=== PATIENT | female | born 1970 | race Caucasian/White ===

== ENCOUNTER 2016-11-15 01:05 | Inpatient (IN) | payer OTHER ==
[2016-11-15] MEDS ORDERED: SODIUM CHLORIDE 0.9% 500 ML IV STA (01:14)
[2016-11-15 01:38] LABS: Basophils # (A) 0.1 k/uL (0-0.2); Basophils % (A) 2 %; CH 38.5; CHCM 34.2; Eosinophils % (A) 1 %; HCT 44.3 % (34.0-46.0); HDW 2.03; HGB 14.8 gm/dL (11.4-16.0); Luc # (Auto) 0.05; Luc % (Auto) 2; Lymphocytes # (A) 0.6 k/uL (1.0-4.8); Lymphocytes % (A) 20 %; MCH 37.5 pg (25.0-35.0); MCHC 33.3 g/dL (31.0-37.0); MCV 112.7 fL (80.0-100.0); Macrocytosis Marked; Mean Platelet Volume 9.7; Monocytes # (A) 0.2 k/uL (0-1.0); Monocytes % (A) 6 %; Neutrophils # (A) 2.1 k/uL (1.3-7.7); Neutrophils % (A) 70 %; RBC 3.93 m/uL (3.80-5.40); RDW 13.9 % (11.5-15.5); WBC (Perox) 2.98
[2016-11-15 01:46] LABS: ALT 36 U/L (9-52); AST 53 U/L (14-36); Alkaline Phosphatase 69 U/L (38-126); Anion Gap 15 mmol/L; Blood Urea Nitrogen 12 mg/dL (7-17); Calcium 9.6 mg/dL (8.4-10.2); Carbon Dioxide 25 mmol/L (22-30); Chloride 97 mmol/L (98-107); Glucose 166 mg/dL (74-99); Magnesium 1.2 mg/dL (1.6-2.3); Non-African American GFR(MDRD) >60 (>60 ml/min/1.73 sqM); Potassium 3.3 mmol/L (3.5-5.1); Sodium 137 mmol/L (137-145); Total Bilirubin 1.4 mg/dL (0.2-1.3); Total Protein 7.4 g/dL (6.3-8.2)
[2016-11-15 01:54] LABS: Manual Review Performed
[2016-11-15 03:02] LABS: Large Platelets Flag Slight
[2016-11-15] MEDS ORDERED: LORazepam 2 MG/ML SYRINGE IV PRN ×2 (03:16)
[2016-11-15] MEDS ORDERED: THIAMINE 100 MG/ML 2 ML VIAL IM STA (03:16)
[2016-11-15] MEDS: SODIUM CHLORIDE 0.9% 1,000 ML IV SCH ×2 (03:34→20:58)
[2016-11-15] MEDS: MAGNESIUM SULFATE-D5W PMX 1 GM in DEXTROSE/WATER 1 100ML.BAG IVPB SCH ×2 (03:35→06:03)
[2016-11-15] MEDS ORDERED: NALOXONE 0.4 MG/ML 1 ML VIAL IV PRN (03:49)
--- NOTE | 2016-11-15 04:11 | ED ---
General Adult HPI - General Chief complaint: Seizure Stated complaint: Seizure Time Seen by Provider: 11/15/16 01:14 Source: patient, family, EMS, RN notes reviewed Mode of arrival: EMS - History of Present Illness Initial comments: 46 yo female with known seizure disorder presents from home after having a generalized tonic-clonic seizure. "EMS and the patient state the seizure was approximately 2 minutes long. She was sitting on the couch when this occurred. There was no trauma. Patient's only complaint at this time is of generalized weakness. Patient has no other known medical problems. She was previously on Lamictal for seizures, she states that she is not taking this in several months and restarted this medication yesterday. She is uncertain of the dose. Patient does not follow with neurology at this time. Patient does admit to alcohol consumption, states her last drink was 4 days ago. - Related Data Allergies Allergy/AdvReac Type Severity Reaction Status Date / Time Penicillins Allergy Unknown Verified 11/15/16 01:11 Sulfa (Sulfonamide Allergy Unknown Verified 11/15/16 01:11 Antibiotics) Review of Systems ROS Statement: Those systems with pertinent positive or pertinent negative responses have been documented in the HPI. ROS Other: All systems not noted in ROS Statement are negative. Past Medical History Past Medical History: Seizure Disorder History of Any Multi-Drug Resistant Organisms: None Reported Additional Past Surgical History / Comment(s): Ruptured spleen Past Psychological History: Bipolar, Depression Smoking Status: Current every day smoker Past Alcohol Use History: Occasional Past Drug Use History: Marijuana General Exam Limitations: no limitations General appearance: alert, in no apparent distress Head exam: Present: atraumatic, normocephalic Eye exam: Present: normal appearance, PERRL, EOMI. Absent: scleral icterus, conjunctival injection ENT exam: Present: normal exam, normal oropharynx, mucous membranes moist Neck exam: Present: normal inspection. Absent: tenderness, meningismus Respiratory exam: Present: normal lung sounds bilaterally. Absent: respiratory distress, wheezes Cardiovascular Exam: Present: regular rate, normal rhythm, normal heart sounds GI/Abdominal exam: Present: soft. Absent: distended, tenderness, guarding Extremities exam: Present: normal inspection, normal capillary refill. Absent: pedal edema Neurological exam: Present: alert, oriented X3, CN II-XII intact. Absent: motor sensory deficit Psychiatric exam: Present: normal affect, normal mood Skin exam: Present: warm, dry, intact. Absent: cyanosis, diaphoretic Course Vital Signs 11/15/16 11/15/16 01:11 03:23 Temperature 97.6 F Pulse Rate 102 H 70 Respiratory 16 16 Rate Blood Pressure 128/94 122/60 O2 Sat by Pulse 97 99 Oximetry EKG Findings - EKG Comments: EKG Findings:: EKG shows normal sinus rhythm, ventricular rate 98, IN interval 122, QRS duration 76, QTC is prolonged at 546 Medical Decision Making - Medical Decision Making 46 yo female with history of seizure disorder recently restarted on her antiepileptics yesterday. Patient to minute clonic tonic seizure today. No injury. Patient does have a history of alcohol abuse, states she drinks several days week, she drinks primarily vodka half pint. Last drink was 4 days ago. Laboratory studies reveal a magnesium level of 1.2, consistent with alcohol abuse, as well as a potassium of 3.3. These are replaced. Patient's EKG does show QT prolongation likely related to hypomagnesemia. Other laboratory studies are unremarkable. Patient remains asymptomatic in seizure free while in the emergency department. Neurologic exam is nonfocal, there is no headache or head trauma. No imaging is obtained at this time. Patient seizure may be related to alcohol withdrawal, seizure disorder, or electrolyte abnormalities. Patient will be admitted for telemetry, likely replacement, and neurology evaluation. Antiepileptics choice is discussed with the pharmacist, and there is no evidence to indicate that Lamictal is a QT prolonging agent. Therefore she is continued on Lamictal. Diagnosis: Seizure, hypomagnesemia, hypokalemia - Lab Data Result diagrams: 11/15/16 01:29 11/15/16 01:29 Lab Results 11/15/16 11/15/16 Range/Units 01:29 01:29 WBC 3.0 L (3.8-10.6) k/uL RBC 3.93 (3.80-5.40) m/uL Hgb 14.8 (11.4-16.0) gm/dL Hct 44.3 (34.0-46.0) % MCV 112.7 H (80.0-100.0) fL MCH 37.5 H (25.0-35.0) pg MCHC 33.3 (31.0-37.0) g/dL RDW 13.9 (11.5-15.5) % Plt Count 53 L (150-450) k/uL Neutrophils % 70 % Lymphocytes % 20 % Monocytes % 6 % Eosinophils % 1 % Basophils % 2 % Neutrophils # 2.1 (1.3-7.7) k/uL Lymphocytes # 0.6 L (1.0-4.8) k/uL Monocytes # 0.2 (0-1.0) k/uL Eosinophils # 0.0 (0-0.7) k/uL Basophils # 0.1 (0-0.2) k/uL Manual Slide Review Performed Macrocytosis Marked Sodium 137 (137-145) mmol/L Potassium 3.3 L (3.5-5.1) mmol/L Chloride 97 L (98-107) mmol/L Carbon Dioxide 25 (22-30) mmol/L Anion Gap 15 mmol/L BUN 12 (7-17) mg/dL Creatinine 0.80 (0.52-1.04) mg/dL Est GFR (MDRD) Af Amer >60 (>60 ml/min/1.73 sqM) Est GFR (MDRD) Non-Af >60 (>60 ml/min/1.73 sqM) Glucose 166 H (74-99) mg/dL Calcium 9.6 (8.4-10.2) mg/dL Magnesium 1.2 L (1.6-2.3) mg/dL Total Bilirubin 1.4 H (0.2-1.3) mg/dL AST 53 H (14-36) U/L ALT 36 (9-52) U/L Alkaline Phosphatase 69 (38-126) U/L Total Protein 7.4 (6.3-8.2) g/dL Albumin 4.5 (3.5-5.0) g/dL Critical Care Time Critical Care Time: Yes Total Critical Care Time: 35 Disposition Clinical Impression: Generalized seizure, Hypomagnesemia Disposition: ADMITTED IP TO THIS [facility] Condition: Stable Referrals: None,Stated [Primary Care Provider] - 1-2 days Decision to Admit Reason: Admit from EC Decision Date: 11/15/16 Decision Time: 03:50
[2016-11-15] MEDS: POTASSIUM CHLORIDE 10 MEQ, LIDOCAINE 2% INJ 10 MG in SODIUM CHLORIDE 0.9% 100 ML IVPB SCH ×4 (05:18→10:39)
[2016-11-15 05:20] LABS: Appearance,Urine Cloudy (Clear); Bilirubin,Urine 1+ (Negative); Glucose,Urine (UA) Negative (Negative); Ketones,Urine 1+ (Negative); Leukocyte Esterase,Urine Moderate (Negative); Mucus,Urine Many /hpf; Nitrite,Urine Negative (Negative); Particle Count 6198; Protein,Urine 1+ (Negative); RBC,Urine 2 /hpf (0-5); Squamous Epithelial Cell,Urine 3 /hpf (0-4); UA Billing (MACRO vs. MICRO) MICRO; WBC,Urine 6 /hpf (0-5)
[2016-11-15 05:43] VITALS: BMI 19.8
[2016-11-15] MEDS: ACETAMINOPHEN TAB 325 MG TAB PO PRN (05:57)
[2016-11-15 06:36] VITALS: RESP 18
[2016-11-15] MEDS: LORazepam 2 MG/ML SYRINGE IV PRN ×2 (07:55→08:00)
[2016-11-15] MEDS ORDERED: PHENYTOIN SODIUM INJ 1,000 MG in SODIUM CHLORIDE 0.9% 100 ML IVPB STA (08:11)
[2016-11-15] MEDS ORDERED: lamoTRIgine 25 MG TAB PO SCH (09:00)
--- NOTE | 2016-11-15 09:02 | CT ---
EXAMINATION TYPE: CT brain wo con DATE OF EXAM: 11/15/2016 COMPARISON: NONE HISTORY: seizure CT DLP: 940.7 mGycm. Automated Exposure Control for Dose Reduction was Utilized. TECHNIQUE: CT scan of the head is performed without contrast. FINDINGS: Ventricles of normal size. There is no mass effect nor midline shift. There is no sign of i ntracranial hemorrhage. The calvarium is intact.. IMPRESSION: Negative CT scan of the brain..
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
[2016-11-15] MEDS: lamoTRIgine 25 MG TAB PO SCH ×2 (10:39→20:54)
[2016-11-15 11:22] LABS: Basophils % (A) 0 %; CHCM 33.7; Eosinophils % (A) 1 %; HCT 40.3 % (34.0-46.0); HDW 2.03; HGB 13.8 gm/dL (11.4-16.0); Luc # (Auto) 0.08; Luc % (Auto) 2; Lymphocytes # (A) 0.8 k/uL (1.0-4.8); Lymphocytes % (A) 19 %; MCH 38.7 pg (25.0-35.0); MCHC 34.2 g/dL (31.0-37.0); MCV 113.2 fL (80.0-100.0); Macrocytosis Marked; Monocytes # (A) 0.2 k/uL (0-1.0); Monocytes % (A) 5 %; Neutrophils # (A) 2.8 k/uL (1.3-7.7); Neutrophils % (A) 73 %; RBC 3.56 m/uL (3.80-5.40); RDW 13.9 % (11.5-15.5); WBC 3.9 k/uL (3.8-10.6); WBC (Perox) 4.03
[2016-11-15 11:29] LABS: Anion Gap 12 mmol/L; Blood Urea Nitrogen 10 mg/dL (7-17); Calcium 9.4 mg/dL (8.4-10.2); Carbon Dioxide 24 mmol/L (22-30); Chloride 103 mmol/L (98-107); Glucose 101 mg/dL (74-99); Magnesium 1.9 mg/dL (1.6-2.3); Non-African American GFR(MDRD) >60 (>60 ml/min/1.73 sqM); Potassium 3.9 mmol/L (3.5-5.1); Sodium 139 mmol/L (137-145)
[2016-11-15 11:54] LABS: Manual Review Performed
[2016-11-15] MEDS: THIAMINE 100 MG TAB PO SCH (15:47)
[2016-11-15] MEDS: PHENYTOIN SODIUM EXTENDED 100 MG CAP PO SCH ×2 (15:47→21:57)
[2016-11-15] MEDS: FOLIC ACID 1 MG TAB PO SCH (15:47)
[2016-11-15] MEDS: CYANOCOBALAMIN 500 MCG TAB PO SCH (15:47)
[2016-11-15] MEDS ORDERED: NICOTINE 14MG/24HR PATCH TRANSDERM SCH (16:03)
--- NOTE | 2016-11-15 18:32 | EEG ---
DATE OF EE11/15/16 INDICATIONS FOR EXAMINATION: This patient is a 46-year-old female being evaluated for seizure disorder. AGE: 46. EEG FINDINGS: A routine 21 channel awake digital EEG recording was accomplished utilizing the 10-20 international system with bipolar and referential montages. The background activity in the most alert resting state consists of a low to medium amplitude, fairly well developed and well sustained 7 Hz activity over the posterior head regions. This posterior rhythm attenuates to eye opening. There is a small amount of low amplitude 18-20 Hz beta activity seen maximally over the anterior head regions. Muscle and movement artifact was observed on a few occasions during the tracing. Hyperventilation was not performed. Photic stimulation at flash frequencies of 2-30 Hz produced a good symmetrical occipital driving response. No epileptiform discharges were seen. IMPRESSION: This EEG is within normal limits for the patients age. The EEG failed to reveal any focal, lateralized or epileptiform abnormalities. Clinical correlation is recommended. MTDD
[2016-11-15] MEDS: NICOTINE 21MG/24HR PATCH TRANSDERM SCH (20:54)
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
[2016-11-16] MEDS: ACETAMINOPHEN TAB 325 MG TAB PO PRN (02:57)
[2016-11-16 06:28] LABS: Basophils % (A) 0 %; CH 37.5; CHCM 31.8; Eosinophils % (A) 1 %; HCT 38.7 % (34.0-46.0); HDW 2.01; HGB 12.3 gm/dL (11.4-16.0); Luc # (Auto) 0.09; Luc % (Auto) 3; Lymphocytes % (A) 28 %; MCH 37.7 pg (25.0-35.0); MCHC 31.8 g/dL (31.0-37.0); Macrocytosis Marked; Monocytes # (A) 0.3 k/uL (0-1.0); Monocytes % (A) 8 %; Neutrophils # (A) 2.1 k/uL (1.3-7.7); Neutrophils % (A) 61 %; RBC 3.27 m/uL (3.80-5.40); RDW 13.9 % (11.5-15.5); WBC 3.5 k/uL (3.8-10.6)
[2016-11-16 06:41] LABS: MCV 118.4 fL (80.0-100.0)
[2016-11-16 06:43] LABS: ALT 38 U/L (9-52); AST 65 U/L (14-36); Alkaline Phosphatase 49 U/L (38-126); Anion Gap 13 mmol/L; Blood Urea Nitrogen 12 mg/dL (7-17); Calcium 9.3 mg/dL (8.4-10.2); Carbon Dioxide 24 mmol/L (22-30); Chloride 106 mmol/L (98-107); Glucose 87 mg/dL (74-99); Magnesium 1.7 mg/dL (1.6-2.3); Non-African American GFR(MDRD) >60 (>60 ml/min/1.73 sqM); Potassium 3.4 mmol/L (3.5-5.1); Sodium 143 mmol/L (137-145); Total Bilirubin 1.2 mg/dL (0.2-1.3); Total Protein 6.5 g/dL (6.3-8.2)
[2016-11-16] MEDS: PHENYTOIN SODIUM EXTENDED 100 MG CAP PO SCH (08:13)
[2016-11-16] MEDS: NICOTINE 21MG/24HR PATCH TRANSDERM SCH (08:13)
[2016-11-16] MEDS: POTASSIUM CHLORIDE ER 20 MEQ TAB.ER PO SCH ×2 (08:13→09:53)
[2016-11-16 08:14] LABS: Manual Review Performed
[2016-11-16 08:43] VITALS: BP 112/71; PULSE 100; TEMP 97.9
[2016-11-16] MEDS ORDERED: NICOTINE 14MG/24HR PATCH TRANSDERM SCH (09:00)
[2016-11-16] MEDS: FOLIC ACID 1 MG TAB PO SCH (09:54)
[2016-11-16] MEDS: THIAMINE 100 MG TAB PO SCH (09:54)
[2016-11-16] MEDS: CYANOCOBALAMIN 500 MCG TAB PO SCH (09:54)
--- NOTE | 2016-11-16 11:58 | P.DS ---
Providers Date of admission: 11/15/16 03:52 Attending physician: Roger Carballo Consults: 11/15/16 03:50 Consult Physician Urgent Consulting Provider: Leonarda Peralta Consult Reason/Comments: Seizure Do you want consulting provider notified?: Yes, Notify in am Primary care physician: Stated None Hospital Course: This is a 46-year-old female with history of seizure disorder apparently was previously on Lamictal and Prozac however stopped taking the medications or 12 months ago. Patient has a history of alcohol overuse. Apparently has been on a binge in the recent times states her last drink was on Thursday comes into the hospital after having a seizure. Patient is unclear about her seizure history states that in the past was after an alcohol withdrawal that she was started on antiseizure medications Denies having any suicidal or homicidal thoughts. Denies having any headaches change in vision nausea vomiting abdominal pain or diarrhea Patient was noted to have hypomagnesemia and hypokalemia on admission Patient was restarted on Lamictal and phenytoin was started by our on-call neurologist No new overnight events are no seizure activity in the hospital at this time. A 22,017 No new overnight events. Patient is more awake today states that her onset of seizures were in her 20s apparently at that time he was secondary to alcohol withdrawal as well. Patient was started on Lamictal for her bipolar disorder and not for seizure activity Patient apparently has not taken her medications for over 2 months Physical exam Gen. appearance oriented 3 in no distress Neck is supple no JVD Lungs good air entry clear to auscultation no rhonchi or wheezing Heart S1-S2 heard regular rate and rhythm no murmurs appreciated Abdomen is soft nontender no organomegaly bowel sounds are intact Neurologically cranial nerves II-12 grossly intact no focal motor or sensory deficits noted Skin no abnormalities appreciated Plan: #1 refractory seizures this is likely due to the lack of medication adherence to Lamictal Prozac and withdrawal from alcohol or graft patient does not have a history of generalized seizure disorder since due to substance withdrawal and electrolyte dysfunction there is no indication to start a new medication on this patient #2 alcohol overuse #3 bicytopenia due to alcohol overuse #4 ongoing tobacco use #5 hypomagnesemia #6 hypokalemia #Mildly elevated bilirubin is likely due to #2 Discharge with thiamine for 7 days. Alcohol cessation was discussed Thrombocytopenia is noted which is secondary to alcohol use no bleeding episodes discharged home in a stable condition. Patient Condition at Discharge: Stable Plan - Discharge Summary New Discharge Prescriptions: Continue lamoTRIgine [LaMICtal] 25 mg PO BID FLUoxetine HCL [PROzac] 20 mg PO DAILY Discharge Medication List FLUoxetine HCL [PROzac] 20 mg PO DAILY 11/15/16 [History] lamoTRIgine [LaMICtal] 25 mg PO BID 11/15/16 [History] Follow up Appointment(s)/Referral(s): None,Stated [Primary Care Provider] - 1-2 days Patient Instructions/Handouts: Recurrent Seizures in Adults (DC) Discharge Disposition: HOME SELF-CARE
== END 2016-11-16 13:25 | disposition home or self-care (01) | DRG 101 ==
LOC: EC 01:05 → 6SEL 03:52
PROVIDERS: ADMIT Hospitalist; ATTEND Hospitalist
DX: G40.89 Other seizures (principal); D69.59 Other secondary thrombocytopenia; E83.42 Hypomagnesemia; E87.6 Hypokalemia; F17.210 Nicotine dependence, cigarettes, uncomplicated; F31.9 Bipolar disorder, unspecified; F41.9 Anxiety disorder, unspecified; F10.10 Alcohol abuse, uncomplicated; F12.90 Cannabis use, unspecified, uncomplicated; Z79.899 Other long term (current) drug therapy; Z88.0 Allergy status to penicillin; Z88.2 Allergy status to sulfonamides
CPT/HCPCS: 36415; 70450; 80048; 80053; 80175; 80185; 80306; 81001; 83735; 85025; 93005; 95819; 96361; 96365; 99285

== ENCOUNTER 2018-01-06 14:00 | Inpatient (IN) | payer OTHER ==
--- NOTE | 2018-01-06 14:44 | ED ---
General Adult HPI - General Chief complaint: Abdominal Pain Stated complaint: Abd Pain Source: patient Mode of arrival: ambulatory Limitations: no limitations - History of Present Illness Initial comments: Dictation was produced using hiogi dictation software. please excuse any grammatical, word or spelling errors. Chief Complaint: 47-year-old female with past medical history of seizures and depression presents by instructions from panic care physician for abdominal pain. History of Present Illness: Patient is a 47-year-old chronic alcoholic who presents with chief complaint of abdominal discomfort. Patient was seen by primary care physician yesterday. She was told to the emergency department. She went to [facility] where they had a 6 hour wait. She had labs drawn however left without seeing the physician. She is here today to complete that workup. Patient states she's been having abdominal discomfort for like the last week. She states she had increased weight gain. Discussed patient case with primary care physician who thinks she needed a CT abdomen or abdominal ultrasound emergently. She denies any constitutional symptoms. The ROS documented in this emergency department record has been reviewed and confirmed by me. Those systems with pertinent positive or negative responses have been documented in the HPI. All other systems are other negative and/or noncontributory. - Related Data Home Medications Medication Instructions Recorded Confirmed FLUoxetine HCL [PROzac] 40 mg PO DAILY 10/15/16 01/06/18 Niacin [Niacin ER] 500 mg PO DAILY 01/06/18 01/06/18 lamoTRIgine [LaMICtal] 25 mg PO BID 01/06/18 01/06/18 Allergies Allergy/AdvReac Type Severity Reaction Status Date / Time Sulfa (Sulfonamide Allergy Swelling Verified 01/06/18 14:52 Antibiotics) walnut Allergy Anaphylaxis Verified 01/06/18 14:52 Review of Systems ROS Statement: Those systems with pertinent positive or pertinent negative responses have been documented in the HPI. ROS Other: All systems not noted in ROS Statement are negative. Past Medical History Past Medical History: No Reported History Additional Past Medical History / Comment(s): depression History of Any Multi-Drug Resistant Organisms: None Reported Past Surgical History: No Surgical Hx Reported Past Psychological History: Anxiety, Depression Smoking Status: Current every day smoker Past Alcohol Use History: Daily, Heavy Past Drug Use History: None Reported General Exam - General Exam Comments Initial Comments: PHYSICAL EXAM: General Impression: Alert and oriented x3, not in acute distress, no respiratory distress HEENT: Normocephalic atraumatic, extra-ocular movements intact, pupils equal and reactive to light bilaterally, mucous membranes moist. Cardiovascular: Heart regular rate and rhythm, S1&S2 audible, no murmurs, rubs or gallops Chest: Lungs clear to auscultation bilaterally, no rhonchi, no wheeze, no rales Abdomen: Diffuse abdominal distention, positive fluid wave Musculoskeletal: Pulses present and equal in all extremities, no peripheral edema Motor: Power 5/5 bilaterally, no focal deficits noted Neurological: CN II-XII grossly intact, no focal motor or sensory deficits noted Skin: Intact with no visualized rashes Psych: Normal affect and mood Limitations: no limitations Course Vital Signs 01/06/18 14:06 Temperature 98.5 F Pulse Rate 109 H Respiratory 20 Rate Blood Pressure 106/76 O2 Sat by Pulse 98 Oximetry Medical Decision Making - Medical Decision Making ED course: 47-year-old female who presents with clinical presentation suspicious for ascites. Patient denies any constitutional symptoms. As upon arrival are within acceptable limits. There is very low clinical suspicion of a spontaneous bacterial peritonitis at this time. No indication for emergent or urgent paracentesis. Laboratory evaluation obtained.Laboratory evaluation tape. Hemoglobin 11.2. No old hemoglobin for comparison. Macrocytic anemia., 89. INR is 1.4. Metabolic panel was obtained with mild gap acidosis. Glucose 108. Mild transaminitis with total bilirubin of 1.8. Abdominal CT was obtained showing multiple hepatic lesions, perihepatic ascites. Diseases without to be neoplastic in etiology. Patient is a chronic alcoholic since unclear whether this lesions are from chronic alcoholism versus neoplasm. Patient admitted to internal medicine for likely paracentesis, GI consult and evaluation of liver lesions. - Lab Data Result diagrams: 01/06/18 15:18 01/06/18 15:18 Lab Results 01/06/18 01/06/18 01/06/18 Range/Units 15:18 15:18 15:18 WBC 9.2 (3.8-10.6) k/uL RBC 2.93 L (3.80-5.40) m/uL Hgb 11.2 L (11.4-16.0) gm/dL Hct 34.0 (34.0-46.0) % MCV 116.1 H (80.0-100.0) fL MCH 38.3 H (25.0-35.0) pg MCHC 33.0 (31.0-37.0) g/dL RDW 13.1 (11.5-15.5) % Plt Count 89 L (150-450) k/uL Neutrophils % 81 % Lymphocytes % 9 % Monocytes % 7 % Eosinophils % 1 % Basophils % 0 % Neutrophils # 7.4 (1.3-7.7) k/uL Lymphocytes # 0.8 L (1.0-4.8) k/uL Monocytes # 0.6 (0-1.0) k/uL Eosinophils # 0.1 (0-0.7) k/uL Basophils # 0.0 (0-0.2) k/uL Manual Slide Review Performed Polychromasia Present Poikilocytosis (manual Present Macrocytosis Marked PT 13.5 H (9.0-12.0) sec INR 1.4 H (<1.2) Sodium 135 L (137-145) mmol/L Potassium 4.1 (3.5-5.1) mmol/L Chloride 101 (98-107) mmol/L Carbon Dioxide 21 L (22-30) mmol/L Anion Gap 13 mmol/L BUN 4 L (7-17) mg/dL Creatinine 0.53 (0.52-1.04) mg/dL Est GFR (CKD-EPI)AfAm >90 (>60 ml/min/1.73 sqM) Est GFR (CKD-EPI)NonAf >90 (>60 ml/min/1.73 sqM) Glucose 108 H (74-99) mg/dL Calcium 8.3 L (8.4-10.2) mg/dL Magnesium 1.9 (1.6-2.3) mg/dL Total Bilirubin 1.8 H (0.2-1.3) mg/dL AST 128 H (14-36) U/L ALT 37 (9-52) U/L Alkaline Phosphatase 152 H (38-126) U/L Total Protein 6.8 (6.3-8.2) g/dL Albumin 3.1 L (3.5-5.0) g/dL Lipase 223 (23-300) U/L Disposition Clinical Impression: Liver lesion Disposition: ADMITTED IP TO THIS HOSP Condition: Fair Referrals: Mary Aburto DO [Primary Care Provider] - 1-2 days Decision Time: 16:29
[2018-01-06 15:30] LABS: Basophils % (A) 0 %; Eosinophils # (A) 0.1 k/uL (0-0.7); Eosinophils % (A) 1 %; HGB 11.2 gm/dL (11.4-16.0); Lymphocytes # (A) 0.8 k/uL (1.0-4.8); Lymphocytes % (A) 9 %; MCH 38.3 pg (25.0-35.0); MCV 116.1 fL (80.0-100.0); Macrocytosis Marked; Mean Platelet Volume 10.1; Monocytes # (A) 0.6 k/uL (0-1.0); Monocytes % (A) 7 %; Neutrophils # (A) 7.4 k/uL (1.3-7.7); Neutrophils % (A) 81 %; RBC 2.93 m/uL (3.80-5.40); RDW 13.1 % (11.5-15.5); WBC 9.2 k/uL (3.8-10.6)
[2018-01-06 15:31] LABS: INR 1.4 (<1.2); Prothrombin Time 13.5 sec (9.0-12.0)
[2018-01-06 15:34] LABS: ALT 37 U/L (9-52); AST 128 U/L (14-36); Albumin 3.1 g/dL (3.5-5.0); Alkaline Phosphatase 152 U/L (38-126); Anion Gap 13 mmol/L; Blood Urea Nitrogen 4 mg/dL (7-17); Calcium 8.3 mg/dL (8.4-10.2); Carbon Dioxide 21 mmol/L (22-30); Chloride 101 mmol/L (98-107); Glucose 108 mg/dL (74-99); Lipase 223 U/L (23-300); Magnesium 1.9 mg/dL (1.6-2.3); Potassium 4.1 mmol/L (3.5-5.1); Sodium 135 mmol/L (137-145); Total Bilirubin 1.8 mg/dL (0.2-1.3); Total Protein 6.8 g/dL (6.3-8.2)
[2018-01-06 15:46] LABS: Poikilocytosis (M) Present; Polychromasia Present
[2018-01-06 15:47] LABS: Platelet Count 89 k/uL (150-450)
--- NOTE | 2018-01-06 15:53 | CT ---
EXAMINATION TYPE: CT abdomen pelvis wo con DATE OF EXAM: 01/06/2018 COMPARISON: None HISTORY: abdominal pain, distention, elevated liver enzymes CT DLP: 398.6 mGycm Automated exposure control for dose reduction was used. TECHNIQUE: Helical acquisition of images was performed from the lung bases through the pelvis. FINDINGS: There are numerous hypoattenuated hepatic lesions with the most defined measuring 5.7 x 8.6 cm. There appears to background hepatic disease as there is a nodular contour of the liver left hepatic lobe a trophy. There is moderate perihepatic ascites and recanalization of the umbilical vein as well as per iportal adenopathy with the largest lymph node measuring 1.5 cm in short axis, and diffuse mesenteric edema. There is also congestive colopathy of the transverse colon as it courses near the hepatorenal fossa on image 39 with thickened hernandes. This extends to the ascending colon. Congestive colopathy is also seen of the splenic flexure such as on image 27. There is mass effect upon the inferior vena ca va by the hepatic masses such as on image 26. The gallbladder is elongated. No cholelithiasis. Scattered prominent mesenteric lymph nodes are seen in addition to mesenteric congestion. No dilated large or small bowel is seen. Uterus is grossly unremarkable. Urinary bladder is incompletely distend ed. Abdominal aorta is of normal course and caliber with mild atherosclerosis. The unenhanced kidneys , adrenal glands, and pancreas are unremarkable. The spleen is nonenlarged measuring 9.8 cm in cranio caudal dimension. Osseous structures are intact. IMPRESSION: MULTIPLE HYPOATTENUATED HEPATIC LESIONS SUSPICION FOR UNDERLYING HEPATOCELLULAR DISEASE, PERIHEPATIC ASCITES (MODERATE ABDOMINOPELVIC ASCITES), PERIPORTAL EDEMA, AND MESENTERIC CONGESTION RESULTING IN C ONGESTIVE COLOPATHY. HEPATIC LESIONS ARE SUSPECTED TO BE NEOPLASTIC, EITHER PRIMARY OR SECONDARY, ALT DIA MULTIFOCAL ABSCESSES ARE POSSIBLE IN THE APPROPRIATE CLINICAL SETTING. THESE LESIONS ARE INCOMP LETELY EVALUATED WITHOUT CONTRAST AND COULD BE FURTHER ASSESSED WITH THREE-PHASE MRI OR BIOPSY.
[2018-01-06] MEDS ORDERED: NALOXONE 0.4 MG/ML 1 ML VIAL IV PRN (16:22)
[2018-01-06] MEDS ORDERED: NICOTINE 7MG/24HR PATCH TRANSDERM STA (16:25)
[2018-01-06] MEDS ORDERED: LORazepam 2 MG/ML INJ IV PRN ×2 (16:26)
[2018-01-06] MEDS ORDERED: THIAMINE 100 MG/ML 2 ML VIAL IM STA (16:26)
[2018-01-06] MEDS ORDERED: SODIUM CHLORIDE 0.9% 500 ML IV STA (16:26)
[2018-01-06] MEDS: LORazepam 2 MG/ML INJ IV PRN (17:00)
--- NOTE | 2018-01-06 17:42 | P.HPIM ---
History of Present Illness 47-year-old pleasant female came in the because of increasing ascites abdominal distention and her pants are not fitting anymore. Patient does have history of alcoholism does drink alcohol on daily basis about 5 drinks of wine. Tried to cut down in the past and had withdrawals in the past because of this. Patient the was never diagnosed to have cirrhosis. CAT scan of the abdomen was obtained which did show significant ascites and there are multiple lesions in the liver with possibly of metastatic disease. I'm obtaining hepatitis panel and also fetoprotein. We will obtain therapy can diagnostic paracentesis. Patient was started on IV Lasix and the patient was also started on Ativan CIWA protocol, denied any hematemesis hematochezia or bright blood red blood per rectum Review of Systems REVIEW OF SYSTEMS: CONSTITUTIONAL: No fever, no malaise, no fatigue. HEENT: No recent visual problems or hearing problems. Denied any sore throat. CARDIOVASCULAR: No chest pain, orthopnea, PND, no palpitations, no syncope. PULMONARY: No shortness of breath, no cough, no hemoptysis. GASTROINTESTINAL: No diarrhea, no nausea, no vomiting, no abdominal pain. Normoactive bowel sounds. NEUROLOGICAL: No headaches, no weakness, no numbness. HEMATOLOGICAL: Denies any bleeding or petechiae. GENITOURINARY: Denies any burning micturition, frequency, or urgency. MUSCULOSKELETAL/RHEUMATOLOGICAL: Denies any joint pain, swelling, or any muscle pain. ENDOCRINE: Denies any polyuria or polydipsia. The rest of the 14-point review of systems is negative. Past Medical History Past Medical History: No Reported History Additional Past Medical History / Comment(s): depression History of Any Multi-Drug Resistant Organisms: None Reported Past Surgical History: No Surgical Hx Reported Past Psychological History: Anxiety, Depression Smoking Status: Current every day smoker Past Alcohol Use History: Daily, Heavy Past Drug Use History: None Reported Medications and Allergies Home Medications Medication Instructions Recorded Confirmed Type FLUoxetine HCL [PROzac] 40 mg PO DAILY 10/15/16 01/06/18 History Niacin [Niacin ER] 500 mg PO DAILY 01/06/18 01/06/18 History lamoTRIgine [LaMICtal] 25 mg PO BID 01/06/18 01/06/18 History Allergies Allergy/AdvReac Type Severity Reaction Status Date / Time Sulfa (Sulfonamide Allergy Swelling Verified 01/06/18 14:52 Antibiotics) walnut Allergy Anaphylaxis Verified 01/06/18 14:52 Physical Exam Vitals: Vital Signs Temp Pulse Resp BP Pulse Ox 01/06/18 17:15 98.4 F 01/06/18 16:27 89 16 101/61 97 01/06/18 14:06 98.5 F 109 H 20 106/76 98 Intake and Output 01/06/18 01/06/18 01/06/18 06:59 14:59 22:59 Other: Weight 62.051 kg PHYSICAL EXAMINATION: GENERAL: The patient is alert and oriented x3, not in any acute distress. Well developed, well nourished. HEENT: Pupils are round and equally reacting to light. EOMI. No scleral icterus. No conjunctival pallor. Normocephalic, atraumatic. No pharyngeal erythema. No thyromegaly. CARDIOVASCULAR: S1 and S2 present. No murmurs, rubs, or gallops. PULMONARY: Chest is clear to auscultation, no wheezing or crackles. ABDOMEN: Abdomen is distended, shifting dullness no tenderness. MUSCULOSKELETAL: No joint swelling or deformity. EXTREMITIES: No cyanosis, clubbing, or pedal edema. NEUROLOGICAL: Gross neurological examination did not reveal any focal deficits. SKIN: No rashes. Results CBC & Chem 7: 01/06/18 15:18 01/06/18 15:18 Labs: Abnormal Lab Results - Last 24 Hours (Table) 01/06/18 01/06/18 01/06/18 Range/Units 15:18 15:18 15:18 RBC 2.93 L (3.80-5.40) m/uL Hgb 11.2 L (11.4-16.0) gm/dL MCV 116.1 H (80.0-100.0) fL MCH 38.3 H (25.0-35.0) pg Plt Count 89 L (150-450) k/uL Lymphocytes # 0.8 L (1.0-4.8) k/uL PT 13.5 H (9.0-12.0) sec INR 1.4 H (<1.2) Sodium 135 L (137-145) mmol/L Carbon Dioxide 21 L (22-30) mmol/L BUN 4 L (7-17) mg/dL Glucose 108 H (74-99) mg/dL Calcium 8.3 L (8.4-10.2) mg/dL Total Bilirubin 1.8 H (0.2-1.3) mg/dL AST 128 H (14-36) U/L Alkaline Phosphatase 152 H (38-126) U/L Albumin 3.1 L (3.5-5.0) g/dL Assessment and Plan Plan: -Alcoholic cirrhosis: If patient blood pressure is okay patient will be started on Lasix will order diagnostic and paracentesis. No signs of spontaneous bacterial peritonitis -Alcohol abuse: Counseling was provided Given all call withdrawal: Patient will be started on Ativan CIWA protocol -Acute alcoholic hepatitis with positive a colic gastritis patient will be started on Protonix -Coagulopathy secondary to liver disease -Elevated MCV secondary to cirrhosis and alcoholism. -Bipolar -Nicotine abuse: Counseling was provided -Lesions on the liver will need a biopsy once she is stabilized regarding cirrhosis and alcohol withdrawal perspective
[2018-01-06 18:16] VITALS: BMI 22.7
[2018-01-06] MEDS: lamoTRIgine 25 MG TAB PO SCH (21:38)
[2018-01-06] MEDS: FUROSEMIDE 10 MG/ML 4 ML VIAL IV SCH (21:40)
[2018-01-07] MEDS: LORazepam 2 MG/ML INJ IV PRN ×2 (02:55→11:05)
[2018-01-07 04:20] LABS: Hepatitis A Antibody IgM Non-Reactive (Non-Reactive); Hepatitis B Core IgM Non-Reactive (Non-Reactive)
[2018-01-07 08:03] LABS: ALT 36 U/L (9-52); AST 101 U/L (14-36); Albumin 2.3 g/dL (3.5-5.0); Alkaline Phosphatase 122 U/L (38-126); Anion Gap 6 mmol/L; Blood Urea Nitrogen 6 mg/dL (7-17); Calcium 7.8 mg/dL (8.4-10.2); Carbon Dioxide 27 mmol/L (22-30); Chloride 102 mmol/L (98-107); Glucose 86 mg/dL (74-99); Potassium 3.5 mmol/L (3.5-5.1); Sodium 135 mmol/L (137-145); Total Bilirubin 1.9 mg/dL (0.2-1.3); Total Protein 5.4 g/dL (6.3-8.2)
[2018-01-07 08:21] LABS: HCT 27.7 % (34.0-46.0); MCHC 32.8 g/dL (31.0-37.0); MCV 115.6 fL (80.0-100.0); Macrocytosis Marked; Mean Platelet Volume 9.2; RDW 13.6 % (11.5-15.5); WBC 6.1 k/uL (3.8-10.6)
[2018-01-07 08:25] LABS: HGB 9.1 gm/dL (11.4-16.0); Platelet Count 69 k/uL (150-450)
--- NOTE | 2018-01-07 10:16 | P.CONS ---
History of Present Illness - Reason for Consult Consult date: 01/07/18 Liver lesions Requesting physician: Gigi Wolff - Chief Complaint Abdominal pain - History of Present Illness 47-year-old female admitted with acute abdominal pain 1 week with increased weight gain abdominal bloatedness. Past medical history of EtOH abuse drinks wine on a daily basis. CT abdomen and pelvis reported nodular contour to liver recannulization of umbilical vein as well as. Portal adenopathy largest lymph node measuring 1.5 cm with diffuse mesenteric edema significant ascites with multiple hypoattenuated lesions in the liver suspicion for underlying hepatocellular disease possibility of metastatic disease however multifocal abscesses could not be excluded. Denies fever chills hematemesis hematochezia melena. White count 6.1-9.2. Hemoglobin 9.1-11.2. MCV 115. Platelet 69-89. INR 1.4. Total bilirubin 1.8-1.9. AST 101-120. ALT 36-37. AP 122-152. AFP 2.7. Lipase 223. Hepatitis screen nonreactive. Review of Systems Constitutional: Denies fever, chills, sweats, reported weight gain denies weight loss. HEENT: Negative for migraines, blurred vision or loss, earaches, drainage, tinnitus, oral mucosal lesions, dysphagia, or odynophagia. CARDIAC: Negative for chest pain, arrhythmias, or palpitation. RESPIRATORY: Negative for shortness of breath, hemoptysis, cough, or sputum production. GI: See HPI for pertinent findings. : Negative for hematuria, urgency, frequency, polyuria, or dysuria. GYNc: Denies possibility of . Negative vaginal discharge. MUSCULOSKELETAL: Negative for muscle aches, swelling, arthritis, and arthralgias. NEUROLOGIC: Negative for stroke or TIA. ENDOCRINE: Negative for thyroid problems. SKIN: Negative for rash or itching. PSYCHIATRIC: Negative history for depression and anxiety Past Medical History Past Medical History: Asthma Additional Past Medical History / Comment(s): depression History of Any Multi-Drug Resistant Organisms: None Reported Past Surgical History: No Surgical Hx Reported Past Psychological History: Anxiety, Depression Smoking Status: Current every day smoker Past Alcohol Use History: Daily, Heavy Past Drug Use History: None Reported Medications and Allergies Home Medications Medication Instructions Recorded Confirmed Type FLUoxetine HCL [PROzac] 40 mg PO DAILY 10/15/16 01/06/18 History Niacin [Niacin ER] 500 mg PO DAILY 01/06/18 01/06/18 History lamoTRIgine [LaMICtal] 25 mg PO BID 01/06/18 01/06/18 History Allergies Allergy/AdvReac Type Severity Reaction Status Date / Time Sulfa (Sulfonamide Allergy Swelling Verified 01/06/18 14:52 Antibiotics) walnut Allergy Anaphylaxis Verified 01/06/18 14:52 Physical Exam Vitals: Vital Signs Temp Pulse Pulse Resp BP BP Pulse Ox 01/07/18 07:00 98.4 F 93 16 91/61 01/07/18 00:45 15 01/07/18 00:35 100 F H 119 H 15 93/59 93 L 01/06/18 20:50 119 H 15 01/06/18 19:00 98.4 F 108 H 16 94 L 01/06/18 17:15 98.4 F 01/06/18 16:27 89 16 101/61 97 01/06/18 14:06 98.5 F 109 H 20 106/76 98 Intake and Output 01/06/18 01/07/18 01/07/18 22:59 06:59 14:59 Intake Total 0 500 Balance 0 500 Intake: Intake, IV Titration 500 Amount Sodium Chloride 0.9% 500 500 ml @ 999 mls/hr IV .Q31M STA Rx#:[id number] Oral 0 Other: # Voids 2 2 Weight 62.051 kg General appearance: The patient is alert, oriented, in no acute distress. HET: Head is normocephalic and atraumatic. Pupils are equal and reactive. Oropharynx is clear without lesions. Neck: Supple without lymphadenopathy. Trachea midline. Heart: S1 S2. Regular rate and rhythm. Lungs: No crackles or wheezes are heard. Abdomen: Soft, mild midabdomen tenderness with mild ascites normal bowel sounds. No peritoneal signs. No palpable organomegaly or masses. Extremities: Normal skin color and turgor. No cyanosis, rash, ulceration, clubbing, or edema. Radial and pedal pulses are 2/4 bilaterally. Neurological: No focal deficits. Strength and sensation are grossly intact. Results CBC & Chem 7: 01/07/18 07:11 01/07/18 07:11 Labs: Abnormal Lab Results - Last 24 Hours (Table) 01/06/18 01/06/18 01/06/18 Range/Units 15:18 15:18 15:18 RBC 2.93 L (3.80-5.40) m/uL Hgb 11.2 L (11.4-16.0) gm/dL Hct (34.0-46.0) % MCV 116.1 H (80.0-100.0) fL MCH 38.3 H (25.0-35.0) pg Plt Count 89 L (150-450) k/uL Lymphocytes # 0.8 L (1.0-4.8) k/uL PT 13.5 H (9.0-12.0) sec INR 1.4 H (<1.2) Sodium 135 L (137-145) mmol/L Carbon Dioxide 21 L (22-30) mmol/L BUN 4 L (7-17) mg/dL Glucose 108 H (74-99) mg/dL Calcium 8.3 L (8.4-10.2) mg/dL Total Bilirubin 1.8 H (0.2-1.3) mg/dL AST 128 H (14-36) U/L Alkaline Phosphatase 152 H (38-126) U/L Total Protein (6.3-8.2) g/dL Albumin 3.1 L (3.5-5.0) g/dL 01/07/18 01/07/18 Range/Units 07:11 07:11 RBC 2.40 L (3.80-5.40) m/uL Hgb 9.1 L D (11.4-16.0) gm/dL Hct 27.7 L (34.0-46.0) % MCV 115.6 H (80.0-100.0) fL MCH 38.0 H (25.0-35.0) pg Plt Count 69 L (150-450) k/uL Lymphocytes # (1.0-4.8) k/uL PT (9.0-12.0) sec INR (<1.2) Sodium 135 L (137-145) mmol/L Carbon Dioxide (22-30) mmol/L BUN 6 L (7-17) mg/dL Glucose (74-99) mg/dL Calcium 7.8 L (8.4-10.2) mg/dL Total Bilirubin 1.9 H (0.2-1.3) mg/dL AST 101 H (14-36) U/L Alkaline Phosphatase (38-126) U/L Total Protein 5.4 L (6.3-8.2) g/dL Albumin 2.3 L (3.5-5.0) g/dL CT scan - abdomen: report reviewed (Dr. Alcantar) Assessment and Plan (1) Abdominal pain Narrative/Plan: 47-year-old female admitted with acute abdominal pain 1 week with increased abdominal distention radiographic imaging consistent with new onset of ascites and cirrhotic-appearing contoured liver most likely alcohol related however underlying chronic liver disease cannot be excluded. CT reported multiple hypoattenuating lesions possible neoplasm possible multifocal abscesses within the differential. Current Visit: Yes Status: Acute Code(s): R10.9 - UNSPECIFIED ABDOMINAL PAIN SNOMED Code(s): 86065626 (2) ETOH abuse Current Visit: Yes Status: Acute Code(s): F10.10 - ALCOHOL ABUSE, UNCOMPLICATED SNOMED Code(s): 12129086 (3) Ascites Current Visit: Yes Status: Acute Code(s): R18.8 - OTHER ASCITES SNOMED Code(s): 583218289 (4) Cirrhosis of liver Narrative/Plan: possible alcohol cirrhosis Current Visit: Yes Status: Acute Code(s): K74.60 - UNSPECIFIED CIRRHOSIS OF LIVER SNOMED Code(s): 53954777 (5) Liver lesion Current Visit: Yes Status: Acute Code(s): K76.9 - LIVER DISEASE, UNSPECIFIED SNOMED Code(s): 000288569 Plan: 1. Therapeutic diagnostic paracentesis. Hepatitis screen and AFP marker reviewed. CEA. 2. Recommend MRI/MRCP after paracentesis. Consideration for chronic liver disease workup based on clinical course and MRI findings. Thank you for this kind referral and the opportunity to participate in the care of your patient. This consultation was discussed with Dr. Alcantar. The impression and plan of care have been directed as dictated.
[2018-01-07] MEDS: PANTOPRAZOLE 40 MG/10 ML VIAL IVP SCH ×2 (10:28→10:32)
[2018-01-07] MEDS: lamoTRIgine 25 MG TAB PO SCH ×2 (10:32→21:06)
[2018-01-07] MEDS: FUROSEMIDE 10 MG/ML 4 ML VIAL IV SCH ×2 (10:32→21:02)
[2018-01-07] MEDS: FLUoxetine HCL 20 MG CAP PO SCH (10:32)
[2018-01-07] MEDS: THIAMINE 100 MG TAB PO SCH ×2 (15:32→17:36)
--- NOTE | 2018-01-07 15:37 | P.PN ---
Subjective 47-year-old admitted via for ascites does not have responded is back to peritonitis patient ascites did significantly improve with the diuretic therapy patient will undergo therapy can diagnostic processes today and the paracentesis labs will be obtained. Patient is also being treated for alcohol withdrawal, doesn't have much of withdrawals today. Patient will undergo MRCP for suspicious lesions on liver as per the CAT scan Constitutional: Denied any fatigue denied any fever. Cardio vascular: denied any chest pain, palpitations Gastrointestinal denied any nausea vomiting Pulmonary: Denied any shortness of breath cough Neurologic denied any new focal deficits Objective - Vital Signs Vital signs: Vital Signs Temp 98.4 F 01/07/18 07:00 Pulse 93 01/07/18 07:00 Resp 16 01/07/18 07:00 BP 91/61 01/07/18 07:00 Pulse Ox 93 L 01/07/18 00:35 Intake & Output 01/06/18 01/07/18 01/07/18 18:59 06:59 18:59 Intake Total 500 Output Total 300 Balance 500 -300 Weight 62.051 kg Intake: Intake, IV Titration 500 Amount Sodium Chloride 0.9% 500 500 ml @ 999 mls/hr IV .Q31M STA Rx#:[id number] Oral 0 Output: Urine 300 Other: # Voids 2 - Exam PHYSICAL EXAMINATION: GENERAL: The patient is alert and oriented x3, not in any acute distress. Well developed, well nourished. HEENT: Pupils are round and equally reacting to light. EOMI. No scleral icterus. No conjunctival pallor. Normocephalic, atraumatic. No pharyngeal erythema. No thyromegaly. CARDIOVASCULAR: S1 and S2 present. No murmurs, rubs, or gallops. PULMONARY: Chest is clear to auscultation, no wheezing or crackles. ABDOMEN: Abdomen is distended, shifting dullness no tenderness. Improved abdominal distention MUSCULOSKELETAL: No joint swelling or deformity. EXTREMITIES: No cyanosis, clubbing, or pedal edema. NEUROLOGICAL: Gross neurological examination did not reveal any focal deficits. SKIN: No rashes. - Labs CBC & Chem 7: 01/07/18 07:11 01/07/18 07:11 Labs: Abnormal Lab Results - Last 24 Hours (Table) 01/06/18 01/07/18 01/07/18 Range/Units 15:18 07:11 07:11 RBC 2.93 L 2.40 L (3.80-5.40) m/uL Hgb 11.2 L 9.1 L D (11.4-16.0) gm/dL Hct 27.7 L (34.0-46.0) % MCV 116.1 H 115.6 H (80.0-100.0) fL MCH 38.3 H 38.0 H (25.0-35.0) pg Plt Count 89 L 69 L (150-450) k/uL Lymphocytes # 0.8 L (1.0-4.8) k/uL Sodium 135 L (137-145) mmol/L BUN 6 L (7-17) mg/dL Calcium 7.8 L (8.4-10.2) mg/dL Total Bilirubin 1.9 H (0.2-1.3) mg/dL AST 101 H (14-36) U/L Total Protein 5.4 L (6.3-8.2) g/dL Albumin 2.3 L (3.5-5.0) g/dL Assessment and Plan Plan: -Alcoholic cirrhosis: If patient blood pressure is okay patient will be started on Lasix will order diagnostic and paracentesis. No signs of spontaneous bacterial peritonitis -Alcohol abuse: Counseling was provided Given all call withdrawal: Patient will be started on Ativan CIWA protocol -Acute alcoholic hepatitis with positive a colic gastritis patient will be started on Protonix -Coagulopathy secondary to liver disease -Elevated MCV secondary to cirrhosis and alcoholism. -Bipolar -Nicotine abuse: Counseling was provided -Lesions on the liver MRCP today
[2018-01-07 16:46] LABS: Cancer Antigen 19-9 31.8 U/mL (0.0-34.9)
--- NOTE | 2018-01-07 18:47 | MR ---
EXAMINATION TYPE: MR liver wo/w con and mrcp DATE OF EXAM: 01/07/2018 COMPARISON: HISTORY: Elevated LFT's, ascites, Abn CT CONTRAST: Standard multiplanar, multisequence MRI departmental protocol utilizing 6.5 mL intravenous Gadavist g adolinium contrast. FINDINGS: There is massive ascites. Gallbladder is large and measures 8.1 x 3.7 cm. There is some dil ation of the common bile duct. This measures up to 13 mm. There is some pruning of the intrahepatic b ile ducts. There appears to be filling defect in the distal common bile duct on the 3-D MRCP images. There are multiple somewhat rounded areas of low signal on the T2 images in the liver. These measure up to 8.5 cm. These have low signal on T1 images also and do not show any significant enhancement. En hancement is slightly less than the adjacent more normal-appearing liver parenchyma. There is normal branching pattern of the hepatic vessels within these abnormal areas that suggests that this is local ized parenchymal disease and not related to a neoplastic process or abscess. There is no mass effect upon the hepatic vessels. Kidneys have normal size and contour. There is no hydronephrosis. There is no evidence of adrenal mas s. Spleen appears normal. There is no evidence of a pancreatic mass. Pancreatic duct is not dilated. IMPRESSION: There is dilated common bile duct and some narrowing of the intrahepatic bile ducts. Possible filling defects within the distal common bile duct are suggestive of common duct stones. Multiple low signal areas in the liver on T1 and T2 images without enhancement and with normal hepati c vessel branching pattern is suggestive of multifocal hepatocellular disease. I do not see evidence for abscess or tumor. biopsy is probably needed to be definitive. Massive ascites.
[2018-01-08] MEDS: FLUoxetine HCL 20 MG CAP PO SCH (08:01)
[2018-01-08] MEDS: PANTOPRAZOLE 40 MG/10 ML VIAL IVP SCH (08:01)
[2018-01-08] MEDS: FUROSEMIDE 10 MG/ML 4 ML VIAL IV SCH ×2 (08:05→21:28)
[2018-01-08 08:24] VITALS: RESP 16
[2018-01-08 09:46] LABS: Mean Platelet Volume 9.6
[2018-01-08 09:53] LABS: INR 1.6 (<1.2); Prothrombin Time 14.9 sec (9.0-12.0)
[2018-01-08 10:00] LABS: Platelet Count 79 k/uL (150-450)
--- NOTE | 2018-01-08 11:45 | P.PN ---
Subjective Progress Note Date: 01/08/18 Principal diagnosis: abdominal pain 47-year-old female admitted with acute abdominal pain increased waking abdominal bloatedness ascites with underlying EtOH abuse. CT abdomen and pelvis reported features of a cirrhotic liver as well as liver masses. AFP CEA unremarkable. Follow-up liver MRI reported dilated common bile duct 13 mm narrowing of intrahepatic bile ducts possible filling defects within the distal common bile duct suggestive of common bile duct stones. Multifocal hepatocellular disease is suggested. No evidence for pancreatic tumor, abscess or hepatic tumor however biopsies probably needed to be definitive. Massive ascites. Patient underwent a repeated diagnostic paracentesis this morning 3.2 L removed. Total bilirubin yesterday 1.9. CMP pending. HCG not detected. CA-19-9 31.8. CEA 125; 277.3. Hepatitis screen nonreactive. Present labs platelets 79,000. INR 1.6. Objective - Vital Signs Vital signs: Vital Signs Temp 97.7 F 01/08/18 10:30 Pulse 95 01/08/18 11:09 Resp 16 01/08/18 11:09 BP 93/67 01/08/18 11:11 Pulse Ox 96 01/08/18 11:09 Intake & Output 01/07/18 01/08/18 01/08/18 18:59 06:59 18:59 Intake Total 440 Output Total 300 Balance -300 440 Intake: IV 200 Normal saline @20ml/Hr 200 Oral 240 Output: Urine 300 Other: # Voids 1 - Exam General appearance: The patient is alert, oriented, in no acute distress. HET: Head is normocephalic and atraumatic. Pupils are equal and reactive. Oropharynx is clear without lesions. Neck: Supple without lymphadenopathy. Trachea midline. Heart: S1 S2. Regular rate and rhythm. Lungs: No crackles or wheezes are heard. Abdomen: Soft, mild tenderness across mid abdomen last distended minimal ascites with bowel sounds. No peritoneal signs. No palpable organomegaly or masses. Extremities: Normal skin color and turgor. No cyanosis, rash, ulceration, clubbing, or edema. Radial and pedal pulses are 2/4 bilaterally. Neurological: No focal deficits. Strength and sensation are grossly intact. - Labs CBC & Chem 7: 01/08/18 09:38 01/07/18 07:11 Labs: Abnormal Lab Results - Last 24 Hours (Table) 01/07/18 01/08/1801/08/18 Range/Units 07:11 09:38 09:38 Plt Count 79 L (150-450) k/uL PT 14.9 H (9.0-12.0) sec INR 1.6 H (<1.2) CA 125 Antigen 277.3 H (0.0-30.1) U/mL Assessment and Plan (1) Abdominal pain Narrative/Plan: 47-year-old female admitted with acute abdominal pain 1 week with increased abdominal distention radiographic imaging consistent with new onset of ascites and cirrhotic-appearing contoured liver most likely alcohol related however underlying chronic liver disease cannot be excluded. Status post therapeutic diagnostic paracentesis. MRI liver reported dilated biliary tree 13 mm with suspected filling defect in the distal common bile duct hepatic masses seen on previous CT more suggestive of multi focal hepatocellular disease no evidence of hepatic tumor or abscess however biopsies probably needed to be definitive. Current Visit: Yes Status: Acute Code(s): R10.9 - UNSPECIFIED ABDOMINAL PAIN SNOMED Code(s): 41922509 (2) ETOH abuse Current Visit: Yes Status: Acute Code(s): F10.10 - ALCOHOL ABUSE, UNCOMPLICATED SNOMED Code(s): 17817928 (3) Ascites Current Visit: Yes Status: Acute Code(s): R18.8 - OTHER ASCITES SNOMED Code(s): 709112215 (4) Cirrhosis of liver Narrative/Plan: possible alcohol cirrhosis Current Visit: Yes Status: Acute Code(s): K74.60 - UNSPECIFIED CIRRHOSIS OF LIVER SNOMED Code(s): 84539416 (5) Liver lesion Current Visit: Yes Status: Acute Code(s): K76.9 - LIVER DISEASE, UNSPECIFIED SNOMED Code(s): 891037053 (6) Thrombocytopenia Current Visit: Yes Status: Acute Code(s): D69.6 - THROMBOCYTOPENIA, UNSPECIFIED SNOMED Code(s): 950523296 (7) Cholelithiasis Current Visit: Yes Status: Acute Code(s): K80.20 - CALCULUS OF GALLBLADDER W /O CHOLECYSTITIS W/O OBSTRUCTION SNOMED Code(s): 220378996 (8) Elevated liver enzymes Current Visit: Yes Status: Acute Code(s): R74.8 - ABNORMAL LEVELS OF OTHER SERUM ENZYMES SNOMED Code(s): 483823633 (9) Elevated CA-125 Current Visit: Yes Status: Acute Code(s): R97.1 - ELEVATED CANCER ANTIGEN 125 [CA 125] SNOMED Code(s): 609811658 Plan: 1. ERCP. 2. Continue symptomatic supportive measures. Outpatient follow-up in 2-3 weeks for reevaluation discussion of possible outpatient liver biopsy. 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 The patient has indicated understanding and acceptance of the risks and procedures discussed. Assessment and plan a care discussed with Dr. Villasenor
[2018-01-08] MEDS: THIAMINE 100 MG TAB PO SCH ×2 (11:55→16:35)
[2018-01-08] MEDS: lamoTRIgine 25 MG TAB PO SCH ×2 (11:56→21:33)
--- NOTE | 2018-01-08 12:00 | US ---
Therapeutic and diagnostic paracentesis. DATE OF EXAM: 01/08/2018 CLINICAL HISTORY: Ascites The procedure was discussed with the patient. The risks, complications, benefits, and alternatives we re discussed and any questions were answered. Informed consent was obtained. The patient was placed s upine on the ultrasound table and prepped and draped in the usual sterile fashion. All elements of maximal barrier technique were utilized. Under ultrasound guidance, access into the right lower quadrant was obtained, via the paracentesis catheter system and direct ultrasound guidanc e. Approximately 3.2 liters of straw-colored fluid was removed. The patient was stable throughout the pr ocedure and remained stable upon discharge from Department of Radiology. Sample sent to pathology for analysis. IMPRESSION: Successful paracentesis under ultrasound guidance.
[2018-01-08 13:24] LABS: ALT 36 U/L (9-52); AST 112 U/L (14-36); Albumin 2.7 g/dL (3.5-5.0); Alkaline Phosphatase 143 U/L (38-126); Anion Gap 10 mmol/L; Blood Urea Nitrogen 9 mg/dL (7-17); Calcium 8.3 mg/dL (8.4-10.2); Carbon Dioxide 24 mmol/L (22-30); Chloride 103 mmol/L (98-107); Glucose 97 mg/dL (74-99); Potassium 3.5 mmol/L (3.5-5.1); Sodium 137 mmol/L (137-145); Total Bilirubin 2.1 mg/dL (0.2-1.3); Total Protein 6.3 g/dL (6.3-8.2)
[2018-01-08] MEDS ORDERED: INDOMETHACIN 50MG SUPPOSITORY RECTAL ONE (15:00)
[2018-01-08] MEDS ORDERED: LEVOFLOXACIN 500MG-D5W PMX 500 MG in DEXTROSE/WATER 1 100ML.BAG IVPB ONE (16:00)
[2018-01-08 17:15] LABS: Appearance,BF Hazy; Color,BF Yellow; Nucleated Cells, Body Fluid 13 /uL; RBC, Body Fluid 299 /uL
[2018-01-08 17:18] LABS: Mononuclear WBC,Body Fluid 84 %; Polynuclear WBC,Body Fluid 16 %; Total Cells Counted,Body Fluid 100
[2018-01-08] MEDS: LORazepam 2 MG/ML INJ IV PRN (18:46)
[2018-01-08] MEDS ORDERED: PROPOFOL 10 MG/ML 20 ML VIAL IV ONE (19:24)
[2018-01-08] MEDS ORDERED: LIDOCAINE 1% INJ 10MG/ML (20 ML MDV) ONE (19:24)
[2018-01-08] MEDS ORDERED: MIDAZOLAM 2 MG/2 ML VIAL ONE (19:24)
[2018-01-08] MEDS ORDERED: IV FLUID CONTINUATION 1,000 ML IV ONE (19:28)
[2018-01-08] MEDS ORDERED: IOPAMIDOL-300 50ML BTL MISCELLANE ONE (19:51)
--- NOTE | 2018-01-08 20:06 | P.PCN ---
Date of Procedure: 01/08/18 Procedure(s) Performed: Procedure: Endoscopic retrograde cholangiopancreatography ERCP. Preoperative diagnosis: Suspected common bile duct stone. Postoperative diagnosis: Dilated common bile duct but no filling defects to suggest the common bile duct stone. Preparation and sedation: Was provided by anesthesia. Brief clinical history: The patient is a 47-year-old female who admitted with acute abdominal pain increased abdominal bloating/ascites with underlying EtOH abuse. CT abdomen and pelvis reported features of a cirrhotic liver as well as liver masses. AFP CEA unremarkable. Follow-up liver MRI reported dilated common bile duct 13 mm narrowing of intrahepatic bile ducts possible filling defects within the distal common bile duct suggestive of common bile duct stones. Multifocal hepatocellular disease is suggested. No evidence for pancreatic tumor, abscess or hepatic tumor however biopsies probably needed to be definitive. Massive ascites. Patient underwent a repeated diagnostic paracentesis this morning 3.2 L removed. Total bilirubin yesterday 1.9. CMP pending. HCG not detected. CA-19-9 31.8. CEA 125; 277.3. Hepatitis screen nonreactive. Other details are summarized in the history and physical and dictated consultations: Progress Notes. This evaluation is to assess for suspected common bile duct stone. Procedure: With the patient in the prone position and after informed consent and adequate sedation, I passed the Olympus video duodenoscope down the esophagus into the stomach then passed it through the pylorus into the duodenum and brought the papilla into view. The papilla appeared normal. Initial cannulation and injection with dye resulted in opacification of the pancreatic duct which appeared normal. Subsequently, I was able to selectively cannulate the common bile duct and inject dye to fill the biliary tree and the gallbladder. The common bile duct appeared somewhat dilated but there were no filling defects to suggest common bile duct stone. No other obvious abnormalities were noted. Radiology report will be dictated separately. The patient tolerated the procedure well. Plan: The patient was reassured. Will allow diet and continue to manage with the working diagnosis of alcoholic cirrhosis and portal hypertension and ascites. Further plans based on her course.
[2018-01-09] MEDS: lamoTRIgine 25 MG TAB PO SCH (09:29)
[2018-01-09] MEDS: FUROSEMIDE 10 MG/ML 4 ML VIAL IV SCH (09:29)
[2018-01-09] MEDS: FLUoxetine HCL 20 MG CAP PO SCH (09:30)
[2018-01-09] MEDS ORDERED: PANTOPRAZOLE 40 MG/10 ML VIAL IVP ONE (09:45)
[2018-01-09 11:17] VITALS: BP 97/73; PULSE 61; TEMP 97.8
[2018-01-09] MEDS: THIAMINE 100 MG TAB PO SCH (13:00)
--- NOTE | 2018-01-09 15:42 | FL ---
EXAMINATION TYPE: FL ERCP DATE OF EXAM: 01/08/2018 CLINICAL HISTORY: Elevated liver enzymes. Abnormal MRI. TECHNIQUE: Fluoroscopy. COMPARISON: None. FINDINGS: Fluoroscopic guidance was provided during ERCP procedure performed by Dr. Villasenor. A total of 46 seconds of fluoroscopic time was utilized during the procedure and 1 spot intraoperative image is acquired. Single image acquired shows cannulation at the duodenal ampulla with opacification of biliary system without obvious central filling defect. There is filling of cystic duct and gallbladder without defec t. Dilatation is noted of extrahepatic biliary system. Please refer to procedure note for further det ails as I was not present nor performed procedure. IMPRESSION: As Above.
--- NOTE | 2018-01-09 16:39 | P.DS ---
Providers Date of admission: 01/06/18 16:22 Attending physician: Gigi Wolff Consults: 01/06/18 16:29 Consult Physician Routine Consulting Provider: Juliana Alcantar Consult Reason/Comments: liver lesions Do you want consulting provider notified?: Yes Primary care physician: [facility] Course: 47-year-old admitted via for ascites does not have responded is back to peritonitis patient ascites did significantly improve with the diuretic therapy patient will undergo therapy can diagnostic processes today and the paracentesis labs will be obtained. Patient is also being treated for alcohol withdrawal, doesn't have much of withdrawals today. Patient will undergo MRCP for suspicious lesions on liver as per the CAT scan 01/09/2018 patient MRCP was suspicious for a cortical with the assist because of which patient underwent ERCP which did not show any common bile duct stone. Patient is clinically doing well is cleared for discharge from my gastric body perspective patient has minimally elevated nonspecific elevation of CA 125 CA-19 -9 is essentially within normal limits patient will be followed by gastroenterology as an outpatient and do biopsy patient will be discharged on Lasix 40 mg along with Aldactone 50 mg with repeat basic metabolic profile as an outpatient PHYSICAL EXAMINATION: GENERAL: The patient is alert and oriented x3, not in any acute distress. Well developed, well nourished. HEENT: Pupils are round and equally reacting to light. EOMI. No scleral icterus. No conjunctival pallor. Normocephalic, atraumatic. No pharyngeal erythema. No thyromegaly. CARDIOVASCULAR: S1 and S2 present. No murmurs, rubs, or gallops. PULMONARY: Chest is clear to auscultation, no wheezing or crackles. ABDOMEN: Abdomen is distended, shifting dullness no tenderness. Improved abdominal distention MUSCULOSKELETAL: No joint swelling or deformity. EXTREMITIES: No cyanosis, clubbing, or pedal edema. NEUROLOGICAL: Gross neurological examination did not reveal any focal deficits. SKIN: No rashes. Assessment and Plan Plan: -Alcoholic cirrhosis: Underwent paracentesis no signs or symptoms of back to peritonitis -Alcohol abuse: Counseling was provided Alcohol withdrawal withdrawal: No significant withdrawals today -Acute alcoholic hepatitis with positive a colic gastritis patient will be started on Protonix -Coagulopathy secondary to liver disease -Elevated MCV secondary to cirrhosis and alcoholism. -Bipolar -Nicotine abuse: Counseling was provided Multiple lesions in the liver patient will undergo biopsy as an outpatient. Patient Condition at Discharge: Fair Plan - Discharge Summary New Discharge Prescriptions: New Thiamine [Vitamin B-1] 100 mg PO BID@1200,1700 #30 tab Furosemide [Lasix] 40 mg PO DAILY #30 tablet Spironolactone [Aldactone] 50 mg PO DAILY #30 tab Continue FLUoxetine HCL [PROzac] 40 mg PO DAILY lamoTRIgine [LaMICtal] 25 mg PO BID Niacin [Niacin ER] 500 mg PO DAILY Discharge Medication List FLUoxetine HCL [PROzac] 40 mg PO DAILY 10/15/16 [History] Niacin [Niacin ER] 500 mg PO DAILY 01/06/18 [History] lamoTRIgine [LaMICtal] 25 mg PO BID 01/06/18 [History] Furosemide [Lasix] 40 mg PO DAILY #30 tablet 01/09/18 [Rx] Spironolactone [Aldactone] 50 mg PO DAILY #30 tab 01/09/18 [Rx] Thiamine [Vitamin B-1] 100 mg PO BID@1200,1700 #30 tab 01/09/18 [Rx] Follow up Appointment(s)/Referral(s): Be Villasenor MD [STAFF PHYSICIAN] - 01/19/18 3:00 pm Mary Aburto DO [Primary Care Provider] - 3 Days (CALL OFFICE TO SCHEDULE APPOINTMENT, OFFICE CLOSED AT TIME OF DISCHARGE.) Ambulatory/Diagnostic Orders: Basic Metabolic Panel [LAB.AMB] Time Frame: 3 Days, Location: None Selected Patient Instructions/Handouts: Gallstones (GEN), ERCP (Endoscopic Retrograde Cholangiopancreatography) (GEN), Ascites (ED), Paracentesis (DC) Discharge Disposition: HOME SELF-CARE
--- NOTE | 2018-01-18 19:00 | P.PN ---
Subjective Progress Note Date: 01/08/18 Progress note being dictated for Dr. Wolff. Interval history:47-year-old admitted via for ascites does not have responded is back to peritonitis patient ascites did significantly improve with the diuretic therapy patient will undergo therapy can diagnostic processes today and the paracentesis labs will be obtained. Patient is also being treated for alcohol withdrawal, doesn't have much of withdrawals today. Patient will undergo MRCP for suspicious lesions on liver as per the CAT scan 01/08/18 Underwent diagnostic paracentesis this morning with 3.2 L removed .Hepatitis screen negative. T bili 2.1,CA19-9 31.8, CEA 125 277.3. INR 1.6. Maintained on CIWA protocol, DTs much improved. MRI reported dilated common bile duct, some narrowing of the intrahepatic bile ducts, possible filling defects within the distal common bile duct suggestive of common bile duct stones , multifocal hepatocellular disease suggested with no evidence of tumor, abscess,massive ascites.Underwent ERCP today, reporting dilated common bile duct without filling defects to suggest, bile duct stone. Tolerated procedure well. Objective - Vital Signs Vital signs: Vital Signs Temp 97.7 F 01/08/18 10:30 Pulse 95 01/08/18 15:58 Resp 16 01/08/18 15:58 BP 93/67 01/08/18 11:11 Pulse Ox 96 01/08/18 11:09 Intake & Output 01/08/18 01/08/18 01/09/18 06:59 18:59 06:59 Intake Total 440 120 100 Balance 440 120 100 Intake: IV 200 120 100 Normal saline @20ml/Hr 200 120 Oral 240 Other: # Voids 1 - Exam GENERAL: The patient is alert and oriented x3, not in any acute distress. Well developed, well nourished. HEENT: Pupils are round and equally reacting to light. EOMI. No scleral icterus. No conjunctival pallor. Normocephalic, atraumatic. No pharyngeal erythema. No thyromegaly. CARDIOVASCULAR: S1 and S2 present. No murmurs, rubs, or gallops. PULMONARY: Chest is clear to auscultation, no wheezing or crackles. ABDOMEN: Abdomen is distended, minimal tenderness, mild ascites. Positive bowel sounds. MUSCULOSKELETAL: No joint swelling or deformity. EXTREMITIES: No cyanosis, clubbing, or pedal edema. NEUROLOGICAL: Gross neurological examination did not reveal any focal deficits. SKIN: No rashes. - Labs CBC & Chem 7: 01/08/18 09:38 01/08/18 12:40 Labs: Abnormal Lab Results - Last 24 Hours (Table) 01/08/18 01/08/18 01/08/18 Range/Units 09:38 09:38 12:40 Plt Count 79 L (150-450) k/uL PT 14.9 H (9.0-12.0) sec INR 1.6 H (<1.2) Calcium 8.3 L (8.4-10.2) mg/dL Total Bilirubin 2.1 H (0.2-1.3) mg/dL AST 112 H (14-36) U/L Alkaline Phosphatase 143 H (38-126) U/L Albumin 2.7 L (3.5-5.0) g/dL Assessment and Plan Assessment: -Alcoholic cirrhosis: Status post paracentesis, cytology pending. Status post ERCP reporting dilated common bile duct without filling defects to suggest, bile duct stone. -Alcohol abuse: Counseling was provided Alcohol withdrawal withdrawal: No significant withdrawals today -Acute alcoholic hepatitis -Coagulopathy secondary to liver disease -Elevated MCV secondary to cirrhosis and alcoholism. -Bipolar -Nicotine abuse: Counseling was provided -Multiple lesions in the liver patient will undergo biopsy as an outpatient. -Thrombocytopenia Plan continue current medication regime ,monitoring and symptomatic treatment. CIWA protocol. Diet advancement as per GI. Further workup for lesions outpatient with potential outpatient biopsy. Discharge planning in progress for tomorrow. The impression and plan of care has been dictated as directed. : I performed a history and examination of this patient, discussed the same with the dictator. I agree with the dictator's note ,documented as a scribe. Any additional findings or plans will be noted.
== END 2018-01-09 15:25 | disposition home or self-care (01) | DRG 433 ==
LOC: EC 14:00 → MERGE 16:22 → 3SUR 16:22
PROVIDERS: ADMIT Internal Medicine; ATTEND Internal Medicine
PROC: 0FJB8ZZ Inspection of Hepatobiliary Duct, Via Natural or Artificial Opening Endoscopic (ICD-10-PCS; 2018-01-08)
PROC: 0FJD8ZZ Inspection of Pancreatic Duct, Via Natural or Artificial Opening Endoscopic (ICD-10-PCS; 2018-01-08)
PROC: 0W9G3ZX Drainage of Peritoneal Cavity, Percutaneous Approach, Diagnostic (ICD-10-PCS; principal; 2018-01-08 09:00)
DX: K70.11 Alcoholic hepatitis with ascites (principal); D68.4 Acquired coagulation factor deficiency; E87.2 Acidosis; F10.239 Alcohol dependence with withdrawal, unspecified; K80.10 Calculus of gallbladder with chronic cholecystitis without obstruction; K70.31 Alcoholic cirrhosis of liver with ascites; D53.9 Nutritional anemia, unspecified; D69.59 Other secondary thrombocytopenia; F17.210 Nicotine dependence, cigarettes, uncomplicated; F32.9 Major depressive disorder, single episode, unspecified; F41.9 Anxiety disorder, unspecified; J45.909 Unspecified asthma, uncomplicated; K29.20 Alcoholic gastritis without bleeding; K76.9 Liver disease, unspecified; R59.0 Localized enlarged lymph nodes; R74.0 Nonspecific elevation of levels of transaminase and lactic acid dehydrogenase [LDH]; Z79.899 Other long term (current) drug therapy; Z88.2 Allergy status to sulfonamides; Z91.018 Allergy to other foods; Z71.6 Tobacco abuse counseling
CPT/HCPCS: 36415; 43260; 49083; 74176; 74183; 74330; 80053; 80074; 81025; 82042; 82105; 82378; 82945; 83690; 83735; 85025; 85027; 85049; 85610; 86301; 86304; 87070; 87075; 87205; 88108; 88305; 89050; 96361; 96372; 96374; 99285

== ENCOUNTER → 2018-02-08 | Outpatient (CLI) | payer OTHER ==
[2018-02-09 08:25] LABS: Albumin 3.3 g/dL (3.80-4.90); Albumin/Globulin Ratio 1.06 (1.20-2.10); Anion Gap 8.5 mmol/L (4.00-12.00); Calcium 8.3 mg/dL (8.7-10.3); Carbon Dioxide 22.5 mmol/L (21.6-31.8); Globulin 3.1 g/dL (2.1-3.7); Potassium 3.8 mmol/L (3.5-5.5); Total Protein 6.4 g/dL (6.2-8.2)
== END | disposition home or self-care (01) ==
LOC: LABWHC1 14:14
DX: K70.31 Alcoholic cirrhosis of liver with ascites (principal)
CPT/HCPCS: 36415; 80053

== ENCOUNTER → 2018-05-29 | Outpatient (CLI) | payer OTHER ==
[2018-05-29 11:08] LABS: HCT 33.7 % (34.0-46.0); HGB 10.5 gm/dL (11.4-16.0); Hypochromasia Moderate; MCH 28.5 pg (25.0-35.0); MCHC 31.2 g/dL (31.0-37.0); MCV 91.2 fL (80.0-100.0); Mean Platelet Volume 8.5; Platelet Count 63 k/uL (150-450); RBC 3.69 m/uL (3.80-5.40); WBC 5.4 k/uL (3.8-10.6)
[2018-05-29 17:30] LABS: Albumin 4.5 g/dL (3.80-4.90); Albumin/Globulin Ratio 1.61 (1.60-3.17); Anion Gap 8.5 mmol/L (4.00-12.00); Calcium 8.9 mg/dL (8.7-10.3); Carbon Dioxide 24.5 mmol/L (21.6-31.8); Globulin 2.8 g/dL (1.6-3.3); Potassium 4.1 mmol/L (3.5-5.5); Total Bilirubin 0.6 mg/dL (0.2-1.2); Total Protein 7.3 g/dL (6.2-8.2)
== END ==
LOC: LABWHC1 10:15
DX: K70.31 Alcoholic cirrhosis of liver with ascites (principal)
CPT/HCPCS: 36415; 80053; 85027

== ENCOUNTER → 2019-12-13 | Outpatient (CLI) | payer OTHER ==
[2019-12-13 12:42] LABS: HCT 34.7 % (34.0-46.0); HGB 10.9 gm/dL (11.4-16.0); MCH 34.6 pg (25.0-35.0); MCHC 31.5 g/dL (31.0-37.0); Macrocytosis Marked; Mean Platelet Volume 8.5; RBC 3.15 m/uL (3.80-5.40); RDW 13.4 % (11.5-15.5); WBC 5.8 k/uL (3.8-10.6)
[2019-12-13 14:02] LABS: Platelet Count 71 k/uL (150-450)
[2019-12-13 16:58] LABS: INR 1.23 (0.90-1.11); Prothrombin Time 13.1 sec (9.9-11.9)
[2019-12-13 18:55] LABS: African American GFR (CKD) 100.3 (60.0-200.0); Albumin 3.7 g/dL (3.80-4.90); Albumin/Globulin Ratio 0.97 (1.60-3.17); Anion Gap 6.5 mmol/L (4.00-12.00); BUN/Creat Ratio 12.5 Ratio (12.00-20.00); Calcium 9.3 mg/dL (8.7-10.3); Carbon Dioxide 23.5 mmol/L (21.6-31.8); Globulin 3.8 g/dL (1.6-3.3); Non-African American GFR(CKD) 86.6 (60.0-200.0); Potassium 3.9 mmol/L (3.5-5.5); Total Bilirubin 2.8 mg/dL (0.3-1.2); Total Protein 7.5 g/dL (6.2-8.2)
[2019-12-13 18:56] LABS: Alpha Fetoprotein, Tumor Mkr 11.2 ng/mL (0.0-7.9)
[2019-12-13 20:29] LABS: Hepatitis A Antibody IgM Non-Reactive (Non-Reactive); Hepatitis B Core IgM Non-Reactive (Non-Reactive); Hepatitis B Surface Antigen Non-Reactive (Non-Reactive); Hepatitis C IgG Antibody Non-Reactive (Non-Reactive)
== END | disposition home or self-care (01) ==
LOC: LABWHC1 10:36
PROVIDERS: ATTEND Physician Assistant
DX: K70.31 Alcoholic cirrhosis of liver with ascites (principal)
CPT/HCPCS: 36415; 80053; 80074; 82105; 85027; 85610

== ENCOUNTER → 2020-02-13 | Outpatient (CLI) | payer OTHER ==
--- NOTE | 2020-02-13 09:15 | US ---
EXAMINATION TYPE: US liver DATE OF EXAM: 02/13/2020 COMPARISON: NONE CLINICAL HISTORY: K70.31 Alcoholic cirrhosis of liver with ascites. EXAM MEASUREMENTS: Liver Length: 18.5 cm Gallbladder Wall: 0.2 cm CBD: 1.0 cm Right Kidney: 10.1 x 4.3 x 4.2 cm Pancreas: visualized portions wnl, head limited by overlying midline bowel gas Liver: enlarged, mildly heterogeneous, dilated portal vein with hepatopetal flow, 3.9 x 5.9 x 5.5cm isoechoic vascular area seen, possible enlarged caudate lobe vs. other Gallbladder: enlarged, multiple mobile stones, multiple polyps with largest measuring 0.5cm, wall me asures wnl Evidence for sonographic Truong's sign: no CBD: dilated Right Kidney: wnl Small amount of free fluid in RUQ IMPRESSION: 1. Hepatomegaly with heterogeneous pattern to the liver correlate for hepatocellular disease or hepat itis. Hepatic steatosis differential diagnosis. 2. There is a 5.9 cm structure isoechoic to liver along the medial margin of the liver. Potentially r elated to enlarged caudate lobe. A mass is not excluded recommend CT scan. 3. Cholelithiasis with multiple gallbladder polyps. No gallbladder wall thickening. 4. Small amount of fluid in the right upper quadrant.
== END | disposition home or self-care (01) ==
LOC: RADUSWWP 08:21
PROVIDERS: ATTEND Internal Medicine Gastroenterology
DX: R16.0 Hepatomegaly, not elsewhere classified (principal); K80.20 Calculus of gallbladder without cholecystitis without obstruction; R18.8 Other ascites; R93.2 Abnormal findings on diagnostic imaging of liver and biliary tract
CPT/HCPCS: 76705

== ENCOUNTER 2020-02-14 21:48 | Inpatient (IN) | payer OTHER ==
[2020-02-14] MEDS ORDERED: ONDANSETRON 4 MG/2 ML VIAL IVP STA (22:13)
[2020-02-14] MEDS ORDERED: SODIUM CHLORIDE 0.9% 1,000 ML IV STA ×2 (22:13→22:47)
[2020-02-14] MEDS ORDERED: OCTREOTIDE 100 MCG/ML INJ IVP STA (22:13)
[2020-02-14] MEDS ORDERED: PANTOPRAZOLE 40 MG/10 ML VIAL IVP STA (22:13)
[2020-02-14 22:36] LABS: ALT 46 U/L (4-34); AST 128 U/L (14-36); African American GFR (CKD) >90 (>60 ml/min/1.73 sqM); Albumin 4.5 g/dL (3.5-5.0); Alkaline Phosphatase 92 U/L (38-126); Anion Gap 13 mmol/L; Blood Urea Nitrogen 7 mg/dL (7-17); Calcium 8.9 mg/dL (8.4-10.2); Carbon Dioxide 24 mmol/L (22-30); Chloride 111 mmol/L (98-107); Creatine Kinase 943 U/L (30-135); Glucose 112 mg/dL (74-99); Non-African American GFR(CKD) >90 (>60 ml/min/1.73 sqM); Phosphorus 4.2 mg/dL (2.5-4.5); Potassium 4.3 mmol/L (3.5-5.1); Sodium 148 mmol/L (137-145); Total Bilirubin 3.2 mg/dL (0.2-1.3); Total Protein 8.9 g/dL (6.3-8.2)
[2020-02-14 22:47] LABS: Alcohol 459 mg/dL
--- NOTE | 2020-02-14 22:47 | ED ---
GI Bleed HPI - General Chief complaint: GI Bleed Stated complaint: vomiting blood Time Seen by Provider: 02/14/20 22:13 Source: patient, EMS, RN notes reviewed, old records reviewed Mode of arrival: EMS Limitations: no limitations - History of Present Illness Initial comments: this is a 49-year-old female DF for evaluation poor story secondary to alcohol intoxication, brought in by family for evaluation of significant blood loss and anemia, brought in by EMS who was called by familyand patient does have a significant amount of blood on the ground in the known history of alcohol abuse MD complaint: blood streaked emesis, coffee ground emesis, gross hematemesis -: unknown Radiation: none Severity scale (1-10): 10 Quality: painless Consistency: now resolved Improves with: none Worsens with: none Context: liver disease Associated Symptoms: nausea, weakness - Related Data Previous Rx's Medication Instructions Recorded Furosemide [Lasix] 40 mg PO DAILY #30 tablet 01/09/18 Spironolactone [Aldactone] 50 mg PO DAILY #30 tab 01/09/18 Allergies Allergy/AdvReac Type Severity Reaction Status Date / Time Penicillins Allergy Unknown Verified 02/14/20 22:44 Sulfa (Sulfonamide Allergy Unknown Verified 02/14/20 22:44 Antibiotics) walnut Allergy Anaphylaxis Verified 02/14/20 22:44 Review of Systems ROS Statement: Those systems with pertinent positive or pertinent negative responses have been documented in the HPI. ROS Other: All systems not noted in ROS Statement are negative. Past Medical History Past Medical History: Asthma, Liver Disease Additional Past Medical History / Comment(s): ascites,paracentesis 01-08-18 History of Any Multi-Drug Resistant Organisms: None Reported Past Surgical History: No Surgical Hx Reported Additional Past Surgical History / Comment(s): repair to spleen [place] Ruptured spleen in 1988 Past Anesthesia/Blood Transfusion Reactions: No Reported Reaction Additional Past Anesthesia/Blood Transfusion Reaction / Comment(s): pt not sure if had blood transfusion in past Past Psychological History: Anxiety, Bipolar, Depression Smoking Status: Current every day smoker Past Alcohol Use History: Daily, Heavy, Occasional Past Drug Use History: Marijuana - Past Family History Sister(s) Additional Family Medical History / Comment(s): closed head injury Mother Family Medical History: No Reported History General Exam Limitations: no limitations General appearance: alert, appears intoxicated, anxious, in distress Head exam: Present: atraumatic, normocephalic, normal inspection Eye exam: Present: normal appearance, PERRL, EOMI. Absent: scleral icterus, conjunctival injection, periorbital swelling ENT exam: Present: normal exam, mucous membranes dry Neck exam: Present: normal inspection. Absent: tenderness, meningismus, lymphadenopathy Respiratory exam: Present: normal lung sounds bilaterally. Absent: respiratory distress, wheezes, rales, rhonchi, stridor Cardiovascular Exam: Present: normal rhythm, tachycardia, normal heart sounds. Absent: systolic murmur, diastolic murmur, rubs, gallop, clicks GI/Abdominal exam: Present: soft, normal bowel sounds. Absent: distended, tend erness, guarding, rebound, rigid Extremities exam: Present: normal inspection, full ROM, normal capillary refill. Absent: tenderness, pedal edema, joint swelling, calf tenderness Back exam: Present: normal inspection Neurological exam: Present: alert, oriented X3, CN II-XII intact Psychiatric exam: Present: normal affect, normal mood Skin exam: Present: warm, dry, intact, normal color. Absent: rash Course Vital Signs 02/14/20 21:49 Temperature 98 F Pulse Rate 130 H Respiratory 18 Rate Blood Pressure 119/84 O2 Sat by Pulse 97 Oximetry - Reevaluation(s) Reevaluation #1: 02/15/20 00:42 medical records reviewed Reevaluation #2: 02/15/20 00:42 atient is without significant symptoms although she is severely intoxicated Reevaluation #3: 02/15/20 00:42 spoke with patient and family regarding findings, questions answered - Consultations Consultation #1: spoke with H were agrees to admit this patient Medical Decision Making - Medical Decision Making 9 female in severe distress with significant intoxication upper GI bleed 3 pint blood loss. Likely variceal, patient does have strokes, patient on octreotide Protonix will admit for hemodynamic support as well as GI evaluation and treatment - Lab Data Result diagrams: 02/14/20 22:16 02/14/20 22:16 Lab Results 02/14/20 02/14/20 02/14/20 Range/Units 22:16 22:16 22:16 WBC 11.3 H (3.8-10.6) k/uL RBC 2.14 L (3.80-5.40) m/uL Hgb 7.5 L D (11.4-16.0) gm/dL Hct 21.8 L (34.0-46.0) % MCV 101.6 H D (80.0-100.0) fL MCH 35.1 H (25.0-35.0) pg MCHC 34.5 (31.0-37.0) g/dL RDW 14.5 (11.5-15.5) % Plt Count 101 L (150-450) k/uL MPV 7.9 Neutrophils % 45 % Lymphocytes % 41 % Monocytes % 6 % Eosinophils % 4 % Basophils % 1 % Neutrophils # 5.1 (1.3-7.7) k/uL Lymphocytes # 4.6 (1.0-4.8) k/uL Monocytes # 0.6 (0-1.0) k/uL Eosinophils # 0.4 (0-0.7) k/uL Basophils # 0.1 (0-0.2) k/uL Macrocytosis Slight APTT 29.0 (22.0-30.0) sec Sodium 148 H (137-145) mmol/L Potassium 4.3 (3.5-5.1) mmol/L Chloride 111 H (98-107) mmol/L Carbon Dioxide 24 (22-30) mmol/L Anion Gap 13 mmol/L BUN 7 (7-17) mg/dL Creatinine 0.64 (0.52-1.04) mg/dL Est GFR (CKD-EPI)AfAm >90 (>60 ml/min/1.73 sqM) Est GFR (CKD-EPI)NonAf >90 (>60 ml/min/1.73 sqM) Glucose 112 H (74-99) mg/dL Plasma Lactic Acid Heladio (0.7-2.0) mmol/L Calcium 8.9 (8.4-10.2) mg/dL Phosphorus 4.2 (2.5-4.5) mg/dL Magnesium 2.0 (1.6-2.3) mg/dL Total Bilirubin 3.2 H (0.2-1.3) mg/dL AST 128 H (14-36) U/L ALT 46 H (4-34) U/L Alkaline Phosphatase 92 (38-126) U/L Ammonia (<30) umol/L Creatine Kinase 943 H (30-135) U/L Troponin I (0.000-0.034) ng/mL Total Protein 8.9 H (6.3-8.2) g/dL Albumin 4.5 (3.5-5.0) g/dL Lipase (23-300) U/L Serum Alcohol 459 H* mg/dL Blood Type Blood Type Confirm Blood Type Recheck Bld Type Recheck Status Antibody Screen Crossmatch Spec Expiration Date 02/14/20 02/14/20 02/14/20 Range/Units 22:16 22:16 22:16 WBC (3.8-10.6) k/uL RBC (3.80-5.40) m/uL Hgb (11.4-16.0) gm/dL Hct (34.0-46.0) % MCV (80.0-100.0) fL MCH (25.0-35.0) pg MCHC (31.0-37.0) g/dL RDW (11.5-15.5) % Plt Count (150-450) k/uL MPV Neutrophils % % Lymphocytes % % Monocytes % % Eosinophils % % Basophils % % Neutrophils # (1.3-7.7) k/uL Lymphocytes # (1.0-4.8) k/uL Monocytes # (0-1.0) k/uL Eosinophils # (0-0.7) k/uL Basophils # (0-0.2) k/uL Macrocytosis APTT (22.0-30.0) sec Sodium (137-145) mmol/L Potassium (3.5-5.1) mmol/L Chloride (98-107) mmol/L Carbon Dioxide (22-30) mmol/L Anion Gap mmol/L BUN (7-17) mg/dL Creatinine (0.52-1.04) mg/dL Est GFR (CKD-EPI)AfAm (>60 ml/min/1.73 sqM) Est GFR (CKD-EPI)NonAf (>60 ml/min/1.73 sqM) Glucose (74-99) mg/dL Plasma Lactic Acid Heladio 4.0 H* (0.7-2.0) mmol/L Calcium (8.4-10.2) mg/dL Phosphorus (2.5-4.5) mg/dL Magnesium (1.6-2.3) mg/dL Total Bilirubin (0.2-1.3) mg/dL AST (14-36) U/L ALT (4-34) U/L Alkaline Phosphatase (38-126) U/L Ammonia 19 (<30) umol/L Creatine Kinase (30-135) U/L Troponin I <0.012 (0.000-0.034) ng/mL Total Protein (6.3-8.2) g/dL Albumin (3.5-5.0) g/dL Lipase (23-300) U/L Serum Alcohol mg/dL Blood Type A Positive Blood Type Confirm Blood Type Recheck No Previous Record Bld Type Recheck Status CABO Indicated Antibody Screen NEGATIVE Crossmatch See Detail Spec Expiration Date 02/17/2020 - 231502/14/20 02/14/20 Range/Units 22:17 23:30 WBC (3.8-10.6) k/uL RBC (3.80-5.40) m/uL Hgb (11.4-16.0) gm/dL Hct (34.0-46.0) % MCV (80.0-100.0) fL MCH (25.0-35.0) pg MCHC (31.0-37.0) g/dL RDW (11.5-15.5) % Plt Count (150-450) k/uL MPV Neutrophils % % Lymphocytes % % Monocytes % % Eosinophils % % Basophils % % Neutrophils # (1.3-7.7) k/uL Lymphocytes # (1.0-4.8) k/uL Monocytes # (0-1.0) k/uL Eosinophils # (0-0.7) k/uL Basophils # (0-0.2) k/uL Macrocytosis APTT (22.0-30.0) sec Sodium (137-145) mmol/L Potassium (3.5-5.1) mmol/L Chloride (98-107) mmol/L Carbon Dioxide (22-30) mmol/L Anion Gap mmol/L BUN (7-17) mg/dL Creatinine (0.52-1.04) mg/dL Est GFR (CKD-EPI)AfAm (>60 ml/min/1.73 sqM) Est GFR (CKD-EPI)NonAf (>60 ml/min/1.73 sqM) Glucose (74-99) mg/dL Plasma Lactic Acid Heladio (0.7-2.0) mmol/L Calcium (8.4-10.2) mg/dL Phosphorus (2.5-4.5) mg/dL Magnesium (1.6-2.3) mg/dL Total Bilirubin (0.2-1.3) mg/dL AST (14-36) U/L ALT (4-34) U/L Alkaline Phosphatase (38-126) U/L Ammonia (<30) umol/L Creatine Kinase (30-135) U/L Troponin I (0.000-0.034) ng/mL Total Protein (6.3-8.2) g/dL Albumin (3.5-5.0) g/dL Lipase 398 H (23-300) U/L Serum Alcohol mg/dL Blood Type Blood Type Confirm A Positive Blood Type Recheck Bld Type Recheck Status Antibody Screen Crossmatch Spec Expiration Date Critical Care Time Critical Care Time: Yes Total Critical Care Time: 31 Disposition Clinical Impression: Elevated liver enzymes, ETOH abuse, Ascites, Gastric varices, Upper gastrointestinal hemorrhage Disposition: ADMITTED IP TO THIS [facility] Condition: Serious Is patient prescribed a controlled substance at d/c from ED?: No
[2020-02-14 22:57] LABS: Basophils # (A) 0.1 k/uL (0-0.2); Basophils % (A) 1 %; Eosinophils # (A) 0.4 k/uL (0-0.7); Eosinophils % (A) 4 %; HCT 21.8 % (34.0-46.0); Lymphocytes # (A) 4.6 k/uL (1.0-4.8); Lymphocytes % (A) 41 %; MCH 35.1 pg (25.0-35.0); MCHC 34.5 g/dL (31.0-37.0); Macrocytosis Slight; Mean Platelet Volume 7.9; Monocytes # (A) 0.6 k/uL (0-1.0); Monocytes % (A) 6 %; Neutrophils # (A) 5.1 k/uL (1.3-7.7); Neutrophils % (A) 45 %; Platelet Count 101 k/uL (150-450); RBC 2.14 m/uL (3.80-5.40); RDW 14.5 % (11.5-15.5); WBC 11.3 k/uL (3.8-10.6)
[2020-02-14 22:59] LABS: HGB 7.5 gm/dL (11.4-16.0); MCV 101.6 fL (80.0-100.0)
[2020-02-14] MEDS ORDERED: OCTREOTIDE 500 MCG in SODIUM CHLORIDE 0.9% 250 ML IV ONE (23:28)
[2020-02-14] MEDS ORDERED: ONDANSETRON 4 MG/2 ML VIAL IVP PRN (23:30)
[2020-02-14] MEDS ORDERED: THIAMINE 100 MG/ML 2 ML VIAL IM STA (23:30)
[2020-02-14] MEDS ORDERED: LORazepam 2 MG/ML INJ IV PRN ×3 (23:30)
[2020-02-14] MEDS ORDERED: NALOXONE 0.4 MG/ML 1 ML VIAL IV PRN (23:30)
--- NOTE | 2020-02-14 23:40 | CT ---
EXAMINATION TYPE: CT abdomen pelvis w con DATE OF EXAM: 02/14/2020 COMPARISON: 01/06/2018 HISTORY: vomiting bright red blood, hx of spleen repair in 1988. CT DLP: 648.9 mGycm Automated exposure control for dose reduction was used. CONTRAST: Performed with IV Contrast, patient injected with 100 mL of Isovue 300. Lung bases are clear. There is no pleural effusion. Heart size is normal. There is no pericardial eff usion. There is small hiatal hernia. Liver shows no focal defect. Spleen measures 12.5 cm. There is linear defect consistent with lacerati on of the posterior spleen unchanged. Stomach is intact. There is no pancreatic mass. The bile ducts are not dilated. There is large gallbladder with calcified gallstones. Gallbladder measures 4.8 cm in diameter. There is no adrenal mass. Kidneys show satisfactory contrast opacification. There is no hydronephrosi s. The ureters are not dilated. Delayed images show normal renal excretion. There is no retroperitone al adenopathy. Bladder distends smoothly. There is no inguinal hernia. Uterus is anteverted. There is no free fluid in the pelvis. There is large high attenuation area of density in the soft tissues in the subcutaneous tissues over the posterior left iliac bone and left lower back. This area measures up to 4 cm in thickness. This i s consistent with acute subcutaneous large hematoma. The lumbar vertebra have normal alignment. There is narrowing of L4-5 disc space with vacuum disc and spur formation. The posterior elements are intact. The bony pelvis is intact. Hip joints are intact. There is some fat stranding in the right posterior abdomen along the right psoas muscle. Appendix is not definitely seen. There is no sign of thickened appendix. There is 2 cm umbilical hernia that cont ains fat. IMPRESSION: Large area of subcutaneous bruising and hemorrhage over the posterior left side of the lower abdomen and pelvis. There is clearing of the abdominal ascites fluid compared to old exam. There is minimal fat stranding of uncertain significance on the right side along the psoas muscle. No bowel obstruction. There is i mprovement in the appearance of the liver with clearing of the patchy areas of differential density i n the liver compared to old exam. Large gallbladder with gallstones. Gallstones appear new compared to old exam.
[2020-02-15] MEDS: THIAMINE 100 MG TAB PO SCH ×3 (01:20→16:57)
[2020-02-15] MEDS: DEXTROSE 5%-0.45% NACL 1,000 ML IV SCH (01:21)
[2020-02-15] MEDS ORDERED: SODIUM CHLORIDE 0.9% 1,000 ML IV ONE (05:06)
[2020-02-15 05:08] LABS: Basophils # (A) 0.1 k/uL (0-0.2); Basophils % (A) 1 %; Eosinophils # (A) 0.2 k/uL (0-0.7); Eosinophils % (A) 3 %; HCT 34.1 % (34.0-46.0); Lymphocytes # (A) 2.1 k/uL (1.0-4.8); Lymphocytes % (A) 41 %; MCH 33.9 pg (25.0-35.0); MCHC 32.7 g/dL (31.0-37.0); MCV 103.7 fL (80.0-100.0); Macrocytosis Moderate; Mean Platelet Volume 8.4; Monocytes # (A) 0.4 k/uL (0-1.0); Monocytes % (A) 7 %; Neutrophils # (A) 2.2 k/uL (1.3-7.7); Neutrophils % (A) 44 %; RBC 3.29 m/uL (3.80-5.40); RDW 15.8 % (11.5-15.5); WBC 5.1 k/uL (3.8-10.6)
[2020-02-15 05:16] LABS: HGB 11.1 gm/dL (11.4-16.0)
[2020-02-15 05:33] LABS: Platelet Count 48 k/uL (150-450)
[2020-02-15] MEDS: PANTOPRAZOLE 40 MG/10 ML VIAL IV SCH ×2 (09:48→22:56)
[2020-02-15] MEDS: OCTREOTIDE 100 MCG/ML INJ IVP SCH ×3 (09:49→23:43)
[2020-02-15 10:20] LABS: INR 1.4 (<1.2); Prothrombin Time 13.8 sec (9.0-12.0)
--- NOTE | 2020-02-15 15:09 | CONS ---
CONSULTATION DATE OF SERVICE: 02/15/2020 REQUESTING PHYSICIAN: Dr. Carballo. REASON FOR CONSULTATION: Acute upper gastrointestinal bleed. HISTORY OF PRESENT ILLNESS: The patient is a 49-year-old pleasant white female with history of alcoholic cirrhosis of the liver, diagnosed 2 years ago with active alcohol abuse, admitted to the hospital with 3 episodes of hematemesis. She denies any abdominal pain, reports no nausea. No fever, chills, night sweats. Never had these symptoms in the past. No prior history of EGD. She denies any recent NSAID use. In the ER, she was noted to have a hemoglobin of 7.1 g/dL and she received a unit of PRBC transfusion and repeat hemoglobin was 11.1 g/dL. She never had these symptoms in the past. She did have a CT of the abdomen and pelvis done in the ER that showed a large area of subcutaneous bruising and hemorrhage over the posterior left side of the lower abdomen and large gallbladder with gallstones. PAST MEDICAL HISTORY: Significant for alcoholic cirrhosis of the liver diagnosed 2 years ago, history of alcohol abuse, ascites in the past, status post paracentesis x2. MEDICATIONS: At home include Lasix 40 mg daily and Aldactone 50 mg daily. ALLERGIES: To PENICILLIN, SULFA. SOCIAL HISTORY: Chronic smoker, heavy alcohol abuse for the last 5 years. She drinks about a pint a day. FAMILY HISTORY: Sister closed-head injury. Mother unremarkable. REVIEW OF SYSTEMS: CARDIOPULMONARY: She denies any chest pain or shortness of breath. : No dysuria or hematuria. MUSCULOSKELETAL: Unremarkable. SKIN: Unremarkable. ENDOCRINE: Unremarkable. PSYCHIATRIC: Unremarkable. NEUROLOGY: Unremarkable. ENT/VISION: Unremarkable. CONSTITUTIONAL: No recent weight loss. No fever, chills, night sweats. PHYSICAL EXAMINATION: She appears comfortable. No apparent distress. Vital signs are stable. Blood pressure is 85/59, pulse rate 108, temperature 98.7. HEENT: Examination unremarkable, conjunctivae are pink, sclerae nonicteric, oral cavity no lesions. NECK: No JVD or lymph node enlargement. CHEST: Clear to auscultation. HEART: Regular rate and rhythm. ABDOMEN: Soft, bowel sounds are positive, no organomegaly. EXTREMITIES: No pedal edema. SKIN: No rashes. NEURO She is alert and oriented x3. No focal deficits. LABS: From yesterday, WBC 11.3, hemoglobin 7.5, platelets 101. INR 1.4. BUN 7, creatinine 0.64. Lactic acid is 4. T bilirubin 3.2, AST 128, ALT 46, alkaline phosphatase 192. Serum alcohol level 459. Lipase is 398. IMPRESSION: 1. Acute upper gastrointestinal bleed. The patient presented with 3 episodes of hematemesis yesterday. Rule out esophageal variceal bleeding or other upper GI causes of bleeding. 2. Severe symptomatic anemia with a hemoglobin of 7.1 g/dL status post one unit of PRBC transfusion. Repeat hemoglobin is 11.1. 3. Elevated LFTs and jaundice all consistent with alcoholic hepatitis and underlying alcoholic cirrhosis of the liver. 4. Mild coagulopathy and thrombocytopenia secondary to chronic liver disease. RECOMMENDATIONS: 1. Continue with Protonix 40 mg twice daily. 2. CBC on a daily basis. 3. Patient already started on octreotide, which can be continued. 4. Scheduled for an upper endoscopy tomorrow. Discussed with the patient risks, benefits and complications and he is agreeable to it. Thank you for this consultation. MMEDL / IJN: [id number] /
--- NOTE | 2020-02-15 15:41 | P.HPIM ---
History of Present Illness H&P Date: 02/15/20 Chief Complaint: Vomiting blood Patient is a 49-year-old male with a known history of asthma, alcoholic liver disease, daily alcohol use and nicotine addiction as well as marijuana use, anxiety/depression/bipolar disorder and also history of paracentesis in December 2017 came to ER with the complaints of vomiting of blood. Patient says that she was having nausea and vomiting and bright red blood in the vomitus noted. Patient was all call intoxicated on admission was brought in by family due to significant blood in the vomiting. Patient otherwise denied any chest pain or shortness of breath. No significant abdominal pain or diarrhea. No dizziness or lightheadedness. CT of the abdomen pelvis in the ER showed large area of subcutaneous bruising and hemorrhage over the posterior left side of the lower abdomen and pelvis. There is clearing of the abdomen ascites fluid compatible exam. Large gallbladder with gallstones. Nostrils appears new compared to old exam. No bowel obstruction. Improvement in the appearance of the liver with clearing of the patchy areas of differential density in the liver compatible exam. Laboratory data showed no recent lung 0.3, hemoglobin 7.5, RDW 14.5 and platelets 101 Sodium 148, potassium 4.3, chloride 111 Lactic acid 4.0 next line bilirubin 3.2, AST 128, ALT 46, INR 1.4 Serum alcohol 459 on admission Review of Systems Constitutional: Patient denies any fever or chills . No generalized weakness or weight loss. Abdomen: Patient does have nausea vomiting and epigastric abdominal pain. No diarrhea. Cardiovascular: Patient denies any chest pain or short of breath no pa lpitations. Respiratory: patient denied any cough is from production. No shortness of breath Neurologic: Patient denied any numbness or tingling headache. Musculoskeletal: Patient denies any complaints of joint swelling or deformity. Skin: Negative Psychiatric: Negative Endocrine: No heat or cold intolerance. No recent weight gain. Genitourinary: No dysuria or hematuria. All other 14 point ROS negative except the above Past Medical History Past Medical History: Asthma, Liver Disease Additional Past Medical History / Comment(s): ascites,paracentesis 01-08-18 History of Any Multi-Drug Resistant Organisms: None Reported Past Surgical History: No Surgical Hx Reported Additional Past Surgical History / Comment(s): repair to spleen [place] Ruptured spleen in 1988 Past Anesthesia/Blood Transfusion Reactions: No Reported Reaction Additional Past Anesthesia/Blood Transfusion Reaction / Comment(s): pt not sure if had blood transfusion in past Past Psychological History: Anxiety, Bipolar, Depression Smoking Status: Current every day smoker Past Alcohol Use History: Daily, Heavy, Occasional Additional Past Alcohol Use History / Comment(s): Patient states she will buy a pint of vodka that lasts her 2-3 days,pt stated "was drinking 1 liter of wine per day, but no alcholol in approx 1 mos (Dec 2017)" Past Drug Use History: Marijuana Additional Drug Use History / Comment(s): Previous marijuana use; Smokes a pack a day of cigarettes - Past Family History Sister(s) Additional Family Medical History / Comment(s): closed head injury Mother Family Medical History: No Reported History Medications and Allergies Home Medications Medication Instructions Recorded Confirmed Type Furosemide [Lasix] 40 mg PO DAILY #30 tablet 01/09/18 02/14/20 Rx Spironolactone [Aldactone] 50 mg PO DAILY #30 tab 01/09/18 02/14/20 Rx Allergies Allergy/AdvReac Type Severity Reaction Status Date / Time Penicillins Allergy Unknown Verified 02/14/20 22:44 Sulfa (Sulfonamide Allergy Unknown Verified 02/14/20 22:44 Antibiotics) walnut Allergy Anaphylaxis Verified 02/14/20 22:44 Physical Exam Vitals: Vital Signs Temp Pulse Pulse Resp BP BP Pulse Ox 02/15/20 09:50 103 H 99/69 02/15/20 07:41 98.7 F 102 H 16 94/61 94 L 02/15/20 07:40 102 H 16 02/15/20 05:41 85 18 110/75 98 02/15/20 03:29 98.2 F 95 18 88/64 96 02/15/20 01:52 98 F 98 18 87/54 97 02/15/20 01:22 98.1 F 108 H 20 90/68 98 02/15/20 01:10 98 F 107 H 20 105/64 95 02/15/20 00:55 98.3 F 122 H 20 114/82 96 02/14/20 21:49 98 F 130 H 18 119/84 97 Intake and Output 02/14/20 02/15/20 02/15/20 22:59 06:59 14:59 Intake Total 310 Balance 310 Intake: Blood Product 310 Rc As-1 Unit 310 [id number] Other: Weight 57.153 kg 57.153 kg PHYSICAL EXAMINATION: Patient is lying in the bed comfortably, no acute distress, awake alert and oriented. Anxious.. HEENT: Normocephalic. Neck is supple. Pupils reactive. Nostrils clear. Oral cavity is moist. Ears reveal no drainage. Neck reveals no JVD, carotid bruits, or thyromegaly. CHEST EXAMINATION: Trachea is central. Symmetrical expansion. Lung martins clear to auscultation and percussion. CARDIAC: Normal S1, S2 with no gallops. No murmurs ABDOMEN: Soft. Bowel sounds normal. No organomegaly. No abdominal bruits. Extremities: reveal no edema. No clubbing or cyanosis Neurologically awake, alert, oriented x3 with well-coordinated movements. No focal deficits noted Skin: No rash or skin lesions. Psychiatric: Coperative. Nonsuicidal Musculoskeletal: No joint swelling or deformity. Normal range of motion. Results CBC & Chem 7: 02/15/20 04:07 02/14/20 22:16 Labs: Abnormal Lab Results - Last 24 Hours (Table) 02/14/20 02/14/20 02/14/20 Range/Units 22:16 22:16 22:16 WBC 11.3 H (3.8-10.6) k/uL RBC 2.14 L (3.80-5.40) m/uL Hgb 7.5 L D (11.4-16.0) gm/dL Hct 21.8 L (34.0-46.0) % MCV 101.6 H D (80.0-100.0) fL MCH 35.1 H (25.0-35.0) pg RDW (11.5-15.5) % Plt Count 101 L (150-450) k/uL PT (9.0-12.0) sec INR (<1.2) Sodium 148 H (137-145) mmol/L Chloride 111 H (98-107) mmol/L Glucose 112 H (74-99) mg/dL Plasma Lactic Acid Heladio 4.0 H* (0.7-2.0) mmol/L Total Bilirubin 3.2 H (0.2-1.3) mg/dL AST 128 H (14-36) U/L ALT 46 H (4-34) U/L Creatine Kinase 943 H (30-135) U/L Total Protein 8.9 H (6.3-8.2) g/dL Lipase (23-300) U/L Serum Alcohol 459 H* mg/dL Crossmatch 02/14/20 02/14/20 02/15/20 Range/Units 22:16 23:30 01:09 WBC (3.8-10.6) k/uL RBC (3.80-5.40) m/uL Hgb (11.4-16.0) gm/dL Hct (34.0-46.0) % MCV (80.0-100.0) fL MCH (25.0-35.0) pg RDW (11.5-15.5) % Plt Count (150-450) k/uL PT (9.0-12.0) sec INR (<1.2) Sodium (137-145) mmol/L Chloride (98-107) mmol/L Glucose (74-99) mg/dL Plasma Lactic Acid Heladio 3.5 H* (0.7-2.0) mmol/L Total Bilirubin (0.2-1.3) mg/dL AST (14-36) U/L ALT (4-34) U/L Creatine Kinase (30-135) U/L Total Protein (6.3-8.2) g/dL Lipase 398 H (23-300) U/L Serum Alcohol mg/dL Crossmatch See Detail 02/15/20 02/15/20 02/15/20 Range/Units 04:07 04:07 07:00 WBC (3.8-10.6) k/uL RBC 3.29 L (3.80-5.40) m/uL Hgb 11.1 L D (11.4-16.0) gm/dL Hct (34.0-46.0) % MCV 103.7 H (80.0-100.0) fL MCH (25.0-35.0) pg RDW 15.8 H (11.5-15.5) % Plt Count 48 L D (150-450) k/uL PT (9.0-12.0) sec INR (<1.2) Sodium (137-145) mmol/L Chloride (98-107) mmol/L Glucose (74-99) mg/dL Plasma Lactic Acid Heladio 3.2 H* 2.8 H* (0.7-2.0) mmol/L Total Bilirubin (0.2-1.3) mg/dL AST (14-36) U/L ALT (4-34) U/L Creatine Kinase (30-135) U/L Total Protein (6.3-8.2) g/dL Lipase (23-300) U/L Serum Alcohol mg/dL Crossmatch 02/15/20 Range/Units 08:52 WBC (3.8-10.6) k/uL RBC (3.80-5.40) m/uL Hgb (11.4-16.0) gm/dL Hct (34.0-46.0) % MCV (80.0-100.0) fL MCH (25.0-35.0) pg RDW (11.5-15.5) % Plt Count (150-450) k/uL PT 13.8 H (9.0-12.0) sec INR 1.4 H (<1.2) Sodium (137-145) mmol/L Chloride (98-107) mmol/L Glucose (74-99) mg/dL Plasma Lactic Acid Heladio (0.7-2.0) mmol/L Total Bilirubin (0.2-1.3) mg/dL AST (14-36) U/L ALT (4-34) U/L Creatine Kinase (30-135) U/L Total Protein (6.3-8.2) g/dL Lipase (23-300) U/L Serum Alcohol mg/dL Crossmatch Thrombosis Risk Factor Assmnt - DVT/VTE Prophylaxis DVT/VTE Prophylaxis: Mechanical Prophylaxis ordered - Choose All That Apply Each Factor Represents 1 point: Age 41-60 years Other Risk Factors: No Other congenital or acquired thrombophilia - If yes, enter type in comment: No Thrombosis Risk Factor Assessment Total Risk Factor Score: 1 Thrombosis Risk Factor Assessment Level: Low Risk Assessment and Plan Assessment: Hematemesis secondary to Acute GI bleed with hemoglobin 7.5 on admission Acute blood loss anemia and symptomatic anemia Hyponatremia Lactic acidosis Acute alcohol intoxication on admission Alcoholic hepatitis with coagulopathy Mild acute pancreatitis Severe alcohol abuse Ongoing nicotine addiction Marijuana use next and DVT provided with SCDs Plan: Patient will be continued on PPI IV twice a day and IV hydration and symptomatic management for nausea and vomiting. Monitor H&H and transfuse as needed. Gastroenterology was consulted and is planning for EGD tomorrow. Monitor for alcohol withdrawal symptoms and follow up closely. Further conditions based on the clinical course. Time with Patient: Greater than 30
[2020-02-15] MEDS: NICOTINE 21MG/24HR PATCH TRANSDERM SCH (16:57)
[2020-02-15 23:02] LABS: African American GFR (CKD) >90 (>60 ml/min/1.73 sqM); Anion Gap 6 mmol/L; Blood Urea Nitrogen 6 mg/dL (7-17); Calcium 8.8 mg/dL (8.4-10.2); Carbon Dioxide 26 mmol/L (22-30); Chloride 105 mmol/L (98-107); Glucose 128 mg/dL (74-99); Non-African American GFR(CKD) >90 (>60 ml/min/1.73 sqM); Potassium 3.8 mmol/L (3.5-5.1); Sodium 137 mmol/L (137-145)
[2020-02-16] MEDS: DEXTROSE 5%-0.45% NACL 1,000 ML IV SCH ×2 (03:48→18:21)
[2020-02-16] MEDS: PANTOPRAZOLE 40 MG/10 ML VIAL IV SCH ×2 (09:19→20:00)
[2020-02-16] MEDS: NICOTINE 21MG/24HR PATCH TRANSDERM SCH (09:19)
[2020-02-16] MEDS: OCTREOTIDE 100 MCG/ML INJ IVP SCH ×3 (09:20→22:56)
[2020-02-16 10:07] LABS: HCT 30.1 % (34.0-46.0); HGB 10.2 gm/dL (11.4-16.0); MCHC 33.8 g/dL (31.0-37.0); MCV 100.7 fL (80.0-100.0); Macrocytosis Slight; Mean Platelet Volume 8.8; RBC 2.99 m/uL (3.80-5.40); RDW 15.4 % (11.5-15.5); WBC 2.4 k/uL (3.8-10.6)
[2020-02-16 10:22] LABS: ALT 36 U/L (4-34); AST 95 U/L (14-36); African American GFR (CKD) >90 (>60 ml/min/1.73 sqM); Albumin 3.4 g/dL (3.5-5.0); Alkaline Phosphatase 72 U/L (38-126); Anion Gap 4 mmol/L; Blood Urea Nitrogen 7 mg/dL (7-17); Calcium 8.8 mg/dL (8.4-10.2); Carbon Dioxide 26 mmol/L (22-30); Chloride 108 mmol/L (98-107); Glucose 123 mg/dL (74-99); Non-African American GFR(CKD) >90 (>60 ml/min/1.73 sqM); Potassium 3.9 mmol/L (3.5-5.1); Sodium 138 mmol/L (137-145); Total Bilirubin 5.4 mg/dL (0.2-1.3); Total Protein 6.9 g/dL (6.3-8.2)
[2020-02-16 10:24] LABS: Platelet Count 30 k/uL (150-450)
[2020-02-16 10:32] LABS: INR 1.5 (<1.2); Prothrombin Time 14.5 sec (9.0-12.0)
[2020-02-16] MEDS ORDERED: LIDOCAINE 1% INJ 10MG/ML (20 ML MDV) ONE (12:09)
[2020-02-16] MEDS ORDERED: PROPOFOL 10 MG/ML 20 ML VIAL IV ONE (12:09)
[2020-02-16] MEDS ORDERED: IV FLUID CONTINUATION 1,000 ML IV ONE ×2 (12:10)
--- NOTE | 2020-02-16 12:27 | P.PCN ---
Date of Procedure: 02/16/20 Procedure(s) Performed: BRIEF HISTORY: Patient is a 49-year-old, pleasant, white female scheduled for an upper endoscopy as a part of evaluation of acute upper GI bleed. She had 3 episodes of hematemesis.. Hemoglobin was 7.5 units of blood transfusion. History of heavy alcoholism/cirrhosis of the liver diagnosed 2 years ago PROCEDURE PERFORMED: Esophagogastroduodenoscopy with esophageal variceal ligation. PREOPERATIVE DIAGNOSIS: acute Upper GI bleed. IV sedation per anesthesia. PROCEDURE: After informed consent was obtained, the patient was brought into the endoscopy unit. IV sedation was administered by Anesthesia under continuous monitoring. Initially the Olympus GIF-140 video endoscope was inserted into the mouth. Esophagus intubated without any difficulty. It was gradually advanced into the stomach and duodenum and carefully examined. The bulb and the second part of the duodenum appeared normal. The scope at this time was withdrawn to the stomach, adequately insufflated with air, and upon careful examination, mucosa of the antrum were normal. There was moderate to severe portal hypertensive gastropathy involving the, body, cardia and the fundus .. The scope was then withdrawn into the esophagus. The GE junction was located at 39 cm from the incisors. There were large esophageal varices noted in the mid and distal esophagus. At this time the scope was withdrawn. The esophageal variceal ligation equipment was introduced into the tip of the scope and esophagus reintubated without any difficulty. It was gradually advanced into the distal esophagus. Variceal ligation was performed mid and distal esophageal varices and total of of 7 bands were deployed. The rest of the esophagus appeared normal. There were no erosions or ulcerations seen and the patient tolerated the procedure well. IMPRESSION: 1..Large mid/distal esophageal varices with no active bleeding status post variceal ligation as described above 2. Moderate severe portal hypertensive gastropathy. RECOMMENDATIONS: The findings of this examination were discussed with the patient. She will be continued on Sandostatin. Continue clear Liquid Diet and Advance As Tolerated.. monitor CBC daily
[2020-02-16] MEDS: MORPHINE SULFATE 2 MG/ML SYRINGE IVP PRN ×2 (15:42→21:49)
[2020-02-16] MEDS: ACETAMINOPHEN TAB 325 MG TAB PO PRN ×2 (15:46→21:51)
[2020-02-16] MEDS: THIAMINE 100 MG TAB PO SCH ×2 (15:47→18:17)
[2020-02-17] MEDS: MORPHINE SULFATE 2 MG/ML SYRINGE IVP PRN ×2 (04:18→10:48)
[2020-02-17] MEDS: ACETAMINOPHEN TAB 325 MG TAB PO PRN (04:19)
[2020-02-17 04:22] VITALS: RESP 18
[2020-02-17 07:13] LABS: HCT 29.9 % (34.0-46.0); HGB 10.4 gm/dL (11.4-16.0); MCH 34.8 pg (25.0-35.0); MCHC 34.7 g/dL (31.0-37.0); MCV 100.2 fL (80.0-100.0); Macrocytosis Slight; Mean Platelet Volume 8.9; RBC 2.98 m/uL (3.80-5.40); RDW 15.3 % (11.5-15.5); WBC 2.6 k/uL (3.8-10.6)
[2020-02-17 07:26] LABS: Platelet Count 30 k/uL (150-450)
[2020-02-17 07:34] LABS: ALT 31 U/L (4-34); AST 79 U/L (14-36); African American GFR (CKD) >90 (>60 ml/min/1.73 sqM); Albumin 3.3 g/dL (3.5-5.0); Alkaline Phosphatase 65 U/L (38-126); Anion Gap 6 mmol/L; Blood Urea Nitrogen 9 mg/dL (7-17); Calcium 8.5 mg/dL (8.4-10.2); Carbon Dioxide 24 mmol/L (22-30); Chloride 107 mmol/L (98-107); Glucose 127 mg/dL (74-99); Non-African American GFR(CKD) >90 (>60 ml/min/1.73 sqM); Potassium 3.5 mmol/L (3.5-5.1); Sodium 137 mmol/L (137-145); Total Bilirubin 5.2 mg/dL (0.2-1.3); Total Protein 6.7 g/dL (6.3-8.2)
[2020-02-17] MEDS: THIAMINE 100 MG TAB PO SCH (09:42)
[2020-02-17] MEDS: NICOTINE 21MG/24HR PATCH TRANSDERM SCH (09:42)
[2020-02-17] MEDS: PANTOPRAZOLE 40 MG/10 ML VIAL IV SCH (09:42)
[2020-02-17] MEDS: OCTREOTIDE 100 MCG/ML INJ IVP SCH (10:41)
--- NOTE | 2020-02-17 10:48 | P.PN ---
Subjective Progress Note Date: 02/16/20 Patient is a 49-year-old male with a known history of asthma, alcoholic liver disease, daily alcohol use and nicotine addiction as well as marijuana use, anxiety/depression/bipolar disorder and also history of paracentesis in December 2017 came to ER with the complaints of vomiting of blood. Patient says that she was having nausea and vomiting and bright red blood in the vomitus noted. Patient was all call intoxicated on admission was brought in by family due to significant blood in the vomiting. Patient otherwise denied any chest pain or shortness of breath. No significant abdominal pain or diarrhea. No dizziness or lightheadedness. CT of the abdomen pelvis in the ER showed large area of subcutaneous bruising and hemorrhage over the posterior left side of the lower abdomen and pelvis. There is clearing of the abdomen ascites fluid compatible exam. Large gallbladder with gallstones. Nostrils appears new compared to old exam. No bowel obstruction. Improvement in the appearance of the liver with clearing of the patchy areas of differential density in the liver compatible exam. Laboratory data showed no recent lung 0.3, hemoglobin 7.5, RDW 14.5 and platelets 101 Sodium 148, potassium 4.3, chloride 111 Lactic acid 4.0 next line bilirubin 3.2, AST 128, ALT 46, INR 1.4 Serum alcohol 459 on admission 02/16/2020 Patient is currently awake and oriented. Status post EGD showed 1..Large mid/distal esophageal varices with no active bleeding status post variceal ligation as described above 2. Moderate severe portal hypertensive gastropathy. She will be continued on Sandostatin. Continue clear Liquid Diet and Advance As Tolerated.. monitor CBC daily. GI is following. Laboratory data showed WBC 2.4, hemoglobin 10.2, INR 1.5 BUE and 7) 0.69 AST 95, ALT 36 and alk phos 72 and albumin 3.4 current medications reviewed. Objective - Vital Signs Vital signs: Vital Signs Temp 98.6 F 02/16/20 11:48 Pulse 93 02/16/20 11:48 Resp 18 02/16/20 11:48 BP 109/66 02/16/20 11:48 Pulse Ox 98 02/16/20 11:48 Intake & Output 02/15/20 02/16/20 02/16/20 18:59 06:59 18:59 Intake Total 200 Output Total 150 Balance 50 Weight 58.6 kg Intake: IV 200 Oral 0 Output: Urine 150 Other: Voiding Method Toilet # Voids 2 - Exam PHYSICAL EXAMINATION: Patient is lying in the bed comfortably, no acute distress, awake alert and oriented. Anxious.. HEENT: Normocephalic. Neck is supple. Pupils reactive. Nostrils clear. Oral cavity is moist. Ears reveal no drainage. Neck reveals no JVD, carotid bruits, or thyromegaly. CHEST EXAMINATION: Trachea is central. Symmetrical expansion. Lung martins clear to auscultation and percussion. CARDIAC: Normal S1, S2 with no gallops. No murmurs ABDOMEN: Soft. Bowel sounds normal. No organomegaly. No abdominal bruits. Extremities: reveal no edema. No clubbing or cyanosis Neurologically awake, alert, oriented x3 with well-coordinated movements. No focal deficits noted Skin: No rash or skin lesions. Psychiatric: Coperative. Nonsuicidal Musculoskeletal: No joint swelling or deformity. Normal range of motion. - Labs CBC & Chem 7: 02/17/20 06:30 02/17/20 06:30 Labs: Abnormal Lab Results - Last 24 Hours (Table) 02/15/20 02/15/20 02/16/20 Range/Units 22:27 22:27 08:20 WBC 2.4 L (3.8-10.6) k/uL RBC 2.99 L (3.80-5.40) m/uL Hgb 10.2 L (11.4-16.0) gm/dL Hct 30.1 L (34.0-46.0) % MCV 100.7 H (80.0-100.0) fL Plt Count 30 L (150-450) k/uL PT (9.0-12.0) sec INR (<1.2) Chloride (98-107) mmol/L BUN 6 L (7-17) mg/dL Glucose 128 H (74-99) mg/dL Plasma Lactic Acid Heladio 2.6 H* (0.7-2.0) mmol/L Total Bilirubin (0.2-1.3) mg/dL AST (14-36) U/L ALT (4-34) U/L Albumin (3.5-5.0) g/dL 02/16/20 02/16/20 Range/Units 08:20 08:20 WBC (3.8-10.6) k/uL RBC (3.80-5.40) m/uL Hgb (11.4-16.0) gm/dL Hct (34.0-46.0) % MCV (80.0-100.0) fL Plt Count (150-450) k/uL PT 14.5 H (9.0-12.0) sec INR 1.5 H (<1.2) Chloride 108 H (98-107) mmol/L BUN (7-17) mg/dL Glucose 123 H (74-99) mg/dL Plasma Lactic Acid Heladio (0.7-2.0) mmol/L Total Bilirubin 5.4 H (0.2-1.3) mg/dL AST 95 H (14-36) U/L ALT 36 H (4-34) U/L Albumin 3.4 L (3.5-5.0) g/dL Assessment and Plan Assessment: Hematemesis secondary to Acute GI bleed with hemoglobin 7.5 on admission. Status post EGD. Acute blood loss anemia and symptomatic anemia Hyponatremia Lactic acidosis Acute alcohol intoxication on admission Alcoholic hepatitis with coagulopathy Mild acute pancreatitis Severe alcohol abuse Ongoing nicotine addiction Marijuana use next and DVT provided with SCDs Plan: Patient will be continued on PPI IV twice a day and IV hydration and symptomatic management for nausea and vomiting. Continue with somatostatin. Monitor H&H and transfuse as needed. Gastroenterology is following. Status post EGD.. Monitor for alcohol withdrawal symptoms and follow up closely. Further conditions based on the clinical course. Time with Patient: Greater than 30
--- NOTE | 2020-02-17 11:20 | P.PN ---
Subjective Progress Note Date: 02/17/20 Principal diagnosis: Acute upper gastrointestinal bleed This is a 49-year-old pleasant white female patient with a history of alcoholic cirrhosis of the liver diagnosed 2 years ago with active alcohol abuse who was admitted to the hospital with 3 episodes of hematemesis. She underwent an upper endoscopy yesterday which revealed a large mid/Distal esophageal varices with no active bleeding status post variceal ligation, also with moderate severe portal hypertensive gastropathy. She is seen and examined today at the bedside sitting up. She states she is tolerating a regular diet. She denies any abdominal pain, nausea, or vomiting. She has not had any further evidence of GI bleed. Today's of UVC 2.6, hemoglobin is stable at 10.4, platelets are 30,000 amount bilirubin 5.2, alkaline phosphatase 65, AST 79, ALT 31. Objective - Vital Signs Vital signs: Vital Signs Temp 97.7 F 02/17/20 04:21 Pulse 81 02/17/20 04:21 Resp 18 02/17/20 04:21 BP 101/67 02/17/20 04:21 Pulse Ox 99 02/17/20 04:21 Intake & Output 02/16/20 02/17/20 02/17/20 18:59 06:59 18:59 Intake Total 740 240 240 Output Total 150 Balance 590 240 240 Intake: IV 200 Oral 540 240 240 Output: Urine 150 Other: Voiding Method Toilet # Voids 2 1 - Exam General appearance: The patient is alert, oriented, in no acute distress. HET: Head is normocephalic and atraumatic. Conjunctiva pink. Sclera icteric. Neck: Supple without lymphadenopathy. Abdomen: Soft, nontender, nondistended with bowel sounds. No guarding or rigidity. Integumentary: No rashes noted, jaundice. Extremities: Normal skin color and turgor. No pedal edema Neurological: No focal deficits. Alert and oriented 3. - Labs CBC & Chem 7: 02/17/20 06:30 02/17/20 06:30 Labs: Abnormal Lab Results - Last 24 Hours (Table) 02/16/20 02/17/20 02/17/20 Range/Units 08:20 06:30 06:30 WBC 2.6 L (3.8-10.6) k/uL RBC 2.98 L (3.80-5.40) m/uL Hgb 10.4 L (11.4-16.0) gm/dL Hct 29.9 L (34.0-46.0) % MCV 100.2 H (80.0-100.0) fL Plt Count 30 L 30 L (150-450) k/uL Glucose 127 H (74-99) mg/dL Total Bilirubin 5.2 H (0.2-1.3) mg/dL AST 79 H (14-36) U/L Albumin 3.3 L (3.5-5.0) g/dL Assessment and Plan Assessment: 1. Acute upper gastrointestinal bleed. The patient presented with 3 episodes of hematemesis prior to admission. She is status post upper endoscopy which revealed large mid/distal esophageal varices with no active bleeding status post variceal ligation and moderate severe portal hypertensive gastropathy. 2. Severe symptomatic anemia with hemoglobin of 7.1 g/dL it is post 1 unit of packed red blood cell transfusion. Hemoglobin remained stable at 10.4. With no further signs of bleeding 3. Elevated LFTs and jaundice all consistent with alcoholic hepatitis and underlying alcoholic cirrhosis of the liver. 4. Mild coagulopathy and thrombocytopenia secondary to chronic liver disease. Plan: 1. Continue Protonix 40 mg twice daily 2. Advance diet as tolerated 3. CBC on a daily basis 4. Discontinue octreotide 5. Status post upper endoscopy findings as above 6. Will discharge home on Inderal 10 mg TID, script sent 6. Close follow-up with Marcella Leal in 2 weeks after discharge The impression and plan of care has been dictated as directed. Dr. Liv Alcantar I performed a history and examination of this patient, discussed the same with the dictator. I agree with the dictator's note ,documented as a scribe. Any additional findings or plans will be noted.
[2020-02-17 13:37] VITALS: BP 94/61; PULSE 77; TEMP 98
--- NOTE | 2020-02-17 15:38 | P.DS ---
Providers Date of admission: 02/15/20 00:00 Expected date of discharge: 02/17/20 Attending physician: Roger Carballo Consults: 02/14/20 23:31 Consult Physician Routine Consulting Provider: Juliana Alcantar Consult Reason/Comments: gib Do you want consulting provider notified?: Yes Primary care physician: Stated None Hospital Course: Final diagnosis Hematemesis secondary to Acute GI bleed with hemoglobin 7.5 on admission. Status post EGD. Acute blood loss anemia and symptomatic anemia Hyponatremia Lactic acidosis Acute alcohol intoxication on admission Alcoholic hepatitis with coagulopathy Mild acute pancreatitis Severe alcohol abuse Ongoing nicotine addiction Marijuana use DVT prophylaxis Discharge disposition Patient is being discharged in a stable condition with guarded prognosis to home. Patient will follow-up with primary care provider upon discharge. Patient will also follow-up with GI in the outpatient setting in 1-2 weeks. Patient will continue Protonix 40 milligrams twice daily until GI follow-up. Total time taken is 35 minutes. History of present illness This is an 49-year-old female who was recently admitted with vomiting blood along with nausea and vomiting and was being closely monitored. Patient's hemoglobin on admission was found to be 7.5 and received a unit of blood. Patient was seen and evaluated by GI and underwent an EGD showing large mid distal esophageal varices status post variceal ligation and moderate to severe portal hypertensive gastropathy. Patient was maintained on Sandostatin. Current hemoglobin today is 10.4. Patient was initiated on a clear liquid diet and tolerated and was advanced per GI recommendations. Patient will continue on Protonix 40 mg twice daily in the outpatient setting until GI follow-up. Patien t to follow-up with nurse practitioner Marcella and Dr. Alcantar's office in 1-2 weeks. Patient also instructed to avoid alcohol. Patient did verbalize understanding. Patient was maintained on CIWA protocol and not requiring any Ativan and patient is not actively withdrawing at this time. Patient states she has a little discomfort in the esophageal area which is expected of the procedure. Patient states she is feeling much better overall and would like to go home today. Currently no reports of chest pain, shortness of breath, or palpitations. Patient is afebrile. Guarded prognosis. On exam vital signs are stable. Temp is 98.0F, pulse is 77, respirations are 18, blood pressure is 94/61, oxygen saturation is 98 % on room air. Cardio S1, S2 are muffled. Respiratory shows diminished breath sounds at the bases no wheezing or rhonchi noted. Abdomen is soft and nontender. Nervous system shows no focal deficits. Please refer to medication reconciliation sheet for a list of medications. Patient Condition at Discharge: Stable Plan - Discharge Summary Discharge Rx Participant: No New Discharge Prescriptions: New Pantoprazole Sodium [Protonix] 40 mg PO BID 30 Days #60 tablet. Acetaminophen Tab [Tylenol] 650 mg PO Q6HR PRN #30 tab PRN Reason: Fever And/ Or Pain Thiamine [Vitamin B-1] 100 mg PO BID-W/MEALS 30 Days #60 tab Propranolol [Inderal] 10 mg PO TID 30 Days #90 tab Continue Furosemide [Lasix] 40 mg PO DAILY #30 tablet Spironolactone [Aldactone] 50 mg PO DAILY #30 tab Discharge Medication List Furosemide [Lasix] 40 mg PO DAILY #30 tablet 01/09/18 [Rx] Spironolactone [Aldactone] 50 mg PO DAILY #30 tab 01/09/18 [Rx] Acetaminophen Tab [Tylenol] 650 mg PO Q6HR PRN #30 tab 02/17/20 [Rx] Pantoprazole Sodium [Protonix] 40 mg PO BID 30 Days #60 tablet. 02/17/20 [Rx] Propranolol [Inderal] 10 mg PO TID 30 Days #90 tab 02/17/20 [Rx] Thiamine [Vitamin B-1] 100 mg PO BID-W/MEALS 30 Days #60 tab 02/17/20 [Rx] Follow up Appointment(s)/Referral(s): Marcella Leal PAC [REFERRING] - 2 Weeks (Patient request to make own appointments) Patient Instructions/Handouts: Gastrointestinal Bleeding (DC), Esophageal Varices (DC), Esophageal Banding (DC) Activity/Diet/Wound Care/Special Instructions: Activity Limited until follow-up Follow-up with primary care provider upon discharge Follow-up with GI in the outpatient setting in 1-2 weeks Continue with Protonix 40 mg twice daily until GI follow-up Avoid alcohol intake Continue regular diet Discharge Disposition: HOME SELF-CARE
== END 2020-02-17 14:10 | disposition home or self-care (01) | DRG 377 ==
LOC: EC 21:48 → OBSVTOIN 02-15 → 3SCARD 02-15 → 5NMEDONC 02-17 00:17
PROVIDERS: ADMIT Hospitalist; ATTEND Hospitalist
PROC: 06L38ZZ Occlusion of Esophageal Vein, Via Natural or Artificial Opening Endoscopic (ICD-10-PCS; principal; 2020-02-16 11:40)
DX: K92.2 Gastrointestinal hemorrhage, unspecified (principal); K85.90 Acute pancreatitis without necrosis or infection, unspecified; K76.6 Portal hypertension; E87.1 Hypo-osmolality and hyponatremia; E87.2 Acidosis; D68.9 Coagulation defect, unspecified; D62 Acute posthemorrhagic anemia; K70.31 Alcoholic cirrhosis of liver with ascites; K70.11 Alcoholic hepatitis with ascites; I85.10 Secondary esophageal varices without bleeding; D69.59 Other secondary thrombocytopenia; J45.909 Unspecified asthma, uncomplicated; F17.200 Nicotine dependence, unspecified, uncomplicated; F31.9 Bipolar disorder, unspecified; F41.9 Anxiety disorder, unspecified; F12.90 Cannabis use, unspecified, uncomplicated; K80.20 Calculus of gallbladder without cholecystitis without obstruction; F10.229 Alcohol dependence with intoxication, unspecified; Z79.899 Other long term (current) drug therapy; Z88.0 Allergy status to penicillin; Z88.2 Allergy status to sulfonamides; Z91.018 Allergy to other foods; Z98.890 Other specified postprocedural states; Z84.89 Family history of other specified conditions
CPT/HCPCS: 36415; 36430; 43244; 74177; 76705; 80048; 80053; 80320; 81025; 82140; 82550; 83605; 83690; 83735; 84100; 84484; 85025; 85027; 85610; 85730; 86850; 86900; 86901; 86920; 96361; 96372; 96374; 96375; 96376; 99291

== ENCOUNTER 2020-07-29 00:14 | Emergency (ER) | payer OTHER ==
[2020-07-29 00:27] VITALS: BP 96/57; PULSE 68; RESP 15; TEMP 97.4
--- NOTE | 2020-07-29 01:10 | ED ---
General Adult HPI - General Chief complaint: Extremity Injury, Upper Stated complaint: RT finger lac Time Seen by Provider: 07/29/20 00:30 Source: patient Mode of arrival: ambulatory Limitations: no limitations - History of Present Illness Initial comments: 50 year-old female patient presents to the emergency department for evaluation of bleeding wound. patient states she was cutting some dried skin off of her finger when it started to bleed. She states the blood was squirting out. States she applied a dressing and came right in. She denies use of blood thinners. Denies any significant pain to the area. Denies dizziness or weakness. States tetanus vaccine is up-to-date. - Related Data Previous Rx's Medication Instructions Recorded Furosemide [Lasix] 40 mg PO DAILY #30 tablet 01/09/18 Spironolactone [Aldactone] 50 mg PO DAILY #30 tab 01/09/18 Acetaminophen Tab [Tylenol] 650 mg PO Q6HR PRN #30 tab 02/17/20 Pantoprazole Sodium [Protonix] 40 mg PO BID 30 Days #60 tablet. 02/17/20 Propranolol [Inderal] 10 mg PO TID 30 Days #90 tab 02/17/20 Thiamine [Vitamin B-1] 100 mg PO BID-W/MEALS 30 Days #60 02/17/20 tab Allergies Allergy/AdvReac Type Severity Reaction Status Date / Time Penicillins Allergy Unknown Verified 07/29/20 00:23 Sulfa (Sulfonamide Allergy Unknown Verified 07/29/20 00:23 Antibiotics) walnut Allergy Anaphylaxis Verified 07/29/20 00:23 Review of Systems ROS Statement: Those systems with pertinent positive or pertinent negative responses have been documented in the HPI. ROS Other: All systems not noted in ROS Statement are negative. Past Medical History Past Medical History: Asthma, Liver Disease Additional Past Medical History / Comment(s): ascites,paracentesis 01-08-18, low platelets, previous ETOH abuse History of Any Multi-Drug Resistant Organisms: None Reported Past Surgical History: No Surgical Hx Reported Additional Past Surgical History / Comment(s): repair to spleen [place] Ruptured spleen in 1988 Past Anesthesia/Blood Transfusion Reactions: No Reported Reaction Additional Past Anesthesia/Blood Transfusion Reaction / Comment(s): pt not sure if had blood transfusion in past Past Psychological History: Anxiety, Bipolar, Depression Smoking Status: Current every day smoker Past Alcohol Use History: None Reported Past Drug Use History: Marijuana - Past Family History Sister(s) Additional Family Medical History / Comment(s): closed head injury Mother Family Medical History: No Reported History General Exam Limitations: no limitations General appearance: alert, in no apparent distress, other (This is a well- developed, well-nourished adult female patient in no acute distress. Vital signs upon presentation are temperature 97.4F, pulse 68, respirations 15, blood pressure 96/57, pulse ox 99% on room air.) Respiratory exam: Present: normal lung sounds bilaterally. Absent: respiratory distress, wheezes, rales, rhonchi, stridor Cardiovascular Exam: Present: regular rate, normal rhythm, normal heart sounds. Absent: systolic murmur, diastolic murmur, rubs, gallop, clicks Extremities exam: Present: full ROM, normal capillary refill, other (There is small puncture noted to the base of the right index finger medially. No active bleeding. Skin is otherwise pink, warm, dry. Cap refill less than 3 seconds. Radial pulses 2+.). Absent: tenderness, pedal edema, joint swelling, calf tenderness Neurological exam: Present: alert, oriented X3, CN II-XII intact Psychiatric exam: Present: normal affect, normal mood Skin exam: Present: warm, dry, intact, normal color. Absent: rash Course Vital Signs 07/29/20 00:24 Temperature 97.4 F L Pulse Rate 68 Respiratory 15 Rate Blood Pressure 96/57 O2 Sat by Pulse 99 Oximetry Medical Decision Making - Medical Decision Making 50-year-old female patient presented to the emergency department [facility] for evaluation of bleeding wound. Physical examination does reveal small puncture noted to the base of the right index finger. No active bleeding. We did cleanse the area. Patient washed her hands. Had full range of motion with no rebleeding. We did apply a pressure dressing until the morning. 3 discharge and follow-up with the primary care physician for recheck in 1-2 days. Return parameters discussed in detail. She verbalizes understanding and agrees with this plan. My attending is Dr. Crawford. Disposition Clinical Impression: Puncture wound of right index finger Disposition: HOME SELF-CARE Condition: Good Instructions (If sedation given, give patient instructions): Acute Wound Care (ED) Additional Instructions: Keep dressing in place until morning. Monitor for signs/symptoms of infection including but not limited to redness, swelling, drainage of pus, fever or chills. If bleeding starts again hold pressure and return to ER for further evaluation. Is patient prescribed a controlled substance at d/c from ED?: No Referrals: Rivka Gamez DO [Primary Care Provider] - 1-2 days Time of Disposition: 01:04
== END 2020-07-29 01:10 | disposition home or self-care (01) ==
LOC: EC 00:14
DX: S61.230A Puncture wound without foreign body of right index finger without damage to nail, initial encounter (principal); J45.909 Unspecified asthma, uncomplicated; F17.200 Nicotine dependence, unspecified, uncomplicated; Z88.0 Allergy status to penicillin; Z88.2 Allergy status to sulfonamides; W26.9XXA Contact with unspecified sharp object(s), initial encounter
CPT/HCPCS: 99282

== ENCOUNTER 2022-10-01 14:22 | Inpatient (IN) | payer OTHER ==
--- NOTE | 2022-10-01 15:41 | ED ---
Recheck HPI - General Source: patient, RN notes reviewed Mode of arrival: ambulatory Limitations: no limitations <Lamonte Zeng - Last Filed: 10/01/22 15:40> <Waldemar Meyer - Last Filed: 10/01/22 20:58> - General Chief Complaint: Recheck/Abnormal Lab/Rx Stated Complaint: low hemoglobin Time Seen by Provider: 10/01/22 15:40 - History of Present Illness Initial Comments: 52-year-old female presents emergency Department chief complaint low hemoglobin. Patient states she's ascending by PCP for hemoglobin of 6. This is a recurrent issue secondary to alcohol abuse, liver disease. Patient states she has no active bleeding. Patient states he stopped drinking a few weeks ago. Patient offers no complaints. (Lamonte Zeng) 52-year-old female with past medical history significant for cirrhosis of the liver secondary to alcoholism and recent hemorrhagic stroke presents to the ED with the chief complaints of abnormal labs. Patient states on 10/26/22 side her PCP and was found to have a hemoglobin of 6.9. Patient states over the past few weeks has had fatigue difficulty ambulating. Per notes some mental confusion of the patient especially at night noting that it seems like she just woke up from her dream also ongoing for the last few weeks. Denies abdominal pain, nausea, vomiting. Denies chest pain or shortness of breath. (Waldemar Meyer) - Related Data Previous Rx's Medication Instructions Recorded Furosemide [Lasix] 40 mg PO DAILY #30 tablet 01/09/18 Spironolactone [Aldactone] 50 mg PO DAILY #30 tab 01/09/18 Acetaminophen Tab [Tylenol] 650 mg PO Q6HR PRN #30 tab 02/17/20 Pantoprazole Sodium [Protonix] 40 mg PO BID 30 Days #60 tablet. 02/17/20 Propranolol [Inderal] 10 mg PO TID 30 Days #90 tab 02/17/20 Thiamine [Vitamin B-1] 100 mg PO BID-W/MEALS 30 Days #60 02/17/20 tab Allergies Allergy/AdvReac Type Severity Reaction Status Date / Time Penicillins Allergy Unknown Verified 10/01/22 14:38 Sulfa (Sulfonamide Allergy Unknown Verified 10/01/22 14:38 Antibiotics) walnut Allergy Anaphylaxis Verified 10/01/22 14:38 Review of Systems ROS Other: All systems not noted in ROS Statement are negative. <Lamonte Zeng - Last Filed: 10/01/22 15:40> ROS Other: All systems not noted in ROS Statement are negative. <Waldemar Meyer - Last Filed: 10/01/22 20:58> ROS Statement: Those systems with pertinent positive or pertinent negative responses have been documented in the HPI. Past Medical History Past Medical History: Asthma, Liver Disease Additional Past Medical History / Comment(s): ascites,paracentesis 01-08-18, low platelets, previous ETOH abuse History of Any Multi-Drug Resistant Organisms: None Reported Past Surgical History: No Surgical Hx Reported Additional Past Surgical History / Comment(s): repair to spleen [place] Ruptured spleen in 1988 Past Anesthesia/Blood Transfusion Reactions: No Reported Reaction Additional Past Anesthesia/Blood Transfusion Reaction / Comment(s): pt not sure if had blood transfusion in past Past Psychological History: Anxiety, Bipolar, Depression Smoking Status: Current every day smoker Past Alcohol Use History: None Reported Past Drug Use History: Marijuana - Past Family History Sister(s) Additional Family Medical History / Comment(s): closed head injury Mother Family Medical History: No Reported History <Lamonte Zeng - Last Filed: 10/01/22 15:40> General Exam Limitations: no limitations <Lamonte Zeng - Last Filed: 10/01/22 15:40> General appearance: alert Eye exam: Present: scleral icterus Neck exam: Present: normal inspection Respiratory exam: Present: normal lung sounds bilaterally Cardiovascular Exam: Present: regular rate, normal rhythm GI/Abdominal exam: Present: distended (No tenderness to palpation. Active bowel sounds. No fluid wave.), other (Caput medusae) Rectal exam: Present: normal rectal tone, other (No gross blood) Extremities exam: Present: other (No asterixsis) Neurological exam: Present: alert, oriented X3 (Some what slow to respond however answers questions appropriately) Skin exam: Present: warm, dry, other (Jaundiced) <Waldemar Meyer - Last Filed: 10/01/22 20:58> - General Exam Comments Initial Comments: Visual Physical Exam Vital signs reviewed General: Well-appearing, nontoxic, no acute distress. Head: Normocephalic, atraumatic Eyes: PERRLA, EOMI ENT: Airway patent Chest: Nonlabored breathing Skin: No visual rash, normal skin tone Neuro: Alert and oriented 3 Musculoskeletal: No gross abnormalities (Lamonte Zeng) Course Vital Signs 10/01/22 10/01/22 10/01/22 14:38 18:08 18:50 Temperature 97.3 F L 98.6 F Pulse Rate 81 83 85 Respiratory 16 18 17 Rate Blood Pressure 108/74 105/63 111/76 O2 Sat by Pulse 99 99 99 Oximetry 10/01/22 20:31 Temperature Pulse Rate 84 Respiratory 18 Rate Blood Pressure 108/70 O2 Sat by Pulse 96 Oximetry Medical Decision Making - Lab Data Result diagrams: 10/01/22 18:40 10/01/22 18:40 <Waldemar Meyer - Last Filed: 10/01/22 20:58> - Medical Decision Making Was pt. sent in by a medical professional or institution (, PA, TECTONOPHYSICIST, urgent care, hospital, or [facility]...) When possible be specific @ -No Did you speak to anyone other than the patient for history (EMS, parent, family, police, friend...)? What history was obtained from this source @ -Spoke to patient's /mother who note that patient with a last few weeks has been confused especially at nighttime. Also notes a history of hemorrhagic stroke in early June. Did you review nursing and triage notes (agree or disagree)? Why? @ -I reviewed and agree with nursing and triage notes Were old charts reviewed (outside hosp., previous admission, EMS record, old EKG, old radiological studies, urgent care reports/EKG's, [facility] records)? Report findings @ -No old charts were reviewed Differential Diagnosis (chest pain, altered mental status, abdominal pain women, abdominal pain men, vaginal bleeding, weakness, fever, dyspnea, syncope, headache, dizziness, GI bleed, back pain, seizure, CVA, palpatations, mental health, musculoskeletal)? @ -Differential Altered Mental Status: Hypoglycemia, DKA, hypercapnia, ETOH, overdose, CO poisoning, trauma, myxedema coma, HTN encephalopathy, infection, encephalitis, psychosis, intercranial hemorrhage, hepatic encephalopathy, meningitis, CVA, this is not meant to be an all-inclusive list EKG interpreted by me (3pts min.). @ -None X-rays interpreted by me (1pt min.). @ -None done CT interpreted by me (1pt min.). @ -None done U/S interpreted by me (1pt. min.). @ -None done What testing was considered but not performed or refused? (CT, X-rays, U/S, labs)? Why? @ -None What meds were considered but not given or refused? Why? @ -None Did you discuss the management of the patient with other professionals (prof monique i.e. , PA, TECTONOPHYSICIST, lab, RT, psych nurse, psychiatric social worker supervisor, grades 7 and 8 visiting teacher, teacher, small business banking officer, family caseworker)? Give summary @ -Spoke to Dr. García, who accepts admission Was smoking cessation discussed for >3mins.? @ -No Was critical care preformed (if so, how long)? @ -No Were there social determinants of health that impacted care today? How? (Homelessness, low income, unemployed, alcoholism, drug addiction, transportation, low edu. Level, literacy, decrease access to med. care, nursing home, rehab)? @ -No Was there de-escalation of care discussed even if they declined (Discuss DNR or withdrawal of care, Hospice)? DNR status @ -No What co-morbidities impacted this encounter? (DM, HTN, Smoking, COPD, CAD, Can cer, CVA, ARF, Chemo, Hep., AIDS, mental health diagnosis, sleep apnea, morbid obesity)? @ -None Was patient admitted / discharged? Hospital course, mention meds given and route, prescriptions, significant lab abnormalities, going to OR and other pertinent info. @ -Admitted. Labs showed anemia with hemoglobin 7.3 and thrombocytopenia plate lets of 40. Additionally chemistry panel significant for AST 95, AST 41, bilirubin 11.2. Albumin 3.4, lipase 334. INR is 2. Patient has lactic acidosis 4. Ammonia 55. Patient started on lactulose. She admitted secondary to acute on chronic liver failure secondary to alcohol use, encephalopathy, anemia/normal cytopenia. Discussed this with patient and family who are agreeable to care. Undiagnosed new problem with uncertain prognosis? @ -No Drug Therapy requiring intensive monitoring for toxicity (Heparin, Nitro, Insulin, Cardizem)? @ -No Were any procedures done? @ -No Diagnosis/symptom? @ -Cirrhosis, encephalopathy, lactic acidosis Acute, or Chronic, or Acute on Chronic? @ -Acute on chronic Uncomplicated (without systemic symptoms) or Complicated (systemic symptoms)? @ -Complicated Side effects of treatment? @ -No Exacerbation, Progression, or Severe Exacerbation? @ -No Poses a threat to life or bodily function? How? (Chest pain, [place], [place], pneumonia, PE, COPD, DKA, ARF, appy, cholecystitis, CVA, Diverticulitis, Homicidal, Suicidal, threat to staff... and all critical care pts) @ -Yes, acute liver failure, encephalopathy, lactic acidosis. (Waldemar Meyer) - Lab Data Lab Results 10/01/22 10/01/22 10/01/22 Range/Units 18:40 18:40 18:40 WBC 3.9 (3.8-10.6) k/uL RBC 1.64 L (3.80-5.40) m/uL Hgb 7.3 L (11.4-16.0) gm/dL Hct 21.3 L (34.0-46.0) % MCV 129.7 H (80.0-100.0) fL MCH 44.2 H (25.0-35.0) pg MCHC 34.1 (31.0-37.0) g/dL RDW 14.3 (11.5-15.5) % Plt Count 40 L (150-450) k/uL MPV 9.0 Neutrophils % 67 % Lymphocytes % 23 % Monocytes % 5 % Eosinophils % 3 % Basophils % 0 % Neutrophils # 2.6 (1.3-7.7) k/uL Lymphocytes # 0.9 L (1.0-4.8) k/uL Monocytes # 0.2 (0-1.0) k/uL Eosinophils # 0.1 (0-0.7) k/uL Basophils # 0.0 (0-0.2) k/uL Manual Slide Review Performed Polychromasia Present Hypochromasia Moderate Macrocytosis Marked A PT 19.7 H (9.0-12.0) sec INR 2.0 H (<1.2) APTT 29.5 (22.0-30.0) sec Sodium 140 (137-145) mmol/L Potassium 3.8 (3.5-5.1) mmol/L Chloride 108 H (98-107) mmol/L Carbon Dioxide 22 (22-30) mmol/L Anion Gap 10 mmol/L BUN 8 (7-17) mg/dL Creatinine 0.64 (0.52-1.04) mg/dL Est GFR (CKD-EPI)AfAm >90 (>60 ml/min/1.73 sqM) Est GFR (CKD-EPI)NonAf >90 (>60 ml/min/1.73 sqM) Glucose 163 H (74-99) mg/dL Plasma Lactic Acid Heladio (0.7-2.0) mmol/L Calcium 8.2 L (8.4-10.2) mg/dL Magnesium 2.0 (1.6-2.3) mg/dL Total Bilirubin 11.2 H (0.2-1.3) mg/dL AST 95 H (14-36) U/L ALT 41 H (4-34) U/L Alkaline Phosphatase 119 (38-126) U/L Ammonia (<30) umol/L Total Protein 8.1 (6.3-8.2) g/dL Albumin 3.4 L (3.5-5.0) g/dL Lipase 334 H (23-300) U/L Stool Occult Blood (Negative) Blood Type Blood Type Recheck Bld Type Recheck Status Antibody Screen Spec Expiration Date 10/01/22 10/01/22 10/01/22 Range/Units 18:40 18:52 19:15 WBC (3.8-10.6) k/uL RBC (3.80-5.40) m/uL Hgb (11.4-16.0) gm/dL Hct (34.0-46.0) % MCV (80.0-100.0) fL MCH (25.0-35.0) pg MCHC (31.0-37.0) g/dL RDW (11.5-15.5) % Plt Count (150-450) k/uL MPV Neutrophils % % Lymphocytes % % Monocytes % % Eosinophils % % Basophils % % Neutrophils # (1.3-7.7) k/uL Lymphocytes # (1.0-4.8) k/uL Monocytes # (0-1.0) k/uL Eosinophils # (0-0.7) k/uL Basophils # (0-0.2) k/uL Manual Slide Review Polychromasia Hypochromasia Macrocytosis PT (9.0-12.0) sec INR (<1.2) APTT (22.0-30.0) sec Sodium (137-145) mmol/L Potassium (3.5-5.1) mmol/L Chloride (98-107) mmol/L Carbon Dioxide (22-30) mmol/L Anion Gap mmol/L BUN (7-17) mg/dL Creatinine (0.52-1.04) mg/dL Est GFR (CKD-EPI)AfAm (>60 ml/min/1.73 sqM) Est GFR (CKD-EPI)NonAf (>60 ml/min/1.73 sqM) Glucose (74-99) mg/dL Plasma Lactic Acid Heladio 4.0 H* (0.7-2.0) mmol/L Calcium (8.4-10.2) mg/dL Magnesium (1.6-2.3) mg/dL Total Bilirubin (0.2-1.3) mg/dL AST (14-36) U/L ALT (4-34) U/L Alkaline Phosphatase (38-126) U/L Ammonia 55 H (<30) umol/L Total Protein (6.3-8.2) g/dL Albumin (3.5-5.0) g/dL Lipase (23-300) U/L Stool Occult Blood Negative (Negative) Blood Type A Positive Blood Type Recheck A Pos Bld Type Recheck Status No Antibody Screen NEGATIVE Spec Expiration Date 10/04/2022 - 2339 Disposition <Lamonte Zeng - Last Filed: 10/01/22 15:40> Time of Disposition: 20:45 <Waldemar Meyer - Last Filed: 10/01/22 20:58> Clinical Impression: Cirrhosis, Lactic acidosis, Encephalopathy Disposition: ADMITTED IP TO THIS HOSP Referrals: Nick Jo [Primary Care Provider] - 1-2 days
[2022-10-01 19:21] LABS: Basophils % (A) 0 %; Eosinophils # (A) 0.1 k/uL (0-0.7); Eosinophils % (A) 3 %; HCT 21.3 % (34.0-46.0); HGB 7.3 gm/dL (11.4-16.0); Hypochromasia Moderate; Lymphocytes # (A) 0.9 k/uL (1.0-4.8); Lymphocytes % (A) 23 %; MCHC 34.1 g/dL (31.0-37.0); MCV 129.7 fL (80.0-100.0); Macrocytosis Marked; Monocytes # (A) 0.2 k/uL (0-1.0); Monocytes % (A) 5 %; Neutrophils # (A) 2.6 k/uL (1.3-7.7); Neutrophils % (A) 67 %; RBC 1.64 m/uL (3.80-5.40); RDW 14.3 % (11.5-15.5); WBC 3.9 k/uL (3.8-10.6)
[2022-10-01 19:29] LABS: Partial Thromboplastin Time 29.5 sec (22.0-30.0); Prothrombin Time 19.7 sec (9.0-12.0)
[2022-10-01 19:30] LABS: MCH 44.2 pg (25.0-35.0)
[2022-10-01 19:33] LABS: ALT 41 U/L (4-34); AST 95 U/L (14-36); African American GFR (CKD) >90 (>60 ml/min/1.73 sqM); Albumin 3.4 g/dL (3.5-5.0); Alkaline Phosphatase 119 U/L (38-126); Anion Gap 10 mmol/L; Blood Urea Nitrogen 8 mg/dL (7-17); Calcium 8.2 mg/dL (8.4-10.2); Carbon Dioxide 22 mmol/L (22-30); Chloride 108 mmol/L (98-107); Glucose 163 mg/dL (74-99); Lipase 334 U/L (23-300); Non-African American GFR(CKD) >90 (>60 ml/min/1.73 sqM); Potassium 3.8 mmol/L (3.5-5.1); Sodium 140 mmol/L (137-145); Total Bilirubin 11.2 mg/dL (0.2-1.3); Total Protein 8.1 g/dL (6.3-8.2)
[2022-10-01 20:03] LABS: Platelet Count 40 k/uL (150-450); Polychromasia Present
[2022-10-01] MEDS ORDERED: LACTULOSE 20 GM/30 ML CUP PO ONE (20:17)
[2022-10-01] MEDS ORDERED: NALOXONE 0.4 MG/ML 1 ML VIAL IV PRN (20:45)
[2022-10-01] MEDS ORDERED: SODIUM CHLORIDE 0.9% 1,000 ML IV STA (20:53)
--- NOTE | 2022-10-02 00:47 | P.HPIM ---
History of Present Illness H&P Date: 10/01/22 Patient is a 52-year-old female with a PMH of alcoholic cirrhosis, ongoing alcohol abuse, recent hemorrhagic CVA, who presents to the emergency room sent in by her PCP for low hemoglobin. The patient had blood work as ordered by her PCP which revealed a hemoglobin of 6.9. The patient's family had also reported the patient had been somewhat confused over the past few days. The patient reports that she feels somewhat tired but denied any additional complaints. She denied experiencing any obvious bleeding including blood in stools or black tarry stools. She reports that her last drink was a few weeks ago but that she plans on quitting alcohol use. In the emergency room, laboratory evaluation revealed a hemoglobin of 7.3, down from 11.1 from 04/2020, MCV 129, platelet count 40, platelet count 40, lactic acid 4.0, INR 2.0, ammonia 55, AST 95, ALT 41, total bilirubin 11.2. Stool occult blood testing was negative. ED documentation reviewed and case discussed with ED provider. Review of systems: Pertinent positives and negatives as discussed in HPI, a complete review of systems was performed and all other systems are negative. Physical examination: Vital signs reviewed General: Jaundiced female, no distress, appears older than stated age, normal weight Derm: no unusual rashes/lesions, warm Head: atraumatic, normocephalic, symmetric Eyes: EOMI, no lid lag, scleral icterus noted, pupils equal round reactive to light ENT: Nose and ears atraumatic Neck: No cervical lymphadenopathy, trachea midline, supple Mouth: no lip lesion, mucus membranes moist Cardiovascular: S1S2 reg, no murmur, positive dorsalis pedis pulse bilateral, 1+ mikael LE pitting edema to knees Lungs: CTA bilateral, no rhonchi, no rales, no accessory muscle use Abdominal: soft, nontender to palpation, no guarding Ext: muscle strength 4 out of 5 in all 4 extremities grossly, no gross muscle atrophy, no contractures, Neuro: CN II-XI grossly intact, no gross focal neuro deficits Psych: Somewhat slow to respond but oriented to person, place, and time Assessment: Bicytopenia, suspect due to ongoing alcohol abuse Alcoholic cirrhosis Lactic acidosis Hepatic encephalopathy Imaging: None performed Data Review: In the emergency room, laboratory evaluation revealed a hemoglobin of 7.3, down from 11.1 from 04/2020, MCV 129, platelet count 40, platelet count 40, lactic acid 4.0, INR 2.0, ammonia 55, AST 95, ALT 41, total bilirubin 11.2. Stool occult blood testing was negative. Plan: Check B12 and folate levels GI consulted in light of cirrhosis with jaundice Elevated lactate likely due to cirrhosis Patient strongly advised on importance of cessation from further alcohol use Start patient on lactulose. Continue with home propranolol and spironolactone doses DVT prophylaxis: IPCDs The patient is admitted with an anticipated greater than 2 midnight stay for evaluation of cirrhosis CODE STATUS: Full Code Discussed with: Patient Anticipated discharge place: Home Past Medical History Past Medical History: Asthma, Liver Disease Additional Past Medical History / Comment(s): ascites,paracentesis 01-08-18, low platelets, previous ETOH abuse History of Any Multi-Drug Resistant Organisms: None Reported Past Surgical History: No Surgical Hx Reported Additional Past Surgical History / Comment(s): repair to spleen [place] Ruptured spleen in 1988 Past Anesthesia/Blood Transfusion Reactions: No Reported Reaction Additional Past Anesthesia/Blood Transfusion Reaction / Comment(s): pt not sure if had blood transfusion in past Past Psychological History: Anxiety, Bipolar, Depression Smoking Status: Current every day smoker Past Alcohol Use History: None Reported Past Drug Use History: Marijuana - Past Family History Sister(s) Additional Family Medical History / Comment(s): closed head injury Mother Family Medical History: Hyperlipidemia Medications and Allergies Home Medications Medication Instructions Recorded Confirmed Type Spironolactone [Aldactone] 50 mg PO DAILY #30 tab 01/09/18 10/01/22 Rx Ascorbic Acid [Vitamin C] 500 mg PO DAILY 10/01/22 10/01/22 History Brexpiprazole [Rexulti] 0.5 mg PO DAILY 10/01/22 10/01/22 History Co Q-10 100mg 1 tab PO DAILY 10/01/22 10/01/22 History FLUoxetine HCL [PROzac] 40 mg PO DAILY 10/01/22 10/01/22 History Ferrous Sulfate [Feosol] 325 mg PO TID 10/01/22 10/01/22 History Furosemide [Lasix] 20 mg PO DAILY 10/01/22 10/01/22 History Midodrine HCl [ProAmantine] 2.5 mg PO Q8H PRN 10/01/22 10/01/22 History Pantoprazole Sodium [Protonix] 40 mg PO DAILY 10/01/22 10/01/22 History Potassium Chloride ER [K-Dur 10] 10 meq PO DAILY 10/01/22 10/01/22 History Propranolol [Inderal] 10 mg PO BID 10/01/22 10/01/22 History Thiamine [Vitamin B-1] 100 mg PO DAILY 10/01/22 10/01/22 History lamoTRIgine [LaMICtal] 25 mg PO BID 10/01/22 10/01/22 History Allergies Allergy/AdvReac Type Severity Reaction Status Date / Time Penicillins Allergy Swelling Verified 10/01/22 22:37 tongue Sulfa (Sulfonamide Allergy Swelling Verified 10/01/22 22:37 Antibiotics) tongue walnut Allergy Anaphylaxis Verified 10/01/22 22:07 Physical Exam Vitals: Vital Signs Temp Pulse Resp BP Pulse Ox 10/01/22 20:31 84 18 108/70 96 10/01/22 18:50 85 17 111/76 99 10/01/22 18:08 98.6 F 83 18 105/63 99 10/01/22 14:38 97.3 F L 81 16 108/74 99 Intake and Output 10/01/22 10/01/22 10/02/22 14:59 22:59 06:59 Other: Weight 67.132 kg Results CBC & Chem 7: 10/01/22 18:40 10/01/22 18:40 Labs: Abnormal Lab Results - Last 24 Hours (Table) 10/01/22 10/01/22 10/01/22 Range/Units 18:40 18:40 18:40 RBC 1.64 L (3.80-5.40) m/uL Hgb 7.3 L (11.4-16.0) gm/dL Hct 21.3 L (34.0-46.0) % MCV 129.7 H (80.0-100.0) fL MCH 44.2 H (25.0-35.0) pg Plt Count 40 L (150-450) k/uL Lymphocytes # 0.9 L (1.0-4.8) k/uL Macrocytosis Marked A PT 19.7 H (9.0-12.0) sec INR 2.0 H (<1.2) Chloride 108 H (98-107) mmol/L Glucose 163 H (74-99) mg/dL Plasma Lactic Acid Heladio (0.7-2.0) mmol/L Calcium 8.2 L (8.4-10.2) mg/dL Total Bilirubin 11.2 H (0.2-1.3) mg/dL AST 95 H (14-36) U/L ALT 41 H (4-34) U/L Ammonia (<30) umol/L Albumin 3.4 L (3.5-5.0) g/dL Lipase 334 H (23-300) U/L 10/01/22 10/01/22 Range/Units 18:52 22:12 RBC (3.80-5.40) m/uL Hgb (11.4-16.0) gm/dL Hct (34.0-46.0) % MCV (80.0-100.0) fL MCH (25.0-35.0) pg Plt Count (150-450) k/uL Lymphocytes # (1.0-4.8) k/uL Macrocytosis PT (9.0-12.0) sec INR (<1.2) Chloride (98-107) mmol/L Glucose (74-99) mg/dL Plasma Lactic Acid Heladio 4.0 H* 4.1 H* (0.7-2.0) mmol/L Calcium (8.4-10.2) mg/dL Total Bilirubin (0.2-1.3) mg/dL AST (14-36) U/L ALT (4-34) U/L Ammonia 55 H (<30) umol/L Albumin (3.5-5.0) g/dL Lipase (23-300) U/L
[2022-10-02] MEDS ORDERED: MIDODRINE 5 MG TAB PO PRN (01:00)
[2022-10-02 03:18] LABS: ALT 37 U/L (4-34); AST 80 U/L (14-36); African American GFR (CKD) >90 (>60 ml/min/1.73 sqM); Albumin/Globulin Ratio 0.7; Alkaline Phosphatase 116 U/L (38-126); Anion Gap 11 mmol/L; Blood Urea Nitrogen 8 mg/dL (7-17); Calcium 8.3 mg/dL (8.4-10.2); Carbon Dioxide 21 mmol/L (22-30); Chloride 110 mmol/L (98-107); Globulin 4.4 g/dL; Glucose 98 mg/dL (74-99); Non-African American GFR(CKD) >90 (>60 ml/min/1.73 sqM); Potassium 3.2 mmol/L (3.5-5.1); Sodium 142 mmol/L (137-145); Total Protein 7.4 g/dL (6.3-8.2)
[2022-10-02 04:22] LABS: Lactic Acid, Venous 2.7 mmol/L (0.7-2.0)
[2022-10-02 07:09] LABS: Hypochromasia Slight; MCHC 33.6 g/dL (31.0-37.0); MCV 130.4 fL (80.0-100.0); Macrocytosis Marked; Mean Platelet Volume 8.9; Poikilocytosis Slight; RDW 14.3 % (11.5-15.5); WBC 3.6 k/uL (3.8-10.6)
[2022-10-02 07:33] LABS: HGB 6.1 gm/dL (11.4-16.0); MCH 43.8 pg (25.0-35.0)
[2022-10-02 07:34] LABS: HCT 18.3 % (34.0-46.0)
[2022-10-02 07:39] LABS: Platelet Count 33 k/uL (150-450)
[2022-10-02] MEDS ORDERED: FUROSEMIDE 20 MG TAB PO SCH (09:00)
[2022-10-02] MEDS ORDERED: SPIRONOLACTONE 25 MG TAB PO SCH (09:00)
[2022-10-02 10:07] LABS: Vitamin B12 >1800.0 pg/mL (200.0-944.0)
[2022-10-02] MEDS: FLUoxetine HCL 20 MG CAP PO SCH (10:52)
[2022-10-02] MEDS: ASCORBIC ACID 500 MG TAB PO SCH (10:52)
[2022-10-02] MEDS: NON FORMULARY DRUG (Brexpiprazole [Rexulti] 0.5 MG Tablet) PO SCH (10:53)
[2022-10-02] MEDS: THIAMINE 100 MG TAB PO SCH (10:54)
[2022-10-02] MEDS: FERROUS SULFATE 325 MG TAB PO SCH ×3 (10:54→21:47)
[2022-10-02] MEDS: POTASSIUM CHLORIDE ER 10 MEQ TAB.ER.PRT PO SCH (10:54)
[2022-10-02] MEDS: PROPRANOLOL 10 MG TAB PO SCH ×2 (10:54→20:15)
[2022-10-02] MEDS: PANTOPRAZOLE 40 MG TABLET PO SCH (10:54)
[2022-10-02] MEDS: LACTULOSE 20 GM/30 ML CUP PO SCH ×5 (10:55→21:47)
[2022-10-02] MEDS ORDERED: POTASSIUM CHLORIDE ER 20 MEQ TAB.ER PO STA (10:59)
[2022-10-02] MEDS: lamoTRIgine 25 MG TAB PO SCH ×2 (11:11→20:15)
[2022-10-02 12:34] LABS: INR 2.3 (<1.2); Prothrombin Time 22.3 sec (9.0-12.0)
[2022-10-02] MEDS ORDERED: PHYTONADIONE ORAL 5 MG/5 ML ORAL.SYRG PO STA (13:39)
--- NOTE | 2022-10-02 13:40 | US ---
EXAMINATION TYPE: US abdomen limited DATE OF EXAM: 10/02/2022 COMPARISON: CT abdomen and pelvis 02/14/2020 CLINICAL INDICATION: Female, 52 years old with history of History of cirrhosis, ascites; Per order, e valuate for fluid pockets. FINDINGS/IMPRESSION: All four quadrants scanned. Moderate volume ascites identified with largest pocket in the right lower quadrant.
--- NOTE | 2022-10-02 13:59 | P.PN ---
Subjective Progress Note Date: 10/02/22 Hospital Course: 52-year-old female with a PMH of alcoholic cirrhosis, ongoing alcohol abuse, recent hemorrhagic CVA, who presents to the emergency room sent in by her PCP for low hemoglobin. In the emergency room, laboratory evaluation revealed a hemoglobin of 7.3, down from 11.1 from 04/2020, MCV 129, platelet count 40, platelet count 40, lactic acid 4.0, INR 2.0, ammonia 55, AST 95, ALT 41, total bilirubin 11.2. Stool occult blood testing was negative. She is now receiving 1 unit of PRBCs, also pending GI evaluation. Subjective: Patient seen and examined at bedside. No acute events overnight. Pertinent positives and negatives as discussed above, a complete review of s ystems was performed and all other systems are negative. Vitals Signs Reviewed. General: Jaundiced female, no distress, appears older than stated age, normal weight Derm: no unusual rashes/lesions, warm Head: atraumatic, normocephalic, symmetric Eyes: EOMI, no lid lag, scleral icterus noted, pupils equal round reactive to light ENT: Nose and ears atraumatic Neck: No cervical lymphadenopathy, trachea midline, supple Mouth: no lip lesion, mucus membranes moist Cardiovascular: S1S2 reg, no murmur, positive dorsalis pedis pulse bilateral, 1+ mikael LE pitting edema to knees Lungs: CTA bilateral, no rhonchi, no rales, no accessory muscle use Abdominal: soft, nontender to palpation, no guarding Ext: muscle strength 4 out of 5 in all 4 extremities grossly, no gross muscle atrophy, no contractures, Neuro: CN II-XI grossly intact, no gross focal neuro deficits Psych: Somewhat slow to respond but oriented to person, place, and time Data Reviewed Today: Pertinent Labs: INR 2.3 Imaging: Liver ultrasound shows Moderate volume ascites Assessment and Plan: Active: Bicytopenia, likely in the setting of cirrhosis and ongoing alcohol use Alcoholic cirrhosis Hepatic encephalopathy Hypokalemia Supratherapeutic INR -pending 1 unit of PRBCs, repeat CBC tomorrow -Pending GI evaluation -Continue lactulose -Given 40 mEq of oral potassium -Repeat BMP tomorrow -Was given 10 mg vitamin K per GI Resolved: Lactic acidosis Chronic: Psychiatric History of hemorrhagic CVA DVT ppx: Supratherapeutic INR Code status: full code Anticipated discharge place: pending clinical course Anticipated discharge time: pending clincal course Objective - Vital Signs Vital signs: Vital Signs Temp 98.6 F 10/02/22 11:58 Pulse 76 10/02/22 11:58 Resp 18 10/02/22 11:58 BP 106/69 10/02/22 12:09 Pulse Ox 98 10/02/22 11:58 FiO2 Intake & Output 10/01/22 10/02/22 10/02/22 18:59 06:59 18:59 Intake Total 310 Balance 310 Weight 67.132 kg 67.132 kg Intake: Blood Product 310 Rc As-1 Unit 310 [id number] Other: # Voids 2 - Labs CBC & Chem 7: 10/02/22 06:53 10/02/22 02:12 Labs: Abnormal Lab Results - Last 24 Hours (Table) 10/01/22 10/01/22 10/01/22 Range/Units 18:40 18:40 18:40 WBC (3.8-10.6) k/uL RBC 1.64 L (3.80-5.40) m/uL Hgb 7.3 L (11.4-16.0) gm/dL Hct 21.3 L (34.0-46.0) % MCV 129.7 H (80.0-100.0) fL MCH 44.2 H (25.0-35.0) pg Plt Count 40 L (150-450) k/uL Lymphocytes # 0.9 L (1.0-4.8) k/uL Macrocytosis Marked A PT 19.7 H (9.0-12.0) sec INR 2.0 H (<1.2) Potassium (3.5-5.1) mmol/L Chloride 108 H (98-107) mmol/L Carbon Dioxide (22-30) mmol/L Glucose 163 H (74-99) mg/dL Plasma Lactic Acid Heladio (0.7-2.0) mmol/L Calcium 8.2 L (8.4-10.2) mg/dL Total Bilirubin 11.2 H (0.2-1.3) mg/dL AST 95 H (14-36) U/L ALT 41 H (4-34) U/L Ammonia (<30) umol/L Albumin 3.4 L (3.5-5.0) g/dL Lipase 334 H (23-300) U/L Vitamin B12 (200.0-944.0) pg/mL Crossmatch 10/01/22 10/01/22 10/01/22 Range/Units 18:40 18:52 22:12 WBC (3.8-10.6) k/uL RBC (3.80-5.40) m/uL Hgb (11.4-16.0) gm/dL Hct (34.0-46.0) % MCV (80.0-100.0) fL MCH (25.0-35.0) pg Plt Count (150-450) k/uL Lymphocytes # (1.0-4.8) k/uL Macrocytosis PT (9.0-12.0) sec INR (<1.2) Potassium (3.5-5.1) mmol/L Chloride (98-107) mmol/L Carbon Dioxide (22-30) mmol/L Glucose (74-99) mg/dL Plasma Lactic Acid Heladio 4.0 H* 4.1 H* (0.7-2.0) mmol/L Calcium (8.4-10.2) mg/dL Total Bilirubin (0.2-1.3) mg/dL AST (14-36) U/L ALT (4-34) U/L Ammonia 55 H (<30) umol/L Albumin (3.5-5.0) g/dL Lipase (23-300) U/L Vitamin B12 (200.0-944.0) pg/mL Crossmatch See Detail 10/02/22 10/02/22 10/02/22 Range/Units 02:12 02:12 06:53 WBC 3.6 L (3.8-10.6) k/uL RBC 1.40 L (3.80-5.40) m/uL Hgb 6.1 L* (11.4-16.0) gm/dL Hct 18.3 L* (34.0-46.0) % MCV 130.4 H (80.0-100.0) fL MCH 43.8 H (25.0-35.0) pg Plt Count 33 L (150-450) k/uL Lymphocytes # (1.0-4.8) k/uL Macrocytosis Marked A PT (9.0-12.0) sec INR (<1.2) Potassium 3.2 L (3.5-5.1) mmol/L Chloride 110 H (98-107) mmol/L Carbon Dioxide 21 L (22-30) mmol/L Glucose (74-99) mg/dL Plasma Lactic Acid Heladio 2.7 H* (0.7-2.0) mmol/L Calcium 8.3 L (8.4-10.2) mg/dL Total Bilirubin 10.0 H (0.2-1.3) mg/dL AST 80 H (14-36) U/L ALT 37 H (4-34) U/L Ammonia 101 H (<30) umol/L Albumin 3.0 L (3.5-5.0) g/dL Lipase (23-300) U/L Vitamin B12 >1800.0 H (200.0-944.0) pg/mL Crossmatch 10/02/22 Range/Units 12:01 WBC (3.8-10.6) k/uL RBC (3.80-5.40) m/uL Hgb (11.4-16.0) gm/dL Hct (34.0-46.0) % MCV (80.0-100.0) fL MCH (25.0-35.0) pg Plt Count (150-450) k/uL Lymphocytes # (1.0-4.8) k/uL Macrocytosis PT 22.3 H (9.0-12.0) sec INR 2.3 H (<1.2) Potassium (3.5-5.1) mmol/L Chloride (98-107) mmol/L Carbon Dioxide (22-30) mmol/L Glucose (74-99) mg/dL Plasma Lactic Acid Heladio (0.7-2.0) mmol/L Calcium (8.4-10.2) mg/dL Total Bilirubin (0.2-1.3) mg/dL AST (14-36) U/L ALT (4-34) U/L Ammonia (<30) umol/L Albumin (3.5-5.0) g/dL Lipase (23-300) U/L Vitamin B12 (200.0-944.0) pg/mL Crossmatch
[2022-10-02] MEDS: NICOTINE 21MG/24HR PATCH TRANSDERM SCH (14:13)
--- NOTE | 2022-10-02 15:37 | P.CONS ---
History of Present Illness - Reason for Consult Consult date: 10/02/22 Liver cirrhosis, ascites, hepatic encephalopathy Requesting physician: Norma Jeffers - Chief Complaint Low hemoglobin - History of Present Illness This is a 52-year-old female with a past medical history for cirrhosis of the liver secondary to alcoholism, recent hemorrhagic stroke, and asthma who presented to the emergency department directed by her primary care physician for low hemoglobin. Patient was diagnosed with alcoholic cirrhosis of the liver about 5 years ago. She had been seeing Dr. Alcantar at that time however has moved to [place] since then and has not followed with any post hole digger. She does state though however she was taking Aldactone and Lasix as prescribed. Patient appears somewhat confused at this time. States she has been feeling mo re fatigued than usual. She reports previous paracentesis in the past but none recently. Reviewing her hospital records it looks like last paracentesis was in 2017. In December 2017 she had a suspected CBD stone and underwent ERCP with Dr. Villasenor with findings of dilated common bile duct but no filling defect to suggest common bile duct stone. In 02/16/2020 she underwent an EGD with Dr. Alcantar for acute upper GI bleed with findings of large mid/distal esophageal varices with no active bleeding status post variceal ligation, and moderate severe portal hypertensive gastropathy. Patient states she has still been drinking she just quit about 2 weeks ago. States she was drinking wine every day. Labs WBC 3.6 hemoglobin 6.1 hematocrit 18 platelet count 33,000 sodium 142 potassium 3.2 BUN 8 creatinine 0.5 lactic acid 2.7 with a repeat 1.9 total bilirubin 10.0 AST 80 ALT 37 alkaline phosphatase 116 Review of Systems REVIEW OF SYSTEMS: CARDIOPULMONARY: No chest pain or shortness of breath. Gastrointestinal: Abdominal distention. No nausea or vomiting. No hematemesis, coffee-ground emesis. No rectal bleeding, or melena. GENITOURINARY: No dysuria or hematuria. MUSCULOSKELETAL: Reports normal range of motion., Joint pain. SKIN: No rashes. Jaundice. ENDOCRINE: No chills, fevers. No excessive weight gain or loss. No polydipsia or polyuria. PSYCHIATRIC: Unremarkable. NEUROLOGY: Increased fatigue, confusion. Denies dizziness, headache. ENT: Vision unremarkable. CONSTITUTIONAL: No recent weight loss. No fever, chills, night sweats. Past Medical History Past Medical History: Asthma, Liver Disease Additional Past Medical History / Comment(s): ascites,paracentesis 01-08-18, low platelets, previous ETOH abuse History of Any Multi-Drug Resistant Organisms: None Reported Past Surgical History: No Surgical Hx Reported Additional Past Surgical History / Comment(s): repair to spleen [place] Ruptured spleen in 1988 Past Anesthesia/Blood Transfusion Reactions: No Reported Reaction Additional Past Anesthesia/Blood Transfusion Reaction / Comm: pt not sure if had blood transfusion in past Past Psychological History: Anxiety, Bipolar, Depression Smoking Status: Current every day smoker Past Alcohol Use History: None Reported Additional Past Alcohol Use History / Comment(s): Patient states she will buy a pint of vodka that lasts her 2-3 days,pt stated "was drinking 1 liter of wine per day, but no alcholol in approx 1 mos (Dec 2017)" Past Drug Use History: Marijuana Additional Drug Use History / Comment(s): Previous marijuana use; Smokes a pack a day of cigarettes - Past Family History Sister(s) Additional Family Medical History / Comment(s): closed head injury Mother Family Medical History: Diabetes Mellitus, Hyperlipidemia Medications and Allergies Home Medications Medication Instructions Recorded Confirmed Type Spironolactone [Aldactone] 50 mg PO DAILY #30 tab 01/09/18 10/01/22 Rx Ascorbic Acid [Vitamin C] 500 mg PO DAILY 10/01/22 10/01/22 History Brexpiprazole [Rexulti] 0.5 mg PO DAILY 10/01/22 10/01/22 History Co Q-10 100mg 1 tab PO DAILY 10/01/22 10/01/22 History FLUoxetine HCL [PROzac] 40 mg PO DAILY 10/01/22 10/01/22 History Ferrous Sulfate [Feosol] 325 mg PO TID 10/01/22 10/01/22 History Furosemide [Lasix] 20 mg PO DAILY 10/01/22 10/01/22 History Midodrine HCl [ProAmantine] 2.5 mg PO Q8H PRN 10/01/22 10/01/22 History Pantoprazole Sodium [Protonix] 40 mg PO DAILY 10/01/22 10/01/22 History Potassium Chloride ER [K-Dur 10] 10 meq PO DAILY 10/01/22 10/01/22 History Propranolol [Inderal] 10 mg PO BID 10/01/22 10/01/22 History Thiamine [Vitamin B-1] 100 mg PO DAILY 10/01/22 10/01/22 History lamoTRIgine [LaMICtal] 25 mg PO BID 10/01/22 10/01/22 History Allergies Allergy/AdvReac Type Severity Reaction Status Date / Time Penicillins Allergy Swelling Verified 10/01/22 22:37 tongue Sulfa (Sulfonamide Allergy Swelling Verified 10/01/22 22:37 Antibiotics) tongue walnut Allergy Anaphylaxis Verified 10/01/22 22:07 Physical Exam Vitals: Vital Signs Temp Pulse Resp BP Pulse Ox 10/02/22 09:17 97.6 F 83 18 100/62 98 10/02/22 08:57 98.1 F 79 17 103/70 97 10/02/22 08:48 98.4 F 78 18 101/66 98 10/02/22 07:20 98 F 8 L 16 107/71 98 10/02/22 03:52 98.6 F 92 18 93/60 97 10/01/22 20:31 84 18 108/70 96 10/01/22 18:50 85 17 111/76 99 10/01/22 18:08 98.6 F 83 18 105/63 99 10/01/22 14:38 97.3 F L 81 16 108/74 99 Intake and Output 10/01/22 10/02/22 10/02/22 22:59 06:59 14:59 Intake Total 0 Balance 0 Intake: Blood Product 0 Rc As-1 Unit 0 [id number] Other: Weight 67.132 kg General appearance: The patient is alert, oriented, appears in no acute distress. HET: Head is normocephalic and atraumatic. Conjunctiva pink. Sclera icteric. Neck: Supple without lymphadenopathy. Trachea midline. Heart: S1 S2. Regular rate and rhythm. Lungs: Clear to auscultation. Abdomen: Soft, nontender, hepatomegaly, ascites with distention, umbilical hernia soft and reducible.. No guarding or rigidity. Skin: No rashes. Jaundice. Extremities: Normal skin color and turgor. Pedal edema. Neurological: No focal deficits. Alert and oriented x3. Results CBC & Chem 7: 10/02/22 06:53 10/02/22 02:12 Labs: Abnormal Lab Results - Last 24 Hours (Table) 10/01/22 10/01/22 10/01/22 Range/Units 18:40 18:40 18:40 WBC (3.8-10.6) k/uL RBC 1.64 L (3.80-5.40) m/uL Hgb 7.3 L (11.4-16.0) gm/dL Hct 21.3 L (34.0-46.0) % MCV 129.7 H (80.0-100.0) fL MCH 44.2 H (25.0-35.0) pg Plt Count 40 L (150-450) k/uL Lymphocytes # 0.9 L (1.0-4.8) k/uL Macrocytosis Marked A PT 19.7 H (9.0-12.0) sec INR 2.0 H (<1.2) Potassium (3.5-5.1) mmol/L Chloride 108 H (98-107) mmol/L Carbon Dioxide (22-30) mmol/L Glucose 163 H (74-99) mg/dL Plasma Lactic Acid Heladio (0.7-2.0) mmol/L Calcium 8.2 L (8.4-10.2) mg/dL Total Bilirubin 11.2 H (0.2-1.3) mg/dL AST 95 H (14-36) U/L ALT 41 H (4-34) U/L Ammonia (<30) umol/L Albumin 3.4 L (3.5-5.0) g/dL Lipase 334 H (23-300) U/L Vitamin B12 (200.0-944.0) pg/mL Crossmatch 10/01/22 10/01/22 10/01/22 Range/Units 18:40 18:52 22:12 WBC (3.8-10.6) k/uL RBC (3.80-5.40) m/uL Hgb (11.4-16.0) gm/dL Hct (34.0-46.0) % MCV (80.0-100.0) fL MCH (25.0-35.0) pg Plt Count (150-450) k/uL Lymphocytes # (1.0-4.8) k/uL Macrocytosis PT (9.0-12.0) sec INR (<1.2) Potassium (3.5-5.1) mmol/L Chloride (98-107) mmol/L Carbon Dioxide (22-30) mmol/L Glucose (74-99) mg/dL Plasma Lactic Acid Heladio 4.0 H* 4.1 H* (0.7-2.0) mmol/L Calcium (8.4-10.2) mg/dL Total Bilirubin (0.2-1.3) mg/dL AST (14-36) U/L ALT (4-34) U/L Ammonia 55 H (<30) umol/L Albumin (3.5-5.0) g/dL Lipase (23-300) U/L Vitamin B12 (200.0-944.0) pg/mL Crossmatch See Detail 10/02/22 10/02/22 10/02/22 Range/Units 02:12 02:12 06:53 WBC 3.6 L (3.8-10.6) k/uL RBC 1.40 L (3.80-5.40) m/uL Hgb 6.1 L* (11.4-16.0) gm/dL Hct 18.3 L* (34.0-46.0) % MCV 130.4 H (80.0-100.0) fL MCH 43.8 H (25.0-35.0) pg Plt Count 33 L (150-450) k/uL Lymphocytes # (1.0-4.8) k/uL Macrocytosis Marked A PT (9.0-12.0) sec INR (<1.2) Potassium 3.2 L (3.5-5.1) mmol/L Chloride 110 H (98-107) mmol/L Carbon Dioxide 21 L (22-30) mmol/L Glucose (74-99) mg/dL Plasma Lactic Acid Heladio 2.7 H* (0.7-2.0) mmol/L Calcium 8.3 L (8.4-10.2) mg/dL Total Bilirubin 10.0 H (0.2-1.3) mg/dL AST 80 H (14-36) U/L ALT 37 H (4-34) U/L Ammonia 101 H (<30) umol/L Albumin 3.0 L (3.5-5.0) g/dL Lipase (23-300) U/L Vitamin B12 >1800.0 H (200.0-944.0) pg/mL Crossmatch Assessment and Plan (1) Cirrhosis of liver Narrative/Plan: D2-year-old female with a history of alcoholic cirrhosis of the liver diagnosed at least 5 years ago with a history of heavy alcohol abuse for many years. Patient recently moved back from [place] states she is still drinking daily up until 2 weeks ago. States she drinks wine daily. She at one time had followed with Dr. Villasenor and Dr. Alcantar, but then she moved to [place] for the last couple years. She states she had not followed with any post hole digger and usually just saw [facility] doctor. However she does state that she was taking her spironolactone and Lasix regularly. She started having abdominal distention over the last couple weeks. Last paracentesis in 2018. Patient presents with liver failure with hepatic encephalopathy, ascites, and pancytopenia. Current Visit: Yes Status: Acute Code(s): K74.60 - UNSPECIFIED CIRRHOSIS OF LIVER SNOMED Code(s): 49525903 (2) Hepatic encephalopathy Current Visit: Yes Status: Acute Code(s): K76.82 - HEPATIC ENCEPHALOPATHY SNOMED Code(s): 79941757 (3) Pancytopenia Current Visit: Yes Status: Acute Code(s): D61.818 - OTHER PANCYTOPENIA SNOMED Code(s): 927737804 (4) Ascites Current Visit: No Status: Acute Code(s): R18.8 - OTHER ASCITES SNOMED Code(s): 910271446 Plan: 1. Continue symptomatic and supportive care 2. Liver ultrasound ordered evaluate liver and ascites 3. Vitamin K ordered 4. Daily CBC, CMP, ammonia, PT INR 5. We'll plan for FFP, platelets tomorrow with possible paracentesis 6. Increase Lasix to 40 mg twice a day for 24 hours then decrease to 40 mg daily 7. Increase spironolactone to 100 mg daily 8. Recommend alcohol abstinence Thank you for this consultation, we will continue to follow. Dr. Liv Alcantar I agree with the dictator's note, documented as a scribe by Valery Flaherty.
[2022-10-02] MEDS: FUROSEMIDE 40 MG TAB PO SCH (16:41)
[2022-10-03 06:49] LABS: ALT 41 U/L (4-34); AST 83 U/L (14-36); African American GFR (CKD) >90 (>60 ml/min/1.73 sqM); Albumin 3.2 g/dL (3.5-5.0); Albumin/Globulin Ratio 0.7; Alkaline Phosphatase 86 U/L (38-126); Anion Gap 8 mmol/L; Blood Urea Nitrogen 5 mg/dL (7-17); Calcium 8.2 mg/dL (8.4-10.2); Carbon Dioxide 22 mmol/L (22-30); Chloride 109 mmol/L (98-107); Globulin 4.6 g/dL; Glucose 87 mg/dL (74-99); Magnesium 1.5 mg/dL (1.6-2.3); Non-African American GFR(CKD) >90 (>60 ml/min/1.73 sqM); Potassium 3.4 mmol/L (3.5-5.1); Sodium 139 mmol/L (137-145); Total Bilirubin 13.1 mg/dL (0.2-1.3); Total Protein 7.8 g/dL (6.3-8.2)
[2022-10-03 07:37] LABS: Anisocytosis Moderate; Basophils % (A) 0 %; Eosinophils # (A) 0.1 k/uL (0-0.7); Eosinophils % (A) 3 %; HCT 26.8 % (34.0-46.0); Hypochromasia Slight; Lymphocytes # (A) 0.6 k/uL (1.0-4.8); Lymphocytes % (A) 17 %; MCH 39.8 pg (25.0-35.0); MCHC 33.4 g/dL (31.0-37.0); Macrocytosis Marked; Mean Platelet Volume 11.3; Monocytes # (A) 0.2 k/uL (0-1.0); Monocytes % (A) 5 %; Neutrophils # (A) 2.5 k/uL (1.3-7.7); Neutrophils % (A) 71 %; Poikilocytosis Slight; RBC 2.24 m/uL (3.80-5.40); RDW 20.6 % (11.5-15.5); WBC 3.5 k/uL (3.8-10.6)
[2022-10-03 07:43] LABS: HGB 8.9 gm/dL (11.4-16.0); MCV 119.2 fL (80.0-100.0)
[2022-10-03 07:44] LABS: Platelet Count 22 k/uL (150-450)
[2022-10-03] MEDS ORDERED: POTASSIUM CHLORIDE ER 20 MEQ TAB.ER PO STA (09:04)
[2022-10-03] MEDS: LACTULOSE 20 GM/30 ML CUP PO SCH ×4 (09:53→22:01)
[2022-10-03] MEDS: FLUoxetine HCL 20 MG CAP PO SCH (09:54)
[2022-10-03] MEDS: FERROUS SULFATE 325 MG TAB PO SCH ×3 (09:55→22:13)
[2022-10-03] MEDS: PANTOPRAZOLE 40 MG TABLET PO SCH (09:55)
[2022-10-03] MEDS: POTASSIUM CHLORIDE ER 10 MEQ TAB.ER.PRT PO SCH (09:55)
[2022-10-03] MEDS: PROPRANOLOL 10 MG TAB PO SCH ×2 (09:56→22:07)
[2022-10-03] MEDS: SPIRONOLACTONE 25 MG TAB PO SCH (09:56)
[2022-10-03] MEDS: THIAMINE 100 MG TAB PO SCH (09:57)
[2022-10-03] MEDS: FUROSEMIDE 40 MG TAB PO SCH ×2 (09:57→15:50)
[2022-10-03] MEDS: ASCORBIC ACID 500 MG TAB PO SCH (09:57)
[2022-10-03] MEDS: NICOTINE 21MG/24HR PATCH TRANSDERM SCH (09:57)
[2022-10-03] MEDS: lamoTRIgine 25 MG TAB PO SCH ×2 (09:57→22:13)
[2022-10-03 10:55] LABS: INR 2.3 (<1.2); Prothrombin Time 22.8 sec (9.0-12.0)
--- NOTE | 2022-10-03 11:39 | P.PN ---
Subjective Progress Note Date: 10/03/22 Principal diagnosis: Decompensated alcoholic cirrhosis of the liver, ascites This is a 52-year-old female with a past medical history for cirrhosis of the liver secondary to alcoholism, recent hemorrhagic stroke, and asthma who presented to the emergency department directed by her primary care physician for low hemoglobin. Patient was diagnosed with alcoholic cirrhosis of the liver about 5 years ago. She had been seeing Dr. Alcantar at that time however has moved to [place] since then and has not followed with any cardiac catheterization technologist. She does state though however she was taking Aldactone and Lasix as prescribed. Patient appears somewhat confused at this time. States she has been feeling more fatigued than usual. She reports previous paracentesis in the past but non e recently. Reviewing her hospital records it looks like last paracentesis was in 2018. In December 2017 she had a suspected CBD stone and underwent ERCP with Dr. Villasenor with findings of dilated common bile duct but no filling defect to suggest common bile duct stone. In 02/16/2020 she underwent an EGD with Dr. Alcantar for acute upper GI bleed with findings of large mid/distal esophageal varices with no active bleeding status post variceal ligation, and moderate severe portal hypertensive gastropathy. Patient states she has still been drinking she just quit about 2 weeks ago. States she was drinking wine every day. Labs WBC 3.6 hemoglobin 6.1 hematocrit 18 platelet count 33,000 sodium 142 po tassium 3.2 BUN 8 creatinine 0.5 lactic acid 2.7 with a repeat 1.9 total bilirubin 10.0 AST 80 ALT 37 alkaline phosphatase 116 10/03/2022 Patient was seen and examined today as a follow-up. She seems more alert and less confused today. States she is feeling better today. She denies any abdominal pain, any nausea vomiting, fevers or chills. Abdominal ultrasound shows moderate amount of ascites. Denies any signs or symptoms of GI bleed. Today's repeat labs WBC 3.5 hemoglobin 8.9 hematocrit 26 platelet count 22,000 INR 2.3 sodium 139 potassium 3.4 and magnesium 1.5 total bilirubin 13 AST 83 ALT 41 alkaline phosphatase 86 ammonia 25 Objective - Vital Signs Vital signs: Vital Signs Temp 97.5 F L 10/03/22 10:30 Pulse 69 10/03/22 10:50 Resp 16 10/03/22 10:30 BP 98/65 10/03/22 10:50 Pulse Ox 95 10/03/22 10:50 FiO2 Intake & Output 10/02/22 10/03/22 10/03/22 18:59 06:59 18:59 Intake Total 1010 236 Balance 1010 236 Weight 67.132 kg Intake: Intake, IV Titration 150 Amount Sodium Chloride 0.9% 1, 150 000 ml @ 75 mls/hr IV . [id number] STA Rx#:[id number] Oral 240 236 Blood Product 620 0 Unit 0 Rc As-1 Unit 310 [id number] Other: Voiding Method Bedside Commode # Voids 1 1 # Bowel Movements 2 1 - Exam General appearance: The patient is alert, oriented, appears in no acute distress. HET: Head is normocephalic and atraumatic. Conjunctiva pink. Sclera icteric. Neck: Supple without lymphadenopathy. Abdomen: Soft, nontender, distended with umbilical hernia, soft, reducible. Extremities: Normal skin color and turgor. Pedal edema. Skin: No rashes, jaundice. Neurological: No focal deficits. Alert and oriented. - Labs CBC & Chem 7: 10/03/22 06:09 10/03/22 06:09 Labs: Abnormal Lab Results - Last 24 Hours (Table) 10/01/22 10/02/22 10/03/22 Range/Units 18:40 12:01 06:09 WBC (3.8-10.6) k/uL RBC (3.80-5.40) m/uL Hgb (11.4-16.0) gm/dL Hct (34.0-46.0) % MCV (80.0-100.0) fL MCH (25.0-35.0) pg RDW (11.5-15.5) % Plt Count (150-450) k/uL Lymphocytes # (1.0-4.8) k/uL Macrocytosis PT 22.3 H 22.8 H (9.0-12.0) sec INR 2.3 H 2.3 H (<1.2) Potassium (3.5-5.1) mmol/L Chloride (98-107) mmol/L BUN (7-17) mg/dL Calcium (8.4-10.2) mg/dL Magnesium (1.6-2.3) mg/dL Total Bilirubin (0.2-1.3) mg/dL AST (14-36) U/L ALT (4-34) U/L Albumin (3.5-5.0) g/dL Crossmatch See Detail 10/03/22 10/03/22 Range/Units 06:09 06:09 WBC 3.5 L (3.8-10.6) k/uL RBC 2.24 L (3.80-5.40) m/uL Hgb 8.9 L D (11.4-16.0) gm/dL Hct 26.8 L (34.0-46.0) % MCV 119.2 H D (80.0-100.0) fL MCH 39.8 H (25.0-35.0) pg RDW 20.6 H (11.5-15.5) % Plt Count 22 L (150-450) k/uL Lymphocytes # 0.6 L (1.0-4.8) k/uL Macrocytosis Marked A PT (9.0-12.0) sec INR (<1.2) Potassium 3.4 L (3.5-5.1) mmol/L Chloride 109 H (98-107) mmol/L BUN 5 L (7-17) mg/dL Calcium 8.2 L (8.4-10.2) mg/dL Magnesium 1.5 L (1.6-2.3) mg/dL Total Bilirubin 13.1 H (0.2-1.3) mg/dL AST 83 H (14-36) U/L ALT 41 H (4-34) U/L Albumin 3.2 L (3.5-5.0) g/dL Crossmatch Assessment and Plan (1) Cirrhosis of liver Narrative/Plan: 52-year-old female with a history of alcoholic cirrhosis of the liver diagnosed at least 5 years ago with a history of heavy alcohol abuse for many years. Patient recently moved back from [place] states she is still drinking daily up until 2 weeks ago. States she drinks wine daily. She at one time had followed with Dr. Villasenor and Dr. Alcantar, but then she moved to [place] for the last couple years. She states she had not followed with any cardiac catheterization technologist and usually just saw [facility] doctor. However she does state that she was taking her spironolactone and Lasix regularly. She started having abdominal distention over the last couple weeks. Last paracentesis in 2018. Patient presents with liver failure with hepatic encephalopathy, ascites, and pancytopenia. In this patient with decompensated alcoholic cirrhosis of liver presenting with ascites, pancytopenia, coagulopathy. Patient was given vitamin K yesterday with a repeat INR of 2.3. Hemoglobin improved with 1 unit of blood yesterday, platelet count dropped to 22,000 and will transfuse with platelets. INR remains 2.3 after vitamin K will give FFP. Continue medical management, continue lactu lose. Would consider consultation to hematology for management of pancytopenia from underlying liver disease as there will be no GI present in the hospital after today. Current Visit: Yes Status: Acute Code(s): K74.60 - UNSPECIFIED CIRRHOSIS OF LIVER SNOMED Code(s): 08720022 (2) Hepatic encephalopathy Current Visit: Yes Status: Acute Code(s): K76.82 - HEPATIC ENCEPHALOPATHY SNOMED Code(s): 14697787 (3) Pancytopenia Current Visit: Yes Status: Acute Code(s): D61.818 - OTHER PANCYTOPENIA SNOMED Code(s): 886005052 (4) Ascites Current Visit: No Status: Acute Code(s): R18.8 - OTHER ASCITES SNOMED Code(s): 003450850 (5) Coagulopathy Current Visit: Yes Status: Acute Code(s): D68.9 - COAGULATION DEFECT, UNSPECIFIED SNOMED Code(s): 10499551 Plan: 1. Continue symptomatic and supportive care 2. Daily CBC, CMP, PT/INR. Transfuse for hemoglobin less than 7 3. FFP and platelets ordered 4. Decrease Lasix to 40 mg daily, continue spironolactone 100 mg daily 5. Consider consultation to hematology for pancytopenia 6. Patient will need paracentesis once labs improved, recommend fluid studies including cell count, protein, fluid albumin, and cytology 7. Recommend alcohol abstinence 8. Discuss with patient she will need close outpatient follow-up within 1 week of discharge Thank you for allowing us to participate in the care of the patient, the GI service will sign off, gastroenterology will not be available at the hospital this weekend and through next week. If further evaluation by gastroenterology is required the patient will need transfer as per the primary team's discretion. Dr. Liv Alcantar I agree with the dictator's note, documented as a scribe by Valery Flaherty.
[2022-10-03] MEDS: NON FORMULARY DRUG (Brexpiprazole [Rexulti] 0.5 MG Tablet) PO SCH (11:42)
--- NOTE | 2022-10-03 13:39 | P.PN ---
Subjective Progress Note Date: 10/03/22 Hospital Course: 52-year-old female with a PMH of alcoholic cirrhosis, ongoing alcohol abuse, re cent hemorrhagic CVA, who presents to the emergency room sent in by her PCP for low hemoglobin. In the emergency room, laboratory evaluation revealed a hemoglobin of 7.3, down from 11.1 from 04/2020, MCV 129, platelet count 40, platelet count 40, lactic acid 4.0, INR 2.0, ammonia 55, AST 95, ALT 41, total bilirubin 11.2. Stool occult blood testing was negative. She is now receiving 1 unit of PRBCs, also received vitamin K. INR still supratherapeutic. Receiving unit of platelets as well as FFP. Subjective: Patient seen and examined at bedside. No acute events overnight. No active bleeding. Having multiple bowel movements. Pertinent positives and negatives as discussed above, a complete review of systems was performed and all other systems are negative. Vitals Signs Reviewed. General: Jaundiced female, no distress, appears older than stated age, normal weight Derm: no unusual rashes/lesions, warm Head: atraumatic, normocephalic, symmetric Eyes: EOMI, no lid lag, scleral icterus noted, pupils equal round reactive to light ENT: Nose and ears atraumatic Neck: No cervical lymphadenopathy, trachea midline, supple Mouth: no lip lesion, mucus membranes moist Cardiovascular: S1S2 reg, no murmur, positive dorsalis pedis pulse bilateral, 1+ mikael LE pitting edema to knees Lungs: CTA bilateral, no rhonchi, no rales, no accessory muscle use Abdominal: soft, nontender to palpation, no guarding Ext: muscle strength 4 out of 5 in all 4 extremities grossly, no gross muscle atrophy, no contractures, Neuro: CN II-XI grossly intact, no gross focal neuro deficits Psych: Somewhat slow to respond but oriented to person, place, and time Data Reviewed Today: Pertinent Labs: INR 2.3, hemoglobin 8.9, platelet 22, potassium 3.4, magnesium 1.5, creatinine 0.60 Imaging: No new imaging Assessment and Plan: Active: Pancytopenia, likely in the setting of cirrhosis and ongoing alcohol use Alcoholic cirrhosis Hepatic encephalopathy, resolved Hypokalemia Hypomagnesemia Supratherapeutic INR -Hemoglobin recovered, no active bleeding -GI signed off, outpatient follow, Lasix decreased to 40 mg daily, continue Aldactone 100 mg daily -Continue lactulose, titrated to -Given 20 mEq of oral potassium , and IV magnesium sulfate -Repeat BMP and magnesium tomorrow -FFP and 1 platelets given for GI Resolved: Lactic acidosis Chronic: Psychiatric History of hemorrhagic CVA DVT ppx: Supratherapeutic INR and thrombocytopenia Code status: full code Anticipated discharge place: pending clinical course Anticipated discharge time: pending clincal course Objective - Vital Signs Vital signs: Vital Signs Temp 98.4 F 10/03/22 13:03 Pulse 70 10/03/22 13:10 Resp 20 10/03/22 12:02 BP 90/55 10/03/22 13:10 Pulse Ox 71 L 10/03/22 12:32 FiO2 Intake & Output 10/02/22 10/03/22 10/03/22 18:59 06:59 18:59 Intake Total 1010 586 Balance 1010 586 Weight 67.132 kg Intake: Intake, IV Titration 150 Amount Sodium Chloride 0.9% 1, 150 000 ml @ 75 mls/hr IV . [id number] STA Rx#:[id number] Oral 240 236 Blood Product 620 350 Ffp 24 Cpd Unit 0 [id number] Platelet Pheresis Pas 350 Psoralen Unit [id number] Rc As-1 Unit 310 [id number] Other: Voiding Method Bedside Commode Bedside Commode # Voids 1 1 # Bowel Movements 2 1 - Labs CBC & Chem 7: 10/03/22 06:09 10/03/22 06:09 Labs: Abnormal Lab Results - Last 24 Hours (Table) 10/03/22 10/03/22 10/03/22 Range/Units 06:09 06:09 06:09 WBC 3.5 L (3.8-10.6) k/uL RBC 2.24 L (3.80-5.40) m/uL Hgb 8.9 L D (11.4-16.0) gm/dL Hct 26.8 L (34.0-46.0) % MCV 119.2 H D (80.0-100.0) fL MCH 39.8 H (25.0-35.0) pg RDW 20.6 H (11.5-15.5) % Plt Count 22 L (150-450) k/uL Lymphocytes # 0.6 L (1.0-4.8) k/uL Macrocytosis Marked A PT 22.8 H (9.0-12.0) sec INR 2.3 H (<1.2) Potassium 3.4 L (3.5-5.1) mmol/L Chloride 109 H (98-107) mmol/L BUN 5 L (7-17) mg/dL Calcium 8.2 L (8.4-10.2) mg/dL Magnesium 1.5 L (1.6-2.3) mg/dL Total Bilirubin 13.1 H (0.2-1.3) mg/dL AST 83 H (14-36) U/L ALT 41 H (4-34) U/L Albumin 3.2 L (3.5-5.0) g/dL
[2022-10-03] MEDS: MAGNESIUM SULFATE-D5W PMX 1 GM in DEXTROSE/WATER 1 100ML.BAG IVPB SCH ×2 (15:46→16:39)
[2022-10-04 07:30] LABS: Anisocytosis Moderate; Basophils % (A) 0 %; Eosinophils # (A) 0.1 k/uL (0-0.7); Eosinophils % (A) 3 %; HGB 7.6 gm/dL (11.4-16.0); Lymphocytes # (A) 0.8 k/uL (1.0-4.8); Lymphocytes % (A) 20 %; MCH 40.1 pg (25.0-35.0); MCHC 34.5 g/dL (31.0-37.0); MCV 116.3 fL (80.0-100.0); Macrocytosis Marked; Mean Platelet Volume 9.1; Monocytes # (A) 0.3 k/uL (0-1.0); Monocytes % (A) 6 %; Neutrophils # (A) 2.7 k/uL (1.3-7.7); Neutrophils % (A) 67 %; Poikilocytosis Slight; RDW 20.2 % (11.5-15.5)
[2022-10-04 07:35] LABS: Platelet Count 48 k/uL (150-450)
[2022-10-04 07:36] LABS: ALT 36 U/L (4-34); AST 76 U/L (14-36); African American GFR (CKD) >90 (>60 ml/min/1.73 sqM); Albumin 2.9 g/dL (3.5-5.0); Albumin/Globulin Ratio 0.7; Alkaline Phosphatase 123 U/L (38-126); Anion Gap 6 mmol/L; Blood Urea Nitrogen 7 mg/dL (7-17); Calcium 7.8 mg/dL (8.4-10.2); Carbon Dioxide 26 mmol/L (22-30); Chloride 106 mmol/L (98-107); Globulin 4.1 g/dL; Glucose 89 mg/dL (74-99); Non-African American GFR(CKD) >90 (>60 ml/min/1.73 sqM); Potassium 3.8 mmol/L (3.5-5.1); Sodium 138 mmol/L (137-145); Total Bilirubin 9.6 mg/dL (0.2-1.3)
[2022-10-04 07:41] LABS: INR 2.1 (<1.2); Prothrombin Time 20.3 sec (9.0-12.0)
[2022-10-04 07:46] VITALS: PULSE 74
[2022-10-04] MEDS ORDERED: FUROSEMIDE 40 MG TAB PO SCH (09:00)
[2022-10-04] MEDS: FLUoxetine HCL 20 MG CAP PO SCH (10:00)
[2022-10-04] MEDS: NICOTINE 21MG/24HR PATCH TRANSDERM SCH (10:00)
[2022-10-04] MEDS: SPIRONOLACTONE 25 MG TAB PO SCH (10:00)
[2022-10-04] MEDS: THIAMINE 100 MG TAB PO SCH (10:01)
[2022-10-04] MEDS: ASCORBIC ACID 500 MG TAB PO SCH (10:01)
[2022-10-04] MEDS: POTASSIUM CHLORIDE ER 10 MEQ TAB.ER.PRT PO SCH (10:01)
[2022-10-04] MEDS: PANTOPRAZOLE 40 MG TABLET PO SCH (10:01)
[2022-10-04] MEDS: FERROUS SULFATE 325 MG TAB PO SCH (10:01)
[2022-10-04] MEDS: LACTULOSE 20 GM/30 ML CUP PO SCH (10:01)
[2022-10-04] MEDS: NON FORMULARY DRUG (Brexpiprazole [Rexulti] 0.5 MG Tablet) PO SCH (10:02)
[2022-10-04] MEDS: PROPRANOLOL 10 MG TAB PO SCH (10:02)
[2022-10-04] MEDS: lamoTRIgine 25 MG TAB PO SCH (10:03)
[2022-10-04 13:23] LABS: Anisocytosis Slight; Basophils % (A) 0 %; Eosinophils # (A) 0.1 k/uL (0-0.7); Eosinophils % (A) 3 %; HCT 23.3 % (34.0-46.0); HGB 7.8 gm/dL (11.4-16.0); Hypochromasia Moderate; Lymphocytes # (A) 0.9 k/uL (1.0-4.8); Lymphocytes % (A) 18 %; MCH 40.6 pg (25.0-35.0); MCHC 33.6 g/dL (31.0-37.0); MCV 120.8 fL (80.0-100.0); Macrocytosis Marked; Mean Platelet Volume 9.4; Monocytes # (A) 0.4 k/uL (0-1.0); Monocytes % (A) 8 %; Neutrophils # (A) 3.5 k/uL (1.3-7.7); Neutrophils % (A) 68 %; Poikilocytosis Slight; RBC 1.93 m/uL (3.80-5.40); RDW 19.6 % (11.5-15.5); WBC 5.1 k/uL (3.8-10.6)
[2022-10-04 13:25] LABS: Platelet Count 51 k/uL (150-450)
--- NOTE | 2022-10-04 14:21 | P.DS ---
Providers Date of admission: 10/01/22 20:10 Expected date of discharge: 10/04/22 Attending physician: Armin García MD Consults: 10/01/22 20:45 Consult Physician Urgent Consulting Provider: Juliana Alcantar Consult Reason/Comments: Cirrhosis, ascites Do you want consulting provider notified?: Yes Primary care physician: Nick Jo Hospital Course: Discharge Diagnosis: Pancytopenia in the setting of cirrhosis Alcoholic cirrhosis Hepatic encephalopathy Hypokalemia Hypomagnesemia Supratherapeutic INR Hospital Course: 52-year-old female with a PMH of alcoholic cirrhosis, ongoing alcohol abuse, recent hemorrhagic CVA, who presents to the emergency room sent in by her PCP for low hemoglobin. In the emergency room, laboratory evaluation revealed a hemoglobin of 7.3, down from 11.1 from 04/2020, MCV 129, platelet count 40, platelet count 40, lactic acid 4.0, INR 2.0, ammonia 55, AST 95, ALT 41, total bilirubin 11.2. Stool occult blood testing was negative. GI was consulted. She received 1 unit of PRBCs, vitamin K, 1 unit of platelets as well as FFP. Hemoglobin and platelet counts no stable. Patient denies any active bleeding. Patient being discharged on diuretics as well as lactulose. Follow-up with GI. Mental status normal at the time of discharge. Patient seen and examined at bedside. Vital signs reviewed and stable. General: nontoxic, no distress, appears at stated age Derm: warm, dry, profoundly jaundice Head: atraumatic, normocephalic, symmetric Eyes: EOMI, no lid lag, anicteric sclera Mouth: no lip lesion, mucus membranes moist Cardiovascular: S1S2 reg, no murmur Lungs: CTA bilateral, no rhonchi, no rales , no accessory muscle use Abdominal: soft, nontender to palpation, no guarding, no appreciable organomegaly Ext: no gross muscle atrophy, trace peripheral edema, no contractures Neuro: CN II-XI grossly intact, no focal neuro deficits Psych: Alert, oriented, appropriate affect A total of minutes of time were spent preparing this complex discharge summary. Patient was discharged on . Patient Condition at Discharge: Stable Plan - Discharge Summary Discharge Rx Participant: No New Discharge Prescriptions: New Spironolactone [Aldactone] 100 mg PO DAILY #30 tab Lactulose [Cephulac] 30 gm PO TID #120 ml Furosemide [Lasix] 40 mg PO DAILY #30 tab Continue Midodrine HCl [ProAmantine] 2.5 mg PO Q8H PRN PRN Reason: Low BP FLUoxetine HCL [PROzac] 40 mg PO DAILY lamoTRIgine [LaMICtal] 25 mg PO BID Potassium Chloride ER [K-Dur 10] 10 meq PO DAILY Ascorbic Acid [Vitamin C] 500 mg PO DAILY Propranolol [Inderal] 10 mg PO BID Ferrous Sulfate [Iron (65 MG Elemental)] 325 mg PO TID Thiamine [Vitamin B-1] 100 mg PO DAILY Pantoprazole Sodium [Protonix] 40 mg PO DAILY Co Q-10 100mg 1 tab PO DAILY Brexpiprazole [Rexulti] 0.5 mg PO DAILY Discontinued Spironolactone [Aldactone] 50 mg PO DAILY #30 tab Furosemide [Lasix] 20 mg PO DAILY Discharge Medication List Ascorbic Acid [Vitamin C] 500 mg PO DAILY 10/01/22 [History] Brexpiprazole [Rexulti] 0.5 mg PO DAILY 10/01/22 [History] Co Q-10 100mg 1 tab PO DAILY 10/01/22 [History] FLUoxetine HCL [PROzac] 40 mg PO DAILY 10/01/22 [History] Ferrous Sulfate [Iron (65 MG Elemental)] 325 mg PO TID 10/01/22 [History] Midodrine HCl [ProAmantine] 2.5 mg PO Q8H PRN 10/01/22 [History] Pantoprazole Sodium [Protonix] 40 mg PO DAILY 10/01/22 [History] Potassium Chloride ER [K-Dur 10] 10 meq PO DAILY 10/01/22 [History] Propranolol [Inderal] 10 mg PO BID 10/01/22 [History] Thiamine [Vitamin B-1] 100 mg PO DAILY 10/01/22 [History] lamoTRIgine [LaMICtal] 25 mg PO BID 10/01/22 [History] Furosemide [Lasix] 40 mg PO DAILY #30 tab 10/04/22 [Rx] Lactulose [Cephulac] 30 gm PO TID #120 ml 10/04/22 [Rx] Spironolactone [Aldactone] 100 mg PO DAILY #30 tab 10/04/22 [Rx] Follow up Appointment(s)/Referral(s): Nick Jo [Primary Care Provider] - 1-2 days Danay Cantu NPC [REFERRING] - 1 Week (Gastroenterology) Juliana Alcantar MD [STAFF PHYSICIAN] - 1 Week Patient Instructions/Handouts: Cirrhosis (DC), Anemia (DC), Alcohol Dependence (DC) Activity/Diet/Wound Care/Special Instructions: Please see GI and PCP. Discharge Disposition: HOME SELF-CARE
[2022-10-04 14:37] VITALS: BP 94/63; RESP 15; TEMP 98.6
== END 2022-10-04 16:00 | disposition home or self-care (01) | DRG 813 ==
LOC: EC 14:22 → 5NMEDONC 20:10 → 4SSUR 10-02 03:36
PROVIDERS: ADMIT Internal Medicine; ATTEND Internal Medicine
PROC: 30233N1 Transfusion of Nonautologous Red Blood Cells into Peripheral Vein, Percutaneous Approach (ICD-10-PCS; 2022-10-02)
PROC: 30233K1 Transfusion of Nonautologous Frozen Plasma into Peripheral Vein, Percutaneous Approach (ICD-10-PCS; principal; 2022-10-03)
PROC: 30233R1 Transfusion of Nonautologous Platelets into Peripheral Vein, Percutaneous Approach (ICD-10-PCS; 2022-10-03)
PROC: 6A550Z2 Pheresis of Platelets, Single (ICD-10-PCS; 2022-10-03)
DX: D68.9 Coagulation defect, unspecified (principal); D61.818 Other pancytopenia; E87.20 Acidosis, unspecified; K70.40 Alcoholic hepatic failure without coma; K76.82 Hepatic encephalopathy; K70.31 Alcoholic cirrhosis of liver with ascites; F10.10 Alcohol abuse, uncomplicated; F17.210 Nicotine dependence, cigarettes, uncomplicated; E87.6 Hypokalemia; E83.42 Hypomagnesemia; Z71.41 Alcohol abuse counseling and surveillance of alcoholic; Z87.19 Personal history of other diseases of the digestive system; Z79.01 Long term (current) use of anticoagulants; Z86.73 Personal history of transient ischemic attack (TIA), and cerebral infarction without residual deficits; Z79.899 Other long term (current) drug therapy; Z88.0 Allergy status to penicillin; Z88.2 Allergy status to sulfonamides; Z91.018 Allergy to other foods
CPT/HCPCS: 36415; 76705; 80053; 80143; 82140; 82272; 82607; 82747; 83605; 83690; 83735; 85025; 85027; 85610; 85730; 86850; 86900; 86901; 86920; 96360; 99285

== ENCOUNTER 2022-12-02 02:18 | Inpatient (IN) | payer OTHER ==
[2022-12-02] MEDS ORDERED: SODIUM CHLORIDE 0.9% 500 ML 500 ML IV STA (02:43)
[2022-12-02] MEDS ORDERED: OCTREOTIDE 100 MCG/ML INJ IVP STA (02:43)
[2022-12-02] MEDS ORDERED: PANTOPRAZOLE 40 MG/10 ML VIAL IVP STA (02:43)
--- NOTE | 2022-12-02 02:58 | ED ---
GI Bleed HPI - General Chief complaint: GI Bleed Stated complaint: Vomiting blood Time Seen by Provider: 12/02/22 02:21 Source: patient, RN notes reviewed, old records reviewed Mode of arrival: ambulatory Limitations: no limitations - History of Present Illness Initial comments: This is a 50-year-old female DF for evaluation today. Patient Dese for richard luation of nausea and vomiting vomiting blood. Patient has significant vomiting no blood even here in the emergency department with Dr. ruiz at home he states he was bright red. Does have history of liver disease with ascites but no history of varices been the patient. No current significant abdominal pain, patient does not feel lightheaded dizzy or weak. Patient is on blood thinners MD complaint: blood streaked emesis, gross hematemesis -: hour(s) Severity scale (1-10): 3 Quality: painless Consistency: intermittent Improves with: none Worsens with: none Context: history of GI bleed, liver disease, alcohol abuse (O history of varices) Associated Symptoms: nausea, vomiting - Related Data Home Medications Medication Instructions Recorded Confirmed Brexpiprazole [Rexulti] 0.5 mg PO DAILY 10/01/22 12/02/22 FLUoxetine HCL [PROzac] 40 mg PO DAILY 10/01/22 12/02/22 Midodrine HCl [ProAmantine] 2.5 mg PO Q8H PRN 10/01/22 12/02/22 Pantoprazole Sodium [Protonix] 40 mg PO DAILY 10/01/22 12/02/22 Potassium Chloride ER [K-Dur 10] 10 meq PO DAILY 10/01/22 12/02/22 Propranolol [Inderal] 10 mg PO BID 10/01/22 12/02/22 Thiamine [Vitamin B-1] 100 mg PO DAILY 10/01/22 12/02/22 lamoTRIgine [LaMICtal] 25 mg PO BID 10/01/22 12/02/22 Ubidecarenone [Coenzyme Q10] 100 mg PO DAILY 12/02/22 12/02/22 Previous Rx's Medication Instructions Recorded Furosemide [Lasix] 40 mg PO DAILY #30 tab 10/04/22 Lactulose [Cephulac] 30 gm PO TID #120 ml 10/04/22 Spironolactone [Aldactone] 100 mg PO DAILY #30 tab 10/04/22 Levofloxacin [Levaquin] 500 mg PO DAILY 1 Days #3 tab 12/04/22 Phytonadione Oral [Vitamin K Oral] 5 mg PO DAILY #15 ml 12/04/22 Allergies Allergy/AdvReac Type Severity Reaction Status Date / Time Penicillins Allergy Swelling Verified 12/02/22 07:34 tongue Sulfa (Sulfonamide Allergy Swelling Verified 12/02/22 07:34 Antibiotics) tongue walnut Allergy Anaphylaxis Verified 12/02/22 07:34 Review of Systems ROS Statement: Those systems with pertinent positive or pertinent negative responses have been documented in the HPI. ROS Other: All systems not noted in ROS Statement are negative. Past Medical History Past Medical History: Asthma, Liver Disease Additional Past Medical History / Comment(s): ascites,paracentesis 01-08-18, low platelets, previous ETOH abuse History of Any Multi-Drug Resistant Organisms: None Reported Past Surgical History: No Surgical Hx Reported Additional Past Surgical History / Comment(s): repair to spleen [place] Ruptured spleen in 1988 Past Anesthesia/Blood Transfusion Reactions: No Reported Reaction Additional Past Anesthesia/Blood Transfusion Reaction / Comment(s): pt not sure if had blood transfusion in past Past Psychological History: Anxiety, Bipolar, Depression Smoking Status: Current every day smoker Past Alcohol Use History: None Reported Past Drug Use History: Marijuana - Past Family History Sister(s) Additional Family Medical History / Comment(s): closed head injury Mother Family Medical History: Diabetes Mellitus, Hyperlipidemia General Exam Limitations: no limitations General appearance: alert, in no apparent distress, anxious Head exam: Present: atraumatic, normocephalic, normal inspection Eye exam: Present: normal appearance, PERRL, EOMI. Absent: scleral icterus, conjunctival injection, periorbital swelling ENT exam: Present: normal exam, mucous membranes moist Neck exam: Present: normal inspection. Absent: tenderness, meningismus, lymphadenopathy Respiratory exam: Present: normal lung sounds bilaterally. Absent: respiratory distress, wheezes, rales, rhonchi, stridor Cardiovascular Exam: Present: regular rate, normal rhythm, normal heart sounds. Absent: systolic murmur, diastolic murmur, rubs, gallop, clicks GI/Abdominal exam: Present: soft, normal bowel sounds. Absent: distended, tenderness, guarding, rebound, rigid Extremities exam: Present: normal inspection, full ROM, normal capillary refill. Absent: tenderness, pedal edema, joint swelling, calf tenderness Back exam: Present: normal inspection Neurological exam: Present: alert, oriented X3, CN II-XII intact Psychiatric exam: Present: normal affect, normal mood Skin exam: Present: warm, dry, intact, normal color. Absent: rash Course Vital Signs 12/02/22 12/02/22 12/02/22 02:25 03:27 04:27 Temperature 97.8 F Pulse Rate 88 86 88 Pulse Rate [ Pulse Oximetery ] Respiratory 18 18 18 Rate Blood Pressure 120/79 113/79 116/77 Blood Pressure [Right Arm] O2 Sat by Pulse 96 98 98 Oximetry 12/02/22 12/02/22 12/02/22 05:19 05:25 05:49 Temperature 97.8 F 97.9 F Pulse Rate 87 Pulse Rate [ 87 87 Pulse Oximetery ] Respiratory 17 18 17 Rate Blood Pressure 107/67 Blood Pressure 122/70 [Right Arm] O2 Sat by Pulse 98 94 L Oximetry - Reevaluation(s) Reevaluation #1: 12/02/22 05:05 Record is reviewed Reevaluation #2: 12/02/22 05:05 no current active vomiting of blood Reevaluation #3: 12/02/22 05:05 Patient informed results and questions answered Reevaluation #4: 12/02/22 02:57 Was pt. sent in by a medical professional or institution (Dr. PA, PRESS OPERATOR ASSISTANT, urgent care, hospital, or senior living...) When possible be specific @ -no Did you speak to anyone other than the patient for history (EMS, parent, family, police, friend...)? What history was obtained from this source @ -no Did you review nursing and triage notes (agree or disagree)? Why? @ -agree Are old charts reviewed (outside hosp., previous admission, EMS record, old EKG, old radiological studies, urgent care reports/EKG's, senior living records)? Report findings @ -yes Differential Diagnosis (chest pain, altered mental status, abdominal pain women, abdominal pain men, vaginal bleeding, weakness, fever, dyspnea, syncope, headache, dizziness, GI bleed, back pain, seizure, CVA, palpatations, mental health, musculoskeletal)? @ -prior EKG interpreted by me (3pts min.). @ -no X-rays interpreted by me (1pt min.). @ -no CT interpreted by me (1pt min.). @ -no U/S interpreted by me (1pt. min.). @ -no What testing was considered but not performed or refused? (CT, X-rays, U/S, labs)? Why? @ -none What meds were considered but not given or refused? Why? @ -none Did you discuss the management of the patient with other professionals (prof monique i.e. , PA, PRESS OPERATOR ASSISTANT, lab, RT, psych nurse, social security assessor, immigration lawyer, teacher, financial services officer, case consultant)? Give summary @ -no Was smoking cessation discussed for >3mins.? @ -no Was critical care preformed (if so, how long)? @ -no Were there social determinants of health that impacted care today? How? (Homelessness, low income, unemployed, alcoholism, drug addiction, transportation, low edu. Level, literacy, decrease access to med. care, intermediate, rehab)? @ -none Was there de-escalation of care discussed even if they declined (Discuss DNR or withdrawal of care, Hospice)? DNR status @ -no What co-morbidities impacted this encounter? (DM, HTN, Smoking, COPD, CAD, Cancer, CVA, ARF, Chemo, Hep., AIDS, mental health diagnosis, sleep apnea, morbid obesity)? @ -none Was patient admitted / discharged? Hospital course, mention meds given and route, prescriptions, significant lab abnormalities, going to OR and other pertinent info. @ - 52 female to the emergency department to the emergency department for upper GI bleed with history of alcohol disease with ascites and liver disease, cir rhosis. Discharge Undiagnosed new problem with uncertain prognosis? @ -no Drug Therapy requiring intensive monitoring for toxicity (Heparin, Nitro, Insulin, Cardizem)? @ -no Were any procedures done? @ -no Diagnosis/symptom? @ -Cirrhosis, hepatic and cephalopathy, GI bleed Acute, or Chronic, or Acute on Chronic? @ -Acute Uncomplicated (without systemic symptoms) or Complicated (systemic symptoms)? @ -Complicated Side effects of treatment? @ -no Exacerbation, Progression, or Severe Exacerbation? @ -exacerbation Poses a threat to life or bodily function? How? (Chest pain, [place], AL, pneumonia, PE, COPD, DKA, ARF, appy, cholecystitis, CVA, Diverticulitis, Homicidal, Suicidal, threat to staff... and all critical care pts) @ -yes - Consultations Consultation #1: Spoke with [facility] we'll admit this patient we do have GI services today Medical Decision Making - Medical Decision Making 52 female to the emergency department to the emergency department for upper GI bleed with history of alcohol disease with ascites and liver disease, cirrhosis. - Lab Data Result diagrams: 12/04/22 05:51 12/04/22 05:51 Lab Results 12/02/22 12/02/22 12/02/22 Range/Units 02:45 02:51 02:51 WBC 6.7 (3.8-10.6) k/uL RBC 2.85 L (3.80-5.40) m/uL Hgb 10.9 L D (11.4-16.0) gm/dL Hct 32.0 L (34.0-46.0) % MCV 112.2 H D (80.0-100.0) fL MCH 38.2 H (25.0-35.0) pg MCHC 34.1 (31.0-37.0) g/dL RDW 13.4 (11.5-15.5) % Plt Count 33 L (150-450) k/uL MPV 9.0 Neutrophils % 69 % Lymphocytes % 17 % Monocytes % 7 % Eosinophils % 4 % Basophils % 0 % Neutrophils # 4.6 (1.3-7.7) k/uL Lymphocytes # 1.1 (1.0-4.8) k/uL Monocytes # 0.5 (0-1.0) k/uL Eosinophils # 0.2 (0-0.7) k/uL Basophils # 0.0 (0-0.2) k/uL Manual Slide Review Performed Poikilocytosis (manual Present Anisocytosis (manual) Present Macrocytosis Marked A Fragmented RBCs Present APTT 31.8 H (22.0-30.0) sec Sodium (137-145) mmol/L Potassium (3.5-5.1) mmol/L Chloride (98-107) mmol/L Carbon Dioxide (22-30) mmol/L Anion Gap mmol/L BUN (7-17) mg/dL Creatinine (0.52-1.04) mg/dL Est GFR (CKD-EPI)AfAm (>60 ml/min/1.73 sqM) Est GFR (CKD-EPI)NonAf (>60 ml/min/1.73 sqM) Glucose (74-99) mg/dL Calcium (8.4-10.2) mg/dL Magnesium (1.6-2.3) mg/dL Iron (50-170) UG/DL TIBC (228-460) UG/DL % Saturation (12.00-45.00) Transferrin (204.0-354.0) mg/dL Ferritin (10.0-291.0) ng/mL Total Bilirubin (0.2-1.3) mg/dL AST (14-36) U/L ALT (4-34) U/L Alkaline Phosphatase (38-126) U/L Ammonia (<30) umol/L Troponin I (0.000-0.034) ng/mL Total Protein (6.3-8.2) g/dL Albumin (3.5-5.0) g/dL Lipase (23-300) U/L Gastric Occult Blood (Negative) Serum Alcohol mg/dL Blood Type A Positive Blood Type Recheck A Pos Bld Type Recheck Status No Antibody Screen NEGATIVE Spec Expiration Date 12/05/2022 - 234412/02/22 12/02/22 12/02/22 Range/Units 02:51 02:51 02:51 WBC (3.8-10.6) k/uL RBC (3.80-5.40) m/uL Hgb (11.4-16.0) gm/dL Hct (34.0-46.0) % MCV (80.0-100.0) fL MCH (25.0-35.0) pg MCHC (31.0-37.0) g/dL RDW (11.5-15.5) % Plt Count (150-450) k/uL MPV Neutrophils % % Lymphocytes % % Monocytes % % Eosinophils % % Basophils % % Neutrophils # (1.3-7.7) k/uL Lymphocytes # (1.0-4.8) k/uL Monocytes # (0-1.0) k/uL Eosinophils # (0-0.7) k/uL Basophils # (0-0.2) k/uL Manual Slide Review Poikilocytosis (manual Anisocytosis (manual) Macrocytosis Fragmented RBCs APTT (22.0-30.0) sec Sodium 136 L (137-145) mmol/L Potassium 3.9 (3.5-5.1) mmol/L Chloride 100 (98-107) mmol/L Carbon Dioxide 31 H (22-30) mmol/L Anion Gap 5 mmol/L BUN 14 (7-17) mg/dL Creatinine 0.88 (0.52-1.04) mg/dL Est GFR (CKD-EPI)AfAm 88 (>60 ml/min/1.73 sqM) Est GFR (CKD-EPI)NonAf 76 (>60 ml/min/1.73 sqM) Glucose 92 (74-99) mg/dL Calcium 8.7 (8.4-10.2) mg/dL Magnesium 1.8 (1.6-2.3) mg/dL Iron (50-170) UG/DL TIBC (228-460) UG/DL % Saturation (12.00-45.00) Transferrin (204.0-354.0) mg/dL Ferritin (10.0-291.0) ng/mL Total Bilirubin 10.1 H (0.2-1.3) mg/dL AST 87 H (14-36) U/L ALT 50 H (4-34) U/L Alkaline Phosphatase 179 H (38-126) U/L Ammonia 46 H (<30) umol/L Troponin I 0.013 (0.000-0.034) ng/mL Total Protein 7.5 (6.3-8.2) g/dL Albumin 3.1 L (3.5-5.0) g/dL Lipase 381 H (23-300) U/L Gastric Occult Blood (Negative) Serum Alcohol mg/dL Blood Type Blood Type Recheck Bld Type Recheck Status Antibody Screen Spec Expiration Date 12/02/22 12/02/22 12/02/22 Range/Units 02:51 03:12 03:12 WBC (3.8-10.6) k/uL RBC (3.80-5.40) m/uL Hgb (11.4-16.0) gm/dL Hct (34.0-46.0) % MCV (80.0-100.0) fL MCH (25.0-35.0) pg MCHC (31.0-37.0) g/dL RDW (11.5-15.5) % Plt Count (150-450) k/uL MPV Neutrophils % % Lymphocytes % % Monocytes % % Eosinophils % % Basophils % % Neutrophils # (1.3-7.7) k/uL Lymphocytes # (1.0-4.8) k/uL Monocytes # (0-1.0) k/uL Eosinophils # (0-0.7) k/uL Basophils # (0-0.2) k/uL Manual Slide Review Poikilocytosis (manual Anisocytosis (manual) Macrocytosis Fragmented RBCs APTT (22.0-30.0) sec Sodium (137-145) mmol/L Potassium (3.5-5.1) mmol/L Chloride (98-107) mmol/L Carbon Dioxide (22-30) mmol/L Anion Gap mmol/L BUN (7-17) mg/dL Creatinine (0.52-1.04) mg/dL Est GFR (CKD-EPI)AfAm (>60 ml/min/1.73 sqM) Est GFR (CKD-EPI)NonAf (>60 ml/min/1.73 sqM) Glucose (74-99) mg/dL Calcium (8.4-10.2) mg/dL Magnesium (1.6-2.3) mg/dL Iron 211 H (50-170) UG/DL TIBC 232 (228-460) UG/DL % Saturation 90.95 H (12.00-45.00) Transferrin 166.0 L (204.0-354.0) mg/dL Ferritin 568.0 H (10.0-291.0) ng/mL Total Bilirubin (0.2-1.3) mg/dL AST (14-36) U/L ALT (4-34) U/L Alkaline Phosphatase (38-126) U/L Ammonia (<30) umol/L Troponin I (0.000-0.034) ng/mL Total Protein (6.3-8.2) g/dL Albumin (3.5-5.0) g/dL Lipase (23-300) U/L Gastric Occult Blood Positive (Negative) Serum Alcohol <10 mg/dL Blood Type Blood Type Recheck Bld Type Recheck Status Antibody Screen Spec Expiration Date Disposition Clinical Impression: Elevated liver enzymes, Ascites, Cirrhosis of liver, Hepatic encephalopathy, Upper gastrointestinal hemorrhage Disposition: ADMITTED IP TO THIS HOSP Condition: Serious Is patient prescribed a controlled substance at d/c from ED?: No Time of Disposition: 05:00
[2022-12-02] MEDS: ONDANSETRON 4 MG/2 ML VIAL IVP STA ×2 (03:01→03:06)
[2022-12-02 03:24] LABS: ALT 50 U/L (4-34); AST 87 U/L (14-36); African American GFR (CKD) 88 (>60 ml/min/1.73 sqM); Albumin 3.1 g/dL (3.5-5.0); Alkaline Phosphatase 179 U/L (38-126); Anion Gap 5 mmol/L; Blood Urea Nitrogen 14 mg/dL (7-17); Calcium 8.7 mg/dL (8.4-10.2); Carbon Dioxide 31 mmol/L (22-30); Chloride 100 mmol/L (98-107); Glucose 92 mg/dL (74-99); Lipase 381 U/L (23-300); Magnesium 1.8 mg/dL (1.6-2.3); Non-African American GFR(CKD) 76 (>60 ml/min/1.73 sqM); Potassium 3.9 mmol/L (3.5-5.1); Sodium 136 mmol/L (137-145); Total Bilirubin 10.1 mg/dL (0.2-1.3); Total Protein 7.5 g/dL (6.3-8.2)
[2022-12-02 03:58] LABS: Basophils % (A) 0 %; Eosinophils # (A) 0.2 k/uL (0-0.7); Eosinophils % (A) 4 %; Lymphocytes # (A) 1.1 k/uL (1.0-4.8); Lymphocytes % (A) 17 %; MCH 38.2 pg (25.0-35.0); MCHC 34.1 g/dL (31.0-37.0); Macrocytosis Marked; Monocytes # (A) 0.5 k/uL (0-1.0); Monocytes % (A) 7 %; Neutrophils # (A) 4.6 k/uL (1.3-7.7); Neutrophils % (A) 69 %; RBC 2.85 m/uL (3.80-5.40); RDW 13.4 % (11.5-15.5); WBC 6.7 k/uL (3.8-10.6)
[2022-12-02 04:00] LABS: HGB 10.9 gm/dL (11.4-16.0)
[2022-12-02 04:01] LABS: MCV 112.2 fL (80.0-100.0)
[2022-12-02 04:18] LABS: Anisocytosis (M) Present; Poikilocytosis (M) Present
[2022-12-02 04:19] LABS: RBC Fragments Present
[2022-12-02 04:20] LABS: Platelet Count 33 k/uL (150-450)
[2022-12-02] MEDS ORDERED: ONDANSETRON 4 MG/2 ML VIAL IVP PRN (05:03)
[2022-12-02] MEDS ORDERED: NALOXONE 0.4 MG/ML 1 ML VIAL IV PRN (05:03)
[2022-12-02] MEDS: SODIUM CHLORIDE 0.9% 1,000 ML IV SCH (05:57)
[2022-12-02] MEDS: PANTOPRAZOLE 40 MG/10 ML VIAL IV SCH ×2 (08:11→21:49)
[2022-12-02 09:46] LABS: INR 2.3 (<1.2); Prothrombin Time 22.3 sec (9.0-12.0)
--- NOTE | 2022-12-02 10:21 | P.CONS ---
History of Present Illness - Reason for Consult Consult date: 12/02/22 GI bleed Requesting physician: Rubio Dueñas - Chief Complaint Hematemesis - History of Present Illness This is a pleasant 52-year-old female with a known history of alcoholic liver disease. Patient was recently admitted to the hospital in September of this year with hepatic encephalopathy, ascites, and on transaminitis. She states around 2 AM she vomited moderate amount of bright red blood. She does have a history of esophageal varices. Last EGD Dr. Alcantar in January 2020 with findings of large mid/distal esophageal varices and moderate severe portal hypertensive gastropathy. Patient denies any abdominal pain, any further nausea or vomiting. No further hematemesis. She she does state that she has been taking her medications other than her lactulose which he ran out about 3 days ago. Denies any further alcohol use. Last alcohol use was about 2 months ago. Patient denies knowing that she was jaundiced. States her urine has been normal color. Admitting labs WBC 6.7 hemoglobin 10.9 hematocrit 32 platelet count 33,000 INR 2.3 Sodium 136 potassium 3.9 B1 14 creatinine 0.8 total bilirubin 10.0 AST 87 AST 50 alkaline phosphatase 179 ammonia 46 lipase 381 Review of Systems REVIEW OF SYSTEMS: CARDIOPULMONARY: No chest pain or shortness of breath. Gastrointestinal: Denies any epigastric pain, no abdominal pain. No nausea or vomiting at this time. Had episode of hematemesis, moderate amount of bright red blood. No rectal bleeding, or melena. GENITOURINARY: No dysuria or hematuria. MUSCULOSKELETAL: Reports normal range of motion. SKIN: No rashes. No jaundice. ENDOCRINE: No chills, fevers. No excessive weight gain or loss. No polydipsia or polyuria. PSYCHIATRIC: Unremarkable. NEUROLOGY: No change in mental status. Denies dizziness, headache. ENT: Vision unremarkable. CONSTITUTIONAL: No recent weight loss. No fever, chills, night sweats. Past Medical History Past Medical History: Asthma, Liver Disease Additional Past Medical History / Comment(s): ascites,paracentesis 01-08-18, low platelets, previous ETOH abuse states she quit drinking in July 2022 History of Any Multi-Drug Resistant Organisms: None Reported Past Surgical History: No Surgical Hx Reported Additional Past Surgical History / Comment(s): repair to spleen [place] Ruptured spleen in 1988 Past Anesthesia/Blood Transfusion Reactions: No Reported Reaction Additional Past Anesthesia/Blood Transfusion Reaction / Comm: pt not sure if had blood transfusion in past Past Psychological History: Anxiety, Bipolar, Depression Smoking Status: Current every day smoker Past Alcohol Use History: Abuse Additional Past Alcohol Use History / Comment(s): Stated she drank frequently for far to long and quit in July of 2022 Past Drug Use History: Marijuana Additional Drug Use History / Comment(s): Previous marijuana use; Smokes a pack a day of cigarettes - Past Family History Sister(s) Additional Family Medical History / Comment(s): closed head injury Mother Family Medical History: Diabetes Mellitus, Hyperlipidemia Medications and Allergies Home Medications Medication Instructions Recorded Confirmed Type Ascorbic Acid [Vitamin C] 500 mg PO DAILY 10/01/22 12/02/22 History Brexpiprazole [Rexulti] 0.5 mg PO DAILY 10/01/22 12/02/22 History FLUoxetine HCL [PROzac] 40 mg PO DAILY 10/01/22 12/02/22 History Ferrous Sulfate [Iron (65 MG 325 mg PO TID 10/01/22 12/02/22 History Elemental)] Midodrine HCl [ProAmantine] 2.5 mg PO Q8H PRN 10/01/22 12/02/22 History Pantoprazole Sodium [Protonix] 40 mg PO DAILY 10/01/22 12/02/22 History Potassium Chloride ER [K-Dur 10] 10 meq PO DAILY 10/01/22 12/02/22 History Propranolol [Inderal] 10 mg PO BID 10/01/22 12/02/22 History Thiamine [Vitamin B-1] 100 mg PO DAILY 10/01/22 12/02/22 History lamoTRIgine [LaMICtal] 25 mg PO BID 10/01/22 12/02/22 History Furosemide [Lasix] 40 mg PO DAILY #30 tab 10/04/22 12/02/22 Rx Lactulose [Cephulac] 30 gm PO TID #120 ml 10/04/22 12/02/22 Rx Spironolactone [Aldactone] 100 mg PO DAILY #30 tab 10/04/22 12/02/22 Rx Ubidecarenone [Coenzyme Q10] 100 mg PO DAILY 12/02/22 12/02/22 History Allergies Allergy/AdvReac Type Severity Reaction Status Date / Time Penicillins Allergy Swelling Verified 12/02/22 07:34 tongue Sulfa (Sulfonamide Allergy Swelling Verified 12/02/22 07:34 Antibiotics) tongue walnut Allergy Anaphylaxis Verified 12/02/22 07:34 Physical Exam Vitals: Vital Signs Temp Pulse Pulse Resp BP BP Pulse Ox 12/02/22 08:16 98.4 F 84 18 93/59 94 L 12/02/22 05:49 97.9 F 87 17 122/70 94 L 12/02/22 05:25 97.8 F 87 18 107/67 98 12/02/22 05:19 87 17 12/02/22 04:27 88 18 116/77 98 12/02/22 03:27 86 18 113/79 98 12/02/22 02:25 97.8 F 88 18 120/79 96 Intake and Output 12/01/22 12/02/22 12/02/22 22:59 06:59 14:59 Other: Voiding Method Toilet # Voids 1 Weight 66.678 kg General appearance: The patient is alert, oriented, appears in no acute distress. HET: Head is normocephalic and atraumatic. Conjunctiva pink. Sclera icteric. Neck: Supple without lymphadenopathy. Trachea midline. Heart: S1 S2. Regular rate and rhythm. Lungs: Clear to auscultation. Abdomen: Soft, nontender, nondistended with bowel sounds. No guarding or rigidity. Skin: No rashes. Jaundice. Extremities: Normal skin color and turgor. No pedal edema. Neurological: No focal deficits. Alert and oriented x3. Results CBC & Chem 7: 12/02/22 02:51 12/02/22 02:51 Labs: Abnormal Lab Results - Last 24 Hours (Table) 12/02/22 12/02/22 12/02/22 Range/Units 02:51 02:51 02:51 RBC 2.85 L (3.80-5.40) m/uL Hgb 10.9 L D (11.4-16.0) gm/dL Hct 32.0 L (34.0-46.0) % MCV 112.2 H D (80.0-100.0) fL MCH 38.2 H (25.0-35.0) pg Plt Count 33 L (150-450) k/uL Macrocytosis Marked A APTT 31.8 H (22.0-30.0) sec Sodium 136 L (137-145) mmol/L Carbon Dioxide 31 H (22-30) mmol/L Total Bilirubin 10.1 H (0.2-1.3) mg/dL AST 87 H (14-36) U/L ALT 50 H (4-34) U/L Alkaline Phosphatase 179 H (38-126) U/L Ammonia (<30) umol/L Albumin 3.1 L (3.5-5.0) g/dL Lipase 381 H (23-300) U/L 12/02/22 Range/Units 02:51 RBC (3.80-5.40) m/uL Hgb (11.4-16.0) gm/dL Hct (34.0-46.0) % MCV (80.0-100.0) fL MCH (25.0-35.0) pg Plt Count (150-450) k/uL Macrocytosis APTT (22.0-30.0) sec Sodium (137-145) mmol/L Carbon Dioxide (22-30) mmol/L Total Bilirubin (0.2-1.3) mg/dL AST (14-36) U/L ALT (4-34) U/L Alkaline Phosphatase (38-126) U/L Ammonia 46 H (<30) umol/L Albumin (3.5-5.0) g/dL Lipase (23-300) U/L Assessment and Plan (1) Hematemesis Narrative/Plan: 42-year-old female with history of known alcoholic liver disease and previous esophageal varices presented with acute hematemesis 1. No further bleeding, hemoglobin stable 10.9. Platelet count 33,000, INR 2.3. With known history of portal hypertension and varices plan is for EGD for further evaluation of esophageal varices possible banding. Current Visit: Yes Status: Acute Code(s): K92.0 - HEMATEMESIS SNOMED Code(s): 0632009 (2) Cirrhosis of liver Narrative/Plan: The patient with history of alcohol excess Restasis of the liver, history of hepatic encephalopathy presenting for hematemesis. Patient also noted to have elevated ammonia level. Patient ran out of lactulose last 3 days. She denies any further alcohol use, last call use was about 2 months ago. Patient continues with spironolactone 100 mg daily and Lasix 40 mg daily. Will reinitiate lactulose 30 g 3 times a day. Current Visit: Yes Status: Acute Code(s): K74.60 - UNSPECIFIED CIRRHOSIS OF LIVER SNOMED Code(s): 07207573 (3) Jaundice Current Visit: Yes Status: Acute Code(s): R17 - UNSPECIFIED JAUNDICE SNOMED Code(s): 62067786 (4) Thrombocytopenia Current Visit: No Status: Acute Code(s): D69.6 - THROMBOCYTOPENIA, UNSPECIFIED SNOMED Code(s): 010805131 Plan: 1. Continue symptomatic and supportive care 2. Keep nothing by mouth 3. 1 unit of platelets ordered, 2 units of FFP ordered 4. Daily CBC, transfuse for hemoglobin less than 7 5. Recommend alcohol abstinence 6. Will resume Inderal, spironolactone, Lasix, and lactulose 7. Plan for EGD this afternoon 8. Further recommendations forthcoming based on clinical course Thank you for this consultation, we will continue to follow. Dr. Liv Alcantar I agree with the dictator's note, documented as a scribe by Valery Flaherty.
[2022-12-02] MEDS: NICOTINE 14MG/24HR PATCH TRANSDERM SCH (11:56)
[2022-12-02] MEDS: SPIRONOLACTONE 25 MG TAB PO SCH (11:56)
[2022-12-02] MEDS ORDERED: PHYTONADIONE 5 MG in SODIUM CHLORIDE 0.9% 50 ML IVPB STA (13:26)
[2022-12-02] MEDS ORDERED: IV FLUID CONTINUATION 1,000 ML IV ONE (13:32)
[2022-12-02] MEDS ORDERED: MIDODRINE 5 MG TAB PO PRN (15:56)
[2022-12-02] MEDS: LACTULOSE 20 GM/30 ML CUP PO SCH ×2 (16:50→21:49)
--- NOTE | 2022-12-02 19:49 | HP ---
HISTORY AND PHYSICAL CHIEF COMPLAINT: GI bleed and hematemesis. HISTORY OF PRESENT ILLNESS: This is a 52-year-old woman with a past medical history of multiple medical problems including chronic liver disease, had a significant vomiting, and the patient came to [facility]. Blood was bright red in color. The hemoglobin is found to be 10.9. INR is also elevated. Gastroenterology evaluation is in progress at this time. The patient has thrombocytopenia. Platelet transfusion with upper endoscopy is being planned by Gastroenterology. There is no history of any fever, rigor, or chills at this time. PAST MEDICAL HISTORY: Cirrhosis of liver and asthma. Rest of the history and rest of the chart are also reviewed. HOME MEDICATIONS: Reviewed include Lamictal. Doses and rest of the medications are reviewed. ALLERGIES: Penicillin. Rest of the allergies are noted. FAMILY HISTORY: History of diabetes mellitus and hyperlipidemia. SOCIAL HISTORY: 1. History of smoking. 2. History of alcohol. REVIEW OF SYSTEMS: Fourteen-point review is negative except as mentioned earlier. PHYSICAL EXAMINATION: VITAL SIGNS: Pulse is 88, blood pressure is 101/60, respirations 16. HEENT: Conjunctivae are pale. NECK: No JVD. CARDIOVASCULAR: S1 and S2. RESPIRATORY: No rhonchi. No crackles. ABDOMEN: Soft and nontender. No mass. LEGS: No edema. NERVOUS SYSTEM: Nonfocal. LABORATORY DATA: Sodium 136. AST is 87, ALT is 50. ASSESSMENT: 1. Acute upper gastrointestinal bleeding with possible variceal bleeding and acute blood loss anemia. 2. Coagulopathy. 3. 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 4. History of asthma. 5. Multiple medical issues. 6. Anxiety and bipolar depression. RECOMMENDATIONS AND DISCUSSION: In this 52-year-old woman presented with multiple complex medical issues, we will monitor the patient closely. Recommend to monitor hemoglobin closely. Octreotide has been given. I would also recommend vitamin K. Otherwise, I would also recommend endoscopes and platelet transfusion. Prognosis is guarded because of multiple complex medical issues. We will repeat the ammonia as well. See orders for details. Further recommendations to follow. MMODL / IJN: [id number] / MTDD
[2022-12-02 21:14] LABS: % Iron Saturation 90.95 (12.00-45.00)
[2022-12-02] MEDS: PROPRANOLOL 10 MG TAB PO SCH (21:48)
[2022-12-02] MEDS: lamoTRIgine 25 MG TAB PO SCH (21:48)
[2022-12-03] MEDS: SODIUM CHLORIDE 0.9% 1,000 ML IV SCH ×3 (02:16→21:33)
[2022-12-03 06:16] LABS: INR 2.1 (<1.2); Prothrombin Time 20.2 sec (9.0-12.0)
[2022-12-03] MEDS: FUROSEMIDE 40 MG TAB PO SCH (08:44)
[2022-12-03] MEDS: SPIRONOLACTONE 25 MG TAB PO SCH (08:45)
[2022-12-03] MEDS: PANTOPRAZOLE 40 MG/10 ML VIAL IV SCH ×2 (08:45→21:32)
[2022-12-03] MEDS: lamoTRIgine 25 MG TAB PO SCH ×2 (08:45→21:32)
[2022-12-03] MEDS: NICOTINE 14MG/24HR PATCH TRANSDERM SCH (08:45)
[2022-12-03] MEDS: PROPRANOLOL 10 MG TAB PO SCH ×2 (08:46→21:33)
[2022-12-03 09:06] LABS: Magnesium 1.6 mg/dL (1.5-2.4); Phosphorus 2.6 mg/dL (2.4-5.1)
[2022-12-03 09:13] LABS: ALT 40 U/L (8-44); AST 64 U/L (13-35); Albumin 2.6 d/dL (3.8-4.9); Albumin/Globulin Ratio 0.93 Ratio (1.60-3.17); Alkaline Phosphatase 91 U/L (41-126); BUN/Creat Ratio 12.14 Ratio (12.00-20.00); Blood Urea Nitrogen 8.5 mg/dL (9.0-27.0); Carbon Dioxide 24.5 mmol/L (21.6-31.8); Chloride 109 mmol/L (96-109); Globulin 2.8 d/dL (1.6-3.3); Glucose 78 mg/dL (70-110); Potassium 3.4 mmol/L (3.5-5.5); Sodium 142 mmol/L (135-145); Total Bilirubin 9.3 mg/dL (0.3-1.2); Total Protein 5.4 d/dL (6.2-8.2)
[2022-12-03] MEDS: LACTULOSE 20 GM/30 ML CUP PO SCH ×3 (10:42→21:32)
[2022-12-03] MEDS: LEVOFLOXACIN 500MG-D5W PMX 500 MG in DEXTROSE/WATER 1 100ML.BAG IVPB SCH (10:43)
[2022-12-03 11:26] LABS: Basophils # (A) 0.05 X 10*3/uL (0.00-0.10); Basophils % (A) 1.1 %; Eosinophils # (A) 0.17 X 10*3/uL (0.04-0.35); Eosinophils % (A) 3.7 %; HCT 24.4 % (37.2-46.3); HGB 8.1 d/dL (12.0-15.0); Lymphocytes # (A) 1.02 X 10*3/uL (0.90-5.00); MCH 37.7 pg (27.0-32.0); MCHC 33.2 d/dL (32.0-37.0); MCV 113.5 FL (80.0-97.0); Mean Platelet Volume 11.3 FL (9.5-12.2); Monocytes % (A) 8.6 %; NRBC Per 100 WBC 0 X 10*3/uL (0.00-0.01); Neutrophils # (A) 2.92 X 10*3/uL (1.80-7.70); Neutrophils % (A) 63.1 %; Platelet Count 36 X 10*3/uL (140-440); RBC 2.15 X 10*6/uL (4.10-5.20); RDW 12.8 % (11.5-14.5); WBC 4.63 X 10*3/uL (4.50-10.00)
--- NOTE | 2022-12-03 11:35 | XR ---
EXAMINATION TYPE: XR chest 1V portable DATE OF EXAM: 12/03/2022 COMPARISON: NONE HISTORY: Shortness of breath TECHNIQUE: Single frontal view of the chest is obtained. FINDINGS: There is no focal air space opacity, pleural effusion, or pneumothorax seen. The cardiac silhouette size is within normal limits. The osseous structures are intact. Interstitium is slightl y coarsened but likely in the basis of chronic lung disease. Vague nodule right lower lobe measuring 7 mm. Diffuse osteopenia. IMPRESSION: 1. COPD with suspected chronic interstitial lung disease but no overt failure. 2. There is a 7 mm area of nodular density right lung base may be on the basis of nipple shadow and s uperimposed structures. Short-term follow-up PA and lateral view of the chest recommended with nipple markers.
[2022-12-03] MEDS ORDERED: LIDOCAINE 2% INJ 20 MG/ML (2 ML VIAL) ONE (13:08)
[2022-12-03] MEDS ORDERED: IV FLUID CONTINUATION 1,000 ML IV ONE (13:08)
[2022-12-03] MEDS ORDERED: PROPOFOL 10 MG/ML 20 ML VIAL IV ONE (13:08)
--- NOTE | 2022-12-03 13:26 | P.PCN ---
Date of Procedure: 12/03/22 Procedure(s) Performed: BRIEF HISTORY: Patient is a 52-year-old, pleasant, white female with history of alcoholic cirrhosis of the liver admitted hospital after having episodes of hematemesis yesterday. His hemoglobin was 10 g/dL which dropped to 8.5 g/dL. She was also noted to have elevated INR of 2.5 and hence received 2 units of FFP yesterday and 2 units today. Platelets were low at 32,000 and received platelet transfusion yesterday. Repeat platelets with only 36,000 today.. PROCEDURE PERFORMED: Esophagogastroduodenoscopy. PREOPERATIVE DIAGNOSIS: Acute upper GI bleed. IV sedation per anesthesia. PROCEDURE: After informed consent was obtained, the patient was brought into the endoscopy unit. IV sedation was administered by Anesthesia under continuous monitoring. Initially the Olympus GIF-140 video endoscope was inserted into the mouth. Esophagus intubated without any difficulty. It was gradually advanced into the stomach and duodenum and carefully examined. The bulb and the second part of the duodenum appeared normal. The scope at this time was withdrawn to the stomach, adequately insufflated with air, and upon careful examination, there was no evidence of active bleeding noted. The mucosa of the antrum, body, cardia and the fundus had changes consistent with moderate to severe portal hypertensive gastropathy. No gastric varices identified. The scope was then withdrawn into the esophagus. Small mid and distal esophageal varices seen. No active bleeding noted. The GE junction was located at 39 cm from the incisors. The esophagus appeared normal. There were no erosions or ulcerations seen and the patient tolerated the procedure well. IMPRESSION: 1. No active upper GI bleed. 2. Small mid and distal esophageal varices with no stigmata of recent bleed 3. Moderate to severe portal hypertensive gastropathy. RECOMMENDATIONS: The findings of this examination were discussed with the patient. Diet will be advanced as tolerated. Continue with Protonix 40 mg twice daily. Monitor CBC daily..
--- NOTE | 2022-12-03 18:30 | PN ---
PROGRESS NOTE DATE OF SERVICE: 12/03/2022 SUBJECTIVE: This is a 52-year-old woman, who was admitted with acute upper GI bleeding and cirrhosis of liver, underwent endoscopy with Dr. Alcantar, showed no active bleeding, but mild distal esophageal varices were noted, and portal gastropathy was also noted. Chest x-ray reviewed showed a 7 mm nodularity in the right lung base. OBJECTIVE: VITAL SIGNS: Pulse is 81, blood pressure 96/61, respirations 17. CHEST: A few scattered rhonchi. ABDOMEN: Soft. NERVOUS SYSTEM: Nonfocal. LABORATORY DATA: Hemoglobin 8.1. Rest of the labs are noted. ASSESSMENT: 1. Acute upper gastrointestinal bleeding with blood loss anemia from possible history of variceal bleeding with status post esophagogastroduodenoscopy. 2. Coagulopathy. 3. Right lung nodule. 4. 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 5. Chronic obstructive pulmonary disease and asthma. 6. Multiple medical issues. RECOMMENDATIONS: Recommend to continue current medications. Continue symptomatic treatment. Repeat labs. Continue the Protonix. Repeat chest x-ray. To be followed up in the outpatient setting. Prognosis is guarded. Further recommendations to follow. MMODL / IJN: [id number] /
[2022-12-03] MEDS: FLUoxetine HCL 20 MG CAP PO SCH (22:26)
[2022-12-04 08:19] VITALS: BP 95/59; PULSE 83; RESP 14; TEMP 98.1
[2022-12-04] MEDS: NICOTINE 14MG/24HR PATCH TRANSDERM SCH (08:32)
[2022-12-04] MEDS: FUROSEMIDE 40 MG TAB PO SCH (08:32)
[2022-12-04] MEDS: lamoTRIgine 25 MG TAB PO SCH (08:32)
[2022-12-04] MEDS: PANTOPRAZOLE 40 MG/10 ML VIAL IV SCH (08:32)
[2022-12-04] MEDS: FLUoxetine HCL 20 MG CAP PO SCH (08:32)
[2022-12-04] MEDS: SPIRONOLACTONE 25 MG TAB PO SCH (08:32)
[2022-12-04] MEDS: LACTULOSE 20 GM/30 ML CUP PO SCH (08:33)
[2022-12-04] MEDS: PROPRANOLOL 10 MG TAB PO SCH (08:33)
[2022-12-04 09:06] LABS: INR 1.7 (<1.2); Prothrombin Time 17.2 sec (9.0-12.0)
[2022-12-04 09:10] LABS: Basophils # (A) 0.04 X 10*3/uL (0.00-0.10); Basophils % (A) 0.8 %; Eosinophils # (A) 0.16 X 10*3/uL (0.04-0.35); Eosinophils % (A) 3.4 %; HCT 24.7 % (37.2-46.3); HGB 8.1 d/dL (12.0-15.0); Immature Platelet Fraction 5.3 % (1.1-6.1); Lymphocytes # (A) 1.04 X 10*3/uL (0.90-5.00); MCH 38.4 pg (27.0-32.0); MCHC 32.8 d/dL (32.0-37.0); MCV 117.1 FL (80.0-97.0); Monocytes % (A) 10.6 %; NRBC Per 100 WBC 0.02 X 10*3/uL (0.00-0.01); Neutrophils # (A) 2.88 X 10*3/uL (1.80-7.70); Neutrophils % (A) 61.1 %; Platelet Count 35 X 10*3/uL (140-440); RBC 2.11 X 10*6/uL (4.10-5.20); RDW 13.1 % (11.5-14.5); WBC 4.72 X 10*3/uL (4.50-10.00)
--- NOTE | 2022-12-04 09:28 | XR ---
EXAMINATION TYPE: XR chest 1V portable DATE OF EXAM: 12/04/2022 COMPARISON: 12/03/2022 HISTORY: Right lung nodule TECHNIQUE: Single frontal view of the chest is obtained. FINDINGS: Bilateral lower lobe consolidation greater on the right. Nodular density right lung is par tially obscured. No overt failure pneumothorax. Use osteopenia. Atherosclerotic change aorta. Underly ing COPD suspected IMPRESSION: 1. Basilar infiltrates slightly rest of the right lung base. 2. Vague nodular density right lower lobe possibly related to nipple shadow. Frontal view with nipple markers could be obtained for confirmation
[2022-12-04] MEDS: LEVOFLOXACIN 500MG-D5W PMX 500 MG in DEXTROSE/WATER 1 100ML.BAG IVPB SCH (11:04)
[2022-12-04] MEDS: SODIUM CHLORIDE 0.9% 1,000 ML IV SCH (11:04)
[2022-12-04 11:54] LABS: BUN/Creat Ratio 10.57 Ratio (12.00-20.00); Blood Urea Nitrogen 7.4 mg/dL (9.0-27.0); Calcium 8.2 mg/dL (8.7-10.3); Carbon Dioxide 24.7 mmol/L (21.6-31.8); Chloride 107 mmol/L (96-109); Glucose 104 mg/dL (70-110); Potassium 3.2 mmol/L (3.5-5.5); Sodium 143 mmol/L (135-145)
--- NOTE | 2022-12-04 13:19 | DS ---
DISCHARGE SUMMARY FINAL DIAGNOSES: 1. Acute upper GI bleeding with acute blood loss anemia, possibly from variceal bleeding, status post EGD. 2. Coagulopathy secondary to cirrhosis of liver. 3. Right lung nodule, for outpatient followup. 4. Cirrhosis of the liver secondary to EtOH. 5. Chronic obstructive pulmonary disease and asthma. 6. Multiple medical issues. DISCHARGE DISPOSITION: The patient was discharged in stable condition, guarded prognosis. HISTORY OF PRESENT ILLNESS: This is a 52-year-old woman with a past medical history of multiple medical problems, admitted with upper GI bleeding. The patient had an endoscopy. The hemoglobin is rather stable at 8.1 and INR was elevated. The patient received vitamin K. The patient also had a right-sided lung nodule in one of the x-rays which needed outpatient followup with followup chest x-ray in a few weeks and further evaluation if there is any abnormality. Otherwise, the patient will be discharged in stable condition, guarded prognosis. PHYSICAL EXAMINATION: VITALS: Stable. CARDIOVASCULAR: S1, S2 muffled. ABDOMEN: Soft. NERVOUS SYSTEM: Nonfocal. The patient is extremely keen on going home. DISCHARGE MEDICATIONS: Please refer to the discharge reconciliation medication list. Continue the home medications and also Levaquin 500 mg p.o. b.i.d. for 3 days and vitamin K 5 mg p.o. daily for 2 weeks. Follow up with Dr. Alcantar in 2 weeks. MMEDL / ZEUS: [id number] /
== END 2022-12-04 13:05 | disposition home or self-care (01) | DRG 253 ==
LOC: EC 02:18 → 5NMEDONC 05:04
PROVIDERS: ADMIT Hospitalist; ATTEND Hospitalist
PROC: 30233K1 Transfusion of Nonautologous Frozen Plasma into Peripheral Vein, Percutaneous Approach (ICD-10-PCS; 2022-12-02)
PROC: 30233R1 Transfusion of Nonautologous Platelets into Peripheral Vein, Percutaneous Approach (ICD-10-PCS; 2022-12-02)
PROC: 0DJ08ZZ Inspection of Upper Intestinal Tract, Via Natural or Artificial Opening Endoscopic (ICD-10-PCS; principal; 2022-12-03 08:00)
DX: K92.0 Hematemesis (principal); I85.10 Secondary esophageal varices without bleeding; K70.31 Alcoholic cirrhosis of liver with ascites; D62 Acute posthemorrhagic anemia; F31.30 Bipolar disorder, current episode depressed, mild or moderate severity, unspecified; F41.9 Anxiety disorder, unspecified; J44.9 Chronic obstructive pulmonary disease, unspecified; D69.6 Thrombocytopenia, unspecified; D68.4 Acquired coagulation factor deficiency; R91.1 Solitary pulmonary nodule; F17.210 Nicotine dependence, cigarettes, uncomplicated; K31.89 Other diseases of stomach and duodenum; K76.6 Portal hypertension; K76.82 Hepatic encephalopathy; Z79.899 Other long term (current) drug therapy
CPT/HCPCS: 36415; 43235; 71045; 80048; 80053; 80320; 82140; 82271; 82728; 83540; 83550; 83690; 83735; 84100; 84484; 85025; 85610; 85730; 86850; 86900; 86901; 96361; 96374; 96375; 99285

== ENCOUNTER 2022-12-31 12:44 | Inpatient (IN) | payer OTHER ==
[2022-12-31] MEDS ORDERED: SODIUM CHLORIDE 0.9% 500 ML 500 ML IV ONE (12:46)
[2022-12-31 12:48] LABS: Glucose,Whole Blood 169 mg/dL (70-110)
--- NOTE | 2022-12-31 12:50 | ED ---
General Adult HPI - General Stated complaint: AMS Time Seen by Provider: 12/31/22 12:45 Source: patient, EMS, RN notes reviewed, old records reviewed - History of Present Illness Initial comments: this is a 52-year-old female who presents emergency Department with a past medical history significant for cirrhosis. Patient was at home and EMS was called because patient was in an out of consciousness and having nausea vomiting diarrhea. Patient also has left-sided paralysis from her previous stroke. Patient is able to tell she's not any pain except that she is extremely tired is her only complaint. Patient denies any recent fever chills. According to EMS there might have been some seizure-like activity according to the family that only lasted a short period time. No other history is available because no family is with him and patient is unable to give any further history - Related Data Home Medications Medication Instructions Recorded Confirmed FLUoxetine HCL [PROzac] 40 mg PO DAILY 10/01/22 12/31/22 Midodrine HCl [ProAmantine] 2.5 mg PO Q8H PRN 10/01/22 12/31/22 Pantoprazole Sodium [Protonix] 40 mg PO DAILY PRN 10/01/22 12/31/22 Potassium Chloride ER [K-Dur 10] 10 meq PO DAILY 10/01/22 12/31/22 Propranolol [Inderal] 10 mg PO BID 10/01/22 12/31/22 Thiamine [Vitamin B-1] 100 mg PO DAILY 10/01/22 12/31/22 lamoTRIgine [LaMICtal] 25 mg PO BID 10/01/22 12/31/22 Ubidecarenone [Coenzyme Q10] 100 mg PO DAILY 12/02/22 12/31/22 Previous Rx's Medication Instructions Recorded Furosemide [Lasix] 40 mg PO DAILY #30 tab 10/04/22 Lactulose [Cephulac] 30 gm PO TID #120 ml 10/04/22 Spironolactone [Aldactone] 100 mg PO DAILY #30 tab 10/04/22 Phytonadione Oral [Vitamin K Oral] 5 mg PO DAILY #15 ml 12/04/22 Allergies Allergy/AdvReac Type Severity Reaction Status Date / Time Penicillins Allergy Swelling Verified 12/31/22 15:32 tongue Sulfa (Sulfonamide Allergy Swelling Verified 12/31/22 15:32 Antibiotics) tongue walnut Allergy Anaphylaxis Verified 12/31/22 15:32 Review of Systems ROS Statement: Those systems with pertinent positive or pertinent negative responses have been documented in the HPI. ROS Other: All systems not noted in ROS Statement are negative. Past Medical History Past Medical History: Asthma, Liver Disease Additional Past Medical History / Comment(s): ascites,paracentesis 01-08-18, low platelets, previous ETOH abuse History of Any Multi-Drug Resistant Organisms: None Reported Past Surgical History: No Surgical Hx Reported Additional Past Surgical History / Comment(s): repair to spleen [place] Ruptured spleen in 1988 Past Anesthesia/Blood Transfusion Reactions: No Reported Reaction Additional Past Anesthesia/Blood Transfusion Reaction / Comment(s): pt not sure if had blood transfusion in past Past Psychological History: Anxiety, Bipolar, Depression Smoking Status: Current every day smoker Past Alcohol Use History: None Reported Past Drug Use History: Marijuana - Past Family History Sister(s) Additional Family Medical History / Comment(s): closed head injury Mother Family Medical History: Diabetes Mellitus, Hyperlipidemia General Exam - General Exam Comments Initial Comments: GENERAL: Patient is well-developed and well-nourished. Patient is nontoxic and well- hydrated and is in no acute distress. ENT: Neck is soft and supple. No significant lymphadenopathy is noted. Oropharynx is clear. Moist mucous membranes. Neck has full range of motion without eliciting any pain. EYES: The sclera icterus. Extraocular movements were intact and pupils were equal round and reactive to light. Eyelids were unremarkable. PULMONARY: Unlabored respirations. Good breath sounds bilaterally. No audible rales rhonchi or wheezing was noted. CARDIOVASCULAR: There is a regular rate and rhythm without any murmurs gallops or rubs. ABDOMEN: Soft and nontender with normal bowel sounds. SKIN: jaundice NEUROLOGIC: Patient is alert and oriented 2. Cranial nerves II through XII are grossly intact. complete left-sided paralysis MUSCULOSKELETAL: Normal extremities with adequate strength and full range of motion. LYMPHATICS: No significant lymphadenopathy is noted PSYCHIATRIC: Normal psychiatric evaluation. Course Vital Signs 12/31/22 12/31/22 12/31/22 12:45 13:34 13:46 Temperature 94.3 F L 92.5 F L 93.4 F L Pulse Rate 83 78 80 Respiratory 16 18 18 Rate Blood Pressure 120/77 123/82 123/82 O2 Sat by Pulse 94 L 100 100 Oximetry 12/31/22 12/31/22 15:00 16:09 Temperature 95.2 F L 96.4 F L Pulse Rate 85 89 Respiratory 18 18 Rate Blood Pressure 113/81 119/84 O2 Sat by Pulse 99 100 Oximetry Medical Decision Making - Medical Decision Making EKG was interpreted by myself. EKG shows a sinus rhythm at 83 bpm AL interval 182 QRS is 98 QT interval is 492 QTC is 448. Patient's EKG shows no ST segment elevation or depression Was pt. sent in by a medical professional or institution (, PA, LACTATION COORDINATOR, urgent care, hospital, or care home...) When possible be specific @ -No Did you speak to anyone other than the patient for history (EMS, parent, family, police, friend...)? What history was obtained from this source @ -Jaskaran all the history Did you review nursing and triage notes (agree or disagree)? Why? @ -I reviewed and agree with nursing and triage notes Were old charts reviewed (outside hosp., previous admission, EMS record, old EKG, old radiological studies, urgent care reports/EKG's, care home records)? Report findings @ -Prior labs and prior radiological and prior charts were all reviewed Differential Diagnosis (chest pain, altered mental status, abdominal pain women, abdominal pain men, vaginal bleeding, weakness, fever, dyspnea, syncope, headache, dizziness, GI bleed, back pain, seizure, CVA, palpatations, mental health, musculoskeletal)? @ -Differential Altered Mental Status: Hypoglycemia, DKA, hypercapnia, ETOH, overdose, CO poisoning, trauma, myxedema coma, HTN encephalopathy, infection, encephalitis, psychosis, intercranial hemorrhage, hepatic encephalopathy, meningitis, CVA, this is not meant to be an all-inclusive list EKG interpreted by me (3pts min.). @ -As above X-rays interpreted by me (1pt min.). @ -Chest x-ray showed no acute abnormality CT interpreted by me (1pt min.). @ -CT of the brain showed no acute abnormality U/S interpreted by me (1pt. min.). @ -None done What testing was considered but not performed or refused? (CT, X-rays, U/S, labs)? Why? @ -None What meds were considered but not given or refused? Why? @ -None Did you discuss the management of the patient with other professionals (professionals i.e. , PA, LACTATION COORDINATOR, lab, RT, psych nurse, social services technician, hiv prevention specialist, teacher, detention officer, keycase assembler)? Give summary @ -I spoke with Dr. Yao to admit the patient he came down to the emergency department and saw the patient Was smoking cessation discussed for >3mins.? @ -No Was critical care preformed (if so, how long)? @ -35 minutes Were there social determinants of health that impacted care today? How? (Homelessness, low income, unemployed, alcoholism, drug addiction, transportation, low edu. Level, literacy, decrease access to med. care, long-term, rehab)? @ -No Was there de-escalation of care discussed even if they declined (Discuss DNR or withdrawal of care, Hospice)? DNR status @ -No What co-morbidities impacted this encounter? (DM, HTN, Smoking, COPD, CAD, Cancer, CVA, ARF, Chemo, Hep., AIDS, mental health diagnosis, sleep apnea, morbid obesity)? @ -None Was patient admitted / discharged? Hospital course, mention meds given and route, prescriptions, significant lab abnormalities, going to OR and other pertinent info. @ -Patient's lab work came back showed elevated ammonia level. Patient also had a seizure while in the emergency department received 2 mg of Ativan. Patient remained very lethargic but was able to respond slowly very basic questions. Patient was also given lactulose in the emergency department. Dr. Yao did come down and see the patient. I admitted the patient and I consult the neurology problem with uncertain prognosis? @ -No Drug Therapy requiring intensive monitoring for toxicity (Heparin, Nitro, Insulin, Cardizem)? @ -No Were any procedures done? @ -No Diagnosis/symptom? @ -Generalized seizures Acute, or Chronic, or Acute on Chronic? @ -Acute on chronic Uncomplicated (without systemic symptoms) or Complicated (systemic symptoms)? @ -Complicated Side effects of treatment? @ -No Exacerbation, Progression, or Severe Exacerbation? @ -No Poses a threat to life or bodily function? How? (Chest pain, [place], [place], pneumonia, PE, COPD, DKA, ARF, appy, cholecystitis, CVA, Diverticulitis, Homicidal, Suicidal, threat to staff... and all critical care pts) @ -No Diagnosis/symptom? @ -Hepatic encephalopathy Acute, or Chronic, or Acute on Chronic? @ -Acute on chronic Uncomplicated (without systemic symptoms) or Complicated (systemic symptoms)? @ -Complicated Side effects of treatment? @ -none Exacerbation, Progression, or Severe Exacerbation] @ -No Poses a threat to life or bodily function? @ -Yes this could lead to - Lab Data Result diagrams: 12/31/22 12:59 12/31/22 12:59 Lab Results 12/31/22 12/31/22 12/31/22 Range/Units 12:46 12:59 12:59 WBC 6.5 (3.8-10.6) k/uL RBC 2.88 L (3.80-5.40) m/uL Hgb 11.1 L (11.4-16.0) gm/dL Hct 32.8 L (34.0-46.0) % MCV 113.9 H (80.0-100.0) fL MCH 38.6 H (25.0-35.0) pg MCHC 33.9 (31.0-37.0) g/dL RDW 14.2 (11.5-15.5) % Plt Count 29 L (150-450) k/uL MPV 8.3 Neutrophils % 75 % Lymphocytes % 15 % Monocytes % 6 % Eosinophils % 3 % Basophils % 0 % Neutrophils # 4.9 (1.3-7.7) k/uL Lymphocytes # 0.9 L (1.0-4.8) k/uL Monocytes # 0.4 (0-1.0) k/uL Eosinophils # 0.2 (0-0.7) k/uL Basophils # 0.0 (0-0.2) k/uL Differential Comment Manual Slide Review Performed Poikilocytosis Slight Macrocytosis Marked A Tear Drop Cells Present PT 20.7 H (9.0-12.0) sec INR 2.1 H (<1.2) APTT 30.4 H (22.0-30.0) sec Sodium (137-145) mmol/L Potassium (3.5-5.1) mmol/L Chloride (98-107) mmol/L Carbon Dioxide (22-30) mmol/L Anion Gap mmol/L BUN (7-17) mg/dL Creatinine (0.52-1.04) mg/dL Est GFR (CKD-EPI)AfAm (>60 ml/min/1.73 sqM) Est GFR (CKD-EPI)NonAf (>60 ml/min/1.73 sqM) Glucose (74-99) mg/dL POC Glucose (mg/dL) 169 H (70-110) mg/dL POC Glu Loans Consultant ID Jennifer Priest Lactic Ac Sepsis Rflx Plasma Lactic Acid Heladio (0.7-2.0) mmol/L Calcium (8.4-10.2) mg/dL Total Bilirubin (0.2-1.3) mg/dL AST (14-36) U/L ALT (4-34) U/L Alkaline Phosphatase (38-126) U/L Ammonia (<30) umol/L Troponin I (0.000-0.034) ng/mL Total Protein (6.3-8.2) g/dL Albumin (3.5-5.0) g/dL Urine Color Urine Appearance (Clear) Urine pH (5.0-8.0) Ur Specific [place] (1.001-1.035) Urine Protein (Negative) Urine Glucose (UA) (Negative) Urine Ketones (Negative) Urine Blood (Negative) Urine Nitrite (Negative) Urine Bilirubin (Negative) Urine Urobilinogen (<2.0) mg/dL Ur Leukocyte Esterase (Negative) Urine Opiates Screen (NotDetected) Ur Oxycodone Screen (NotDetected) Urine Methadone Screen (NotDetected) Ur Propoxyphene Screen (NotDetected) Ur Barbiturates Screen (NotDetected) U Tricyclic Antidepress (NotDetected) Ur Phencyclidine Scrn (NotDetected) Ur Amphetamines Screen (NotDetected) U Methamphetamines Scrn (NotDetected) U Benzodiazepines Scrn (NotDetected) Urine Cocaine Screen (NotDetected) U Marijuana (THC) Screen (NotDetected) Serum Alcohol mg/dL 12/31/22 12/31/22 12/31/22 Range/Units 12:59 12:59 12:59 WBC (3.8-10.6) k/uL RBC (3.80-5.40) m/uL Hgb (11.4-16.0) gm/dL Hct (34.0-46.0) % MCV (80.0-100.0) fL MCH (25.0-35.0) pg MCHC (31.0-37.0) g/dL RDW (11.5-15.5) % Plt Count (150-450) k/uL MPV Neutrophils % % Lymphocytes % % Monocytes % % Eosinophils % % Basophils % % Neutrophils # (1.3-7.7) k/uL Lymphocytes # (1.0-4.8) k/uL Monocytes # (0-1.0) k/uL Eosinophils # (0-0.7) k/uL Basophils # (0-0.2) k/uL Differential Comment Manual Slide Review Poikilocytosis Macrocytosis Tear Drop Cells PT (9.0-12.0) sec INR (<1.2) APTT (22.0-30.0) sec Sodium 141 (137-145) mmol/L Potassium 3.5 (3.5-5.1) mmol/L Chloride 106 (98-107) mmol/L Carbon Dioxide 23 (22-30) mmol/L Anion Gap 12 mmol/L BUN 17 (7-17) mg/dL Creatinine 0.72 (0.52-1.04) mg/dL Est GFR (CKD-EPI)AfAm >90 (>60 ml/min/1.73 sqM) Est GFR (CKD-EPI)NonAf >90 (>60 ml/min/1.73 sqM) Glucose 144 H (74-99) mg/dL POC Glucose (mg/dL) (70-110) mg/dL POC Glu Loans Consultant ID Lactic Ac Sepsis Rflx Plasma Lactic Acid Heladio (0.7-2.0) mmol/L Calcium 8.1 L (8.4-10.2) mg/dL Total Bilirubin 11.1 H (0.2-1.3) mg/dL AST 80 H (14-36) U/L ALT 40 H (4-34) U/L Alkaline Phosphatase 167 H (38-126) U/L Ammonia 45 H (<30) umol/L Troponin I (0.000-0.034) ng/mL Total Protein 7.5 (6.3-8.2) g/dL Albumin 3.1 L (3.5-5.0) g/dL Urine Color Brown Urine Appearance Clear (Clear) Urine pH 7.0 (5.0-8.0) Ur Specific [place] 1.026 (1.001-1.035) Urine Protein Trace H (Negative) Urine Glucose (UA) Negative (Negative) Urine Ketones Negative (Negative) Urine Blood Negative (Negative) Urine Nitrite Negative (Negative) Urine Bilirubin 2+ H (Negative) Urine Urobilinogen >12.0 (<2.0) mg/dL Ur Leukocyte Esterase Negative (Negative) Urine Opiates Screen Not Detected (NotDetected) Ur Oxycodone Screen Not Detected (NotDetected) Urine Methadone Screen Not Detected (NotDetected) Ur Propoxyphene Screen Not Detected (NotDetected) Ur Barbiturates Screen Not Detected (NotDetected) U Tricyclic Antidepress Not Detected (NotDetected) Ur Phencyclidine Scrn Not Detected (NotDetected) Ur Amphetamines Screen Not Detected (NotDetected) U Methamphetamines Scrn Not Detected (NotDetected) U Benzodiazepines Scrn Detected H (NotDetected) Urine Cocaine Screen Not Detected (NotDetected) U Marijuana (THC) Screen Detected H (NotDetected) Serum Alcohol <10 mg/dL 12/31/22 12/31/22 12/31/22 Range/Units 12:59 12:59 13:43 WBC (3.8-10.6) k/uL RBC (3.80-5.40) m/uL Hgb (11.4-16.0) gm/dL Hct (34.0-46.0) % MCV (80.0-100.0) fL MCH (25.0-35.0) pg MCHC (31.0-37.0) g/dL RDW (11.5-15.5) % Plt Count (150-450) k/uL MPV Neutrophils % % Lymphocytes % % Monocytes % % Eosinophils % % Basophils % % Neutrophils # (1.3-7.7) k/uL Lymphocytes # (1.0-4.8) k/uL Monocytes # (0-1.0) k/uL Eosinophils # (0-0.7) k/uL Basophils # (0-0.2) k/uL Differential Comment Manual Slide Review Poikilocytosis Macrocytosis Tear Drop Cells PT (9.0-12.0) sec INR (<1.2) APTT (22.0-30.0) sec Sodium (137-145) mmol/L Potassium (3.5-5.1) mmol/L Chloride (98-107) mmol/L Carbon Dioxide (22-30) mmol/L Anion Gap mmol/L BUN (7-17) mg/dL Creatinine (0.52-1.04) mg/dL Est GFR (CKD-EPI)AfAm (>60 ml/min/1.73 sqM) Est GFR (CKD-EPI)NonAf (>60 ml/min/1.73 sqM) Glucose (74-99) mg/dL POC Glucose (mg/dL) 141 H (70-110) mg/dL POC Glu Loans Consultant ID Jennifer Priest Lactic Ac Sepsis Rflx Plasma Lactic Acid Helad[place] 2.8 H* (0.7-2.0) mmol/L Calcium (8.4-10.2) mg/dL Total Bilirubin (0.2-1.3) mg/dL AST (14-36) U/L ALT (4-34) U/L Alkaline Phosphatase (38-126) U/L Ammonia (<30) umol/L Troponin I 0.017 (0.000-0.034) ng/mL Total Protein (6.3-8.2) g/dL Albumin (3.5-5.0) g/dL Urine Color Urine Appearance (Clear) Urine pH (5.0-8.0) Ur Specific [place] (1.001-1.035) Urine Protein (Negative) Urine Glucose (UA) (Negative) Urine Ketones (Negative) Urine Blood (Negative) Urine Nitrite (Negative) Urine Bilirubin (Negative) Urine Urobilinogen (<2.0) mg/dL Ur Leukocyte Esterase (Negative) Urine Opiates Screen (NotDetected) Ur Oxycodone Screen (NotDetected) Urine Methadone Screen (NotDetected) Ur Propoxyphene Screen (NotDetected) Ur Barbiturates Screen (NotDetected) U Tricyclic Antidepress (NotDetected) Ur Phencyclidine Scrn (NotDetected) Ur Amphetamines Screen (NotDetected) U Methamphetamines Scrn (NotDetected) U Benzodiazepines Scrn (NotDetected) Urine Cocaine Screen (NotDetected) U Marijuana (THC) Screen (NotDetected) Serum Alcohol mg/dL 12/31/22 Range/Units 15:20 WBC (3.8-10.6) k/uL RBC (3.80-5.40) m/uL Hgb (11.4-16.0) gm/dL Hct (34.0-46.0) % MCV (80.0-100.0) fL MCH (25.0-35.0) pg MCHC (31.0-37.0) g/dL RDW (11.5-15.5) % Plt Count (150-450) k/uL MPV Neutrophils % % Lymphocytes % % Monocytes % % Eosinophils % % Basophils % % Neutrophils # (1.3-7.7) k/uL Lymphocytes # (1.0-4.8) k/uL Monocytes # (0-1.0) k/uL Eosinophils # (0-0.7) k/uL Basophils # (0-0.2) k/uL Differential Comment Manual Slide Review Poikilocytosis Macrocytosis Tear Drop Cells PT (9.0-12.0) sec INR (<1.2) APTT (22.0-30.0) sec Sodium (137-145) mmol/L Potassium (3.5-5.1) mmol/L Chloride (98-107) mmol/L Carbon Dioxide (22-30) mmol/L Anion Gap mmol/L BUN (7-17) mg/dL Creatinine (0.52-1.04) mg/dL Est GFR (CKD-EPI)AfAm (>60 ml/min/1.73 sqM) Est GFR (CKD-EPI)NonAf (>60 ml/min/1.73 sqM) Glucose (74-99) mg/dL POC Glucose (mg/dL) (70-110) mg/dL POC Glu Loans Consultant ID Lactic Ac Sepsis Rflx Y Plasma Lactic Acid [place] (0.7-2.0) mmol/L Calcium (8.4-10.2) mg/dL Total Bilirubin (0.2-1.3) mg/dL AST (14-36) U/L ALT (4-34) U/L Alkaline Phosphatase (38-126) U/L Ammonia (<30) umol/L Troponin I (0.000-0.034) ng/mL Total Protein (6.3-8.2) g/dL Albumin (3.5-5.0) g/dL Urine Color Urine Appearance (Clear) Urine pH (5.0-8.0) Ur Specific [place] (1.001-1.035) Urine Protein (Negative) Urine Glucose (UA) (Negative) Urine Ketones (Negative) Urine Blood (Negative) Urine Nitrite (Negative) Urine Bilirubin (Negative) Urine Urobilinogen (<2.0) mg/dL Ur Leukocyte Esterase (Negative) Urine Opiates Screen (NotDetected) Ur Oxycodone Screen (NotDetected) Urine Methadone Screen (NotDetected) Ur Propoxyphene Screen (NotDetected) Ur Barbiturates Screen (NotDetected) U Tricyclic Antidepress (NotDetected) Ur Phencyclidine Scrn (NotDetected) Ur Amphetamines Screen (NotDetected) U Methamphetamines Scrn (NotDetected) U Benzodiazepines Scrn (NotDetected) Urine Cocaine Screen (NotDetected) U Marijuana (THC) Screen (NotDetected) Serum Alcohol mg/dL Critical Care Time Critical Care Time: Yes Total Critical Care Time: 35 Disposition Clinical Impression: Hepatic encephalopathy, Generalized seizures, Cirrhosis of liver, Ascites, Elev ated liver enzymes Disposition: ADMITTED IP TO THIS [facility] Instructions (If sedation given, give patient instructions): Seizure/Epilepsy Discharge Instructions & Follow-Up Referrals: None,Stated [REFERRING] - 1-2 days Time of Disposition: 19:10
[2022-12-31 13:08] LABS: Basophils % (A) 0 %; Eosinophils # (A) 0.2 k/uL (0-0.7); Eosinophils % (A) 3 %; HCT 32.8 % (34.0-46.0); HGB 11.1 gm/dL (11.4-16.0); Lymphocytes # (A) 0.9 k/uL (1.0-4.8); Lymphocytes % (A) 15 %; MCH 38.6 pg (25.0-35.0); MCHC 33.9 g/dL (31.0-37.0); MCV 113.9 fL (80.0-100.0); Macrocytosis Marked; Mean Platelet Volume 8.3; Monocytes # (A) 0.4 k/uL (0-1.0); Monocytes % (A) 6 %; Neutrophils # (A) 4.9 k/uL (1.3-7.7); Neutrophils % (A) 75 %; Poikilocytosis Slight; RBC 2.88 m/uL (3.80-5.40); RDW 14.2 % (11.5-15.5); WBC 6.5 k/uL (3.8-10.6)
[2022-12-31 13:17] LABS: INR 2.1 (<1.2); Partial Thromboplastin Time 30.4 sec (22.0-30.0); Prothrombin Time 20.7 sec (9.0-12.0)
--- NOTE | 2022-12-31 13:29 | CT ---
EXAMINATION TYPE: CT brain wo con CT DLP: 1100.4 mGycm, Automated exposure control for dose reduction was used. DATE OF EXAM: 12/31/2022 1:18 PM COMPARISON: 11/15/2016 CLINICAL INDICATION:Female, 52 years old with history of Altered mental status, AMS, hx of stroke TECHNIQUE: Brain: Axial CT images of the brain were obtained with coronal and sagittal reformats created and rev iewed. Contrast used: None. Oral contrast used: None. FINDINGS: Brain: Extra-axial spaces: No abnormal extra-axial fluid collections. Ventricular system: Dilatation in proportion to cerebral atrophy. Cerebral parenchyma: Right middle cranial fossa CSF collection could represent arachnoid cyst. Cerebr al atrophy. No acute intraparenchymal hemorrhage or mass effect. The jenkins-white junction is well dif ferentiated. Scattered hypoattenuating areas are seen within the white matter. Cerebellum: Unremarkable. Mass effect: No evidence of midline shift. Intracranial vasculature: unremarkable Soft tissues: Normal. Calvarium/osseous structures: No depressed skull fracture. Postprocedural changes to the right fronta l calvarium. Paranasal sinuses and mastoid air cells: Mild scattered paranasal sinus disease. Visualized orbits: Orbital contents are intact. IMPRESSION: 1. No acute intracranial process. 2. Nonspecific white matter changes, likely secondary to chronic small vessel ischemic disease. 3. Right middle cranial fossa arachnoid cyst suggested. This can be confirmed with MRI.
[2022-12-31 13:32] LABS: ALT 40 U/L (4-34); AST 80 U/L (14-36); African American GFR (CKD) >90 (>60 ml/min/1.73 sqM); Albumin 3.1 g/dL (3.5-5.0); Alcohol <10 mg/dL; Alkaline Phosphatase 167 U/L (38-126); Anion Gap 12 mmol/L; Blood Urea Nitrogen 17 mg/dL (7-17); Calcium 8.1 mg/dL (8.4-10.2); Carbon Dioxide 23 mmol/L (22-30); Chloride 106 mmol/L (98-107); Glucose 144 mg/dL (74-99); Non-African American GFR(CKD) >90 (>60 ml/min/1.73 sqM); Potassium 3.5 mmol/L (3.5-5.1); Sodium 141 mmol/L (137-145); Total Bilirubin 11.1 mg/dL (0.2-1.3); Total Protein 7.5 g/dL (6.3-8.2)
[2022-12-31] MEDS ORDERED: LORazepam 2 MG/ML INJ IV STA (13:33)
[2022-12-31 13:47] LABS: Platelet Count 29 k/uL (150-450)
[2022-12-31 13:48] LABS: Tear Drop Cells Present
[2022-12-31 13:55] LABS: Glucose,Whole Blood 141 mg/dL (70-110)
[2022-12-31] MEDS ORDERED: LACTULOSE 200 GM/300 ML (FROM 1/2 GAL JUG) RECTAL ONE (13:58)
[2022-12-31 14:01] LABS: Appearance,Urine Clear (Clear); Bilirubin,Urine 2+ (Negative); Blood,Urine Negative (Negative); Color,Urine Brown; Glucose,Urine (UA) Negative (Negative); Ketones,Urine Negative (Negative); Leukocyte Esterase,Urine Negative (Negative); Nitrite,Urine Negative (Negative); Protein,Urine Trace (Negative); Specific Gravity,Urine 1.026 (1.001-1.035); Urobilinogen,Urine >12.0 mg/dL (<2.0)
--- NOTE | 2022-12-31 14:06 | XR ---
EXAMINATION TYPE: XR chest 1V portable DATE OF EXAM: 12/31/2022 1:56 PM CLINICAL INDICATION:Female, 52 years old with history of altered mental status; COMPARISON: Chest radiographs from 12/04/2022 TECHNIQUE: XR chest 1V portable Frontal view of the chest. FINDINGS: Lungs/Pleura: There is no evidence of pleural effusion, focal consolidation, or pneumothorax. Pulmonary vascularity: Unremarkable. Heart/mediastinum: Cardiomediastinal silhouette is unremarkable. Musculoskeletal: No acute osseous pathology. IMPRESSION: No acute cardiopulmonary disease/process.
[2022-12-31 14:08] LABS: Amphetamine Screen,Urine Not Detected (NotDetected); Barbiturate Screen,Urine Not Detected (NotDetected); Benzodiazepines Screen,Urine Detected (NotDetected); Cocaine Screen,Urine Not Detected (NotDetected); Methadone Screen, Urine Not Detected (NotDetected); Opiate Screen,Urine Not Detected (NotDetected); Oxycodone Screen, Urine Not Detected (NotDetected); Phencyclidine Screen,Urine Not Detected (NotDetected); Tricyclic Antidepressant,Urine Not Detected (NotDetected); Urn Cannabinoid Scrn Detected (NotDetected)
[2022-12-31] MEDS ORDERED: levETIRAcetam IV 500 MG/5 ML VIAL IVP STA (14:47)
[2022-12-31] MEDS ORDERED: LACTULOSE 20 GM/30 ML CUP PO ONE (14:51)
--- NOTE | 2022-12-31 15:57 | XR ---
EXAMINATION TYPE: XR chest 1V portable DATE OF EXAM: 12/31/2022 COMPARISON: 12/31/2022 HISTORY: Line placement TECHNIQUE: Single frontal view of the chest is obtained. FINDINGS: Limited inspiration. There is no definite central line identified. No sizable pneumothorax . Subsegmental atelectasis right lung base. NG tube appears extending in the left upper quadrant herrera lar position to prior exam. Tip of the catheter overlying the gastric body IMPRESSION: 1. NG tube with tip in the left upper quadrant likely within the gastric body.
[2022-12-31] MEDS ORDERED: NALOXONE 0.4 MG/ML 1 ML VIAL IV PRN (17:12)
[2022-12-31] MEDS ORDERED: LORazepam 2 MG/ML INJ IV PRN (17:14)
--- NOTE | 2022-12-31 17:25 | P.HPIM ---
History of Present Illness H&P Date: 12/31/22 Patient is a 52-year-old female with history of cirrhosis, alcohol use presenting with acute encephalopathy. Patient is a poor historian. History is based on chart review and information gathered from ER provider. No family at bedside. Patient was at home, progressively getting confused. She may have had seizure-like activity at home. She then had another seizure-like activity in the ER, was given Ativan. Currently patient is obtunded from Ativan, unable to provide clear history. In the ED, patient was hypothermic, rest of the vitals signs were otherwise within normal limits. WBC 6.5, hemoglobin 11.1, platelet 29, INR 1, PT 20.7, potassium 3.5, creatinine 0.72, glucose 169, lactate 2.8, total bilirubin 11.1, AST 80, ALT 40, ammonia 45, troponin negative, urinalysis negative for nitrites and leukocyte esterase, urine toxicology positive for benzodiazepine and mar ijuana. Head CT did not show any acute process. Chest x-ray independently interpreted, shows no acute process, NG tube in place. Patient being admitted for seizures as well as acute encephalopathy in the setting of likely decompensated liver failure. Pertinent positives and negatives as discussed in HPI, a complete review of systems was performed and all other systems are negative. Patient seen and examined at bedside. Vital signs reviewed General: nontoxic, no distress, appears at stated age, obtunded Derm: warm, dry, jaundice Head: atraumatic, normocephalic, symmetric Eyes: icteric sclera, pupils equal round reactive to light ENT: Nose and ears atraumatic Neck: No thyromegaly, supple Mouth: no lip lesion, mucus membranes moist Cardiovascular: S1S2 reg, no murmur, no edema Lungs: clear to auscultation bilateral, no rhonchi, no rales, no wheeze, no accessory muscle use Abdominal: soft, nontender to palpation, distended, umbilical hernia, no guarding, no appreciable organomegaly Ext: no gross muscle atrophy, no contractures Neuro: Obtunded Psych: Unable to assess Assessment/Plan: Active: Acute encephalopathy, likely hepatic Seizures Lactic acidosis -Encephalopathy likely in the setting of decompensated cirrhosis -Blood cultures pending -EEG pending -Neurology consulted -Lactic acidosis possibly in the setting of seizures, repeat in trend -CT head did not show any acute process -IV ativan PRN -seizure precuations -neurochecks Decompensated cirrhosis INR elevated Transaminitis -MELD score is 24 points, 19.6% estimated mortality -abdominal US to evaluate for ascities -Paracentesis if possible -blood cultures pending Macrocytic anemia Thrombocytopenia -continue to trend - likely in the setting of cirrhosis The patient is admitted with an anticipated greater than 2 midnight stay as inpatient status for evaluation of encephalopathy. Surrogate decision-maker: Mother CODE STATUS: Full code DVT prophylaxis: Elevated INR Anticipated discharge date: Pending clinical course Anticipated discharge place: Pending clinical course A total of 65 minutes was spent on the care of this complex patient more than 50% of the time was spent in counseling and care coordination. Past Medical History Past Medical History: Asthma, Liver Disease Additional Past Medical History / Comment(s): ascites,paracentesis 01-08-18, low platelets, previous ETOH abuse History of Any Multi-Drug Resistant Organisms: None Reported Past Surgical History: No Surgical Hx Reported Additional Past Surgical History / Comment(s): repair to spleen [place] Ruptured spleen in 1988 Past Anesthesia/Blood Transfusion Reactions: No Reported Reaction Additional Past Anesthesia/Blood Transfusion Reaction / Comment(s): pt not sure if had blood transfusion in past Past Psychological History: Anxiety, Bipolar, Depression Smoking Status: Current every day smoker Past Alcohol Use History: None Reported Past Drug Use History: Marijuana - Past Family History Sister(s) Additional Family Medical History / Comment(s): closed head injury Mother Family Medical History: Diabetes Mellitus, Hyperlipidemia Medications and Allergies Home Medications Medication Instructions Recorded Confirmed Type FLUoxetine HCL [PROzac] 40 mg PO DAILY 10/01/22 12/31/22 History Midodrine HCl [ProAmantine] 2.5 mg PO Q8H PRN 10/01/22 12/31/22 History Pantoprazole Sodium [Protonix] 40 mg PO DAILY PRN 10/01/22 12/31/22 History Potassium Chloride ER [K-Dur 10] 10 meq PO DAILY 10/01/22 12/31/22 History Propranolol [Inderal] 10 mg PO BID 10/01/22 12/31/22 History Thiamine [Vitamin B-1] 100 mg PO DAILY 10/01/22 12/31/22 History lamoTRIgine [LaMICtal] 25 mg PO BID 10/01/22 12/31/22 History Furosemide [Lasix] 40 mg PO DAILY #30 tab 10/04/22 12/31/22 Rx Lactulose [Cephulac] 30 gm PO TID #120 ml 10/04/22 12/31/22 Rx Spironolactone [Aldactone] 100 mg PO DAILY #30 tab 10/04/22 12/31/22 Rx Ubidecarenone [Coenzyme Q10] 100 mg PO DAILY 12/02/22 12/31/22 History Phytonadione Oral [Vitamin K Oral] 5 mg PO DAILY #15 ml 12/04/22 12/31/22 Rx Allergies Allergy/AdvReac Type Severity Reaction Status Date / Time Penicillins Allergy Swelling Verified 12/31/22 15:32 tongue Sulfa (Sulfonamide Allergy Swelling Verified 12/31/22 15:32 Antibiotics) tongue walnut Allergy Anaphylaxis Verified 12/31/22 15:32 Physical Exam Vitals: Vital Signs Temp Pulse Resp BP Pulse Ox 12/31/22 16:09 96.4 F L 89 18 119/84 100 12/31/22 15:00 95.2 F L 85 18 113/81 99 12/31/22 13:46 93.4 F L 80 18 123/82 100 12/31/22 13:34 92.5 F L 78 18 123/82 100 12/31/22 12:45 94.3 F L 83 16 120/77 94 L Intake and Output 12/31/22 12/31/22 12/31/22 06:59 14:59 22:59 Other: Weight 69.853 kg Results CBC & Chem 7: 12/31/22 12:59 12/31/22 12:59 Labs: Abnormal Lab Results - Last 24 Hours (Table) 12/31/22 12/31/22 12/31/22 Range/Units 12:46 12:59 12:59 RBC 2.88 L (3.80-5.40) m/uL Hgb 11.1 L (11.4-16.0) gm/dL Hct 32.8 L (34.0-46.0) % MCV 113.9 H (80.0-100.0) fL MCH 38.6 H (25.0-35.0) pg Plt Count 29 L (150-450) k/uL Lymphocytes # 0.9 L (1.0-4.8) k/uL Macrocytosis Marked A PT 20.7 H (9.0-12.0) sec INR 2.1 H (<1.2) APTT 30.4 H (22.0-30.0) sec Glucose (74-99) mg/dL POC Glucose (mg/dL) 169 H (70-110) mg/dL Plasma Lactic Acid Heladio (0.7-2.0) mmol/L Calcium (8.4-10.2) mg/dL Total Bilirubin (0.2-1.3) mg/dL AST (14-36) U/L ALT (4-34) U/L Alkaline Phosphatase (38-126) U/L Ammonia (<30) umol/L Albumin (3.5-5.0) g/dL Urine Protein (Negative) Urine Bilirubin (Negative) U Benzodiazepines Scrn (NotDetected) U Marijuana (THC) Screen (NotDetected) 12/31/22 12/31/22 12/31/22 Range/Units 12:59 12:59 12:59 RBC (3.80-5.40) m/uL Hgb (11.4-16.0) gm/dL Hct (34.0-46.0) % MCV (80.0-100.0) fL MCH (25.0-35.0) pg Plt Count (150-450) k/uL Lymphocytes # (1.0-4.8) k/uL Macrocytosis PT (9.0-12.0) sec INR (<1.2) APTT (22.0-30.0) sec Glucose 144 H (74-99) mg/dL POC Glucose (mg/dL) (70-110) mg/dL Plasma Lactic Acid Heladio (0.7-2.0) mmol/L Calcium 8.1 L (8.4-10.2) mg/dL Total Bilirubin 11.1 H (0.2-1.3) mg/dL AST 80 H (14-36) U/L ALT 40 H (4-34) U/L Alkaline Phosphatase 167 H (38-126) U/L Ammonia 45 H (<30) umol/L Albumin 3.1 L (3.5-5.0) g/dL Urine Protein Trace H (Negative) Urine Bilirubin 2+ H (Negative) U Benzodiazepines Scrn Detected H (NotDetected) U Marijuana (THC) Screen Detected H (NotDetected) 12/31/22 12/31/22 Range/Units 12:59 13:43 RBC (3.80-5.40) m/uL Hgb (11.4-16.0) gm/dL Hct (34.0-46.0) % MCV (80.0-100.0) fL MCH (25.0-35.0) pg Plt Count (150-450) k/uL Lymphocytes # (1.0-4.8) k/uL Macrocytosis PT (9.0-12.0) sec INR (<1.2) APTT (22.0-30.0) sec Glucose (74-99) mg/dL POC Glucose (mg/dL) 141 H (70-110) mg/dL Plasma Lactic Acid Heladio 2.8 H* (0.7-2.0) mmol/L Calcium (8.4-10.2) mg/dL Total Bilirubin (0.2-1.3) mg/dL AST (14-36) U/L ALT (4-34) U/L Alkaline Phosphatase (38-126) U/L Ammonia (<30) umol/L Albumin (3.5-5.0) g/dL Urine Protein (Negative) Urine Bilirubin (Negative) U Benzodiazepines Scrn (NotDetected) U Marijuana (THC) Screen (NotDetected)
--- NOTE | 2022-12-31 18:11 | US ---
EXAMINATION TYPE: US abdomen limited DATE OF EXAM: 12/31/2022 COMPARISON: NONE CLINICAL INDICATION: Female, 52 years old with history of assess for ascites; ascites check. Pt was l aying on rt side and was not alert enough to roll supine. TECHNIQUE: Multiple grayscale ultrasound images of the 4 quadrants of the abdomen are obtained for as sessment of ascites. FINDINGS/IMPRESSION: Moderate to large volume ascites throughout the abdomen.
[2022-12-31] MEDS: PROPRANOLOL 10 MG TAB PO SCH (21:24)
[2022-12-31] MEDS: LACTULOSE 20 GM/30 ML CUP PO SCH (21:24)
[2022-12-31] MEDS: lamoTRIgine 25 MG TAB PO SCH (21:25)
[2023-01-01 08:10] LABS: INR 2.2 (<1.2); Prothrombin Time 21.4 sec (9.0-12.0)
[2023-01-01 08:23] LABS: Basophils % (A) 0 %; Eosinophils # (A) 0.1 k/uL (0-0.7); Eosinophils % (A) 2 %; HCT 29.8 % (34.0-46.0); HGB 10.2 gm/dL (11.4-16.0); Hypochromasia Slight; Lymphocytes # (A) 0.7 k/uL (1.0-4.8); Lymphocytes % (A) 10 %; MCH 39.5 pg (25.0-35.0); MCHC 34.3 g/dL (31.0-37.0); MCV 115.3 fL (80.0-100.0); Macrocytosis Marked; Mean Platelet Volume 9.8; Monocytes # (A) 0.4 k/uL (0-1.0); Monocytes % (A) 5 %; Neutrophils % (A) 81 %; Poikilocytosis Slight; RBC 2.59 m/uL (3.80-5.40); RDW 14.7 % (11.5-15.5); WBC 7.4 k/uL (3.8-10.6)
[2023-01-01 08:26] LABS: Platelet Count 32 k/uL (150-450)
[2023-01-01 08:26] LABS: ALT 37 U/L (4-34); AST 73 U/L (14-36); African American GFR (CKD) >90 (>60 ml/min/1.73 sqM); Albumin 2.7 g/dL (3.5-5.0); Alkaline Phosphatase 126 U/L (38-126); Anion Gap 7 mmol/L; Blood Urea Nitrogen 17 mg/dL (7-17); Calcium 8.3 mg/dL (8.4-10.2); Carbon Dioxide 29 mmol/L (22-30); Chloride 108 mmol/L (98-107); Glucose 107 mg/dL (74-99); Magnesium 1.9 mg/dL (1.6-2.3); Non-African American GFR(CKD) >90 (>60 ml/min/1.73 sqM); Potassium 3.5 mmol/L (3.5-5.1); Sodium 144 mmol/L (137-145); Total Bilirubin 14.1 mg/dL (0.2-1.3); Total Protein 6.8 g/dL (6.3-8.2)
[2023-01-01] MEDS ORDERED: FUROSEMIDE 40 MG TAB PO SCH (09:00)
[2023-01-01] MEDS ORDERED: SPIRONOLACTONE 25 MG TAB PO SCH (09:00)
[2023-01-01] MEDS: PROPRANOLOL 10 MG TAB PO SCH (09:28)
[2023-01-01] MEDS: FLUoxetine HCL 20 MG CAP PO SCH (09:54)
[2023-01-01] MEDS: MIDODRINE 5 MG TAB PO SCH ×3 (09:54→17:27)
[2023-01-01] MEDS: lamoTRIgine 25 MG TAB PO SCH ×2 (09:54→19:54)
[2023-01-01] MEDS: LACTULOSE 20 GM/30 ML CUP PO SCH ×3 (09:55→19:54)
[2023-01-01] MEDS: THIAMINE 100 MG TAB PO SCH (12:01)
--- NOTE | 2023-01-01 14:50 | P.PN ---
Subjective Progress Note Date: 01/01/23 Hospital Course: 52-year-old female with history of cirrhosis, alcohol use, prior hemorrhagic stroke with left sided weakness presenting with acute encephalopathy. In the ED, patient was hypothermic, rest of the vitals signs were otherwise within normal limits. WBC 6.5, hemoglobin 11.1, platelet 29, INR 1, PT 20.7, potassium 3.5, creatinine 0.72, glucose 169, lactate 2.8, total bilirubin 11.1, AST 80, ALT 40, ammonia 45, troponin negative, urinalysis negative for nitrites and leukocyte esterase, urine toxicology positive for benzodiazepine and marijuana. Head CT did not show any acute process. Chest x-ray independently interpreted, shows no acute process, NG tube in place. Now out. Patient being admitted for seizures as well as acute encephalopathy in the setting of likely decompensated liver failure. Also hypotensive. Rule out SBP. Paracentesis pending. Started on empir ic abx. Subjective: Patient seen and examined at bedside. No acute events overnight. Still le thargic but improving her and daughters. Having bowel movements. Pertinent positives and negatives as discussed above, a complete review of systems was performed and all other systems are negative. Vitals Signs Reviewed. General: nontoxic, no distress, appears at stated age, slow to respond Derm: warm, dry, jaundice Head: atraumatic, normocephalic, symmetric Eyes: icteric sclera, pupils equal round reactive to light ENT: Nose and ears atraumatic Neck: No thyromegaly, supple Mouth: no lip lesion, mucus membranes moist Cardiovascular: S1S2 reg, no murmur, peripheral edema Lungs: clear to auscultation bilateral, no rhonchi, no rales, no wheeze, no accessory muscle use Abdominal: soft, nontender to palpation, distended, umbilical hernia, no guarding, no appreciable organomegaly Ext: no gross muscle atrophy, no contractures Neuro: CN II through XII grossly normal Psych: Cooperative Data Reviewed Today: Pertinent Labs: WBC 7.4, hemoglobin 10.2, platelet 32, INR 2.2, potassium 2.5, creatinine 0.69, T bili 14.1 Imaging: moderate to large volume ascities Assessment and Plan: Patient is critically ill. Active: Acute encephalopathy, likely hepatic Seizures Lactic acidosis, resolved -Encephalopathy likely in the setting of decompensated cirrhosis -Blood cultures pending -Also has moderate to large volume ascites, rule out SBP, paracentesis pending -EEG pending -Neurology consulted -CT head did not show any acute process -IV ativan PRN -seizure precuations -neurochecks -On lactulose Decompensated cirrhosis INR elevated Transaminitis -MELD score is 24 points, 19.6% estimated mortality -FFP and platelets transfuse for paracentesis Macrocytic anemia Thrombocytopenia -continue to trend - likely in the setting of cirrhosis DVT ppx: Not indicated Code status: full code Anticipated discharge place: pending clinical course Anticipated discharge time: pending clinical course Objective - Vital Signs Vital signs: Vital Signs Temp 97.9 F 01/01/23 00:00 Pulse 82 01/01/23 11:38 Resp 18 01/01/23 11:38 BP 104/59 01/01/23 11:38 Pulse Ox 96 01/01/23 11:38 FiO2 Intake & Output 12/31/22 01/01/23 01/01/23 18:59 06:59 18:59 Intake Total 0 Output Total 250 Balance -250 0 Weight 69.853 kg 69.853 kg Intake: Blood Product 0 Ffp 24 Cpd Unit 0 [id number] Output: Urine 250 Other: Voiding Method Indwelling Catheter Diaper # Bowel Movements 1 - Labs CBC & Chem 7: 01/01/23 07:08 01/01/23 07:20 Labs: Abnormal Lab Results - Last 24 Hours (Table) 12/31/22 01/01/23 01/01/23 Range/Units 12:59 07:08 07:20 RBC 2.59 L (3.80-5.40) m/uL Hgb 10.2 L (11.4-16.0) gm/dL Hct 29.8 L (34.0-46.0) % MCV 115.3 H (80.0-100.0) fL MCH 39.5 H (25.0-35.0) pg Plt Count 32 L (150-450) k/uL Lymphocytes # 0.7 L (1.0-4.8) k/uL Macrocytosis Marked A PT 21.4 H (9.0-12.0) sec INR 2.2 H (<1.2) Chloride (98-107) mmol/L Glucose (74-99) mg/dL Plasma Lactic Acid Heladio 2.8 H* (0.7-2.0) mmol/L Calcium (8.4-10.2) mg/dL Total Bilirubin (0.2-1.3) mg/dL AST (14-36) U/L ALT (4-34) U/L Albumin (3.5-5.0) g/dL 01/01/23 Range/Units 07:20 RBC (3.80-5.40) m/uL Hgb (11.4-16.0) gm/dL Hct (34.0-46.0) % MCV (80.0-100.0) fL MCH (25.0-35.0) pg Plt Count (150-450) k/uL Lymphocytes # (1.0-4.8) k/uL Macrocytosis PT (9.0-12.0) sec INR (<1.2) Chloride 108 H (98-107) mmol/L Glucose 107 H (74-99) mg/dL Plasma Lactic Acid Heladio (0.7-2.0) mmol/L Calcium 8.3 L (8.4-10.2) mg/dL Total Bilirubin 14.1 H (0.2-1.3) mg/dL AST 73 H (14-36) U/L ALT 37 H (4-34) U/L Albumin 2.7 L (3.5-5.0) g/dL
--- NOTE | 2023-01-01 20:26 | EEG ---
ELECTROENCEPHALOGRAM REPORT PREAMBLE: This is a 52-year-old female with history of seizure disorder. CURRENT MEDICATIONS: 1. Prozac. 2. Lasix. 3. Lactulose. 4. Lamictal. 5. Ativan. 6. Inderal. 7. Aldactone. EEG FINDINGS: This is a 21-channel digital EEG recorded with video component, utilizing 10/20 international system with referential and bipolar montages. Background consists of moderately well developed and regulated, predominantly 4 to 6 Hz theta activity seen in the bihemispheric region. Background does not seem to be clearly reactive to eye opening or closing. Photic driving response was not seen. Some left temporal focal slowing and some left posterior temporal sharp waves were seen. No electrographic seizure was recorded. Different stages of sleep were not seen. EKG channel showed no obvious arrhythmia. IMPRESSION: This is an abnormal EEG due to: 1. Background slowing of moderate degree, suggestive of generalized cerebral dysfunction as can be seen with encephalopathy or related to diffuse structural brain abnormality. Clinical correlation is recommended. 2. Left posterior temporal sharp waves, sporadic, suggestive of focal cortical neuronal dysfunction with underlying cortical irritability and tendency for seizures. No electrographic seizure was recorded. MMODL / IJN: [id number] /
[2023-01-02] MEDS: MIDODRINE 5 MG TAB PO SCH ×3 (06:37→17:12)
[2023-01-02 07:15] LABS: ALT 34 U/L (4-34); African American GFR (CKD) >90 (>60 ml/min/1.73 sqM); Albumin 2.7 g/dL (3.5-5.0); Anion Gap 6 mmol/L; Blood Urea Nitrogen 15 mg/dL (7-17); Calcium 8.4 mg/dL (8.4-10.2); Carbon Dioxide 26 mmol/L (22-30); Chloride 109 mmol/L (98-107); Glucose 93 mg/dL (74-99); Non-African American GFR(CKD) >90 (>60 ml/min/1.73 sqM); Sodium 141 mmol/L (137-145); Total Bilirubin 14.4 mg/dL (0.2-1.3); Total Protein 6.5 g/dL (6.3-8.2)
[2023-01-02 07:18] LABS: AST 94 U/L (14-36); Alkaline Phosphatase 98 U/L (38-126); Potassium 3.7 mmol/L (3.5-5.1)
[2023-01-02 08:43] LABS: Basophils % (A) 0 %; Eosinophils # (A) 0.1 k/uL (0-0.7); Eosinophils % (A) 2 %; HCT 23.1 % (34.0-46.0); Lymphocytes % (A) 18 %; MCH 39.6 pg (25.0-35.0); MCHC 35.1 g/dL (31.0-37.0); MCV 112.9 fL (80.0-100.0); Mean Platelet Volume 9.3; Monocytes # (A) 0.3 k/uL (0-1.0); Monocytes % (A) 6 %; Neutrophils # (A) 3.8 k/uL (1.3-7.7); Neutrophils % (A) 71 %; RBC 2.04 m/uL (3.80-5.40); RDW 14.4 % (11.5-15.5); WBC 5.4 k/uL (3.8-10.6)
[2023-01-02 08:47] LABS: Macrocytosis Marked; Platelet Count 20 k/uL (150-450)
--- NOTE | 2023-01-02 09:06 | P.CNNES ---
History of Present Illness Consult date: 01/01/23 Requesting physician: Lit Yao Reason for Consult: Seizures History of Present Illness: Patient is a 52-year-old female came to the hospital by ambulance yesterday at 12:44 PM As per EMS flow sheet, when they arrived, patient was with her family, who stated that patient has been in and out of consciousness over the last 30 minutes or so. Family mentioned that she just started a new job and was getting ready when she went into the bathroom and started vomiting. She then sat up and began having diarrhea and at that point was not answering questions normally and was going in or out of consciousness. Upon EMS arrival, patient was still altered and very lethargic. Family mentioned that patient has history of previous strokes and also has a recent closed head injury. EKG showed normal sinus rhythm. Patient then began to have focal style seizure that only affected the left side of her face and left upper arm. The seizure lasted about 35-45 seconds. Patient had no postictal phase and was able to answer questions. However she was slurring her words which family stated was normal. Blood sugar checked was low at 59. Patient was given 12.5 g of dextrose 50% IV. Shortly after the patient began having severe left sided gaze and could not follow along with any commands. Patient was able to still answer questions. Patient's vitals at the scene was blood pressure 125/91, pulse rate 77 respiration 18, saturation 82, blood sugar 59. On arrival, patient's blood sugar was 169, WBC normal hemoglobin 11.1, platelets 29. INR 2.1, PTT 30.4, electrolytes, renal functions are normal, AST 80, ALT 40, ammonia 45, troponin normal, UA negative, urine drug screen positive for benzodiazepine and marijuana. Blood alcohol level negative. Her albumin is low 2.7. Patient at present has been that she has history of seizure for last 2 years. She gets dizzy, nausea, sweaty, jittery but not shakes. She was not very clear about her seizures. Patient had a previous normal EEG on 11/15/2016. Patient has been seen by Dr. Branham on 11/15/2016 for history of alcoholism and seizure disorder. Her first seizure was reported about 4 years prior, (around 2012) and was started on Lamictal but she lost her insurance so she stopped taking it. Patient at that time was given Dilantin loading dose followed by 100 mg 3 times a day. Apparently patient at this time is still taking Lamictal 25 mg twice a day. Patient currently takes Lasix, lactulose, spironolactone, Protonix, thiamine, propranolol 10 mg twice a day, potassium, Lamictal 25 mg twice a day, Prozac and midodrine 2.5 mg every 8 hour. Patient states that she lives with her and parents. She does not use any assistive device at home. Review of Systems All systems: negative Constitutional: Reports fatigue, Reports poor appetite, Reports weight gain Eyes: denies blurred vision, denies pain Ears: deny: decreased hearing Ears, nose, mouth and throat: Denies headache, Denies sore throat Cardiovascular: Denies chest pain, Denies shortness of breath Past Medical History Past Medical History: Asthma, Liver Disease Additional Past Medical History / Comment(s): ascites,paracentesis 01-08-18, low platelets, previous ETOH abuse History of Any Multi-Drug Resistant Organisms: None Reported Past Surgical History: No Surgical Hx Reported Additional Past Surgical History / Comment(s): repair to spleen [place] Ruptured spleen in 1988 Past Anesthesia/Blood Transfusion Reactions: No Reported Reaction Additional Past Anesthesia/Blood Transfusion Reaction / Comment(s): Unsure if had blood transfusion in past Past Psychological History: Anxiety, Bipolar, Depression Additional Psychological History / Comment(s): ETOH use Smoking Status: Current every day smoker Past Alcohol Use History: Abuse, Daily, Heavy Additional Past Alcohol Use History / Comment(s): Stated that pt quit drinking in August 2022 Past Drug Use History: Marijuana Additional Drug Use History / Comment(s): Marijuana use; Smokes a pack a day of cigarettes - Past Family History Sister(s) Additional Family Medical History / Comment(s): closed head injury Mother Family Medical History: Diabetes Mellitus, Hyperlipidemia Medications and Allergies Home Medications Medication Instructions Recorded Confirmed Type FLUoxetine HCL [PROzac] 40 mg PO DAILY 10/01/22 12/31/22 History Midodrine HCl [ProAmantine] 2.5 mg PO Q8H PRN 10/01/22 12/31/22 History Pantoprazole Sodium [Protonix] 40 mg PO DAILY PRN 10/01/22 12/31/22 History Potassium Chloride ER [K-Dur 10] 10 meq PO DAILY 10/01/22 12/31/22 History Propranolol [Inderal] 10 mg PO BID 10/01/22 12/31/22 History Thiamine [Vitamin B-1] 100 mg PO DAILY 10/01/22 12/31/22 History lamoTRIgine [LaMICtal] 25 mg PO BID 10/01/22 12/31/22 History Furosemide [Lasix] 40 mg PO DAILY #30 tab 10/04/22 12/31/22 Rx Lactulose [Cephulac] 30 gm PO TID #120 ml 10/04/22 12/31/22 Rx Spironolactone [Aldactone] 100 mg PO DAILY #30 tab 10/04/22 12/31/22 Rx Ubidecarenone [Coenzyme Q10] 100 mg PO DAILY 12/02/22 12/31/22 History Phytonadione Oral [Vitamin K Oral] 5 mg PO DAILY #15 ml 12/04/22 12/31/22 Rx Allergies Allergy/AdvReac Type Severity Reaction Status Date / Time Penicillins Allergy Swelling Verified 12/31/22 15:32 tongue Sulfa (Sulfonamide Allergy Swelling Verified 12/31/22 15:32 Antibiotics) tongue walnut Allergy Anaphylaxis Verified 12/31/22 15:32 Physical Examination - Vital Signs Vital Signs: Vital Signs Temp Pulse Pulse Resp BP BP Pulse Ox 01/01/23 04:00 89 18 93/59 99 01/01/23 02:00 109 H 20 01/01/23 00:00 97.9 F 109 H 20 95/51 93 L 12/31/22 21:00 94 14 12/31/22 20:57 97.7 F 94 14 89/53 94 L 12/31/22 20:25 91 18 91/67 100 12/31/22 19:10 97.7 F 91 18 99/69 100 12/31/22 18:00 101 H 18 100/52 98 12/31/22 17:00 93 18 97/70 97 12/31/22 16:09 96.4 F L 89 18 119/84 100 12/31/22 15:00 95.2 F L 85 18 113/81 99 12/31/22 13:46 93.4 F L 80 18 123/82 100 12/31/22 13:34 92.5 F L 78 18 123/82 100 12/31/22 12:45 94.3 F L 83 16 120/77 94 L Intake and Output 12/31/22 01/01/23 01/01/23 22:59 06:59 14:59 Output Total 250 Balance -250 Output: Urine 250 Other: Voiding Method Indwelling Catheter Indwelling Catheter # Bowel Movements 1 Weight 69.853 kg Patient is a middle aged female, who appears to have slow mentation, appears encephalopathic. Patient is jaundiced. Patient is slightly encephalopathic. She does get alert awake oriented to place and person. Patient states it is Thursday the . Patient states it is December and the year is 1996. She knows that she is in [facility] in [place]. She states that she just moved from [place]. Speech and language functions are normal. Patient can name and repeat very well. No aphasia or dysarthria. Attention, concentration is slightly decreased and fund of knowledge is difficult to assess because of mentation. On cranial nerve examination, pupils are equal, round and reacting to light, visual martins are full on confrontation, with no neglect on double simultaneous stimulation. Extraocular muscles are intact with no nystagmus. Face is symmetric, tongue protrudes to the midline. Palatal elevation and sensation normal, hearing and shoulder shrug normal, facial sensation normal. On muscle strength testing, there is no pronator drift and the strength is normal in arms and legs distally and proximally. Deep tendon reflexes are symmetric 2 at the biceps, 2 brachioradialis, 3 at the knees, 1 ankles and plantars downgoing bilaterally. Sensory to touch is equal with no neglect on double simultaneous stimulation. Cerebellar function showed no ataxia for [id number] testing. No dysdiadochokinesia. No ataxia for [id number] testing on either side. Tone and bulk of muscles normal. Patient has mild asterixis. Gait deferred.. On general examination, there is no carotid bruit or murmur, S1-S2 audible. Chest is clear on consultation. Abdomen is protuberant, and patient has some clinical hernia visible. No organomegaly, bowel sounds present. Peripheral pulses are present. Mild edema. Results - Laboratory Findings CBC and BMP: 01/01/23 07:08 01/02/23 06:40 Abnormal Lab Findings: Abnormal Labs 12/31/22 12/31/22 12/31/22 12:46 12:59 12:59 RBC 2.88 L Hgb 11.1 L Hct 32.8 L MCV 113.9 H MCH 38.6 H Plt Count 29 L Lymphocytes # 0.9 L Macrocytosis Marked A PT 20.7 H INR 2.1 H APTT 30.4 H Chloride Glucose POC Glucose (mg/dL) 169 H Plasma Lactic Acid Heladio Calcium Total Bilirubin AST ALT Alkaline Phosphatase Ammonia Albumin Urine Protein Urine Bilirubin U Benzodiazepines Scrn U Marijuana (THC) Screen 12/31/22 12/31/22 12/31/22 12:59 12:59 12:59 RBC Hgb Hct MCV MCH Plt Count Lymphocytes # Macrocytosis PT INR APTT Chloride Glucose 144 H POC Glucose (mg/dL) Plasma Lactic Acid Heladio Calcium 8.1 L Total Bilirubin 11.1 H AST 80 H ALT 40 H Alkaline Phosphatase 167 H Ammonia 45 H Albumin 3.1 L Urine Protein Trace H Urine Bilirubin 2+ H U Benzodiazepines Scrn Detected H U Marijuana (THC) Screen Detected H 12/31/22 12/31/22 01/01/23 12:59 13:43 07:08 RBC 2.59 L Hgb 10.2 L Hct 29.8 L MCV 115.3 H MCH 39.5 H Plt Count 32 L Lymphocytes # 0.7 L Macrocytosis Marked A PT INR APTT Chloride Glucose POC Glucose (mg/dL) 141 H Plasma Lactic Acid Heladio 2.8 H* Calcium Total Bilirubin AST ALT Alkaline Phosphatase Ammonia Albumin Urine Protein Urine Bilirubin U Benzodiazepines Scrn U Marijuana (THC) Screen 01/01/23 01/01/23 07:20 07:20 RBC Hgb Hct MCV MCH Plt Count Lymphocytes # Macrocytosis PT 21.4 H INR 2.2 H APTT Chloride 108 H Glucose 107 H POC Glucose (mg/dL) Plasma Lactic Acid Heladio Calcium 8.3 L Total Bilirubin 14.1 H AST 73 H ALT 37 H Alkaline Phosphatase Ammonia Albumin 2.7 L Urine Protein Urine Bilirubin U Benzodiazepines Scrn U Marijuana (THC) Screen Assessment and Plan Assessment: * Seizure disorder came with breakthrough seizures. * Altered mental status, likely due to hepatic encephalopathy. 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 * Elevated liver enzymes * Marijuana use Plan: * Patient has presented with breakthrough seizure. Her most recent Lamictal level was 2.6(2-15) on 12/31/2022. * We will increase Lamictal to 50 mg twice a day. If any concern for thrombocytopenia related to Lamictal, we will consider switching to Keppra. * EEG was performed, which revealed background slowing of moderate degree, assistive of encephalopathy. Left posterior temporal sharp waves, sporadic, suggestive of focal cortical neuronal dysfunction with underlying cortical irritability and tendency for seizures. No lateral graphic seizure were recorded. * Neurology will follow clinically. Recommend patient follow up with her neurologist outpatient. * Other medical management as per IM and other specialties. * Thank you for the consult.
[2023-01-02] MEDS: lamoTRIgine 25 MG TAB PO SCH (11:03)
[2023-01-02] MEDS: PANTOPRAZOLE 40 MG/10 ML VIAL IVP SCH ×2 (11:03→20:29)
[2023-01-02] MEDS: LACTULOSE 20 GM/30 ML CUP PO SCH ×3 (11:03→20:29)
[2023-01-02] MEDS: FLUoxetine HCL 20 MG CAP PO SCH (11:04)
[2023-01-02] MEDS: THIAMINE 100 MG TAB PO SCH (11:04)
[2023-01-02] MEDS ORDERED: LORazepam 2 MG/ML INJ IV STA (13:42)
--- NOTE | 2023-01-02 14:11 | P.PN ---
Subjective Progress Note Date: 01/02/23 Hospital Course: 52-year-old female with history of cirrhosis, alcohol use, prior hemorrhagic stroke with left sided weakness presenting with acute encephalopathy. In the ED, patient was hypothermic, rest of the vitals signs were otherwise within normal limits. WBC 6.5, hemoglobin 11.1, platelet 29, INR 1, PT 20.7, potassium 3.5, creatinine 0.72, glucose 169, lactate 2.8, total bilirubin 11.1, AST 80, ALT 40, ammonia 45, troponin negative, urinalysis negative for nitrites and leukocyte es terase, urine toxicology positive for benzodiazepine and marijuana. Head CT did not show any acute process. Chest x-ray independently interpreted, shows no acute process, NG tube in place. Now out. Patient being admitted for seizures as well as acute encephalopathy in the setting of likely decompensated liver failure. Also hypotensive. Rule out SBP. Paracentesis pending. Started on empiric abx. Subjective: Patient seen and examined at bedside. No acute events overnight. Patient having episodes of delusions and paranoia. Pertinent positives and negatives as discussed above, a complete review of systems was performed and all other systems are negative. Vitals Signs Reviewed. General: nontoxic, no distress, appears at stated age Derm: warm, dry, jaundice Head: atraumatic, normocephalic, symmetric Eyes: icteric sclera, pupils equal round reactive to light ENT: Nose and ears atraumatic Neck: No thyromegaly, supple Mouth: no lip lesion, mucus membranes moist Cardiovascular: S1S2 reg, no murmur, peripheral edema Lungs: clear to auscultation bilateral, no rhonchi, no rales, no wheeze, no accessory muscle use Abdominal: soft, nontender to palpation, distended, umbilical hernia, no guarding, no appreciable organomegaly Ext: no gross muscle atrophy, no contractures Neuro: CN II through XII grossly normal Psych: Paranoia and delusional Data Reviewed Today: Pertinent Labs: WBC hemoglobin 8.1, INR 2, potassium 3.7, creatinine 063, total bilirubin 14.4 Imaging: No new imaging Assessment and Plan: Patient is critically ill. Active: Acute encephalopathy, likely hepatic Seizures Lactic acidosis, resolved Delusions and paranoia, posssible delerium as well -Encephalopathy likely in the setting of decompensated cirrhosis -Blood cultures pending -Also has moderate to large volume ascites, rule out SBP, paracentesis pending -EEG did not show any epileptiform discharges -Neurology consulted, pending recs -IV ativan PRN for seizures only -seizure precuations -neurochecks -On lactulose Decompensated cirrhosis INR elevated Transaminitis -MELD score is 24 points, 19.6% estimated mortality -FFP given yesterday and platelets transfuse for paracentesis Macrocytic anemia Thrombocytopenia -continue to trend -likely in the setting of cirrhosis -no current evidence of upper GI bleed -on protonix 40 IV BID DVT ppx: Not indicated Code status: full code Anticipated discharge place: pending clinical course Anticipated discharge time: pending clinical course Objective - Vital Signs Vital signs: Vital Signs Temp 98.0 F 01/02/23 13:52 Pulse 79 01/02/23 13:52 Resp 16 01/02/23 13:52 BP 102/62 01/02/23 13:52 Pulse Ox 97 01/02/23 13:52 FiO2 Intake & Output 01/01/23 01/02/23 01/02/23 18:59 06:59 18:59 Intake Total 286 0 0 Balance 286 0 0 Intake: Oral 0 Blood Product 286 0 Unit 0 Ffp 24 Cpd Unit 286 [id number] Other: Voiding Method Diaper Toilet Diaper # Voids 2 4 1 # Bowel Movements 2 4 - Labs CBC & Chem 7: 01/02/23 06:47 01/02/23 06:40 Labs: Abnormal Lab Results - Last 24 Hours (Table) 01/02/23 01/02/23 01/02/23 Range/Units 06:40 06:47 06:47 RBC 2.04 L (3.80-5.40) m/uL Hgb 8.1 L D (11.4-16.0) gm/dL Hct 23.1 L (34.0-46.0) % MCV 112.9 H (80.0-100.0) fL MCH 39.6 H (25.0-35.0) pg Plt Count 20 L (150-450) k/uL Macrocytosis Marked A PT 20.0 H (9.0-12.0) sec INR 2.0 H (<1.2) Chloride 109 H (98-107) mmol/L Total Bilirubin 14.4 H (0.2-1.3) mg/dL AST 94 H (14-36) U/L Albumin 2.7 L (3.5-5.0) g/dL Microbiology - Last 24 Hours (Table) 12/31/22 13:30 Blood Culture - Preliminary Blood
[2023-01-02 15:34] LABS: HGB 8.1 gm/dL (11.4-16.0)
--- NOTE | 2023-01-02 20:27 | P.PN ---
Subjective Progress Note Date: 01/02/23 Patient was seen for a follow-up. Patient is sitting on the couch by the window, with her . Patient's mother was also present today. They mentioned that patient has history of seizures for last 12 years. Her seizures starts with sweating, tightening up, he stiffens up and slight shaking with deep breathing. Sometimes she bites her tongue. No urinary incontinence. Her last seizure was in May 2022, when she had a hospital stroke and a seizure while she was in [place]. They're not sure of the details. Patient has long-standing history of alcoholism. She has been sober for 5 months. Objective - Vital Signs Vital signs: Vital Signs Temp 98.0 F 01/02/23 14:12 Pulse 89 01/02/23 14:55 Resp 18 01/02/23 14:55 BP 96/60 01/02/23 14:55 Pulse Ox 97 01/02/23 14:55 FiO2 Intake & Output 01/01/23 01/02/23 01/02/23 18:59 06:59 18:59 Intake Total 286 0 0 Balance 286 0 0 Intake: Oral 0 Blood Product 286 0 Unit 0 Ffp 24 Cpd Unit 286 [id number] Other: Voiding Method Diaper Toilet Diaper # Voids 2 4 1 # Bowel Movements 2 4 - Exam Patient continues to be icteric. Her mental status, speech and language functions are normal. She is more alert today. Examination otherwise remains u nchanged. - Labs CBC & Chem 7: 01/02/23 06:47 01/02/23 06:40 Labs: Abnormal Lab Results - Last 24 Hours (Table) 01/02/23 01/02/23 01/02/23 Range/Units 06:40 06:47 06:47 RBC 2.04 L (3.80-5.40) m/uL Hgb 8.1 L D (11.4-16.0) gm/dL Hct 23.1 L (34.0-46.0) % MCV 112.9 H (80.0-100.0) fL MCH 39.6 H (25.0-35.0) pg Plt Count 20 L (150-450) k/uL Macrocytosis Marked A PT 20.0 H (9.0-12.0) sec INR 2.0 H (<1.2) Chloride 109 H (98-107) mmol/L Total Bilirubin 14.4 H (0.2-1.3) mg/dL AST 94 H (14-36) U/L Albumin 2.7 L (3.5-5.0) g/dL Microbiology - Last 24 Hours (Table) 12/31/22 13:30 Blood Culture - Preliminary Blood Assessment and Plan Assessment: * Seizure disorder came with breakthrough seizures. * Altered mental status, likely due to hepatic encephalopathy. 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 * Elevated liver enzymes * Marijuana use Plan: * Patient has presented with breakthrough seizure. Her most recent Lamictal level was 2.6 (2-15) on 12/31/2022. * Patient's dose of Lamictal was increased to 50 mg twice a day yesterday. Her platelet count has further decrease down to 20,000. Lamictal can be associated with thrombocytopenia. We will stop Lamictal, and start Keppra 500 mg twice a day. Discussed with patient and her family, and agree with switching from Lamictal to Keppra. She has never tried Keppra in the past. * EEG was performed, which revealed background slowing of moderate degree, assistive of encephalopathy. Left posterior temporal sharp waves, sporadic, suggestive of focal cortical neuronal dysfunction with underlying cortical i rritability and tendency for seizures. No lateral graphic seizure were recorded. * Other medical management as per IM and other specialties. * Recommend patient follow up with neurologist outpatient.
[2023-01-02] MEDS: levETIRAcetam 500 MG TAB PO SCH (20:30)
[2023-01-03] MEDS: MIDODRINE 5 MG TAB PO SCH ×3 (06:28→17:24)
[2023-01-03 07:49] LABS: Basophils % (A) 1 %; Eosinophils # (A) 0.1 k/uL (0-0.7); Eosinophils % (A) 3 %; HCT 21.4 % (34.0-46.0); HGB 7.3 gm/dL (11.4-16.0); Lymphocytes % (A) 21 %; MCH 39.1 pg (25.0-35.0); MCHC 34.1 g/dL (31.0-37.0); MCV 114.6 fL (80.0-100.0); Macrocytosis Marked; Mean Platelet Volume 8.4; Monocytes # (A) 0.4 k/uL (0-1.0); Monocytes % (A) 8 %; Neutrophils # (A) 2.9 k/uL (1.3-7.7); Neutrophils % (A) 64 %; RBC 1.86 m/uL (3.80-5.40); RDW 14.3 % (11.5-15.5); WBC 4.5 k/uL (3.8-10.6)
[2023-01-03 08:01] LABS: ALT 36 U/L (4-34); AST 77 U/L (14-36); African American GFR (CKD) >90 (>60 ml/min/1.73 sqM); Albumin 2.6 g/dL (3.5-5.0); Alkaline Phosphatase 129 U/L (38-126); Anion Gap 8 mmol/L; Blood Urea Nitrogen 11 mg/dL (7-17); Calcium 8.1 mg/dL (8.4-10.2); Carbon Dioxide 27 mmol/L (22-30); Chloride 106 mmol/L (98-107); Glucose 113 mg/dL (74-99); Non-African American GFR(CKD) >90 (>60 ml/min/1.73 sqM); Potassium 2.8 mmol/L (3.5-5.1); Sodium 141 mmol/L (137-145); Total Protein 6.3 g/dL (6.3-8.2)
[2023-01-03] MEDS: LACTULOSE 20 GM/30 ML CUP PO SCH ×3 (08:25→20:15)
[2023-01-03] MEDS: FLUoxetine HCL 20 MG CAP PO SCH (08:26)
[2023-01-03] MEDS: levETIRAcetam 500 MG TAB PO SCH ×2 (08:26→20:14)
[2023-01-03] MEDS: PANTOPRAZOLE 40 MG/10 ML VIAL IVP SCH ×2 (08:26→20:16)
[2023-01-03] MEDS: THIAMINE 100 MG TAB PO SCH (08:26)
[2023-01-03 08:31] LABS: Polychromasia Present
[2023-01-03 08:36] LABS: Platelet Count 24 k/uL (150-450)
[2023-01-03] MEDS: POTASSIUM CHLORIDE ER 20 MEQ TAB.ER PO SCH ×2 (11:27→13:19)
--- NOTE | 2023-01-03 14:08 | P.PN ---
Subjective Progress Note Date: 01/03/23 Hospital Course: 52-year-old female with history of cirrhosis, alcohol use, prior hemorrhagic stroke with left sided weakness presenting with acute encephalopathy. In the ED, patient was hypothermic, rest of the vitals signs were otherwise within normal limits. WBC 6.5, hemoglobin 11.1, platelet 29, INR 1, PT 20.7, potassium 3.5, creatinine 0.72, glucose 169, lactate 2.8, total bilirubin 11.1, AST 80, ALT 40, ammonia 45, troponin negative, urinalysis negative for nitrites and leukocyte esterase, urine toxicology positive for benzodiazepine and marijuana. Head CT did not show any acute process. Chest x-ray independently interpreted, shows no acute process, NG tube in place. Now out. Patient being admitted for seizures as well as acute encephalopathy in the setting of likely decompensated liver failure. Also hypotensive. Rule out SBP. Paracentesis done 2.9L removed. Howeve r, fluid was disposed, and no studies available. Started on empiric abx. Subjective: Patient seen and examined at bedside. No acute events overnight. Mental status improved Pertinent positives and negatives as discussed above, a complete review of systems was performed and all other systems are negative. Vitals Signs Reviewed. General: nontoxic, no distress, appears at stated age Derm: warm, dry, jaundice Head: atraumatic, normocephalic, symmetric Eyes: icteric sclera, pupils equal round reactive to light ENT: Nose and ears atraumatic Neck: No thyromegaly, supple Mouth: no lip lesion, mucus membranes moist Cardiovascular: S1S2 reg, no murmur, peripheral edema Lungs: clear to auscultation bilateral, no rhonchi, no rales, no wheeze, no accessory muscle use Abdominal: soft, nontender to palpation, distended, umbilical hernia, no guarding, no appreciable organomegaly Ext: no gross muscle atrophy, no contractures Neuro: CN II through XII grossly normal Psych: Paranoia and delusional Data Reviewed Today: Pertinent Labs: WBC 4.5, hemoglobin 7.3, platelet 24, potassium 2.8, total bilirubin 15 Imaging: No new imaging Assessment and Plan: Patient is critically ill. Active: Acute encephalopathy, likely hepatic Seizures Lactic acidosis, resolved Delusions and paranoia, likely acute delirium -Encephalopathy likely in the setting of decompensated cirrhosis -Blood cultures no growth to date -Had paracentesis, removing 2.9 L, however sample sent -EEG did not show any epileptiform discharges -Neurology consulted, Lamictal discontinued, started on Keppra -IV ativan PRN for seizures only -seizure precuations -neurochecks -On lactulose Decompensated cirrhosis INR elevated Transaminitis -MELD score is 24 points, 19.6% estimated mortality Macrocytic anemia Thrombocytopenia -continue to trend , CBC tomorrow -likely in the setting of cirrhosis -no current evidence of upper GI bleed -on protonix 40 IV BID -Was transfused FFP and 1 platelets this admission Hypokalemia -80 mEq oral potassium given -Magnesium level and CMP DVT ppx: Not indicated Code status: full code Anticipated discharge place: pending clinical course Anticipated discharge time: pending clinical course Objective - Vital Signs Vital signs: Vital Signs Temp 98.3 F 01/03/23 11:25 Pulse 87 01/03/23 11:25 Resp 16 01/03/23 11:25 BP 107/62 01/03/23 11:25 Pulse Ox 95 01/03/23 11:25 FiO2 Intake & Output 01/02/23 01/03/23 01/03/23 18:59 06:59 18:59 Intake Total 322 20 Balance 322 20 Intake: IV 20 Invasive Line 5 10 Invasive Line 6 10 Blood Product 322 Platelet Pheresis Pas 322 Psoralen Unit [id number] Other: Voiding Method Toilet Toilet Toilet Diaper Diaper Diaper # Voids 1 1 1 # Bowel Movements 1 1 - Labs CBC & Chem 7: 01/03/23 07:16 01/03/23 07:16 Labs: Abnormal Lab Results - Last 24 Hours (Table) 01/02/23 01/03/23 01/03/23 Range/Units 06:47 07:16 07:16 RBC 1.86 L (3.80-5.40) m/uL Hgb 8.1 L D 7.3 L (11.4-16.0) gm/dL Hct 21.4 L (34.0-46.0) % MCV 114.6 H (80.0-100.0) fL MCH 39.1 H (25.0-35.0) pg Plt Count 24 L (150-450) k/uL Macrocytosis Marked A Potassium 2.8 L (3.5-5.1) mmol/L Glucose 113 H (74-99) mg/dL Calcium 8.1 L (8.4-10.2) mg/dL Total Bilirubin 15.0 H (0.2-1.3) mg/dL AST 77 H (14-36) U/L ALT 36 H (4-34) U/L Alkaline Phosphatase 129 H (38-126) U/L Albumin 2.6 L (3.5-5.0) g/dL Microbiology - Last 24 Hours (Table) 12/31/22 13:30 Blood Culture - Preliminary Blood
[2023-01-04] MEDS: MIDODRINE 5 MG TAB PO SCH ×3 (05:48→17:28)
[2023-01-04] MEDS: PANTOPRAZOLE 40 MG/10 ML VIAL IVP SCH ×2 (08:21→20:02)
[2023-01-04] MEDS: levETIRAcetam 500 MG TAB PO SCH ×2 (08:21→20:02)
[2023-01-04] MEDS: FLUoxetine HCL 20 MG CAP PO SCH (08:21)
[2023-01-04] MEDS: LACTULOSE 20 GM/30 ML CUP PO SCH ×3 (08:21→20:00)
[2023-01-04] MEDS: THIAMINE 100 MG TAB PO SCH (08:21)
--- NOTE | 2023-01-04 12:15 | P.PN ---
Subjective Progress Note Date: 01/04/23 Hospital Course: 52-year-old female with history of cirrhosis, alcohol use, prior hemorrhagic stroke with left sided weakness presenting with acute encephalopathy. In the ED, patient was hypothermic, rest of the vitals signs were otherwise within normal limits. WBC 6.5, hemoglobin 11.1, platelet 29, INR 1, PT 20.7, potassium 3.5, creatinine 0.72, glucose 169, lactate 2.8, total bilirubin 11.1, AST 80, ALT 40, ammonia 45, troponin negative, urinalysis negative for nitrites and leukocyte es terase, urine toxicology positive for benzodiazepine and marijuana. Head CT did not show any acute process. Chest x-ray independently interpreted, shows no acute process, NG tube in place. Now out. Patient being admitted for seizures as well as acute encephalopathy in the setting of likely decompensated liver failure. Also hypotensive. Rule out SBP. Paracentesis done 2.9L removed. However, fluid was disposed, and no studies available. Started on empiric abx. Subjective: Patient seen and examined at bedside. No acute events overnight. Pertinent positives and negatives as discussed above, a complete review of systems was performed and all other systems are negative. Vitals Signs Reviewed. General: nontoxic, no distress, appears at stated age Derm: warm, dry, jaundice Head: atraumatic, normocephalic, symmetric Eyes: icteric sclera, pupils equal round reactive to light ENT: Nose and ears atraumatic Neck: No thyromegaly, supple Mouth: no lip lesion, mucus membranes moist Cardiovascular: S1S2 reg, no murmur, peripheral edema Lungs: clear to auscultation bilateral, no rhonchi, no rales, no wheeze, no accessory muscle use Abdominal: soft, nontender to palpation, distended, umbilical hernia, no guarding, no appreciable organomegaly Ext: no gross muscle atrophy, no contractures Neuro: CN II through XII grossly normal Psych: Paranoia and delusional Data Reviewed Today: Pertinent Labs: CBC and CMP pending, will be reviewed when available Imaging: No new imaging Assessment and Plan: Patient is critically ill. Active: Acute encephalopathy, likely hepatic Seizures Lactic acidosis, resolved Delusions and paranoia, likely acute delirium -Encephalopathy likely in the setting of decompensated cirrhosis -Blood cultures no growth to date -Had paracentesis, removing 2.9 L, however sample not sent -EEG did not show any epileptiform discharges -Neurology consulted, Lamictal discontinued, started on Keppra -IV ativan PRN for seizures only -seizure precuations -neurochecks -On lactulose Decompensated cirrhosis INR elevated Transaminitis -MELD score is 24 points, 19.6% estimated mortality Macrocytic anemia Thrombocytopenia -Likely in the setting of cirrhosis as well as possibly in the setting of Lamictal use -likely in the setting of cirrhosis -no current evidence of upper GI bleed -on protonix 40 IV BID -Was transfused FFP and 1 platelets this admission -CBC pending Hypokalemia - CMP pending DVT ppx: Not indicated Code status: full code Anticipated discharge place: pending clinical course Anticipated discharge time: pending clinical course Objective - Vital Signs Vital signs: Vital Signs Temp 98.0 F 01/04/23 11:51 Pulse 88 01/04/23 11:51 Resp 15 01/04/23 11:51 BP 98/44 01/04/23 11:51 Pulse Ox 97 01/04/23 11:51 FiO2 Intake & Output 01/03/23 01/04/23 01/04/23 18:59 06:59 18:59 Intake Total 20 10 Balance 20 10 Intake: IV 20 10 Invasive Line 5 10 Invasive Line 6 10 10 Other: Voiding Method Toilet Toilet Toilet Diaper Diaper Diaper # Voids 1 1 1 # Bowel Movements 1 1 1 - Labs CBC & Chem 7: 01/03/23 07:16 01/03/23 07:16 Labs: Microbiology - Last 24 Hours (Table) 12/31/22 13:30 Blood Culture - Preliminary Blood
--- NOTE | 2023-01-04 12:15 | P.PN ---
Subjective Progress Note Date: 01/03/23 Patient was seen for a follow-up. Patient is laying in the bed. Patient is tolerating Keppra well. Patient has developed hallucination, but hallucinations started prior to starting Keppra. On reviewing the records, it appears that patient yesterday at 2:40 PM was hallucinating/paranoid thinking, that her and her mother were trying to kill her. Patient did not receive Keppra until 8:30 PM last night. Today patient was having delusion that her told her that their garage has blown up although it has never happened, and patient's never told her. Family has mentioned that patient has history of seizures for last 12 years. Her seizures starts with sweating, tightening up, he stiffens up and slight shaking with deep breathing. Sometimes she bites her tongue. No urinary incontinence. Her last seizure was in May 2022, when she had a hospital stroke and a seizure while she was in [place]. They're not sure of the details. Patient has long-standing history of alcoholism. She has been sober for 5 months. Objective - Vital Signs Vital signs: Vital Signs Temp 98.3 F 01/03/23 11:25 Pulse 87 01/03/23 11:25 Resp 16 01/03/23 11:25 BP 107/62 01/03/23 11:25 Pulse Ox 95 01/03/23 11:25 FiO2 Intake & Output 01/02/23 01/03/23 01/03/23 18:59 06:59 18:59 Intake Total 322 20 Balance 322 20 Intake: IV 20 Invasive Line 5 10 Invasive Line 6 10 Blood Product 322 Platelet Pheresis Pas 322 Psoralen Unit [id number] Other: Voiding Method Toilet Toilet Toilet Diaper Diaper Diaper # Voids 1 1 1 # Bowel Movements 1 1 - Exam Patient continues to be icteric. Her mental status, speech and language functions are normal. She is more alert today. Examination otherwise remains unchanged. - Labs CBC & Chem 7: 01/03/23 07:16 01/03/23 07:16 Labs: Abnormal Lab Results - Last 24 Hours (Table) 01/02/23 01/03/23 01/03/23 Range/Units 06:47 07:16 07:16 RBC 1.86 L (3.80-5.40) m/uL Hgb 8.1 L D 7.3 L (11.4-16.0) gm/dL Hct 21.4 L (34.0-46.0) % MCV 114.6 H (80.0-100.0) fL MCH 39.1 H (25.0-35.0) pg Plt Count 24 L (150-450) k/uL Macrocytosis Marked A Potassium 2.8 L (3.5-5.1) mmol/L Glucose 113 H (74-99) mg/dL Calcium 8.1 L (8.4-10.2) mg/dL Total Bilirubin 15.0 H (0.2-1.3) mg/dL AST 77 H (14-36) U/L ALT 36 H (4-34) U/L Alkaline Phosphatase 129 H (38-126) U/L Albumin 2.6 L (3.5-5.0) g/dL Microbiology - Last 24 Hours (Table) 12/31/22 13:30 Blood Culture - Preliminary Blood Assessment and Plan Assessment: * Seizure disorder came with breakthrough seizures. * Altered mental status, likely due to hepatic encephalopathy. 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 * Elevated liver enzymes * Marijuana use Plan: * Patient has presented with breakthrough seizure. Her most recent Lamictal level was 2.6 (2-15) on 12/31/2022. * Patient's dose of Lamictal was increased to 50 mg twice a day 01/01/2023. Her platelet count has further decrease down to 20,000. Lamictal can be associated with thrombocytopenia. Lamictal has been discontinued and patient started on Keppra 500 mg twice a day since 01/02/2023. Patient is complaining of some paranoia/hallucinations, but probably not related to Keppra, as she has hallucination prior to starting Keppra. * We will continue Keppra and observe. * EEG was performed, which revealed background slowing of moderate degree, assistive of encephalopathy. Left posterior temporal sharp waves, sporadic, suggestive of focal cortical neuronal dysfunction with underlying cortical irritability and tendency for seizures. No lateral graphic seizure were recorded. * Other medical management as per IM and other specialties. * Recommend patient follow up with neurologist outpatient.
[2023-01-04 12:50] LABS: ALT 46 U/L (4-34); AST 103 U/L (14-36); African American GFR (CKD) >90 (>60 ml/min/1.73 sqM); Albumin 2.6 g/dL (3.5-5.0); Alkaline Phosphatase 131 U/L (38-126); Anion Gap 6 mmol/L; Blood Urea Nitrogen 12 mg/dL (7-17); Calcium 8.2 mg/dL (8.4-10.2); Carbon Dioxide 26 mmol/L (22-30); Chloride 109 mmol/L (98-107); Glucose 104 mg/dL (74-99); Magnesium 1.9 mg/dL (1.6-2.3); Non-African American GFR(CKD) 89 (>60 ml/min/1.73 sqM); Potassium 3.7 mmol/L (3.5-5.1); Sodium 141 mmol/L (137-145); Total Bilirubin 12.3 mg/dL (0.2-1.3); Total Protein 6.4 g/dL (6.3-8.2)
[2023-01-04 12:57] LABS: Basophils % (A) 1 %; Eosinophils # (A) 0.1 k/uL (0-0.7); Eosinophils % (A) 3 %; HCT 21.1 % (34.0-46.0); HGB 7.3 gm/dL (11.4-16.0); Hypochromasia Slight; Lymphocytes # (A) 0.7 k/uL (1.0-4.8); Lymphocytes % (A) 13 %; MCH 40.4 pg (25.0-35.0); MCHC 34.3 g/dL (31.0-37.0); MCV 117.7 fL (80.0-100.0); Macrocytosis Marked; Mean Platelet Volume 9.4; Monocytes # (A) 0.4 k/uL (0-1.0); Monocytes % (A) 8 %; Neutrophils # (A) 3.8 k/uL (1.3-7.7); Neutrophils % (A) 73 %; RDW 15.2 % (11.5-15.5); WBC 5.2 k/uL (3.8-10.6)
[2023-01-04 12:59] LABS: Platelet Count 23 k/uL (150-450)
--- NOTE | 2023-01-05 00:39 | P.PN ---
Subjective Progress Note Date: 01/04/23 Patient was seen for a follow-up. Patient's mother was also present today. Patient has not had any more hallucinations. She is tolerating Keppra very well. Family has mentioned that patient has history of seizures for last 12 years. Her seizures starts with sweating, tightening up, he stiffens up and slight shaking with deep breathing. Sometimes she bites her tongue. No urinary incontinence. Her last seizure was in May 2022, when she had a hospital stroke and a seizure while she was in [place]. They're not sure of the details. Patient has long-standing history of alcoholism. She has been sober for 5 months. Objective - Vital Signs Vital signs: Vital Signs Temp 98 F 01/04/23 20:00 Pulse 84 01/04/23 20:00 Resp 18 01/04/23 20:00 BP 105/67 01/04/23 20:00 Pulse Ox 94 L 01/04/23 20:00 FiO2 Intake & Output 01/04/23 01/04/23 01/05/23 06:59 18:59 06:59 Intake Total 368 Balance 368 Intake: IV 10 Invasive Line 6 10 Oral 358 Other: Voiding Method Toilet Toilet Toilet Diaper Diaper Diaper # Voids 1 2 # Bowel Movements 1 2 3 - Exam Patient continues to be icteric. Her mental status, speech and language functions are normal. She is more alert today. Patient's gait is normal. - Labs CBC & Chem 7: 01/04/23 12:10 01/04/23 12:10 Labs: Abnormal Lab Results - Last 24 Hours (Table) 01/04/23 01/04/23 Range/Units 12:10 12:10 RBC 1.80 L (3.80-5.40) m/uL Hgb 7.3 L (11.4-16.0) gm/dL Hct 21.1 L (34.0-46.0) % MCV 117.7 H (80.0-100.0) fL MCH 40.4 H (25.0-35.0) pg Plt Count 23 L (150-450) k/uL Lymphocytes # 0.7 L (1.0-4.8) k/uL Macrocytosis Marked A Chloride 109 H (98-107) mmol/L Glucose 104 H (74-99) mg/dL Calcium 8.2 L (8.4-10.2) mg/dL Total Bilirubin 12.3 H (0.2-1.3) mg/dL AST 103 H (14-36) U/L ALT 46 H (4-34) U/L Alkaline Phosphatase 131 H (38-126) U/L Albumin 2.6 L (3.5-5.0) g/dL Microbiology - Last 24 Hours (Table) 12/31/22 13:30 Blood Culture - Preliminary Blood Assessment and Plan Assessment: * Seizure disorder came with breakthrough seizures. * Altered mental status, likely due to hepatic encephalopathy. 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 * Elevated liver enzymes * Marijuana use Plan: * Patient has presented with breakthrough seizure. Her most recent Lamictal level was 2.6 (2-15) on 12/31/2022. * Patient's dose of Lamictal was increased to 50 mg twice a day on 01/01/2023. Her platelet count has further decrease down to 20,000. Lamictal can be ass ociated with thrombocytopenia. Lamictal has been discontinued and patient started on Keppra 500 mg twice a day since 01/02/2023. Patient is complaining of some paranoia/hallucinations, but probably not related to Keppra, as she has hallucination prior to starting Keppra. Her platelets are staying at around 23,000. * We will continue Keppra. Stay off Lamictal. * EEG was performed, which revealed background slowing of moderate degree, assistive of encephalopathy. Left posterior temporal sharp waves, sporadic, suggestive of focal cortical neuronal dysfunction with underlying cortical irritability and tendency for seizures. No lateral graphic seizure were recorded. * Other medical management as per IM and other specialties. * Recommend patient follow up with neurologist outpatient. * Neurology will sign off. Please reconsult if any concerns. Dr. Josh Franklin starting neurology service from the morning.
[2023-01-05 05:02] VITALS: RESP 16
[2023-01-05] MEDS: MIDODRINE 5 MG TAB PO SCH ×3 (05:03→16:56)
[2023-01-05] MEDS: LACTULOSE 20 GM/30 ML CUP PO SCH ×2 (09:06→15:44)
[2023-01-05] MEDS: PANTOPRAZOLE 40 MG/10 ML VIAL IVP SCH (09:06)
[2023-01-05] MEDS: THIAMINE 100 MG TAB PO SCH (09:06)
[2023-01-05] MEDS: FLUoxetine HCL 20 MG CAP PO SCH (09:06)
[2023-01-05] MEDS: levETIRAcetam 500 MG TAB PO SCH (09:06)
--- NOTE | 2023-01-05 10:39 | US ---
Ultrasound-guided paracentesis. DATE OF EXAM: 01/02/2023 CLINICAL HISTORY: Ascites The procedure was discussed with the patient. The risks, complications, benefits, and alternatives we re discussed and any questions were answered. Informed consent was obtained. The patient was placed s upine on the ultrasound table and prepped and draped in the usual sterile fashion. All elements of maximal barrier technique were utilized. Under ultrasound guidance, access into the right lower quadrant was obtained, via the paracentesis catheter system and direct ultrasound guidanc e. Approximately 4 liters of straw-colored fluid was removed. The patient was stable throughout the proc edure and remained stable upon discharge from Department of Radiology. IMPRESSION: Successful paracentesis under ultrasound guidance.
[2023-01-05 11:48] VITALS: TEMP 97.9
[2023-01-05 14:00] LABS: Anisocytosis Slight; Basophils % (A) 0 %; Eosinophils # (A) 0.2 k/uL (0-0.7); Eosinophils % (A) 3 %; HCT 21.7 % (34.0-46.0); HGB 7.5 gm/dL (11.4-16.0); Hypochromasia Slight; Lymphocytes # (A) 0.9 k/uL (1.0-4.8); Lymphocytes % (A) 14 %; MCH 40.1 pg (25.0-35.0); MCHC 34.6 g/dL (31.0-37.0); MCV 115.8 fL (80.0-100.0); Mean Platelet Volume 10.3; Monocytes # (A) 0.4 k/uL (0-1.0); Monocytes % (A) 7 %; Neutrophils # (A) 4.6 k/uL (1.3-7.7); Neutrophils % (A) 73 %; Poikilocytosis Slight; RBC 1.87 m/uL (3.80-5.40); RDW 17.1 % (11.5-15.5); WBC 6.4 k/uL (3.8-10.6)
[2023-01-05 14:12] LABS: Macrocytosis Marked; Platelet Count 28 k/uL (150-450)
[2023-01-05 14:13] LABS: ALT 44 U/L (4-34); AST 96 U/L (14-36); African American GFR (CKD) >90 (>60 ml/min/1.73 sqM); Albumin 2.6 g/dL (3.5-5.0); Alkaline Phosphatase 127 U/L (38-126); Anion Gap 7 mmol/L; Blood Urea Nitrogen 11 mg/dL (7-17); Calcium 7.9 mg/dL (8.4-10.2); Carbon Dioxide 24 mmol/L (22-30); Chloride 107 mmol/L (98-107); Glucose 149 mg/dL (74-99); Magnesium 1.9 mg/dL (1.6-2.3); Non-African American GFR(CKD) >90 (>60 ml/min/1.73 sqM); Potassium 3.1 mmol/L (3.5-5.1); Sodium 138 mmol/L (137-145); Total Bilirubin 12.3 mg/dL (0.2-1.3); Total Protein 6.1 g/dL (6.3-8.2)
[2023-01-05] MEDS ORDERED: POTASSIUM CHLORIDE ER 20 MEQ TAB.ER PO STA (14:34)
--- NOTE | 2023-01-05 15:17 | P.PN ---
Subjective Progress Note Date: 01/05/23 Discharge Diagnosis: Acute encephalopathy, likely hepatic Seizures Lactic acidosis Delusions and paranoia, likely acute delirium Decompensated cirrhosis INR elevated Transaminitis Macrocytic anemia Thrombocytopenia Hypokalemia Hospital Course: 52-year-old female with history of cirrhosis, alcohol use, prior hemorrhagic stroke with left sided weakness presenting with acute encephalopathy. In the ED, patient was hypothermic, rest of the vitals signs were otherwise within normal limits. WBC 6.5, hemoglobin 11.1, platelet 29, INR 1, PT 20.7, potassium 3.5, creatinine 0.72, glucose 169, lactate 2.8, total bilirubin 11.1, AST 80, ALT 40, ammonia 45, troponin negative, urinalysis negative for nitrites and leukocyte esterase, urine toxicology positive for benzodiazepine and marijuana. Head CT did not show any acute process. Chest x-ray independently interpreted, shows no acute process, NG tube in place. Now out. Patient being admitted for seizures as well as acute encephalopathy in the setting of likely decompensated liver failure. Also hypotensive. Rule out SBP. Paracentesis done 2.9L removed. However, fluid was disposed, and no studies available. Started on empiric abx. Completed 5 day course of ceftriaxone. Was also evaluated by neurology. EEG was completed which did not show any epileptiform discharges, however, did see left posterior temporal sharp waves suggestive of focal cortical neuronal dysfunction and underlying cortical irritability and tendency for seizures. Patient was also thrombocytopenic, Lamictal was discontinued. She was started on Keppra. Due to hypotension, Midodrin dose was increased. At the time of discharge she is stable. However she needs close follow-up with GI to resume her diuretics. She is also on beta aung, presumably for esophageal varices. Due to her hypotension, currently being held. Her hemoglobin at the time of discharge was stable. She has a high risk for mortality over the next 3 months. She is also at high risk for readmission if not appropriately followed up outpatient. Patient seen and examined at bedside. Vital signs reviewed and stable. General: nontoxic, no distress, appears at stated age Derm: warm, dry, jaundice Head: atraumatic, normocephalic, symmetric Eyes: EOMI, no lid lag, icteric sclera Mouth: no lip lesion, mucus membranes moist Cardiovascular: S1S2 reg, no murmur Lungs: CTA bilateral, no rhonchi, no rales , no accessory muscle use Abdominal: soft, nontender to palpation, distended, umbilical hernia, no guarding, no appreciable organomegaly Ext: no gross muscle atrophy, no edema, no contractures Neuro: CN II-XI grossly intact, no focal neuro deficits Psych: Alert, oriented, appropriate affect A total of 55 minutes of time were spent preparing this complex discharge summary. Patient was discharged on 01/05/23 at 1442 . Objective - Vital Signs Vital signs: Vital Signs Temp 97.9 F 01/05/23 11:35 Pulse 87 01/05/23 11:35 Resp 16 01/05/23 11:35 BP 106/68 01/05/23 11:35 Pulse Ox 96 01/05/23 11:35 FiO2 Intake & Output 01/04/23 01/05/23 01/05/23 18:59 06:59 18:59 Intake Total 368 358 Balance 368 358 Intake: IV 10 10 Invasive Line 6 10 10 Intake, IV Titration 50 Amount cefTRIAXone 2 gm In 50 Sodium Chloride 0.9% 50 ml @ 100 mls/hr IVPB Q24HR [facility] Rx#:[id number] Oral 358 298 Other: Voiding Method Toilet Toilet Toilet Diaper Diaper Diaper # Voids 2 1 # Bowel Movements 2 1 1 - Labs CBC & Chem 7: 01/05/23 13:24 01/05/23 13:22 Labs: Abnormal Lab Results - Last 24 Hours (Table) 01/05/23 01/05/23 Range/Units 13:22 13:24 RBC 1.87 L (3.80-5.40) m/uL Hgb 7.5 L (11.4-16.0) gm/dL Hct 21.7 L (34.0-46.0) % MCV 115.8 H (80.0-100.0) fL MCH 40.1 H (25.0-35.0) pg RDW 17.1 H (11.5-15.5) % Plt Count 28 L (150-450) k/uL Lymphocytes # 0.9 L (1.0-4.8) k/uL Macrocytosis Marked A Potassium 3.1 L (3.5-5.1) mmol/L Glucose 149 H (74-99) mg/dL Calcium 7.9 L (8.4-10.2) mg/dL Total Bilirubin 12.3 H (0.2-1.3) mg/dL AST 96 H (14-36) U/L ALT 44 H (4-34) U/L Alkaline Phosphatase 127 H (38-126) U/L Total Protein 6.1 L (6.3-8.2) g/dL Albumin 2.6 L (3.5-5.0) g/dL
--- NOTE | 2023-01-05 15:17 | P.DS ---
Providers Date of admission: 12/31/22 17:12 Expected date of discharge: 01/05/23 Attending physician: Lit Yao MD Consults: 12/31/22 17:14 Consult Physician Urgent Consulting Provider: Femi Lujan Consult Reason/Comments: seizures Do you want consulting provider notified?: Yes Primary care physician: Cherry Gutierrez MD Hospital Course: Discharge Diagnosis: Acute encephalopathy, likely hepatic Seizures Lactic acidosis Delusions and paranoia, likely acute delirium Decompensated cirrhosis INR elevated Transaminitis Macrocytic anemia Thrombocytopenia Hypokalemia Hospital Course: 52-year-old female with history of cirrhosis, alcohol use, prior hemorrhagic stroke with left sided weakness presenting with acute encephalopathy. In the ED, patient was hypothermic, rest of the vitals signs were otherwise within normal limits. WBC 6.5, hemoglobin 11.1, platelet 29, INR 1, PT 20.7, potassium 3.5, creatinine 0.72, glucose 169, lactate 2.8, total bilirubin 11.1, AST 80, ALT 40, ammonia 45, troponin negative, urinalysis negative for nitrites and leukocyte esterase, urine toxicology positive for benzodiazepine and marijuana. Head CT did not show any acute process. Chest x-ray independently interpreted, shows no acute process, NG tube in place. Now out. Patient being admitted for seizures as well as acute encephalopathy in the setting of likely decompensated liver failure. Also hypotensive. Rule out SBP. Paracentesis done 2.9L removed. However, fluid was disposed, and no studies available. Started on empiric abx. Completed 5 day course of ceftriaxone. Was also evaluated by neurology. EEG was completed which did not show any epileptiform discharges, however, did see left posterior temporal sharp waves suggestive of focal cortical neuronal dysfunction and underlying cortical irritability and tendency for seizures. Patient was also thrombocytopenic, Lamictal was discontinued. She was started on Keppra. Due to hypotension, Midodrin dose was increased. At the time of discharge she is stable. However she needs close follow-up with GI to resume her diuretics. She is also on beta aung, presumably for esophageal varices. Due to her hypotension, currently being held. Her hemoglobin at the time of discharge was stable. She has a high risk for mortality over the next 3 months. She is also at high risk for readmission if not appropriately followed up outpatient. Patient seen and examined at bedside. Vital signs reviewed and stable. General: nontoxic, no distress, appears at stated age Derm: warm, dry, jaundice Head: atraumatic, normocephalic, symmetric Eyes: EOMI, no lid lag, icteric sclera Mouth: no lip lesion, mucus membranes moist Cardiovascular: S1S2 reg, no murmur Lungs: CTA bilateral, no rhonchi, no rales , no accessory muscle use Abdominal: soft, nontender to palpation, distended, umbilical hernia, no guarding, no appreciable organomegaly Ext: no gross muscle atrophy, no edema, no contractures Neuro: CN II-XI grossly intact, no focal neuro deficits Psych: Alert, oriented, appropriate affect A total of 55 minutes of time were spent preparing this complex discharge summary. Patient was discharged on 01/05/23 at 1442 . Patient Condition at Discharge: Stable Plan - Discharge Summary Discharge Rx Participant: Yes New Discharge Prescriptions: New levETIRAcetam [Keppra] 500 mg PO Q12HR #60 tab Midodrine [ProAmatine] 5 mg PO AC-TID #90 tab Continue FLUoxetine HCL [PROzac] 40 mg PO DAILY Pantoprazole Sodium [Protonix] 40 mg PO DAILY PRN #60 tab PRN Reason: Heartburn Potassium Chloride ER [K-Dur 10] 10 meq PO DAILY Thiamine [Vitamin B-1] 100 mg PO DAILY Lactulose [Cephulac] 30 gm PO TID #120 ml Ubidecarenone [Coenzyme Q10] 100 mg PO DAILY Phytonadione Oral [Vitamin K Oral] 5 mg PO DAILY #15 ml Discontinued Midodrine HCl [ProAmantine] 2.5 mg PO Q8H PRN PRN Reason: Low BP lamoTRIgine [LaMICtal] 25 mg PO BID Spironolactone [Aldactone] 100 mg PO DAILY #30 tab Propranolol [Inderal] 10 mg PO BID Furosemide [Lasix] 40 mg PO DAILY #30 tab Discharge Medication List FLUoxetine HCL [PROzac] 40 mg PO DAILY 10/01/22 [History] Potassium Chloride ER [K-Dur 10] 10 meq PO DAILY 10/01/22 [History] Thiamine [Vitamin B-1] 100 mg PO DAILY 10/01/22 [History] Lactulose [Cephulac] 30 gm PO TID #120 ml 10/04/22 [Rx] Ubidecarenone [Coenzyme Q10] 100 mg PO DAILY 12/02/22 [History] Phytonadione Oral [Vitamin K Oral] 5 mg PO DAILY #15 ml 12/04/22 [Rx] Midodrine [ProAmatine] 5 mg PO AC-TID #90 tab 01/05/23 [Rx] Pantoprazole Sodium [Protonix] 40 mg PO DAILY PRN #60 tab 01/05/23 [Rx] levETIRAcetam [Keppra] 500 mg PO Q12HR #60 tab 01/05/23 [Rx] Follow up Appointment(s)/Referral(s): Juliana Alcantar MD [STAFF PHYSICIAN] - 1 Week None,Stated [REFERRING] - 1-2 days Kim Gutierrez DO [REFERRING] - 1-2 Days Patient Instructions/Handouts: Seizure/Epilepsy Discharge Instructions & Follow-Up, Cirrhosis (DC), Ascites (DC) Activity/Diet/Wound Care/Special Instructions: Please follow up with PCP and Liver doctor. You may need repeat paracentesis (removal of fluid from belly). Discharge Disposition: HOME SELF-CARE
[2023-01-05 17:02] VITALS: BP 102/58; PULSE 92
== END 2023-01-05 17:30 | disposition home or self-care (01) | DRG 280 ==
LOC: EC 12:44 → 3SCARD 17:12
PROVIDERS: ADMIT Student in an Organized Health Care Education/Training Program; ATTEND Student in an Organized Health Care Education/Training Program
PROC: 0D9670Z Drainage of Stomach with Drainage Device, Via Natural or Artificial Opening (ICD-10-PCS; 2022-12-31)
PROC: 30233K1 Transfusion of Nonautologous Frozen Plasma into Peripheral Vein, Percutaneous Approach (ICD-10-PCS; 2023-01-01)
PROC: 30233R1 Transfusion of Nonautologous Platelets into Peripheral Vein, Percutaneous Approach (ICD-10-PCS; 2023-01-02)
PROC: 0W9G3ZZ Drainage of Peritoneal Cavity, Percutaneous Approach (ICD-10-PCS; principal; 2023-01-05)
DX: K76.82 Hepatic encephalopathy (principal); K70.40 Alcoholic hepatic failure without coma; G40.909 Epilepsy, unspecified, not intractable, without status epilepticus; D68.9 Coagulation defect, unspecified; D53.9 Nutritional anemia, unspecified; D69.59 Other secondary thrombocytopenia; E87.6 Hypokalemia; F10.21 Alcohol dependence, in remission; F17.210 Nicotine dependence, cigarettes, uncomplicated; F22 Delusional disorders; F31.9 Bipolar disorder, unspecified; F41.9 Anxiety disorder, unspecified; R47.81 Slurred speech; I69.254 Hemiplegia and hemiparesis following other nontraumatic intracranial hemorrhage affecting left non-dominant side; K70.31 Alcoholic cirrhosis of liver with ascites; E87.20 Acidosis, unspecified; I85.10 Secondary esophageal varices without bleeding; R68.0 Hypothermia, not associated with low environmental temperature; Z28.311 Partially vaccinated for COVID-19; Z28.21 Immunization not carried out because of patient refusal; Z88.0 Allergy status to penicillin; Z88.2 Allergy status to sulfonamides; Z91.018 Allergy to other foods; Z82.49 Family history of ischemic heart disease and other diseases of the circulatory system; Z79.899 Other long term (current) drug therapy
CPT/HCPCS: 36415; 49083; 51702; 70450; 71045; 76705; 80053; 80175; 80306; 80320; 81003; 82140; 83605; 83735; 84484; 85025; 85610; 85730; 86850; 86900; 86901; 87040; 93005; 94760; 95816; 96361; 96374; 96375; 99291

== ENCOUNTER 2023-01-14 01:04 | Inpatient (IN) | payer OTHER ==
--- NOTE | 2023-01-14 02:03 | ED ---
General Adult HPI - General Chief complaint: Abdominal Pain Stated complaint: Cirrhosis of liver Time Seen by Provider: 01/14/23 01:25 Source: patient Mode of arrival: ambulatory Limitations: no limitations - History of Present Illness Initial comments: Dictation was produced using [employer] dictation software. please excuse any grammatical, word or spelling errors. Chief Complaint: 52-year-old female presents with chief complaint of memory loss, jaundice and abdominal pain History of Present Illness: Patient's 52-year-old female she has past medical history of alcohol abuse and liver disease. Patient states that she is here for what she reports as loss of short-term memory. States that his been ongoing for the last 1-2 days. Patient reports mild cramping to the right flank. Denies any nausea vomiting. No fever or constitutional symptoms. Patient reports that she has not had a paracentesis in several weeks. She does not get paracentesis regularly. The ROS documented in this emergency department record has been reviewed and confirmed by me. Those systems with pertinent positive or negative responses have been documented in the HPI. All other systems are other negative and/or noncontributory. - Related Data Home Medications Medication Instructions Recorded Confirmed FLUoxetine HCL [PROzac] 40 mg PO DAILY 10/01/22 12/31/22 Potassium Chloride ER [K-Dur 10] 10 meq PO DAILY 10/01/22 12/31/22 Thiamine [Vitamin B-1] 100 mg PO DAILY 10/01/22 12/31/22 Ubidecarenone [Coenzyme Q10] 100 mg PO DAILY 12/02/22 12/31/22 Previous Rx's Medication Instructions Recorded Lactulose [Cephulac] 30 gm PO TID #120 ml 10/04/22 Phytonadione Oral [Vitamin K Oral] 5 mg PO DAILY #15 ml 12/04/22 Midodrine [ProAmatine] 5 mg PO AC-TID #90 tab 01/05/23 Pantoprazole Sodium [Protonix] 40 mg PO DAILY PRN #60 tab 01/05/23 levETIRAcetam [Keppra] 500 mg PO Q12HR #60 tab 01/05/23 Allergies Allergy/AdvReac Type Severity Reaction Status Date / Time Penicillins Allergy Swelling Verified 01/14/23 01:15 tongue Sulfa (Sulfonamide Allergy Swelling Verified 01/14/23 01:15 Antibiotics) tongue walnut Allergy Anaphylaxis Verified 01/14/23 01:15 Review of Systems ROS Statement: Those systems with pertinent positive or pertinent negative responses have been documented in the HPI. ROS Other: All systems not noted in ROS Statement are negative. Past Medical History Past Medical History: Asthma, Liver Disease Additional Past Medical History / Comment(s): ascites,paracentesis 01-08-18, low platelets, previous ETOH abuse History of Any Multi-Drug Resistant Organisms: None Reported Past Surgical History: No Surgical Hx Reported Additional Past Surgical History / Comment(s): repair to spleen [place] Ruptured spleen in 1988 Past Anesthesia/Blood Transfusion Reactions: No Reported Reaction Additional Past Anesthesia/Blood Transfusion Reaction / Comment(s): Unsure if had blood transfusion in past Past Psychological History: Anxiety, Bipolar, Depression Smoking Status: Current every day smoker Past Alcohol Use History: Abuse, Daily, Heavy Past Drug Use History: Marijuana - Past Family History Sister(s) Additional Family Medical History / Comment(s): closed head injury Mother Family Medical History: Diabetes Mellitus, Hyperlipidemia General Exam - General Exam Comments Initial Comments: PHYSICAL EXAM: General Impression: Alert and oriented x3, not in acute distress, jaundice, asterixis HEENT: Normocephalic atraumatic, extra-ocular movements intact, pupils equal and reactive to light bilaterally, mucous membranes moist. Cardiovascular: Heart regular rate and rhythm Chest: Able to complete full sentences, no retractions, no tachypnea Abdomen: abdomen soft, non-tender, non-distended, positive fluid wave, no organomegaly Musculoskeletal: Pulses present and equal in all extremities, no peripheral edema Motor: no focal deficits noted Neurological: CN II-XII grossly intact, no focal motor or sensory deficits noted Skin: Intact with no visualized rashes Psych: Normal affect and mood Limitations: no limitations Course Vital Signs 01/14/23 01/14/23 01/14/23 01:12 02:26 02:31 Temperature 98.5 F 98.0 F Pulse Rate 100 98 Respiratory 18 18 Rate Blood Pressure 121/71 116/67 O2 Sat by Pulse 97 97 97 Oximetry 01/14/23 03:00 Temperature Pulse Rate Respiratory Rate Blood Pressure 115/67 O2 Sat by Pulse 96 Oximetry EKG Findings - EKG Comments: EKG Findings:: My EKG interpretation: Ventricular rate 99, sinus rhythm,. 134, QRS 85, QTc 445. No TN prolongation, no QTC prolongation, no ST or T-wave changes noted. Overall, this EKG is unremarkable Medical Decision Making - Medical Decision Making Was pt. sent in by a medical professional or institution (DIANNE Smith, REVOLVING INVENTORY CLERK, urgent care, hospital, or group home...) When possible be specific @ -No Did you speak to anyone other than the patient for history (EMS, parent, family, police, friend...)? What history was obtained from this source @ -No Did you review nursing and triage notes (agree or disagree)? Why? @ -I reviewed and agree with nursing and triage notes Were old charts reviewed (outside hosp., previous admission, EMS record, old EKG, old radiological studies, urgent care reports/EKG's, group home records)? Report findings @ -No old charts were reviewed Differential Diagnosis (chest pain, altered mental status, abdominal pain women, abdominal pain men, vaginal bleeding, musculoskeletal, weakness, fever, dyspnea, syncope, headache, dizziness, GI bleed, back pain, seizure, CVA, palpatations, mental health)? @ -Differential Altered Mental Status: Hypoglycemia, DKA, hypercapnia, ETOH, overdose, CO poisoning, trauma, myxedema coma, HTN encephalopathy, infection, encephalitis, psychosis, intercranial hemorrhage, hepatic encephalopathy, meningitis, CVA, this is not meant to be an all-inclusive list EKG interpreted by me (3pts min.). @ -See above X-rays interpreted by me (1pt min.). @ -None done CT interpreted by me (1pt min.). @ -Computed tomography scan of brain is unremarkable U/S interpreted by me (1pt. min.). @ -None done What testing was considered but not performed or refused? (CT, X-rays, U/S, labs)? Why? @ -None What meds were considered but not given or refused? Why? @ -None Did you discuss the management of the patient with other professionals (professionals i.e. DIANNE Smith, REVOLVING INVENTORY CLERK, lab, RT, psych nurse, social director, senior system operator, teacher, enforcement officer, complex case manager)? Give summary @ - discussed with hospitalist for admission Was smoking cessation discussed for >3mins.? @ -No Was critical care preformed (if so, how long)? @ -No Were there social determinants of health that impacted care today? How? (Homelessness, low income, unemployed, alcoholism, drug addiction, t ransportation, low edu. Level, literacy, decrease access to med. care, long-term, rehab)? @ -No Was there de-escalation of care discussed even if they declined (Discuss DNR or withdrawal of care, Hospice)? DNR status @ -No What co-morbidities impacted this encounter? (DM, HTN, Smoking, COPD, CAD, Cancer, CVA, ARF, Chemo, Hep., AIDS, mental health diagnosis, sleep apnea, morbid obesity)? @ -None Was patient admitted / discharged? Hospital course, mention meds given and route, prescriptions, significant lab abnormalities, going to OR and other pertinent info. @ -2-year-old female presents to emergency department with new onset jaundice. She has history of alcoholism, and cirrhosis. Vital signs upon arrival are within acceptable limits. Laboratory evaluation shows stable CBC. INR 2.0 which is her baseline. Patient has extremely elevated bilirubin levels. Lactic acidosis of 2.7 with a secondary to decreased lactate clearance secondary to hepatitis. Urinalysis is negative. Patient be admitted for new-onset jaundice. GI will be consulted. Undiagnosed new problem with uncertain prognosis? @ -No Drug Therapy requiring intensive monitoring for toxicity (Heparin, Nitro, Insulin, Cardizem)? @ -No Were any procedures done? @ -No Diagnosis/symptom? Acute, or Chronic, or Acute on Chronic? Uncomplicated (without systemic symptoms) or Complicated (systemic symptoms)? @ -New-onset jaundice Side effects of treatment? @ -No Exacerbation, Progression, or Severe Exacerbation? @ -No Poses a threat to life or bodily function? How? (Chest pain, USA, ID, pneumonia, PE, COPD, DKA, ARF, appy, cholecystitis, CVA, Diverticulitis, Homicidal, Suicidal, threat to staff... and all critical care pts) @ -yes - Lab Data Result diagrams: 01/14/23 02:18 01/14/23 02:18 Lab Results 01/14/23 01/14/23 01/14/23 Range/Units 02:18 02:18 02:18 WBC 6.3 (3.8-10.6) k/uL RBC 1.97 L (3.80-5.40) m/uL Hgb 8.1 L (11.4-16.0) gm/dL Hct 22.9 L (34.0-46.0) % MCV 116.2 H (80.0-100.0) fL MCH 41.2 H (25.0-35.0) pg MCHC 35.4 (31.0-37.0) g/dL RDW 18.0 H (11.5-15.5) % Plt Count 30 L (150-450) k/uL MPV 9.2 Neutrophils % 72 % Lymphocytes % 15 % Monocytes % 6 % Eosinophils % 3 % Basophils % 0 % Neutrophils # 4.6 (1.3-7.7) k/uL Lymphocytes # 0.9 L (1.0-4.8) k/uL Monocytes # 0.4 (0-1.0) k/uL Eosinophils # 0.2 (0-0.7) k/uL Basophils # 0.0 (0-0.2) k/uL Hypochromasia Slight Poikilocytosis Moderate Anisocytosis Slight Macrocytosis Marked A PT (10.0-12.5) sec INR (<1.2) APTT (22.0-30.0) sec Sodium 136 L (137-145) mmol/L Potassium 3.8 (3.5-5.1) mmol/L Chloride 106 (98-107) mmol/L Carbon Dioxide 21 L (22-30) mmol/L Anion Gap 9 mmol/L BUN 11 (7-17) mg/dL Creatinine 0.69 (0.52-1.04) mg/dL Est GFR (CKD-EPI)AfAm >90 (>60 ml/min/1.73 sqM) Est GFR (CKD-EPI)NonAf >90 (>60 ml/min/1.73 sqM) Glucose 106 H (74-99) mg/dL Plasma Lactic Acid Heladio 2.7 H* (0.7-2.0) mmol/L Calcium 8.5 (8.4-10.2) mg/dL Magnesium 1.9 (1.6-2.3) mg/dL Total Bilirubin 18.6 H* (0.2-1.3) mg/dL Conjugated Bilirubin 5.6 H (0.0-0.3) mg/dL Unconjugated Bilirubin 9.0 H (0.0-1.1) mg/dL Delta Bilirubin 4.0 H (0.0-0.2) mg/dL AST 95 H (14-36) U/L ALT 40 H (4-34) U/L Alkaline Phosphatase 137 H (38-126) U/L Ammonia <9 (<30) umol/L Total Protein 7.5 (6.3-8.2) g/dL Albumin 3.1 L (3.5-5.0) g/dL Lipase 241 (23-300) U/L Urine Color Urine Appearance (Clear) Urine pH (5.0-8.0) Ur Specific [place] (1.001-1.035) Urine Protein (Negative) Urine Glucose (UA) (Negative) Urine Ketones (Negative) Urine Blood (Negative) Urine Nitrite (Negative) Urine Bilirubin (Negative) Urine Urobilinogen (<2.0) mg/dL Ur Leukocyte Esterase (Negative) Urine RBC (0-5) /hpf Urine WBC (0-5) /hpf Ur Squamous Epith Cells (0-4) /hpf Amorphous Sediment (None) /hpf Urine Bacteria (None) /hpf Hyaline Casts (0-2) /lpf Urine Mucus (None) /hpf Serum Alcohol <10 mg/dL 01/14/23 01/14/23 Range/Units 02:18 03:32 WBC (3.8-10.6) k/uL RBC (3.80-5.40) m/uL Hgb (11.4-16.0) gm/dL Hct (34.0-46.0) % MCV (80.0-100.0) fL MCH (25.0-35.0) pg MCHC (31.0-37.0) g/dL RDW (11.5-15.5) % Plt Count (150-450) k/uL MPV Neutrophils % % Lymphocytes % % Monocytes % % Eosinophils % % Basophils % % Neutrophils # (1.3-7.7) k/uL Lymphocytes # (1.0-4.8) k/uL Monocytes # (0-1.0) k/uL Eosinophils # (0-0.7) k/uL Basophils # (0-0.2) k/uL Hypochromasia Poikilocytosis Anisocytosis Macrocytosis PT 20.5 H (10.0-12.5) sec INR 2.0 H (<1.2) APTT 29.1 (22.0-30.0) sec Sodium (137-145) mmol/L Potassium (3.5-5.1) mmol/L Chloride (98-107) mmol/L Carbon Dioxide (22-30) mmol/L Anion Gap mmol/L BUN (7-17) mg/dL Creatinine (0.52-1.04) mg/dL Est GFR (CKD-EPI)AfAm (>60 ml/min/1.73 sqM) Est GFR (CKD-EPI)NonAf (>60 ml/min/1.73 sqM) Glucose (74-99) mg/dL Plasma Lactic Acid Heladio (0.7-2.0) mmol/L Calcium (8.4-10.2) mg/dL Magnesium (1.6-2.3) mg/dL Total Bilirubin (0.2-1.3) mg/dL Conjugated Bilirubin (0.0-0.3) mg/dL Unconjugated Bilirubin (0.0-1.1) mg/dL Delta Bilirubin (0.0-0.2) mg/dL AST (14-36) U/L ALT (4-34) U/L Alkaline Phosphatase (38-126) U/L Ammonia (<30) umol/L Total Protein (6.3-8.2) g/dL Albumin (3.5-5.0) g/dL Lipase (23-300) U/L Urine Color Brown Urine Appearance Cloudy H (Clear) Urine pH 6.0 (5.0-8.0) Ur Specific [place] 1.014 (1.001-1.035) Urine Protein Negative (Negative) Urine Glucose (UA) Negative (Negative) Urine Ketones Negative (Negative) Urine Blood Negative (Negative) Urine Nitrite Negative (Negative) Urine Bilirubin 2+ H (Negative) Urine Urobilinogen 3.0 (<2.0) mg/dL Ur Leukocyte Esterase Negative (Negative) Urine RBC 1 (0-5) /hpf Urine WBC 2 (0-5) /hpf Ur Squamous Epith Cells 18 H (0-4) /hpf Amorphous Sediment Occasional H (None) /hpf Urine Bacteria Occasional H (None) /hpf Hyaline Casts 10 H (0-2) /lpf Urine Mucus Occasional H (None) /hpf Serum Alcohol mg/dL Disposition Clinical Impression: Jaundice Disposition: ADMITTED IP TO THIS HOSP Condition: Fair Referrals: Zack Gutierrez MD [Primary Care Provider] - 1-2 days Decision Time: 04:10
[2023-01-14 02:46] LABS: Anisocytosis Slight; Basophils % (A) 0 %; Eosinophils # (A) 0.2 k/uL (0-0.7); Eosinophils % (A) 3 %; HCT 22.9 % (34.0-46.0); HGB 8.1 gm/dL (11.4-16.0); Hypochromasia Slight; Lymphocytes # (A) 0.9 k/uL (1.0-4.8); Lymphocytes % (A) 15 %; MCH 41.2 pg (25.0-35.0); MCHC 35.4 g/dL (31.0-37.0); MCV 116.2 fL (80.0-100.0); Macrocytosis Marked; Mean Platelet Volume 9.2; Monocytes # (A) 0.4 k/uL (0-1.0); Monocytes % (A) 6 %; Neutrophils # (A) 4.6 k/uL (1.3-7.7); Neutrophils % (A) 72 %; Platelet Count 30 k/uL (150-450); Poikilocytosis Moderate; RBC 1.97 m/uL (3.80-5.40); WBC 6.3 k/uL (3.8-10.6)
[2023-01-14 02:55] LABS: Lactic Acid, Venous 2.7 mmol/L (0.7-2.0)
[2023-01-14 02:56] LABS: ALT 40 U/L (4-34); African American GFR (CKD) >90 (>60 ml/min/1.73 sqM); Alcohol <10 mg/dL; Anion Gap 9 mmol/L; Bilirubin, Conjugated 5.6 mg/dL (0.0-0.3); Blood Urea Nitrogen 11 mg/dL (7-17); Calcium 8.5 mg/dL (8.4-10.2); Carbon Dioxide 21 mmol/L (22-30); Chloride 106 mmol/L (98-107); Glucose 106 mg/dL (74-99); Lipase 241 U/L (23-300); Magnesium 1.9 mg/dL (1.6-2.3); Non-African American GFR(CKD) >90 (>60 ml/min/1.73 sqM); Sodium 136 mmol/L (137-145)
[2023-01-14 02:57] LABS: Potassium 3.8 mmol/L (3.5-5.1)
[2023-01-14 02:58] LABS: AST 95 U/L (14-36); Albumin 3.1 g/dL (3.5-5.0); Alkaline Phosphatase 137 U/L (38-126); Total Bilirubin 18.6 mg/dL (0.2-1.3); Total Protein 7.5 g/dL (6.3-8.2)
[2023-01-14 03:22] LABS: Partial Thromboplastin Time 29.1 sec (22.0-30.0); Prothrombin Time 20.5 sec (10.0-12.5)
[2023-01-14 04:05] LABS: Amorphous Sediment,Urine Occasional /hpf; Appearance,Urine Cloudy (Clear); Bacteria,Urine Occasional /hpf; Bilirubin,Urine 2+ (Negative); Blood,Urine Negative (Negative); Color,Urine Brown; Glucose,Urine (UA) Negative (Negative); Hyaline Casts,Urine 10 /lpf (0-2); Ketones,Urine Negative (Negative); Leukocyte Esterase,Urine Negative (Negative); Mucus,Urine Occasional /hpf; Nitrite,Urine Negative (Negative); Protein,Urine Negative (Negative); RBC,Urine 1 /hpf (0-5); Specific Gravity,Urine 1.014 (1.001-1.035); Squamous Epithelial Cell,Urine 18 /hpf (0-4); WBC,Urine 2 /hpf (0-5)
--- NOTE | 2023-01-14 04:05 | CT ---
EXAM: CT Head Without Intravenous Contrast CLINICAL HISTORY: ITS.REASON CT Reason: ams TECHNIQUE: Axial computed tomography images of the head/brain without intravenous contrast. CTDI is 49.1 mGy and DLP is 1080 mGy-cm. This CT exam was performed using one or more of the following dose reduction techniques: automated exposure control, adjustment of the mA and/or kV according to patient size, and/or use of iterative reconstruction technique. COMPARISON: 12/31/2022 FINDINGS: Brain: No hemorrhage or mass effect. Similar right frontal convexity subdural hygroma versus volume loss. Ventricles: No hydrocephalus. Bones/joints: Unremarkable. Soft tissues: Unremarkable. Sinuses: No air fluid level. Mastoid air cells: Clear. IMPRESSION: No acute hemorrhage, hydrocephalus, or mass effect. Similar right frontal convexity subdural hygroma versus volume loss.
[2023-01-14] MEDS ORDERED: NALOXONE 0.4 MG/ML 1 ML VIAL IV PRN (04:07)
[2023-01-14] MEDS ORDERED: SODIUM CHLORIDE 0.9% 1,000 ML IV SCH (04:15)
[2023-01-14] MEDS ORDERED: PANTOPRAZOLE 40 MG TABLET PO PRN (09:25)
[2023-01-14] MEDS ORDERED: FLUoxetine HCL 20 MG CAP PO SCH (09:30)
[2023-01-14] MEDS ORDERED: NON FORMULARY DRUG (Ubidecarenone [Coenzyme Q10] 50 MG Capsule) PO SCH (09:30)
[2023-01-14] MEDS: FUROSEMIDE 40 MG TAB PO SCH (09:45)
[2023-01-14] MEDS: SPIRONOLACTONE 25 MG TAB PO SCH (09:45)
[2023-01-14] MEDS: LACTULOSE 20 GM/30 ML CUP PO SCH ×3 (09:45→20:52)
[2023-01-14] MEDS: POTASSIUM CHLORIDE ER 10 MEQ TAB.ER.PRT PO SCH (11:11)
[2023-01-14] MEDS: PHYTONADIONE ORAL 5 MG/5 ML ORAL.SYRG PO SCH (11:11)
[2023-01-14] MEDS: levETIRAcetam 500 MG TAB PO SCH ×2 (11:11→20:52)
[2023-01-14] MEDS: THIAMINE 100 MG TAB PO SCH (11:11)
[2023-01-14] MEDS: MIDODRINE 5 MG TAB PO SCH ×2 (13:45→16:33)
--- NOTE | 2023-01-14 14:33 | P.CONS ---
History of Present Illness - Reason for Consult Consult date: 01/14/23 Jaundice Requesting physician: Alpesh Shah - Chief Complaint Abdominal pain - History of Present Illness This is a pleasant 52-year-old female with a known history of alcoholic cirrhosis of the liver who has followed with Dr. Alcantar. Patient came into the emergency department with concerns of abdominal pain and short-term memory loss. Last hospital admission was in November of this shear for concerns of upper GI bleed. At that time she underwent EGD with no active upper GI bleed, small mid and distal esophageal varices with no stigmata of recent bleed. Moderate to severe portal hypertensive gastropathy. The patient again had presented to the emergency department 2 weeks ago with concerns for hepatic encephalopathy and ascites. She underwent a paracentesis on 01/05/2023 with 4 L of fluid removed. She was not sent home on any diuretics, however her states that she has been taking her lactulose and other medications as prescribed. She is significantly jaundiced, she is alert and oriented. She denies any shortness of breath or chest pain no nausea or vomiting. Most of her discomfort is the right flank and right upper abdomen. Labs WBCs 6.3 hemoglobin 8.1 hematocrit 22.9 platelet count 30,000 INR 2.0 sodium 136 potassium 3.8 lactic acid 2.7/1.6 and AST 95 DOT 40 total bilirubin 18.6 alkaline phosphatase 137 ammonia less than 9 Review of Systems REVIEW OF SYSTEMS: CARDIOPULMONARY: No chest pain or shortness of breath. Gastrointestinal: Right flank pain. Mild ascites. No nausea or vomiting. No hematemesis, coffee-ground emesis. No rectal bleeding, or melena. GENITOURINARY: No dysuria or hematuria. MUSCULOSKELETAL: Reports normal range of motion. SKIN: No rashes. No jaundice. ENDOCRINE: No chills, fevers. No excessive weight gain or loss. No polydipsia or polyuria. PSYCHIATRIC: Unremarkable. NEUROLOGY: Complaints of short-term memory loss. Denies dizziness, headache. ENT: Vision unremarkable. CONSTITUTIONAL: No recent weight loss. No fever, chills, night sweats. Past Medical History Past Medical History: Asthma, Liver Disease Additional Past Medical History / Comment(s): ascites,paracentesis 01-08-18, low platelets, previous ETOH abuse History of Any Multi-Drug Resistant Organisms: None Reported Past Surgical History: No Surgical Hx Reported Additional Past Surgical History / Comment(s): repair to spleen [place] Ruptured spleen in 1988 Past Anesthesia/Blood Transfusion Reactions: No Reported Reaction Additional Past Anesthesia/Blood Transfusion Reaction / Comm: Unsure if had blood transfusion in past Smoking Status: Current every day smoker - Past Family History Sister(s) Additional Family Medical History / Comment(s): closed head injury Mother Family Medical History: Diabetes Mellitus, Hyperlipidemia Medications and Allergies Home Medications Medication Instructions Recorded Confirmed Type FLUoxetine HCL [PROzac] 40 mg PO DAILY 10/01/22 01/14/23 History Potassium Chloride ER [K-Dur 10] 10 meq PO DAILY 10/01/22 01/14/23 History Thiamine [Vitamin B-1] 100 mg PO DAILY 10/01/22 01/14/23 History Lactulose [Cephulac] 30 gm PO TID #120 ml 10/04/22 01/14/23 Rx Ubidecarenone [Coenzyme Q10] 100 mg PO DAILY 12/02/22 01/14/23 History Phytonadione Oral [Vitamin K Oral] 5 mg PO DAILY #15 ml 12/04/22 01/14/23 Rx Midodrine [ProAmatine] 5 mg PO AC-TID #90 tab 01/05/23 01/14/23 Rx Pantoprazole Sodium [Protonix] 40 mg PO DAILY PRN #60 tab 01/05/23 01/14/23 Rx levETIRAcetam [Keppra] 500 mg PO Q12HR #60 tab 01/05/23 01/14/23 Rx Allergies Allergy/AdvReac Type Severity Reaction Status Date / Time Penicillins Allergy Swelling Verified 01/14/23 07:41 tongue Sulfa (Sulfonamide Allergy Swelling Verified 01/14/23 07:41 Antibiotics) tongue walnut Allergy Anaphylaxis Verified 01/14/23 07:41 Physical Exam Vitals: Vital Signs Temp Pulse Pulse Resp BP BP Pulse Ox 01/14/23 08:09 97.8 F 101 H 16 109/67 98 01/14/23 03:00 115/67 96 01/14/23 02:31 97 01/14/23 02:26 98.0 F 98 18 116/67 97 01/14/23 01:12 98.5 F 100 18 121/71 97 Intake and Output 01/13/23 01/14/2323 22:59 06:59 14:59 Other: Weight 66.678 kg 66.678 kg General appearance: The patient is alert, oriented, appears in no acute distress. HET: Head is normocephalic and atraumatic. Conjunctiva pink. Sclera deeply icteric Neck: Supple without lymphadenopathy. Trachea midline. Heart: Regular. Lungs: Equal expansion, normal respiratory effort. Abdomen: Soft, mid right tenderness, small amount of ascites. No guarding or rigidity. Skin: No rashes. Deeply jaundiced. Extremities: Normal skin color and turgor. No pedal edema. Neurological: No focal deficits. Alert and oriented x3. Results CBC & Chem 7: 01/14/23 02:18 01/14/23 02:18 Labs: Abnormal Lab Results - Last 24 Hours (Table) 01/14/23 01/14/23 01/14/23 Range/Units 02:18 02:18 02:18 RBC 1.97 L (3.80-5.40) m/uL Hgb 8.1 L (11.4-16.0) gm/dL Hct 22.9 L (34.0-46.0) % MCV 116.2 H (80.0-100.0) fL MCH 41.2 H (25.0-35.0) pg RDW 18.0 H (11.5-15.5) % Plt Count 30 L (150-450) k/uL Lymphocytes # 0.9 L (1.0-4.8) k/uL Macrocytosis Marked A PT (10.0-12.5) sec INR (<1.2) Sodium 136 L (137-145) mmol/L Carbon Dioxide 21 L (22-30) mmol/L Glucose 106 H (74-99) mg/dL Plasma Lactic Acid Heladio 2.7 H* (0.7-2.0) mmol/L Total Bilirubin 18.6 H* (0.2-1.3) mg/dL Conjugated Bilirubin 5.6 H (0.0-0.3) mg/dL Unconjugated Bilirubin 9.0 H (0.0-1.1) mg/dL Delta Bilirubin 4.0 H (0.0-0.2) mg/dL AST 95 H (14-36) U/L ALT 40 H (4-34) U/L Alkaline Phosphatase 137 H (38-126) U/L Albumin 3.1 L (3.5-5.0) g/dL Urine Appearance (Clear) Urine Bilirubin (Negative) Ur Squamous Epith Cells (0-4) /hpf Amorphous Sediment (None) /hpf Urine Bacteria (None) /hpf Hyaline Casts (0-2) /lpf Urine Mucus (None) /hpf 01/14/23 01/14/23 Range/Units 02:18 03:32 RBC (3.80-5.40) m/uL Hgb (11.4-16.0) gm/dL Hct (34.0-46.0) % MCV (80.0-100.0) fL MCH (25.0-35.0) pg RDW (11.5-15.5) % Plt Count (150-450) k/uL Lymphocytes # (1.0-4.8) k/uL Macrocytosis PT 20.5 H (10.0-12.5) sec INR 2.0 H (<1.2) Sodium (137-145) mmol/L Carbon Dioxide (22-30) mmol/L Glucose (74-99) mg/dL Plasma Lactic Acid Heladio (0.7-2.0) mmol/L Total Bilirubin (0.2-1.3) mg/dL Conjugated Bilirubin (0.0-0.3) mg/dL Unconjugated Bilirubin (0.0-1.1) mg/dL Delta Bilirubin (0.0-0.2) mg/dL AST (14-36) U/L ALT (4-34) U/L Alkaline Phosphatase (38-126) U/L Albumin (3.5-5.0) g/dL Urine Appearance Cloudy H (Clear) Urine Bilirubin 2+ H (Negative) Ur Squamous Epith Cells 18 H (0-4) /hpf Amorphous Sediment Occasional H (None) /hpf Urine Bacteria Occasional H (None) /hpf Hyaline Casts 10 H (0-2) /lpf Urine Mucus Occasional H (None) /hpf Comments: Brain CT reports no acute hemorrhage., Hydrocephalus or mass effect. Similar right frontal convexity subdural hygroma versus volume loss Assessment and Plan (1) Jaundice Current Visit: Yes Status: Acute Code(s): R17 - UNSPECIFIED JAUNDICE SNOMED Code(s): 86731734 (2) Decompensation of cirrhosis of liver Narrative/Plan: This is a 52-year-old female with significant history of alcohol abuse who is no longer drinking diagnosed with alcoholic liver disease, cirrhosis of the liver with history of esophageal varices, portal hypertensive gastropathy, ascites, and hepatic encephalopathy. Patient has been following with Dr. Alcantar in the past. She's had recent admissions both in November and December for underlying liver disease. Underwent paracentesis in December with 4 L removed. She remains on lactulose. Her underlying liver disease seems to be progressing, patient is severely jaundice with ascites. Recommend starting Lasix 40 mg daily for 2 days then dropping down to 20 mg daily, Aldactone 100 mg daily. Recommend daily labs, monitor platelet count. Patient will need close follow-up and [facility]. Current Visit: Yes Status: Acute Code(s): K72.90 - HEPATIC FAILURE, UNSPECIF IED WITHOUT COMA; K74.60 - UNSPECIFIED CIRRHOSIS OF LIVER SNOMED Code(s): 534585841 (3) Ascites Current Visit: No Status: Acute Code(s): R18.8 - OTHER ASCITES SNOMED Code(s): 016879855 (4) ETOH abuse Current Visit: No Status: Acute Code(s): F10.10 - ALCOHOL ABUSE, UNCOMPLICATED SNOMED Code(s): 17876787 (5) Pancytopenia Current Visit: No Status: Acute Code(s): D61.818 - OTHER PANCYTOPENIA SNOMED Code(s): 558295228 Plan: 1. Continue symptomatic and supportive care 2. Daily CBCs, transfuse for hemoglobin less than 7 3. Repeat CMP daily 4. Low sodium diet 5. Start Lasix 40 mg daily, Aldactone 100 mg daily Thank you for this consultation, we will continue to follow. Dr. Liv Alcantar I agree with the dictator's note, documented as a scribe by Valery YO .
--- NOTE | 2023-01-14 18:02 | P.HPIM ---
History of Present Illness H&P Date: 01/14/23 Chief Complaint: Dizzy This is a pleasant 52-year-old patient, known history of alcohol-induced cirrhosis. Does follow Dr. Liv Alcantar. Also history of bipolar disorder. Smokes less than a pack a day. Patient presents with increasing dizziness.foggy feeling of the brain. No BS to 3 bowel movements a day. On lactulose. Decreased appetite. A bit tired and rundown. Patient stopped drinking alcohol in July of this year. Review of systems: GEN.: Tired, decreased appetite EYES: None HEENT: None NECK: None RESPIRATORY: None CARDIOVASCULAR: None GASTROINTESTINAL: 3-4 loose BMs a day. GENITOURINARY: None MUSCULOSKELETAL: None LYMPHATICS: None HEMATOLOGICAL: None PSYCHIATRY: As above NEUROLOGICAL: None Social history: Long-standing alcohol drinker. Last drink in July 2022. Smokes less than a pack a day. . Physical examination: VITAL SIGNS: 97.8, 101, 16, 109/67, 98% room air GENERAL: BMI 24.5, reclining [place] tired. EYES: [Pupils equal. Conjunctiva icterus l. HEENT: External appearance of nose and ears normal, oral cavity grossly normal. NECK: JVD not raised; masses not palpable. HEART: First and second heart sounds are normal; no edema. LUNGS: Respiratory rate normal; clear to auscultation. ABDOMEN: Soft, slight distention, liver spleen not palpable, no masses palpable. PSYCH: Tired able to answer simple questions.l. MUSCULOSKELETAL: Decreased muscle mass. NEUROLOGICAL: Cranial nerves grossly intact; no facial asymmetry, power and sensation grossly intact. LYMPHATICS: No lymph nodes palpable in the axilla and neck INVESTIGATIONS, reviewed in the clinical context: White count 6.3 hemoglobin 8.1 platelets 30 pro time 20.5 sodium 136 potassium 3.8 creatinine 0.69 Lactic acid 2.7 total bilirubin 18.6 AST 95 ALT 40 albumin 3.1 Serum alcohol less than 10 EKG tracing personally reviewed by me-normal sinus rhythm. Nonspecific ST-T wave changes. Computed tomography scan of the brain: Right frontal convexity subdural hygroma versus volume loss. Assessment plan: -Acute hepatic encephalopathy in a patient with advanced cirrhosis. Continue to take lactulose. Looked for other precipitating cause. GI consulted. -Severe jaundice from cirrhosis -Abnormal coagulation/pro time secondary to his advanced cirrhosis Vitamin K -Mild protein calorie malnutrition from underlying cirrhosis and decreased oral intake Encourage oral intake -Depression Prozac -Gastritis Protonix -Epilepsy disorder Keppra Aldactone. Continue lactulose. Lasix. Follow with GI. Discussed with the patient. Past Medical History Past Medical History: Asthma, Liver Disease Additional Past Medical History / Comment(s): ascites,paracentesis 01-08-18, low platelets, previous ETOH abuse History of Any Multi-Drug Resistant Organisms: None Reported Past Surgical History: No Surgical Hx Reported Additional Past Surgical History / Comment(s): repair to spleen [place] Ruptured spleen in 1988 Past Anesthesia/Blood Transfusion Reactions: No Reported Reaction Additional Past Anesthesia/Blood Transfusion Reaction / Comment(s): Unsure if had blood transfusion in past Smoking Status: Current every day smoker - Past Family History Sister(s) Additional Family Medical History / Comment(s): closed head injury Mother Family Medical History: Diabetes Mellitus, Hyperlipidemia Medications and Allergies Home Medications Medication Instructions Recorded Confirmed Type FLUoxetine HCL [PROzac] 40 mg PO DAILY 10/01/22 01/14/23 History Potassium Chloride ER [K-Dur 10] 10 meq PO DAILY 10/01/22 01/14/23 History Thiamine [Vitamin B-1] 100 mg PO DAILY 10/01/22 01/14/23 History Lactulose [Cephulac] 30 gm PO TID #120 ml 10/04/22 01/14/23 Rx Ubidecarenone [Coenzyme Q10] 100 mg PO DAILY 12/02/22 01/14/23 History Phytonadione Oral [Vitamin K Oral] 5 mg PO DAILY #15 ml 12/04/22 01/14/23 Rx Midodrine [ProAmatine] 5 mg PO AC-TID #90 tab 01/05/23 01/14/23 Rx Pantoprazole Sodium [Protonix] 40 mg PO DAILY PRN #60 tab 01/05/23 01/14/23 Rx levETIRAcetam [Keppra] 500 mg PO Q12HR #60 tab 01/05/23 01/14/23 Rx Allergies Allergy/AdvReac Type Severity Reaction Status Date / Time Penicillins Allergy Swelling Verified 01/14/23 07:41 tongue Sulfa (Sulfonamide Allergy Swelling Verified 01/14/23 07:41 Antibiotics) tongue walnut Allergy Anaphylaxis Verified 01/14/23 07:41 Physical Exam Vitals: Vital Signs Temp Pulse Pulse Resp BP BP Pulse Ox 01/14/23 08:09 97.8 F 101 H 16 109/67 98 01/14/23 03:00 115/67 96 01/14/23 02:31 97 01/14/23 02:26 98.0 F 98 18 116/67 97 01/14/23 01:12 98.5 F 100 18 121/71 97 Intake and Output 01/13/23 01/14/23 01/14/23 22:59 06:59 14:59 Other: Weight 66.678 kg 66.678 kg Results CBC & Chem 7: 01/14/23 02:18 01/14/23 02:18 Labs: Abnormal Lab Results - Last 24 Hours (Table) 01/14/23 01/14/23 01/14/23 Range/Units 02:18 02:18 02:18 RBC 1.97 L (3.80-5.40) m/uL Hgb 8.1 L (11.4-16.0) gm/dL Hct 22.9 L (34.0-46.0) % MCV 116.2 H (80.0-100.0) fL MCH 41.2 H (25.0-35.0) pg RDW 18.0 H (11.5-15.5) % Plt Count 30 L (150-450) k/uL Lymphocytes # 0.9 L (1.0-4.8) k/uL Macrocytosis Marked A PT (10.0-12.5) sec INR (<1.2) Sodium 136 L (137-145) mmol/L Carbon Dioxide 21 L (22-30) mmol/L Glucose 106 H (74-99) mg/dL Plasma Lactic Acid Heladio 2.7 H* (0.7-2.0) mmol/L Total Bilirubin 18.6 H* (0.2-1.3) mg/dL Conjugated Bilirubin 5.6 H (0.0-0.3) mg/dL Unconjugated Bilirubin 9.0 H (0.0-1.1) mg/dL Delta Bilirubin 4.0 H (0.0-0.2) mg/dL AST 95 H (14-36) U/L ALT 40 H (4-34) U/L Alkaline Phosphatase 137 H (38-126) U/L Albumin 3.1 L (3.5-5.0) g/dL Urine Appearance (Clear) Urine Bilirubin (Negative) Ur Squamous Epith Cells (0-4) /hpf Amorphous Sediment (None) /hpf Urine Bacteria (None) /hpf Hyaline Casts (0-2) /lpf Urine Mucus (None) /hpf 01/14/23 01/14/23 Range/Units 02:18 03:32 RBC (3.80-5.40) m/uL Hgb (11.4-16.0) gm/dL Hct (34.0-46.0) % MCV (80.0-100.0) fL MCH (25.0-35.0) pg RDW (11.5-15.5) % Plt Count (150-450) k/uL Lymphocytes # (1.0-4.8) k/uL Macrocytosis PT 20.5 H (10.0-12.5) sec INR 2.0 H (<1.2) Sodium (137-145) mmol/L Carbon Dioxide (22-30) mmol/L Glucose (74-99) mg/dL Plasma Lactic Acid Heladio (0.7-2.0) mmol/L Total Bilirubin (0.2-1.3) mg/dL Conjugated Bilirubin (0.0-0.3) mg/dL Unconjugated Bilirubin (0.0-1.1) mg/dL Delta Bilirubin (0.0-0.2) mg/dL AST (14-36) U/L ALT (4-34) U/L Alkaline Phosphatase (38-126) U/L Albumin (3.5-5.0) g/dL Urine Appearance Cloudy H (Clear) Urine Bilirubin 2+ H (Negative) Ur Squamous Epith Cells 18 H (0-4) /hpf Amorphous Sediment Occasional H (None) /hpf Urine Bacteria Occasional H (None) /hpf Hyaline Casts 10 H (0-2) /lpf Urine Mucus Occasional H (None) /hpf Thrombosis Risk Factor Assmnt - Choose All That Apply Any of the Below Risk Factors Present?: Yes Each Factor Represents 1 point: Age 41-60 years, Swollen legs (current) Other Risk Factors: Yes Each Risk Factor Represents 3 Points: Family history of DVT/PE Thrombosis Risk Factor Assessment Total Risk Factor Score: 5 Thrombosis Risk Factor Assessment Level: High Risk
[2023-01-14 21:40] VITALS: TEMP 98.1
[2023-01-15] MEDS: MIDODRINE 5 MG TAB PO SCH ×3 (06:39→16:44)
[2023-01-15 08:26] LABS: African American GFR (CKD) >90 (>60 ml/min/1.73 sqM); Anion Gap 9 mmol/L; Blood Urea Nitrogen 8 mg/dL (7-17); Calcium 8.2 mg/dL (8.4-10.2); Carbon Dioxide 21 mmol/L (22-30); Chloride 105 mmol/L (98-107); Glucose 92 mg/dL (74-99); Non-African American GFR(CKD) >90 (>60 ml/min/1.73 sqM); Potassium 2.8 mmol/L (3.5-5.1); Sodium 135 mmol/L (137-145)
[2023-01-15 08:50] LABS: Anisocytosis Slight; HCT 22.4 % (34.0-46.0); HGB 7.8 gm/dL (11.4-16.0); Hypochromasia Slight; MCH 41.2 pg (25.0-35.0); MCV 117.7 fL (80.0-100.0); Macrocytosis Marked; Mean Platelet Volume 8.6; Poikilocytosis Slight; RBC 1.91 m/uL (3.80-5.40); RDW 17.3 % (11.5-15.5); WBC 6.7 k/uL (3.8-10.6)
[2023-01-15 08:51] LABS: Platelet Count 32 k/uL (150-450)
[2023-01-15] MEDS ORDERED: Potassium Replacement Protocol 1 EACH MISC MISCELLANE PRN (09:10)
[2023-01-15] MEDS: POTASSIUM CHLORIDE ER 10 MEQ TAB.ER.PRT PO SCH (09:27)
[2023-01-15] MEDS: THIAMINE 100 MG TAB PO SCH (09:27)
[2023-01-15] MEDS: levETIRAcetam 500 MG TAB PO SCH (09:27)
[2023-01-15] MEDS: FUROSEMIDE 40 MG TAB PO SCH (09:27)
[2023-01-15] MEDS: POTASSIUM CHLORIDE ER 20 MEQ TAB.ER PO SCH ×5 (09:27→16:43)
[2023-01-15] MEDS: SPIRONOLACTONE 25 MG TAB PO SCH (09:27)
[2023-01-15] MEDS: LACTULOSE 20 GM/30 ML CUP PO SCH ×2 (09:27→15:58)
[2023-01-15 09:43] LABS: Total Bilirubin 19.6 mg/dL (0.2-1.3)
[2023-01-15 09:56] LABS: INR 2.2 (<1.2); Prothrombin Time 22.1 sec (10.0-12.5)
--- NOTE | 2023-01-15 11:53 | P.PN ---
Subjective Progress Note Date: 01/15/23 Principal diagnosis: Jaundice, liver disease This is a pleasant 52-year-old female with a known history of alcoholic cirrhosis of the liver who has followed with Dr. Alcantar. Patient came into the emergency department with concerns of abdominal pain and short-term memory loss. Last hospital admission was in November of this shear for concerns of upper GI bleed. At that time she underwent EGD with no active upper GI bleed, small mid and distal esophageal varices with no stigmata of recent bleed. Moderate to severe portal hypertensive gastropathy. The patient again had presented to the emergency department 2 weeks ago with concerns for hepatic encephalopathy and ascites. She underwent a paracentesis on 01/05/2023 with 4 L of fluid removed. She was not sent home on any diuretics, however her states that she has been taking her lactulose and other medications as prescribed. She is significantly jaundiced, she is alert and oriented. She denies any shortness of breath or chest pain no nausea or vomiting. Most of her discomfort is the right flank and right upper abdomen. 01/15/2023 Patient seen and examined this morning as a follow-up. She is sitting up in bed resting comfortably. Denies any abdominal pain, nausea, or vomiting. She is alert and oriented. Tolerating her diet. Today's labs WBC 6.7 hemoglobin 7.8 platelet count 32,000 INR 2.2 sodium 135 potassium 2.8B1 a creatinine 0.7 total bilirubin 19.6 AST 67 AST 37 alkaline phosphatase 109 Objective - Vital Signs Vital signs: Vital Signs Temp 98.1 F 01/14/23 20:00 Pulse 81 01/14/23 20:00 Resp 17 01/14/23 20:00 BP 102/63 01/14/23 20:00 Pulse Ox 93 L 01/14/23 12:52 FiO2 Intake & Output 01/14/23 01/15/23 01/15/23 18:59 06:59 18:59 Weight 66.678 kg Other: Voiding Method Toilet # Voids 4 2 - Exam General appearance: The patient is alert, oriented, appears in no acute distress. HET: Head is normocephalic and atraumatic. Conjunctiva pink. Sclera deeply icteric. Neck: Supple without lymphadenopathy. Abdomen: Soft, nontender, small amount ascites. No guarding or rigidity. Extremities: Jaundice. Bilateral pitting edema. Skin: No rashes, deeply jaundiced Neurological: No focal deficits. Alert and oriented. - Labs CBC & Chem 7: 01/15/23 07:44 01/15/23 07:22 Labs: Abnormal Lab Results - Last 24 Hours (Table) 01/15/23 01/15/23 Range/Units 07:22 07:44 RBC 1.91 L (3.80-5.40) m/uL Hgb 7.8 L (11.4-16.0) gm/dL Hct 22.4 L (34.0-46.0) % MCV 117.7 H (80.0-100.0) fL MCH 41.2 H (25.0-35.0) pg RDW 17.3 H (11.5-15.5) % Plt Count 32 L (150-450) k/uL Macrocytosis Marked A Sodium 135 L (137-145) mmol/L Potassium 2.8 L (3.5-5.1) mmol/L Carbon Dioxide 21 L (22-30) mmol/L Calcium 8.2 L (8.4-10.2) mg/dL Assessment and Plan (1) Decompensation of cirrhosis of liver Narrative/Plan: This is a 52-year-old female with significant history of alcohol abuse who is no longer drinking diagnosed with alcoholic liver disease, cirrhosis of the liver with history of esophageal varices, portal hypertensive gastropathy, ascites, and hepatic encephalopathy. Patient has been following with Dr. Alcantar in the past. She's had recent admissions both in November and December for underlying liver disease. Underwent paracentesis in December with 4 L removed. She remains on lactulose. Her underlying liver disease seems to be progressing, patient is severely jaundice with ascites. Recommend starting Lasix 40 mg daily for 2 days then dropping down to 20 mg daily, Aldactone 100 mg daily. Recommend daily labs, monitor platelet count. Patient will need close follow-up and likely will need consultation with [facility] liver specialist in the near future. Current Visit: Yes Status: Acute Code(s): K72.90 - HEPATIC FAILURE, UNSPECIFIED WITHOUT COMA; K74.60 - UNSPECIFIED CIRRHOSIS OF LIVER SNOMED Code(s): 268069391 (2) Jaundice Current Visit: Yes Status: Acute Code(s): R17 - UNSPECIFIED JAUNDICE SNOMED Code(s): 90139076 (3) Ascites Current Visit: No Status: Acute Code(s): R18.8 - OTHER ASCITES SNOMED Code(s): 832213867 (4) ETOH abuse Current Visit: No Status: Acute Code(s): F10.10 - ALCOHOL ABUSE, UNCOMPLICATED SNOMED Code(s): 57316749 (5) Pancytopenia Current Visit: No Status: Acute Code(s): D61.818 - OTHER PANCYTOPENIA SNOMED Code(s): 420479662 (6) Hypokalemia Current Visit: Yes Status: Acute Code(s): E87.6 - HYPOKALEMIA SNOMED Code(s): 48888624 (7) Coagulopathy Current Visit: No Status: Acute Code(s): D68.9 - COAGULATION DEFECT, UNSPECIFIED SNOMED Code(s): 46936484 Plan: 1. Continue symptomatic and supportive care 2. Replace potassium per protocol 3. Will decrease Lasix to 20 mg daily, continue Aldactone at 100 mg daily 4. Low-sodium diet 5. Continue alcohol abstinence 6. Patient is continue close outpatient follow-up, likely will require consultation with [facility] community services officer. This can be done as an outpatient. Outpatient repeat labs for Thursday, patient to follow-up with GI next week. 7. Repeat potassium this afternoon, patient is cleared from gastroenterology pending potassium and medical clearance Thank you for this consultation, we will continue to follow Dr. Liv Alcantar I agree with the dictator's note, documented as a scribe by Valery Flaherty.
[2023-01-15] MEDS: PHYTONADIONE ORAL 5 MG/5 ML ORAL.SYRG PO SCH (12:07)
[2023-01-15 16:07] VITALS: BP 108/68; PULSE 108; RESP 16
--- NOTE | 2023-01-15 21:25 | P.DS ---
Providers Date of admission: 01/14/23 04:07 Expected date of discharge: 01/15/23 Attending physician: Prince Nava Consults: 01/14/23 02:05 Consult Physician Routine Consulting Provider: Juliana Alcantar Consult Reason/Comments: jaundice Do you want consulting provider notified?: Yes Primary care physician: Zack Gutierrez [facility] Course: Chief Complaint: Dizzy This is a pleasant 52-year-old patient, known history of alcohol-induced cirrhosis. Does follow Dr. Liv Alcantar. Also history of bipolar disorder. Smokes less than a pack a day. Patient presents with increasing dizziness.foggy feeling of the brain. No BS to 3 bowel movements a day. On lactulose. Decreased appetite. A bit tired and rundown. Patient stopped drinking alcohol in July of this year. January 15: Patient admitted with a diagnosis and lactulose. Doing much better today. Keen to go home. Seen by Dr. Liv Alcantar from GI. We'll give for discharge. Patient follow-up with Dr. Liv Alcantar. Fluid restriction. Questions answered. Social history: Long-standing alcohol drinker. Last drink in July 2022. Smokes less than a pack a day. . Physical examination: VITAL SIGNS: 98.1, 107, 14, 103/64, 93% room air GENERAL: BMI 24.5, sitting up in bed, comfortable EYES: [Pupils equal. Conjunctiva icterus HEENT: External appearance of nose and ears normal, oral cavity grossly normal. NECK: JVD not raised; masses not palpable. HEART: First and second heart sounds are normal; no edema. LUNGS: Respiratory rate normal; clear to auscultation. ABDOMEN: Soft, slight distention, liver spleen not palpable, no masses palpable. No lumbrical hernia PSYCH: 3 questions appropriately. MUSCULOSKELETAL: Decreased muscle mass. INVESTIGATIONS, reviewed in the clinical context: January 15: White count [age]-year-old woman 7.8 platelets 32 total bilirubin 19.6 White count 6.3 hemoglobin 8.1 platelets 30 pro time 20.5 sodium 136 potassium 3.8 creatinine 0.69 Lactic acid 2.7 total bilirubin 18.6 AST 95 ALT 40 albumin 3.1 Serum alcohol less than 10 EKG tracing personally reviewed by me-normal sinus rhythm. Nonspecific ST-T wave changes. Computed tomography scan of the brain: Right frontal convexity subdural hygroma versus volume loss. Assessment plan: -Acute hepatic encephalopathy in a patient with advanced cirrhosis.: Better Continue to take lactulose. Seen by Dr. Liv Alcantar from GI. -Severe jaundice from cirrhosis -Abnormal coagulation/pro time secondary to advanced cirrhosis Vitamin K -Mild protein calorie malnutrition from underlying cirrhosis and decreased oral intake Encourage oral intake -Depression Prozac -Gastritis Protonix -Epilepsy disorder Keppra Disposition: Home Labs: CMP: Weak Plan - Discharge Summary New Discharge Prescriptions: New Spironolactone [Aldactone] 100 mg PO DAILY #30 tab Furosemide [Lasix] 20 mg PO DAILY #30 tab Continue FLUoxetine HCL [PROzac] 40 mg PO DAILY Pantoprazole Sodium [Protonix] 40 mg PO DAILY PRN #60 tab PRN Reason: Heartburn Potassium Chloride ER [K-Dur 10] 10 meq PO DAILY Thiamine [Vitamin B-1] 100 mg PO DAILY Lactulose [Cephulac] 30 gm PO TID #120 ml Ubidecarenone [Coenzyme Q10] 100 mg PO DAILY Phytonadione Oral [Vitamin K Oral] 5 mg PO DAILY #15 ml levETIRAcetam [Keppra] 500 mg PO Q12HR #60 tab Midodrine [ProAmatine] 5 mg PO AC-TID #90 tab Discharge Medication List FLUoxetine HCL [PROzac] 40 mg PO DAILY 10/01/22 [History] Potassium Chloride ER [K-Dur 10] 10 meq PO DAILY 10/01/22 [History] Thiamine [Vitamin B-1] 100 mg PO DAILY 10/01/22 [History] Lactulose [Cephulac] 30 gm PO TID #120 ml 10/04/22 [Rx] Ubidecarenone [Coenzyme Q10] 100 mg PO DAILY 12/02/22 [History] Phytonadione Oral [Vitamin K Oral] 5 mg PO DAILY #15 ml 12/04/22 [Rx] Midodrine [ProAmatine] 5 mg PO AC-TID #90 tab 01/05/23 [Rx] Pantoprazole Sodium [Protonix] 40 mg PO DAILY PRN #60 tab 01/05/23 [Rx] levETIRAcetam [Keppra] 500 mg PO Q12HR #60 tab 01/05/23 [Rx] Furosemide [Lasix] 20 mg PO DAILY #30 tab 01/15/23 [Rx] Spironolactone [Aldactone] 100 mg PO DAILY #30 tab 01/15/23 [Rx] Follow up Appointment(s)/Referral(s): Juliana Alcantar MD [STAFF PHYSICIAN] - 1 Week [facility], [NON-STAFF] - Zack Gutierrez MD [Primary Care Provider] - 1-2 days Ambulatory/Diagnostic Orders: Complete Blood Count w/diff [LAB.AMB] Time Frame: 01/19/23, Location: None Selected Comprehensive Metabolic Panel [LAB.AMB] Time Frame: 01/19/23, Location: None Selected Prothrombin Time INR [LAB.AMB] Time Frame: 01/19/23, Location: None Selected Patient Instructions/Handouts: Spironolactone (By mouth), Furosemide (By mouth), Cirrhosis (DC), Hypokalemia (DC), Complete Blood Count (GEN), Jaundice (DC), Comprehensive Metabolic Panel (GEN) Discharge Disposition: HOME SELF-CARE
[2023-01-16] MEDS ORDERED: FUROSEMIDE 20 MG TAB PO SCH (09:00)
== END 2023-01-15 17:34 | disposition home or self-care (01) | DRG 280 ==
LOC: EC 01:04 → 1SOBS 04:07
PROVIDERS: ADMIT Hospitalist; ATTEND Hospitalist
DX: K70.31 Alcoholic cirrhosis of liver with ascites (principal); D61.818 Other pancytopenia; K31.89 Other diseases of stomach and duodenum; E44.1 Mild protein-calorie malnutrition; K29.70 Gastritis, unspecified, without bleeding; K70.40 Alcoholic hepatic failure without coma; K76.6 Portal hypertension; J45.909 Unspecified asthma, uncomplicated; Z68.24 Body mass index [BMI] 24.0-24.9, adult; K76.82 Hepatic encephalopathy; Z79.899 Other long term (current) drug therapy; Z88.0 Allergy status to penicillin; Z88.2 Allergy status to sulfonamides; Z91.018 Allergy to other foods; Z87.19 Personal history of other diseases of the digestive system
CPT/HCPCS: 36415; 70450; 80048; 80053; 80320; 81001; 82140; 82247; 82248; 83605; 83690; 83735; 84075; 84132; 84450; 84460; 85025; 85027; 85610; 85730; 93005; 99285

== ENCOUNTER → 2023-01-19 | Outpatient (CLI) | payer OTHER ==
[2023-01-19 11:22] LABS: INR 2.2 (<1.2); Prothrombin Time 22.2 sec (10.0-12.5)
[2023-01-19 17:04] LABS: ALT 45 U/L (8-44); AST 81 U/L (13-35); Albumin 3.3 d/dL (3.8-4.9); Alkaline Phosphatase 141 U/L (41-126); BUN/Creat Ratio 8.11 Ratio (12.00-20.00); Blood Urea Nitrogen 7.3 mg/dL (9.0-27.0); Calcium 8.5 mg/dL (8.7-10.3); Carbon Dioxide 21.5 mmol/L (21.6-31.8); Chloride 96 mmol/L (96-109); Globulin 3.3 d/dL (1.6-3.3); Glucose 97 mg/dL (70-110); Potassium 3.4 mmol/L (3.5-5.5); Sodium 132 mmol/L (135-145); Total Bilirubin 18.6 mg/dL (0.3-1.2); Total Protein 6.6 d/dL (6.2-8.2)
[2023-01-19 17:34] LABS: Basophils # (A) 0.05 X 10*3/uL (0.00-0.10); Basophils % (A) 0.6 %; Eosinophils # (A) 0.16 X 10*3/uL (0.04-0.35); HCT 23.1 % (37.2-46.3); HGB 7.7 d/dL (12.0-15.0); Immature Platelet Fraction 9.3 % (1.1-6.1); Lymphocytes # (A) 0.77 X 10*3/uL (0.90-5.00); Lymphocytes % (A) 9.8 %; MCH 40.7 pg (27.0-32.0); MCHC 33.3 d/dL (32.0-37.0); MCV 122.2 FL (80.0-97.0); Mean Platelet Volume 11.9 FL (9.5-12.2); Monocytes # (A) 0.63 X 10*3/uL (0.20-1.00); NRBC Per 100 WBC 0.02 X 10*3/uL (0.00-0.01); Neutrophils # (A) 6.02 X 10*3/uL (1.80-7.70); Neutrophils % (A) 76.9 %; Platelet Count 24 X 10*3/uL (140-440); RBC 1.89 X 10*6/uL (4.10-5.20); RDW 20.5 % (11.5-14.5); WBC 7.84 X 10*3/uL (4.50-10.00)
== END | disposition home or self-care (01) ==
LOC: LABWHC1 09:44
PROVIDERS: ATTEND Nurse Practitioner Family
DX: K72.90 Hepatic failure, unspecified without coma (principal); D64.9 Anemia, unspecified
CPT/HCPCS: 36415; 80053; 85025; 85610

== ENCOUNTER 2023-01-23 17:58 | Emergency (ER) | payer OTHER ==
[2023-01-23 18:17] VITALS: TEMP 97.6
--- NOTE | 2023-01-23 18:28 | ED ---
General Adult HPI - General Source: patient, RN notes reviewed Mode of arrival: ambulatory Limitations: no limitations <Randee Le - Last Filed: 01/23/23 18:25> - General Source: RN notes reviewed, old records reviewed, Caregiver Mode of arrival: ambulatory Limitations: no limitations, altered mental status (Patient does have mildly altered mental status but is lucid) - History of Present Illness -: days(s) (3) Radiation: non-radiation Severity scale (1-10): 4 Consistency: intermittent Improves with: none Worsens with: none Associated Symptoms: denies other symptoms Treatments Prior to Arrival: none <Rubio Dueñas - Last Filed: 01/24/23 16:32> - General Stated complaint: dizzy Time Seen by Provider: 01/23/23 18:15 - History of Present Illness Initial comments: 52-year-old female presents emergency Department with chief complaint of lightheadedness 2 days. She states that she has had some associated vomiting this morning. She also admits to right sided abdominal pain. Patient appears jau ndiced. Patient states she has a history of liver disease. She reports that she is a former drinker. (Randee Le) This is a 52-year-old female to the emergency department for evaluation of dizziness and lightheadedness for the last 2 days concern for laboratory abnormalities with severe medical comorbidities, concern for electrolytes ammonia level as well as possible low hemoglobin. Patient presents with mother for evaluation (Rubio Dueñas) - Related Data Home Medications Medication Instructions Recorded Confirmed FLUoxetine HCL [PROzac] 40 mg PO DAILY 10/01/22 01/23/23 Potassium Chloride ER [K-Dur 10] 10 meq PO DAILY 10/01/22 01/23/23 Thiamine [Vitamin B-1] 100 mg PO DAILY 10/01/22 01/23/23 Ubidecarenone [Coenzyme Q10] 100 mg PO DAILY 12/02/22 01/23/23 Previous Rx's Medication Instructions Recorded Lactulose [Cephulac] 30 gm PO TID #120 ml 10/04/22 Phytonadione Oral [Vitamin K Oral] 5 mg PO DAILY #15 ml 12/04/22 Midodrine [ProAmatine] 5 mg PO AC-TID #90 tab 01/05/23 Pantoprazole Sodium [Protonix] 40 mg PO DAILY PRN #60 tab 01/05/23 levETIRAcetam [Keppra] 500 mg PO Q12HR #60 tab 01/05/23 Furosemide [Lasix] 20 mg PO DAILY #30 tab 01/15/23 Spironolactone [Aldactone] 100 mg PO DAILY #30 tab 01/15/23 Allergies Allergy/AdvReac Type Severity Reaction Status Date / Time Penicillins Allergy Swelling Verified 01/14/23 07:41 tongue Sulfa (Sulfonamide Allergy Swelling Verified 01/14/23 07:41 Antibiotics) tongue walnut Allergy Anaphylaxis Verified 01/14/23 07:41 Review of Systems ROS Other: All systems not noted in ROS Statement are negative. <Randee Le - Last Filed: 01/23/23 18:25> ROS Other: All systems not noted in ROS Statement are negative. <Rubio Dueñas - Last Filed: 01/24/23 16:32> ROS Statement: Those systems with pertinent positive or pertinent negative responses have been documented in the HPI. Past Medical History Past Medical History: Asthma, Liver Disease Additional Past Medical History / Comment(s): ascites,paracentesis 01-08-18, low platelets, previous ETOH abuse History of Any Multi-Drug Resistant Organisms: None Reported Past Surgical History: No Surgical Hx Reported Additional Past Surgical History / Comment(s): repair to spleen [place] Ruptured spleen in 1988 Past Anesthesia/Blood Transfusion Reactions: No Reported Reaction Additional Past Anesthesia/Blood Transfusion Reaction / Comment(s): Unsure if had blood transfusion in past Past Psychological History: Anxiety, Bipolar, Depression Smoking Status: Current every day smoker Past Alcohol Use History: None Reported Past Drug Use History: None Reported - Past Family History Sister(s) Additional Family Medical History / Comment(s): closed head injury Mother Family Medical History: Diabetes Mellitus, Hyperlipidemia <Randee Le - Last Filed: 01/23/23 18:25> General Exam Limitations: no limitations <Randee Le - Last Filed: 01/23/23 18:25> General appearance: alert, in no apparent distress Head exam: Present: atraumatic, normocephalic, normal inspection Eye exam: Present: normal appearance, PERRL, EOMI. Absent: scleral icterus, conjunctival injection, periorbital swelling ENT exam: Present: normal exam, mucous membranes moist Neck exam: Present: normal inspection. Absent: tenderness, meningismus, lymphadenopathy Respiratory exam: Present: normal lung sounds bilaterally. Absent: respiratory distress, wheezes, rales, rhonchi, stridor Cardiovascular Exam: Present: regular rate, normal rhythm, normal heart sounds. Absent: systolic murmur, diastolic murmur, rubs, gallop, clicks GI/Abdominal exam: Present: soft, normal bowel sounds. Absent: distended, tenderness, guarding, rebound, rigid Extremities exam: Present: normal inspection, full ROM, normal capillary refill. Absent: tenderness, pedal edema, joint swelling, calf tenderness Back exam: Present: normal inspection Neurological exam: Present: alert, oriented X3, CN II-XII intact Psychiatric exam: Present: normal affect, normal mood Skin exam: Present: warm, dry, intact, normal color. Absent: rash <Rubio Dueñas - Last Filed: 01/24/23 16:32> - General Exam Comments Initial Comments: Visual Physical Exam Vital signs reviewed General: Well-appearing, nontoxic, no acute distress. Head: Normocephalic, atraumatic Eyes: PERRLA, EOMI, icteric ENT: Airway patent Chest: Nonlabored breathing Skin: No visual rash, jaundiced Neuro: Alert and oriented 3 Musculoskeletal: No gross abnormalities (StephenlkaRandee) Course <Rubio Dueñas - Last Filed: 01/24/23 16:32> Vital Signs 01/23/23 01/23/23 01/24/23 18:06 20:31 00:02 Temperature 97.6 F Pulse Rate 97 103 H 100 Respiratory 18 18 17 Rate Blood Pressure 125/60 99/52 107/63 O2 Sat by Pulse 100 96 Oximetry - Reevaluation(s) Reevaluation #1: 01/23/23 Medical record is reviewed (Rubio Dueñas) Reevaluation #2: 01/23/23 patient symptoms are improving with hydration (Rubio Dueñas) Reevaluation #3: 01/23/23 Patient form of results questions answered (Rubio Dueñas) Reevaluation #4: Was pt. sent in by a medical professional or institution (Dr., PA, REGIONAL ENGINEER, urgent care, hospital, or fdc...) When possible be specific @ -no Did you speak to anyone other than the patient for history (EMS, parent, family, police, friend...)? What history was obtained from this source @ -no Did you review nursing and triage notes (agree or disagree)? Why? @ -agree Are old charts reviewed (outside hosp., previous admission, EMS record, old EKG, old radiological studies, urgent care reports/EKG's, fdc records)? Report findings @ -yes Differential Diagnosis (chest pain, altered mental status, abdominal pain women, abdominal pain men, vaginal bleeding, weakness, fever, dyspnea, syncope, headache, dizziness, GI bleed, back pain, seizure, CVA, palpatations, mental health, musculoskeletal)? @ -prior EKG interpreted by me (3pts min.). @ -yes X-rays interpreted by me (1pt min.). @ -no CT interpreted by me (1pt min.). @ -no U/S interpreted by me (1pt. min.). @ -no What testing was considered but not performed or refused? (CT, X-rays, U/S, labs)? Why? @ -none What meds were considered but not given or refused? Why? @ -none Did you discuss the management of the patient with other professionals (professionals i.e. , PA, REGIONAL ENGINEER, lab, RT, psych nurse, social service assistant, byproducts pump operator, teacher, chief privacy officer, casework specialist)? Give summary @ -no Was smoking cessation discussed for >3mins.? @ -no Was critical care preformed (if so, how long)? @ -no Were there social determinants of health that impacted care today? How? (Homelessness, low income, unemployed, alcoholism, drug addiction, transportation, low edu. Level, literacy, decrease access to med. care, alf, rehab)? @ -none Was there de-escalation of care discussed even if they declined (Discuss DNR or withdrawal of care, Hospice)? DNR status @ -no What co-morbidities impacted this encounter? (DM, HTN, Smoking, COPD, CAD, Cancer, CVA, ARF, Chemo, Hep., AIDS, mental health diagnosis, sleep apnea, morbid obesity)? @ -none Was patient admitted / discharged? Hospital course, mention meds given and route, prescriptions, significant lab abnormalities, going to OR and other pertinent info. @ - 52 female to the emergency department for evaluation today. Patient will be discharged home when he is currently feeling well with hydration, informed of lab values being significantly altered but at her normal baseline, patient states she feels one prefers discharged home Undiagnosed new problem with uncertain prognosis? @ -no Drug Therapy requiring intensive monitoring for toxicity (Heparin, Nitro, Insulin, Cardizem)? @ -no Were any procedures done? 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 @ -Acute Uncomplicated (without systemic symptoms) or Complicated (systemic symptoms)? @ -Complicated Side effects of treatment? @ -no Exacerbation, Progression, or Severe Exacerbation? @ -exacerbation Poses a threat to life or bodily function? How? (Chest pain, USA, ND, pneumonia, PE, COPD, DKA, ARF, appy, cholecystitis, CVA, Diverticulitis, Homicidal, Suicidal, threat to staff... and all critical care pts) @ -yes (Rubio Dueñas) Reevaluation #5: Differential Weakness: Hypoglycemia, shock, sepsis, hyponatremia, anemia, infection, ND, ETOH, adverse medicine reaction, overdose, stroke, this is not meant to be an all-inclusive list. Differential Dizziness: Benign paroxysmal positional Vertigo, Menieres disease, otitis media, acoustic neuroma, vertebrobasilar insufficiency, cerebellar stroke, encephalitis, hypovolemic, arrhythmia, coronary artery syndrome, anemia, this is not meant to be an all-inclusive list (Rubio Dueñas) EKG Findings - EKG Comments: EKG Findings:: EKG sinus tachycardia 103 MT 139 QRS 84 QTc 429 - EKG Results: EKG: interpreted by ERMD <Rubio Dueñas - Last Filed: 01/24/23 16:32> Medical Decision Making <Randee Le - Last Filed: 01/23/23 18:25> - Lab Data Result diagrams: 01/23/23 18:32 01/23/23 18:32 - EKG Data -: EKG Interpreted by Me <Rubio Dueñas - Last Filed: 01/24/23 16:32> - Medical Decision Making I preformed the quick note portion of this chart. Electronically signed by Randee Le PA-C (Randee Le) 52 female to the emergency department for evaluation today. Patient will be discharged home when he is currently feeling well with hydration, informed of lab values being significantly altered but at her normal baseline, patient states she feels one prefers discharged home (Rubio Dueñas) - Lab Data Lab Results 01/23/23 01/23/23 01/23/23 Range/Units 18:32 18:32 18:32 WBC 7.4 (3.8-10.6) k/uL RBC 1.90 L (3.80-5.40) m/uL Hgb 8.0 L (11.4-16.0) gm/dL Hct 22.7 L (34.0-46.0) % MCV 119.7 H (80.0-100.0) fL MCH 42.3 H (25.0-35.0) pg MCHC 35.3 (31.0-37.0) g/dL RDW 17.7 H (11.5-15.5) % Plt Count 30 L (150-450) k/uL MPV 8.3 Neutrophils % 75 % Lymphocytes % 13 % Monocytes % 7 % Eosinophils % 3 % Basophils % 0 % Neutrophils # 5.6 (1.3-7.7) k/uL Lymphocytes # 1.0 (1.0-4.8) k/uL Monocytes # 0.5 (0-1.0) k/uL Eosinophils # 0.2 (0-0.7) k/uL Basophils # 0.0 (0-0.2) k/uL Manual Slide Review Performed Hypochromasia Slight Poikilocytosis Moderate Anisocytosis Slight Macrocytosis Marked A PT 22.4 H (10.0-12.5) sec INR 2.2 H (<1.2) APTT 35.3 H (22.0-30.0) sec Sodium 132 L (137-145) mmol/L Potassium 3.5 (3.5-5.1) mmol/L Chloride 97 L (98-107) mmol/L Carbon Dioxide 24 (22-30) mmol/L Anion Gap 11 mmol/L BUN 9 (7-17) mg/dL Creatinine 0.75 (0.52-1.04) mg/dL Est GFR (CKD-EPI)AfAm >90 (>60 ml/min/1.73 sqM) Est GFR (CKD-EPI)NonAf >90 (>60 ml/min/1.73 sqM) Glucose 96 (74-99) mg/dL Lactic Ac Sepsis Rflx Plasma Lactic Acid Helad[place] (0.7-2.0) mmol/L Calcium 8.4 (8.4-10.2) mg/dL Phosphorus (2.5-4.5) mg/dL Magnesium (1.6-2.3) mg/dL Total Bilirubin 19.9 H* (0.2-1.3) mg/dL AST 74 H (14-36) U/L ALT 42 H (4-34) U/L Alkaline Phosphatase 155 H (38-126) U/L Ammonia (<30) umol/L Troponin I (0.000-0.034) ng/mL Total Protein 7.3 (6.3-8.2) g/dL Albumin 3.1 L (3.5-5.0) g/dL Lipase (23-300) U/L Urine Color Urine Appearance (Clear) Urine pH (5.0-8.0) Ur Specific [place] (1.001-1.035) Urine Protein (Negative) Urine Glucose (UA) (Negative) Urine Ketones (Negative) Urine Blood (Negative) Urine Nitrite (Negative) Urine Bilirubin (Negative) Urine Urobilinogen (<2.0) mg/dL Ur Leukocyte Esterase (Negative) Urine RBC (0-5) /hpf Urine WBC (0-5) /hpf Ur Squamous Epith Cells (0-4) /hpf Urine Bacteria (None) /hpf Urine Mucus (None) /hpf Serum Alcohol mg/dL 01/23/23 01/23/23 01/23/23 Range/Units 18:32 18:32 18:32 WBC (3.8-10.6) k/uL RBC (3.80-5.40) m/uL Hgb (11.4-16.0) gm/dL Hct (34.0-46.0) % MCV (80.0-100.0) fL MCH (25.0-35.0) pg MCHC (31.0-37.0) g/dL RDW (11.5-15.5) % Plt Count (150-450) k/uL MPV Neutrophils % % Lymphocytes % % Monocytes % % Eosinophils % % Basophils % % Neutrophils # (1.3-7.7) k/uL Lymphocytes # (1.0-4.8) k/uL Monocytes # (0-1.0) k/uL Eosinophils # (0-0.7) k/uL Basophils # (0-0.2) k/uL Manual Slide Review Hypochromasia Poikilocytosis Anisocytosis Macrocytosis PT (10.0-12.5) sec INR (<1.2) APTT (22.0-30.0) sec Sodium (137-145) mmol/L Potassium (3.5-5.1) mmol/L Chloride (98-107) mmol/L Carbon Dioxide (22-30) mmol/L Anion Gap mmol/L BUN (7-17) mg/dL Creatinine (0.52-1.04) mg/dL Est GFR (CKD-EPI)AfAm (>60 ml/min/1.73 sqM) Est GFR (CKD-EPI)NonAf (>60 ml/min/1.73 sqM) Glucose (74-99) mg/dL Lactic Ac Sepsis Rflx Plasma Lactic Acid Heladio 2.2 H* (0.7-2.0) mmol/L Calcium (8.4-10.2) mg/dL Phosphorus (2.5-4.5) mg/dL Magnesium (1.6-2.3) mg/dL Total Bilirubin (0.2-1.3) mg/dL AST (14-36) U/L ALT (4-34) U/L Alkaline Phosphatase (38-126) U/L Ammonia <9 (<30) umol/L Troponin I (0.000-0.034) ng/mL Total Protein (6.3-8.2) g/dL Albumin (3.5-5.0) g/dL Lipase (23-300) U/L Urine Color Dark [place] Urine Appearance Slightly Cloudy H (Clear) Urine pH 5.5 (5.0-8.0) Ur Specific [place] 1.020 (1.001-1.035) Urine Protein Negative (Negative) Urine Glucose (UA) Negative (Negative) Urine Ketones Negative (Negative) Urine Blood Negative (Negative) Urine Nitrite Negative (Negative) Urine Bilirubin 2+ H (Negative) Urine Urobilinogen 4.0 (<2.0) mg/dL Ur Leukocyte Esterase Negative (Negative) Urine RBC <1 (0-5) /hpf Urine WBC 1 (0-5) /hpf Ur Squamous Epith Cells 4 (0-4) /hpf Urine Bacteria Rare H (None) /hpf Urine Mucus Rare H (None) /hpf Serum Alcohol mg/dL 01/23/23 01/23/23 01/23/23 Range/Units 18:32 18:32 20:35 WBC (3.8-10.6) k/uL RBC (3.80-5.40) m/uL Hgb (11.4-16.0) gm/dL Hct (34.0-46.0) % MCV (80.0-100.0) fL MCH (25.0-35.0) pg MCHC (31.0-37.0) g/dL RDW (11.5-15.5) % Plt Count (150-450) k/uL MPV Neutrophils % % Lymphocytes % % Monocytes % % Eosinophils % % Basophils % % Neutrophils # (1.3-7.7) k/uL Lymphocytes # (1.0-4.8) k/uL Monocytes # (0-1.0) k/uL Eosinophils # (0-0.7) k/uL Basophils # (0-0.2) k/uL Manual Slide Review Hypochromasia Poikilocytosis Anisocytosis Macrocytosis PT (10.0-12.5) sec INR (<1.2) APTT (22.0-30.0) sec Sodium (137-145) mmol/L Potassium (3.5-5.1) mmol/L Chloride (98-107) mmol/L Carbon Dioxide (22-30) mmol/L Anion Gap mmol/L BUN (7-17) mg/dL Creatinine (0.52-1.04) mg/dL Est GFR (CKD-EPI)AfAm (>60 ml/min/1.73 sqM) Est GFR (CKD-EPI)NonAf (>60 ml/min/1.73 sqM) Glucose (74-99) mg/dL Lactic Ac Sepsis Rflx Y Plasma Lactic Acid Heladio (0.7-2.0) mmol/L Calcium (8.4-10.2) mg/dL Phosphorus 3.4 (2.5-4.5) mg/dL Magnesium 1.7 (1.6-2.3) mg/dL Total Bilirubin (0.2-1.3) mg/dL AST (14-36) U/L ALT (4-34) U/L Alkaline Phosphatase (38-126) U/L Ammonia (<30) umol/L Troponin I 0.026 (0.000-0.034) ng/mL Total Protein (6.3-8.2) g/dL Albumin (3.5-5.0) g/dL Lipase 241 (23-300) U/L Urine Color Urine Appearance (Clear) Urine pH (5.0-8.0) Ur Specific [place] (1.001-1.035) Urine Protein (Negative) Urine Glucose (UA) (Negative) Urine Ketones (Negative) Urine Blood (Negative) Urine Nitrite (Negative) Urine Bilirubin (Negative) Urine Urobilinogen (<2.0) mg/dL Ur Leukocyte Esterase (Negative) Urine RBC (0-5) /hpf Urine WBC (0-5) /hpf Ur Squamous Epith Cells (0-4) /hpf Urine Bacteria (None) /hpf Urine Mucus (None) /hpf Serum Alcohol mg/dL 01/23/23 01/23/23 Range/Units 21:00 22:59 WBC (3.8-10.6) k/uL RBC (3.80-5.40) m/uL Hgb (11.4-16.0) gm/dL Hct (34.0-46.0) % MCV (80.0-100.0) fL MCH (25.0-35.0) pg MCHC (31.0-37.0) g/dL RDW (11.5-15.5) % Plt Count (150-450) k/uL MPV Neutrophils % % Lymphocytes % % Monocytes % % Eosinophils % % Basophils % % Neutrophils # (1.3-7.7) k/uL Lymphocytes # (1.0-4.8) k/uL Monocytes # (0-1.0) k/uL Eosinophils # (0-0.7) k/uL Basophils # (0-0.2) k/uL Manual Slide Review Hypochromasia Poikilocytosis Anisocytosis Macrocytosis PT (10.0-12.5) sec INR (<1.2) APTT (22.0-30.0) sec Sodium (137-145) mmol/L Potassium (3.5-5.1) mmol/L Chloride (98-107) mmol/L Carbon Dioxide (22-30) mmol/L Anion Gap mmol/L BUN (7-17) mg/dL Creatinine (0.52-1.04) mg/dL Est GFR (CKD-EPI)AfAm (>60 ml/min/1.73 sqM) Est GFR (CKD-EPI)NonAf (>60 ml/min/1.73 sqM) Glucose (74-99) mg/dL Lactic Ac Sepsis Rflx Plasma Lactic Acid [place] 1.8 (0.7-2.0) mmol/L Calcium (8.4-10.2) mg/dL Phosphorus (2.5-4.5) mg/dL Magnesium (1.6-2.3) mg/dL Total Bilirubin (0.2-1.3) mg/dL AST (14-36) U/L ALT (4-34) U/L Alkaline Phosphatase (38-126) U/L Ammonia (<30) umol/L Troponin I (0.000-0.034) ng/mL Total Protein (6.3-8.2) g/dL Albumin (3.5-5.0) g/dL Lipase (23-300) U/L Urine Color Urine Appearance (Clear) Urine pH (5.0-8.0) Ur Specific [place] (1.001-1.035) Urine Protein (Negative) Urine Glucose (UA) (Negative) Urine Ketones (Negative) Urine Blood (Negative) Urine Nitrite (Negative) Urine Bilirubin (Negative) Urine Urobilinogen (<2.0) mg/dL Ur Leukocyte Esterase (Negative) Urine RBC (0-5) /hpf Urine WBC (0-5) /hpf Ur Squamous Epith Cells (0-4) /hpf Urine Bacteria (None) /hpf Urine Mucus (None) /hpf Serum Alcohol <10 mg/dL Disposition <Randee Le - Last Filed: 01/23/23 18:25> Is patient prescribed a controlled substance at d/c from ED?: No Time of Disposition: :10 <Rubio Dueñas - Last Filed: 01/24/23 16:32> Clinical Impression: Ascites, Cirrhosis of liver, Encephalopathy, Dizziness, Thrombocytopenia, Jaundice Disposition: HOME SELF-CARE Condition: Fair Instructions (If sedation given, give patient instructions): Dizziness (ED) Referrals: Nonstaff,Physician [REFERRING] - 1-2 days
[2023-01-23] MEDS ORDERED: SODIUM CHLORIDE 0.9% 1,000 ML IV STA (19:51)
[2023-01-23 19:55] LABS: Anisocytosis Slight; Basophils % (A) 0 %; Eosinophils # (A) 0.2 k/uL (0-0.7); Eosinophils % (A) 3 %; HCT 22.7 % (34.0-46.0); Hypochromasia Slight; Lymphocytes % (A) 13 %; MCHC 35.3 g/dL (31.0-37.0); MCV 119.7 fL (80.0-100.0); Macrocytosis Marked; Mean Platelet Volume 8.3; Monocytes # (A) 0.5 k/uL (0-1.0); Monocytes % (A) 7 %; Neutrophils # (A) 5.6 k/uL (1.3-7.7); Neutrophils % (A) 75 %; Poikilocytosis Moderate; RDW 17.7 % (11.5-15.5); WBC 7.4 k/uL (3.8-10.6)
[2023-01-23 20:05] LABS: ALT 42 U/L (4-34); AST 74 U/L (14-36); African American GFR (CKD) >90 (>60 ml/min/1.73 sqM); Albumin 3.1 g/dL (3.5-5.0); Alkaline Phosphatase 155 U/L (38-126); Anion Gap 11 mmol/L; Blood Urea Nitrogen 9 mg/dL (7-17); Calcium 8.4 mg/dL (8.4-10.2); Carbon Dioxide 24 mmol/L (22-30); Chloride 97 mmol/L (98-107); Glucose 96 mg/dL (74-99); Non-African American GFR(CKD) >90 (>60 ml/min/1.73 sqM); Potassium 3.5 mmol/L (3.5-5.1); Sodium 132 mmol/L (137-145); Total Protein 7.3 g/dL (6.3-8.2)
[2023-01-23 20:11] LABS: MCH 42.3 pg (25.0-35.0)
[2023-01-23 20:17] LABS: Total Bilirubin 19.9 mg/dL (0.2-1.3)
[2023-01-23 20:38] LABS: Magnesium 1.7 mg/dL (1.6-2.3); Phosphorus 3.4 mg/dL (2.5-4.5)
[2023-01-23 20:39] LABS: Platelet Count 30 k/uL (150-450)
[2023-01-23 20:53] LABS: INR 2.2 (<1.2); Partial Thromboplastin Time 35.3 sec (22.0-30.0); Prothrombin Time 22.4 sec (10.0-12.5)
[2023-01-23 23:46] LABS: Appearance,Urine Slightly Cloudy (Clear); Bilirubin,Urine 2+ (Negative); Color,Urine Dark Orange; Glucose,Urine (UA) Negative (Negative); Ketones,Urine Negative (Negative); PH, Urine 5.5 (5.0-8.0); Protein,Urine Negative (Negative)
[2023-01-23 23:47] LABS: Blood,Urine Negative (Negative); Leukocyte Esterase,Urine Negative (Negative); Nitrite,Urine Negative (Negative)
[2023-01-23 23:53] LABS: Bacteria,Urine Rare /hpf; Mucus,Urine Rare /hpf; RBC,Urine <1 /hpf (0-5); Squamous Epithelial Cell,Urine 4 /hpf (0-4); WBC,Urine 1 /hpf (0-5)
[2023-01-24 00:32] VITALS: BP 107/63; PULSE 100; RESP 17
== END 2023-01-24 00:04 | disposition home or self-care (01) ==
LOC: EC 17:58
DX: G93.40 Encephalopathy, unspecified (principal); K74.60 Unspecified cirrhosis of liver; D69.6 Thrombocytopenia, unspecified; R18.8 Other ascites; R42 Dizziness and giddiness; J45.909 Unspecified asthma, uncomplicated; F31.9 Bipolar disorder, unspecified; F41.9 Anxiety disorder, unspecified; F17.200 Nicotine dependence, unspecified, uncomplicated; Z88.2 Allergy status to sulfonamides; Z88.0 Allergy status to penicillin; Z79.899 Other long term (current) drug therapy; Z91.018 Allergy to other foods
CPT/HCPCS: 36415; 93005; 80053; 82140; 83605; 83690; 83735; 84100; 84484; 85025; 85610; 85730; 81001; 99284; 96360; G0480; 80320

== ENCOUNTER 2023-01-31 02:00 | Inpatient (IN) | payer OTHER ==
--- NOTE | 2023-01-31 02:34 | ED ---
General Adult HPI - General Chief complaint: Dizziness Stated complaint: Abd bloating, Dizziness Time Seen by Provider: 01/31/23 02:26 Source: patient Mode of arrival: ambulatory Limitations: no limitations - History of Present Illness Initial comments: Dictation was produced using [employer] dictation software. please excuse any grammatical, word or spelling errors. Chief Complaint: 52-year-old female presents with dizziness and abdominal pain History of Present Illness: Patient 52-year-old cirrhotic female with chronic jaundice presents to the ER for dizziness and abdominal pain. She states that the pain is mild and located to her lower right abdomen. Patient's last paracentesis was one month ago. She has been having some dyspnea mostly with exertion. at the bedside believes that patient should get a paracentesis soon. Patient states she is dizzy. Denies any sensation of the room spinning. Denies any fever, chills or any other constitutional symptoms. The ROS documented in this emergency department record has been reviewed and confirmed by me. Those systems with pertinent positive or negative responses have been documented in the HPI. All other systems are other negative and/or noncontributory. - Related Data Home Medications Medication Instructions Recorded Confirmed FLUoxetine HCL [PROzac] 40 mg PO DAILY 10/01/22 01/23/23 Potassium Chloride ER [K-Dur 10] 10 meq PO DAILY 10/01/22 01/23/23 Thiamine [Vitamin B-1] 100 mg PO DAILY 10/01/22 01/23/23 Ubidecarenone [Coenzyme Q10] 100 mg PO DAILY 12/02/22 01/23/23 Previous Rx's Medication Instructions Recorded Lactulose [Cephulac] 30 gm PO TID #120 ml 10/04/22 Phytonadione Oral [Vitamin K Oral] 5 mg PO DAILY #15 ml 12/04/22 Midodrine [ProAmatine] 5 mg PO AC-TID #90 tab 01/05/23 Pantoprazole Sodium [Protonix] 40 mg PO DAILY PRN #60 tab 01/05/23 levETIRAcetam [Keppra] 500 mg PO Q12HR #60 tab 01/05/23 Furosemide [Lasix] 20 mg PO DAILY #30 tab 01/15/23 Spironolactone [Aldactone] 100 mg PO DAILY #30 tab 01/15/23 Allergies Allergy/AdvReac Type Severity Reaction Status Date / Time Penicillins Allergy Swelling Verified 01/31/23 02:13 tongue Sulfa (Sulfonamide Allergy Swelling Verified 01/31/23 02:13 Antibiotics) tongue walnut Allergy Anaphylaxis Verified 01/31/23 02:13 Review of Systems ROS Statement: Those systems with pertinent positive or pertinent negative responses have been documented in the HPI. ROS Other: All systems not noted in ROS Statement are negative. Past Medical History Past Medical History: Asthma, Liver Disease Additional Past Medical History / Comment(s): ascites,paracentesis 01-08-18, low platelets, previous ETOH abuse History of Any Multi-Drug Resistant Organisms: None Reported Past Surgical History: No Surgical Hx Reported Additional Past Surgical History / Comment(s): repair to spleen [place] Ruptured spleen in 1988 Past Anesthesia/Blood Transfusion Reactions: No Reported Reaction Additional Past Anesthesia/Blood Transfusion Reaction / Comment(s): Unsure if had blood transfusion in past Past Psychological History: Anxiety, Bipolar, Depression Smoking Status: Current every day smoker Past Alcohol Use History: None Reported Past Drug Use History: None Reported - Past Family History Sister(s) Additional Family Medical History / Comment(s): closed head injury Mother Family Medical History: Diabetes Mellitus, Hyperlipidemia General Exam - General Exam Comments Initial Comments: PHYSICAL EXAM: General Impression: Alert and oriented x3, not in acute distress HEENT: Normocephalic atraumatic, extra-ocular movements intact, pupils equal and reactive to light bilaterally, mucous membranes moist. Cardiovascular: Heart regular rate and rhythm Chest: Able to complete full sentences, no retractions, no tachypnea Abdomen: abdomen soft, non-tender, non-distended, no organomegaly Musculoskeletal: Pulses present and equal in all extremities, no peripheral edema Motor: no focal deficits noted Neurological: CN II-XII grossly intact, no focal motor or sensory deficits noted Skin: Intact with no visualized rashes Psych: Normal affect and mood Limitations: no limitations Course Vital Signs 01/31/23 01/31/23 01/31/23 02:13 02:54 05:17 Temperature 98.2 F Pulse Rate 109 H 105 H 105 H Respiratory 18 18 16 Rate Blood Pressure 113/63 109/59 92/64 O2 Sat by Pulse 98 100 100 Oximetry 01/31/23 05:45 Temperature Pulse Rate 108 H Respiratory 16 Rate Blood Pressure 100/55 O2 Sat by Pulse 100 Oximetry EKG Findings - EKG Comments: EKG Findings:: My EKG interpretation: Ventricular rate 110, sinus tachycardia,. 141, QRS 82, QTC 346. No MI prolongation, no QTC prolongation, no ST or T-wave changes noted. Overall, this EKG is unremarkable Medical Decision Making - Medical Decision Making Was pt. sent in by a medical professional or institution (, [place], [employer], urgent care, hospital, or senior care...) When possible be specific @ -No Did you speak to anyone other than the patient for history (EMS, parent, family, police, friend...)? What history was obtained from this source @ -No Did you review nursing and triage notes (agree or disagree)? Why? @ -I reviewed and agree with nursing and triage notes Were old charts reviewed (outside hosp., previous admission, EMS record, old EKG, old radiological studies, urgent care reports/EKG's, senior care records)? Report findings @ -No old charts were reviewed Differential Diagnosis (chest pain, altered mental status, abdominal pain women, abdominal pain men, vaginal bleeding, musculoskeletal, weakness, fever, dyspnea, syncope, headache, dizziness, GI bleed, back pain, seizure, CVA, palpatations, mental health)? @ -Differential Dizziness: Benign paroxysmal positional Vertigo, Menieres disease, otitis media, acoustic neuroma, vertebrobasilar insufficiency, cerebellar stroke, encephalitis, hypovolemic, arrhythmia, coronary artery syndrome, anemia, this is not meant to be an all-inclusive list EKG interpreted by me (3pts min.). @ -See above X-rays interpreted by me (1pt min.). @ -None done CT interpreted by me (1pt min.). @ -None done U/S interpreted by me (1pt. min.). @ -None done What testing was considered but not performed or refused? (CT, X-rays, U/S, la bs)? Why? @ -None What meds were considered but not given or refused? Why? @ -None Did you discuss the management of the patient with other professionals (professionals i.e. , [facility], [employer], lab, RT, psych nurse, manager social media, senior controls technician, teacher, senior escrow officer, human services case manager)? Give summary @ Case discussed with hospitalist for admission Was smoking cessation discussed for >3mins.? @ -No Was critical care preformed (if so, how long)? @ -No Were there social determinants of health that impacted care today? How? (Homelessness, low income, unemployed, alcoholism, drug addiction, transportation, low edu. Level, literacy, decrease access to med. care, fpc, rehab)? @ -No Was there de-escalation of care discussed even if they declined (Discuss DNR or withdrawal of care, Hospice)? DNR status @ -No What co-morbidities impacted this encounter? (DM, HTN, Smoking, COPD, CAD, Cancer, CVA, ARF, Chemo, Hep., AIDS, mental health diagnosis, sleep apnea, morbid obesity)? @ -None Was patient admitted / discharged? Hospital course, mention meds given and route, prescriptions, significant lab abnormalities, going to OR and other pertinent info. @ -52 Year-old female presents with dizziness and abdominal distention. Vital signs stable. Patient is a chronic cirrhotic with liver failure. Labs are within acceptable limits. They all appear to be secondary to chronic liver failure. Patient would likely benefit from emergent paracentesis. Will be admitted observation consultation to interventional radiology. Undiagnosed new problem with uncertain prognosis? @ -No Drug Therapy requiring intensive monitoring for toxicity (Heparin, Nitro, Insulin, Cardizem)? @ -No Were any procedures done? @ -No Diagnosis/symptom? Acute, or Chronic, or Acute on Chronic? Uncomplicated (without systemic symptoms) or Complicated (systemic symptoms)? @ -Symptomatic ascites Side effects of treatment? @ -No Exacerbation, Progression, or Severe Exacerbation? @ -No Poses a threat to life or bodily function? How? (Chest pain, [place], [place], pneumonia, PE, COPD, DKA, ARF, appy, cholecystitis, CVA, Diverticulitis, Homicidal, Suicidal, threat to staff... and all critical care pts) @ -yes - Lab Data Result diagrams: 01/31/23 04:01 01/31/23 04:01 Lab Results 01/31/23 01/31/23 01/31/23 Range/Units 04:01 04:01 04:01 WBC 7.9 (3.8-10.6) k/uL RBC 1.82 L (3.80-5.40) m/uL Hgb 7.8 L (11.4-16.0) gm/dL Hct 22.1 L (34.0-46.0) % MCV 121.8 H (80.0-100.0) fL MCH 42.9 H (25.0-35.0) pg MCHC 35.2 (31.0-37.0) g/dL RDW 18.3 H (11.5-15.5) % Plt Count 27 L (150-450) k/uL MPV 9.7 Neutrophils % 77 % Lymphocytes % 9 % Monocytes % 7 % Eosinophils % 3 % Basophils % 0 % Neutrophils # 6.0 (1.3-7.7) k/uL Lymphocytes # 0.7 L (1.0-4.8) k/uL Monocytes # 0.6 (0-1.0) k/uL Eosinophils # 0.3 (0-0.7) k/uL Basophils # 0.0 (0-0.2) k/uL Polychromasia Present Hypochromasia Slight Poikilocytosis Moderate Anisocytosis Slight Anisocytosis (manual) Present Macrocytosis Marked A PT (10.0-12.5) sec INR (<1.2) APTT (22.0-30.0) sec Sodium 131 L (137-145) mmol/L Potassium 3.2 L (3.5-5.1) mmol/L Chloride 97 L (98-107) mmol/L Carbon Dioxide 23 (22-30) mmol/L Anion Gap 11 mmol/L BUN 10 (7-17) mg/dL Creatinine 0.81 (0.52-1.04) mg/dL Est GFR (CKD-EPI)AfAm >90 (>60 ml/min/1.73 sqM) Est GFR (CKD-EPI)NonAf 84 (>60 ml/min/1.73 sqM) Glucose 110 H (74-99) mg/dL Plasma Lactic Acid Heladio 2.9 H* (0.7-2.0) mmol/L Calcium 8.2 L (8.4-10.2) mg/dL Total Bilirubin 20.5 H* (0.2-1.3) mg/dL AST 57 H (14-36) U/L ALT 35 H (4-34) U/L Alkaline Phosphatase 144 H (38-126) U/L Ammonia <9 (<30) umol/L Troponin I (0.000-0.034) ng/mL Total Protein 6.6 (6.3-8.2) g/dL Albumin 2.7 L (3.5-5.0) g/dL 01/31/23 01/31/23 Range/Units 04:01 04:01 WBC (3.8-10.6) k/uL RBC (3.80-5.40) m/uL Hgb (11.4-16.0) gm/dL Hct (34.0-46.0) % MCV (80.0-100.0) fL MCH (25.0-35.0) pg MCHC (31.0-37.0) g/dL RDW (11.5-15.5) % Plt Count (150-450) k/uL MPV Neutrophils % % Lymphocytes % % Monocytes % % Eosinophils % % Basophils % % Neutrophils # (1.3-7.7) k/uL Lymphocytes # (1.0-4.8) k/uL Monocytes # (0-1.0) k/uL Eosinophils # (0-0.7) k/uL Basophils # (0-0.2) k/uL Polychromasia Hypochromasia Poikilocytosis Anisocytosis Anisocytosis (manual) Macrocytosis PT 23.6 H (10.0-12.5) sec INR 2.4 H (<1.2) APTT 35.8 H (22.0-30.0) sec Sodium (137-145) mmol/L Potassium (3.5-5.1) mmol/L Chloride (98-107) mmol/L Carbon Dioxide (22-30) mmol/L Anion Gap mmol/L BUN (7-17) mg/dL Creatinine (0.52-1.04) mg/dL Est GFR (CKD-EPI)AfAm (>60 ml/min/1.73 sqM) Est GFR (CKD-EPI)NonAf (>60 ml/min/1.73 sqM) Glucose (74-99) mg/dL Plasma Lactic Acid Heladio (0.7-2.0) mmol/L Calcium (8.4-10.2) mg/dL Total Bilirubin (0.2-1.3) mg/dL AST (14-36) U/L ALT (4-34) U/L Alkaline Phosphatase (38-126) U/L Ammonia (<30) umol/L Troponin I 0.024 (0.000-0.034) ng/mL Total Protein (6.3-8.2) g/dL Albumin (3.5-5.0) g/dL Disposition Clinical Impression: Ascites Disposition: ADMITTED IP TO THIS [facility] Condition: Fair Referrals: Nonstaff,Physician [REFERRING] - 1-2 days Decision Time: 07:14
[2023-01-31 05:27] LABS: ALT 35 U/L (4-34); AST 57 U/L (14-36); African American GFR (CKD) >90 (>60 ml/min/1.73 sqM); Albumin 2.7 g/dL (3.5-5.0); Alkaline Phosphatase 144 U/L (38-126); Anion Gap 11 mmol/L; Blood Urea Nitrogen 10 mg/dL (7-17); Calcium 8.2 mg/dL (8.4-10.2); Carbon Dioxide 23 mmol/L (22-30); Chloride 97 mmol/L (98-107); Glucose 110 mg/dL (74-99); Non-African American GFR(CKD) 84 (>60 ml/min/1.73 sqM); Potassium 3.2 mmol/L (3.5-5.1); Sodium 131 mmol/L (137-145); Total Protein 6.6 g/dL (6.3-8.2)
[2023-01-31 05:33] LABS: Anisocytosis Slight; Basophils % (A) 0 %; Eosinophils # (A) 0.3 k/uL (0-0.7); Eosinophils % (A) 3 %; HCT 22.1 % (34.0-46.0); HGB 7.8 gm/dL (11.4-16.0); Hypochromasia Slight; INR 2.4 (<1.2); Lymphocytes # (A) 0.7 k/uL (1.0-4.8); Lymphocytes % (A) 9 %; MCH 42.9 pg (25.0-35.0); MCHC 35.2 g/dL (31.0-37.0); MCV 121.8 fL (80.0-100.0); Macrocytosis Marked; Mean Platelet Volume 9.7; Monocytes # (A) 0.6 k/uL (0-1.0); Monocytes % (A) 7 %; Neutrophils % (A) 77 %; Partial Thromboplastin Time 35.8 sec (22.0-30.0); Platelet Count 27 k/uL (150-450); Poikilocytosis Moderate; Prothrombin Time 23.6 sec (10.0-12.5); RBC 1.82 m/uL (3.80-5.40); RDW 18.3 % (11.5-15.5); WBC 7.9 k/uL (3.8-10.6)
[2023-01-31 05:47] LABS: Lactic Acid, Venous 2.9 mmol/L (0.7-2.0); Total Bilirubin 20.5 mg/dL (0.2-1.3)
[2023-01-31 06:14] LABS: Anisocytosis (M) Present; Polychromasia Present
[2023-01-31] MEDS ORDERED: NALOXONE 0.4 MG/ML 1 ML VIAL IV PRN (07:10)
[2023-01-31] MEDS: SODIUM CHLORIDE 0.9% 1,000 ML IV SCH (07:54)
[2023-01-31] MEDS ORDERED: PANTOPRAZOLE 40 MG TABLET PO PRN (17:12)
[2023-01-31] MEDS ORDERED: OXYMETAZOLINE 0.05% NASL SPRAY 1 SPRAY BOTTLE NASAL STA (17:13)
[2023-01-31] MEDS: MIDODRINE 5 MG TAB PO SCH (17:35)
[2023-01-31] MEDS: LACTULOSE 20 GM/30 ML CUP PO SCH ×2 (17:35→20:01)
[2023-01-31] MEDS: levETIRAcetam 500 MG TAB PO SCH (20:01)
[2023-01-31] MEDS ORDERED: POTASSIUM CHLORIDE ER 20 MEQ TAB.ER PO STA (23:20)
--- NOTE | 2023-01-31 23:29 | P.HPIM ---
History of Present Illness H&P Date: 01/31/23 Chief Complaint: Abdominal distention Patient is a 52-year-old female with a known history of alcoholic liver cirrhosis with prior history of paracentesis on 12/28/2022, history of alcohol abuse, asthma, anxiety/depression bipolar disorder and currently everyday smoker and marijuana use presents to the hospital with complaints of dizziness and abdominal bloating. There is also complaining of mild abdominal pain in the lower abdominal region on admission. She is also complaining of dyspnea with exertion and leg swelling. Denies any fever or chills. No cough or sputum production. No complaints of chest pain. Patient is also complaining of room spinning on admission. EKG showed sinus tachycardia with occasional supraventricular premature complexes. On admission patient was tachycardic with heart rate 105, blood pressure 119/59 pulse ox 100% on room air. Laboratory data showed WBC 7.9 hemoglobin 7.8 MCV 121.8 and platelets 27 INR 2.4 Sodium 131 potassium 3.2, chloride 97, blood sugar 110 lactic acid 2.9 on admission Total bilirubin level is 20.5, AST 57 ALT 35 alk phos 144 troponin 0.024 and albumin 2.7 Ammonia less than 9 Review of Systems Constitutional: Patient denies any fever or chills. generalized weakness. Abdomen: Patient denied any nausea or vomiting. Patient does have abdominal distention/pain and no diarrhea. Cardiovascular: Patient denies any chest pain. Patient does have exertional dyspnea. No palpitations. Respiratory: patient denied any cough . no sputum production. No shortness of breath Neurologic: Patient denied any numbness or tingling or headache. Musculoskeletal: Patient denies any complaints of joint swelling or deformity. Skin: Negative Psychiatric: Negative Endocrine: No heat or cold intolerance. No recent weight gain. Genitourinary: No dysuria or hematuria. All other 14 point ROS negative except the above Past Medical History Past Medical History: Asthma, Liver Disease Additional Past Medical History / Comment(s): ascites,paracentesis 12/28/22, low platelets, previous ETOH abuse History of Any Multi-Drug Resistant Organisms: None Reported Past Surgical History: No Surgical Hx Reported Additional Past Surgical History / Comment(s): repair to [place] Ruptured spleen in 1988 Past Anesthesia/Blood Transfusion Reactions: No Reported Reaction Additional Past Anesthesia/Blood Transfusion Reaction / Comment(s): Unsure if had blood transfusion in past Past Psychological History: Anxiety, Bipolar, Depression Additional Psychological History / Comment(s): ETOH use Smoking Status: Current every day smoker Past Alcohol Use History: None Reported Additional Past Alcohol Use History / Comment(s): Stated that pt quit drinking in August 2022 Past Drug Use History: None Reported Additional Drug Use History / Comment(s): Marijuana use; Smokes a pack a day of cigarettes - Past Family History Sister(s) Additional Family Medical History / Comment(s): closed head injury Mother Family Medical History: Diabetes Mellitus, Hyperlipidemia Medications and Allergies Home Medications Medication Instructions Recorded Confirmed Type FLUoxetine HCL [PROzac] 40 mg PO DAILY 10/01/22 01/31/23 History Potassium Chloride ER [K-Dur 10] 10 meq PO DAILY 10/01/22 01/31/23 History Thiamine [Vitamin B-1] 100 mg PO DAILY 10/01/22 01/31/23 History Lactulose [Cephulac] 30 gm PO TID #120 ml 10/04/22 01/31/23 Rx Ubidecarenone [Coenzyme Q10] 100 mg PO DAILY 12/02/22 01/31/23 History Phytonadione Oral [Vitamin K Oral] 5 mg PO DAILY #15 ml 12/04/22 01/31/23 Rx Midodrine [ProAmatine] 5 mg PO AC-TID #90 tab 01/05/23 01/31/23 Rx Pantoprazole Sodium [Protonix] 40 mg PO DAILY PRN #60 tab 01/05/23 01/31/23 Rx levETIRAcetam [Keppra] 500 mg PO Q12HR #60 tab 01/05/23 01/31/23 Rx Furosemide [Lasix] 20 mg PO DAILY #30 tab 01/15/23 01/31/23 Rx Spironolactone [Aldactone] 100 mg PO DAILY #30 tab 01/15/23 01/31/23 Rx Allergies Allergy/AdvReac Type Severity Reaction Status Date / Time Penicillins Allergy Swelling Verified 01/31/23 11:03 tongue Sulfa (Sulfonamide Allergy Swelling Verified 01/31/23 11:03 Antibiotics) tongue walnut Allergy Anaphylaxis Verified 01/31/23 11:03 Physical Exam Vitals: Vital Signs Temp Pulse Pulse Resp BP BP Pulse Ox 01/31/23 15:00 98.3 F 94 17 100/61 94 L 11/04/23 13:22 110 H 16 01/31/23 12:41 110 H 16 01/31/23 12:26 98.0 F 110 H 16 108/68 95 01/31/23 12:06 98.3 F 109 H 18 110/62 97 01/31/23 07:53 110 H 18 100/59 96 01/31/23 05:45 108 H 16 100/55 100 01/31/23 05:17 105 H 16 92/64 100 01/31/23 02:54 105 H 18 109/59 100 01/31/23 02:13 98.2 F 109 H 18 113/63 98 Intake and Output 01/31/23 01/31/23 01/31/23 06:59 14:59 22:59 Other: Voiding Method Toilet Weight 72.575 kg 72.575 kg PHYSICAL EXAMINATION: Patient is lying in the bed comfortably, no acute distress, awake alert and oriented.. HEENT: Normocephalic. Neck is supple. Pupils reactive. Nostrils clear. Oral cavity is moist. Icteric. Neck reveals no JVD, carotid bruits, or thyromegaly. CHEST EXAMINATION: Trachea is central. Symmetrical expansion. Bibasilar diminished sounds.. CARDIAC: Normal S1, S2 with no gallops. No murmurs ABDOMEN: Soft. Bowel sounds present. Nontender. Distended with ascites and fluid thrill. No organomegaly could not be appreciated.. No abdominal bruits. Extremities: Bilateral lower extremity trace edema. No clubbing or cyanosis Neurologically awake, alert, oriented x3 with well-coordinated movements. No gross focal deficits noted Skin: No rash or skin lesions. Psychiatric: Coperative. Nonsuicidal, Musculoskeletal: No joint swelling or deformity. Normal range of motion. Results CBC & Chem 7: 01/31/23 04:01 01/31/23 04:01 Labs: Abnormal Lab Results - Last 24 Hours (Table) 01/31/23 01/31/23 01/31/23 Range/Units 04:01 04:01 04:01 RBC 1.82 L (3.80-5.40) m/uL Hgb 7.8 L (11.4-16.0) gm/dL Hct 22.1 L (34.0-46.0) % MCV 121.8 H (80.0-100.0) fL MCH 42.9 H (25.0-35.0) pg RDW 18.3 H (11.5-15.5) % Plt Count 27 L (150-450) k/uL Lymphocytes # 0.7 L (1.0-4.8) k/uL Macrocytosis Marked A PT (10.0-12.5) sec INR (<1.2) APTT (22.0-30.0) sec Sodium 131 L (137-145) mmol/L Potassium 3.2 L (3.5-5.1) mmol/L Chloride 97 L (98-107) mmol/L Glucose 110 H (74-99) mg/dL Plasma Lactic Acid Heladio 2.9 H* (0.7-2.0) mmol/L Calcium 8.2 L (8.4-10.2) mg/dL Total Bilirubin 20.5 H* (0.2-1.3) mg/dL AST 57 H (14-36) U/L ALT 35 H (4-34) U/L Alkaline Phosphatase 144 H (38-126) U/L Albumin 2.7 L (3.5-5.0) g/dL 01/31/23 Range/Units 04:01 RBC (3.80-5.40) m/uL Hgb (11.4-16.0) gm/dL Hct (34.0-46.0) % MCV (80.0-100.0) fL MCH (25.0-35.0) pg RDW (11.5-15.5) % Plt Count (150-450) k/uL Lymphocytes # (1.0-4.8) k/uL Macrocytosis PT 23.6 H (10.0-12.5) sec INR 2.4 H (<1.2) APTT 35.8 H (22.0-30.0) sec Sodium (137-145) mmol/L Potassium (3.5-5.1) mmol/L Chloride (98-107) mmol/L Glucose (74-99) mg/dL Plasma Lactic Acid Heladio (0.7-2.0) mmol/L Calcium (8.4-10.2) mg/dL Total Bilirubin (0.2-1.3) mg/dL AST (14-36) U/L ALT (4-34) U/L Alkaline Phosphatase (38-126) U/L Albumin (3.5-5.0) g/dL Thrombosis Risk Factor Assmnt - DVT/VTE Prophylaxis DVT/VTE Prophylaxis: Low risk, early ambulation encouraged - Choose All That Apply Each Factor Represents 1 point: Age 41-60 years, Obesity (BMI >25) Other Risk Factors: No Other congenital or acquired thrombophilia - If yes, enter type in comment: No Thrombosis Risk Factor Assessment Total Risk Factor Score: 2 Thrombosis Risk Factor Assessment Level: Low Risk Assessment and Plan Assessment: Ascites due to alcoholic liver cirrhosis. Prior paracentesis on 12/28/2022 Hypokalemia Hypervolemic hyponatremia Anemia with macrocytosis due to alcohol liver disease. B12 and folate within normal limits during prior admission. Coagulopathy due to liver disease. Elevated liver enzymes Asthma not in exacerbation Anxiety/depression bipolar disorder Current everyday smoker and marijuana use History of seizure disorder DVT prophylaxis patient is already auto anticoagulated. Plan: Patient will be continued on Lasix and spironolactone. Patient is also on midodrine at home, which will be continued. Replace potassium. Ultrasound-guided paracentesis was ordered. Continue with GI prophylaxis. Follow-up closely. Time with Patient: Greater than 30
[2023-02-01 04:44] LABS: African American GFR (CKD) >90 (>60 ml/min/1.73 sqM); Anion Gap 9 mmol/L; Blood Urea Nitrogen 10 mg/dL (7-17); Carbon Dioxide 23 mmol/L (22-30); Chloride 99 mmol/L (98-107); Glucose 98 mg/dL (74-99); Magnesium 1.8 mg/dL (1.6-2.3); Non-African American GFR(CKD) >90 (>60 ml/min/1.73 sqM); Potassium 3.2 mmol/L (3.5-5.1); Sodium 131 mmol/L (137-145)
[2023-02-01 04:51] LABS: Anisocytosis Slight; Basophils % (A) 0 %; Eosinophils # (A) 0.2 k/uL (0-0.7); Eosinophils % (A) 3 %; Hypochromasia Moderate; Lymphocytes # (A) 0.8 k/uL (1.0-4.8); Lymphocytes % (A) 11 %; MCV 123.2 fL (80.0-100.0); Macrocytosis Marked; Mean Platelet Volume 8.8; Monocytes # (A) 0.5 k/uL (0-1.0); Monocytes % (A) 7 %; Neutrophils # (A) 5.7 k/uL (1.3-7.7); Neutrophils % (A) 76 %; Platelet Count 27 k/uL (150-450); Poikilocytosis Moderate; RBC 1.57 m/uL (3.80-5.40); WBC 7.5 k/uL (3.8-10.6)
[2023-02-01 04:52] LABS: HCT 19.3 % (34.0-46.0); HGB 6.9 gm/dL (11.4-16.0); MCH 44.3 pg (25.0-35.0)
[2023-02-01 05:40] LABS: INR 2.6 (<1.2); Prothrombin Time 25.5 sec (10.0-12.5)
[2023-02-01] MEDS: MIDODRINE 5 MG TAB PO SCH ×3 (06:17→16:29)
[2023-02-01] MEDS: FLUoxetine HCL 20 MG CAP PO SCH (08:15)
[2023-02-01] MEDS: LACTULOSE 20 GM/30 ML CUP PO SCH ×3 (08:15→21:04)
[2023-02-01] MEDS: levETIRAcetam 500 MG TAB PO SCH ×2 (08:16→21:04)
[2023-02-01] MEDS: POTASSIUM CHLORIDE ER 10 MEQ TAB.ER.PRT PO SCH (08:16)
[2023-02-01] MEDS: THIAMINE 100 MG TAB PO SCH (08:16)
[2023-02-01] MEDS: SODIUM CHLORIDE 0.9% 1,000 ML IV SCH (08:18)
[2023-02-01] MEDS ORDERED: NON FORMULARY DRUG (Ubidecarenone [Coenzyme Q10] 50 MG Capsule) PO SCH (09:00)
[2023-02-01] MEDS ORDERED: Potassium Replacement Protocol 1 EACH MISC MISCELLANE PRN (10:32)
[2023-02-01] MEDS: FUROSEMIDE 20 MG TAB PO SCH (13:43)
[2023-02-01] MEDS: SPIRONOLACTONE 25 MG TAB PO SCH (13:43)
[2023-02-01] MEDS: MAGNESIUM SULFATE-D5W PMX 1 GM in DEXTROSE/WATER 1 100ML.BAG IVPB SCH ×2 (13:44→16:29)
[2023-02-01] MEDS: PHYTONADIONE ORAL 5 MG/5 ML ORAL.SYRG PO SCH (13:44)
[2023-02-02] MEDS: MIDODRINE 5 MG TAB PO SCH ×3 (05:54→17:07)
[2023-02-02] MEDS: SODIUM CHLORIDE 0.9% 1,000 ML IV SCH (09:07)
[2023-02-02] MEDS: LACTULOSE 20 GM/30 ML CUP PO SCH ×3 (09:15→22:45)
[2023-02-02] MEDS: FLUoxetine HCL 20 MG CAP PO SCH (09:15)
[2023-02-02] MEDS: SPIRONOLACTONE 25 MG TAB PO SCH (09:15)
[2023-02-02] MEDS: PHYTONADIONE ORAL 5 MG/5 ML ORAL.SYRG PO SCH (09:15)
[2023-02-02] MEDS: FUROSEMIDE 20 MG TAB PO SCH (09:16)
[2023-02-02] MEDS: THIAMINE 100 MG TAB PO SCH (09:16)
[2023-02-02] MEDS: levETIRAcetam 500 MG TAB PO SCH ×2 (09:16→21:38)
--- NOTE | 2023-02-02 11:14 | US ---
EXAMINATION TYPE: US abdomen limited DATE OF EXAM: 02/02/2023 Exam done portable COMPARISON: NONE CLINICAL INDICATION: Female, 52 years old with history of ascites; Abdominal ascites IMPRESSION: Moderate ascites
[2023-02-02] MEDS: POTASSIUM CHLORIDE ER 10 MEQ TAB.ER.PRT PO SCH (11:35)
[2023-02-02 11:47] LABS: Anisocytosis Moderate; Basophils % (A) 0 %; Eosinophils # (A) 0.2 k/uL (0-0.7); Eosinophils % (A) 3 %; HCT 23.6 % (34.0-46.0); HGB 8.3 gm/dL (11.4-16.0); Hypochromasia Slight; Lymphocytes # (A) 0.9 k/uL (1.0-4.8); Lymphocytes % (A) 10 %; MCH 40.7 pg (25.0-35.0); MCHC 35.2 g/dL (31.0-37.0); Macrocytosis Marked; Mean Platelet Volume 9.2; Monocytes # (A) 0.6 k/uL (0-1.0); Monocytes % (A) 7 %; Neutrophils # (A) 6.9 k/uL (1.3-7.7); Neutrophils % (A) 77 %; Poikilocytosis Marked; RBC 2.04 m/uL (3.80-5.40); RDW 22.8 % (11.5-15.5)
[2023-02-02 11:57] LABS: MCV 115.6 fL (80.0-100.0); Platelet Count 25 k/uL (150-450)
[2023-02-02 11:58] LABS: African American GFR (CKD) >90 (>60 ml/min/1.73 sqM); Anion Gap 11 mmol/L; Blood Urea Nitrogen 9 mg/dL (7-17); Carbon Dioxide 22 mmol/L (22-30); Chloride 99 mmol/L (98-107); Glucose 148 mg/dL (74-99); Magnesium 1.9 mg/dL (1.6-2.3); Non-African American GFR(CKD) 89 (>60 ml/min/1.73 sqM); Sodium 132 mmol/L (137-145)
[2023-02-02] MEDS ORDERED: Potassium Replacement Protocol 1 EACH MISC MISCELLANE PRN (12:08)
[2023-02-02] MEDS: POTASSIUM CHLORIDE ER 20 MEQ TAB.ER PO SCH ×5 (12:47→17:07)
[2023-02-02 15:01] LABS: INR 2.3 (<1.2); Prothrombin Time 23.3 sec (10.0-12.5)
--- NOTE | 2023-02-03 00:19 | P.PN ---
Subjective Progress Note Date: 02/01/23 Patient is a 52-year-old female with a known history of alcoholic liver cirrhosis with prior history of paracentesis on 12/28/2022, history of alcohol abuse, asthma, anxiety/depression bipolar disorder and currently everyday smoker and marijuana use presents to the hospital with complaints of dizziness and abdominal bloating. There is also complaining of mild abdominal pain in the lower abdominal region on admission. She is also complaining of dyspnea with exertion and leg swelling. Denies any fever or chills. No cough or sputum production. No complaints of chest pain. Patient is also complaining of room spinning on admission. EKG showed sinus tachycardia with occasional supraventricular premature complexes. On admission patient was tachycardic with heart rate 105, blood pressure 119/59 pulse ox 100% on room air. Laboratory data showed WBC 7.9 hemoglobin 7.8 MCV 121.8 and platelets 27 INR 2.4 Sodium 131 potassium 3.2, chloride 97, blood sugar 110 lactic acid 2.9 on admission Total bilirubin level is 20.5, AST 57 ALT 35 alk phos 144 troponin 0.024 and albumin 2.7 Ammonia less than 9 02/01/2023 Patient is lying in the bed. Awake alert and is confused at baseline. No complaints of chest pain. Abdominal still distended. No worsening pain. No cough or sputum production. Patient is currently on room air. Patient has been afebrile. Laboratory pressure WBC 7.5 hemoglobin 6.9 and platelets 27. Receiving 1 unit of PRBC today. Sodium 131 potassium 3.2 chloride 99 bicarb is 23 BUN 10 and creatinine 0.76 and magnesium 1.8. Patient is scheduled for paracentesis tomorrow. Current medications reviewed.. Objective - Vital Signs Vital signs: Vital Signs Temp 97.9 F 02/01/23 10:31 Pulse 107 H 02/01/23 10:31 Resp 16 02/01/23 10:31 BP 105/70 02/01/23 10:31 Pulse Ox 90 L 02/01/23 10:31 FiO2 Intake & Output 01/31/23 02/01/23 02/01/23 19:59 06:59 18:59 Intake Total 0 Balance 0 Weight Intake: Blood Product 0 Unit 0 Other: Voiding Method Toilet # Voids - Exam PHYSICAL EXAMINATION: Patient is lying in the bed comfortably, no acute distress, awake alert and oriented.. HEENT: Normocephalic. Neck is supple. Pupils reactive. Nostrils clear. Oral cavity is moist. Icteric. Neck reveals no JVD, carotid bruits, or thyromegaly. CHEST EXAMINATION: Trachea is central. Symmetrical expansion. Bibasilar diminished sounds.. CARDIAC: Normal S1, S2 with no gallops. No murmurs ABDOMEN: Soft. Bowel sounds present. Nontender. Distended with ascites and fluid thrill. No organomegaly could not be appreciated.. No abdominal bruits. Extremities: Bilateral lower extremity trace edema. No clubbing or cyanosis Neurologically awake, alert, oriented x3 with well-coordinated movements. No gross focal deficits noted Skin: No rash or skin lesions. Psychiatric: Coperative. Nonsuicidal, Musculoskeletal: No joint swelling or deformity. Normal range of motion. - Labs CBC & Chem 7: 02/02/23 11:12 02/02/23 19:16 Labs: Abnormal Lab Results - Last 24 Hours (Table) 02/01/23 02/01/23 02/01/23 Range/Units 03:42 03:48 03:48 RBC 1.57 L (3.80-5.40) m/uL Hgb 6.9 L* (11.4-16.0) gm/dL Hct 19.3 L* (34.0-46.0) % MCV 123.2 H (80.0-100.0) fL MCH 44.3 H (25.0-35.0) pg RDW 17.0 H (11.5-15.5) % Plt Count 27 L (150-450) k/uL Lymphocytes # 0.8 L (1.0-4.8) k/uL Macrocytosis Marked A PT 25.5 H (10.0-12.5) sec INR 2.6 H (<1.2) Sodium 131 L (137-145) mmol/L Potassium 3.2 L (3.5-5.1) mmol/L Calcium 8.0 L (8.4-10.2) mg/dL Crossmatch 02/01/23 Range/Units 05:35 RBC (3.80-5.40) m/uL Hgb (11.4-16.0) gm/dL Hct (34.0-46.0) % MCV (80.0-100.0) fL MCH (25.0-35.0) pg RDW (11.5-15.5) % Plt Count (150-450) k/uL Lymphocytes # (1.0-4.8) k/uL Macrocytosis PT (10.0-12.5) sec INR (<1.2) Sodium (137-145) mmol/L Potassium (3.5-5.1) mmol/L Calcium (8.4-10.2) mg/dL Crossmatch See Detail Assessment and Plan Assessment: Ascites due to alcoholic liver cirrhosis. Prior paracentesis on 12/28/2022 Hypokalemia Hypervolemic hyponatremia Anemia with macrocytosis due to alcohol liver disease. B12 and folate within normal limits during prior admission. Coagulopathy due to liver disease. Elevated liver enzymes Asthma not in exacerbation Anxiety/depression bipolar disorder Current everyday smoker and marijuana use History of seizure disorder DVT prophylaxis patient is already auto anticoagulated. Plan: Patient will be continued on Lasix and spironolactone. Patient is also on midodrine at home, which will be continued. Replace potassium. Ultrasound-guided paracentesis was ordered. Continue with GI prophylaxis. Follow-up closely. Time with Patient: Greater than 30
--- NOTE | 2023-02-03 06:12 | P.PN ---
Subjective Progress Note Date: 02/02/23 Patient is a 52-year-old female with a known history of alcoholic liver cirrhosis with prior history of paracentesis on 12/28/2022, history of alcohol abuse, asthma, anxiety/depression bipolar disorder and currently everyday smoker and marijuana use presents to the hospital with complaints of dizziness and abdominal bloating. There is also complaining of mild abdominal pain in the lower abdominal region on admission. She is also complaining of dyspnea with exertion and leg swelling. Denies any fever or chills. No cough or sputum production. No complaints of chest pain. Patient is also complaining of room spinning on admission. EKG showed sinus tachycardia with occasional supraventricular premature complexes. On admission patient was tachycardic with heart rate 105, blood pressure 119/59 pulse ox 100% on room air. Laboratory data showed WBC 7.9 hemoglobin 7.8 MCV 121.8 and platelets 27 INR 2.4 Sodium 131 potassium 3.2, chloride 97, blood sugar 110 lactic acid 2.9 on admission Total bilirubin level is 20.5, AST 57 ALT 35 alk phos 144 troponin 0.024 and albumin 2.7 Ammonia less than 9 02/01/2023 Patient is lying in the bed. Awake alert and is confused at baseline. No complaints of chest pain. Abdominal still distended. No worsening pain. No cough or sputum production. Patient is currently on room air. Patient has been afebrile. Laboratory pressure WBC 7.5 hemoglobin 6.9 and platelets 27. Receiving 1 unit of PRBC today. Sodium 131 potassium 3.2 chloride 99 bicarb is 23 BUN 10 and creatinine 0.76 and magnesium 1.8. Patient is scheduled for paracentesis tomorrow. 02/02/2023 Patient is seen and evaluated in follow-up this morning has interventional radiology consulted and recommended an INR be less than 2 and platelets be above 50. Will order platelets to transfuse with paracentesis and will follow-up on repeat INR. Patient is maintained on vitamin K 5 mg daily Will admit additional dose and follow-up with repeat INR in the morning. Patient has no specific co mplaints and is reporting would like to go home. Patient reports she lives with her parents. Patient is currently afebrile with no reported chest pain or shortness of breath. Patient continues to have abdominal bloating and distention and ultrasound showing ascites. Review of systems: Constitutional: No reports of fatigue, fever, or chills Cardiovascular: No reports of chest pain or palpitations Respiratory: No reports of shortness of breath or cough GI: No reports of nausea, vomiting, or diarrhea, reports of abdominal bloating and distention : No reports of dysuria or retention Neurovascular: No reports of weakness or numbness All medications have been reviewed Physical exam: Patient is lying in the bed comfortably, no acute distress, awake alert and oriented.. HEENT: Normocephalic. Neck is supple. Pupils reactive. Nostrils clear. Oral cavity is moist. Icteric. Neck reveals no JVD, carotid bruits, or thyromegaly. CHEST EXAMINATION: Trachea is central. Symmetrical expansion. Bibasilar diminished sounds.. CARDIAC: Normal S1, S2 with no gallops. No murmurs ABDOMEN: Soft. Bowel sounds present. Nontender. Distended with ascites and fluid thrill. No organomegaly could not be appreciated.. No abdominal bruits. Extremities: Bilateral lower extremity trace edema. No clubbing or cyanosis Neurologically awake, alert, oriented x3 with well-coordinated movements. No gr oss focal deficits noted Skin: No rash or skin lesions. Extremely jaundice Psychiatric: Coperative. Nonsuicidal, Musculoskeletal: No joint swelling or deformity. Normal range of motion. Assessment: Ascites due to alcoholic liver cirrhosis. Prior paracentesis on 12/28/2022 Hypokalemia Hypervolemic hyponatremia Anemia with macrocytosis due to alcohol liver disease. B12 and folate within normal limits during prior admission. Coagulopathy due to liver disease. Elevated liver enzymes Asthma not in exacerbation Anxiety/depression bipolar disorder Current everyday smoker and marijuana use History of seizure disorder DVT prophylaxis patient is already auto anticoagulated. Plan: Patient will be continued on Lasix and spironolactone. Patient is also on midodrine at home, which will be continued. Electrolytes being replaced per protocol and patient is status post 1 unit of PRBC Interventional radiology consulted for paracentesis and recommending INR 2 or less and platelets above 50. Will order platelet transfusion to be done during paracentesis and will follow-up on repeat INR in the a.m. and give another dose of vitamin K as INR is 2.3 Encouraged increased activity as tolerated Consider discharge planning post paracentesis The impression and plan of care has been dictated by Domi Goncalves, Nurse Practitioner as directed. Dr. Alysha MD I have performed a history and examination and MDM of this patient, discussed the same with the dictator, and agree with the dictator's assessment and plan as written ,documented as a scribe. Based on total visit time, I have performed more than 50% of the visit. Objective - Vital Signs Vital signs: Vital Signs Temp 98.1 F 02/02/23 07:00 Pulse 104 H 02/02/23 09:15 Resp 16 02/02/23 07:00 BP 111/60 02/02/23 07:00 Pulse Ox 99 02/02/23 07:00 FiO2 Intake & Output 02/01/23 02/02/23 02/02/23 18:59 06:59 18:59 Intake Total 310 118 Balance 310 118 Intake: Oral 118 Blood Product 310 Rc As-1 Unit 310 [id number] Other: Voiding Method Toilet Toilet Toilet # Voids 1 2 # Bowel Movements 1 - Labs CBC & Chem 7: 02/02/23 11:12 02/02/23 19:16 Labs: Abnormal Lab Results - Last 24 Hours (Table) 02/02/23 02/02/23 Range/Units 11:12 11:12 RBC 2.04 L (3.80-5.40) m/uL Hgb 8.3 L (11.4-16.0) gm/dL Hct 23.6 L (34.0-46.0) % MCV 115.6 H D (80.0-100.0) fL MCH 40.7 H (25.0-35.0) pg RDW 22.8 H (11.5-15.5) % Plt Count 25 L (150-450) k/uL Lymphocytes # 0.9 L (1.0-4.8) k/uL Macrocytosis Marked A Sodium 132 L (137-145) mmol/L Potassium 3.0 L (3.5-5.1) mmol/L Glucose 148 H (74-99) mg/dL Calcium 8.0 L (8.4-10.2) mg/dL
[2023-02-03] MEDS ORDERED: PHYTONADIONE ORAL 5 MG/5 ML ORAL.SYRG PO ONE (06:15)
[2023-02-03] MEDS: MIDODRINE 5 MG TAB PO SCH ×3 (06:28→17:08)
[2023-02-03 07:46] LABS: INR 2.4 (<1.2); Prothrombin Time 24.2 sec (10.0-12.5)
[2023-02-03] MEDS ORDERED: PHYTONADIONE 10 MG in SODIUM CHLORIDE 0.9% 50 ML IVPB STA (09:29)
[2023-02-03 11:32] LABS: Acanthocytes 2+; Anisocytosis (M) 3+; Basophils # (A) 0.05 X 10*3/uL (0.00-0.10); Basophils % (A) 0.6 %; Blood Urea Nitrogen 7.2 mg/dL (9.0-27.0); Calcium 8.3 mg/dL (8.7-10.3); Carbon Dioxide 22.5 mmol/L (21.6-31.8); Chloride 100 mmol/L (96-109); Eosinophils # (A) 0.39 X 10*3/uL (0.04-0.35); Eosinophils % (A) 4.8 %; Glucose 89 mg/dL (70-110); HCT 22.5 % (37.2-46.3); HGB 7.5 d/dL (12.0-15.0); Immature Platelet Fraction 6.4 % (1.1-6.1); Lymphocytes # (A) 0.95 X 10*3/uL (0.90-5.00); Lymphocytes % (A) 11.6 %; MCH 39.9 pg (27.0-32.0); MCHC 33.3 d/dL (32.0-37.0); MCV 119.7 FL (80.0-97.0); Macrocytosis (M) 3+; Mean Platelet Volume 10.5 FL (9.5-12.2); Monocytes # (A) 0.76 X 10*3/uL (0.20-1.00); Monocytes % (A) 9.3 %; NRBC Per 100 WBC 0.05 X 10*3/uL (0.00-0.01); Neutrophils # (A) 5.89 X 10*3/uL (1.80-7.70); Neutrophils % (A) 71.6 %; Platelet Count 20 X 10*3/uL (140-440); Polychromasia 2+; Potassium 4.1 mmol/L (3.5-5.5); RBC 1.88 X 10*6/uL (4.10-5.20); Sodium 132 mmol/L (135-145); WBC 8.21 X 10*3/uL (4.50-10.00)
[2023-02-03] MEDS: SPIRONOLACTONE 25 MG TAB PO SCH (11:42)
[2023-02-03] MEDS: levETIRAcetam 500 MG TAB PO SCH ×2 (11:42→20:04)
[2023-02-03] MEDS: FUROSEMIDE 20 MG TAB PO SCH (11:43)
[2023-02-03] MEDS: POTASSIUM CHLORIDE ER 10 MEQ TAB.ER.PRT PO SCH (11:43)
[2023-02-03] MEDS: FLUoxetine HCL 20 MG CAP PO SCH (11:43)
[2023-02-03] MEDS: LACTULOSE 20 GM/30 ML CUP PO SCH ×3 (11:43→20:04)
[2023-02-03] MEDS: THIAMINE 100 MG TAB PO SCH (11:43)
[2023-02-03] MEDS: PHYTONADIONE ORAL 5 MG/5 ML ORAL.SYRG PO SCH (13:05)
[2023-02-03 17:42] LABS: INR 2.5 (<1.2); Prothrombin Time 24.8 sec (10.0-12.5)
[2023-02-03] MEDS: IBUPROFEN 400 MG TAB PO PRN (23:01)
--- NOTE | 2023-02-04 06:09 | P.PN ---
Subjective Progress Note Date: 02/03/23 Patient is a 52-year-old female with a known history of alcoholic liver cirrhosis with prior history of paracentesis on 12/28/2022, history of alcohol abuse, asthma, anxiety/depression bipolar disorder and currently everyday smoker and marijuana use presents to the hospital with complaints of dizziness and abdominal bloating. There is also complaining of mild abdominal pain in the lower abdominal region on admission. She is also complaining of dyspnea with exertion and leg swelling. Denies any fever or chills. No cough or sputum production. No complaints of chest pain. Patient is also complaining of room spinning on admission. EKG showed sinus tachycardia with occasional supraventricular premature complexes. On admission patient was tachycardic with heart rate 105, blood pressure 119/59 pulse ox 100% on room air. Laboratory data showed WBC 7.9 hemoglobin 7.8 MCV 121.8 and platelets 27 INR 2.4 Sodium 131 potassium 3.2, chloride 97, blood sugar 110 lactic acid 2.9 on admission Total bilirubin level is 20.5, AST 57 ALT 35 alk phos 144 troponin 0.024 and albumin 2.7 Ammonia less than 9 02/01/2023 Patient is lying in the bed. Awake alert and is confused at baseline. No complaints of chest pain. Abdominal still distended. No worsening pain. No cough or sputum production. Patient is currently on room air. Patient has been afebrile. Laboratory pressure WBC 7.5 hemoglobin 6.9 and platelets 27. Receiving 1 unit of PRBC today. Sodium 131 potassium 3.2 chloride 99 bicarb is 23 BUN 10 and creatinine 0.76 and magnesium 1.8. Patient is scheduled for paracentesis tomorrow. 02/02/2023 Patient is seen and evaluated in follow-up this morning has interventional radiology consulted and recommended an INR be less than 2 and platelets be above 50. Will order platelets to transfuse with paracentesis and will follow-up on repeat INR. Patient is maintained on vitamin K 5 mg daily Will admit additional dose and follow-up with repeat INR in the morning. Patient has no specific co mplaints and is reporting would like to go home. Patient reports she lives with her parents. Patient is currently afebrile with no reported chest pain or shortness of breath. Patient continues to have abdominal bloating and distention and ultrasound showing ascites. 02/03/2023 Patient is seen and evaluated in follow-up today and INR remains elevated at 2.5 will give another dose of vitamin K PIV follow-up with repeat labs this afternoon as well as tomorrow. Interventional radiology will not perform paracentesis until INR is 2 or less and platelets are improved. Plan is for platelets during paracentesis. Patient denies any chest pain or shortness of breath. Patient is afebrile and hemoglobin is stable currently above 7 and will follow-up with repeat labs. Review of systems: Constitutional: No reports of fatigue, fever, or chills Cardiovascular: No reports of chest pain or palpitations Respiratory: No reports of shortness of breath or cough GI: No reports of nausea, vomiting, or diarrhea, reports of abdominal bloating and distention : No reports of dysuria or retention Neurovascular: No reports of weakness or numbness All medications have been reviewed Physical exam: Patient is lying in the bed comfortably, no acute distress, awake alert and oriented.. HEENT: Normocephalic. Neck is supple. Pupils reactive. Nostrils clear. Oral cavity is moist. Icteric. Neck reveals no JVD, carotid bruits, or thyromegaly. CHEST EXAMINATION: Trachea is central. Symmetrical expansion. Bibasilar diminished sounds.. CARDIAC: Normal S1, S2 with no gallops. No murmurs ABDOMEN: Soft. Bowel sounds present. Nontender. Distended with ascites and fluid thrill. No organomegaly could not be appreciated.. No abdominal bruits. Extremities: Bilateral lower extremity trace edema. No clubbing or cyanosis Neurologically awake, alert, oriented x3 with well-coordinated movements. No gross focal deficits noted Skin: No rash or skin lesions. Extremely jaundice Psychiatric: Cooperative. Non-suicidal Musculoskeletal: No joint swelling or deformity. Normal range of motion. Assessment: Ascites due to alcoholic liver cirrhosis. Prior paracentesis on 12/28/2022 Hypokalemia Hypervolemic hyponatremia Anemia with macrocytosis due to alcohol liver disease. B12 and folate within n ormal limits during prior admission. Coagulopathy due to liver disease. Elevated liver enzymes Asthma not in exacerbation Anxiety/depression bipolar disorder Current everyday smoker and marijuana use History of seizure disorder DVT prophylaxis patient is already auto anticoagulated. Plan: Patient will be continued on Lasix and spironolactone. Patient is also on midodrine at home, which will be continued. Electrolytes being replaced per protocol and patient is status post 1 unit of PRBC . hemoglobin is above 7 and will follow-up with repeat labs and transfuse 7 or less Interventional radiology following for paracentesis and recommending INR 2 or less and platelets above 50. Will order platelet transfusion to be done during paracentesis and will follow-up on repeat INR in the a.m. and give another dose of vitamin K as INR remains elevated at 2.5 Encouraged increased activity as tolerated Consider discharge planning post paracentesis The impression and plan of care has been dictated by Domi Goncalves, Nurse Practitioner as directed. Dr. Alysha MD I have performed a history and examination and MDM of this patient, discussed the same with the dictator, and agree with the dictator's assessment and plan as written ,documented as a scribe. Based on total visit time, I have performed more than 50% of the visit. Objective - Vital Signs Vital signs: Vital Signs Temp 98.1 F 02/03/23 02:00 Pulse 112 H 02/03/23 02:00 Resp 16 02/03/23 02:00 BP 96/54 02/03/23 02:00 Pulse Ox 96 02/03/23 02:00 FiO2 Intake & Output 02/02/23 02/02/23 02/03/23 06:59 18:59 06:59 Intake Total 879 Balance 879 Intake: Oral 879 Other: Voiding Method Toilet Toilet Toilet # Voids 2 1 - Labs CBC & Chem 7: 02/03/23 06:42 02/03/23 06:42 Labs: Abnormal Lab Results - Last 24 Hours (Table) 02/02/23 02/02/23 02/02/23 Range/Units 11:12 11:12 14:12 RBC 2.04 L (3.80-5.40) m/uL Hgb 8.3 L (11.4-16.0) gm/dL Hct 23.6 L (34.0-46.0) % MCV 115.6 H D (80.0-100.0) fL MCH 40.7 H (25.0-35.0) pg RDW 22.8 H (11.5-15.5) % Plt Count 25 L (150-450) k/uL Lymphocytes # 0.9 L (1.0-4.8) k/uL Macrocytosis Marked A PT 23.3 H (10.0-12.5) sec INR 2.3 H (<1.2) Sodium 132 L (137-145) mmol/L Potassium 3.0 L (3.5-5.1) mmol/L Glucose 148 H (74-99) mg/dL Calcium 8.0 L (8.4-10.2) mg/dL
[2023-02-04] MEDS: PHYTONADIONE 10 MG in SODIUM CHLORIDE 0.9% 50 ML IVPB ONE ×2 (06:17→11:40)
[2023-02-04] MEDS: MIDODRINE 5 MG TAB PO SCH ×3 (06:17→18:24)
[2023-02-04] MEDS: OXYMETAZOLINE 0.05% NASL SPRAY 1 SPRAY BOTTLE NASAL PRN (07:04)
[2023-02-04] MEDS: LACTULOSE 20 GM/30 ML CUP PO SCH ×3 (09:01→20:45)
[2023-02-04] MEDS: levETIRAcetam 500 MG TAB PO SCH ×2 (09:01→20:45)
[2023-02-04] MEDS: SPIRONOLACTONE 25 MG TAB PO SCH (09:01)
[2023-02-04] MEDS: POTASSIUM CHLORIDE ER 10 MEQ TAB.ER.PRT PO SCH (09:02)
[2023-02-04] MEDS: FUROSEMIDE 20 MG TAB PO SCH (09:02)
[2023-02-04] MEDS: THIAMINE 100 MG TAB PO SCH (09:02)
[2023-02-04] MEDS: FLUoxetine HCL 20 MG CAP PO SCH (09:02)
[2023-02-04 10:13] LABS: Anisocytosis Moderate; HCT 24.3 % (34.0-46.0); HGB 8.3 gm/dL (11.4-16.0); Hypochromasia Moderate; MCH 40.6 pg (25.0-35.0); MCHC 34.2 g/dL (31.0-37.0); MCV 118.7 fL (80.0-100.0); Macrocytosis Marked; Mean Platelet Volume 10.6; Poikilocytosis Moderate; RBC 2.05 m/uL (3.80-5.40); RDW 22.7 % (11.5-15.5); WBC 8.2 k/uL (3.8-10.6)
[2023-02-04 10:14] LABS: Platelet Count 22 k/uL (150-450)
[2023-02-04 10:16] LABS: INR 2.5 (<1.2)
[2023-02-04 20:37] LABS: INR 2.4 (<1.2)
--- NOTE | 2023-02-05 05:33 | P.PN ---
Subjective Progress Note Date: 02/04/23 Patient is a 52-year-old female with a known history of alcoholic liver cirrhosis with prior history of paracentesis on 12/28/2022, history of alcohol abuse, asthma, anxiety/depression bipolar disorder and currently everyday smoker and marijuana use presents to the hospital with complaints of dizziness and abdominal bloating. There is also complaining of mild abdominal pain in the lower abdominal region on admission. She is also complaining of dyspnea with exertion and leg swelling. Denies any fever or chills. No cough or sputum production. No complaints of chest pain. Patient is also complaining of room spinning on admission. EKG showed sinus tachycardia with occasional supraventricular premature complexes. On admission patient was tachycardic with heart rate 105, blood pressure 119/59 pulse ox 100% on room air. Laboratory data showed WBC 7.9 hemoglobin 7.8 MCV 121.8 and platelets 27 INR 2.4 Sodium 131 potassium 3.2, chloride 97, blood sugar 110 lactic acid 2.9 on admission Total bilirubin level is 20.5, AST 57 ALT 35 alk phos 144 troponin 0.024 and albumin 2.7 Ammonia less than 9 02/01/2023 Patient is lying in the bed. Awake alert and is confused at baseline. No complaints of chest pain. Abdominal still distended. No worsening pain. No cough or sputum production. Patient is currently on room air. Patient has been afebrile. Laboratory pressure WBC 7.5 hemoglobin 6.9 and platelets 27. Receiving 1 unit of PRBC today. Sodium 131 potassium 3.2 chloride 99 bicarb is 23 BUN 10 and creatinine 0.76 and magnesium 1.8. Patient is scheduled for paracentesis tomorrow. 02/02/2023 Patient is seen and evaluated in follow-up this morning has interventional radiology consulted and recommended an INR be less than 2 and platelets be above 50. Will order platelets to transfuse with paracentesis and will follow-up on repeat INR. Patient is maintained on vitamin K 5 mg daily Will admit additional dose and follow-up with repeat INR in the morning. Patient has no specific co mplaints and is reporting would like to go home. Patient reports she lives with her parents. Patient is currently afebrile with no reported chest pain or shortness of breath. Patient continues to have abdominal bloating and distention and ultrasound showing ascites. 02/03/2023 Patient is seen and evaluated in follow-up today and INR remains elevated at 2.5 will give another dose of vitamin K PIV follow-up with repeat labs this afternoon as well as tomorrow. Interventional radiology will not perform paracentesis until INR is 2 or less and platelets are improved. Plan is for platelets during paracentesis. Patient denies any chest pain or shortness of breath. Patient is afebrile and hemoglobin is stable currently above 7 and will follow-up with repeat labs. 02/04/2023 Patient is seen and evaluated in follow-up continues to have elevated INR of 2.4 and per nursing staff has no IV access and multiple attempts including anesthesia to evaluate for IV and patient is difficult IV access will obtain a midline. Patient did have an episode of bloody nose and hemoglobin is above 8, platelets are 20. Will give another dose of IV vitamin K and follow-up with repeat labs. Interventional radiology following for paracentesis that is much needed. Patient continues to have abdominal distention and bloated feeling Review of systems: Constitutional: No reports of fatigue, fever, or chills Cardiovascular: No reports of chest pain or palpitations Respiratory: No reports of shortness of breath or cough GI: No reports of nausea, vomiting, or diarrhea, reports of increased abdominal bloating and distention : No reports of dysuria or retention Neurovascular: No reports of weakness or numbness All medications have been reviewed Physical exam: Patient is lying in the bed comfortably, no acute distress, awake alert and oriented.. HEENT: Normocephalic. Neck is supple. Pupils reactive. Nostrils clear. Oral cavity is moist. Icteric. Neck reveals no JVD, carotid bruits, or thyromegaly. CHEST EXAMINATION: Trachea is central. Symmetrical expansion. Bibasilar diminished sounds.. CARDIAC: Normal S1, S2 with no gallops. No murmurs ABDOMEN: Soft. Bowel sounds present. Nontender. Distended with ascites and fluid thrill. No organomegaly could not be appreciated.. No abdominal bruits. Extremities: Bilateral lower extremity trace edema. No clubbing or cyanosis Neurologically awake, alert, oriented x3 with well-coordinated movements. No gross focal deficits noted Skin: No rash or skin lesions. Extremely jaundice Psychiatric: Cooperative. Non-suicidal Musculoskeletal: No joint swelling or deformity. Normal range of motion. Assessment: Ascites due to alcoholic liver cirrhosis. Prior paracentesis on 12/28/2022 Hypokalemia, improved Hypervolemic hyponatremia Anemia with macrocytosis due to alcohol liver disease. B12 and folate within normal limits during prior admission. Coagulopathy due to liver disease. Elevated liver enzymes Asthma not in exacerbation Anxiety/depression bipolar disorder Current everyday smoker and marijuana use History of seizure disorder DVT prophylaxis patient is already auto anticoagulated. Plan: Patient will be continued on Lasix and spironolactone. Patient is also on midodrine at home, which will be continued. Electrolytes being replaced per protocol and patient is status post 1 unit of PRBC this admission . Patient had a bloody nose per nursing staff and hemoglobin is above 8. Plainhas resolved. Platelets are 20 today and INR remains elevated at 2.4 and will give another dose of IV vitamin K as interventional radiology will not perform paracentesis unless INR is 2 or less Patient lost IV access and a difficult stick with multiple attempts awaiting a midline Interventional radiology following for paracentesis and recommending INR 2 or less and platelets above 50. Platelets have been ordered for transfusion to be done during paracentesis and will follow-up on repeat INR in the a.m. and give another dose of vitamin K Encouraged increased activity as tolerated Consider discharge planning post paracentesis The impression and plan of care has been dictated by Domi Goncalves, Nurse Practitioner as directed. Dr. Alysha MD I have performed a history and examination and MDM of this patient, discussed the same with the dictator, and agree with the dictator's assessment and plan as written ,documented as a scribe. Based on total visit time, I have performed more than 50% of the visit. Objective - Vital Signs Vital signs: Vital Signs Temp 98.3 F 02/04/23 13:22 Pulse 84 02/04/23 13:22 Resp 16 02/04/23 13:22 BP 93/56 02/04/23 13:22 Pulse Ox 96 02/04/23 13:22 FiO2 Intake & Output 02/03/23 02/04/23 02/04/23 18:59 06:59 18:59 Intake Total 118 Balance 118 Intake: Oral 118 Other: # Voids 1 # Bowel Movements 3 - Labs CBC & Chem 7: 02/04/23 09:18 02/03/23 06:42 Labs: Abnormal Lab Results - Last 24 Hours (Table) 02/03/23 02/04/23 02/04/23 Range/Units 16:58 09:18 09:38 RBC 2.05 L (3.80-5.40) m/uL Hgb 8.3 L (11.4-16.0) gm/dL Hct 24.3 L (34.0-46.0) % MCV 118.7 H (80.0-100.0) fL MCH 40.6 H (25.0-35.0) pg RDW 22.7 H (11.5-15.5) % Plt Count 22 L (150-450) k/uL Macrocytosis Marked A PT 24.8 H 25.0 H (10.0-12.5) sec INR 2.5 H 2.5 H (<1.2)
[2023-02-05] MEDS ORDERED: PHYTONADIONE 10 MG in SODIUM CHLORIDE 0.9% 50 ML IVPB ONE (05:45)
[2023-02-05] MEDS: MIDODRINE 5 MG TAB PO SCH ×3 (06:03→17:21)
[2023-02-05 08:31] LABS: Anisocytosis Moderate; Basophils % (A) 0 %; Eosinophils # (A) 0.3 k/uL (0-0.7); Eosinophils % (A) 5 %; HCT 21.8 % (34.0-46.0); HGB 7.6 gm/dL (11.4-16.0); Hypochromasia Slight; Lymphocytes # (A) 0.9 k/uL (1.0-4.8); Lymphocytes % (A) 12 %; MCH 41.4 pg (25.0-35.0); MCHC 34.9 g/dL (31.0-37.0); MCV 118.6 fL (80.0-100.0); Macrocytosis Marked; Mean Platelet Volume 9.2; Monocytes # (A) 0.7 k/uL (0-1.0); Monocytes % (A) 9 %; Neutrophils # (A) 5.2 k/uL (1.3-7.7); Neutrophils % (A) 70 %; Poikilocytosis Moderate; RBC 1.84 m/uL (3.80-5.40); RDW 22.9 % (11.5-15.5); WBC 7.4 k/uL (3.8-10.6)
[2023-02-05 08:34] LABS: Platelet Count 26 k/uL (150-450)
[2023-02-05] MEDS: LACTULOSE 20 GM/30 ML CUP PO SCH ×3 (08:35→20:18)
[2023-02-05] MEDS: POTASSIUM CHLORIDE ER 10 MEQ TAB.ER.PRT PO SCH (08:41)
[2023-02-05] MEDS: levETIRAcetam 500 MG TAB PO SCH ×2 (08:41→20:18)
[2023-02-05] MEDS: FUROSEMIDE 20 MG TAB PO SCH (08:41)
[2023-02-05] MEDS: FLUoxetine HCL 20 MG CAP PO SCH (08:41)
[2023-02-05] MEDS: SPIRONOLACTONE 25 MG TAB PO SCH (08:42)
[2023-02-05] MEDS: THIAMINE 100 MG TAB PO SCH (08:42)
[2023-02-05 09:02] LABS: INR 2.4 (<1.2)
[2023-02-05] MEDS ORDERED: PHYTONADIONE 10 MG in SODIUM CHLORIDE 0.9% 50 ML IVPB STA (10:53)
[2023-02-05 11:10] LABS: Polychromasia Present
--- NOTE | 2023-02-05 19:13 | P.PN ---
Subjective Progress Note Date: 02/05/23 Patient is a 52-year-old female with a known history of alcoholic liver cirrhosis with prior history of paracentesis on 12/28/2022, history of alcohol abuse, asthma, anxiety/depression bipolar disorder and currently everyday smoker and marijuana use presents to the hospital with complaints of dizziness and abdominal bloating. There is also complaining of mild abdominal pain in the lower abdominal region on admission. She is also complaining of dyspnea with exertion and leg swelling. Denies any fever or chills. No cough or sputum production. No complaints of chest pain. Patient is also complaining of room spinning on admission. EKG showed sinus tachycardia with occasional supraventricular premature complexes. On admission patient was tachycardic with heart rate 105, blood pressure 119/59 pulse ox 100% on room air. Laboratory data showed WBC 7.9 hemoglobin 7.8 MCV 121.8 and platelets 27 INR 2.4 Sodium 131 potassium 3.2, chloride 97, blood sugar 110 lactic acid 2.9 on admission Total bilirubin level is 20.5, AST 57 ALT 35 alk phos 144 troponin 0.024 and albumin 2.7 Ammonia less than 9 02/01/2023 Patient is lying in the bed. Awake alert and is confused at baseline. No complaints of chest pain. Abdominal still distended. No worsening pain. No cough or sputum production. Patient is currently on room air. Patient has been afebrile. Laboratory pressure WBC 7.5 hemoglobin 6.9 and platelets 27. Receiving 1 unit of PRBC today. Sodium 131 potassium 3.2 chloride 99 bicarb is 23 BUN 10 and creatinine 0.76 and magnesium 1.8. Patient is scheduled for paracentesis tomorrow. 02/02/2023 Patient is seen and evaluated in follow-up this morning has interventional radiology consulted and recommended an INR be less than 2 and platelets be above 50. Will order platelets to transfuse with paracentesis and will follow-up on repeat INR. Patient is maintained on vitamin K 5 mg daily Will admit additional dose and follow-up with repeat INR in the morning. Patient has no specific co mplaints and is reporting would like to go home. Patient reports she lives with her parents. Patient is currently afebrile with no reported chest pain or shortness of breath. Patient continues to have abdominal bloating and distention and ultrasound showing ascites. 02/03/2023 Patient is seen and evaluated in follow-up today and INR remains elevated at 2.5 will give another dose of vitamin K PIV follow-up with repeat labs this afternoon as well as tomorrow. Interventional radiology will not perform paracentesis until INR is 2 or less and platelets are improved. Plan is for platelets during paracentesis. Patient denies any chest pain or shortness of breath. Patient is afebrile and hemoglobin is stable currently above 7 and will follow-up with repeat labs. 02/04/2023 Patient is seen and evaluated in follow-up continues to have elevated INR of 2.4 and per nursing staff has no IV access and multiple attempts including anesthesia to evaluate for IV and patient is difficult IV access will obtain a midline. Patient did have an episode of bloody nose and hemoglobin is above 8, platelets are 20. Will give another dose of IV vitamin K and follow-up with repeat labs. Interventional radiology following for paracentesis that is much needed. Patient continues to have abdominal distention and bloated feeling 02/05/2023 Patient continues to await for INR levels to be 2 or less in order to have paracentesis done per IR recommendations. Plan is for patient to receive platelets during paracentesis as patient has chronic thrombocytopenia. Patient is afebrile with no reported chest pain or shortness of breath. Patient tolerating diet with no reported nausea or vomiting. Hemoglobin is above 7 and will monitor and follow up on repeat labs. An additional dose of vitamin K was ordered IVP back for this morning and will follow-up on repeat INR in a.m. Review of systems: Constitutional: No reports of fatigue, fever, or chills Cardiovascular: No reports of chest pain or palpitations Respiratory: No reports of shortness of breath or cough GI: No reports of nausea, vomiting, or diarrhea, reports of increased abdominal bloating and distention : No reports of dysuria or retention Neurovascular: No reports of weakness or numbness All medications have been reviewed Physical exam: Patient is lying in the bed comfortably, no acute distress, awake alert and oriented.. HEENT: Normocephalic. Neck is supple. Pupils reactive. Nostrils clear. Oral cavity is moist. Icteric. Neck reveals no JVD, carotid bruits, or thyromegaly. CHEST EXAMINATION: Trachea is central. Symmetrical expansion. Bibasilar diminished sounds.. CARDIAC: Normal S1, S2 with no gallops. No murmurs ABDOMEN: Soft. Bowel sounds present. Nontender. Distended with ascites and fluid thrill. No organomegaly could not be appreciated.. No abdominal bruits. Extremities: Bilateral lower extremity trace edema. No clubbing or cyanosis Neurologically awake, alert, oriented x3 with well-coordinated movements. No gross focal deficits noted Skin: No rash or skin lesions. Extremely jaundice Psychiatric: Cooperative. Non-suicidal Musculoskeletal: No joint swelling or deformity. Normal range of motion. Assessment: Ascites due to alcoholic liver cirrhosis. Prior paracentesis on 12/28/2022 Hypokalemia, improved Hypervolemic hyponatremia Anemia with macrocytosis due to alcohol liver disease. B12 and folate within normal limits during prior admission. Coagulopathy due to liver disease. Elevated liver enzymes Asthma not in exacerbation Anxiety/depression bipolar disorder Current everyday smoker and marijuana use History of seizure disorder DVT prophylaxis patient is already auto anticoagulated. Plan: Patient will be continued on Lasix and spironolactone. Patient is also on midodrine at home, which will be continued. Interventional radiology following for paracentesis and recommending INR 2 or less and platelets above 50. Platelets have been ordered for transfusion to be done during paracentesis and will follow-up on repeat INR in the a.m. and give another dose of vitamin K as INR today remains 2.4. Encouraged increased activity as tolerated Consider discharge planning post paracentesis The impression and plan of care has been dictated by Domi Goncalves, Nurse Practitioner as directed. Dr. New MD I have performed a history and examination and MDM of this patient, discussed the same with the dictator, and agree with the dictator's assessment and plan as written ,documented as a scribe. Based on total visit time, I have performed more than 50% of the visit. Objective - Vital Signs Vital signs: Vital Signs Temp 98.3 F 02/05/23 07:54 Pulse 110 H 02/05/23 12:40 Resp 18 02/05/23 07:54 BP 101/66 02/05/23 12:40 Pulse Ox 94 L 02/05/23 07:54 FiO2 Intake & Output 02/04/23 02/05/23 02/05/23 18:59 06:59 18:59 Intake Total 118 Balance 118 Intake: Oral 118 Other: Voiding Method Toilet Toilet # Voids 1 1 # Bowel Movements 1 - Labs CBC & Chem 7: 02/05/23 08:13 02/03/23 06:42 Labs: Abnormal Lab Results - Last 24 Hours (Table) 02/04/23 02/05/23 02/05/23 Range/Units 18:46 08:13 08:13 RBC 1.84 L (3.80-5.40) m/uL Hgb 7.6 L (11.4-16.0) gm/dL Hct 21.8 L (34.0-46.0) % MCV 118.6 H (80.0-100.0) fL MCH 41.4 H (25.0-35.0) pg RDW 22.9 H (11.5-15.5) % Plt Count 26 L (150-450) k/uL Lymphocytes # 0.9 L (1.0-4.8) k/uL Macrocytosis Marked A PT 24.0 H 24.0 H (10.0-12.5) sec INR 2.4 H 2.4 H (<1.2)
[2023-02-06] MEDS: IBUPROFEN 400 MG TAB PO PRN (02:24)
[2023-02-06 04:26] LABS: Mean Platelet Volume 9.2
[2023-02-06 04:29] LABS: Platelet Count 22 k/uL (150-450)
[2023-02-06 04:39] LABS: INR 2.5 (<1.2); Prothrombin Time 24.5 sec (10.0-12.5)
[2023-02-06] MEDS: MIDODRINE 5 MG TAB PO SCH ×3 (06:30→17:53)
[2023-02-06] MEDS: SPIRONOLACTONE 25 MG TAB PO SCH (10:03)
[2023-02-06] MEDS: POTASSIUM CHLORIDE ER 10 MEQ TAB.ER.PRT PO SCH (10:03)
[2023-02-06] MEDS: levETIRAcetam 500 MG TAB PO SCH ×2 (10:03→19:51)
[2023-02-06] MEDS: THIAMINE 100 MG TAB PO SCH (10:03)
[2023-02-06] MEDS: FLUoxetine HCL 20 MG CAP PO SCH (10:03)
[2023-02-06] MEDS: FUROSEMIDE 20 MG TAB PO SCH (10:03)
[2023-02-06] MEDS: LACTULOSE 20 GM/30 ML CUP PO SCH ×3 (10:04→19:38)
[2023-02-06] MEDS ORDERED: PHYTONADIONE ORAL 5 MG/5 ML ORAL.SYRG PO STA (12:15)
[2023-02-06 14:49] LABS: INR 2.4 (<1.2); Prothrombin Time 23.6 sec (10.0-12.5)
--- NOTE | 2023-02-06 18:17 | P.PN ---
Subjective Progress Note Date: 02/06/23 Patient is a 52-year-old female with a known history of alcoholic liver cirrhosis with prior history of paracentesis on 12/28/2022, history of alcohol abuse, asthma, anxiety/depression bipolar disorder and currently everyday smoker and marijuana use presents to the hospital with complaints of dizziness and abdominal bloating. There is also complaining of mild abdominal pain in the lower abdominal region on admission. She is also complaining of dyspnea with exertion and leg swelling. Denies any fever or chills. No cough or sputum production. No complaints of chest pain. Patient is also complaining of room spinning on admission. EKG showed sinus tachycardia with occasional supraventricular premature complexes. On admission patient was tachycardic with heart rate 105, blood pressure 119/59 pulse ox 100% on room air. Objective - Vital Signs Vital signs: Vital Signs Temp 98.1 F 02/06/23 08:00 Pulse 64 02/06/23 08:00 Resp 17 02/06/23 08:00 BP 154/74 02/06/23 08:00 Pulse Ox 94 L 02/06/23 08:00 FiO2 Intake & Output 02/05/23 02/06/23 02/06/23 18:59 06:59 18:59 Intake Total 236 Balance 236 Intake: Oral 236 Other: Voiding Method Toilet Toilet # Voids 1 # Bowel Movements 1 - Exam Patient is lying in the bed comfortably, no acute distress, awake alert and oriented.. HEENT: Normocephalic. Neck is supple. Pupils reactive. Nostrils clear. Oral cavity is moist. Icteric. Neck reveals no JVD, carotid bruits, or thyromegaly. CHEST EXAMINATION: Trachea is central. Symmetrical expansion. Bibasilar diminished sounds.. CARDIAC: Normal S1, S2 with no gallops. No murmurs ABDOMEN: Soft. Bowel sounds present. Nontender. Distended with ascites and fluid thrill. No organomegaly could not be appreciated.. No abdominal bruits. Extremities: Bilateral lower extremity trace edema. No clubbing or cyanosis Neurologically awake, alert, oriented x3 with well-coordinated movements. No gross focal deficits noted Skin: No rash or skin lesions. Extremely jaundice Psychiatric: Cooperative. Non-suicidal Musculoskeletal: No joint swelling or deformity. Normal range of motion. - Labs CBC & Chem 7: 02/06/23 03:46 02/03/23 06:42 Labs: Abnormal Lab Results - Last 24 Hours (Table) 02/06/23 02/06/23 Range/Units 03:46 03:46 Plt Count 22 L (150-450) k/uL PT 24.5 H (10.0-12.5) sec INR 2.5 H (<1.2) Assessment and Plan Assessment: Ascites due to alcoholic liver cirrhosis. Prior paracentesis on 12/28/2022 Hypokalemia, improved Hypervolemic hyponatremia Anemia with macrocytosis due to alcohol liver disease. B12 and folate within normal limits during prior admission. Coagulopathy due to liver disease. Elevated liver enzymes Asthma not in exacerbation Anxiety/depression bipolar disorder Current everyday smoker and marijuana use History of seizure disorder DVT prophylaxis patient is already auto anticoagulated. Plan: Patient will be continued on Lasix and spironolactone. Patient is also on midodrine at home, which will be continued. Interventional radiology following for paracentesis and recommending INR 2 or less and platelets above 50. Platelets have been ordered for transfusion to be done during paracentesis and will follow-up on repeat INR in the a.m. and give another dose of vitamin K as INR today remains 2.4. Encouraged increased activity as tolerated Consider discharge planning post paracentesis
[2023-02-06] MEDS ORDERED: PHYTONADIONE ORAL 5 MG/5 ML ORAL.SYRG PO ONE (18:45)
[2023-02-07 04:34] LABS: Anisocytosis Moderate; HCT 20.2 % (34.0-46.0); Hypochromasia Slight; MCH 41.9 pg (25.0-35.0); MCHC 34.9 g/dL (31.0-37.0); MCV 120.2 fL (80.0-100.0); Macrocytosis Marked; Mean Platelet Volume 9.5; Poikilocytosis Moderate; RBC 1.68 m/uL (3.80-5.40); RDW 22.6 % (11.5-15.5)
[2023-02-07 04:47] LABS: Platelet Count 28 k/uL (150-450)
[2023-02-07 05:04] LABS: ALT 37 U/L (4-34); AST 58 U/L (14-36); African American GFR (CKD) >90 (>60 ml/min/1.73 sqM); Albumin 2.3 g/dL (3.5-5.0); Albumin/Globulin Ratio 0.6; Alkaline Phosphatase 131 U/L (38-126); Anion Gap 10 mmol/L; Blood Urea Nitrogen 10 mg/dL (7-17); Carbon Dioxide 21 mmol/L (22-30); Chloride 102 mmol/L (98-107); Globulin 3.6 g/dL; Glucose 149 mg/dL (74-99); Non-African American GFR(CKD) 80 (>60 ml/min/1.73 sqM); Potassium 3.3 mmol/L (3.5-5.1); Sodium 133 mmol/L (137-145); Total Protein 5.9 g/dL (6.3-8.2)
[2023-02-07 05:33] LABS: INR 2.4 (<1.2); Prothrombin Time 23.5 sec (10.0-12.5)
[2023-02-07] MEDS: MIDODRINE 5 MG TAB PO SCH ×3 (06:26→17:01)
[2023-02-07 07:03] VITALS: BMI 26.6
[2023-02-07] MEDS: LACTULOSE 20 GM/30 ML CUP PO SCH ×3 (08:55→20:41)
[2023-02-07] MEDS: FLUoxetine HCL 20 MG CAP PO SCH (08:56)
[2023-02-07] MEDS: levETIRAcetam 500 MG TAB PO SCH ×2 (08:56→20:41)
[2023-02-07] MEDS: THIAMINE 100 MG TAB PO SCH (08:56)
[2023-02-07] MEDS: POTASSIUM CHLORIDE ER 10 MEQ TAB.ER.PRT PO SCH (08:56)
[2023-02-07] MEDS: FUROSEMIDE 20 MG TAB PO SCH (08:56)
[2023-02-07] MEDS: SPIRONOLACTONE 25 MG TAB PO SCH (08:56)
[2023-02-07] MEDS: OXYMETAZOLINE 0.05% NASL SPRAY 1 SPRAY BOTTLE NASAL PRN (08:59)
[2023-02-07] MEDS: POTASSIUM CHLORIDE ER 20 MEQ TAB.ER PO SCH ×2 (10:16→12:05)
--- NOTE | 2023-02-07 18:46 | P.PN ---
Subjective Progress Note Date: 02/07/23 Patient is a 52-year-old female with a known history of alcoholic liver cirrhosis with prior history of paracentesis on 12/28/2022, history of alcohol abuse, asthma, anxiety/depression bipolar disorder and currently everyday smoker and marijuana use presents to the hospital with complaints of dizziness and abdominal bloating. There is also complaining of mild abdominal pain in the lower abdominal region on admission. She is also complaining of dyspnea with exertion and leg swelling. Denies any fever or chills. No cough or sputum production. No complaints of chest pain. Patient is also complaining of room spinning on admission. EKG showed sinus tachycardia with occasional supraventricular premature complexes. On admission patient was tachycardic with heart rate 105, blood pressure 119/59 pulse ox 100% on room air. 02/07/2023 Patient is seen and evaluated crest in bed; reports some abdominal discomfort; no shortness of breath Vital signs are reviewed, temperature of 97.9, pulse 11, respiration 18 blood pressure of 90 cm 64 and O2 saturation of 97% on room air Lab review shows WBC of 6.0, hemoglobin of 7.0 and platelet count of 28, INR remains elevated at 2.4, sodium 133, potassium 3.3, total bilirubin is elevated at 16 -- Patient has received multiple doses of vitamin K; INR remains elevated; INR has been consulted for paracentesis -- Patient currently is in not in any distress; I will hold off on further vitamin K; this was discussed in detail with the patient; we will try albumin infusion -- Recommend palliative care Objective - Vital Signs Vital signs: Vital Signs Temp 98 F 02/07/23 07:30 Pulse 107 H 02/07/23 07:30 Resp 20 02/07/23 07:30 BP 100/62 02/07/23 07:30 Pulse Ox 98 02/07/23 07:30 FiO2 Intake & Output 02/06/23 02/07/23 02/07/23 18:59 06:59 18:59 Intake Total 268 90 Balance 268 90 Weight 72.575 kg Intake: Oral 268 90 Other: Voiding Method Toilet Toilet # Voids 1 1 1 - Exam Patient is lying in the bed comfortably, no acute distress, awake alert and oriented.. HEENT: Normocephalic. Neck is supple. Pupils reactive. Nostrils clear. Oral cavity is moist. Icteric. Neck reveals no JVD, carotid bruits, or thyromegaly. CHEST EXAMINATION: Trachea is central. Symmetrical expansion. Bibasilar diminished sounds.. CARDIAC: Normal S1, S2 with no gallops. No murmurs ABDOMEN: Soft. Bowel sounds present. Nontender. Distended with ascites and fluid thrill. No organomegaly could not be appreciated.. No abdominal bruits. Extremities: Bilateral lower extremity trace edema. No clubbing or cyanosis Neurologically awake, alert, oriented x3 with well-coordinated movements. No gross focal deficits noted Skin: No rash or skin lesions. Extremely jaundice Psychiatric: Cooperative. Non-suicidal Musculoskeletal: No joint swelling or deformity. Normal range of motion. - Labs CBC & Chem 7: 02/07/23 04:11 02/07/23 04:11 Labs: Abnormal Lab Results - Last 24 Hours (Table) 02/06/23 02/07/23 02/07/23 Range/Units 14:03 04:06 04:11 RBC 1.68 L (3.80-5.40) m/uL Hgb 7.0 L (11.4-16.0) gm/dL Hct 20.2 L (34.0-46.0) % MCV 120.2 H (80.0-100.0) fL MCH 41.9 H (25.0-35.0) pg RDW 22.6 H (11.5-15.5) % Plt Count 28 L (150-450) k/uL Macrocytosis Marked A PT 23.6 H 23.5 H (10.0-12.5) sec INR 2.4 H 2.4 H (<1.2) Sodium (137-145) mmol/L Potassium (3.5-5.1) mmol/L Carbon Dioxide (22-30) mmol/L Glucose (74-99) mg/dL Calcium (8.4-10.2) mg/dL Total Bilirubin (0.2-1.3) mg/dL AST (14-36) U/L ALT (4-34) U/L Alkaline Phosphatase (38-126) U/L Total Protein (6.3-8.2) g/dL Albumin (3.5-5.0) g/dL 02/07/23 Range/Units 04:11 RBC (3.80-5.40) m/uL Hgb (11.4-16.0) gm/dL Hct (34.0-46.0) % MCV (80.0-100.0) fL MCH (25.0-35.0) pg RDW (11.5-15.5) % Plt Count (150-450) k/uL Macrocytosis PT (10.0-12.5) sec INR (<1.2) Sodium 133 L (137-145) mmol/L Potassium 3.3 L (3.5-5.1) mmol/L Carbon Dioxide 21 L (22-30) mmol/L Glucose 149 H (74-99) mg/dL Calcium 8.0 L (8.4-10.2) mg/dL Total Bilirubin 16.0 H* (0.2-1.3) mg/dL AST 58 H (14-36) U/L ALT 37 H (4-34) U/L Alkaline Phosphatase 131 H (38-126) U/L Total Protein 5.9 L (6.3-8.2) g/dL Albumin 2.3 L (3.5-5.0) g/dL Assessment and Plan Assessment: Ascites due to alcoholic liver cirrhosis. Prior paracentesis on 12/28/2022 Hypokalemia, improved Hypervolemic hyponatremia Anemia with macrocytosis due to alcohol liver disease. B12 and folate within normal limits during prior admission. Coagulopathy due to liver disease. Elevated liver enzymes Asthma not in exacerbation Anxiety/depression bipolar disorder Current everyday smoker and marijuana use History of seizure disorder DVT prophylaxis patient is already auto anticoagulated. Plan: Patient will be continued on Lasix and spironolactone. Patient is also on midodrine at home, which will be continued. Interventional radiology following for paracentesis and recommending INR 2 or less and platelets above 50. Platelets have been ordered for transfusion to be done during paracentesis and will follow-up on repeat INR in the a.m. and give another dose of vitamin K as INR today remains 2.4. Encouraged increased activity as tolerated Consider discharge planning post paracentesis
[2023-02-08] MEDS: OXYMETAZOLINE 0.05% NASL SPRAY 1 SPRAY BOTTLE NASAL PRN ×2 (06:02→20:21)
[2023-02-08] MEDS: MIDODRINE 5 MG TAB PO SCH ×3 (06:02→17:11)
[2023-02-08] MEDS: POTASSIUM CHLORIDE ER 10 MEQ TAB.ER.PRT PO SCH (08:14)
[2023-02-08] MEDS: FUROSEMIDE 20 MG TAB PO SCH (08:28)
[2023-02-08] MEDS: SPIRONOLACTONE 25 MG TAB PO SCH (08:28)
[2023-02-08] MEDS: THIAMINE 100 MG TAB PO SCH (08:29)
[2023-02-08] MEDS: FLUoxetine HCL 20 MG CAP PO SCH (08:29)
[2023-02-08] MEDS: levETIRAcetam 500 MG TAB PO SCH ×2 (08:29→20:21)
[2023-02-08] MEDS: LACTULOSE 20 GM/30 ML CUP PO SCH ×3 (08:29→20:21)
[2023-02-08] MEDS ORDERED: POTASSIUM CHLORIDE ER 20 MEQ TAB.ER PO ONE (09:00)
[2023-02-08] MEDS: ALBUMIN HUMAN 25% 50 ML in EMPTY BAG 1 BAG IVPB SCH ×2 (13:45→16:21)
[2023-02-08 14:49] LABS: Anisocytosis Moderate; HCT 23.3 % (34.0-46.0); HGB 8.1 gm/dL (11.4-16.0); Hypochromasia Moderate; MCHC 34.7 g/dL (31.0-37.0); MCV 121.3 fL (80.0-100.0); Macrocytosis Marked; Mean Platelet Volume 8.6; Poikilocytosis Moderate; RBC 1.92 m/uL (3.80-5.40); RDW 21.2 % (11.5-15.5); WBC 7.4 k/uL (3.8-10.6)
[2023-02-08 14:59] LABS: MCH 42.1 pg (25.0-35.0)
[2023-02-08 15:00] LABS: Platelet Count 30 k/uL (150-450)
[2023-02-08 15:29] LABS: Band Neutrophils % 3 %; Lymphocytes # (M) 0.67 k/uL (1.0-4.8); Monocytes # (M) 0.74 k/uL (0-1.0); Neutrophils % (M) 74 %; Nucleated Red Blood Cells 0 /100 WBC (0-0); Total Cells Counted 100
[2023-02-08 15:30] LABS: Anisocytosis (M) 2+; Poikilocytosis (M) 2+; Polychromasia 2+
[2023-02-08 15:31] LABS: Hypochromasia (M) 2+
--- NOTE | 2023-02-08 17:38 | P.PN ---
Subjective Progress Note Date: 02/08/23 Patient is a 52-year-old female with a known history of alcoholic liver cirrhosis with prior history of paracentesis on 12/28/2022, history of alcohol abuse, asthma, anxiety/depression bipolar disorder and currently everyday smoker and marijuana use presents to the hospital with complaints of dizziness and abdominal bloating. There is also complaining of mild abdominal pain in the lower abdominal region on admission. She is also complaining of dyspnea with exertion and leg swelling. Denies any fever or chills. No cough or sputum production. No complaints of chest pain. Patient is also complaining of room spinning on admission. EKG showed sinus tachycardia with occasional supraventricular premature complexes. On admission patient was tachycardic with heart rate 105, blood pressure 119/59 pulse ox 100% on room air. 02/07/2023 Patient is seen and evaluated crest in bed; reports some abdominal discomfort; no shortness of breath Vital signs are reviewed, temperature of 97.9, pulse 11, respiration 18 blood pressure of 90 cm 64 and O2 saturation of 97% on room air Lab review shows WBC of 6.0, hemoglobin of 7.0 and platelet count of 28, INR remains elevated at 2.4, sodium 133, potassium 3.3, total bilirubin is elevated at 16 -- Patient has received multiple doses of vitamin K; INR remains elevated; INR has been consulted for paracentesis -- Patient currently is in not in any distress; I will hold off on further vitamin K; this was discussed in detail with the patient; we will try albumin infusion -- Recommend palliative care 02/08/2023; patient is seen and evaluated in room at bedside; the pain or shortness of breath Vital signs are reviewed and remained stable; patient did receive 1 dose of 25% albumin for symptomatic relief Palliative care was consulted for clarification of goals of care Objective - Vital Signs Vital signs: Vital Signs Temp 97.5 F L 02/08/23 07:46 Pulse 101 H 02/08/23 07:46 Resp 18 02/08/23 07:46 BP 99/63 02/08/23 07:46 Pulse Ox 94 L 02/08/23 07:46 FiO2 Intake & Output 02/07/23 02/08/23 02/08/23 18:59 06:59 18:59 Intake Total 90 120 Output Total 0 Balance 90 0 120 Intake: Oral 90 120 Output: Emesis 0 Other: Voiding Method Toilet Toilet Toilet # Voids 1 - Exam Patient is lying in the bed comfortably, no acute distress, awake alert and oriented.. HEENT: Normocephalic. Neck is supple. Pupils reactive. Nostrils clear. Oral cavity is moist. Icteric. Neck reveals no JVD, carotid bruits, or thyromegaly. CHEST EXAMINATION: Trachea is central. Symmetrical expansion. Bibasilar diminished sounds.. CARDIAC: Normal S1, S2 with no gallops. No murmurs ABDOMEN: Soft. Bowel sounds present. Nontender. Distended with ascites and fluid thrill. No organomegaly could not be appreciated.. No abdominal bruits. Extremities: Bilateral lower extremity trace edema. No clubbing or cyanosis Neurologically awake, alert, oriented x3 with well-coordinated movements. No gross focal deficits noted Skin: No rash or skin lesions. Extremely jaundice Psychiatric: Cooperative. Non-suicidal Musculoskeletal: No joint swelling or deformity. Normal range of motion. - Labs CBC & Chem 7: 02/08/23 14:07 02/08/23 05:18 Assessment and Plan Assessment: Ascites due to alcoholic liver cirrhosis. Prior paracentesis on 12/28/2022 Hypokalemia, improved Hypervolemic hyponatremia Anemia with macrocytosis due to alcohol liver disease. B12 and folate within normal limits during prior admission. Coagulopathy due to liver disease. Elevated liver enzymes Asthma not in exacerbation Anxiety/depression bipolar disorder Current everyday smoker and marijuana use History of seizure disorder DVT prophylaxis patient is already auto anticoagulated. Plan: Patient will be continued on Lasix and spironolactone. Patient is also on midodrine at home, which will be continued. Interventional radiology following for paracentesis and recommending INR 2 or less and platelets above 50. Platelets have been ordered for transfusion to be done during paracentesis and will follow-up on repeat INR in the a.m. and give another dose of vitamin K as INR today remains 2.4. Encouraged increased activity as tolerated Consider discharge planning post paracentesis
[2023-02-09] MEDS: MIDODRINE 5 MG TAB PO SCH ×3 (06:14→17:38)
[2023-02-09] MEDS: FLUoxetine HCL 20 MG CAP PO SCH (08:13)
[2023-02-09] MEDS: THIAMINE 100 MG TAB PO SCH (08:14)
[2023-02-09] MEDS: FUROSEMIDE 20 MG TAB PO SCH (08:14)
[2023-02-09] MEDS: levETIRAcetam 500 MG TAB PO SCH ×2 (08:14→19:56)
[2023-02-09] MEDS: LACTULOSE 20 GM/30 ML CUP PO SCH ×3 (08:14→19:56)
[2023-02-09] MEDS: SPIRONOLACTONE 25 MG TAB PO SCH (08:14)
[2023-02-09] MEDS: POTASSIUM CHLORIDE ER 10 MEQ TAB.ER.PRT PO SCH (08:14)
[2023-02-09 09:28] LABS: Blood Urea Nitrogen 7.9 mg/dL (9.0-27.0); Calcium 8.7 mg/dL (8.7-10.3); Carbon Dioxide 21.8 mmol/L (21.6-31.8); Chloride 100 mmol/L (96-109); Glucose 88 mg/dL (70-110); Potassium 3.5 mmol/L (3.5-5.5); Sodium 134 mmol/L (135-145)
[2023-02-09 09:51] LABS: Basophils # (A) 0.07 X 10*3/uL (0.00-0.10); Eosinophils # (A) 0.38 X 10*3/uL (0.04-0.35); Eosinophils % (A) 5.5 %; HCT 22.2 % (37.2-46.3); HGB 7.3 g/dL (12.0-15.0); Immature Platelet Fraction 6.5 % (1.1-6.1); Lymphocytes # (A) 0.96 X 10*3/uL (0.90-5.00); Lymphocytes % (A) 13.9 %; MCH 41.2 pg (27.0-32.0); MCHC 32.9 g/dL (32.0-37.0); MCV 125.4 FL (80.0-97.0); Mean Platelet Volume 10.5 FL (9.5-12.2); Monocytes # (A) 0.92 X 10*3/uL (0.20-1.00); Monocytes % (A) 13.4 %; NRBC Per 100 WBC 0.03 X 10*3/uL (0.00-0.01); Neutrophils % (A) 63.9 %; Platelet Count 23 X 10*3/uL (140-440); RBC 1.77 X 10*6/uL (4.10-5.20); RDW 25.1 % (11.5-14.5); WBC 6.89 X 10*3/uL (4.50-10.00)
[2023-02-09 10:13] LABS: INR 2.3 (<1.2); Prothrombin Time 23.1 sec (10.0-12.5)
[2023-02-09] MEDS ORDERED: PHYTONADIONE ORAL 5 MG/5 ML ORAL.SYRG PO STA (11:51)
[2023-02-09] MEDS ORDERED: IBUPROFEN 200 MG TAB PO PRN (14:10)
--- NOTE | 2023-02-09 15:41 | US ---
Ultrasound guidance for venous access: HISTORY: IV malfunction requiring placement of IV line prior to procedure for platelet infusion FINDINGS/TECHNIQUE: Ultrasound guidance was used for placement of an IV line within the right upper e xtremity. Images confirm placement of the IV line within the venous system. IMPRESSION: Ultrasound guidance for venous access.
[2023-02-09] MEDS: ALBUMIN HUMAN 25% 50 ML in EMPTY BAG 1 BAG IVPB SCH ×2 (18:56→19:57)
--- NOTE | 2023-02-09 19:07 | P.PN ---
Subjective Progress Note Date: 02/09/23 Patient is a 52-year-old female with a known history of alcoholic liver cirrhosis with prior history of paracentesis on 12/28/2022, history of alcohol abuse, asthma, anxiety/depression bipolar disorder and currently everyday smoker and marijuana use presents to the hospital with complaints of dizziness and abdominal bloating. There is also complaining of mild abdominal pain in the lower abdominal region on admission. She is also complaining of dyspnea with exertion and leg swelling. Denies any fever or chills. No cough or sputum production. No complaints of chest pain. Patient is also complaining of room spinning on admission. EKG showed sinus tachycardia with occasional supraventricular premature complexes. On admission patient was tachycardic with heart rate 105, blood pressure 119/59 pulse ox 100% on room air. Laboratory data showed WBC 7.9 hemoglobin 7.8 MCV 121.8 and platelets 27 INR 2.4 Sodium 131 potassium 3.2, chloride 97, blood sugar 110 lactic acid 2.9 on admission Total bilirubin level is 20.5, AST 57 ALT 35 alk phos 144 troponin 0.024 and albumin 2.7 Ammonia less than 9 02/01/2023 Patient is lying in the bed. Awake alert and is confused at baseline. No complaints of chest pain. Abdominal still distended. No worsening pain. No cough or sputum production. Patient is currently on room air. Patient has been afebrile. Laboratory pressure WBC 7.5 hemoglobin 6.9 and platelets 27. Receiving 1 unit of PRBC today. Sodium 131 potassium 3.2 chloride 99 bicarb is 23 BUN 10 and creatinine 0.76 and magnesium 1.8. Patient is scheduled for paracentesis tomorrow. 02/02/2023 Patient is seen and evaluated in follow-up this morning has interventional radiology consulted and recommended an INR be less than 2 and platelets be above 50. Will order platelets to transfuse with paracentesis and will follow-up on repeat INR. Patient is maintained on vitamin K 5 mg daily Will admit additional dose and follow-up with repeat INR in the morning. Patient has no specific co mplaints and is reporting would like to go home. Patient reports she lives with her parents. Patient is currently afebrile with no reported chest pain or shortness of breath. Patient continues to have abdominal bloating and distention and ultrasound showing ascites. 02/03/2023 Patient is seen and evaluated in follow-up today and INR remains elevated at 2.5 will give another dose of vitamin K PIV follow-up with repeat labs this afternoon as well as tomorrow. Interventional radiology will not perform paracentesis until INR is 2 or less and platelets are improved. Plan is for platelets during paracentesis. Patient denies any chest pain or shortness of breath. Patient is afebrile and hemoglobin is stable currently above 7 and will follow-up with repeat labs. 02/04/2023 Patient is seen and evaluated in follow-up continues to have elevated INR of 2.4 and per nursing staff has no IV access and multiple attempts including anesthesia to evaluate for IV and patient is difficult IV access will obtain a midline. Patient did have an episode of bloody nose and hemoglobin is above 8, platelets are 20. Will give another dose of IV vitamin K and follow-up with repeat labs. Interventional radiology following for paracentesis that is much needed. Patient continues to have abdominal distention and bloated feeling 02/05/2023 Patient continues to await for INR levels to be 2 or less in order to have paracentesis done per IR recommendations. Plan is for patient to receive platelets during paracentesis as patient has chronic thrombocytopenia. Patient is afebrile with no reported chest pain or shortness of breath. Patient tolerating diet with no reported nausea or vomiting. Hemoglobin is above 7 and will monitor and follow up on repeat labs. An additional dose of vitamin K was ordered IVP back for this morning and will follow-up on repeat INR in a.m. 02/07/2023 Patient is seen and evaluated crest in bed; reports some abdominal discomfort; no shortness of breath Vital signs are reviewed, temperature of 97.9, pulse 11, respiration 18 blood pressure of 90 cm 64 and O2 saturation of 97% on room air Lab review shows WBC of 6.0, hemoglobin of 7.0 and platelet count of 28, INR remains elevated at 2.4, sodium 133, potassium 3.3, total bilirubin is elevated at 16 -- Patient has received multiple doses of vitamin K; INR remains elevated; INR has been consulted for paracentesis -- Patient currently is in not in any distress; I will hold off on further vitamin K; this was discussed in detail with the patient; we will try albumin infusion -- Recommend palliative care 02/08/2023; patient is seen and evaluated in room at bedside; the pain or shortness of breath Vital signs are reviewed and remained stable; patient did receive 1 dose of 25% albumin for symptomatic relief Palliative care was consulted for clarification of goals of care 02/09/2023 Patient is seen in follow-up this morning currently awaiting repeat INR levels as patient is scheduled to undergo possible paracentesis although has been withheld for quite some time secondary to elevated INRs. Interventional radiology recommending fresh frozen plasma along with platelets to be transfused during paracentesis. Patient with significant history of alcoholic cirrhosis with significant abdominal distention is in need of paracentesis. Patient is currently afebrile with normal reports of chest pain or shortness of breath. Patient tolerating diet. INR is currently 2.3 and will undergo paracentesis. K being given orally. Review of systems: Constitutional: No reports of fatigue, fever, or chills Cardiovascular: No reports of chest pain or palpitations Respiratory: No reports of shortness of breath or cough GI: No reports of nausea, vomiting, or diarrhea, reports of increased abdominal bloating and distention : No reports of dysuria or retention Neurovascular: No reports of weakness or numbness All medications have been reviewed Physical exam: Patient is sitting up in the bed, awake alert and oriented 2. Jaundice HEENT: Normocephalic. Neck is supple. Pupils reactive. Nostrils clear. Oral cavity is moist. Icteric. Neck reveals no JVD, carotid bruits, or thyromegaly. CHEST EXAMINATION: Trachea is central. Symmetrical expansion. Bibasilar diminished sounds.. CARDIAC: Normal S1, S2 with no gallops. No murmurs ABDOMEN: Soft. Bowel sounds present. Nontender. Distended with ascites and fluid thrill. No abdominal bruits. Extremities: Bilateral lower extremity trace edema. No clubbing or cyanosis Neurologically awake, alert, oriented x2-3 baseline with well-coordinated movements. No gross focal deficits noted Skin: No rash or skin lesions. Extremely jaundice Psychiatric: Cooperative. Non-suicidal Musculoskeletal: No joint swelling or deformity. Normal range of motion. Assessment: Ascites due to alcoholic liver cirrhosis. Prior paracentesis on 12/28/2022 Hypokalemia, improved Hypervolemic hyponatremia Anemia with macrocytosis due to alcohol liver disease. B12 and folate within normal limits during prior admission. Coagulopathy due to liver disease. Elevated liver enzymes Asthma not in exacerbation Anxiety/depression bipolar disorder Current everyday smoker and marijuana use History of seizure disorder DVT prophylaxis patient is already auto anticoagulated. Plan: Patient will be continued on Lasix and spironolactone. Patient is also on midodrine at home, which will be continued. Interventional radiology following for paracentesis and recommending fresh frozen plasma as well as platelets to be given during paracentesis. INR was 2.3 and will give a dose of vitamin K 10 mg orally. Patient did have paracentesis with approximately 9 L removed and will require albumin. Patient will continue on vitamin K 5 mg daily with possible discharge planning in the next 24 hours. Encouraged increased activity as tolerated The impression and plan of care has been dictated by Domi Goncalves, Nurse Practitioner as directed. Dr. Haris MD I have performed a history and examination and MDM of this patient, discussed the same with the dictator, and agree with the dictator's assessment and plan as written ,documented as a scribe. Based on total visit time, I have performed more than 50% of the visit. Objective - Vital Signs Vital signs: Vital Signs Temp 97.9 F 02/09/23 07:36 Pulse 102 H 02/09/23 08:00 Resp 18 02/09/23 08:00 BP 105/67 02/09/23 07:36 Pulse Ox 93 L 02/09/23 07:36 FiO2 Intake & Output 02/08/23 02/09/23 02/09/23 18:59 06:59 18:59 Intake Total 240 118 Balance 240 118 Intake: Oral 240 118 Other: Voiding Method Toilet Toilet Toilet # Voids 1 1 1 - Labs CBC & Chem 7: 02/09/23 06:03 02/09/23 06:03 Labs: Abnormal Lab Results - Last 24 Hours (Table) 02/08/23 02/09/23 Range/Units 14:07 06:03 RBC 1.92 L (3.80-5.40) m/uL Hgb 8.1 L (11.4-16.0) gm/dL Hct 23.3 L (34.0-46.0) % MCV 121.3 H (80.0-100.0) fL MCH 42.1 H (25.0-35.0) pg RDW 21.2 H (11.5-15.5) % Plt Count 30 L (150-450) k/uL Lymphocytes # (Manual) 0.67 L (1.0-4.8) k/uL Macrocytosis Marked A Sodium 134 L (135-145) mmol/L Anion Gap 12.20 H (4.00-12.00) mmol/L BUN 7.9 L (9.0-27.0) mg/dL Creatinine 0.5 L (0.6-1.5) mg/dL
[2023-02-10] MEDS: MIDODRINE 5 MG TAB PO SCH (06:18)
[2023-02-10] MEDS: levETIRAcetam 500 MG TAB PO SCH (07:45)
[2023-02-10] MEDS: FUROSEMIDE 20 MG TAB PO SCH (07:45)
[2023-02-10] MEDS: THIAMINE 100 MG TAB PO SCH (07:45)
[2023-02-10] MEDS: SPIRONOLACTONE 25 MG TAB PO SCH (07:45)
[2023-02-10] MEDS: POTASSIUM CHLORIDE ER 10 MEQ TAB.ER.PRT PO SCH (07:45)
[2023-02-10] MEDS: FLUoxetine HCL 20 MG CAP PO SCH (07:46)
[2023-02-10] MEDS: LACTULOSE 20 GM/30 ML CUP PO SCH (07:46)
[2023-02-10] MEDS ORDERED: PHYTONADIONE ORAL 5 MG/5 ML ORAL.SYRG PO SCH (09:00)
--- NOTE | 2023-02-10 09:02 | US ---
Ultrasound-guided paracentesis. DATE OF EXAM: 02/09/2023 CLINICAL HISTORY: Ascites The procedure was discussed with the patient. The risks, complications, benefits, and alternatives we re discussed and any questions were answered. Informed consent was obtained. The patient was placed s upine on the ultrasound table and prepped and draped in the usual sterile fashion. All elements of maximal barrier technique were utilized. Under ultrasound guidance, access into the right lower quadrant was obtained, via the paracentesis catheter system and direct ultrasound guidanc e. Approximately 9.5 liters of straw-colored fluid was removed. The patient was stable throughout the pr ocedure and remained stable upon discharge from Department of Radiology. IMPRESSION: Successful paracentesis under ultrasound guidance.
--- NOTE | 2023-02-10 10:51 | P.DS ---
Providers Date of admission: 01/31/23 07:12 Expected date of discharge: 02/10/23 Attending physician: Roger Carballo Primary care physician: Stated None Hospital Course: Final diagnosis Ascites due to alcoholic liver cirrhosis. Prior paracentesis on 12/28/2022, status post paracentesis on 02/09/2023 of 9 L Hypokalemia, improved Hypervolemic hyponatremia Anemia with macrocytosis due to alcohol liver disease. B12 and folate within normal limits during prior admission. Coagulopathy due to liver disease. Elevated liver enzymes Asthma not in exacerbation Anxiety/depression bipolar disorder Current everyday smoker and marijuana use History of seizure disorder DVT prophylaxis patient is already auto anticoagulated. Discharge disposition Patient is being discharged in a stable condition with guarded prognosis to home and Homecare. Patient will follow-up with Dr. Toribio in the outpatient setting upon discharge. Patient is to continue with outpatient GI follow-up and likely need palliative paracentesis as scheduled. Repeat labs to monitor INR as well as electrolytes in the outpatient setting provided. Total time taken is greater than 35 minutes. Hospital course This is a 52-year-old female who was recently admitted with increased abdominal pain and abdominal distention with ascites with significant history of alcoholic cirrhosis. Patient had a recent paracentesis on December 28 of this year and is to follow with GI outpatient. Patient will chronically probably need palliative paracentesis secondary to ascites. Patient had elevated INR and chronically takes vitamin K daily and recommend continue with follow-up labs. Patient also has low platelets and did receive a unit of FFP along with platelets during paracentesis with approximately 9 L removed. Patient reports to feeling well and will be going home. Patient does have home care arranged in the outpatient setting. Currently no reports of chest pain, shortness of breath, or palpitations. Patient is afebrile. No reports of nausea or vomiting and patie nt is tolerating diet. Patient will be discharged home with home care today. Guarded prognosis and high risk for readmissions given patient's significant alcohol cirrhosis. Physical exam: Gen: This is a 52-year-old female who is awake, alert and oriented 2-3, baseline, well-developed, elderly-appearing, jaundice HEENT: Head is atraumatic, normocephalic. Pupils equal, round. Sclerae is anicte taya. NECK: Supple. No JVD. No lymphadenopathy. No thyromegaly. LUNGS: Clear to auscultation. No wheezes or rhonchi. No intercostal retractions. HEART: Regular rate and rhythm. No murmur. ABDOMEN: Soft. Less distended. Bowel sounds are present. No masses. No tenderness. EXTREMITIES: No pedal edema. No calf tenderness. NEUROLOGICAL: Patient is awake, alert and oriented x2-3. Cranial nerves 2 through 12 are grossly intact. Please refer to medication reconciliation sheet for a list of medications. The impression and plan of care has been dictated by Domi Goncalves, Nurse Pr actitioner as directed. Dr. Haris MD I have performed a history and examination and MDM of this patient, discussed the same with the dictator, and agree with the dictator's assessment and plan as written ,documented as a scribe. Based on total visit time, I have performed more than 50% of the visit. Patient Condition at Discharge: Fair Plan - Discharge Summary Discharge Rx Participant: No New Discharge Prescriptions: New Ibuprofen [Advil] 200 mg PO TID PRN tab PRN Reason: Pain Continue FLUoxetine HCL [PROzac] 40 mg PO DAILY Pantoprazole Sodium [Protonix] 40 mg PO DAILY PRN #60 tab PRN Reason: Heartburn Spironolactone [Aldactone] 100 mg PO DAILY #30 tab Furosemide [Lasix] 20 mg PO DAILY #30 tab Potassium Chloride ER [K-Dur 10] 10 meq PO DAILY Thiamine [Vitamin B-1] 100 mg PO DAILY Lactulose [Cephulac] 30 gm PO TID #120 ml Ubidecarenone [Coenzyme Q10] 100 mg PO DAILY Phytonadione Oral [Vitamin K Oral] 5 mg PO DAILY #15 ml levETIRAcetam [Keppra] 500 mg PO Q12HR #60 tab Midodrine [ProAmatine] 5 mg PO AC-TID #90 tab Discharge Medication List FLUoxetine HCL [PROzac] 40 mg PO DAILY 10/01/22 [History] Potassium Chloride ER [K-Dur 10] 10 meq PO DAILY 10/01/22 [History] Thiamine [Vitamin B-1] 100 mg PO DAILY 10/01/22 [History] Lactulose [Cephulac] 30 gm PO TID #120 ml 10/04/22 [Rx] Ubidecarenone [Coenzyme Q10] 100 mg PO DAILY 12/02/22 [History] Phytonadione Oral [Vitamin K Oral] 5 mg PO DAILY #15 ml 12/04/22 [Rx] Midodrine [ProAmatine] 5 mg PO AC-TID #90 tab 01/05/23 [Rx] Pantoprazole Sodium [Protonix] 40 mg PO DAILY PRN #60 tab 01/05/23 [Rx] levETIRAcetam [Keppra] 500 mg PO Q12HR #60 tab 01/05/23 [Rx] Furosemide [Lasix] 20 mg PO DAILY #30 tab 01/15/23 [Rx] Spironolactone [Aldactone] 100 mg PO DAILY #30 tab 01/15/23 [Rx] Ibuprofen [Advil] 200 mg PO TID PRN tab 02/10/23 [Rx] Follow up Appointment(s)/Referral(s): [facility], [NON-STAFF] - 1 Week Nonstaff,Physician [REFERRING] - 1-2 days Activity/Diet/Wound Care/Special Instructions: [place] [address] [facility], [id number] [place] [address] Center: [facility] After-hours Patient to follow-up with primary care provider at discharge Continue taking medications as prescribed Follow-up labs ordered Continue to avoid all alcohol intake Follow-up GI outpatient Discharge Disposition: HOME WITH HOME HEALTH SERVICES
[2023-02-10 13:37] VITALS: BP 118/61; PULSE 59; RESP 15; TEMP 97.6
== END 2023-02-10 13:24 | disposition home health service (06) | DRG 280 ==
LOC: EC 02:00 → 6NMEDSUR 07:11 → OBSVTOIN 07:12 → 6NMEDSUR 11:01
PROVIDERS: ADMIT Hospitalist; ATTEND Hospitalist
PROC: 30233N1 Transfusion of Nonautologous Red Blood Cells into Peripheral Vein, Percutaneous Approach (ICD-10-PCS; 2023-02-01)
PROC: 30233J1 Transfusion of Nonautologous Serum Albumin into Peripheral Vein, Percutaneous Approach (ICD-10-PCS; 2023-02-08)
PROC: 0W9G3ZZ Drainage of Peritoneal Cavity, Percutaneous Approach (ICD-10-PCS; principal; 2023-02-09)
PROC: 30233K1 Transfusion of Nonautologous Frozen Plasma into Peripheral Vein, Percutaneous Approach (ICD-10-PCS; 2023-02-09)
PROC: 30233R1 Transfusion of Nonautologous Platelets into Peripheral Vein, Percutaneous Approach (ICD-10-PCS; 2023-02-09)
DX: K70.31 Alcoholic cirrhosis of liver with ascites (principal); D69.6 Thrombocytopenia, unspecified; D68.4 Acquired coagulation factor deficiency; K72.10 Chronic hepatic failure without coma; F31.9 Bipolar disorder, unspecified; E87.1 Hypo-osmolality and hyponatremia; D63.8 Anemia in other chronic diseases classified elsewhere; F10.11 Alcohol abuse, in remission; J45.909 Unspecified asthma, uncomplicated; E87.6 Hypokalemia; E87.70 Fluid overload, unspecified; I49.1 Atrial premature depolarization; D75.89 Other specified diseases of blood and blood-forming organs; F41.9 Anxiety disorder, unspecified; F17.210 Nicotine dependence, cigarettes, uncomplicated; R04.0 Epistaxis; Z53.8 Procedure and treatment not carried out for other reasons; Z88.0 Allergy status to penicillin; Z88.2 Allergy status to sulfonamides; Z91.018 Allergy to other foods; Z79.899 Other long term (current) drug therapy; Z86.69 Personal history of other diseases of the nervous system and sense organs
CPT/HCPCS: 36410; 36415; 49083; 76705; 76937; 80048; 80053; 82140; 83605; 83735; 84132; 84484; 85025; 85027; 85049; 85610; 85730; 86850; 86900; 86901; 86920; 93005; 99285

== ENCOUNTER → 2023-02-12 | Outpatient (CLI) | payer OTHER ==
[2023-02-12 17:10] LABS: INR 2.3 (<1.2); Prothrombin Time 22.7 sec (10.0-12.5)
[2023-02-13 03:41] LABS: ALT 37 U/L (8-44); AST 54 U/L (13-35); Albumin 3.3 g/dL (3.8-4.9); Albumin/Globulin Ratio 1.43 Ratio (1.60-3.17); Alkaline Phosphatase 129 U/L (41-126); BUN/Creat Ratio 9.89 Ratio (12.00-20.00); Blood Urea Nitrogen 8.9 mg/dL (9.0-27.0); Calcium 8.9 mg/dL (8.7-10.3); Carbon Dioxide 21.5 mmol/L (21.6-31.8); Chloride 96 mmol/L (96-109); Globulin 2.3 g/dL (1.6-3.3); Glucose 102 mg/dL (70-110); Potassium 3.9 mmol/L (3.5-5.5); Sodium 130 mmol/L (135-145); Total Bilirubin 19.8 mg/dL (0.3-1.2); Total Protein 5.6 g/dL (6.2-8.2)
== END | disposition home or self-care (01) ==
LOC: LABWHC1 14:55
PROVIDERS: ATTEND Registered Nurse
DX: K74.69 Other cirrhosis of liver (principal); K76.9 Liver disease, unspecified
CPT/HCPCS: 36415; 80053; 85610

== ENCOUNTER 2023-02-27 09:46 | Inpatient (IN) | payer OTHER ==
--- NOTE | 2023-02-27 10:24 | ED ---
Abdominal Pain HPI - General Source: patient, family, RN notes reviewed Mode of arrival: ambulatory Limitations: no limitations <Ute Camara - Last Filed: 02/27/23 10:22> <Ana Fair - Last Filed: 02/27/23 16:09> - General Chief Complaint: Abdominal Pain Stated Complaint: dizziness Time Seen by Provider: 02/27/23 10:22 - History of Present Illness Initial Comments: Patient is a 50-year-old female presented to ER with chief complaint of dizziness and shortness of breath. Patient is currently being treated for liver failure. Patient was sent in by PCP due to increase in swelling and shortness of breath. Patient denies any fevers, chills, night sweats. Patient underwent a paracentesis about 2 and half weeks ago. (Ute Camara) 52-year-old female with past medical history of alcoholic liver cirrhosis who presents to the emergency department from her primary care office. Dr. Gutierrez does call the emergency department and states that she is sending the patient into the hospital for hypoxia. She does have a history of liver failure and showed up in the office today. She was having complaints of shortness of breath and found her oxygen level to be 88%. Patient was diffusely swollen with pitting edema in her lower extremities. She has also had increase in her abdo griselda girth. Patient has been taking her Lasix 20 mg and spironolactone as directed without any missed doses. She last had a paracentesis approximately 2 weeks ago. She follows with Dr. Oliveira. Denies following with any other facility. States she is not on the transplant list. States she has not drank since December of last year. She denies any bleeding. No other alleviating, precipitating or modifying factors (Ana Fair) - Related Data Home Medications Medication Instructions Recorded Confirmed FLUoxetine HCL [PROzac] 40 mg PO DAILY 10/01/22 02/27/23 Potassium Chloride ER [K-Dur 10] 10 meq PO DAILY 10/01/22 02/27/23 Thiamine [Vitamin B-1] 100 mg PO DAILY 10/01/22 02/27/23 Ubidecarenone [Coenzyme Q10] 100 mg PO DAILY 12/02/22 02/27/23 Pantoprazole Sodium [Protonix] 40 mg PO DAILY 02/27/23 02/27/23 Previous Rx's Medication Instructions Recorded Lactulose [Cephulac] 30 gm PO TID #120 ml 10/04/22 Phytonadione Oral [Vitamin K Oral] 5 mg PO DAILY #15 ml 12/04/22 Midodrine [ProAmatine] 5 mg PO AC-TID #90 tab 01/05/23 levETIRAcetam [Keppra] 500 mg PO Q12HR #60 tab 01/05/23 Furosemide [Lasix] 20 mg PO DAILY #30 tab 01/15/23 Spironolactone [Aldactone] 100 mg PO DAILY #30 tab 01/15/23 Ibuprofen [Advil] 200 mg PO TID PRN tab 02/10/23 Allergies Allergy/AdvReac Type Severity Reaction Status Date / Time Penicillins Allergy Swelling Verified 02/27/23 12:16 tongue Sulfa (Sulfonamide Allergy Swelling Verified 02/27/23 12:16 Antibiotics) tongue walnut Allergy Anaphylaxis Verified 02/27/23 12:16 Review of Systems ROS Other: All systems not noted in ROS Statement are negative. <Ute Camara - Last Filed: 02/27/23 10:22> ROS Other: All systems not noted in ROS Statement are negative. <Ana Fair - Last Filed: 02/27/23 16:09> ROS Statement: Those systems with pertinent positive or pertinent negative responses have been documented in the HPI. Past Medical History Past Medical History: Asthma, Liver Disease Additional Past Medical History / Comment(s): ascites,paracentesis 12/28/22, low platelets, previous ETOH abuse History of Any Multi-Drug Resistant Organisms: None Reported Past Surgical History: No Surgical Hx Reported Additional Past Surgical History / Comment(s): repair to spleen [place] Ruptured spleen in 1988 Past Anesthesia/Blood Transfusion Reactions: No Reported Reaction Additional Past Anesthesia/Blood Transfusion Reaction / Comment(s): Unsure if had blood transfusion in past Past Psychological History: Anxiety, Bipolar, Depression Smoking Status: Current every day smoker Past Alcohol Use History: None Reported Past Drug Use History: None Reported - Past Family History Sister(s) Additional Family Medical History / Comment(s): closed head injury Mother Family Medical History: Diabetes Mellitus, Hyperlipidemia <Ute Camara - Last Filed: 02/27/23 10:22> General Exam Limitations: no limitations <Ute Camara - Last Filed: 02/27/23 10:22> General appearance: alert, in no apparent distress Head exam: Present: atraumatic, normocephalic, normal inspection Eye exam: Present: scleral icterus ENT exam: Present: mucous membranes dry Neck exam: Present: normal inspection. Absent: tenderness, meningismus, lymphadenopathy Respiratory exam: Present: normal lung sounds bilaterally. Absent: respiratory distress, wheezes, rales, rhonchi, stridor Cardiovascular Exam: Present: tachycardia GI/Abdominal exam: Present: distended, other (Ascites) Neurological exam: Present: alert, oriented X3, CN II-XII intact Psychiatric exam: Present: normal affect, normal mood Skin exam: Present: other (Jaundice) <Ana Fair - Last Filed: 02/27/23 16:09> - General Exam Comments Initial Comments: Visual Physical Exam Vital signs reviewed General: Well-appearing, nontoxic, no acute distress. Head: Normocephalic, atraumatic Eyes: PERRLA, EOMI ENT: Airway patent Chest: Nonlabored breathing Skin: No visual rash, normal skin tone Neuro: Alert and oriented 3 Musculoskeletal: No gross abnormalities (Ute Camara) Course Vital Signs 02/27/23 02/27/23 02/27/23 10:07 13:00 14:00 Temperature 98.3 F 97.8 F 98.1 F Pulse Rate 110 H 109 H 108 H Respiratory 22 18 24 Rate Blood Pressure 104/66 95/55 103/63 O2 Sat by Pulse 96 96 Oximetry Medical Decision Making <Ute Camara - Last Filed: 02/27/23 10:22> - Lab Data Result diagrams: 02/27/23 10:28 02/27/23 10:28 <Ana Fair - Last Filed: 02/27/23 16:09> - Medical Decision Making I performed the quick note portion of the exam. Electronically signed by Ute Camara PA-C (Ute Camara) Was pt. sent in by a medical professional or institution ([facility], [facility], urgent care, hospital, or skilled nursing...) When possible be specific @ -Patient was sent in by her primary care office Did you speak to anyone other than the patient for history (EMS, parent, family, police, friend...)? What history was obtained from this source @ -I spoke with Dr. Gutierrez for the history Did you review nursing and triage notes (agree or disagree)? Why? @ -I reviewed and agree with nursing and triage notes Were old charts reviewed (outside hosp., previous admission, EMS record, old EKG, old radiological studies, urgent care reports/EKG's, skilled nursing records)? Report findings @ -I reviewed patient's last discharge summary from 2 weeks ago where she was hospitalized and had a paracentesis Differential Diagnosis (chest pain, altered mental status, abdominal pain women, abdominal pain men, vaginal bleeding, weakness, fever, dyspnea, syncope, headache, dizziness, GI bleed, back pain, seizure, CVA, palpatations, mental health, musculoskeletal)? @ -Differential Dyspnea: Coronary syndrome, arrhythmia, tamponade, asthma, COPD, pulmonary embolism, pneumonia, pneumothorax, pulmonary effusion, anaphylaxis, diabetic ketoacidosis, flailed chest, pulmonary contusion, diaphragmatic rupture, anemia, neuromuscular, this is not meant to be an all-inclusive list. EKG interpreted by me (3pts min.). @ -Not done X-rays interpreted by me (1pt min.). @ -yes and demonstrates diffuse interstitial pattern CT interpreted by me (1pt min.). @ -None done U/S interpreted by me (1pt. min.). @ -None done What testing was considered but not performed or refused? (CT, X-rays, U/S, labs)? Why? @ -None What meds were considered but not given or refused? Why? @ -None Did you discuss the management of the patient with other professionals (professionals i.e. , PA, [facility], lab, RT, psych nurse, foster care social worker, semiconductor packages platemaker, teacher, residential care officer, case packer and sealer)? Give summary @ -I spoke with Dr. Oliveira. States that she does not do paracenteses and therefore we must contact IR. I spoke with the IR nurse. States that the patient required platelets previous to her last paracentesis. States that she required several days to become stable enough to have the procedure performed. States that they would not be able to do the procedure today or this weekend as platelets have to be shipped in. She is recommending hospital admission and asked that I order the patient some platelets. I then spoke with Dr. Howell who agreed to admit the patient Was smoking cessation discussed for >3mins.? @ -No Was critical care preformed (if so, how long)? @ -Yes for transfusion of blood products Were there social determinants of health that impacted care today? How? (Homelessness, low income, unemployed, alcoholism, drug addiction, transportation, low edu. Level, literacy, decrease access to med. care, alf, rehab)? @ -No Was there de-escalation of care discussed even if they declined (Discuss DNR or withdrawal of care, Hospice)? DNR status @ -No What co-morbidities impacted this encounter? (DM, HTN, Smoking, COPD, CAD, Cancer, CVA, ARF, Chemo, Hep., AIDS, mental health diagnosis, sleep apnea, morbid obesity)? @ -Liver cirrhosis Was patient admitted / discharged? Hospital course, mention meds given and route , prescriptions, significant lab abnormalities, going to OR and other pertinent info. @ -Admitted. Upon arrival patient placed in the hallway 10. Laboratory studies are obtained. Chest and abdominal x-ray are performed. I discussed the patient's care with the IR nurse. Patient will have to be admitted for platelet transfusion and paracentesis on Thursday. Patient cannot go home due to hypoxia and increased work of breathing therefore we'll attempt to diurese the patient at this time. We'll order patient's platelets at this time so they can be shipped in Undiagnosed new problem with uncertain prognosis? @ -No Drug Therapy requiring intensive monitoring for toxicity (Heparin, Nitro, Insulin, Cardizem)? @ -No Were any procedures done? @ -No Diagnosis/symptom? @ -Acute respiratory insufficiency, acute volume overload, liver cirrhosis and failure, massive abdominal ascites, chronic thrombocytopenia Acute, or Chronic, or Acute on Chronic? @ -Acute Uncomplicated (without systemic symptoms) or Complicated (systemic symptoms)? @ - complicated Side effects of treatment? @ -No Exacerbation, Progression, or Severe Exacerbation? @ -Yes Poses a threat to life or bodily function? How? (Chest pain, [place], [place], pneumonia, PE, COPD, DKA, ARF, appy, cholecystitis, CVA, Diverticulitis, Homicidal, Suicidal, threat to staff... and all critical care pts) @ -Yes it was reported that the patient was hypoxic in office (Ana Fair) - Lab Data Lab Results 02/27/23 02/27/23 02/27/23 Range/Units 10:28 10:28 10:28 WBC 8.3 (3.8-10.6) k/uL RBC 1.95 L (3.80-5.40) m/uL Hgb 8.2 L (11.4-16.0) gm/dL Hct 24.0 L (34.0-46.0) % MCV 123.2 H (80.0-100.0) fL MCH 42.1 H (25.0-35.0) pg MCHC 34.2 (31.0-37.0) g/dL RDW 18.8 H (11.5-15.5) % Plt Count 34 L (150-450) k/uL MPV 9.8 Neutrophils % 73 % Lymphocytes % 9 % Monocytes % 12 % Eosinophils % 2 % Basophils % 0 % Neutrophils # 6.1 (1.3-7.7) k/uL Lymphocytes # 0.8 L (1.0-4.8) k/uL Monocytes # 1.0 (0-1.0) k/uL Eosinophils # 0.1 (0-0.7) k/uL Basophils # 0.0 (0-0.2) k/uL Manual Slide Review Performed Polychromasia Present Hypochromasia Slight Poikilocytosis Moderate Anisocytosis Slight Macrocytosis Marked A Sodium 131 L (137-145) mmol/L Potassium 4.9 (3.5-5.1) mmol/L Chloride 99 (98-107) mmol/L Carbon Dioxide 20 L (22-30) mmol/L Anion Gap 12 mmol/L BUN 14 (7-17) mg/dL Creatinine 0.90 (0.52-1.04) mg/dL Est GFR (CKD-EPI)AfAm 85 (>60 ml/min/1.73 sqM) Est GFR (CKD-EPI)NonAf 74 (>60 ml/min/1.73 sqM) Glucose 92 (74-99) mg/dL Lactic Ac Sepsis Rflx Plasma Lactic Acid Heladio 3.0 H* (0.7-2.0) mmol/L Calcium 8.6 (8.4-10.2) mg/dL Total Bilirubin 23.3 H* (0.2-1.3) mg/dL AST 61 H (14-36) U/L ALT 38 H (4-34) U/L Alkaline Phosphatase 162 H (38-126) U/L Total Protein 7.6 (6.3-8.2) g/dL Albumin 3.3 L (3.5-5.0) g/dL Amylase 77 (30-110) U/L Lipase 250 (23-300) U/L 02/27/23 Range/Units 12:03 WBC (3.8-10.6) k/uL RBC (3.80-5.40) m/uL Hgb (11.4-16.0) gm/dL Hct (34.0-46.0) % MCV (80.0-100.0) fL MCH (25.0-35.0) pg MCHC (31.0-37.0) g/dL RDW (11.5-15.5) % Plt Count (150-450) k/uL MPV Neutrophils % % Lymphocytes % % Monocytes % % Eosinophils % % Basophils % % Neutrophils # (1.3-7.7) k/uL Lymphocytes # (1.0-4.8) k/uL Monocytes # (0-1.0) k/uL Eosinophils # (0-0.7) k/uL Basophils # (0-0.2) k/uL Manual Slide Review Polychromasia Hypochromasia Poikilocytosis Anisocytosis Macrocytosis Sodium (137-145) mmol/L Potassium (3.5-5.1) mmol/L Chloride (98-107) mmol/L Carbon Dioxide (22-30) mmol/L Anion Gap mmol/L BUN (7-17) mg/dL Creatinine (0.52-1.04) mg/dL Est GFR (CKD-EPI)AfAm (>60 ml/min/1.73 sqM) Est GFR (CKD-EPI)NonAf (>60 ml/min/1.73 sqM) Glucose (74-99) mg/dL Lactic Ac Sepsis Rflx Y Plasma Lactic Acid Heladio (0.7-2.0) mmol/L Calcium (8.4-10.2) mg/dL Total Bilirubin (0.2-1.3) mg/dL AST (14-36) U/L ALT (4-34) U/L Alkaline Phosphatase (38-126) U/L Total Protein (6.3-8.2) g/dL Albumin (3.5-5.0) g/dL Amylase (30-110) U/L Lipase (23-300) U/L Disposition <Ute Camara - Last Filed: 02/27/23 10:22> Is patient prescribed a controlled substance at d/c from ED?: No Time of Disposition: 13:29 Decision to Admit Reason: Admit from EC Decision Date: 02/27/23 Decision Time: 13:29 <Ana Fair - Last Filed: 02/27/23 16:09> Clinical Impression: Ascites, Thrombocytopenia, Cirrhosis of liver, Decompensation of cirrhosis of liver, Acute respiratory insufficiency Disposition: ADMITTED IP TO THIS HOSP Condition: Stable
[2023-02-27 11:38] LABS: ALT 38 U/L (4-34); AST 61 U/L (14-36); African American GFR (CKD) 85 (>60 ml/min/1.73 sqM); Albumin 3.3 g/dL (3.5-5.0); Amylase 77 U/L (30-110); Anion Gap 12 mmol/L; Blood Urea Nitrogen 14 mg/dL (7-17); Calcium 8.6 mg/dL (8.4-10.2); Carbon Dioxide 20 mmol/L (22-30); Chloride 99 mmol/L (98-107); Glucose 92 mg/dL (74-99); Lipase 250 U/L (23-300); Non-African American GFR(CKD) 74 (>60 ml/min/1.73 sqM); Potassium 4.9 mmol/L (3.5-5.1); Sodium 131 mmol/L (137-145)
[2023-02-27 11:50] LABS: Anisocytosis Slight; Basophils % (A) 0 %; Eosinophils # (A) 0.1 k/uL (0-0.7); Eosinophils % (A) 2 %; HGB 8.2 gm/dL (11.4-16.0); Hypochromasia Slight; Lymphocytes # (A) 0.8 k/uL (1.0-4.8); Lymphocytes % (A) 9 %; MCHC 34.2 g/dL (31.0-37.0); MCV 123.2 fL (80.0-100.0); Macrocytosis Marked; Mean Platelet Volume 9.8; Monocytes % (A) 12 %; Neutrophils # (A) 6.1 k/uL (1.3-7.7); Neutrophils % (A) 73 %; Poikilocytosis Moderate; RBC 1.95 m/uL (3.80-5.40); RDW 18.8 % (11.5-15.5); WBC 8.3 k/uL (3.8-10.6)
[2023-02-27 11:54] LABS: MCH 42.1 pg (25.0-35.0)
[2023-02-27 12:02] LABS: Alkaline Phosphatase 162 U/L (38-126); Total Bilirubin 23.3 mg/dL (0.2-1.3); Total Protein 7.6 g/dL (6.3-8.2)
[2023-02-27] MEDS ORDERED: MIDODRINE 5 MG TAB PO SCH (13:10)
--- NOTE | 2023-02-27 13:10 | XR ---
EXAMINATION TYPE: XR chest 2V DATE OF EXAM: 02/27/2023 COMPARISON: 12/31/2022 TECHNIQUE: PA and lateral views submitted. HISTORY: Shortness of breath FINDINGS: Reduced inspiration with left lower lobe consolidation and small effusion. Diffuse interstitial patte rn. Heart size borderline. Diffuse osteopenia and degenerative change of the spine. IMPRESSION: 1. Diffuse interstitial pattern with left lower lobe infiltrate. Correlate for CHF otherwise consider pneumonia..
--- NOTE | 2023-02-27 13:11 | XR ---
EXAMINATION TYPE: XR KUB DATE OF EXAM: 02/27/2023 1:05 PM CLINICAL INDICATION:Female, 52 years old with history of abdominal pain; [facility] COMPARISON: 02/14/2020 TECHNIQUE: One radiographic view of the abdomen was obtained. FINDINGS: The bowel gas pattern is nonspecific without dilated loops of small or large bowel. There i s no evidence for organomegaly or pneumoperitoneum. The osseous structures are intact. Fecal materi al and gas are demonstrated throughout the colon and rectum. Upper quadrant probable gallstone, sludge or gallstones. IMPRESSION: Nonspecific bowel gas pattern without radiographic evidence for acute process.
[2023-02-27] MEDS ORDERED: levETIRAcetam 500 MG TAB PO SCH (13:15)
[2023-02-27] MEDS ORDERED: PHYTONADIONE ORAL 5 MG/5 ML ORAL.SYRG PO SCH (13:15)
[2023-02-27] MEDS ORDERED: ONDANSETRON 4 MG/2 ML VIAL IVP PRN (13:32)
[2023-02-27] MEDS ORDERED: NALOXONE 0.4 MG/ML 1 ML VIAL IV PRN ×2 (13:32→13:33)
[2023-02-27 13:56] LABS: Platelet Count 34 k/uL (150-450)
[2023-02-27 14:07] LABS: Polychromasia Present
[2023-02-27] MEDS: PANTOPRAZOLE 40 MG TABLET PO SCH (14:53)
[2023-02-27] MEDS: THIAMINE 100 MG TAB PO SCH (14:54)
--- NOTE | 2023-02-27 15:03 | P.HPIM ---
History of Present Illness H&P Date: 02/27/23 Chief Complaint: Abdominal distention * 52-year-old lady with past medical history significant for decompensated liver cirrhosis, alcohol liver disease, history of alcohol use disorder, asthma, anxiety, depression, bipolar disorder, chronic anemia presents to the emergency department with complains of abdominal distention. Patient was recently admitted in the hospital from 01/31/2023 discharge on 02/10/2023 patient had high-volume paracentesis completed on 02/10 with 9.6 L of fluid removed. Patient presents with complains of shortness of breath and dizziness. Patient was sent in from her PCP office secondary to increased lower extremity swelling and shortness of breath ,She has patient has followed up with gastroenterology Dr. Alcantar. * Workup in ER included CBC which were WBC of 8.3 hemoglobin 8.2 platelet count of 34,000. Serum chemistry obtained sodium 131 potassium 4.9 carbon dioxide 20 B UN 14 creatinine 0.9 plasma lactate of 3, total bilirubin of 23 AST of 61 a LT of 38 albumin of 3.3 * Patient has decompensated liver cirrhosis, with recurrent hospitalization, since September 2022 this is her 6th hospitalization. Her prognosis remains guarded was discussed with patient as well secondary to worsening liver cirrhosis REVIEW OF SYSTEMS: Weakness, lower extremity swelling, abdominal distention CONSTITUTIONAL: No fever, no malaise, no fatigue. HEENT: No recent visual problems or hearing problems. Denied any sore throat. CARDIOVASCULAR: No chest pain, orthopnea, PND, no palpitations, no syncope. PULMONARY: No shortness of breath, no cough, no hemoptysis. GASTROINTESTINAL: Weakness, lower extremity swelling, abdominal distention NEUROLOGICAL: No headaches, no weakness, no numbness. HEMATOLOGICAL: Denies any bleeding or petechiae. GENITOURINARY: Denies any burning micturition, frequency, or urgency. MUSCULOSKELETAL/RHEUMATOLOGICAL: Denies any joint pain, swelling, or any muscle pain. ENDOCRINE: Denies any polyuria or polydipsia. The rest of the 14-point review of systems is negative. PHYSICAL EXAMINATION: GENERAL: The patient is alert and oriented x3, deconditioned, chronically ill, yellow discoloration, Pale HEENT: Pupils are round and equally reacting to light. EOMI. scleral icterus. CARDIOVASCULAR: S1 and S2 present. No murmurs, rubs, or gallops. PULMONARY: Chest is clear to auscultation, no wheezing or crackles. ABDOMEN: Soft, nontender, distended, nontender on palpation MUSCULOSKELETAL: No joint swelling or deformity. EXTREMITIES: pedal edema. NEUROLOGICAL: Gross neurological examination did not reveal any focal deficits. Past Medical History Past Medical History: Asthma, Liver Disease Additional Past Medical History / Comment(s): ascites,paracentesis 12/28/22, low platelets, previous ETOH abuse History of Any Multi-Drug Resistant Organisms: None Reported Past Surgical History: No Surgical Hx Reported Additional Past Surgical History / Comment(s): repair to spleen [place] Ruptured spleen in 1988 Past Anesthesia/Blood Transfusion Reactions: No Reported Reaction Additional Past Anesthesia/Blood Transfusion Reaction / Comment(s): Unsure if had blood transfusion in past Past Psychological History: Anxiety, Bipolar, Depression Smoking Status: Current every day smoker Past Alcohol Use History: None Reported Past Drug Use History: None Reported - Past Family History Sister(s) Additional Family Medical History / Comment(s): closed head injury Mother Family Medical History: Diabetes Mellitus, Hyperlipidemia Medications and Allergies Home Medications Medication Instructions Recorded Confirmed Type FLUoxetine HCL [PROzac] 40 mg PO DAILY 10/01/22 02/27/23 History Potassium Chloride ER [K-Dur 10] 10 meq PO DAILY 10/01/22 02/27/23 History Thiamine [Vitamin B-1] 100 mg PO DAILY 10/01/22 02/27/23 History Lactulose [Cephulac] 30 gm PO TID #120 ml 10/04/22 02/27/23 Rx Ubidecarenone [Coenzyme Q10] 100 mg PO DAILY 12/02/22 02/27/23 History Phytonadione Oral [Vitamin K Oral] 5 mg PO DAILY #15 ml 12/04/22 02/27/23 Rx Midodrine [ProAmatine] 5 mg PO AC-TID #90 tab 01/05/23 02/27/23 Rx levETIRAcetam [Keppra] 500 mg PO Q12HR #60 tab 01/05/23 02/27/23 Rx Furosemide [Lasix] 20 mg PO DAILY #30 tab 01/15/23 02/27/23 Rx Spironolactone [Aldactone] 100 mg PO DAILY #30 tab 01/15/23 02/27/23 Rx Ibuprofen [Advil] 200 mg PO TID PRN tab 02/10/23 02/27/23 Rx Pantoprazole Sodium [Protonix] 40 mg PO DAILY 02/27/23 02/27/23 History Allergies Allergy/AdvReac Type Severity Reaction Status Date / Time Penicillins Allergy Swelling Verified 02/27/23 12:16 tongue Sulfa (Sulfonamide Allergy Swelling Verified 02/27/23 12:16 Antibiotics) tongue walnut Allergy Anaphylaxis Verified 02/27/23 12:16 Physical Exam Vitals: Vital Signs Temp Pulse Resp BP Pulse Ox 02/27/23 13:00 97.8 F 109 H 18 95/55 02/27/23 10:07 98.3 F 110 H 22 104/66 96 Intake and Output 02/26/23 02/27/23 02/27/23 22:59 06:59 14:59 Other: Weight 75.296 kg Results CBC & Chem 7: 02/27/23 10:28 02/27/23 10:28 Labs: Abnormal Lab Results - Last 24 Hours (Table) 02/27/23 02/27/23 02/27/23 Range/Units 10:28 10:28 10:28 RBC 1.95 L (3.80-5.40) m/uL Hgb 8.2 L (11.4-16.0) gm/dL Hct 24.0 L (34.0-46.0) % MCV 123.2 H (80.0-100.0) fL MCH 42.1 H (25.0-35.0) pg RDW 18.8 H (11.5-15.5) % Plt Count 34 L (150-450) k/uL Lymphocytes # 0.8 L (1.0-4.8) k/uL Macrocytosis Marked A Sodium 131 L (137-145) mmol/L Carbon Dioxide 20 L (22-30) mmol/L Plasma Lactic Acid Heladio 3.0 H* (0.7-2.0) mmol/L Total Bilirubin 23.3 H* (0.2-1.3) mg/dL AST 61 H (14-36) U/L ALT 38 H (4-34) U/L Alkaline Phosphatase 162 H (38-126) U/L Albumin 3.3 L (3.5-5.0) g/dL Thrombosis Risk Factor Assmnt - DVT/VTE Prophylaxis DVT/VTE Prophylaxis: Mechanical Prophylaxis ordered Assessment and Plan Assessment: Assessment and plan * Decompensated liver cirrhosis with history of alcohol liver disease * Hyperbilirubinemia secondary to cirrhosis, recurrent ascites * Lactic acidosis likely hepatic in origin * Seizure disorder with history of breakthrough seizures * Coagulopathy with elevated INR secondary to hepatic disease * Chronic thrombocytopenia * Chronic anemia * In regards to decompensated liver cirrhosis, IR consulted for paracentesis, patient started on IV albumin, IV vitamin K follow-up on liver profile on IV Lasix * In regards to seizure disorder continue patient on Keppra * In regards to chronic thrombocytopenia, maintain thrombocytopenia precautions * Continue patient on Lasix, >>Aldactone on hold secondary to hypotension * Continue Midrin for blood pressure support * Continue to follow up on hemoglobin * SCDs for DVT prophylaxis * Protonix for GI prophylaxis * CODE STATUS is full code * Prognosis remains extremely guarded secondary to underlying liver disease Time with Patient: Greater than 30
[2023-02-27 15:13] LABS: INR 2.4 (<1.2); Prothrombin Time 23.5 sec (10.0-12.5)
[2023-02-27] MEDS ORDERED: FUROSEMIDE 10 MG/ML 4 ML VIAL IV SCH (15:15)
[2023-02-27] MEDS: PHYTONADIONE 5 MG in SODIUM CHLORIDE 0.9% 50 ML IVPB SCH (16:08)
[2023-02-27] MEDS: ALBUMIN HUMAN 25% 50 ML in EMPTY BAG 1 BAG IVPB SCH ×2 (16:59→18:50)
[2023-02-27] MEDS: MIDODRINE 5 MG TAB PO SCH (18:41)
[2023-02-27] MEDS: LACTULOSE 20 GM/30 ML CUP PO SCH ×2 (18:44→23:45)
[2023-02-27] MEDS: levETIRAcetam 500 MG TAB PO SCH (23:45)
[2023-02-28] MEDS ORDERED: FUROSEMIDE 20 MG TAB PO SCH (09:00)
[2023-02-28] MEDS: FLUoxetine HCL 20 MG CAP PO SCH (10:11)
[2023-02-28] MEDS: MIDODRINE 5 MG TAB PO SCH ×3 (10:12→17:02)
[2023-02-28] MEDS: PANTOPRAZOLE 40 MG TABLET PO SCH (10:12)
[2023-02-28] MEDS: FUROSEMIDE 40 MG TAB PO SCH (10:12)
[2023-02-28] MEDS: THIAMINE 100 MG TAB PO SCH (10:12)
[2023-02-28] MEDS: levETIRAcetam 500 MG TAB PO SCH ×2 (10:12→20:32)
[2023-02-28] MEDS: LACTULOSE 20 GM/30 ML CUP PO SCH ×3 (10:13→20:32)
[2023-02-28 11:11] LABS: ALT 31 U/L (4-34); AST 52 U/L (14-36); African American GFR (CKD) 84 (>60 ml/min/1.73 sqM); Albumin 2.9 g/dL (3.5-5.0); Albumin/Globulin Ratio 0.8; Alkaline Phosphatase 118 U/L (38-126); Anion Gap 11 mmol/L; Blood Urea Nitrogen 16 mg/dL (7-17); Calcium 8.3 mg/dL (8.4-10.2); Carbon Dioxide 23 mmol/L (22-30); Chloride 101 mmol/L (98-107); Globulin 3.6 g/dL; Glucose 74 mg/dL (74-99); Non-African American GFR(CKD) 73 (>60 ml/min/1.73 sqM); Potassium 3.4 mmol/L (3.5-5.1); Sodium 135 mmol/L (137-145); Total Protein 6.5 g/dL (6.3-8.2)
[2023-02-28 11:14] LABS: Total Bilirubin 21.1 mg/dL (0.2-1.3)
[2023-02-28 11:25] LABS: INR 2.4 (<1.2); Prothrombin Time 23.6 sec (10.0-12.5)
[2023-02-28 12:24] LABS: Anisocytosis Slight; HGB 7.3 gm/dL (11.4-16.0); Hypochromasia Slight; Macrocytosis Marked; Mean Platelet Volume 8.8; Platelet Count 27 k/uL (150-450); Poikilocytosis Moderate; RBC 1.68 m/uL (3.80-5.40); RDW 18.5 % (11.5-15.5); WBC 5.9 k/uL (3.8-10.6)
[2023-02-28 12:25] LABS: MCV 124.9 fL (80.0-100.0)
[2023-02-28 12:26] LABS: MCH 43.7 pg (25.0-35.0)
[2023-02-28] MEDS ORDERED: FLUTICASONE 50MCG/SPRAY NASAL 16GM EA NOSTRIL PRN (12:30)
--- NOTE | 2023-02-28 12:34 | P.PN ---
Subjective Progress Note Date: 02/28/23 * 52-year-old lady with past medical history significant for decompensated liver cirrhosis, alcohol liver disease, history of alcohol use disorder, asthma, anxiety, depression, bipolar disorder, chronic anemia presents to the emergency department with complains of abdominal distention. Patient was recently admitted in the hospital from 01/31/2023 discharge on 02/10/2023 patient had high-volume paracentesis completed on 02/10 with 9.6 L of fluid removed. Patient presents with complains of shortness of breath and dizziness. Patient was sent in from her PCP office secondary to increased lower extremity swelling and shortness of breath ,She has patient has followed up with gastroenterology Dr. Alcantar. * Workup in ER included CBC which were WBC of 8.3 hemoglobin 8.2 platelet count of 34,000. Serum chemistry obtained sodium 131 potassium 4.9 carbon dioxide 20 B UN 14 creatinine 0.9 plasma lactate of 3, total bilirubin of 23 AST of 61 a LT of 38 albumin of 3.3 * Patient has decompensated liver cirrhosis, with recurrent hospitalization, since September 2022 this is her 6th hospitalization. Her prognosis remains guarded was discussed with patient as well secondary to worsening liver cirrhosis * 02/28/2023: Patient seen and evaluated and bedside, patient alert and oriented 3, patient noted to have low blood pressure, hemoglobin noted to be on at 7.3, 1 unit of packed RBC ordered, it led count 27, INR 2.4, sodium 135 potassium 3.4 bilirubin 21.1 AST 52 ALT 31 albumin 2.9. Care plan and CODE STATUS discussed with patient. Patient explained the morbidity of underlying condition and was explained the prognosis as well. REVIEW OF SYSTEMS: Weakness, lower extremity swelling, abdominal distention CONSTITUTIONAL: No fever, no malaise, no fatigue. HEENT: No recent visual problems or hearing problems. Denied any sore throat. CARDIOVASCULAR: No chest pain, orthopnea, PND, no palpitations, no syncope. PULMONARY: No shortness of breath, no cough, no hemoptysis. GASTROINTESTINAL: Weakness, lower extremity swelling, abdominal distention NEUROLOGICAL: No headaches, no weakness, no numbness. HEMATOLOGICAL: Denies any bleeding or petechiae. GENITOURINARY: Denies any burning micturition, frequency, or urgency. MUSCULOSKELETAL/RHEUMATOLOGICAL: Denies any joint pain, swelling, or any muscle pain. ENDOCRINE: Denies any polyuria or polydipsia. The rest of the 14-point review of systems is negative. PHYSICAL EXAMINATION: GENERAL: The patient is alert and oriented x3, deconditioned, chronically ill, yellow discoloration, Pale HEENT: Pupils are round and equally reacting to light. EOMI. scleral icterus. CARDIOVASCULAR: S1 and S2 present. Tachycardia noted PULMONARY: Chest is clear to auscultation, no wheezing or crackles. ABDOMEN: Soft, nontender, distended, nontender on palpation MUSCULOSKELETAL: No joint swelling or deformity. EXTREMITIES: pedal edema. NEUROLOGICAL: Gross neurological examination did not reveal any focal deficits. Objective - Vital Signs Vital signs: Vital Signs Temp 98.2 F 02/28/23 08:00 Pulse 102 H 02/28/23 08:00 Resp 14 02/28/23 08:00 BP 95/63 02/28/23 08:00 Pulse Ox 95 02/28/23 08:00 FiO2 Intake & Output 02/27/23 02/28/23 02/28/23 18:59 06:59 18:59 Weight 75.296 kg - Labs CBC & Chem 7: 02/28/23 08:53 02/28/23 08:53 Labs: Abnormal Lab Results - Last 24 Hours (Table) 02/27/23 02/27/23 02/27/23 Range/Units 10:28 14:16 14:24 RBC (3.80-5.40) m/uL Hgb (11.4-16.0) gm/dL Hct (34.0-46.0) % MCH (25.0-35.0) pg RDW (11.5-15.5) % Plt Count 34 L (150-450) k/uL Lymphocytes # 0.8 L (1.0-4.8) k/uL Macrocytosis PT 23.5 H (10.0-12.5) sec INR 2.4 H (<1.2) APTT 37.0 H (22.0-30.0) sec Sodium (137-145) mmol/L Potassium (3.5-5.1) mmol/L Plasma Lactic Acid Heladio 2.6 H* (0.7-2.0) mmol/L Calcium (8.4-10.2) mg/dL Total Bilirubin (0.2-1.3) mg/dL AST (14-36) U/L Albumin (3.5-5.0) g/dL 02/28/23 02/28/23 02/28/23 Range/Units 08:53 08:53 08:53 RBC 1.68 L (3.80-5.40) m/uL Hgb 7.3 L (11.4-16.0) gm/dL Hct 21.0 L (34.0-46.0) % MCH 43.7 H (25.0-35.0) pg RDW 18.5 H (11.5-15.5) % Plt Count 27 L (150-450) k/uL Lymphocytes # (1.0-4.8) k/uL Macrocytosis Marked A PT 23.6 H (10.0-12.5) sec INR 2.4 H (<1.2) APTT (22.0-30.0) sec Sodium 135 L (137-145) mmol/L Potassium 3.4 L (3.5-5.1) mmol/L Plasma Lactic Acid Heladio (0.7-2.0) mmol/L Calcium 8.3 L (8.4-10.2) mg/dL Total Bilirubin 21.1 H* (0.2-1.3) mg/dL AST 52 H (14-36) U/L Albumin 2.9 L (3.5-5.0) g/dL Assessment and Plan Assessment: Assessment and plan * Decompensated liver cirrhosis with history of alcohol liver disease * Hyperbilirubinemia secondary to cirrhosis, recurrent ascites * Lactic acidosis likely hepatic in origin * Seizure disorder with history of breakthrough seizures * Coagulopathy with elevated INR secondary to hepatic disease * Chronic thrombocytopenia * Chronic anemia * In regards to decompensated liver cirrhosis, IR consulted for paracentesis, , IV vitamin K, follow up on INR levels * In regards to seizure disorder continue patient on Keppra * In regards to chronic thrombocytopenia, maintain thrombocytopenia precautions, platelet transfusion ordered * In regards to chronic anemia, 1 unit of packed RBC ordered 02/28 * Continue patient on Lasix, >>Aldactone on hold secondary to hypotension * Continue Midodrine for blood pressure support * Continue to follow up on hemoglobin * SCDs for DVT prophylaxis * Protonix for GI prophylaxis * CODE STATUS is full code * Prognosis remains extremely guarded secondary to underlying liver disease
[2023-02-28] MEDS: POTASSIUM CHLORIDE 10 MEQ in WATER FOR INJECTION 1 100ML.BAG IVPB SCH ×2 (12:54→13:52)
--- NOTE | 2023-02-28 14:34 | CT ---
EXAMINATION TYPE: CT pelvis wo con DATE OF EXAM: 02/28/2023 COMPARISON: 02/14/2020 HISTORY: fall CT DLP: 364.3 mGycm Automated exposure control for dose reduction was used. Contrast: None Technique: Axial images 3 mm thick sections. Reconstructed images in the coronal and sagittal planes. Images were obtained with bone windows limiting evaluation of soft tissue. FINDINGS: Ascites is suspected. Soft tissue evaluation is extremely limited. Sacroiliac joints appear patent. No acute fractures pelvis are evident. Symphysis pubis is unremarkab le. Pubic rami are unremarkable. Ischio rami are normal Femoral heads articulate with the acetabulum. No acute fractures are evident within the visualized pr oximal femurs. Three-D reconstructed images are reviewed on the computer. There is degenerative disc changes posteriorly at L5-S1 and diffuse L4-5. Surgical and coccyx as visu alized appear intact. No erosion of the skin is identified on this exam. Sacrum and coccyx appear int act IMPRESSION: 1. NO ACUTE OSSEOUS ABNORMALITY PELVIS
[2023-02-28] MEDS: PHYTONADIONE 5 MG in SODIUM CHLORIDE 0.9% 50 ML IVPB SCH (18:53)
[2023-03-01] MEDS: MIDODRINE 5 MG TAB PO SCH ×3 (06:04→17:10)
[2023-03-01] MEDS: LACTULOSE 20 GM/30 ML CUP PO SCH ×3 (08:24→20:28)
[2023-03-01] MEDS: PANTOPRAZOLE 40 MG TABLET PO SCH (08:24)
[2023-03-01] MEDS: FLUoxetine HCL 20 MG CAP PO SCH (08:24)
[2023-03-01] MEDS: THIAMINE 100 MG TAB PO SCH (08:24)
[2023-03-01] MEDS: levETIRAcetam 500 MG TAB PO SCH ×2 (08:25→20:28)
[2023-03-01] MEDS: FUROSEMIDE 40 MG TAB PO SCH (08:25)
[2023-03-01] MEDS ORDERED: POTASSIUM CHLORIDE ER 20 MEQ TAB.ER PO STA (12:07)
--- NOTE | 2023-03-01 12:09 | P.PN ---
Subjective Progress Note Date: 03/01/23 * 52-year-old lady with past medical history significant for decompensated liver cirrhosis, alcohol liver disease, history of alcohol use disorder, asthma, anxiety, depression, bipolar disorder, chronic anemia presents to the emergency department with complains of abdominal distention. Patient was recently admitted in the hospital from 01/31/2023 discharge on 02/10/2023 patient had high-volume paracentesis completed on 02/10 with 9.6 L of fluid removed. Patient presents with complains of shortness of breath and dizziness. Patient was sent in from her PCP office secondary to increased lower extremity swelling and shortness of breath ,She has patient has followed up with gastroenterology Dr. Alcantar. * Workup in ER included CBC which were WBC of 8.3 hemoglobin 8.2 platelet count of 34,000. Serum chemistry obtained sodium 131 potassium 4.9 carbon dioxide 20 B UN 14 creatinine 0.9 plasma lactate of 3, total bilirubin of 23 AST of 61 a LT of 38 albumin of 3.3 * Patient has decompensated liver cirrhosis, with recurrent hospitalization, since September 2022 this is her 6th hospitalization. Her prognosis remains guarded was discussed with patient as well secondary to worsening liver cirrhosis * 02/28/2023: Patient seen and evaluated and bedside, patient alert and oriented 3, patient noted to have low blood pressure, hemoglobin noted to be on at 7.3, 1 unit of packed RBC ordered, it led count 27, INR 2.4, sodium 135 potassium 3.4 bilirubin 21.1 AST 52 ALT 31 albumin 2.9. Care plan and CODE STATUS discussed with patient. Patient explained the morbidity of underlying condition and was explained the prognosis as well. * 03/01/2023 : Patient seen and evaluated, patient alert and oriented 4, care plan discussed discussed with the patient has ever been seen by hepatology, patient states she might have had an appointment at [facility] however does not remember. Liver profile and PT/INR continues to remain chronically elevated. Discussed with patient need for transfer to tertiary care center, at this time patient would want to do it if it's absolutely needed otherwise she would like to stay here in [place] REVIEW OF SYSTEMS: Weakness, lower extremity swelling, abdominal distention CONSTITUTIONAL: No fever, no malaise, no fatigue. HEENT: No recent visual problems or hearing problems. Denied any sore throat. CARDIOVASCULAR: No chest pain, orthopnea, PND, no palpitations, no syncope. PULMONARY: No shortness of breath, no cough, no hemoptysis. GASTROINTESTINAL: Weakness, lower extremity swelling, abdominal distention NEUROLOGICAL: No headaches, no weakness, no numbness. HEMATOLOGICAL: Denies any bleeding or petechiae. GENITOURINARY: Denies any burning micturition, frequency, or urgency. MUSCULOSKELETAL/RHEUMATOLOGICAL: Denies any joint pain, swelling, or any muscle pain. ENDOCRINE: Denies any polyuria or polydipsia. The rest of the 14-point review of systems is negative. PHYSICAL EXAMINATION: GENERAL: The patient is alert and oriented x3, deconditioned, chronically ill, yellow discoloration, Pale HEENT: Pupils are round and equally reacting to light. EOMI. scleral icterus. CARDIOVASCULAR: S1 and S2 present. Tachycardia noted PULMONARY: Chest is clear to auscultation, no wheezing or crackles. ABDOMEN: Soft, nontender, distended, nontender on palpation MUSCULOSKELETAL: No joint swelling or deformity. EXTREMITIES: pedal edema. NEUROLOGICAL: Gross neurological examination did not reveal any focal deficits. Objective - Vital Signs Vital signs: Vital Signs Temp 97.9 F 03/01/23 08:02 Pulse 104 H 03/01/23 08:02 Resp 20 03/01/23 08:02 BP 99/64 03/01/23 08:02 Pulse Ox 95 03/01/23 08:02 FiO2 Intake & Output 02/28/23 03/01/23 03/01/23 18:59 06:59 18:59 Intake Total 279 540 10 Output Total 500 Balance -221 540 10 Weight 75.296 kg Intake: IV 10 Invasive Line 1 10 Oral 540 Blood Product 279 Rc Pheresis As-3 Unit 279 [id number] Output: Urine 500 Other: Voiding Method External Catheter External Catheter External Catheter # Voids 1 # Bowel Movements 1 - Labs CBC & Chem 7: 02/28/23 08:53 02/28/23 08:53 Labs: Abnormal Lab Results - Last 24 Hours (Table) 02/27/23 02/28/23 Range/Units 14:16 08:53 RBC 1.68 L (3.80-5.40) m/uL Hgb 7.3 L (11.4-16.0) gm/dL Hct 21.0 L (34.0-46.0) % MCV 124.9 H (80.0-100.0) fL MCH 43.7 H (25.0-35.0) pg RDW 18.5 H (11.5-15.5) % Plt Count 27 L (150-450) k/uL Macrocytosis Marked A Crossmatch See Detail Assessment and Plan Assessment: Assessment and plan * Decompensated liver cirrhosis with history of alcohol liver disease * Hyperbilirubinemia secondary to cirrhosis, recurrent ascites * Lactic acidosis likely hepatic in origin * Seizure disorder with history of breakthrough seizures * Coagulopathy with elevated INR secondary to hepatic disease * Chronic thrombocytopenia * Chronic anemia * In regards to decompensated liver cirrhosis, IR consulted for paracentesis, , IV vitamin K, follow up on INR levels * In regards to seizure disorder continue patient on Keppra * In regards to chronic thrombocytopenia, maintain thrombocytopenia precautions, platelet transfusion to be given prior to paracentesis * In regards to chronic anemia, 1 unit of packed RBC given 02/28 , follow-up H&H 7.3, blood work ordered for 03/01 pending * Continue patient on Lasix, >> Aldactone on hold secondary to hypotension * Continue Midodrine for blood pressure support * Continue to follow up on hemoglobin * SCDs for DVT prophylaxis * Protonix for GI prophylaxis * CODE STATUS is full code * Prognosis remains extremely guarded secondary to underlying liver disease Time with Patient: Greater than 30
[2023-03-01] MEDS: PHYTONADIONE 10 MG in SODIUM CHLORIDE 0.9% 50 ML IVPB SCH (13:26)
--- NOTE | 2023-03-01 15:09 | US ---
EXAMINATION TYPE: US abdomen limited DATE OF EXAM: 03/01/2023 COMPARISON: NONE CLINICAL INDICATION: Female, 52 years old with history of Ascites; Ascites. Scanned all four quadrants of the abdomen. Ascites seen within all four quadrants. Larger fluid pocket was seen on the right side. IMPRESSION: 1. Ascites all 4 quadrants abdomen
[2023-03-01 16:42] LABS: ALT 30 U/L (4-34); AST 58 U/L (14-36); African American GFR (CKD) 82 (>60 ml/min/1.73 sqM); Alkaline Phosphatase 127 U/L (38-126); Anion Gap 12 mmol/L; Blood Urea Nitrogen 14 mg/dL (7-17); Calcium 8.3 mg/dL (8.4-10.2); Carbon Dioxide 21 mmol/L (22-30); Chloride 102 mmol/L (98-107); Glucose 109 mg/dL (74-99); Non-African American GFR(CKD) 71 (>60 ml/min/1.73 sqM); Potassium 3.1 mmol/L (3.5-5.1); Sodium 135 mmol/L (137-145)
[2023-03-01 16:43] LABS: Anisocytosis Moderate; HCT 25.9 % (34.0-46.0); HGB 8.8 gm/dL (11.4-16.0); Hypochromasia Moderate; MCH 41.8 pg (25.0-35.0); MCHC 34.1 g/dL (31.0-37.0); MCV 122.8 fL (80.0-100.0); Macrocytosis Marked; Mean Platelet Volume 9.7; Poikilocytosis Moderate; RBC 2.11 m/uL (3.80-5.40); RDW 20.3 % (11.5-15.5); WBC 7.4 k/uL (3.8-10.6)
[2023-03-01 16:47] LABS: INR 2.3 (<1.2); Prothrombin Time 22.4 sec (10.0-12.5)
[2023-03-01 16:59] LABS: Platelet Count 25 k/uL (150-450)
[2023-03-01 17:06] LABS: Total Bilirubin 22.5 mg/dL (0.2-1.3)
[2023-03-02] MEDS: MIDODRINE 5 MG TAB PO SCH ×3 (06:18→17:21)
[2023-03-02 06:56] LABS: Anisocytosis Slight; HCT 21.8 % (34.0-46.0); HGB 7.6 gm/dL (11.4-16.0); Hypochromasia Moderate; MCHC 34.9 g/dL (31.0-37.0); MCV 121.9 fL (80.0-100.0); Macrocytosis Marked; Mean Platelet Volume 8.4; Poikilocytosis Moderate; RBC 1.79 m/uL (3.80-5.40); RDW 19.5 % (11.5-15.5); WBC 6.5 k/uL (3.8-10.6)
[2023-03-02 07:30] LABS: INR 2.4 (<1.2); Prothrombin Time 24.3 sec (10.0-12.5)
[2023-03-02 07:37] LABS: ALT 28 U/L (4-34); AST 38 U/L (14-36); African American GFR (CKD) 78 (>60 ml/min/1.73 sqM); Albumin 2.5 g/dL (3.5-5.0); Alkaline Phosphatase 112 U/L (38-126); Anion Gap 11 mmol/L; Blood Urea Nitrogen 14 mg/dL (7-17); Calcium 8.1 mg/dL (8.4-10.2); Carbon Dioxide 21 mmol/L (22-30); Chloride 102 mmol/L (98-107); Glucose 98 mg/dL (74-99); Non-African American GFR(CKD) 68 (>60 ml/min/1.73 sqM); Sodium 134 mmol/L (137-145)
[2023-03-02 07:41] LABS: Platelet Count 30 k/uL (150-450)
[2023-03-02 07:42] LABS: MCH 42.5 pg (25.0-35.0)
[2023-03-02] MEDS: FLUoxetine HCL 20 MG CAP PO SCH (08:28)
[2023-03-02] MEDS: levETIRAcetam 500 MG TAB PO SCH ×2 (08:28→19:37)
[2023-03-02] MEDS: PANTOPRAZOLE 40 MG TABLET PO SCH (08:28)
[2023-03-02] MEDS: LACTULOSE 20 GM/30 ML CUP PO SCH ×3 (08:28→19:36)
[2023-03-02] MEDS: FUROSEMIDE 40 MG TAB PO SCH (08:29)
[2023-03-02] MEDS: PHYTONADIONE 10 MG in SODIUM CHLORIDE 0.9% 50 ML IVPB SCH (08:29)
[2023-03-02] MEDS: THIAMINE 100 MG TAB PO SCH (08:29)
--- NOTE | 2023-03-02 13:05 | P.CONS ---
History of Present Illness - Reason for Consult Consult date: 03/02/23 Decompensated cirrhosis of the liver Requesting physician: Indu Howell - Chief Complaint Dizziness and shortness of breath - History of Present Illness This is a 52-year-old female with past medical history of cirrhosis of the liver from underlying alcohol abuse and asthma who presented to the emergency department from her family with concerns of hypoxia. Apparently patient was seen her PCP in the office and was short of breath and her oxygen levels were in the upper 80s. Patient currently is confused and states she can't remember much other than that she was short of breath and dizzy. She is unsure she is currently on diuretics, she states she has had paracentesis before but cannot remember the last time. Reviewing her chart looks like last paracentesis was done on 02/10/2023 with a 9.5 L removed. She is unsure last time she has followed with Dr. Alcantar in the office. She had a chest x-ray on admission showing diffuse interstitial pattern with left lower lobe infiltrate correlate for CHF otherwise consider pneumonia. She had a CT of the pelvis without contrast that showed no abnormality. Ultrasound shows ascites in all 4 quadrants. Home medications include Lasix 40 mg daily Aldactone 100 mg daily and lactulose 30 g by mouth 3 times a day. She received 1 unit of blood on 02/28/2023. Denies any bleeding. Today's labs WBC 6.5 hemoglobin 7.6 hematocrit 21.8 platelet count 30,010 are 2.4 sodium 134 potassium 3.0 BUN 14 creatinine 0.97 total bilirubin 19 AST 38 ALT 28 alkaline phosphatase 112 Review of Systems REVIEW OF SYSTEMS: CARDIOPULMONARY: Came in with shortness of breath and hypoxia. Gastrointestinal: Denies any abdominal pain. No nausea or vomiting. No hematemesis, coffee-ground emesis. No rectal bleeding, or melena. GENITOURINARY: No dysuria or hematuria. MUSCULOSKELETAL: Reports normal range of motion., Joint pain. SKIN: No rashes. No jaundice. ENDOCRINE: No chills, fevers. No excessive weight gain or loss. No polydipsia or polyuria. PSYCHIATRIC: Unremarkable. NEUROLOGY: Reported dizziness on admission. Patient is confused, poor memory. ENT: Vision unremarkable. CONSTITUTIONAL: No recent weight loss. No fever, chills, night sweats. Past Medical History Past Medical History: Asthma, Liver Disease Additional Past Medical History / Comment(s): ascites,paracentesis 12/28/22, low platelets, previous ETOH abuse History of Any Multi-Drug Resistant Organisms: None Reported Past Surgical History: No Surgical Hx Reported Additional Past Surgical History / Comment(s): repair to spleen [place] Ruptured spleen in 1988 Past Anesthesia/Blood Transfusion Reactions: No Reported Reaction Additional Past Anesthesia/Blood Transfusion Reaction / Comm: Unsure if had blood transfusion in past Past Psychological History: Anxiety, Bipolar, Depression Additional Psychological History / Comment(s): ETOH use Smoking Status: Current every day smoker Past Alcohol Use History: None Reported Additional Past Alcohol Use History / Comment(s): Stated that pt quit drinking in August 2022 Past Drug Use History: None Reported Additional Drug Use History / Comment(s): Marijuana use; Smokes a pack a day of cigarettes - Past Family History Sister(s) Additional Family Medical History / Comment(s): closed head injury Mother Family Medical History: Diabetes Mellitus, Hyperlipidemia Medications and Allergies Home Medications Medication Instructions Recorded Confirmed Type FLUoxetine HCL [PROzac] 40 mg PO DAILY 10/01/22 02/27/23 History Potassium Chloride ER [K-Dur 10] 10 meq PO DAILY 10/01/22 02/27/23 History Thiamine [Vitamin B-1] 100 mg PO DAILY 10/01/22 02/27/23 History Lactulose [Cephulac] 30 gm PO TID #120 ml 10/04/22 02/27/23 Rx Ubidecarenone [Coenzyme Q10] 100 mg PO DAILY 12/02/22 02/27/23 History Phytonadione Oral [Vitamin K Oral] 5 mg PO DAILY #15 ml 12/04/22 02/27/23 Rx Midodrine [ProAmatine] 5 mg PO AC-TID #90 tab 01/05/23 02/27/23 Rx levETIRAcetam [Keppra] 500 mg PO Q12HR #60 tab 01/05/23 02/27/23 Rx Furosemide [Lasix] 20 mg PO DAILY #30 tab 01/15/23 02/27/23 Rx Spironolactone [Aldactone] 100 mg PO DAILY #30 tab 01/15/23 02/27/23 Rx Ibuprofen [Advil] 200 mg PO TID PRN tab 02/10/23 02/27/23 Rx Pantoprazole Sodium [Protonix] 40 mg PO DAILY 02/27/23 02/27/23 History Allergies Allergy/AdvReac Type Severity Reaction Status Date / Time Penicillins Allergy Swelling Verified 02/27/23 12:16 tongue Sulfa (Sulfonamide Allergy Swelling Verified 02/27/23 12:16 Antibiotics) tongue walnut Allergy Anaphylaxis Verified 02/27/23 12:16 Physical Exam Vitals: Vital Signs Temp Pulse Pulse Resp BP BP Pulse Ox 03/02/23 11:46 98 F 100 16 100/61 16 L 03/02/23 11:26 97.9 F 98 16 97/64 97 03/02/23 11:16 97.8 F 98 16 99/65 97 03/02/23 08:00 97 16 90/54 96 03/02/23 04:08 97.8 F 96 16 91/55 95 03/01/23 23:32 98 F 101 H 17 91/53 95 03/01/23 20:29 103 H 18 102/67 95 03/01/23 15:46 98.2 F 90 18 93/55 94 L 03/01/23 13:45 98.1 F 99 18 95/62 98 03/01/23 13:24 98.6 F 100 16 98/64 100 Intake and Output 03/01/23 03/02/23 03/02/23 22:59 06:59 14:59 Intake Total 10 240 10 Balance 10 240 10 Intake: IV 10 10 Invasive Line 1 10 10 Oral 0 240 Blood Product 0 Ffp 24 Cpd Unit 0 [id number] Other: Voiding Method External Catheter External Catheter # Voids 1 Weight 75.296 kg General appearance: The patient is alert, oriented, appears in no acute distress. HET: Head is normocephalic and atraumatic. Conjunctiva pink. Sclera deeply icteric. Neck: Supple without lymphadenopathy. Trachea midline. Heart: Regular. Lungs: Equal expansion, normal respiratory effort. Abdomen: Soft, nontender, nondistended with bowel sounds. No guarding or rigidity. Skin: No rashes. Jaundice. Extremities: Normal skin color and turgor. No pedal edema. Neurological: No focal deficits. Alert and oriented x3. Results CBC & Chem 7: 03/02/23 06:25 03/02/23 06:25 Labs: Abnormal Lab Results - Last 24 Hours (Table) 02/27/23 03/01/23 03/01/23 Range/Units 14:16 14:24 14:24 RBC 2.11 L (3.80-5.40) m/uL Hgb 8.8 L D (11.4-16.0) gm/dL Hct 25.9 L (34.0-46.0) % MCV 122.8 H (80.0-100.0) fL MCH 41.8 H (25.0-35.0) pg RDW 20.3 H (11.5-15.5) % Plt Count 25 L (150-450) k/uL Macrocytosis Marked A PT 22.4 H (10.0-12.5) sec INR 2.3 H (<1.2) Sodium (137-145) mmol/L Potassium (3.5-5.1) mmol/L Carbon Dioxide (22-30) mmol/L Glucose (74-99) mg/dL Calcium (8.4-10.2) mg/dL Total Bilirubin (0.2-1.3) mg/dL AST (14-36) U/L Alkaline Phosphatase (38-126) U/L Total Protein (6.3-8.2) g/dL Albumin (3.5-5.0) g/dL Crossmatch See Detail 03/01/23 03/02/23 03/02/23 Range/Units 14:24 06:25 06:25 RBC 1.79 L (3.80-5.40) m/uL Hgb 7.6 L (11.4-16.0) gm/dL Hct 21.8 L (34.0-46.0) % MCV 121.9 H (80.0-100.0) fL MCH 42.5 H (25.0-35.0) pg RDW 19.5 H (11.5-15.5) % Plt Count 30 L (150-450) k/uL Macrocytosis Marked A PT 24.3 H (10.0-12.5) sec INR 2.4 H (<1.2) Sodium 135 L (137-145) mmol/L Potassium 3.1 L (3.5-5.1) mmol/L Carbon Dioxide 21 L (22-30) mmol/L Glucose 109 H (74-99) mg/dL Calcium 8.3 L (8.4-10.2) mg/dL Total Bilirubin 22.5 H* (0.2-1.3) mg/dL AST 58 H (14-36) U/L Alkaline Phosphatase 127 H (38-126) U/L Total Protein (6.3-8.2) g/dL Albumin 3.0 L (3.5-5.0) g/dL Crossmatch 03/02/23 Range/Units 06:25 RBC (3.80-5.40) m/uL Hgb (11.4-16.0) gm/dL Hct (34.0-46.0) % MCV (80.0-100.0) fL MCH (25.0-35.0) pg RDW (11.5-15.5) % Plt Count (150-450) k/uL Macrocytosis PT (10.0-12.5) sec INR (<1.2) Sodium 134 L (137-145) mmol/L Potassium 3.0 L (3.5-5.1) mmol/L Carbon Dioxide 21 L (22-30) mmol/L Glucose (74-99) mg/dL Calcium 8.1 L (8.4-10.2) mg/dL Total Bilirubin 19.0 H* (0.2-1.3) mg/dL AST 38 H (14-36) U/L Alkaline Phosphatase (38-126) U/L Total Protein 6.0 L (6.3-8.2) g/dL Albumin 2.5 L (3.5-5.0) g/dL Crossmatch Comments: hest x-ray on admission showing diffuse interstitial pattern with left lower lobe infiltrate correlate for CHF otherwise consider pneumonia. She had a CT of the pelvis without contrast that showed no abnormality. Ultrasound shows ascites in all 4 quadrants. Assessment and Plan (1) Decompensation of cirrhosis of liver Narrative/Plan: 52-year-old female known to gastroenterology with decompensated cirrhosis of the liver from alcohol abuse and had presented for shortness of breath and dizziness. Gastroenterology consulted for management of cirrhosis. Patient with a distended abdomen, has had previous paracentesis in the past. Appears to be with hepatic encephalopathy, no ammonia levels drawn. Patient with poor memory. Continue diuretics. Continue lactulose. Replace potassium per pr otocol. Continue alcohol abstinence. Current Visit: Yes Status: Acute Code(s): K72.90 - HEPATIC FAILURE, UNSPECIFIED WITHOUT COMA; K74.60 - UNSPECIFIED CIRRHOSIS OF LIVER SNOMED Code(s): 883777227 (2) Thrombocytopenia Current Visit: Yes Status: Acute Code(s): D69.6 - THROMBOCYTOPENIA, UNSPECIFIED SNOMED Code(s): 859635488 (3) Ascites Narrative/Plan: Therapeutic paracentesis as needed Current Visit: No Status: Acute Code(s): R18.8 - OTHER ASCITES SNOMED Code(s): 361350893 (4) Hepatic encephalopathy Current Visit: No Status: Acute Code(s): K76.82 - HEPATIC ENCEPHALOPATHY SNOMED Code(s): 13857214 (5) Hypokalemia Narrative/Plan: Replace per protocol Current Visit: No Status: Acute Code(s): E87.6 - HYPOKALEMIA SNOMED Code(s): 24566030 Plan: 1. Continue symptomatic and supportive care 2. Daily CBC transfuse for hemoglobin less than 7 3. Daily CMP, ammonia 4. Lactulose 30 g 3 times a day titrate to 3-4 bowel movements daily 5. Continue Lasix 40 mg daily and spironolactone 100 mg daily 6. Replace potassium per protocol 7. Continue alcohol abstinence 8. Agree with therapeutic paracentesis 9. Consider FFP for paracentesis Thank you for this consultation, we will continue to follow. Dr. Liv Alcantar I agree with the dictator's note, documented as a scribe by Valery Flaherty.
[2023-03-02] MEDS ORDERED: POTASSIUM CHLORIDE ER 20 MEQ TAB.ER PO STA (13:17)
--- NOTE | 2023-03-02 13:20 | P.PN ---
Subjective Progress Note Date: 03/02/23 * 52-year-old lady with past medical history significant for decompensated liver cirrhosis, alcohol liver disease, history of alcohol use disorder, asthma, anxiety, depression, bipolar disorder, chronic anemia presents to the emergency department with complains of abdominal distention. Patient was recently admitted in the hospital from 01/31/2023 discharge on 02/10/2023 patient had high-volume paracentesis completed on 02/10 with 9.6 L of fluid removed. Patient presents with complains of shortness of breath and dizziness. Patient was sent in from her PCP office secondary to increased lower extremity swelling and shortness of breath ,She has patient has followed up with gastroenterology Dr. Alcantar. * Workup in ER included CBC which were WBC of 8.3 hemoglobin 8.2 platelet count of 34,000. Serum chemistry obtained sodium 131 potassium 4.9 carbon dioxide 20 B UN 14 creatinine 0.9 plasma lactate of 3, total bilirubin of 23 AST of 61 a LT of 38 albumin of 3.3 * Patient has decompensated liver cirrhosis, with recurrent hospitalization, since September 2022 this is her 6th hospitalization. Her prognosis remains guarded was discussed with patient as well secondary to worsening liver cirrhosis * 02/28/2023: Patient seen and evaluated and bedside, patient alert and oriented 3, patient noted to have low blood pressure, hemoglobin noted to be on at 7.3, 1 unit of packed RBC ordered, it led count 27, INR 2.4, sodium 135 potassium 3.4 bilirubin 21.1 AST 52 ALT 31 albumin 2.9. Care plan and CODE STATUS discussed with patient. Patient explained the morbidity of underlying condition and was explained the prognosis as well. * 03/01/2023 : Patient seen and evaluated, patient alert and oriented 4, care plan discussed discussed with the patient has ever been seen by hepatology, patient states she might have had an appointment at [facility] however does not remember. Liver profile and PT/INR continues to remain chronically elevated. Discussed with patient need for transfer to tertiary care center, at this time patient would want to do it if it's absolutely needed otherwise she would like to stay here in [place] * 03/02/2023: Patient seen and evaluated bedside, patient is alert and oriented 4, patient is a paracentesis today, potassium noted to be 3 which will be replaced, bilirubin 19, hemoglobin 7.6 platelet count of 30,000. Patient received platelet and neck Pain, INR 2.4 and follow-up. Will request gastroenterology evaluation as well REVIEW OF SYSTEMS: Weakness, lower extremity swelling, abdominal distention CONSTITUTIONAL: No fever, no malaise, no fatigue. HEENT: No recent visual problems or hearing problems. Denied any sore throat. CARDIOVASCULAR: No chest pain, orthopnea, PND, no palpitations, no syncope. PULMONARY: No shortness of breath, no cough, no hemoptysis. GASTROINTESTINAL: Weakness, lower extremity swelling, abdominal distention NEUROLOGICAL: No headaches, no weakness, no numbness. HEMATOLOGICAL: Denies any bleeding or petechiae. GENITOURINARY: Denies any burning micturition, frequency, or urgency. MUSCULOSKELETAL/RHEUMATOLOGICAL: Denies any joint pain, swelling, or any muscle pain. ENDOCRINE: Denies any polyuria or polydipsia. PHYSICAL EXAMINATION: GENERAL: The patient is alert and oriented x3, deconditioned, chronically ill, yellow discoloration, Pale HEENT: Pupils are round and equally reacting to light. EOMI. scleral icterus. CARDIOVASCULAR: S1 and S2 present. Tachycardia noted PULMONARY: Chest is clear to auscultation, no wheezing or crackles. ABDOMEN: Soft, nontender, distended, nontender on palpation MUSCULOSKELETAL: No joint swelling or deformity. EXTREMITIES: pedal edema. NEUROLOGICAL: Gross neurological examination did not reveal any focal deficits. Objective - Vital Signs Vital signs: Vital Signs Temp 98.0 F 03/02/23 12:49 Pulse 104 H 03/02/23 12:49 Resp 16 03/02/23 12:49 BP 97/63 03/02/23 12:49 Pulse Ox 96 03/02/23 12:49 FiO2 Intake & Output 03/01/23 03/02/23 03/02/23 18:59 06:59 18:59 Intake Total 10 250 338 Output Total 500 Balance -490 250 338 Weight 75.296 kg Intake: IV 10 10 10 Invasive Line 1 10 10 10 Oral 0 240 Blood Product 328 Ffp 24 Cpd Unit 328 [id number] Platelet Pheresis Pas 0 Psoralen Unit [id number] Output: Urine 500 Other: Voiding Method External Catheter External Catheter External Catheter # Voids 1 - Labs CBC & Chem 7: 03/02/23 06:25 03/02/23 06:25 Labs: Abnormal Lab Results - Last 24 Hours (Table) 02/27/23 03/01/23 03/01/23 Range/Units 14:16 14:24 14:24 RBC 2.11 L (3.80-5.40) m/uL Hgb 8.8 L D (11.4-16.0) gm/dL Hct 25.9 L (34.0-46.0) % MCV 122.8 H (80.0-100.0) fL MCH 41.8 H (25.0-35.0) pg RDW 20.3 H (11.5-15.5) % Plt Count 25 L (150-450) k/uL Macrocytosis Marked A PT 22.4 H (10.0-12.5) sec INR 2.3 H (<1.2) Sodium (137-145) mmol/L Potassium (3.5-5.1) mmol/L Carbon Dioxide (22-30) mmol/L Glucose (74-99) mg/dL Calcium (8.4-10.2) mg/dL Total Bilirubin (0.2-1.3) mg/dL AST (14-36) U/L Alkaline Phosphatase (38-126) U/L Total Protein (6.3-8.2) g/dL Albumin (3.5-5.0) g/dL Crossmatch See Detail 03/01/23 03/02/23 03/02/23 Range/Units 14:24 06:25 06:25 RBC 1.79 L (3.80-5.40) m/uL Hgb 7.6 L (11.4-16.0) gm/dL Hct 21.8 L (34.0-46.0) % MCV 121.9 H (80.0-100.0) fL MCH 42.5 H (25.0-35.0) pg RDW 19.5 H (11.5-15.5) % Plt Count 30 L (150-450) k/uL Macrocytosis Marked A PT 24.3 H (10.0-12.5) sec INR 2.4 H (<1.2) Sodium 135 L (137-145) mmol/L Potassium 3.1 L (3.5-5.1) mmol/L Carbon Dioxide 21 L (22-30) mmol/L Glucose 109 H (74-99) mg/dL Calcium 8.3 L (8.4-10.2) mg/dL Total Bilirubin 22.5 H* (0.2-1.3) mg/dL AST 58 H (14-36) U/L Alkaline Phosphatase 127 H (38-126) U/L Total Protein (6.3-8.2) g/dL Albumin 3.0 L (3.5-5.0) g/dL Crossmatch 03/02/23 Range/Units 06:25 RBC (3.80-5.40) m/uL Hgb (11.4-16.0) gm/dL Hct (34.0-46.0) % MCV (80.0-100.0) fL MCH (25.0-35.0) pg RDW (11.5-15.5) % Plt Count (150-450) k/uL Macrocytosis PT (10.0-12.5) sec INR (<1.2) Sodium 134 L (137-145) mmol/L Potassium 3.0 L (3.5-5.1) mmol/L Carbon Dioxide 21 L (22-30) mmol/L Glucose (74-99) mg/dL Calcium 8.1 L (8.4-10.2) mg/dL Total Bilirubin 19.0 H* (0.2-1.3) mg/dL AST 38 H (14-36) U/L Alkaline Phosphatase (38-126) U/L Total Protein 6.0 L (6.3-8.2) g/dL Albumin 2.5 L (3.5-5.0) g/dL Crossmatch Assessment and Plan Assessment: Assessment and plan * Decompensated liver cirrhosis with history of alcohol liver disease * Hyperbilirubinemia secondary to cirrhosis, recurrent ascites * Lactic acidosis likely hepatic in origin * Seizure disorder with history of breakthrough seizures * Coagulopathy with elevated INR secondary to hepatic disease * Chronic thrombocytopenia * Chronic anemia * In regards to decompensated liver cirrhosis, IR consulted for paracentesis scheduled for 03/02, , IV vitamin K, follow up on INR levels elevated, patient received platelet and FFP * In regards to seizure disorder continue patient on Keppra * In regards to chronic thrombocytopenia, maintain thrombocytopenia precautions, platelet transfusion to be given prior to paracentesis ordered for 03/02 * In regards to chronic anemia, 1 unit of packed RBC given 02/28, follow-up hemoglobin 1.6 today * Continue patient on Lasix, >> Aldactone was on hold secondary to hypotension, resumed on 03/03 with a rolling millimeters * Continue Midodrine for blood pressure support * Continue to follow up on hemoglobin * SCDs for DVT prophylaxis * Protonix for GI prophylaxis * CODE STATUS is full code * Prognosis remains extremely guarded secondary to underlying liver disease
[2023-03-02] MEDS: ALBUMIN HUMAN 25% 50 ML in EMPTY BAG 1 BAG IVPB SCH ×4 (17:21→21:02)
[2023-03-03] MEDS: MIDODRINE 5 MG TAB PO SCH ×3 (06:25→15:51)
[2023-03-03] MEDS: PHYTONADIONE 10 MG in SODIUM CHLORIDE 0.9% 50 ML IVPB SCH (08:28)
[2023-03-03] MEDS: LACTULOSE 20 GM/30 ML CUP PO SCH ×4 (08:28→21:46)
[2023-03-03] MEDS: THIAMINE 100 MG TAB PO SCH (08:29)
[2023-03-03] MEDS: PANTOPRAZOLE 40 MG TABLET PO SCH (08:29)
[2023-03-03] MEDS: FUROSEMIDE 40 MG TAB PO SCH (08:29)
[2023-03-03] MEDS: levETIRAcetam 500 MG TAB PO SCH ×2 (08:29→21:46)
[2023-03-03] MEDS: FLUoxetine HCL 20 MG CAP PO SCH (08:29)
[2023-03-03] MEDS: SPIRONOLACTONE 25 MG TAB PO SCH (08:29)
[2023-03-03 10:33] LABS: Anisocytosis Slight; HCT 22.3 % (34.0-46.0); HGB 7.4 gm/dL (11.4-16.0); Hypochromasia Moderate; MCH 41.5 pg (25.0-35.0); MCHC 33.3 g/dL (31.0-37.0); MCV 124.5 fL (80.0-100.0); Macrocytosis Marked; Poikilocytosis Slight; RBC 1.79 m/uL (3.80-5.40); RDW 19.6 % (11.5-15.5); WBC 4.7 k/uL (3.8-10.6)
[2023-03-03 10:34] LABS: Platelet Count 30 k/uL (150-450)
[2023-03-03 10:42] LABS: ALT 29 U/L (4-34); AST 51 U/L (14-36); African American GFR (CKD) >90 (>60 ml/min/1.73 sqM); Albumin 2.9 g/dL (3.5-5.0); Alkaline Phosphatase 92 U/L (38-126); Anion Gap 13 mmol/L; Blood Urea Nitrogen 13 mg/dL (7-17); Calcium 8.3 mg/dL (8.4-10.2); Carbon Dioxide 23 mmol/L (22-30); Chloride 100 mmol/L (98-107); Glucose 107 mg/dL (74-99); Non-African American GFR(CKD) 80 (>60 ml/min/1.73 sqM); Potassium 3.2 mmol/L (3.5-5.1); Sodium 136 mmol/L (137-145); Total Protein 6.4 g/dL (6.3-8.2)
[2023-03-03 10:44] LABS: Total Bilirubin 18.1 mg/dL (0.2-1.3)
[2023-03-03 11:12] LABS: INR 2.4 (<1.2); Prothrombin Time 24.2 sec (10.0-12.5)
[2023-03-03] MEDS ORDERED: POTASSIUM CHLORIDE ER 20 MEQ TAB.ER PO STA ×2 (12:48→14:06)
--- NOTE | 2023-03-03 12:57 | P.PN ---
Subjective Progress Note Date: 03/03/23 Principal diagnosis: Hepatic encephalopathy, ascites This is a 52-year-old female with past medical history of cirrhosis of the liver from underlying alcohol abuse and asthma who presented to the emergency department from her family with concerns of hypoxia. Apparently patient was seen her PCP in the office and was short of breath and her oxygen levels were in the upper 80s. Patient currently is confused and states she can't remember much other than that she was short of breath and dizzy. She is unsure she is currently on diuretics, she states she has had paracentesis before but cannot remember the last time. Reviewing her chart looks like last paracentesis was done on 02/10/2023 with a 9.5 L removed. She is unsure last time she has followed with Dr. Alcantar in the office. She had a chest x-ray on admission showing diffuse interstitial pattern with left lower lobe infiltrate correlate for CHF otherwise consider pneumonia. She had a CT of the pelvis without con trast that showed no abnormality. Ultrasound shows ascites in all 4 quadrants. Home medications include Lasix 40 mg daily Aldactone 100 mg daily and lactulose 30 g by mouth 3 times a day. She received 1 unit of blood on 02/28/2023. Denies any bleeding. Patient also states that she did have an appointment last week Thursday with [facility] liver transplant team. She does not recall any information from that appointment. Apparently her was present with her though and who is currently not here. 03/03/2023 Patient seen and examined today as a follow-up. She still states she has some decreased memory. She has family at the bedside that states that she has been taking her medication daily. States that she usually has 2-3 bowel movements daily. She missed her last appointment with gastroenterology because she was hospitalized. Patient is very jaundiced. She underwent paracentesis yesterday, and she reports 9 L removed. She denies any nausea, vomiting, abdominal pain, or black stool or blood in her stool. Today's labs hemoglobin 7.4 hematocrit 22 platelet count 30,000 sodium 136 potassium 3.2 total bilirubin 18.1 AST 51 ALT 29 ALT 92 ammonia 59 Objective - Vital Signs Vital signs: Vital Signs Temp 97.9 F 03/03/23 03:44 Pulse 93 03/03/23 08:00 Resp 16 03/03/23 08:00 BP 91/50 03/03/23 08:00 Pulse Ox 100 03/03/23 08:00 FiO2 Intake & Output 03/02/23 03/03/23 03/03/23 18:59 06:59 18:59 Intake Total 673 10 118 Output Total 200 Balance 473 10 118 Weight 75.296 kg Intake: IV 10 10 Invasive Line 1 10 10 Oral 0 118 Blood Product 663 Ffp 24 Cpd Unit 328 [id number] Platelet Pheresis Pas 335 Psoralen Unit [id number] Output: Urine 200 Other: Voiding Method External Catheter External Catheter # Voids 1 1 - Exam General appearance: The patient is alert, oriented, appears in no acute distress. HET: Head is normocephalic and atraumatic. Conjunctiva pink. Sclera icteric. Neck: Supple without lymphadenopathy. Abdomen: Soft, nontender, nondistended with bowel sounds. No guarding or rigidity. Extremities: Normal skin color and turgor. Lower extremity pitting edema. Skin: No rashes, jaundice. Neurological: No focal deficits. Alert and oriented. - Labs CBC & Chem 7: 03/03/23 09:19 03/03/23 09:19 Labs: Abnormal Lab Results - Last 24 Hours (Table) 02/27/23 03/02/23 03/03/23 Range/Units 14:16 16:15 09:19 RBC 1.79 L (3.80-5.40) m/uL Hgb 7.4 L (11.4-16.0) gm/dL Hct 22.3 L (34.0-46.0) % MCV 124.5 H (80.0-100.0) fL MCH 41.5 H (25.0-35.0) pg RDW 19.6 H (11.5-15.5) % Plt Count 30 L (150-450) k/uL Macrocytosis Marked A Sodium (137-145) mmol/L Potassium (3.5-5.1) mmol/L Glucose (74-99) mg/dL Calcium (8.4-10.2) mg/dL Total Bilirubin (0.2-1.3) mg/dL AST (14-36) U/L Ammonia 40 H (<30) umol/L Albumin (3.5-5.0) g/dL Crossmatch See Detail 03/03/23 03/03/23 Range/Units 09:19 09:19 RBC (3.80-5.40) m/uL Hgb (11.4-16.0) gm/dL Hct (34.0-46.0) % MCV (80.0-100.0) fL MCH (25.0-35.0) pg RDW (11.5-15.5) % Plt Count (150-450) k/uL Macrocytosis Sodium 136 L (137-145) mmol/L Potassium 3.2 L (3.5-5.1) mmol/L Glucose 107 H (74-99) mg/dL Calcium 8.3 L (8.4-10.2) mg/dL Total Bilirubin 18.1 H* (0.2-1.3) mg/dL AST 51 H (14-36) U/L Ammonia 59 H (<30) umol/L Albumin 2.9 L (3.5-5.0) g/dL Crossmatch Assessment and Plan (1) Decompensation of cirrhosis of liver Narrative/Plan: 52-year-old female known to gastroenterology with decompensated cirrhosis of the liver from alcohol abuse and had presented for shortness of breath and dizziness. Gastroenterology consulted for management of cirrhosis. Patient with a distended abdomen, has had previous paracentesis in the past. Appears to be with hepatic encephalopathy, no ammonia levels drawn. Patient with poor memory. Continue diuretics. Continue lactulose. Replace potassium per protocol. Continue alcohol abstinence. Current Visit: Yes Status: Acute Code(s): K72.90 - HEPATIC FAILURE, UNSPECIFIED WITHOUT COMA; K74.60 - UNSPECIFIED CIRRHOSIS OF LIVER SNOMED Code(s): 195597662 (2) Thrombocytopenia Current Visit: Yes Status: Acute Code(s): D69.6 - THROMBOCYTOPENIA, UNSPECIFIED SNOMED Code(s): 335205820 (3) Ascites Narrative/Plan: Therapeutic paracentesis as needed. Patient underwent paracentesis yesterday with 9 L removed. Discussed importance of low sodium diet. Current Visit: No Status: Acute Code(s): R18.8 - OTHER ASCITES SNOMED Code(s): 382869172 (4) Hepatic encephalopathy Narrative/Plan: Discussed with patient and family member importance of taking lactulose every day and titrate to have 3-4 bowel movements daily. Patient seems more confused give fourth toes if needed. They both verbalized understanding. Current Visit: No Status: Acute Code(s): K76.82 - HEPATIC ENCEPHALOPATHY SNOMED Code(s): 80420716 (5) Hypokalemia Narrative/Plan: Replace per protocol Current Visit: No Status: Acute Code(s): E87.6 - HYPOKALEMIA SNOMED Code(s): 08203928 Plan: 1. Continue symptomatic and supportive care 2. Daily CBC transfuse for hemoglobin less than 7 3. Daily CMP, ammonia 4. Lactulose 30 g 3 times a day titrate to 3-4 bowel movements daily. Give extra dose if needed. 5. Continue Lasix 40 mg daily and spironolactone 100 mg daily 6. Replace potassium per protocol 7. Continue alcohol abstinence 8. Agree with therapeutic paracentesis 9. Low sodium diet 10. Follow-up with gastroenterology one week after discharge Thank you for this consultation, we will continue to follow. Dr. Liv Alcantar I agree with the dictator's note, documented as a scribe by Valery Flaherty.
--- NOTE | 2023-03-03 14:09 | P.PN ---
Subjective Progress Note Date: 03/03/23 * 52-year-old lady with past medical history significant for decompensated liver cirrhosis, alcohol liver disease, history of alcohol use disorder, asthma, anxiety, depression, bipolar disorder, chronic anemia presents to the emergency department with complains of abdominal distention. Patient was recently admitted in the hospital from 01/31/2023 discharge on 02/10/2023 patient had high-volume paracentesis completed on 02/10 with 9.6 L of fluid removed. Patient presents with complains of shortness of breath and dizziness. Patient was sent in from her PCP office secondary to increased lower extremity swelling and shortness of breath ,She has patient has followed up with gastroenterology Dr. Alcantar. * Workup in ER included CBC which were WBC of 8.3 hemoglobin 8.2 platelet count of 34,000. Serum chemistry obtained sodium 131 potassium 4.9 carbon dioxide 20 B UN 14 creatinine 0.9 plasma lactate of 3, total bilirubin of 23 AST of 61 a LT of 38 albumin of 3.3 * Patient has decompensated liver cirrhosis, with recurrent hospitalization, since September 2022 this is her 6th hospitalization. Her prognosis remains guarded was discussed with patient as well secondary to worsening liver cirrhosis * 02/28/2023: Patient seen and evaluated and bedside, patient alert and oriented 3, patient noted to have low blood pressure, hemoglobin noted to be on at 7.3, 1 unit of packed RBC ordered, it led count 27, INR 2.4, sodium 135 potassium 3.4 bilirubin 21.1 AST 52 ALT 31 albumin 2.9. Care plan and CODE STATUS discussed with patient. Patient explained the morbidity of underlying condition and was explained the prognosis as well. * 03/01/2023 : Patient seen and evaluated, patient alert and oriented 4, care plan discussed discussed with the patient has ever been seen by hepatology, patient states she might have had an appointment at [facility] however does not remember. Liver profile and PT/INR continues to remain chronically elevated. Discussed with patient need for transfer to tertiary care center, at this time patient would want to do it if it's absolutely needed otherwise she would like to stay here in [place] * 03/02/2023: Patient seen and evaluated bedside, patient is alert and oriented 4, patient is a paracentesis today, potassium noted to be 3 which will be replaced, bilirubin 19, hemoglobin 7.6 platelet count of 30,000. Patient received platelet and neck Pain, INR 2.4 and follow-up. Will request gastroenterology evaluation as well * 03/03/2023 : Patient seen and evaluated bedside, patient is alert and oriented 4, mother at bedside, blood work reviewed, patient is status post p aracentesis about 8.2 L of fluid removed, patient to be given albumin today, continue to follow up on CBC and platelet count potential discharge home within the next 24 hours REVIEW OF SYSTEMS: Weakness, lower extremity swelling, abdominal distention IMPROVED CONSTITUTIONAL: No fever, no malaise, no fatigue. HEENT: No recent visual problems or hearing problems. Denied any sore throat. CARDIOVASCULAR: No chest pain, orthopnea, PND, no palpitations, no syncope. PULMONARY: No shortness of breath, no cough, no hemoptysis. GASTROINTESTINAL: Weakness, lower extremity swelling, abdominal distention NEUROLOGICAL: No headaches, no weakness, no numbness. HEMATOLOGICAL: Denies any bleeding or petechiae. GENITOURINARY: Denies any burning micturition, frequency, or urgency. MUSCULOSKELETAL/RHEUMATOLOGICAL: Denies any joint pain, swelling, or any muscle pain. ENDOCRINE: Denies any polyuria or polydipsia. PHYSICAL EXAMINATION: GENERAL: The patient is alert and oriented x3, deconditioned, chronically ill, yellow discoloration, Pale HEENT: Pupils are round and equally reacting to light. EOMI. scleral icterus. CARDIOVASCULAR: S1 and S2 present. Tachycardia noted PULMONARY: Chest is clear to auscultation, no wheezing or crackles. ABDOMEN: Soft, nontender, distended, nontender on palpation MUSCULOSKELETAL: No joint swelling or deformity. EXTREMITIES: pedal edema. NEUROLOGICAL: Gross neurological examination did not reveal any focal deficits. Objective - Vital Signs Vital signs: Vital Signs Temp 97.9 F 03/03/23 03:44 Pulse 100 03/03/23 12:45 Resp 16 03/03/23 12:45 BP 101/55 03/03/23 12:45 Pulse Ox 98 03/03/23 12:45 FiO2 Intake & Output 03/02/23 03/03/23 03/03/23 18:59 06:59 18:59 Intake Total 673 10 246 Output Total 200 Balance 473 10 246 Weight 75.296 kg Intake: IV 10 10 10 Invasive Line 1 10 10 10 Oral 0 236 Blood Product 663 Ffp 24 Cpd Unit 328 [id number] Platelet Pheresis Pas 335 Psoralen Unit [id number] Output: Urine 200 Other: Voiding Method External Catheter External Catheter External Catheter # Voids 1 1 - Labs CBC & Chem 7: 03/03/23 09:19 03/03/23 09:19 Labs: Abnormal Lab Results - Last 24 Hours (Table) 03/02/23 03/03/23 03/03/23 Range/Units 16:15 09:19 09:19 RBC 1.79 L (3.80-5.40) m/uL Hgb 7.4 L (11.4-16.0) gm/dL Hct 22.3 L (34.0-46.0) % MCV 124.5 H (80.0-100.0) fL MCH 41.5 H (25.0-35.0) pg RDW 19.6 H (11.5-15.5) % Plt Count 30 L (150-450) k/uL Macrocytosis Marked A PT 24.2 H (10.0-12.5) sec INR 2.4 H (<1.2) Sodium (137-145) mmol/L Potassium (3.5-5.1) mmol/L Glucose (74-99) mg/dL Calcium (8.4-10.2) mg/dL Total Bilirubin (0.2-1.3) mg/dL AST (14-36) U/L Ammonia 40 H (<30) umol/L Albumin (3.5-5.0) g/dL 03/03/23 03/03/23 Range/Units 09:19 09:19 RBC (3.80-5.40) m/uL Hgb (11.4-16.0) gm/dL Hct (34.0-46.0) % MCV (80.0-100.0) fL MCH (25.0-35.0) pg RDW (11.5-15.5) % Plt Count (150-450) k/uL Macrocytosis PT (10.0-12.5) sec INR (<1.2) Sodium 136 L (137-145) mmol/L Potassium 3.2 L (3.5-5.1) mmol/L Glucose 107 H (74-99) mg/dL Calcium 8.3 L (8.4-10.2) mg/dL Total Bilirubin 18.1 H* (0.2-1.3) mg/dL AST 51 H (14-36) U/L Ammonia 59 H (<30) umol/L Albumin 2.9 L (3.5-5.0) g/dL Assessment and Plan Assessment: Assessment and plan * Decompensated liver cirrhosis with history of alcohol liver disease * Hyperbilirubinemia secondary to cirrhosis, recurrent ascites * Lactic acidosis likely hepatic in origin * Seizure disorder with history of breakthrough seizures * Coagulopathy with elevated INR secondary to hepatic disease * Chronic thrombocytopenia * Chronic anemia * In regards to decompensated liver cirrhosis, IR consulted for paracentesis scheduled for 03/02>> 8200 mL fluid removed , IV vitamin K, follow up on INR levels elevated, patient received platelet and FFP 03/02 * In regards to seizure disorder continue patient on Keppra * In regards to chronic thrombocytopenia, maintain thrombocytopenia precautions, platelet transfusion to be given prior to paracentesis ordered for 03/02 * In regards to chronic anemia, 1 unit of packed RBC given 02/28, follow-up hemoglobin 7.4 today * Continue patient on Lasix, >> Aldactone was on hold secondary to hypotension, resumed on 03/03 with a holding, parameter * Continue Midodrine for blood pressure support * Continue to follow up on hemoglobin * SCDs for DVT prophylaxis * Protonix for GI prophylaxis * CODE STATUS is full code * Prognosis remains extremely guarded secondary to underlying liver disease
--- NOTE | 2023-03-03 14:51 | US ---
Ultrasound-guided paracentesis. DATE OF EXAM: 03/02/2023 CLINICAL HISTORY: Ascites The procedure was discussed with the patient. The risks, complications, benefits, and alternatives we re discussed and any questions were answered. Informed consent was obtained. The patient was placed s upine on the ultrasound table and prepped and draped in the usual sterile fashion. All elements of maximal barrier technique were utilized. Under ultrasound guidance, access into the right lower quadrant was obtained, via the paracentesis catheter system and direct ultrasound guidanc e. Approximately 9.5 liters of straw-colored fluid was removed. The patient was stable throughout the pr ocedure and remained stable upon discharge from Department of Radiology. IMPRESSION: Successful paracentesis under ultrasound guidance.
[2023-03-03] MEDS: ALBUMIN HUMAN 25% 50 ML in EMPTY BAG 1 BAG IVPB SCH ×2 (15:51→17:55)
[2023-03-04] MEDS: MIDODRINE 5 MG TAB PO SCH ×3 (06:54→16:15)
[2023-03-04] MEDS: FLUoxetine HCL 20 MG CAP PO SCH (08:34)
[2023-03-04] MEDS: PANTOPRAZOLE 40 MG TABLET PO SCH (08:34)
[2023-03-04] MEDS: THIAMINE 100 MG TAB PO SCH (08:34)
[2023-03-04] MEDS: SPIRONOLACTONE 25 MG TAB PO SCH (08:35)
[2023-03-04] MEDS: levETIRAcetam 500 MG TAB PO SCH ×2 (08:35→21:56)
[2023-03-04] MEDS: PHYTONADIONE 10 MG in SODIUM CHLORIDE 0.9% 50 ML IVPB SCH (08:35)
[2023-03-04] MEDS: LACTULOSE 20 GM/30 ML CUP PO SCH ×3 (08:35→21:56)
[2023-03-04] MEDS: FUROSEMIDE 40 MG TAB PO SCH (08:35)
[2023-03-04 10:48] LABS: ALT 26 U/L (4-34); AST 37 U/L (14-36); African American GFR (CKD) >90 (>60 ml/min/1.73 sqM); Albumin 2.7 g/dL (3.5-5.0); Alkaline Phosphatase 81 U/L (38-126); Anion Gap 11 mmol/L; Blood Urea Nitrogen 11 mg/dL (7-17); Calcium 8.1 mg/dL (8.4-10.2); Carbon Dioxide 23 mmol/L (22-30); Chloride 102 mmol/L (98-107); Glucose 171 mg/dL (74-99); Non-African American GFR(CKD) 85 (>60 ml/min/1.73 sqM); Potassium 3.2 mmol/L (3.5-5.1); Sodium 136 mmol/L (137-145); Total Protein 5.9 g/dL (6.3-8.2)
[2023-03-04 10:50] LABS: Total Bilirubin 17.2 mg/dL (0.2-1.3)
[2023-03-04 11:04] LABS: INR 2.7 (<1.2); Prothrombin Time 26.8 sec (10.0-12.5)
[2023-03-04 11:25] LABS: Anisocytosis Slight; HCT 20.3 % (34.0-46.0); HGB 7.1 gm/dL (11.4-16.0); Hypochromasia Moderate; MCHC 34.9 g/dL (31.0-37.0); MCV 123.7 fL (80.0-100.0); Macrocytosis Marked; Mean Platelet Volume 9.5; Poikilocytosis Slight; RBC 1.64 m/uL (3.80-5.40); RDW 18.7 % (11.5-15.5)
[2023-03-04 11:27] LABS: MCH 43.1 pg (25.0-35.0); Platelet Count 36 k/uL (150-450)
[2023-03-04] MEDS ORDERED: POTASSIUM CHLORIDE ER 20 MEQ TAB.ER PO STA (12:01)
--- NOTE | 2023-03-04 12:04 | P.PN ---
Subjective Progress Note Date: 03/04/23 * 52-year-old lady with past medical history significant for decompensated liver cirrhosis, alcohol liver disease, history of alcohol use disorder, asthma, anxiety, depression, bipolar disorder, chronic anemia presents to the emergency department with complains of abdominal distention. Patient was recently admitted in the hospital from 01/31/2023 discharge on 02/10/2023 patient had high-volume paracentesis completed on 02/10 with 9.6 L of fluid removed. Patient presents with complains of shortness of breath and dizziness. Patient was sent in from her PCP office secondary to increased lower extremity swelling and shortness of breath ,She has patient has followed up with gastroenterology Dr. Alcantar. * Workup in ER included CBC which were WBC of 8.3 hemoglobin 8.2 platelet count of 34,000. Serum chemistry obtained sodium 131 potassium 4.9 carbon dioxide 20 B UN 14 creatinine 0.9 plasma lactate of 3, total bilirubin of 23 AST of 61 a LT of 38 albumin of 3.3 * Patient has decompensated liver cirrhosis, with recurrent hospitalization, since September 2022 this is her 6th hospitalization. Her prognosis remains guarded was discussed with patient as well secondary to worsening liver cirrhosis * 02/28/2023: Patient seen and evaluated and bedside, patient alert and oriented 3, patient noted to have low blood pressure, hemoglobin noted to be on at 7.3, 1 unit of packed RBC ordered, it led count 27, INR 2.4, sodium 135 potassium 3.4 bilirubin 21.1 AST 52 ALT 31 albumin 2.9. Care plan and CODE STATUS discussed with patient. Patient explained the morbidity of underlying condition and was explained the prognosis as well. * 03/01/2023 : Patient seen and evaluated, patient alert and oriented 4, care plan discussed discussed with the patient has ever been seen by hepatology, patient states she might have had an appointment at [place] however does not remember. Liver profile and PT/INR continues to remain chronically elevated. Discussed with patient need for transfer to tertiary care center, at this time patient would want to do it if it's absolutely needed otherwise she would like to stay here in [place] * 03/02/2023: Patient seen and evaluated bedside, patient is alert and oriented 4, patient is a paracentesis today, potassium noted to be 3 which will be replaced, bilirubin 19, hemoglobin 7.6 platelet count of 30,000. Patient received platelet and neck Pain, INR 2.4 and follow-up. Will request gastroenterology evaluation as well * 03/03/2023 : Patient seen and evaluated bedside, patient is alert and oriented 4, mother at bedside, blood work reviewed, patient is status post p aracentesis about 8.2 L of fluid removed, patient to be given albumin today, continue to follow up on CBC and platelet count potential discharge home within the next 24 hours * 03/04/2023: Patient seen and evaluated bedside patient is alert however does get confused during conversation, hemoglobin 7.1 patient to be given 1 unit of packed RBC, patient very weak will need physical therapy occupational therapy evaluation patient is in agreement and going to subacute rehab. We will give blood and follow-up on CBC tomorrow. Potential discharge to subacute rehab if patient remains hemodynamically stable. Potassium was replaced as well REVIEW OF SYSTEMS: Weakness, lower extremity swelling, abdominal distention IMPROVED CONSTITUTIONAL: No fever, no malaise, no fatigue. HEENT: No recent visual problems or hearing problems. Denied any sore throat. CARDIOVASCULAR: No chest pain, orthopnea, PND, no palpitations, no syncope. PULMONARY: No shortness of breath, no cough, no hemoptysis. GASTROINTESTINAL: Weakness, lower extremity swelling, abdominal distention NEUROLOGICAL: No headaches, no weakness, no numbness. HEMATOLOGICAL: Denies any bleeding or petechiae. GENITOURINARY: Denies any burning micturition, frequency, or urgency. MUSCULOSKELETAL/RHEUMATOLOGICAL: Denies any joint pain, swelling, or any muscle pain. ENDOCRINE: Denies any polyuria or polydipsia. PHYSICAL EXAMINATION: GENERAL: The patient is alert and oriented x3, deconditioned, chronically ill, yellow discoloration, Pale HEENT: Pupils are round and equally reacting to light. EOMI. scleral icterus. CARDIOVASCULAR: S1 and S2 present. Tachycardia noted PULMONARY: Chest is clear to auscultation, no wheezing or crackles. ABDOMEN: Soft, nontender, distended, nontender on palpation MUSCULOSKELETAL: No joint swelling or deformity. EXTREMITIES: pedal edema. NEUROLOGICAL: Gross neurological examination did not reveal any focal deficits. Intermittent confusion during conversation Objective - Vital Signs Vital signs: Vital Signs Temp 97 F L 03/04/23 08:00 Pulse 59 L 03/04/23 08:00 Resp 16 03/04/23 08:00 BP 102/59 03/04/23 08:00 Pulse Ox 97 03/04/23 08:00 FiO2 Intake & Output 03/03/23 03/04/23 03/04/23 18:59 06:59 18:59 Intake Total 246 120 180 Balance 246 120 180 Intake: IV 10 Invasive Line 1 10 Oral 236 120 180 Other: Voiding Method External Catheter External Catheter External Catheter # Voids 1 - Labs CBC & Chem 7: 03/04/23 10:10 03/04/23 10:10 Labs: Abnormal Lab Results - Last 24 Hours (Table) 03/04/23 03/04/23 03/04/23 Range/Units 10:10 10:10 10:10 RBC 1.64 L (3.80-5.40) m/uL Hgb 7.1 L (11.4-16.0) gm/dL Hct 20.3 L (34.0-46.0) % MCV 123.7 H (80.0-100.0) fL MCH 43.1 H (25.0-35.0) pg RDW 18.7 H (11.5-15.5) % Plt Count 36 L (150-450) k/uL Macrocytosis Marked A PT 26.8 H (10.0-12.5) sec INR 2.7 H (<1.2) Sodium 136 L (137-145) mmol/L Potassium 3.2 L (3.5-5.1) mmol/L Glucose 171 H (74-99) mg/dL Calcium 8.1 L (8.4-10.2) mg/dL Total Bilirubin 17.2 H* (0.2-1.3) mg/dL AST 37 H (14-36) U/L Ammonia (<30) umol/L Total Protein 5.9 L (6.3-8.2) g/dL Albumin 2.7 L (3.5-5.0) g/dL 03/04/23 Range/Units 10:10 RBC (3.80-5.40) m/uL Hgb (11.4-16.0) gm/dL Hct (34.0-46.0) % MCV (80.0-100.0) fL MCH (25.0-35.0) pg RDW (11.5-15.5) % Plt Count (150-450) k/uL Macrocytosis PT (10.0-12.5) sec INR (<1.2) Sodium (137-145) mmol/L Potassium (3.5-5.1) mmol/L Glucose (74-99) mg/dL Calcium (8.4-10.2) mg/dL Total Bilirubin (0.2-1.3) mg/dL AST (14-36) U/L Ammonia 105 H (<30) umol/L Total Protein (6.3-8.2) g/dL Albumin (3.5-5.0) g/dL Assessment and Plan Assessment: Assessment and plan * Decompensated liver cirrhosis with history of alcohol liver disease * Hyperbilirubinemia secondary to cirrhosis, recurrent ascites * Lactic acidosis likely hepatic in origin * Seizure disorder with history of breakthrough seizures * Coagulopathy with elevated INR secondary to hepatic disease * Chronic thrombocytopenia * Chronic anemia * In regards to decompensated liver cirrhosis, IR was consulted for paracentesis scheduled for 03/02>> 8200 mL fluid removed , IV vitamin K daily >> follow up on INR levels elevated, patient received platelet and FFP 03/02 * In regards to seizure disorder continue patient on Keppra * In regards to chronic thrombocytopenia, maintain thrombocytopenia precautions, platelet transfusion to be given prior to paracentesis ordered for 03/02 * In regards to chronic anemia, 1 unit of packed RBC given 02/28, 1 unit order 03/04, follow-up CBC to be checked * Continue patient on Lasix, >> Aldactone was on hold secondary to hypotension, resumed on 03/03 with a holding, parameter * Continue Midodrine for blood pressure support * Continue to follow up on hemoglobin * SCDs for DVT prophylaxis * Protonix for GI prophylaxis * CODE STATUS is full code * Prognosis remains extremely guarded secondary to underlying liver disease * Physical therapy occupational therapy consulted to evaluate for discharge disposition Time with Patient: Greater than 30
--- NOTE | 2023-03-04 12:32 | P.PN ---
Subjective Progress Note Date: 03/04/23 Principal diagnosis: Hepatic encephalopathy, ascites This is a 52-year-old female with past medical history of cirrhosis of the liver from underlying alcohol abuse and asthma who presented to the emergency department from her family with concerns of hypoxia. Apparently patient was seen her PCP in the office and was short of breath and her oxygen levels were in the upper 80s. Patient currently is confused and states she can't remember much other than that she was short of breath and dizzy. She is unsure she is currently on diuretics, she states she has had paracentesis before but cannot remember the last time. Reviewing her chart looks like last paracentesis was done on 02/10/2023 with a 9.5 L removed. She is unsure last time she has followed with Dr. Alcantar in the office. She had a chest x-ray on admission showing diffuse interstitial pattern with left lower lobe infiltrate correlate for CHF otherwise consider pneumonia. She had a CT of the pelvis without con trast that showed no abnormality. Ultrasound shows ascites in all 4 quadrants. Home medications include Lasix 40 mg daily Aldactone 100 mg daily and lactulose 30 g by mouth 3 times a day. She received 1 unit of blood on 02/28/2023. Denies any bleeding. Patient also states that she did have an appointment last week Thursday with [facility] liver transplant team. She does not recall any information from that appointment. Apparently her was present with her though and who is currently not here. 03/03/2023 Patient seen and examined today as a follow-up. She still states she has some decreased memory. She has family at the bedside that states that she has been taking her medication daily. States that she usually has 2-3 bowel movements daily. She missed her last appointment with gastroenterology because she was hospitalized. Patient is very jaundiced. She underwent paracentesis yesterday, and she reports 9 L removed. She denies any nausea, vomiting, abdominal pain, or black stool or blood in her stool. Today's labs hemoglobin 7.4 hematocrit 22 platelet count 30,000 sodium 136 potassium 3.2 total bilirubin 18.1 AST 51 ALT 29 ALT 92 ammonia 59 03/04/2023 Patient seen and examined the resting in bed. Still states that she has some difficulty remembering things. No abdominal pain, nausea or vomiting. He denies any blood in her stool or black stool. WBC 4.0 hemoglobin 7.1 platelet count 36,000 and INR 2.7 sodium 136 potassium 3.2 total bilirubin 17.2 AST 37 ALT 26 alkaline phosphatase 81 ammonia 105. Nursing reports patient had she believes 3 bowel movements yesterday me before. 2 this morning. Objective - Vital Signs Vital signs: Vital Signs Temp 97 F L 03/04/23 08:00 Pulse 59 L 03/04/23 08:00 Resp 16 03/04/23 08:00 BP 102/59 03/04/23 08:00 Pulse Ox 97 03/04/23 08:00 FiO2 Intake & Output 03/03/23 03/04/23 03/04/23 18:59 06:59 18:59 Intake Total 246 120 180 Balance 246 120 180 Intake: IV 10 Invasive Line 1 10 Oral 236 120 180 Other: Voiding Method External Catheter External Catheter # Voids 1 - Exam General appearance: The patient is alert, oriented, appears in no acute distress. HET: Head is normocephalic and atraumatic. Conjunctiva pink. Sclera icteric. Neck: Supple without lymphadenopathy. Abdomen: Soft, nontender, nondistended with bowel sounds. No guarding or rigidity. Extremities: Normal skin color and turgor. Lower extremity pitting edema. Skin: No rashes, jaundice. Neurological: No focal deficits. Alert and oriented. - Labs CBC & Chem 7: 03/04/23 10:10 03/04/23 10:10 Labs: Abnormal Lab Results - Last 24 Hours (Table) 03/03/23 03/03/23 03/03/23 Range/Units 09:19 09:19 09:19 RBC 1.79 L (3.80-5.40) m/uL Hgb 7.4 L (11.4-16.0) gm/dL Hct 22.3 L (34.0-46.0) % MCV 124.5 H (80.0-100.0) fL MCH 41.5 H (25.0-35.0) pg RDW 19.6 H (11.5-15.5) % Plt Count 30 L (150-450) k/uL Macrocytosis Marked A PT 24.2 H (10.0-12.5) sec INR 2.4 H (<1.2) Sodium 136 L (137-145) mmol/L Potassium 3.2 L (3.5-5.1) mmol/L Glucose 107 H (74-99) mg/dL Calcium 8.3 L (8.4-10.2) mg/dL Total Bilirubin 18.1 H* (0.2-1.3) mg/dL AST 51 H (14-36) U/L Ammonia (<30) umol/L Albumin 2.9 L (3.5-5.0) g/dL 03/03/23 Range/Units 09:19 RBC (3.80-5.40) m/uL Hgb (11.4-16.0) gm/dL Hct (34.0-46.0) % MCV (80.0-100.0) fL MCH (25.0-35.0) pg RDW (11.5-15.5) % Plt Count (150-450) k/uL Macrocytosis PT (10.0-12.5) sec INR (<1.2) Sodium (137-145) mmol/L Potassium (3.5-5.1) mmol/L Glucose (74-99) mg/dL Calcium (8.4-10.2) mg/dL Total Bilirubin (0.2-1.3) mg/dL AST (14-36) U/L Ammonia 59 H (<30) umol/L Albumin (3.5-5.0) g/dL Assessment and Plan (1) Decompensation of cirrhosis of liver Narrative/Plan: 52-year-old female known to gastroenterology with decompensated cirrhosis of the liver from alcohol abuse and had presented for shortness of breath and dizziness. Gastroenterology consulted for management of cirrhosis. Patient with a distended abdomen, has had previous paracentesis in the past. Appears to be with hepatic encephalopathy, no ammonia levels drawn. Patient with poor memory. Continue diuretics. Continue lactulose. Replace potassium per protocol. Continue alcohol abstinence. Current Visit: Yes Status: Acute Code(s): K72.90 - HEPATIC FAILURE, UNSPECIFIED WITHOUT COMA; K74.60 - UNSPECIFIED CIRRHOSIS OF LIVER SNOMED Code(s): 985660278 (2) Thrombocytopenia Current Visit: Yes Status: Acute Code(s): D69.6 - THROMBOCYTOPENIA, UNSPECIFIED SNOMED Code(s): 683748208 (3) Ascites Narrative/Plan: Therapeutic paracentesis as needed. Patient underwent paracentesis yesterday with 9 L removed. Discussed importance of low sodium diet. Current Visit: No Status: Acute Code(s): R18.8 - OTHER ASCITES SNOMED Code(s): 789554987 (4) Hepatic encephalopathy Narrative/Plan: Discussed with patient and family member importance of taking lactulose every day and titrate to have 3-4 bowel movements daily. Patient seems more confused give fourth toes if needed. They both verbalized understanding. Current Visit: No Status: Acute Code(s): K76.82 - HEPATIC ENCEPHALOPATHY SNOMED Code(s): 28819924 (5) Hypokalemia Narrative/Plan: Replace per protocol Current Visit: No Status: Acute Code(s): E87.6 - HYPOKALEMIA SNOMED Code(s): 91264376 Plan: 1. Continue symptomatic and supportive care 2. Daily CBC transfuse for hemoglobin less than 7 3. Daily CMP, ammonia 4. Lactulose 30 g 3 times a day titrate to 3-4 bowel movements daily. Will give extra dose today as ammonia continues to increase 5. Add Xifaxan 550 mg twice a day 6. Continue Lasix 40 mg daily and spironolactone 100 mg daily 7. Replace potassium per protocol 8. Continue alcohol abstinence 9. Low sodium diet 10. Follow-up with gastroenterology one week after discharge 11. Anticipate discharge in the next 24-48 hours once ammonia is stabilized Thank you for this consultation, we will continue to follow. Dr. Liv Alcantar I agree with the dictator's note, documented as a scribe by Valery Flaherty.
[2023-03-04] MEDS ORDERED: LACTULOSE 20 GM/30 ML CUP PO ONE (13:00)
[2023-03-04] MEDS: RIFAXIMIN 550 MG TABLET PO SCH (21:56)
[2023-03-05] MEDS: MIDODRINE 5 MG TAB PO SCH ×3 (06:48→16:43)
[2023-03-05] MEDS: RIFAXIMIN 550 MG TABLET PO SCH ×2 (09:11→22:31)
[2023-03-05] MEDS: SPIRONOLACTONE 25 MG TAB PO SCH (09:11)
[2023-03-05] MEDS: FLUoxetine HCL 20 MG CAP PO SCH (09:11)
[2023-03-05] MEDS: FUROSEMIDE 40 MG TAB PO SCH (09:11)
[2023-03-05] MEDS: levETIRAcetam 500 MG TAB PO SCH ×2 (09:11→22:31)
[2023-03-05] MEDS: PANTOPRAZOLE 40 MG TABLET PO SCH (09:11)
[2023-03-05] MEDS: LACTULOSE 20 GM/30 ML CUP PO SCH ×3 (09:11→22:31)
[2023-03-05] MEDS: THIAMINE 100 MG TAB PO SCH (09:11)
--- NOTE | 2023-03-05 10:58 | US ---
EXAMINATION TYPE: US abdomen limited DATE OF EXAM: 03/05/2023 COMPARISON: NONE CLINICAL INDICATION: Female, 52 years old with history of evaluate for paracentesis; ascites, distent ion Moderate ascites noted within all four quadrants IMPRESSION: Moderate ascites
[2023-03-05 11:19] LABS: Anisocytosis Moderate; HCT 30.8 % (34.0-46.0); Hypochromasia Marked; MCH 40.3 pg (25.0-35.0); MCHC 33.9 g/dL (31.0-37.0); MCV 118.9 fL (80.0-100.0); Macrocytosis Marked; Mean Platelet Volume 9.5; Poikilocytosis Slight; RBC 2.59 m/uL (3.80-5.40); RDW 22.9 % (11.5-15.5); WBC 6.8 k/uL (3.8-10.6)
[2023-03-05] MEDS: PHYTONADIONE 10 MG in SODIUM CHLORIDE 0.9% 50 ML IVPB SCH (11:23)
[2023-03-05 11:50] LABS: African American GFR (CKD) >90 (>60 ml/min/1.73 sqM); Anion Gap 17 mmol/L; Blood Urea Nitrogen 12 mg/dL (7-17); Calcium 9.1 mg/dL (8.4-10.2); Carbon Dioxide 19 mmol/L (22-30); Chloride 102 mmol/L (98-107); Glucose 123 mg/dL (74-99); Non-African American GFR(CKD) >90 (>60 ml/min/1.73 sqM); Potassium 3.5 mmol/L (3.5-5.1); Sodium 138 mmol/L (137-145)
[2023-03-05 12:11] LABS: HGB 10.5 gm/dL (11.4-16.0); Platelet Count 30 k/uL (150-450)
--- NOTE | 2023-03-05 12:33 | P.PN ---
Subjective Progress Note Date: 03/05/23 Principal diagnosis: Hepatic encephalopathy, ascites This is a 52-year-old female with past medical history of cirrhosis of the liver from underlying alcohol abuse and asthma who presented to the emergency department from her family with concerns of hypoxia. Apparently patient was seen her PCP in the office and was short of breath and her oxygen levels were in the upper 80s. Patient currently is confused and states she can't remember much other than that she was short of breath and dizzy. She is unsure she is currently on diuretics, she states she has had paracentesis before but cannot remember the last time. Reviewing her chart looks like last paracentesis was done on 02/10/2023 with a 9.5 L removed. She is unsure last time she has followed with Dr. Alcantar in the office. She had a chest x-ray on admission showing diffuse interstitial pattern with left lower lobe infiltrate correlate for CHF otherwise consider pneumonia. She had a CT of the pelvis without con trast that showed no abnormality. Ultrasound shows ascites in all 4 quadrants. Home medications include Lasix 40 mg daily Aldactone 100 mg daily and lactulose 30 g by mouth 3 times a day. She received 1 unit of blood on 02/28/2023. Denies any bleeding. Patient also states that she did have an appointment last week Thursday with [facility] liver transplant team. She does not recall any information from that appointment. Apparently her was present with her though and who is currently not here. 03/03/2023 Patient seen and examined today as a follow-up. She still states she has some decreased memory. She has family at the bedside that states that she has been taking her medication daily. States that she usually has 2-3 bowel movements daily. She missed her last appointment with gastroenterology because she was hospitalized. Patient is very jaundiced. She underwent paracentesis yesterday, and she reports 9 L removed. She denies any nausea, vomiting, abdominal pain, or black stool or blood in her stool. Today's labs hemoglobin 7.4 hematocrit 22 platelet count 30,000 sodium 136 potassium 3.2 total bilirubin 18.1 AST 51 ALT 29 ALT 92 ammonia 59 03/04/2023 Patient seen and examined the resting in bed. Still states that she has some difficulty remembering things. No abdominal pain, nausea or vomiting. He denies any blood in her stool or black stool. WBC 4.0 hemoglobin 7.1 platelet count 36,000 and INR 2.7 sodium 136 potassium 3.2 total bilirubin 17.2 AST 37 ALT 26 alkaline phosphatase 81 ammonia 105. Nursing reports patient had she believes 3 bowel movements yesterday me before. 2 this morning. 03/05/2023 Patient seen and examined today as a follow-up. She is sitting up in the recliner. States she is feeling better today more alert. States she's just been real sleepy because she is bored and has been laying in bed. States that she had multiple bowel movements yesterday and at least 2 already today. Denies any abdominal pain, nausea or vomiting. 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 Labs are currently pending. Objective - Vital Signs Vital signs: Vital Signs Temp 97.5 F L 03/04/23 20:00 Pulse 94 03/05/23 02:00 Resp 16 03/05/23 02:00 BP 109/68 03/05/23 02:00 Pulse Ox 94 L 03/05/23 02:00 FiO2 Intake & Output 03/04/23 03/05/23 03/05/23 18:59 06:59 18:59 Intake Total 490 240 Output Total 0 Balance 490 0 240 Weight 67.5 kg Intake: Oral 180 240 Blood Product 310 Rc As-1 Unit 310 [id number] Output: Urine 0 Other: Voiding Method External Catheter External Catheter # Voids 1 # Bowel Movements 1 2 - Exam General appearance: The patient is alert, oriented, appears in no acute distress. HET: Head is normocephalic and atraumatic. Conjunctiva pink. Sclera icteric. Neck: Supple without lymphadenopathy. Abdomen: Soft, nontender, distended with ascites, umbilical hernia easily reduced. No guarding or rigidity. Extremities: Normal skin color and turgor. Lower extremity pitting edema. Skin: No rashes, jaundice. Neurological: No focal deficits. Alert and oriented. - Labs CBC & Chem 7: 03/05/23 11:08 03/05/23 11:08 Labs: Abnormal Lab Results - Last 24 Hours (Table) 03/04/23 03/04/23 03/04/23 Range/Units 10:10 10:10 10:10 RBC 1.64 L (3.80-5.40) m/uL Hgb 7.1 L (11.4-16.0) gm/dL Hct 20.3 L (34.0-46.0) % MCV 123.7 H (80.0-100.0) fL MCH 43.1 H (25.0-35.0) pg RDW 18.7 H (11.5-15.5) % Plt Count 36 L (150-450) k/uL Macrocytosis Marked A PT 26.8 H (10.0-12.5) sec INR 2.7 H (<1.2) Sodium 136 L (137-145) mmol/L Potassium 3.2 L (3.5-5.1) mmol/L Glucose 171 H (74-99) mg/dL Calcium 8.1 L (8.4-10.2) mg/dL Total Bilirubin 17.2 H* (0.2-1.3) mg/dL AST 37 H (14-36) U/L Ammonia (<30) umol/L Total Protein 5.9 L (6.3-8.2) g/dL Albumin 2.7 L (3.5-5.0) g/dL Crossmatch 03/04/23 03/04/23 Range/Units 10:10 12:37 RBC (3.80-5.40) m/uL Hgb (11.4-16.0) gm/dL Hct (34.0-46.0) % MCV (80.0-100.0) fL MCH (25.0-35.0) pg RDW (11.5-15.5) % Plt Count (150-450) k/uL Macrocytosis PT (10.0-12.5) sec INR (<1.2) Sodium (137-145) mmol/L Potassium (3.5-5.1) mmol/L Glucose (74-99) mg/dL Calcium (8.4-10.2) mg/dL Total Bilirubin (0.2-1.3) mg/dL AST (14-36) U/L Ammonia 105 H (<30) umol/L Total Protein (6.3-8.2) g/dL Albumin (3.5-5.0) g/dL Crossmatch See Detail Assessment and Plan (1) Decompensation of cirrhosis of liver Narrative/Plan: 52-year-old female known to gastroenterology with decompensated cirrhosis of the liver from alcohol abuse and had presented for shortness of breath and dizziness. Gastroenterology consulted for management of cirrhosis. Patient with a distended abdomen, has had previous paracentesis in the past. Appears to be with hepatic encephalopathy, no ammonia levels drawn. Patient with poor memory. Continue diuretics. Continue lactulose. Replace potassium per protocol. Continue alcohol abstinence. Current Visit: Yes Status: Acute Code(s): K72.90 - HEPATIC FAILURE, UNSPECIFIED WITHOUT COMA; K74.60 - UNSPECIFIED CIRRHOSIS OF LIVER SNOMED Code(s): 855627341 (2) Thrombocytopenia Current Visit: Yes Status: Acute Code(s): D69.6 - THROMBOCYTOPENIA, UNSPECIFIED SNOMED Code(s): 620807600 (3) Ascites Narrative/Plan: Therapeutic paracentesis as needed. Patient underwent paracentesis yesterday with 9 L removed. Discussed importance of low sodium diet. Current Visit: No Status: Acute Code(s): R18.8 - OTHER ASCITES SNOMED Code(s): 243242227 (4) Hepatic encephalopathy Narrative/Plan: Discussed with patient and family member importance of taking lactulose every day and titrate to have 3-4 bowel movements daily. Patient seems more confused give fourth toes if needed. They both verbalized understanding. Xifaxan 550 mg twice a day added. Current Visit: No Status: Acute Code(s): K76.82 - HEPATIC ENCEPHALOPATHY SNOMED Code(s): 42124044 (5) Hypokalemia Narrative/Plan: Replace per protocol Current Visit: No Status: Acute Code(s): E87.6 - HYPOKALEMIA SNOMED Cod e(s): 96964754 Plan: 1. Continue symptomatic and supportive care 2. Daily CBC transfuse for hemoglobin less than 7 3. Daily CMP, ammonia 4. Lactulose 30 g 3 times a day titrate to 3-4 bowel movements daily 5. Add Xifaxan 550 mg twice a day 6. Continue Lasix 40 mg daily and spironolactone 100 mg daily 7. Replace potassium per protocol 8. Continue alcohol abstinence 9. Low sodium diet 10. Abdominal ultrasound ordered for possible paracentesis 11. Follow-up with gastroenterology one week after discharge Thank you for this consultation, we will continue to follow. Dr. Liv Alcantar I agree with the dictator's note, documented as a scribe by Valery Flaherty.
--- NOTE | 2023-03-05 13:02 | P.PN ---
Subjective Progress Note Date: 03/05/23 * 52-year-old lady with past medical history significant for decompensated liver cirrhosis, alcohol liver disease, history of alcohol use disorder, asthma, anxiety, depression, bipolar disorder, chronic anemia presents to the emergency department with complains of abdominal distention. Patient was recently admitted in the hospital from 01/31/2023 discharge on 02/10/2023 patient had high-volume paracentesis completed on 02/10 with 9.6 L of fluid removed. Patient presents with complains of shortness of breath and dizziness. Patient was sent in from her PCP office secondary to increased lower extremity swelling and shortness of breath ,She has patient has followed up with gastroenterology Dr. Alcantar. * Workup in ER included CBC which were WBC of 8.3 hemoglobin 8.2 platelet count of 34,000. Serum chemistry obtained sodium 131 potassium 4.9 carbon dioxide 20 B UN 14 creatinine 0.9 plasma lactate of 3, total bilirubin of 23 AST of 61 a LT of 38 albumin of 3.3 * Patient has decompensated liver cirrhosis, with recurrent hospitalization, since September 2022 this is her 6th hospitalization. Her prognosis remains guarded was discussed with patient as well secondary to worsening liver cirrhosis * 02/28/2023: Patient seen and evaluated and bedside, patient alert and oriented 3, patient noted to have low blood pressure, hemoglobin noted to be on at 7.3, 1 unit of packed RBC ordered, it led count 27, INR 2.4, sodium 135 potassium 3.4 bilirubin 21.1 AST 52 ALT 31 albumin 2.9. Care plan and CODE STATUS discussed with patient. Patient explained the morbidity of underlying condition and was explained the prognosis as well. * 03/01/2023 : Patient seen and evaluated, patient alert and oriented 4, care plan discussed discussed with the patient has ever been seen by hepatology, patient states she might have had an appointment at [place] however does not remember. Liver profile and PT/INR continues to remain chronically elevated. Discussed with patient need for transfer to tertiary care center, at this time patient would want to do it if it's absolutely needed otherwise she would like to stay here in [place] * 03/02/2023: Patient seen and evaluated bedside, patient is alert and oriented 4, patient is a paracentesis today, potassium noted to be 3 which will be replaced, bilirubin 19, hemoglobin 7.6 platelet count of 30,000. Patient received platelet and neck Pain, INR 2.4 and follow-up. Will request gastroenterology evaluation as well * 03/03/2023 : Patient seen and evaluated bedside, patient is alert and oriented 4, mother at bedside, blood work reviewed, patient is status post p aracentesis about 8.2 L of fluid removed, patient to be given albumin today, continue to follow up on CBC and platelet count potential discharge home within the next 24 hours * 03/04/2023: Patient seen and evaluated bedside patient is alert however does get confused during conversation, hemoglobin 7.1 patient to be given 1 unit of packed RBC, patient very weak will need physical therapy occupational therapy evaluation patient is in agreement and going to subacute rehab. We will give blood and follow-up on CBC tomorrow. Potential discharge to subacute rehab if patient remains hemodynamically stable. Potassium was replaced as well * 03/05/2023 : Patient seen and evaluated bedside, patient appears well, ultrasound abdomen does show ascites fluid, continue optimize medical management, gastro-nephrology following as well will coordinate with patient regarding discharge home versus rehab facility. REVIEW OF SYSTEMS: Weakness, lower extremity swelling, abdominal distention IMPROVED CONSTITUTIONAL: No fever, no malaise, no fatigue. HEENT: No recent visual problems or hearing problems. Denied any sore throat. CARDIOVASCULAR: No chest pain, orthopnea, PND, no palpitations, no syncope. PULMONARY: No shortness of breath, no cough, no hemoptysis. GASTROINTESTINAL: Weakness, lower extremity swelling, abdominal distention NEUROLOGICAL: No headaches, no weakness, no numbness. HEMATOLOGICAL: Denies any bleeding or petechiae. GENITOURINARY: Denies any burning micturition, frequency, or urgency. MUSCULOSKELETAL/RHEUMATOLOGICAL: Denies any joint pain, swelling, or any muscle pain. ENDOCRINE: Denies any polyuria or polydipsia. PHYSICAL EXAMINATION: GENERAL: The patient is alert and oriented x3, deconditioned, chronically ill, yellow discoloration, Pale HEENT: Pupils are round and equally reacting to light. EOMI. scleral icterus. CARDIOVASCULAR: S1 and S2 present. Tachycardia noted PULMONARY: Chest is clear to auscultation, no wheezing or crackles. ABDOMEN: Soft, nontender, distended, nontender on palpation MUSCULOSKELETAL: No joint swelling or deformity. EXTREMITIES: pedal edema. NEUROLOGICAL: Gross neurological examination did not reveal any focal deficits. Intermittent confusion during conversation Objective - Vital Signs Vital signs: Vital Signs Temp 98.2 F 03/05/23 08:10 Pulse 99 03/05/23 08:10 Resp 16 03/05/23 08:10 BP 92/55 03/05/23 08:10 Pulse Ox 99 03/05/23 08:10 FiO2 Intake & Output 03/04/23 03/05/23 03/05/23 18:59 06:59 18:59 Intake Total 490 240 Output Total 0 Balance 490 0 240 Weight 67.5 kg 67.5 kg Intake: Oral 180 240 Blood Product 310 Rc As-1 Unit 310 [id number] Output: Urine 0 Other: Voiding Method External Catheter External Catheter External Catheter # Voids 1 # Bowel Movements 1 2 1 - Labs CBC & Chem 7: 03/05/23 11:08 03/05/23 11:08 Labs: Abnormal Lab Results - Last 24 Hours (Table) 03/04/23 03/05/23 03/05/23 Range/Units 12:37 11:08 11:08 RBC 2.59 L (3.80-5.40) m/uL Hgb 10.5 L D (11.4-16.0) gm/dL Hct 30.8 L (34.0-46.0) % MCV 118.9 H (80.0-100.0) fL MCH 40.3 H (25.0-35.0) pg RDW 22.9 H (11.5-15.5) % Plt Count 30 L (150-450) k/uL Macrocytosis Marked A Carbon Dioxide 19 L (22-30) mmol/L Glucose 123 H (74-99) mg/dL Ammonia (<30) umol/L Crossmatch See Detail 03/05/23 Range/Units 11:08 RBC (3.80-5.40) m/uL Hgb (11.4-16.0) gm/dL Hct (34.0-46.0) % MCV (80.0-100.0) fL MCH (25.0-35.0) pg RDW (11.5-15.5) % Plt Count (150-450) k/uL Macrocytosis Carbon Dioxide (22-30) mmol/L Glucose (74-99) mg/dL Ammonia 42 H (<30) umol/L Crossmatch Assessment and Plan Assessment: Assessment and plan * Decompensated liver cirrhosis with history of alcohol liver disease * Hyperbilirubinemia secondary to cirrhosis, recurrent ascites * Lactic acidosis likely hepatic in origin * Seizure disorder with history of breakthrough seizures * Coagulopathy with elevated INR secondary to hepatic disease * Chronic thrombocytopenia * Chronic anemia * In regards to decompensated liver cirrhosis, IR was consulted for paracentesis scheduled for 03/02>> 8200 mL fluid removed , IV vitamin K daily >> follow up on INR levels elevated, patient received platelet and FFP 03/02 * In regards to seizure disorder continue patient on Keppra * In regards to chronic thrombocytopenia, maintain thrombocytopenia precautions, platelet transfusion to be given prior to paracentesis ordered for 03/02 * In regards to chronic anemia, 1 unit of packed RBC given 02/28, 1 unit order 03/04, follow-up myoglobin 10.5, we'll follow-up on CBC * Continue patient on Lasix, >> Aldactone was on hold secondary to hypotension, resumed on 03/03 with a holding, parameter * Continue Midodrine for blood pressure support * Continue to follow up on hemoglobin * SCDs for DVT prophylaxis * Protonix for GI prophylaxis * CODE STATUS is full code * Prognosis remains extremely guarded secondary to underlying liver disease * Physical therapy occupational therapy consulted to evaluate for discharge disposition
[2023-03-05 14:59] LABS: INR 2.4 (<1.2); Prothrombin Time 23.7 sec (10.0-12.5)
[2023-03-05 19:57] LABS: Glucose,Whole Blood 225 mg/dL (70-110)
[2023-03-06] MEDS ORDERED: ALBUMIN HUMAN 25% 50 ML in EMPTY BAG 1 BAG IVPB SCH (06:30)
[2023-03-06] MEDS: MIDODRINE 5 MG TAB PO SCH ×3 (06:55→16:30)
--- NOTE | 2023-03-06 07:52 | P.PN ---
Subjective Progress Note Date: 03/06/23 Principal diagnosis: Hepatic encephalopathy, ascites This is a 52-year-old female with past medical history of cirrhosis of the liver from underlying alcohol abuse and asthma who presented to the emergency department from her family with concerns of hypoxia. Apparently patient was seen her PCP in the office and was short of breath and her oxygen levels were in the upper 80s. Patient currently is confused and states she can't remember much other than that she was short of breath and dizzy. She is unsure she is currently on diuretics, she states she has had paracentesis before but cannot remember the last time. Reviewing her chart looks like last paracentesis was done on 02/10/2023 with a 9.5 L removed. She is unsure last time she has followed with Dr. Alcantar in the office. She had a chest x-ray on admission showing diffuse interstitial pattern with left lower lobe infiltrate correlate for CHF otherwise consider pneumonia. She had a CT of the pelvis without con trast that showed no abnormality. Ultrasound shows ascites in all 4 quadrants. Home medications include Lasix 40 mg daily Aldactone 100 mg daily and lactulose 30 g by mouth 3 times a day. She received 1 unit of blood on 02/28/2023. Denies any bleeding. Patient also states that she did have an appointment last week Thursday with [facility] liver transplant team. She does not recall any information from that appointment. Apparently her was present with her though and who is currently not here. 03/03/2023 Patient seen and examined today as a follow-up. She still states she has some decreased memory. She has family at the bedside that states that she has been taking her medication daily. States that she usually has 2-3 bowel movements daily. She missed her last appointment with gastroenterology because she was hospitalized. Patient is very jaundiced. She underwent paracentesis yesterday, and she reports 9 L removed. She denies any nausea, vomiting, abdominal pain, or black stool or blood in her stool. Today's labs hemoglobin 7.4 hematocrit 22 platelet count 30,000 sodium 136 potassium 3.2 total bilirubin 18.1 AST 51 ALT 29 ALT 92 ammonia 59 03/04/2023 Patient seen and examined the resting in bed. Still states that she has some difficulty remembering things. No abdominal pain, nausea or vomiting. He denies any blood in her stool or black stool. WBC 4.0 hemoglobin 7.1 platelet count 36,000 and INR 2.7 sodium 136 potassium 3.2 total bilirubin 17.2 AST 37 ALT 26 alkaline phosphatase 81 ammonia 105. Nursing reports patient had she believes 3 bowel movements yesterday me before. 2 this morning. 03/05/2023 Patient seen and examined today as a follow-up. She is sitting up in the recliner. States she is feeling better today more alert. States she's just been real sleepy because she is bored and has been laying in bed. States that she had multiple bowel movements yesterday and at least 2 already today. Denies any abdominal pain, nausea or vomiting. master control technician was unable to draw blood this morning, waiting another section laborer. Labs are currently pending. 03/06/2023 Patient seen and examined as a follow-up. She is alert and oriented. Abdominal ultrasound showed moderate amount of ascites yesterday. We'll plan today for paracentesis before discharge. She states she has some abdominal distention but no pain. No nausea or vomiting. She remains quite jaundice however her numbers have been improving. Ammonia level improved significantly yesterday at 42 down from 105. Objective - Vital Signs Vital signs: Vital Signs Temp 98.2 F 03/06/23 06:13 Pulse 102 H 03/06/23 06:13 Resp 18 03/06/23 06:13 BP 92/60 03/06/23 06:13 Pulse Ox 99 03/06/23 06:13 FiO2 Intake & Output 03/05/23 03/06/23 03/06/23 18:59 06:59 18:59 Intake Total 530 Output Total 1 Balance 530 -1 Weight 67.5 kg Intake: Intake, IV Titration 50 Amount Phytonadione 10 mg In 50 Sodium Chloride 0.9% 50 ml @ 100 mls/hr IVPB DAILY [facility] Rx#:[id number] Oral 480 Output: Stool 1 Other: Voiding Method External Catheter External Catheter # Voids 1 1 # Bowel Movements 1 - Exam General appearance: The patient is alert, oriented, appears in no acute distress. HET: Head is normocephalic and atraumatic. Conjunctiva pink. Sclera icteric. Neck: Supple without lymphadenopathy. Abdomen: Soft, nontender, distended with ascites, umbilical hernia easily reduced. No guarding or rigidity. Extremities: Normal skin color and turgor. Lower extremity pitting edema. Skin: No rashes, jaundice. Neurological: No focal deficits. Alert and oriented. - Labs CBC & Chem 7: 03/05/23 11:08 03/05/23 11:08 Labs: Abnormal Lab Results - Last 24 Hours (Table) 03/05/23 03/05/23 03/05/23 Range/Units 11:08 11:08 11:08 RBC 2.59 L (3.80-5.40) m/uL Hgb 10.5 L D (11.4-16.0) gm/dL Hct 30.8 L (34.0-46.0) % MCV 118.9 H (80.0-100.0) fL MCH 40.3 H (25.0-35.0) pg RDW 22.9 H (11.5-15.5) % Plt Count 30 L (150-450) k/uL Macrocytosis Marked A PT (10.0-12.5) sec INR (<1.2) Carbon Dioxide 19 L (22-30) mmol/L Glucose 123 H (74-99) mg/dL POC Glucose (mg/dL) (70-110) mg/dL Ammonia 42 H (<30) umol/L 03/05/23 03/05/23 Range/Units 13:59 19:54 RBC (3.80-5.40) m/uL Hgb (11.4-16.0) gm/dL Hct (34.0-46.0) % MCV (80.0-100.0) fL MCH (25.0-35.0) pg RDW (11.5-15.5) % Plt Count (150-450) k/uL Macrocytosis PT 23.7 H (10.0-12.5) sec INR 2.4 H (<1.2) Carbon Dioxide (22-30) mmol/L Glucose (74-99) mg/dL POC Glucose (mg/dL) 225 H (70-110) mg/dL Ammonia (<30) umol/L Assessment and Plan (1) Decompensation of cirrhosis of liver Narrative/Plan: 52-year-old female known to gastroenterology with decompensated cirrhosis of the liver from alcohol abuse and had presented for shortness of breath and dizziness. Gastroenterology consulted for management of cirrhosis. Patient with a distended abdomen, has had previous paracentesis in the past. Appears to be with hepatic encephalopathy, no ammonia levels drawn. Patient with poor memory. Continue diuretics. Continue lactulose. Replace potassium per protocol. Continue alcohol abstinence. Current Visit: Yes Status: Acute Code(s): K72.90 - HEPATIC FAILURE, UNSPECIFIED WITHOUT COMA; K74.60 - UNSPECIFIED CIRRHOSIS OF LIVER SNOMED Code(s): 531323222 (2) Thrombocytopenia Current Visit: Yes Status: Acute Code(s): D69.6 - THROMBOCYTOPENIA, UNSPECIFIED SNOMED Code(s): 862880188 (3) Ascites Narrative/Plan: Therapeutic paracentesis as needed. Patient underwent paracentesis yesterday with 9 L removed. Discussed importance of low sodium diet. Current Visit: No Status: Acute Code(s): R18.8 - OTHER ASCITES SNOMED Code(s): 520405311 (4) Hepatic encephalopathy Narrative/Plan: Discussed with patient and family member importance of taking lactulose every day and titrate to have 3-4 bowel movements daily. Patient seems more confused give fourth toes if needed. They both verbalized understanding. Xifaxan 550 mg twice a day added. Current Visit: No Status: Acute Code(s): K76.82 - HEPATIC ENCEPHALOPATHY SNOMED Code(s): 23586756 (5) Hypokalemia Narrative/Plan: Replace per protocol Current Visit: No Status: Acute Code(s): E87.6 - HYPOKALEMIA SNOMED Code(s): 40382784 Plan: 1. Continue symptomatic and supportive care 2. Lactulose 30 g 3 times a day titrate to 3-4 bowel movements daily 3. Continue Xifaxan 550 mg twice a day 5. Continue Lasix 40 mg daily and spironolactone 100 mg daily 6. Replace potassium per protocol 7. Continue alcohol abstinence 8. Low sodium diet 9. Paracentesis ordered for today prior to discharge, albumin order to give with paracentesis 10. Follow-up with gastroenterology one week Thank you for this consultation, she is cleared for discharge after paracentesis. We will sign off at this time. Dr. Liv Alcantar I agree with the dictator's note, documented as a scribe by Valery Flaherty.
[2023-03-06] MEDS: LACTULOSE 20 GM/30 ML CUP PO SCH ×3 (08:51→22:04)
[2023-03-06] MEDS: SPIRONOLACTONE 25 MG TAB PO SCH (08:52)
[2023-03-06] MEDS: FUROSEMIDE 40 MG TAB PO SCH (08:52)
[2023-03-06] MEDS: THIAMINE 100 MG TAB PO SCH (08:52)
[2023-03-06] MEDS: FLUoxetine HCL 20 MG CAP PO SCH (08:52)
[2023-03-06] MEDS: PANTOPRAZOLE 40 MG TABLET PO SCH (08:52)
[2023-03-06] MEDS: levETIRAcetam 500 MG TAB PO SCH ×2 (08:52→22:04)
[2023-03-06] MEDS: RIFAXIMIN 550 MG TABLET PO SCH ×2 (08:53→22:04)
[2023-03-06 08:57] LABS: Anisocytosis Moderate; HCT 24.1 % (34.0-46.0); Hypochromasia Moderate; MCH 39.9 pg (25.0-35.0); MCHC 33.9 g/dL (31.0-37.0); MCV 117.9 fL (80.0-100.0); Macrocytosis Marked; Mean Platelet Volume 8.7; Poikilocytosis Moderate; RBC 2.04 m/uL (3.80-5.40); RDW 23.7 % (11.5-15.5); WBC 5.7 k/uL (3.8-10.6)
[2023-03-06 09:05] LABS: ALT 32 U/L (4-34); AST 52 U/L (14-36); African American GFR (CKD) 86 (>60 ml/min/1.73 sqM); Albumin 2.8 g/dL (3.5-5.0); Alkaline Phosphatase 103 U/L (38-126); Anion Gap 10 mmol/L; Blood Urea Nitrogen 17 mg/dL (7-17); Calcium 8.5 mg/dL (8.4-10.2); Carbon Dioxide 23 mmol/L (22-30); Chloride 101 mmol/L (98-107); Glucose 94 mg/dL (74-99); Non-African American GFR(CKD) 75 (>60 ml/min/1.73 sqM); Potassium 3.9 mmol/L (3.5-5.1); Sodium 134 mmol/L (137-145); Total Protein 6.1 g/dL (6.3-8.2)
[2023-03-06 09:14] LABS: Platelet Count 24 k/uL (150-450); Total Bilirubin 18.9 mg/dL (0.2-1.3)
[2023-03-06 09:17] LABS: HGB 8.2 gm/dL (11.4-16.0); INR 2.6 (<1.2); Prothrombin Time 25.8 sec (10.0-12.5)
[2023-03-06] MEDS: PHYTONADIONE 10 MG in SODIUM CHLORIDE 0.9% 50 ML IVPB SCH (10:41)
--- NOTE | 2023-03-06 12:47 | P.PN ---
Subjective Progress Note Date: 03/06/23 Principal diagnosis: Hepatic encephalopathy, ascites This is a 52-year-old female with past medical history of cirrhosis of the liver from underlying alcohol abuse and asthma who presented to the emergency department from her family with concerns of hypoxia. Apparently patient was seen her PCP in the office and was short of breath and her oxygen levels were in the upper 80s. Patient currently is confused and states she can't remember much other than that she was short of breath and dizzy. She is unsure she is currently on diuretics, she states she has had paracentesis before but cannot remember the last time. Reviewing her chart looks like last paracentesis was done on 02/10/2023 with a 9.5 L removed. She is unsure last time she has followed with Dr. Alcantar in the office. She had a chest x-ray on admission showing diffuse interstitial pattern with left lower lobe infiltrate correlate for CHF otherwise consider pneumonia. She had a CT of the pelvis without con trast that showed no abnormality. Ultrasound shows ascites in all 4 quadrants. Home medications include Lasix 40 mg daily Aldactone 100 mg daily and lactulose 30 g by mouth 3 times a day. She received 1 unit of blood on 02/28/2023. Denies any bleeding. Patient also states that she did have an appointment last week Thursday with [facility] liver transplant team. She does not recall any information from that appointment. Apparently her was present with her though and who is currently not here. 03/03/2023 Patient seen and examined today as a follow-up. She still states she has some decreased memory. She has family at the bedside that states that she has been taking her medication daily. States that she usually has 2-3 bowel movements daily. She missed her last appointment with gastroenterology because she was hospitalized. Patient is very jaundiced. She underwent paracentesis yesterday, and she reports 9 L removed. She denies any nausea, vomiting, abdominal pain, or black stool or blood in her stool. Today's labs hemoglobin 7.4 hematocrit 22 platelet count 30,000 sodium 136 potassium 3.2 total bilirubin 18.1 AST 51 ALT 29 ALT 92 ammonia 59 03/04/2023 Patient seen and examined the resting in bed. Still states that she has some difficulty remembering things. No abdominal pain, nausea or vomiting. He denies any blood in her stool or black stool. WBC 4.0 hemoglobin 7.1 platelet count 36,000 and INR 2.7 sodium 136 potassium 3.2 total bilirubin 17.2 AST 37 ALT 26 alkaline phosphatase 81 ammonia 105. Nursing reports patient had she believes 3 bowel movements yesterday me before. 2 this morning. 03/05/2023 Patient seen and examined today as a follow-up. She is sitting up in the recliner. States she is feeling better today more alert. States she's just been real sleepy because she is bored and has been laying in bed. States that she had multiple bowel movements yesterday and at least 2 already today. Denies any abdominal pain, nausea or vomiting. seal delivery vehicle team technician was unable to draw blood this morning, waiting another golf course laborer. Labs are currently pending. 03/06/2023 Patient seen and examined as a follow-up. She is alert and oriented. Abdominal ultrasound showed moderate amount of ascites yesterday. We'll plan today for paracentesis before discharge. She states she has some abdominal distention but no pain. No nausea or vomiting. She remains quite jaundice however her numbers have been improving. Ammonia level improved significantly yesterday at 42 down from 105. 12 Objective - Vital Signs Vital signs: Vital Signs Temp 97.9 F 03/06/23 08:46 Pulse 99 03/06/23 11:08 Resp 20 03/06/23 11:08 BP 106/65 03/06/23 11:08 Pulse Ox 100 03/06/23 11:08 FiO2 Intake & Output 03/05/23 03/06/23 03/06/23 18:59 06:59 18:59 Intake Total 530 370 Output Total 1 1 Balance 530 -1 369 Weight 67.5 kg Intake: IV 10 Invasive Line 3 10 Intake, IV Titration 50 Amount Phytonadione 10 mg In 50 Sodium Chloride 0.9% 50 ml @ 100 mls/hr IVPB DAILY [facility] Rx#:[id number] Oral 480 360 Output: Stool 1 1 Other: Voiding Method External Catheter External Catheter External Catheter # Voids 1 1 # Bowel Movements 1 - Labs CBC & Chem 7: 03/06/23 08:25 03/06/23 08:25 Labs: Abnormal Lab Results - Last 24 Hours (Table) 03/05/23 03/05/23 03/05/23 Range/Units 11:08 13:59 19:54 RBC (3.80-5.40) m/uL Hgb (11.4-16.0) gm/dL Hct (34.0-46.0) % MCV (80.0-100.0) fL MCH (25.0-35.0) pg RDW (11.5-15.5) % Plt Count (150-450) k/uL Macrocytosis PT 23.7 H (10.0-12.5) sec INR 2.4 H (<1.2) Sodium (137-145) mmol/L POC Glucose (mg/dL) 225 H (70-110) mg/dL Total Bilirubin (0.2-1.3) mg/dL AST (14-36) U/L Ammonia 42 H (<30) umol/L Total Protein (6.3-8.2) g/dL Albumin (3.5-5.0) g/dL 03/06/23 03/06/23 03/06/23 Range/Units 08:25 08:25 08:25 RBC 2.04 L (3.80-5.40) m/uL Hgb 8.2 L D (11.4-16.0) gm/dL Hct 24.1 L (34.0-46.0) % MCV 117.9 H (80.0-100.0) fL MCH 39.9 H (25.0-35.0) pg RDW 23.7 H (11.5-15.5) % Plt Count 24 L (150-450) k/uL Macrocytosis Marked A PT 25.8 H (10.0-12.5) sec INR 2.6 H (<1.2) Sodium 134 L (137-145) mmol/L POC Glucose (mg/dL) (70-110) mg/dL Total Bilirubin 18.9 H* (0.2-1.3) mg/dL AST 52 H (14-36) U/L Ammonia (<30) umol/L Total Protein 6.1 L (6.3-8.2) g/dL Albumin 2.8 L (3.5-5.0) g/dL Assessment and Plan (1) Decompensation of cirrhosis of liver Narrative/Plan: 52-year-old female known to gastroenterology with decompensated cirrhosis of the liver from alcohol abuse and had presented for shortness of breath and dizziness. Gastroenterology consulted for management of cirrhosis. Patient with a distended abdomen, has had previous paracentesis in the past. Appears to be with hepatic encephalopathy, no ammonia levels drawn. Patient with poor memory. Continue diuretics. Continue lactulose. Replace potassium per protocol. Continue alcohol abstinence. Current Visit: Yes Status: Acute Code(s): K72.90 - HEPATIC FAILURE, UNSPECIFIED WITHOUT COMA; K74.60 - UNSPECIFIED CIRRHOSIS OF LIVER SNOMED Code(s): 213239675 (2) Thrombocytopenia Current Visit: Yes Status: Acute Code(s): D69.6 - THROMBOCYTOPENIA, UNSPECIFIED SNOMED Code(s): 122761916 (3) Ascites Narrative/Plan: Therapeutic paracentesis as needed. Patient underwent paracentesis yesterday w ith 9 L removed. Discussed importance of low sodium diet. Current Visit: No Status: Acute Code(s): R18.8 - OTHER ASCITES SNOMED Code(s): 485876906 (4) Hepatic encephalopathy Narrative/Plan: Discussed with patient and family member importance of taking lactulose every day and titrate to have 3-4 bowel movements daily. Patient seems more confused give fourth toes if needed. They both verbalized understanding. Xifaxan 550 mg twice a day added. Current Visit: No Status: Acute Code(s): K76.82 - HEPATIC ENCEPHALOPATHY SNOMED Code(s): 35056139 (5) Hypokalemia Narrative/Plan: Replace per protocol Current Visit: No Status: Acute Code(s): E87.6 - HYPOKALEMIA SNOMED Code(s): 40720438 Plan: 1. Continue symptomatic and supportive care 2. Lactulose 30 g 3 times a day titrate to 3-4 bowel movements daily 3. Continue Xifaxan 550 mg twice a day 5. Continue Lasix 40 mg daily and spironolactone 100 mg daily 6. Replace potassium per protocol 7. Continue alcohol abstinence 8. Low sodium diet 9. Paracentesis ordered for today prior to discharge, albumin order to give with paracentesis 10. Spoke with interventional radiology nurse Miesha VIZCAINO prior to paracentesis, 1 unit platelets to be given during paracentesis 11. Follow-up with gastroenterology in one week Thank you for this consultation, she is cleared for discharge after paracentesis. We will sign off at this time. Dr. Liv Alcantar I agree with the dictator's note, documented as a scribe by Valery Flaherty.
--- NOTE | 2023-03-06 18:36 | P.PN ---
Subjective Progress Note Date: 03/06/23 52-year-old lady with past medical history significant for decompensated liver cirrhosis, alcohol liver disease, history of alcohol use disorder, asthma, anxiety, depression, bipolar disorder, chronic anemia presents to the emergency department with complains of abdominal distention. Patient was recently admitted in the hospital from 01/31/2023 discharge on 02/10/2023 patient had high-volume paracentesis completed on 02/10 with 9.6 L of fluid removed. Patient presents with complains of shortness of breath and dizziness. Patient was sent in from her PCP office secondary to increased lower extremity swelling and shortness of breath ,She has patient has followed up with gastroenterology Dr. Alcantar. * Workup in ER included CBC which were WBC of 8.3 hemoglobin 8.2 platelet count of 34,000. Serum chemistry obtained sodium 131 potassium 4.9 carbon dioxide 20 B UN 14 creatinine 0.9 plasma lactate of 3, total bilirubin of 23 AST of 61 a LT of 38 albumin of 3.3 * Patient has decompensated liver cirrhosis, with recurrent hospitalization, since September 2022 this is her 6th hospitalization. Her prognosis remains guarded was discussed with patient as well secondary to worsening liver cirrhosis * 02/28/2023: Patient seen and evaluated and bedside, patient alert and oriented 3, patient noted to have low blood pressure, hemoglobin noted to be on at 7.3, 1 unit of packed RBC ordered, it led count 27, INR 2.4, sodium 135 potassium 3.4 bilirubin 21.1 AST 52 ALT 31 albumin 2.9. Care plan and CODE ST ATUS discussed with patient. Patient explained the morbidity of underlying condition and was explained the prognosis as well. * 03/01/2023 : Patient seen and evaluated, patient alert and oriented 4, care plan discussed discussed with the patient has ever been seen by hepatology, patient states she might have had an appointment at [facility] however does not remember. Liver profile and PT/INR continues to remain chronically elevated. Discussed with patient need for transfer to tertiary care center, at this time patient would want to do it if it's absolutely needed otherwise she would like to stay here in [place] * 03/02/2023: Patient seen and evaluated bedside, patient is alert and oriented 4, patient is a paracentesis today, potassium noted to be 3 which will be replaced, bilirubin 19, hemoglobin 7.6 platelet count of 30,000. Patient received platelet and neck Pain, INR 2.4 and follow-up. Will request gastroenterology evaluation as well * 03/03/2023 : Patient seen and evaluated bedside, patient is alert and oriented 4, mother at bedside, blood work reviewed, patient is status post paracentesis about 8.2 L of fluid removed, patient to be given albumin today, continue to follow up on CBC and platelet count potential discharge home within the next 24 hours * 03/04/2023: Patient seen and evaluated bedside patient is alert however does get confused during conversation, hemoglobin 7.1 patient to be given 1 unit of packed RBC, patient very weak will need physical therapy occupational therapy evaluation patient is in agreement and going to subacute rehab. We will give blood and follow-up on CBC tomorrow. Potential discharge to subacute rehab if patient remains hemodynamically stable. Potassium was replaced as well * 03/05/2023 : Patient seen and evaluated bedside, patient appears well, ultrasound abdomen does show ascites fluid, continue optimize medical management, gastro-nephrology following as well will coordinate with patient regarding discharge home versus rehab facility. * 03/06/2023: Patient seen and evaluated bedside, appreciate input from gastroenterology, tentative plan for paracentesis today. Plan to discharge home later today after paracentesis. Prescription for rifaximin consent, prescription for Midrin updated dose sent. Hemoglobin 8.2, serum sodium 134 bilirubin 18.9 chronically elevated. Patient doesn't want to go to subacute rehab she understands she is a high fall risk she would go home with home services, Patient was planned for DC after Paracentesis however FFP could not be arranged in time and IR will do PAracentesis on 03/09/23 now.Patient to stay through weekened. REVIEW OF SYSTEMS: Weakness, lower extremity swelling, abdominal distention IMPROVED CONSTITUTIONAL: No fever, no malaise, no fatigue. HEENT: No recent visual problems or hearing problems. Denied any sore throat. CARDIOVASCULAR: No chest pain, orthopnea, PND, no palpitations, no syncope. PULMONARY: No shortness of breath, no cough, no hemoptysis. GASTROINTESTINAL: Weakness, lower extremity swelling, abdominal distention NEUROLOGICAL: No headaches, no weakness, no numbness. HEMATOLOGICAL: Denies any bleeding or petechiae. GENITOURINARY: Denies any burning micturition, frequency, or urgency. MUSCULOSKELETAL/RHEUMATOLOGICAL: Denies any joint pain, swelling, or any muscle pain. ENDOCRINE: Denies any polyuria or polydipsia. PHYSICAL EXAMINATION: GENERAL: The patient is alert and oriented x3, deconditioned, chronically ill, y ellow discoloration, Pale HEENT: Pupils are round and equally reacting to light. EOMI. scleral icterus. CARDIOVASCULAR: S1 and S2 present. Tachycardia noted PULMONARY: Chest is clear to auscultation, no wheezing or crackles. ABDOMEN: Soft, nontender, distended, nontender on palpation MUSCULOSKELETAL: No joint swelling or deformity. EXTREMITIES: pedal edema. NEUROLOGICAL: Gross neurological examination did not reveal any focal deficits. Alert and oriented 3 Assessment: Assessment and plan * Decompensated liver cirrhosis with history of alcohol liver disease * Hyperbilirubinemia secondary to cirrhosis, recurrent ascites * Lactic acidosis likely hepatic in origin * Seizure disorder with history of breakthrough seizures * Coagulopathy with elevated INR secondary to hepatic disease * Chronic thrombocytopenia * Chronic anemia * In regards to decompensated liver cirrhosis, IR was consulted for paracentesis scheduled for 03/02>> 8200 mL fluid removed , IV vitamin K daily >> follow up on INR levels elevated, patient received platelet and FFP 03/02 , upon discharge continue vitamin K, lactulose, rifaximin, Lasix, Aldactone * In regards to seizure disorder continue patient on Keppra * In regards to chronic thrombocytopenia, maintain thrombocytopenia precautions, platelet transfusion to be given prior to paracentesis ordered for 03/02, 8200 mL of fluid removed, repeat paracentesis is ordered 03/06 * In regards to chronic anemia, 1 unit of packed RBC given 02/28, 1 unit order 03/04, follow-up myoglobin 10.5, we'll follow-up on CBC shows stable hemoglobin around 8.2 * Continue Midodrine for blood pressure support, 15 mg 3 times a day prescription provided Objective - Vital Signs Vital signs: Vital Signs Temp 97.8 F 03/06/23 15:06 Pulse 102 H 03/06/23 15:06 Resp 18 03/06/23 15:06 BP 96/56 03/06/23 15:06 Pulse Ox 97 03/06/23 15:06 FiO2 Intake & Output 03/05/23 03/06/23 03/06/23 18:59 06:59 18:59 Intake Total 530 488 Output Total 1 1 Balance 530 -1 487 Weight 67.5 kg Intake: IV 10 Invasive Line 3 10 Intake, IV Titration 50 Amount Phytonadione 10 mg In 50 Sodium Chloride 0.9% 50 ml @ 100 mls/hr IVPB DAILY [facility] Rx#:[id number] Oral 480 478 Output: Stool 1 1 Other: Voiding Method External Catheter External Catheter External Catheter # Voids 1 1 5 # Bowel Movements 1 2 - Labs CBC & Chem 7: 03/06/23 08:25 03/06/23 08:25 Labs: Abnormal Lab Results - Last 24 Hours (Table) 03/05/23 03/06/23 03/06/23 Range/Units 19:54 08:25 08:25 RBC 2.04 L (3.80-5.40) m/uL Hgb 8.2 L D (11.4-16.0) gm/dL Hct 24.1 L (34.0-46.0) % MCV 117.9 H (80.0-100.0) fL MCH 39.9 H (25.0-35.0) pg RDW 23.7 H (11.5-15.5) % Plt Count 24 L (150-450) k/uL Macrocytosis Marked A PT 25.8 H (10.0-12.5) sec INR 2.6 H (<1.2) Sodium (137-145) mmol/L POC Glucose (mg/dL) 225 H (70-110) mg/dL Total Bilirubin (0.2-1.3) mg/dL AST (14-36) U/L Total Protein (6.3-8.2) g/dL Albumin (3.5-5.0) g/dL 03/06/23 Range/Units 08:25 RBC (3.80-5.40) m/uL Hgb (11.4-16.0) gm/dL Hct (34.0-46.0) % MCV (80.0-100.0) fL MCH (25.0-35.0) pg RDW (11.5-15.5) % Plt Count (150-450) k/uL Macrocytosis PT (10.0-12.5) sec INR (<1.2) Sodium 134 L (137-145) mmol/L POC Glucose (mg/dL) (70-110) mg/dL Total Bilirubin 18.9 H* (0.2-1.3) mg/dL AST 52 H (14-36) U/L Total Protein 6.1 L (6.3-8.2) g/dL Albumin 2.8 L (3.5-5.0) g/dL
[2023-03-07] MEDS: MIDODRINE 5 MG TAB PO SCH ×3 (06:24→16:35)
[2023-03-07 08:21] LABS: Anisocytosis Moderate; HCT 23.5 % (34.0-46.0); HGB 8.1 gm/dL (11.4-16.0); Hypochromasia Moderate; MCH 40.8 pg (25.0-35.0); MCHC 34.6 g/dL (31.0-37.0); Macrocytosis Marked; Mean Platelet Volume 9.8; Poikilocytosis Slight; RBC 1.99 m/uL (3.80-5.40); RDW 22.7 % (11.5-15.5); WBC 7.3 k/uL (3.8-10.6)
[2023-03-07 08:31] LABS: Platelet Count 33 k/uL (150-450)
[2023-03-07 08:38] LABS: ALT 33 U/L (4-34); AST 45 U/L (14-36); African American GFR (CKD) 54 (>60 ml/min/1.73 sqM); Albumin 2.8 g/dL (3.5-5.0); Alkaline Phosphatase 94 U/L (38-126); Anion Gap 11 mmol/L; Blood Urea Nitrogen 29 mg/dL (7-17); Calcium 8.8 mg/dL (8.4-10.2); Carbon Dioxide 23 mmol/L (22-30); Chloride 98 mmol/L (98-107); Glucose 102 mg/dL (74-99); Non-African American GFR(CKD) 47 (>60 ml/min/1.73 sqM); Potassium 4.4 mmol/L (3.5-5.1); Sodium 132 mmol/L (137-145); Total Protein 6.4 g/dL (6.3-8.2)
[2023-03-07 08:54] LABS: Total Bilirubin 22.3 mg/dL (0.2-1.3)
[2023-03-07 08:56] LABS: INR 2.5 (<1.2); Prothrombin Time 25.1 sec (10.0-12.5)
[2023-03-07] MEDS: FLUoxetine HCL 20 MG CAP PO SCH (09:01)
[2023-03-07] MEDS: FUROSEMIDE 40 MG TAB PO SCH (09:01)
[2023-03-07] MEDS: SPIRONOLACTONE 25 MG TAB PO SCH (09:01)
[2023-03-07] MEDS: levETIRAcetam 500 MG TAB PO SCH ×2 (09:01→20:30)
[2023-03-07] MEDS: THIAMINE 100 MG TAB PO SCH (09:01)
[2023-03-07] MEDS: RIFAXIMIN 550 MG TABLET PO SCH ×2 (09:01→20:30)
[2023-03-07] MEDS: PANTOPRAZOLE 40 MG TABLET PO SCH (09:01)
[2023-03-07] MEDS: LACTULOSE 20 GM/30 ML CUP PO SCH ×3 (09:01→20:30)
[2023-03-07 09:05] LABS: C Reactive Protein 0.5 mg/dL (<1.0)
[2023-03-07] MEDS: PHYTONADIONE 10 MG in SODIUM CHLORIDE 0.9% 50 ML IVPB SCH (10:42)
--- NOTE | 2023-03-08 00:12 | P.PN ---
Subjective 52-year-old lady with past medical history significant for decompensated liver cirrhosis, alcohol liver disease, history of alcohol use disorder, asthma, anxiety, depression, bipolar disorder, chronic anemia presents to the emergency department with complains of abdominal distention. Patient was recently admitted in the hospital from 01/31/2023 discharge on 02/10/2023 patient had high-volume paracentesis completed on 02/10 with 9.6 L of fluid removed. Patient presents with complains of shortness of breath and dizziness. Patient was sent in from her PCP office secondary to increased lower extremity swelling and shortness of breath ,She has patient has followed up with gastroenterology Dr. Alcantar. * Workup in ER included CBC which were WBC of 8.3 hemoglobin 8.2 platelet count of 34,000. Serum chemistry obtained sodium 131 potassium 4.9 carbon dioxide 20 B UN 14 creatinine 0.9 plasma lactate of 3, total bilirubin of 23 AST of 61 a LT of 38 albumin of 3.3 * Patient has decompensated liver cirrhosis, with recurrent hospitalization, [facility] September 2022 this is her 6th hospitalization. Her prognosis remains guarded was discussed with patient as well secondary to worsening liver cirrhosis * 02/28/2023: Patient seen and evaluated and bedside, patient alert and oriented 3, patient noted to have low blood pressure, hemoglobin noted to be on at 7.3, 1 unit of packed RBC ordered, it led count 27, INR 2.4, sodium 135 potassium 3.4 bilirubin 21.1 AST 52 ALT 31 albumin 2.9. Care plan and CODE STATUS discussed with patient. Patient explained the morbidity of underlying condition and was explained the prognosis as well. * 03/01/2023 : Patient seen and evaluated, patient alert and oriented 4, care plan discussed discussed with the patient has ever been seen by hepatology, patient states she might have had an appointment at [facility] however does not remember. Liver profile and PT/INR continues to remain chronically elevated. Discussed with patient need for transfer to tertiary care center, at this time patient would want to do it if it's absolutely needed otherwise she would like to stay here in [place] * 03/02/2023: Patient seen and evaluated bedside, patient is alert and oriented 4, patient is a paracentesis today, potassium noted to be 3 which will be replaced, bilirubin 19, hemoglobin 7.6 platelet count of 30,000. Patient received platelet and neck Pain, INR 2.4 and follow-up. Will request gastroenterology evaluation as well * 03/03/2023 : Patient seen and evaluated bedside, patient is alert and oriented 4, mother at bedside, blood work reviewed, patient is status post paracentesis about 8.2 L of fluid removed, patient to be given albumin today, continue to follow up on CBC and platelet count potential discharge home within the next 24 hours * 03/04/2023: Patient seen and evaluated bedside patient is alert however does get confused during conversation, hemoglobin 7.1 patient to be given 1 unit of packed RBC, patient very weak will need physical therapy occupational therapy evaluation patient is in agreement and going to subacute rehab. We will give blood and follow-up on CBC tomorrow. Potential discharge to subacute rehab if patient remains hemodynamically stable. Potassium was replaced as well * 03/05/2023 : Patient seen and evaluated bedside, patient appears well, ultrasound abdomen does show ascites fluid, continue optimize medical management, gastro-nephrology following as well will coordinate with patient regarding discharge home versus rehab facility. * 03/06/2023: Patient seen and evaluated bedside, appreciate input from gastroenterology, tentative plan for paracentesis today. Plan to discharge home later today after paracentesis. Prescription for rifaximin consent, prescription for Midrin updated dose sent. Hemoglobin 8.2, serum sodium 134 bilirubin 18.9 chronically elevated. Patient doesn't want to go to subacute rehab she understands she is a high fall risk she would go home with home services, Patient was planned for DC after Paracentesis however FFP could not be arranged in time and IR will do PAracentesis on 03/09/23 now.Patient to stay through weekened. 03/07/2023 Patient fully awake pleasant She has abdominal distention but no tenderness. No other new complaints Labs look similar to yesterday however her creatinine went up 0.9 1.3 We will monitor creatinine tomorrow and based on that plan for treatment. Patient is intended to have another paracentesis this coming Thursday albumin infusion Objective - Vital Signs Vital signs: Vital Signs Temp 98.1 F 03/07/23 11:12 Pulse 90 03/07/23 11:12 Resp 18 03/07/23 11:12 BP 93/56 03/07/23 11:12 Pulse Ox 100 03/07/23 11:12 FiO2 Intake & Output 03/06/23 03/07/23 03/07/23 18:59 06:59 18:59 Intake Total 488 660 60 Output Total 1 1 Balance 487 659 60 Intake: IV 10 10 10 Invasive Line 3 10 10 10 Intake, IV Titration 50 Amount Phytonadione 10 mg In 50 Sodium Chloride 0.9% 50 ml @ 100 mls/hr IVPB DAILY [facility] Rx#:[id number] Oral 478 650 Output: Stool 1 1 Other: Voiding Method External Catheter External Catheter External Catheter # Voids 5 # Bowel Movements 2 1 - Exam GENERAL: The patient is alert and oriented x3, not in any acute distress. Well developed, well nourished. HEENT: Pupils are round and equally reacting to light. EOMI. No scleral icterus. No conjunctival pallor. Normocephalic, atraumatic. No pharyngeal erythema. No thyromegaly. CARDIOVASCULAR: S1 and S2 present. No murmurs, rubs, or gallops. PULMONARY: Chest is clear to auscultation, no wheezing , no crackles. -ABDOMEN: Soft, nontender, distended, normoactive bowel sounds. No palpable organomegaly. MUSCULOSKELETAL: No joint swelling or deformity. EXTREMITIES: No cyanosis, clubbing, or pedal edema. NEUROLOGICAL: Gross neurological examination did not reveal any focal deficits. SKIN: No rashes. no petechiae. - Labs CBC & Chem 7: 03/07/23 07:51 03/07/23 07:51 Labs: Abnormal Lab Results - Last 24 Hours (Table) 03/07/23 03/07/23 03/07/23 Range/Units 07:51 07:51 07:51 RBC 1.99 L (3.80-5.40) m/uL Hgb 8.1 L (11.4-16.0) gm/dL Hct 23.5 L (34.0-46.0) % MCV 118.0 H (80.0-100.0) fL MCH 40.8 H (25.0-35.0) pg RDW 22.7 H (11.5-15.5) % Plt Count 33 L (150-450) k/uL Macrocytosis Marked A PT 25.1 H (10.0-12.5) sec INR 2.5 H (<1.2) Sodium 132 L (137-145) mmol/L BUN 29 H (7-17) mg/dL Creatinine 1.31 H (0.52-1.04) mg/dL Glucose 102 H (74-99) mg/dL Total Bilirubin 22.3 H* (0.2-1.3) mg/dL AST 45 H (14-36) U/L Albumin 2.8 L (3.5-5.0) g/dL Assessment and Plan Assessment: * Decompensated liver cirrhosis with history of alcohol liver disease * Acute kidney injury, mild * Hyperbilirubinemia secondary to cirrhosis, recurrent ascites * Lactic acidosis likely hepatic in origin * Seizure disorder with history of breakthrough seizures * Coagulopathy with elevated INR secondary to hepatic disease * Chronic thrombocytopenia * Chronic anemia Plan: Monitor creatinine Monitor other labs including hemoglobin and liver function tests and INR Planned for paracentesis with L Aida effusion on Thursday No GI service available this weekend Labs and medication were reviewed.. Continue same treatment. Continue with symptomatic treatment. Resume home medication. Monitor labs and vitals. DVT and GI prophylaxis. Further recommendations as per clinical course of the patient DVT prophylaxis: no Subcutaneous heparin, high INR and thrombocytopenia GI Prophylaxis: Ppi Prognosis is guarded
[2023-03-08] MEDS: MIDODRINE 5 MG TAB PO SCH ×3 (06:24→16:59)
[2023-03-08] MEDS: LACTULOSE 20 GM/30 ML CUP PO SCH ×3 (08:49→20:05)
[2023-03-08] MEDS: SPIRONOLACTONE 25 MG TAB PO SCH (08:49)
[2023-03-08] MEDS: FLUoxetine HCL 20 MG CAP PO SCH (08:49)
[2023-03-08] MEDS: FUROSEMIDE 40 MG TAB PO SCH (08:49)
[2023-03-08] MEDS: levETIRAcetam 500 MG TAB PO SCH ×2 (08:49→20:05)
[2023-03-08] MEDS: PANTOPRAZOLE 40 MG TABLET PO SCH (08:49)
[2023-03-08] MEDS: THIAMINE 100 MG TAB PO SCH (08:49)
[2023-03-08 09:19] LABS: African American GFR (CKD) 51 (>60 ml/min/1.73 sqM); Anion Gap 10 mmol/L; Blood Urea Nitrogen 43 mg/dL (7-17); Carbon Dioxide 24 mmol/L (22-30); Chloride 99 mmol/L (98-107); Glucose 96 mg/dL (74-99); Non-African American GFR(CKD) 45 (>60 ml/min/1.73 sqM); Potassium 4.6 mmol/L (3.5-5.1); Sodium 133 mmol/L (137-145)
[2023-03-08] MEDS: RIFAXIMIN 550 MG TABLET PO SCH ×2 (09:36→20:05)
[2023-03-08] MEDS: PHYTONADIONE 10 MG in SODIUM CHLORIDE 0.9% 50 ML IVPB SCH (09:38)
[2023-03-08 11:56] LABS: INR 2.4 (<1.2); Prothrombin Time 23.4 sec (10.0-12.5)
--- NOTE | 2023-03-08 22:53 | P.PN ---
Subjective 52-year-old lady with past medical history significant for decompensated liver cirrhosis, alcohol liver disease, history of alcohol use disorder, asthma, anxiety, depression, bipolar disorder, chronic anemia presents to the emergency department with complains of abdominal distention. Patient was recently admitted in the hospital from 01/31/2023 discharge on 02/10/2023 patient had high-volume paracentesis completed on 02/10 with 9.6 L of fluid removed. Patient presents with complains of shortness of breath and dizziness. Patient was sent in from her PCP office secondary to increased lower extremity swelling and shortness of breath ,She has patient has followed up with gastroenterology Dr. Alcantar. * Workup in ER included CBC which were WBC of 8.3 hemoglobin 8.2 platelet count of 34,000. Serum chemistry obtained sodium 131 potassium 4.9 carbon dioxide 20 B UN 14 creatinine 0.9 plasma lactate of 3, total bilirubin of 23 AST of 61 a LT of 38 albumin of 3.3 * Patient has decompensated liver cirrhosis, with recurrent hospitalization, brittany pearson September 2022 this is her 6th hospitalization. Her prognosis remains guarded was discussed with patient as well secondary to worsening liver cirrhosis * 02/28/2023: Patient seen and evaluated and bedside, patient alert and oriented 3, patient noted to have low blood pressure, hemoglobin noted to be on at 7.3, 1 unit of packed RBC ordered, it led count 27, INR 2.4, sodium 135 potassium 3.4 bilirubin 21.1 AST 52 ALT 31 albumin 2.9. Care plan and CODE STATUS discussed with patient. Patient explained the morbidity of underlying condition and was explained the prognosis as well. * 03/01/2023 : Patient seen and evaluated, patient alert and oriented 4, care plan discussed discussed with the patient has ever been seen by hepatology, patient states she might have had an appointment at [place] however does not remember. Liver profile and PT/INR continues to remain chronically elevated. Discussed with patient need for transfer to tertiary care center, at this time patient would want to do it if it's absolutely needed otherwise she would like to stay here in [place] * 03/02/2023: Patient seen and evaluated bedside, patient is alert and oriented 4, patient is a paracentesis today, potassium noted to be 3 which will be replaced, bilirubin 19, hemoglobin 7.6 platelet count of 30,000. Patient received platelet and neck Pain, INR 2.4 and follow-up. Will request gastroenterology evaluation as well * 03/03/2023 : Patient seen and evaluated bedside, patient is alert and oriented 4, mother at bedside, blood work reviewed, patient is status post paracentesis about 8.2 L of fluid removed, patient to be given albumin today, continue to follow up on CBC and platelet count potential discharge home within the next 24 hours * 03/04/2023: Patient seen and evaluated bedside patient is alert however does get confused during conversation, hemoglobin 7.1 patient to be given 1 unit of packed RBC, patient very weak will need physical therapy occupational therapy evaluation patient is in agreement and going to subacute rehab. We will give blood and follow-up on CBC tomorrow. Potential discharge to subacute rehab if patient remains hemodynamically stable. Potassium was replaced as well * 03/05/2023 : Patient seen and evaluated bedside, patient appears well, ultrasound abdomen does show ascites fluid, continue optimize medical management, gastro-nephrology following as well will coordinate with patient regarding discharge home versus rehab facility. * 03/06/2023: Patient seen and evaluated bedside, appreciate input from gastroenterology, tentative plan for paracentesis today. Plan to discharge home later today after paracentesis. Prescription for rifaximin consent, prescription for Midrin updated dose sent. Hemoglobin 8.2, serum sodium 134 bilirubin 18.9 chronically elevated. Patient doesn't want to go to subacute rehab she understands she is a high fall risk she would go home with home services, Patient was planned for DC after Paracentesis however FFP could not be arranged in time and IR will do PAracentesis on 03/09/23 now.Patient to stay through weekened. 03/07/2023 Patient fully awake pleasant She has abdominal distention but no tenderness. No other new complaints Labs look similar to yesterday however her creatinine went up 0.9 1.3 We will monitor creatinine tomorrow and based on that plan for treatment. Patient is intended to have another paracentesis this coming Thursday albumin infusion 03/08/2023 Patient sitting in bed with no abdominal pain and no other new complaints She has abdominal distention and plan to get paracentesis abdomen effusion as well as fresh frozen plasma as her INR is elevated at 2.5. Also her creatinine is starts going up yesterday 1.3, today stable at 1.37. We will repeat labs tomorrow. Patient herself asked when she can go home. However she agrees to the planned so far. Objective - Vital Signs Vital signs: Vital Signs Temp 97.8 F 03/08/23 16:10 Pulse 92 03/08/23 16:10 Resp 18 03/08/23 16:10 BP 95/56 03/08/23 16:10 Pulse Ox 98 03/08/23 16:10 FiO2 Intake & Output 03/08/23 03/08/23 03/09/23 06:59 18:59 06:59 Intake Total 10 780 Balance 10 780 Intake: IV 10 10 Invasive Line 3 10 10 Intake, IV Titration 50 Amount Phytonadione 10 mg In 50 Sodium Chloride 0.9% 50 ml @ 100 mls/hr IVPB DAILY [facility] Rx#:[id number] Oral 720 Other: Voiding Method Diaper Diaper External Catheter External Catheter # Voids 1 1 # Bowel Movements 1 - Exam GENERAL: The patient is alert and oriented x3, not in any acute distress. Well developed, well nourished. HEENT: Pupils are round and equally reacting to light. EOMI. No scleral icterus. No conjunctival pallor. Normocephalic, atraumatic. No pharyngeal erythema. No thyromegaly. CARDIOVASCULAR: S1 and S2 present. No murmurs, rubs, or gallops. PULMONARY: Chest is clear to auscultation, no wheezing , no crackles. -ABDOMEN: Soft, nontender, distended, normoactive bowel sounds. No palpable organomegaly. MUSCULOSKELETAL: No joint swelling or deformity. EXTREMITIES: No cyanosis, clubbing, or pedal edema. NEUROLOGICAL: Gross neurological examination did not reveal any focal deficits. SKIN: No rashes. no petechiae. - Labs CBC & Chem 7: 03/07/23 07:51 03/08/23 08:25 Labs: Abnormal Lab Results - Last 24 Hours (Table) 03/08/23 03/08/23 Range/Units 08:25 10:51 PT 23.4 H (10.0-12.5) sec INR 2.4 H (<1.2) Sodium 133 L (137-145) mmol/L BUN 43 H (7-17) mg/dL Creatinine 1.37 H (0.52-1.04) mg/dL Assessment and Plan Assessment: * Decompensated liver cirrhosis with history of alcohol liver disease * Acute kidney injury, mild * Hyperbilirubinemia secondary to cirrhosis, recurrent ascites * Lactic acidosis likely hepatic in origin * Seizure disorder with history of breakthrough seizures * Coagulopathy with elevated INR secondary to hepatic disease * Chronic thrombocytopenia * Chronic anemia Plan: Monitor creatinine Monitor other labs including hemoglobin and liver function tests and INR Planned for paracentesis with L Aida effusion on Thursday No GI service available this weekend Labs and medication were reviewed.. Continue same treatment. Continue with symptomatic treatment. Resume home medication. Monitor labs and vitals. DVT and GI prophylaxis. Further recommendations as per clinical course of the patient DVT prophylaxis: no Subcutaneous heparin, high INR and thrombocytopenia GI Prophylaxis: Ppi Prognosis is guarded
[2023-03-09 03:00] LABS: Appearance,Urine Clear (Clear); Bilirubin,Urine 2+ (Negative); Color,Urine Amber; Glucose,Urine (UA) Negative (Negative); Ketones,Urine Negative (Negative); Protein,Urine Negative (Negative)
[2023-03-09 03:01] LABS: Blood,Urine Negative (Negative); Leukocyte Esterase,Urine Negative (Negative); Nitrite,Urine Negative (Negative); Urobilinogen,Urine <2.0 mg/dL (<2.0)
[2023-03-09 03:03] LABS: Bacteria,Urine Rare /hpf; Hyaline Casts,Urine 1 /lpf (0-2); Mucus,Urine Rare /hpf; Squamous Epithelial Cell,Urine 4 /hpf (0-4); WBC,Urine 2 /hpf (0-5)
[2023-03-09] MEDS: MIDODRINE 5 MG TAB PO SCH ×3 (06:02→17:20)
[2023-03-09 07:41] LABS: Potassium 4.4 mmol/L (3.5-5.1)
[2023-03-09 07:42] LABS: African American GFR (CKD) 50 (>60 ml/min/1.73 sqM); Anion Gap 10 mmol/L; Blood Urea Nitrogen 47 mg/dL (7-17); Calcium 9.1 mg/dL (8.4-10.2); Carbon Dioxide 24 mmol/L (22-30); Chloride 98 mmol/L (98-107); Glucose 83 mg/dL (74-99); Non-African American GFR(CKD) 43 (>60 ml/min/1.73 sqM); Sodium 132 mmol/L (137-145)
[2023-03-09] MEDS: SPIRONOLACTONE 25 MG TAB PO SCH (08:34)
[2023-03-09] MEDS: PANTOPRAZOLE 40 MG TABLET PO SCH (08:34)
[2023-03-09] MEDS: FUROSEMIDE 40 MG TAB PO SCH (08:34)
[2023-03-09] MEDS: FLUoxetine HCL 20 MG CAP PO SCH (08:34)
[2023-03-09] MEDS: levETIRAcetam 500 MG TAB PO SCH ×2 (08:34→20:33)
[2023-03-09] MEDS: THIAMINE 100 MG TAB PO SCH (08:34)
[2023-03-09] MEDS: LACTULOSE 20 GM/30 ML CUP PO SCH ×3 (08:34→20:34)
[2023-03-09] MEDS: RIFAXIMIN 550 MG TABLET PO SCH ×2 (08:34→20:33)
[2023-03-09 08:41] LABS: Anisocytosis Moderate; Basophils % (A) 1 %; Eosinophils # (A) 0.3 k/uL (0-0.7); Eosinophils % (A) 4 %; HGB 7.5 gm/dL (11.4-16.0); Hypochromasia Slight; Lymphocytes # (A) 0.8 k/uL (1.0-4.8); Lymphocytes % (A) 11 %; MCH 40.2 pg (25.0-35.0); MCV 118.1 fL (80.0-100.0); Macrocytosis Marked; Mean Platelet Volume 10.2; Monocytes # (A) 0.5 k/uL (0-1.0); Monocytes % (A) 7 %; Neutrophils # (A) 5.1 k/uL (1.3-7.7); Neutrophils % (A) 73 %; Poikilocytosis Slight; RBC 1.87 m/uL (3.80-5.40); RDW 22.2 % (11.5-15.5)
[2023-03-09 08:42] LABS: Platelet Count 24 k/uL (150-450)
[2023-03-09] MEDS: PHYTONADIONE 10 MG in SODIUM CHLORIDE 0.9% 50 ML IVPB SCH (10:09)
--- NOTE | 2023-03-09 10:18 | P.NPCON ---
History of Present Illness - Reason for Consult acute renal failure - History of Present Illness Reason for consultation: Acute kidney injury History of present illness: Patient is a 52-year-old female seen in renal consultation for acute kidney injury. Patient's creatinine has been in the range of 0.8-0.9 and since March 07 has been elevated. It is 1.4 today. Patient came to the hospital on 02/27/2023 due to dizziness and shortness of breath. Patient has a history of all call-induced liver failure. Patient states used to drink alcohol several years ago but has not recently. Last paracentesis was done 03/02/2023 with 9.5 L drained. She does have edema in the lower extremities. Denies chest pain or shortness of breath. No vomiting or diarrhea. Has been voiding. Denies gross hematuria. No history of diabetes. No history of coronary artery disease. Denies family history of renal disease. She is currently on spironolactone 100 mg daily and Lasix 40 mg once daily in terms of diuretics. She is scheduled to undergo another paracentesis today. Vital signs are stable. General: No acute distress. HEENT: Head exam is unremarkable. LUNGS: No audible rhonchi or wheezes. HEART: Rate and Rhythm are regular. ABDOMEN: Distention noted. EXTREMITITES: 2+ edema. Past Medical History Past Medical History: Asthma, Liver Disease Additional Past Medical History / Comment(s): ascites,paracentesis 12/28/22, low platelets, previous ETOH abuse History of Any Multi-Drug Resistant Organisms: None Reported Past Surgical History: No Surgical Hx Reported Additional Past Surgical History / Comment(s): repair to spleen [place] Ruptured spleen in 1988 Past Anesthesia/Blood Transfusion Reactions: No Reported Reaction Additional Past Anesthesia/Blood Transfusion Reaction / Comment(s): Unsure if had blood transfusion in past Past Psychological History: Anxiety, Bipolar, Depression Additional Psychological History / Comment(s): ETOH use Smoking Status: Current every day smoker Past Alcohol Use History: None Reported Additional Past Alcohol Use History / Comment(s): Stated that pt quit drinking in August 2022 Past Drug Use History: None Reported Additional Drug Use History / Comment(s): Marijuana use; Smokes a pack a day of cigarettes - Past Family History Sister(s) Additional Family Medical History / Comment(s): closed head injury Mother Family Medical History: Diabetes Mellitus, Hyperlipidemia Medications and Allergies Home Medications Medication Instructions Recorded Confirmed Type FLUoxetine HCL [PROzac] 40 mg PO DAILY 10/01/22 02/27/23 History Potassium Chloride ER [K-Dur 10] 10 meq PO DAILY 10/01/22 02/27/23 History Thiamine [Vitamin B-1] 100 mg PO DAILY 10/01/22 02/27/23 History Lactulose [Cephulac] 30 gm PO TID #120 ml 10/04/22 02/27/23 Rx Ubidecarenone [Coenzyme Q10] 100 mg PO DAILY 12/02/22 02/27/23 History Phytonadione Oral [Vitamin K Oral] 5 mg PO DAILY #15 ml 12/04/22 02/27/23 Rx levETIRAcetam [Keppra] 500 mg PO Q12HR #60 tab 01/05/23 02/27/23 Rx Furosemide [Lasix] 20 mg PO DAILY #30 tab 01/15/23 02/27/23 Rx Spironolactone [Aldactone] 100 mg PO DAILY #30 tab 01/15/23 02/27/23 Rx Pantoprazole Sodium [Protonix] 40 mg PO DAILY 02/27/23 02/27/23 History Midodrine [ProAmatine] 15 mg PO AC-TID 30 Days #270 tab 03/06/23 Rx Rifaximin [Xifaxan] 550 mg PO BID 30 Days #60 tab 03/06/23 Rx Allergies Allergy/AdvReac Type Severity Reaction Status Date / Time Penicillins Allergy Swelling Verified 02/27/23 12:16 tongue Sulfa (Sulfonamide Allergy Swelling Verified 02/27/23 12:16 Antibiotics) tongue walnut Allergy Anaphylaxis Verified 02/27/23 12:16 Physical Exam Vitals: Vital Signs Temp Pulse Resp BP Pulse Ox 03/09/23 08:32 98.0 F 104 H 16 99/55 100 03/09/23 04:00 97.8 F 81 19 91/47 95 03/09/23 00:00 97.9 F 51 L 19 92/55 98 03/08/23 20:00 98.1 F 92 19 107/61 100 03/08/23 16:10 97.8 F 92 18 95/56 98 03/08/23 11:01 97.5 F L 102 H 20 104/66 97 Intake and Output 12/10/23 12/11/23 12/11/23 22:59 06:59 14:59 Intake Total 50 Output Total 400 1 Balance 50 -400 -1 Intake: Intake, IV Titration 50 Amount Phytonadione 10 mg In 50 Sodium Chloride 0.9% 50 ml @ 100 mls/hr IVPB DAILY [facility] Rx#:[id number] Output: Urine 400 Stool 1 Other: Voiding Method Diaper Diaper Diaper External Catheter External Catheter External Catheter # Voids 1 # Bowel Movements 1 Weight 69.6 kg Results - Lab Results Most recent lab results Calcium 9.1 mg/dL (8.4-10.2) 03/09/23 06:25 03/09/23 06:25 03/09/23 06:25 Assessment and Plan Plan: Assessment: 1. Acute kidney injury secondary to ATN secondary to hepatorenal syndrome. Baseline creatinine 0.8-0.9 and elevated at 1.4 today. UA benign. 2. Alcohol-induced liver cirrhosis. 3. Volume overload with ascites. Last paracentesis done 03/02/2022 to 9.5 L drained. Scheduled for another paracentesis today. 4. Hypervolemic hyponatremia. 5. Anemia. Rule out iron deficiency. Plan: Maintain Aldactone. Change Lasix to 40 mg IV twice daily. Low-salt diet and 1200 mL fluid restriction. 25 g IV albumin pre-and post paracentesis. Check renal ultrasound. Continue to monitor renal function and urine output. Thank you for the consultation. I will continue to follow the patient with you during her hospital stay.
[2023-03-09] MEDS: ALBUMIN HUMAN 25% 50 ML in EMPTY BAG 1 BAG IVPB SCH ×6 (12:08→15:10)
[2023-03-09] MEDS: FUROSEMIDE 10 MG/ML 4 ML VIAL IV SCH ×4 (12:08→20:33)
[2023-03-09 13:08] VITALS: BMI 25.5
--- NOTE | 2023-03-09 20:40 | P.PN ---
Subjective 52-year-old lady with past medical history significant for decompensated liver cirrhosis, alcohol liver disease, history of alcohol use disorder, asthma, anxiety, depression, bipolar disorder, chronic anemia presents to the emergency department with complains of abdominal distention. Patient was recently admitted in the hospital from 01/31/2023 discharge on 02/10/2023 patient had high-volume paracentesis completed on 02/10 with 9.6 L of fluid removed. Patient presents with complains of shortness of breath and dizziness. Patient was sent in from her PCP office secondary to increased lower extremity swelling and shortness of breath ,She has patient has followed up with gastroenterology Dr. Alcantar. * Workup in ER included CBC which were WBC of 8.3 hemoglobin 8.2 platelet count of 34,000. Serum chemistry obtained sodium 131 potassium 4.9 carbon dioxide 20 B UN 14 creatinine 0.9 plasma lactate of 3, total bilirubin of 23 AST of 61 a LT of 38 albumin of 3.3 * Patient has decompensated liver cirrhosis, with recurrent hospitalization, brittany pearson September 2022 this is her 6th hospitalization. Her prognosis remains guarded was discussed with patient as well secondary to worsening liver cirrhosis * 02/28/2023: Patient seen and evaluated and bedside, patient alert and oriented 3, patient noted to have low blood pressure, hemoglobin noted to be on at 7.3, 1 unit of packed RBC ordered, it led count 27, INR 2.4, sodium 135 potassium 3.4 bilirubin 21.1 AST 52 ALT 31 albumin 2.9. Care plan and CODE STATUS discussed with patient. Patient explained the morbidity of underlying condition and was explained the prognosis as well. * 03/01/2023 : Patient seen and evaluated, patient alert and oriented 4, care plan discussed discussed with the patient has ever been seen by hepatology, patient states she might have had an appointment at [place] however does not remember. Liver profile and PT/INR continues to remain chronically elevated. Discussed with patient need for transfer to tertiary care center, at this time patient would want to do it if it's absolutely needed otherwise she would like to stay here in [place] * 03/02/2023: Patient seen and evaluated bedside, patient is alert and oriented 4, patient is a paracentesis today, potassium noted to be 3 which will be replaced, bilirubin 19, hemoglobin 7.6 platelet count of 30,000. Patient received platelet and neck Pain, INR 2.4 and follow-up. Will request gastroenterology evaluation as well * 03/03/2023 : Patient seen and evaluated bedside, patient is alert and oriented 4, mother at bedside, blood work reviewed, patient is status post paracentesis about 8.2 L of fluid removed, patient to be given albumin today, continue to follow up on CBC and platelet count potential discharge home within the next 24 hours * 03/04/2023: Patient seen and evaluated bedside patient is alert however does get confused during conversation, hemoglobin 7.1 patient to be given 1 unit of packed RBC, patient very weak will need physical therapy occupational therapy evaluation patient is in agreement and going to subacute rehab. We will give blood and follow-up on CBC tomorrow. Potential discharge to subacute rehab if patient remains hemodynamically stable. Potassium was replaced as well * 03/05/2023 : Patient seen and evaluated bedside, patient appears well, ultrasound abdomen does show ascites fluid, continue optimize medical management, gastro-nephrology following as well will coordinate with patient regarding discharge home versus rehab facility. * 03/06/2023: Patient seen and evaluated bedside, appreciate input from gastroenterology, tentative plan for paracentesis today. Plan to discharge home later today after paracentesis. Prescription for rifaximin consent, prescription for Midrin updated dose sent. Hemoglobin 8.2, serum sodium 134 bilirubin 18.9 chronically elevated. Patient doesn't want to go to subacute rehab she understands she is a high fall risk she would go home with home services, Patient was planned for DC after Paracentesis however [facility] could not be arranged in time and IR will do PAracentesis on 03/09/23 now.Patient to stay through weekened. 03/07/2023 Patient fully awake pleasant She has abdominal distention but no tenderness. No other new complaints Labs look similar to yesterday however her creatinine went up 0.9 1.3 We will monitor creatinine tomorrow and based on that plan for treatment. Patient is intended to have another paracentesis this coming Thursday albumin infusion 03/08/2023 Patient sitting in bed with no abdominal pain and no other new complaints She has abdominal distention and plan to get paracentesis abdomen effusion as well as fresh frozen plasma as her INR is elevated at 2.5. Also her creatinine is starts going up yesterday 1.3, today stable at 1.37. We will repeat labs tomorrow. Patient herself asked when she can go home. However she agrees to the planned so far. 03/09/2023 Patient underwent paracentesis and tolerated procedure well and she received of albumin 25 g before and after the procedure. Patient also with evidence of acute kidney injury with benign urine analysis, creatinine 1.4 area nephrology input is appreciated and patient was started on IV fluid restriction. Hemoglobin 7.5, platelet count 24. Itself looks comfortable has no specific complaints other than significant abdominal distention but also she has 3+ bilateral pitting like edema Objective - Vital Signs Vital signs: Vital Signs Temp 98.1 F 03/09/23 14:29 Pulse 98 03/09/23 15:19 Resp 16 03/09/23 15:19 BP 97/52 03/09/23 15:19 Pulse Ox 100 03/09/23 15:19 FiO2 Intake & Output 03/08/23 03/09/23 03/09/23 18:59 06:59 18:59 Intake Total 780 684 Output Total 400 1 Balance 780 -400 683 Weight 69.6 kg 69.6 kg Intake: IV 10 Invasive Line 3 10 Intake, IV Titration 50 Amount Phytonadione 10 mg In 50 Sodium Chloride 0.9% 50 ml @ 100 mls/hr IVPB DAILY [facility] Rx#:[id number] Oral 720 Blood Product 684 Ffp 24 Cpd Unit 335 [id number] Platelet Pheresis Pas 349 Psoralen Unit [id number] Output: Urine 400 Stool 1 Other: Voiding Method Diaper Diaper Diaper External Catheter External Catheter External Catheter # Voids 1 1 # Bowel Movements 1 - Exam GENERAL: The patient is alert and oriented x3, not in any acute distress. Well developed, well nourished. HEENT: Pupils are round and equally reacting to light. EOMI. No scleral icterus. No conjunctival pallor. Normocephalic, atraumatic. No pharyngeal erythema. No thyromegaly. CARDIOVASCULAR: S1 and S2 present. No murmurs, rubs, or gallops. PULMONARY: Chest is clear to auscultation, no wheezing , no crackles. -ABDOMEN: Soft, nontender, distended, normoactive bowel sounds. No palpable organomegaly. MUSCULOSKELETAL: No joint swelling or deformity. EXTREMITIES: No cyanosis, clubbing, or pedal edema. NEUROLOGICAL: Gross neurological examination did not reveal any focal deficits. SKIN: No rashes. no petechiae. - Labs CBC & Chem 7: 03/09/23 06:25 03/09/23 06:25 Labs: Abnormal Lab Results - Last 24 Hours (Table) 03/09/23 03/09/23 03/09/23 Range/Units 02:08 06:25 06:25 RBC 1.87 L (3.80-5.40) m/uL Hgb 7.5 L (11.4-16.0) gm/dL Hct 22.0 L (34.0-46.0) % MCV 118.1 H (80.0-100.0) fL MCH 40.2 H (25.0-35.0) pg RDW 22.2 H (11.5-15.5) % Plt Count 24 L (150-450) k/uL Lymphocytes # 0.8 L (1.0-4.8) k/uL Macrocytosis Marked A Sodium 132 L (137-145) mmol/L BUN 47 H (7-17) mg/dL Creatinine 1.40 H (0.52-1.04) mg/dL Urine Bilirubin 2+ H (Negative) Urine Bacteria Rare H (None) /hpf Urine Mucus Rare H (None) /hpf Assessment and Plan Assessment: * Decompensated liver cirrhosis with history of alcohol liver disease * Acute kidney injury , secondary to hepatorenal syndrome * Hyperbilirubinemia secondary to cirrhosis, recurrent ascites * Lactic acidosis likely hepatic in origin * Seizure disorder with history of breakthrough seizures * Coagulopathy with elevated INR secondary to hepatic disease * Chronic thrombocytopenia * Chronic anemia Plan: Continue with IV Lasix and fluid restriction Patient status post paracentesis Monitor other labs including hemoglobin and liver function tests and INR No GI service available this weekend Labs and medication were reviewed.. Continue same treatment. Continue with symptomatic treatment. Resume home medication. Monitor labs and vitals. DVT and GI prophylaxis. Further recommendations as per clinical course of the patient DVT prophylaxis: no Subcutaneous heparin, high INR and thrombocytopenia GI Prophylaxis: Ppi Prognosis is guarded
[2023-03-09 20:55] LABS: % Iron Saturation 91.67 (12.00-45.00)
[2023-03-10] MEDS: MIDODRINE 5 MG TAB PO SCH ×3 (05:49→16:28)
[2023-03-10] MEDS: LACTULOSE 20 GM/30 ML CUP PO SCH ×3 (08:06→19:59)
[2023-03-10] MEDS: FUROSEMIDE 10 MG/ML 4 ML VIAL IV SCH (08:06)
[2023-03-10] MEDS: levETIRAcetam 500 MG TAB PO SCH ×2 (08:07→20:00)
[2023-03-10] MEDS: RIFAXIMIN 550 MG TABLET PO SCH ×2 (08:07→20:00)
[2023-03-10] MEDS: SPIRONOLACTONE 25 MG TAB PO SCH (08:07)
[2023-03-10] MEDS: FLUoxetine HCL 20 MG CAP PO SCH (08:07)
[2023-03-10] MEDS: PANTOPRAZOLE 40 MG TABLET PO SCH (08:07)
[2023-03-10] MEDS: THIAMINE 100 MG TAB PO SCH (08:07)
--- NOTE | 2023-03-10 08:19 | US ---
Ultrasound-guided paracentesis. DATE OF EXAM: 03/09/2023 CLINICAL HISTORY: Ascites The procedure was discussed with the patient. The risks, complications, benefits, and alternatives we re discussed and any questions were answered. Informed consent was obtained. The patient was placed s upine on the ultrasound table and prepped and draped in the usual sterile fashion. All elements of maximal barrier technique were utilized. Under ultrasound guidance, access into the right lower quadrant was obtained, via the paracentesis catheter system and direct ultrasound guidanc e. Approximately 8.6 liters of straw-colored fluid was removed. The patient was stable throughout the pr ocedure and remained stable upon discharge from Department of Radiology. IMPRESSION: Successful paracentesis under ultrasound guidance.
[2023-03-10 10:18] LABS: African American GFR (CKD) 74 (>60 ml/min/1.73 sqM); Anion Gap 13 mmol/L; Blood Urea Nitrogen 46 mg/dL (7-17); Calcium 9.3 mg/dL (8.4-10.2); Carbon Dioxide 26 mmol/L (22-30); Chloride 99 mmol/L (98-107); Glucose 106 mg/dL (74-99); Magnesium 1.6 mg/dL (1.6-2.3); Non-African American GFR(CKD) 64 (>60 ml/min/1.73 sqM); Potassium 3.7 mmol/L (3.5-5.1); Sodium 138 mmol/L (137-145)
[2023-03-10] MEDS: PHYTONADIONE 10 MG in SODIUM CHLORIDE 0.9% 50 ML IVPB SCH (10:55)
[2023-03-10] MEDS ORDERED: POTASSIUM CHLORIDE ER 20 MEQ TAB.ER PO STA (11:12)
--- NOTE | 2023-03-10 11:14 | P.PN ---
Subjective Patient is seen in follow-up for acute kidney injury. Renal function better. Edema improved. Underwent paracentesis 03/09/2023 with 8.6 L drained. No active complaints at this time. Vital signs are stable. General: No acute distress. HEENT: Head exam is unremarkable. LUNGS: No audible rhonchi or wheezes. HEART: Rate and Rhythm are regular. ABDOMEN: Nontender. EXTREMITITES: 1+ edema. Objective - Vital Signs Vital signs: Vital Signs Temp 97.9 F 03/10/23 08:03 Pulse 95 03/10/23 08:04 Resp 16 03/10/23 08:03 BP 97/66 03/10/23 08:03 Pulse Ox 99 03/10/23 08:03 FiO2 Intake & Output 03/09/23 03/10/23 03/10/23 18:59 06:59 18:59 Intake Total 684 120 120 Output Total 1 202 Balance 683 -82 120 Weight 69.6 kg 60 kg Intake: IV 10 Invasive Line 3 10 Oral 120 110 Blood Product 684 Ffp 24 Cpd Unit 335 [id number] Platelet Pheresis Pas 349 Psoralen Unit [id number] Output: Urine 200 Stool 1 2 Other: Voiding Method Diaper Diaper Toilet External Catheter External Catheter Diaper External Catheter # Voids 1 3 1 - Labs CBC & Chem 7: 03/09/23 06:25 03/10/23 09:09 Labs: Abnormal Lab Results - Last 24 Hours (Table) 03/09/23 03/09/23 03/10/23 Range/Units 06:25 06:25 09:09 Plt Count 24 L (150-450) k/uL Lymphocytes # 0.8 L (1.0-4.8) k/uL BUN 46 H (7-17) mg/dL Glucose 106 H (74-99) mg/dL TIBC 168 L (228-460) UG/DL % Saturation 91.67 H (12.00-45.00) Transferrin 120.0 L (204.0-354.0) mg/dL Ferritin 667.0 H (10.0-291.0) ng/mL Assessment and Plan Plan: Assessment: 1. Acute kidney injury secondary to ATN secondary to hepatorenal syndrome. Baseline creatinine 0.8-0.9 and peaked at 1.4 on 03/09/2023 - 1.02 today. UA benign. 2. Alcohol-induced liver cirrhosis. 3. Volume overload with ascites. Paracentesis done 03/02/2022 to 9.5 L drained; another paracentesis done 03/09/2023 with 8.6 L drained. 4. Hypervolemic hyponatremia. 5. Anemia. Iron replete. 6. Hypomagnesemia from diuresis. Plan: Maintain Aldactone. Change Lasix to 40 mg po twice daily. Replace potassium. Low-salt diet and 1200 mL fluid restriction. Add oral magnesium oxide. Follow-up renal ultrasound. Continue to monitor renal function and urine output.
[2023-03-10] MEDS: MAGNESIUM OXIDE 400 MG TAB PO SCH ×2 (12:07→20:00)
--- NOTE | 2023-03-10 12:46 | US ---
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 Ascites present within the abdomen. 2. No acute renal ultrasound abnormality
[2023-03-10] MEDS: FUROSEMIDE 40 MG TAB PO SCH (16:28)
--- NOTE | 2023-03-11 00:02 | P.PN ---
Subjective 52-year-old lady with past medical history significant for decompensated liver cirrhosis, alcohol liver disease, history of alcohol use disorder, asthma, anxiety, depression, bipolar disorder, chronic anemia presents to the emergency department with complains of abdominal distention. Patient was recently admitted in the hospital from 01/31/2023 discharge on 02/10/2023 patient had high-volume paracentesis completed on 02/10 with 9.6 L of fluid removed. Patient presents with complains of shortness of breath and dizziness. Patient was sent in from her PCP office secondary to increased lower extremity swelling and shortness of breath ,She has patient has followed up with gastroenterology Dr. Alcantar. * Workup in ER included CBC which were WBC of 8.3 hemoglobin 8.2 platelet count of 34,000. Serum chemistry obtained sodium 131 potassium 4.9 carbon dioxide 20 B UN 14 creatinine 0.9 plasma lactate of 3, total bilirubin of 23 AST of 61 a LT of 38 albumin of 3.3 * Patient has decompensated liver cirrhosis, with recurrent hospitalization, brittany pearson September 2022 this is her 6th hospitalization. Her prognosis remains guarded was discussed with patient as well secondary to worsening liver cirrhosis * 02/28/2023: Patient seen and evaluated and bedside, patient alert and oriented 3, patient noted to have low blood pressure, hemoglobin noted to be on at 7.3, 1 unit of packed RBC ordered, it led count 27, INR 2.4, sodium 135 potassium 3.4 bilirubin 21.1 AST 52 ALT 31 albumin 2.9. Care plan and CODE STATUS discussed with patient. Patient explained the morbidity of underlying condition and was explained the prognosis as well. * 03/01/2023 : Patient seen and evaluated, patient alert and oriented 4, care plan discussed discussed with the patient has ever been seen by hepatology, patient states she might have had an appointment at [place] however does not remember. Liver profile and PT/INR continues to remain chronically elevated. Discussed with patient need for transfer to tertiary care center, at this time patient would want to do it if it's absolutely needed otherwise she would like to stay here in [place] * 03/02/2023: Patient seen and evaluated bedside, patient is alert and oriented 4, patient is a paracentesis today, potassium noted to be 3 which will be replaced, bilirubin 19, hemoglobin 7.6 platelet count of 30,000. Patient received platelet and neck Pain, INR 2.4 and follow-up. Will request gastroenterology evaluation as well * 03/03/2023 : Patient seen and evaluated bedside, patient is alert and oriented 4, mother at bedside, blood work reviewed, patient is status post paracentesis about 8.2 L of fluid removed, patient to be given albumin today, continue to follow up on CBC and platelet count potential discharge home within the next 24 hours * 03/04/2023: Patient seen and evaluated bedside patient is alert however does get confused during conversation, hemoglobin 7.1 patient to be given 1 unit of packed RBC, patient very weak will need physical therapy occupational therapy evaluation patient is in agreement and going to subacute rehab. We will give blood and follow-up on CBC tomorrow. Potential discharge to subacute rehab if patient remains hemodynamically stable. Potassium was replaced as well * 03/05/2023 : Patient seen and evaluated bedside, patient appears well, ultrasound abdomen does show ascites fluid, continue optimize medical management, gastro-nephrology following as well will coordinate with patient regarding discharge home versus rehab facility. * 03/06/2023: Patient seen and evaluated bedside, appreciate input from gastroenterology, tentative plan for paracentesis today. Plan to discharge home later today after paracentesis. Prescription for rifaximin consent, prescription for Midrin updated dose sent. Hemoglobin 8.2, serum sodium 134 bilirubin 18.9 chronically elevated. Patient doesn't want to go to subacute rehab she understands she is a high fall risk she would go home with home services, Patient was planned for DC after Paracentesis however [facility] could not be arranged in time and IR will do PAracentesis on 03/09/23 now.Patient to stay through weekened. 03/07/2023 Patient fully awake pleasant She has abdominal distention but no tenderness. No other new complaints Labs look similar to yesterday however her creatinine went up 0.9 1.3 We will monitor creatinine tomorrow and based on that plan for treatment. Patient is intended to have another paracentesis this coming Thursday albumin infusion 03/08/2023 Patient sitting in bed with no abdominal pain and no other new complaints She has abdominal distention and plan to get paracentesis abdomen effusion as well as fresh frozen plasma as her INR is elevated at 2.5. Also her creatinine is starts going up yesterday 1.3, today stable at 1.37. We will repeat labs tomorrow. Patient herself asked when she can go home. However she agrees to the planned so far. 03/09/2023 Patient underwent paracentesis and tolerated procedure well and she received of albumin 25 g before and after the procedure. Patient also with evidence of acute kidney injury with benign urine analysis, creatinine 1.4 area nephrology input is appreciated and patient was started on IV fluid restriction. Hemoglobin 7.5, platelet count 24. Itself looks comfortable has no specific complaints other than significant abdominal distention but also she has 3+ bilateral pitting like edema 03/10/2023 Patient creatinine improved to 1.4 down to 1.0 today Her IV Lasix wish to 40 mg twice daily. She is a bit more drowsy today this morning whenever she is already on lactulose and rifaximin. Patient will require outpatient follow-up Possible discharge in 24-48 hours Objective - Vital Signs Vital signs: Vital Signs Temp 98 F 03/10/23 12:06 Pulse 98 03/10/23 12:06 Resp 16 03/10/23 12:06 BP 92/58 03/10/23 12:06 Pulse Ox 100 03/10/23 12:06 FiO2 Intake & Output 03/09/23 03/10/23 03/10/23 18:59 06:59 18:59 Intake Total 684 120 120 Output Total 1 202 Balance 683 -82 120 Weight 69.6 kg 60 kg Intake: IV 10 Invasive Line 3 10 Oral 120 110 Blood Product 684 Ffp 24 Cpd Unit 335 [id number] Platelet Pheresis Pas 349 Psoralen Unit [id number] Output: Urine 200 Stool 1 2 Other: Voiding Method Diaper Diaper Toilet External Catheter External Catheter Diaper External Catheter # Voids 1 3 1 - Exam GENERAL: The patient is alert and oriented x3, not in any acute distress. Well developed, well nourished. HEENT: Pupils are round and equally reacting to light. EOMI. No scleral icterus. No conjunctival pallor. Normocephalic, atraumatic. No pharyngeal erythema. No thyromegaly. CARDIOVASCULAR: S1 and S2 present. No murmurs, rubs, or gallops. PULMONARY: Chest is clear to auscultation, no wheezing , no crackles. -ABDOMEN: Soft, nontender, distended, normoactive bowel sounds. No palpable organomegaly. MUSCULOSKELETAL: No joint swelling or deformity. EXTREMITIES: No cyanosis, clubbing, or pedal edema. NEUROLOGICAL: Gross neurological examination did not reveal any focal deficits. SKIN: No rashes. no petechiae. - Labs CBC & Chem 7: 03/09/23 06:25 03/10/23 09:09 Labs: Abnormal Lab Results - Last 24 Hours (Table) 03/09/23 03/10/23 Range/Units 06:25 09:09 BUN 46 H (7-17) mg/dL Glucose 106 H (74-99) mg/dL TIBC 168 L (228-460) UG/DL % Saturation 91.67 H (12.00-45.00) Transferrin 120.0 L (204.0-354.0) mg/dL Ferritin 667.0 H (10.0-291.0) ng/mL Assessment and Plan Assessment: * Decompensated liver cirrhosis with history of alcohol liver disease * Acute kidney injury , secondary to hepatorenal syndrome * Hyperbilirubinemia secondary to cirrhosis, recurrent ascites * Lactic acidosis likely hepatic in origin * Seizure disorder with history of breakthrough seizures * Coagulopathy with elevated INR secondary to hepatic disease * Chronic thrombocytopenia * Chronic anemia Plan: Continue with IV Lasix and fluid restriction Patient status post paracentesis Monitor other labs including hemoglobin and liver function tests and INR No GI service available this weekend Labs and medication were reviewed.. Continue same treatment. Continue with symptomatic treatment. Resume home medication. Monitor labs and vitals. DVT and GI prophylaxis. Further recommendations as per clinical course of the patient DVT prophylaxis: no Subcutaneous heparin, high INR and thrombocytopenia GI Prophylaxis: Ppi Prognosis is guarded
[2023-03-11] MEDS: MIDODRINE 5 MG TAB PO SCH ×2 (06:39→13:06)
[2023-03-11] MEDS ORDERED: FERROUS SULFATE 325 MG TAB PO SCH (07:30)
[2023-03-11] MEDS: RIFAXIMIN 550 MG TABLET PO SCH (08:57)
[2023-03-11] MEDS: THIAMINE 100 MG TAB PO SCH (08:57)
[2023-03-11] MEDS: SPIRONOLACTONE 25 MG TAB PO SCH (08:57)
[2023-03-11] MEDS: levETIRAcetam 500 MG TAB PO SCH (08:57)
[2023-03-11] MEDS: PANTOPRAZOLE 40 MG TABLET PO SCH (08:57)
[2023-03-11] MEDS: FUROSEMIDE 40 MG TAB PO SCH (08:57)
[2023-03-11] MEDS: MAGNESIUM OXIDE 400 MG TAB PO SCH (08:57)
[2023-03-11] MEDS: FLUoxetine HCL 20 MG CAP PO SCH (08:57)
[2023-03-11] MEDS: LACTULOSE 20 GM/30 ML CUP PO SCH (09:05)
[2023-03-11 09:21] VITALS: PULSE 100; RESP 16; TEMP 98.3
--- NOTE | 2023-03-11 10:27 | P.PN ---
Subjective Patient is seen in follow-up for acute kidney injury. Renal function improved. Edema improved. Underwent paracentesis 03/09/2023 with 8.6 L drained. No active complaints at this time. Vital signs are stable. General: No acute distress. HEENT: Head exam is unremarkable. LUNGS: No audible rhonchi or wheezes. HEART: Rate and Rhythm are regular. ABDOMEN: Nontender. Distention noted. EXTREMITITES: 1+ edema. Objective - Vital Signs Vital signs: Vital Signs Temp 98.3 F 03/11/23 08:55 Pulse 100 03/11/23 08:55 Resp 16 03/11/23 08:55 BP 94/57 03/11/23 08:55 Pulse Ox 95 03/11/23 08:55 FiO2 Intake & Output 03/10/23 03/11/23 03/11/23 18:59 06:59 18:59 Intake Total 488 10 Balance 488 10 Weight 60 kg Intake: IV 20 10 Invasive Line 3 20 10 Oral 468 Other: Voiding Method Toilet Toilet Diaper Diaper External Catheter # Voids 1 3 1 # Bowel Movements 2 1 - Labs CBC & Chem 7: 03/09/23 06:25 03/10/23 09:09 Assessment and Plan Plan: Assessment: 1. Acute kidney injury secondary to ATN secondary to hepatorenal syndrome. Baseline creatinine 0.8-0.9 and peaked at 1.4 on 03/09/2023 - 1.02 yesterday. UA benign. No hydronephrosis noted on kidney ultrasound. 2. Alcohol-induced liver cirrhosis. 3. Volume overload with ascites. Paracentesis done 03/02/2022 to 9.5 L drained; another paracentesis done 03/09/2023 with 8.6 L drained. 4. Hypervolemic hyponatremia. 5. Anemia. Iron replete. 6. Hypomagnesemia from diuresis. On oral magnesium oxide. Plan: Maintain Aldactone. Maintain Lasix. Low-salt diet and 1200 mL fluid restriction. Continue to monitor renal function and urine output.
[2023-03-11 10:39] LABS: African American GFR (CKD) 74 (>60 ml/min/1.73 sqM); Anion Gap 13 mmol/L; Blood Urea Nitrogen 41 mg/dL (7-17); Carbon Dioxide 27 mmol/L (22-30); Chloride 96 mmol/L (98-107); Glucose 84 mg/dL (74-99); Magnesium 1.6 mg/dL (1.6-2.3); Non-African American GFR(CKD) 64 (>60 ml/min/1.73 sqM); Potassium 4.1 mmol/L (3.5-5.1); Sodium 136 mmol/L (137-145)
[2023-03-11 11:00] LABS: INR 2.4 (<1.2); Prothrombin Time 23.8 sec (10.0-12.5)
[2023-03-11] MEDS: PHYTONADIONE 10 MG in SODIUM CHLORIDE 0.9% 50 ML IVPB SCH (13:05)
[2023-03-11 13:41] VITALS: BP 91/56
== END 2023-03-11 17:07 | disposition home health service (06) | DRG 280 ==
LOC: EC 09:46 → 5NMEDONC 13:36 → 3SCARD 21:09
PROVIDERS: ADMIT Internal Medicine; ATTEND Internal Medicine
PROC: 30233J1 Transfusion of Nonautologous Serum Albumin into Peripheral Vein, Percutaneous Approach (ICD-10-PCS; 2023-02-27)
PROC: 30233N1 Transfusion of Nonautologous Red Blood Cells into Peripheral Vein, Percutaneous Approach (ICD-10-PCS; 2023-02-28)
PROC: 0W9G3ZZ Drainage of Peritoneal Cavity, Percutaneous Approach (ICD-10-PCS; principal; 2023-03-02)
PROC: 30233K1 Transfusion of Nonautologous Frozen Plasma into Peripheral Vein, Percutaneous Approach (ICD-10-PCS; 2023-03-02)
PROC: 30233R1 Transfusion of Nonautologous Platelets into Peripheral Vein, Percutaneous Approach (ICD-10-PCS; 2023-03-02)
PROC: 6A551Z2 Pheresis of Platelets, Multiple (ICD-10-PCS; 2023-03-02)
PROC: 0W9G3ZZ Drainage of Peritoneal Cavity, Percutaneous Approach (ICD-10-PCS; 2023-03-09)
DX: K70.31 Alcoholic cirrhosis of liver with ascites (principal); K70.40 Alcoholic hepatic failure without coma; N17.0 Acute kidney failure with tubular necrosis; K76.7 Hepatorenal syndrome; E87.20 Acidosis, unspecified; D68.4 Acquired coagulation factor deficiency; D69.6 Thrombocytopenia, unspecified; E87.1 Hypo-osmolality and hyponatremia; D63.8 Anemia in other chronic diseases classified elsewhere; I95.9 Hypotension, unspecified; K76.82 Hepatic encephalopathy; G40.909 Epilepsy, unspecified, not intractable, without status epilepticus; F31.9 Bipolar disorder, unspecified; J45.909 Unspecified asthma, uncomplicated; F10.11 Alcohol abuse, in remission; R09.02 Hypoxemia; F17.210 Nicotine dependence, cigarettes, uncomplicated; E83.42 Hypomagnesemia; T50.2X5A Adverse effect of carbonic-anhydrase inhibitors, benzothiadiazides and other diuretics, initial encounter; E87.6 Hypokalemia; E87.70 Fluid overload, unspecified; F41.9 Anxiety disorder, unspecified; Y92.239 Unspecified place in hospital as the place of occurrence of the external cause; Z79.899 Other long term (current) drug therapy; Z88.0 Allergy status to penicillin; Z88.2 Allergy status to sulfonamides; Z91.018 Allergy to other foods
CPT/HCPCS: 36415; 36430; 49083; 71046; 72192; 74018; 76705; 76770; 80048; 80053; 81003; 82140; 82150; 82728; 83540; 83550; 83605; 83690; 83735; 83880; 85025; 85027; 85049; 85610; 85730; 86140; 86850; 86900; 86901; 86920; 93005; 96365; 96366; 96367; 96375; 99285

== ENCOUNTER 2023-03-22 19:37 | Inpatient (IN) | payer OTHER ==
[2023-03-22 20:29] LABS: Glucose,Whole Blood 104 mg/dL (70-110)
--- NOTE | 2023-03-22 20:33 | XR ---
EXAMINATION TYPE: XR chest 1V portable DATE OF EXAM: 03/22/2023 Comparison: 02/27/2023 Clinical History: 52-year-old female with confusion, altered mental status Findings: Heart normal size. Slightly low lung volumes with crowded vascular markings. Small left pleural effus ion and mild patchy left basilar opacity slightly increased. Impression: Slight increased small left pleural effusion with adjacent atelectasis and/or consolidation.
[2023-03-22 20:40] LABS: Appearance,Urine Clear (Clear); Bilirubin,Urine 1+ (Negative); Blood,Urine Negative (Negative); Color,Urine Dark Yellow; Glucose,Urine (UA) Negative (Negative); Ketones,Urine Negative (Negative); Leukocyte Esterase,Urine Negative (Negative); Nitrite,Urine Negative (Negative); Protein,Urine Negative (Negative); Specific Gravity,Urine 1.007 (1.001-1.035); Urobilinogen,Urine >12.0 mg/dL (<2.0)
[2023-03-22 20:53] LABS: Anisocytosis Moderate; Basophils % (A) 0 %; Eosinophils # (A) 0.1 k/uL (0-0.7); Eosinophils % (A) 1 %; HCT 20.9 % (34.0-46.0); Hypochromasia Slight; Lymphocytes % (A) 14 %; MCV 119.5 fL (80.0-100.0); Macrocytosis Marked; Mean Platelet Volume 9.8; Monocytes # (A) 0.4 k/uL (0-1.0); Monocytes % (A) 6 %; Neutrophils % (A) 74 %; Poikilocytosis Moderate; RBC 1.75 m/uL (3.80-5.40); RDW 20.7 % (11.5-15.5); WBC 6.8 k/uL (3.8-10.6)
[2023-03-22 20:59] LABS: HGB 7.2 gm/dL (11.4-16.0); MCH 40.4 pg (25.0-35.0); MCHC 34.3 g/dL (31.0-37.0)
[2023-03-22 21:01] LABS: Platelet Count 29 k/uL (150-450)
[2023-03-22 21:05] LABS: ALT 34 U/L (4-34); AST 47 U/L (14-36); African American GFR (CKD) 74 (>60 ml/min/1.73 sqM); Albumin 3.6 g/dL (3.5-5.0); Alcohol <10 mg/dL; Anion Gap 14 mmol/L; Blood Urea Nitrogen 23 mg/dL (7-17); Calcium 9.1 mg/dL (8.4-10.2); Carbon Dioxide 29 mmol/L (22-30); Chloride 91 mmol/L (98-107); Glucose 85 mg/dL (74-99); Magnesium 1.8 mg/dL (1.6-2.3); Non-African American GFR(CKD) 64 (>60 ml/min/1.73 sqM); Phosphorus 3.9 mg/dL (2.5-4.5); Potassium 3.3 mmol/L (3.5-5.1); Sodium 134 mmol/L (137-145)
[2023-03-22 21:08] LABS: INR 2.2 (<1.2); Partial Thromboplastin Time 36.8 sec (22.0-30.0)
[2023-03-22 21:16] LABS: Total Protein 7.7 g/dL (6.3-8.2)
[2023-03-22 21:17] LABS: Alkaline Phosphatase 139 U/L (38-126)
[2023-03-22 21:18] LABS: Total Bilirubin 31.2 mg/dL (0.2-1.3)
[2023-03-22] MEDS ORDERED: ONDANSETRON 4 MG/2 ML VIAL IVP STA (21:35)
[2023-03-22] MEDS ORDERED: SODIUM CHLORIDE 0.9% 1,000 ML IV ONE (21:35)
--- NOTE | 2023-03-22 21:40 | ED ---
General Adult HPI - General Chief complaint: Altered Mental Status Stated complaint: Alt Mental Time Seen by Provider: 03/22/23 20:04 Source: patient, family, EMS, RN notes reviewed Mode of arrival: EMS Limitations: altered mental status - History of Present Illness Initial comments: This a 52-year-old female presents emergency department via EMS for increased lethargy, dehydration. Patient has known liver cirrhosis, liver failure in which she is followed by Dr. Oliveira and [facility]. states that there is no specific treatment at this time there just awaiting possible transplant otherwise just supportive treatment. He states that he is concerned that she is dehydrated and she was unable to keep her medications down she's been requiring frequent paracentesis. He states that her weight has been stable over the last couple days and not specifically swollen in her abdomen. She has not been able take most medications including her lactulose. He does state that she has been more weak over the last 2 weeks and is not significant acute changes tonight. He does state that she is a full code - Related Data Home Medications Medication Instructions Recorded Confirmed FLUoxetine HCL [PROzac] 40 mg PO DAILY 10/01/22 03/22/23 Potassium Chloride ER [K-Dur 10] 10 meq PO DAILY 10/01/22 03/22/23 Thiamine [Vitamin B-1] 100 mg PO DAILY 10/01/22 03/22/23 Ubidecarenone [Coenzyme Q10] 100 mg PO DAILY 12/02/22 03/22/23 Pantoprazole Sodium [Protonix] 40 mg PO DAILY 02/27/23 03/22/23 Previous Rx's Medication Instructions Recorded Lactulose [Cephulac] 30 gm PO TID #120 ml 10/04/22 Phytonadione Oral [Vitamin K Oral] 5 mg PO DAILY #15 ml 12/04/22 levETIRAcetam [Keppra] 500 mg PO Q12HR #60 tab 01/05/23 Spironolactone [Aldactone] 100 mg PO DAILY #30 tab 01/15/23 Midodrine [ProAmatine] 15 mg PO AC-TID 30 Days #270 tab 03/06/23 Rifaximin [Xifaxan] 550 mg PO BID 30 Days #60 tab 03/06/23 Furosemide [Lasix] 40 mg PO BID@0900,1600 30 Days #60 03/11/23 tab Magnesium Oxide [Mag-Ox] 400 mg PO BID 3 Days #6 tab 03/11/23 Allergies Allergy/AdvReac Type Severity Reaction Status Date / Time Penicillins Allergy Swelling Verified 03/22/23 21:43 tongue Sulfa (Sulfonamide Allergy Swelling Verified 03/22/23 21:43 Antibiotics) tongue walnut Allergy Anaphylaxis Verified 03/22/23 21:43 Review of Systems ROS Statement: Those systems with pertinent positive or pertinent negative responses have been documented in the HPI. ROS Other: All systems not noted in ROS Statement are negative. Past Medical History Past Medical History: Asthma, Liver Disease Additional Past Medical History / Comment(s): ascites,paracentesis 12/28/22, low platelets, previous ETOH abuse, closed head injury, seizures History of Any Multi-Drug Resistant Organisms: None Reported Past Surgical History: No Surgical Hx Reported Additional Past Surgical History / Comment(s): repair to spleen [place] Ruptured spleen in 1988 Past Anesthesia/Blood Transfusion Reactions: No Reported Reaction Additional Past Anesthesia/Blood Transfusion Reaction / Comment(s): Unsure if had blood transfusion in past Past Psychological History: Anxiety, Bipolar, Depression Smoking Status: Current every day smoker Past Alcohol Use History: None Reported Past Drug Use History: None Reported - Past Family History Sister(s) Additional Family Medical History / Comment(s): closed head injury Mother Family Medical History: Diabetes Mellitus, Hyperlipidemia General Exam Limitations: altered mental status General appearance: alert, in no apparent distress Head exam: Present: atraumatic, normocephalic, normal inspection Eye exam: Present: PERRL, EOMI, scleral icterus. Absent: conjunctival injection, periorbital swelling ENT exam: Present: mucous membranes dry. Absent: normal exam, mucous membranes moist Neck exam: Present: normal inspection, full ROM. Absent: tenderness, meningismus, lymphadenopathy Respiratory exam: Present: normal lung sounds bilaterally. Absent: respiratory distress, wheezes, rales, rhonchi, stridor Cardiovascular Exam: Present: regular rate, normal rhythm, normal heart sounds. Absent: systolic murmur, diastolic murmur, rubs, gallop, clicks GI/Abdominal exam: Present: soft, normal bowel sounds. Absent: distended, tenderness, guarding, rebound, rigid Neurological exam: Present: alert. Absent: oriented X3 Skin exam: Present: warm, dry, intact. Absent: normal color (Icterus), rash Course Vital Signs 03/22/23 03/22/23 03/22/23 19:38 20:00 21:00 Temperature 97.6 F Pulse Rate 98 91 93 Respiratory 16 18 16 Rate Blood Pressure 93/58 93/58 90/54 O2 Sat by Pulse 96 94 L 96 Oximetry 03/22/23 03/22/23 03/23/23 22:00 23:41 01:04 Temperature Pulse Rate 93 98 96 Respiratory 17 18 17 Rate Blood Pressure 88/51 87/46 84/47 O2 Sat by Pulse 96 100 100 Oximetry EKG Findings - EKG Comments: EKG Findings:: EKG performed at 19:44 sinus rhythm with a rate of 93 FL 137 QRS 89 QT/QTC 427/478 - EKG Results: EKG: interpreted by EMY Medical Decision Making - Medical Decision Making Was pt. sent in by a medical professional or institution (, [place], CIRCUIT COURT CLERK, urgent care, hospital, or [place] health care facility...) When possible be specific @ -No Did you speak to anyone other than the patient for history (EMS, parent, family, police, friend...)? What history was obtained from this source @ -No Did you review nursing and triage notes (agree or disagree)? Why? @ -I reviewed and agree with nursing and triage notes Were old charts reviewed (outside hosp., previous admission, EMS record, old EKG, old radiological studies, urgent care reports/EKG's, [place] health care facility records)? Report findings @ -No old charts were reviewed Differential Diagnosis (chest pain, altered mental status, abdominal pain women, abdominal pain men, vaginal bleeding, weakness, fever, dyspnea, syncope, heada edy, dizziness, GI bleed, back pain, seizure, CVA, palpatations, mental health, musculoskeletal)? @ -[Differential Weakness: Hypoglycemia, shock, sepsis, hyponatremia, anemia, infection, MO, ETOH, adverse medicine reaction, overdose, stroke, this is not meant to be an all-inclusive list.Differential Abdominal Pain Women: Appendicitis, Cholecystitis, diverticulosis, ischemic bowel, pancreatitis, hepatitis, UTI, gastroenteritis, AAA, incarcerated hernia, bowel obstruction, constipation, inflammatory bowel, hepatitis, peptic ulcer disease, splenic infarction, perforated viscus, vulvitis, ovarian torsion, PID, kidney stone, placenta abruption, this is not meant to be an all-inclusive list EKG interpreted by me (3pts min.). @ -As above X-rays interpreted by me (1pt min.). @ -Chest x-ray shows mild effusion CT interpreted by me (1pt min.). @ -None done U/S interpreted by me (1pt. min.). @ -None done What testing was considered but not performed or refused? (CT, X-rays, U/S, labs)? Why? @ -None What meds were considered but not given or refused? Why? @ -None Did you discuss the management of the patient with other professionals (professionals i.e. DrWilman, [place], CIRCUIT COURT CLERK, lab, RT, psych nurse, high school social studies teacher, shell fisherman, teacher, employee service officer, block and case maker)? Give summary @ -I did discuss case with on-call hospitalist recommended patient be admitted back [facility] as was recently discharged from service. [facility] was contacted for admission. Was smoking cessation discussed for >3mins.? @ -No Was critical care preformed (if so, how long)? @ -No Were there social determinants of health that impacted care today? How? (Homelessness, low income, unemployed, alcoholism, drug addiction, transportation, low edu. Level, literacy, decrease access to med. care, usp, rehab)? @ -No Was there de-escalation of care discussed even if they declined (Discuss DNR or withdrawal of care, Hospice)? DNR status @ -No What co-morbidities impacted this encounter? (DM, HTN, Smoking, COPD, CAD, Cancer, CVA, ARF, Chemo, Hep., AIDS, mental health diagnosis, sleep apnea, morbid obesity)? @ -Chronic liver failure, alcohol abuse Was patient admitted / discharged? Hospital course, mention meds given and route, prescriptions, significant lab abnormalities, going to OR and other pertinent info. @ -Admitted patient has chronic liver failure is seen by Dr. Oliveira and [facility]. Advises there is no acute treatment for the patient and had recent visit on Thursday. Patient is concerned the patient has had increasing nausea vomiting not able to keep her meds down and requested patient to be admitted for nausea control, hydration and meds. Patient does any acute liver changes. Hemoglobin is stable at her baseline but she is chronically anemic. Patient has significant elevated bilirubin also chronic for patient. Undiagnosed new problem with uncertain prognosis? @ -No Drug Therapy requiring intensive monitoring for toxicity (Heparin, Nitro, Insulin, Cardizem)? @ -No Were any procedures done? @ -No Diagnosis/symptom? @ -Dehydration, nausea vomiting, liver failure Acute, or Chronic, or Acute on Chronic? @ -acute Uncomplicated (without systemic symptoms) or Complicated (systemic symptoms)? @ -[complicated Side effects of treatment? @ -No Exacerbation, Progression, or Severe Exacerbation? @ -No Poses a threat to life or bodily function? How? (Chest pain, USA, MO, pneumonia, PE, COPD, DKA, ARF, appy, cholecystitis, CVA, Diverticulitis, Homicidal, Suicidal, threat to staff... and all critical care pts) @ -[yes liver failure - Lab Data Result diagrams: 03/26/23 04:28 03/26/23 04:28 Lab Results 03/22/23 03/22/23 03/22/23 Range/Units 20:12 20:12 20:12 WBC 6.8 (3.8-10.6) k/uL RBC 1.75 L (3.80-5.40) m/uL Hgb 7.2 L (11.4-16.0) gm/dL Hct 20.9 L (34.0-46.0) % MCV 119.5 H (80.0-100.0) fL MCH 40.4 H (25.0-35.0) pg MCHC 34.3 (31.0-37.0) g/dL RDW 20.7 H (11.5-15.5) % Plt Count 29 L (150-450) k/uL MPV 9.8 Neutrophils % 74 % Lymphocytes % 14 % Monocytes % 6 % Eosinophils % 1 % Basophils % 0 % Neutrophils # 5.0 (1.3-7.7) k/uL Lymphocytes # 1.0 (1.0-4.8) k/uL Monocytes # 0.4 (0-1.0) k/uL Eosinophils # 0.1 (0-0.7) k/uL Basophils # 0.0 (0-0.2) k/uL Hypochromasia Slight Poikilocytosis Moderate Anisocytosis Moderate Macrocytosis Marked A PT 22.0 H (10.0-12.5) sec INR 2.2 H (<1.2) APTT 36.8 H (22.0-30.0) sec Sodium (137-145) mmol/L Potassium (3.5-5.1) mmol/L Chloride (98-107) mmol/L Carbon Dioxide (22-30) mmol/L Anion Gap mmol/L BUN (7-17) mg/dL Creatinine (0.52-1.04) mg/dL Est GFR (CKD-EPI)AfAm (>60 ml/min/1.73 sqM) Est GFR (CKD-EPI)NonAf (>60 ml/min/1.73 sqM) Glucose (74-99) mg/dL POC Glucose (mg/dL) (70-110) mg/dL POC Glu Animal Stunner ID Calcium (8.4-10.2) mg/dL Phosphorus (2.5-4.5) mg/dL Magnesium (1.6-2.3) mg/dL Total Bilirubin (0.2-1.3) mg/dL AST (14-36) U/L ALT (4-34) U/L Alkaline Phosphatase (38-126) U/L Ammonia (<30) umol/L Troponin I (0.000-0.034) ng/mL Total Protein (6.3-8.2) g/dL Albumin (3.5-5.0) g/dL Urine Color Dark Yellow Urine Appearance Clear (Clear) Urine pH 6.0 (5.0-8.0) Ur Specific [place] 1.007 (1.001-1.035) Urine Protein Negative (Negative) Urine Glucose (UA) Negative (Negative) Urine Ketones Negative (Negative) Urine Blood Negative (Negative) Urine Nitrite Negative (Negative) Urine Bilirubin 1+ H (Negative) Urine Urobilinogen >12.0 (<2.0) mg/dL Ur Leukocyte Esterase Negative (Negative) Serum Alcohol mg/dL SARS-CoV-2 (PCR) (Not Detectd) 03/22/23 03/22/23 03/22/23 Range/Units 20:12 20:12 20:12 WBC (3.8-10.6) k/uL RBC (3.80-5.40) m/uL Hgb (11.4-16.0) gm/dL Hct (34.0-46.0) % MCV (80.0-100.0) fL MCH (25.0-35.0) pg MCHC (31.0-37.0) g/dL RDW (11.5-15.5) % Plt Count (150-450) k/uL MPV Neutrophils % % Lymphocytes % % Monocytes % % Eosinophils % % Basophils % % Neutrophils # (1.3-7.7) k/uL Lymphocytes # (1.0-4.8) k/uL Monocytes # (0-1.0) k/uL Eosinophils # (0-0.7) k/uL Basophils # (0-0.2) k/uL Hypochromasia Poikilocytosis Anisocytosis Macrocytosis PT (10.0-12.5) sec INR (<1.2) APTT (22.0-30.0) sec Sodium 134 L (137-145) mmol/L Potassium 3.3 L (3.5-5.1) mmol/L Chloride 91 L (98-107) mmol/L Carbon Dioxide 29 (22-30) mmol/L Anion Gap 14 mmol/L BUN 23 H (7-17) mg/dL Creatinine 1.01 (0.52-1.04) mg/dL Est GFR (CKD-EPI)AfAm 74 (>60 ml/min/1.73 sqM) Est GFR (CKD-EPI)NonAf 64 (>60 ml/min/1.73 sqM) Glucose 85 (74-99) mg/dL POC Glucose (mg/dL) (70-110) mg/dL POC Glu Animal Stunner ID Calcium 9.1 (8.4-10.2) mg/dL Phosphorus 3.9 (2.5-4.5) mg/dL Magnesium 1.8 (1.6-2.3) mg/dL Total Bilirubin 31.2 H* (0.2-1.3) mg/dL AST 47 H (14-36) U/L ALT 34 (4-34) U/L Alkaline Phosphatase 139 H (38-126) U/L Ammonia 47 H (<30) umol/L Troponin I 0.018 (0.000-0.034) ng/mL Total Protein 7.7 (6.3-8.2) g/dL Albumin 3.6 (3.5-5.0) g/dL Urine Color Urine Appearance (Clear) Urine pH (5.0-8.0) Ur Specific [place] (1.001-1.035) Urine Protein (Negative) Urine Glucose (UA) (Negative) Urine Ketones (Negative) Urine Blood (Negative) Urine Nitrite (Negative) Urine Bilirubin (Negative) Urine Urobilinogen (<2.0) mg/dL Ur Leukocyte Esterase (Negative) Serum Alcohol <10 mg/dL SARS-CoV-2 (PCR) (Not Detectd) 03/22/23 03/22/23 Range/Units 20:12 20:28 WBC (3.8-10.6) k/uL RBC (3.80-5.40) m/uL Hgb (11.4-16.0) gm/dL Hct (34.0-46.0) % MCV (80.0-100.0) fL MCH (25.0-35.0) pg MCHC (31.0-37.0) g/dL RDW (11.5-15.5) % Plt Count (150-450) k/uL MPV Neutrophils % % Lymphocytes % % Monocytes % % Eosinophils % % Basophils % % Neutrophils # (1.3-7.7) k/uL Lymphocytes # (1.0-4.8) k/uL Monocytes # (0-1.0) k/uL Eosinophils # (0-0.7) k/uL Basophils # (0-0.2) k/uL Hypochromasia Poikilocytosis Anisocytosis Macrocytosis PT (10.0-12.5) sec INR (<1.2) APTT (22.0-30.0) sec Sodium (137-145) mmol/L Potassium (3.5-5.1) mmol/L Chloride (98-107) mmol/L Carbon Dioxide (22-30) mmol/L Anion Gap mmol/L BUN (7-17) mg/dL Creatinine (0.52-1.04) mg/dL Est GFR (CKD-EPI)AfAm (>60 ml/min/1.73 sqM) Est GFR (CKD-EPI)NonAf (>60 ml/min/1.73 sqM) Glucose (74-99) mg/dL POC Glucose (mg/dL) 104 (70-110) mg/dL POC Glu Animal Stunner ID Hayley Quiles Calcium (8.4-10.2) mg/dL Phosphorus (2.5-4.5) mg/dL Magnesium (1.6-2.3) mg/dL Total Bilirubin (0.2-1.3) mg/dL AST (14-36) U/L ALT (4-34) U/L Alkaline Phosphatase (38-126) U/L Ammonia (<30) umol/L Troponin I (0.000-0.034) ng/mL Total Protein (6.3-8.2) g/dL Albumin (3.5-5.0) g/dL Urine Color Urine Appearance (Clear) Urine pH (5.0-8.0) Ur Specific [place] (1.001-1.035) Urine Protein (Negative) Urine Glucose (UA) (Negative) Urine Ketones (Negative) Urine Blood (Negative) Urine Nitrite (Negative) Urine Bilirubin (Negative) Urine Urobilinogen (<2.0) mg/dL Ur Leukocyte Esterase (Negative) Serum Alcohol mg/dL SARS-CoV-2 (PCR) Not Detected (Not Detectd) Disposition Clinical Impression: Cirrhosis of liver, Hepatic encephalopathy, Dehydration, Nausea & vomiting, Jaundice Disposition: ADMITTED IP TO THIS [facility] Condition: Poor
[2023-03-22] MEDS ORDERED: NALOXONE 0.4 MG/ML 1 ML VIAL IV PRN (22:52)
[2023-03-22] MEDS ORDERED: ONDANSETRON 4 MG/2 ML VIAL IVP PRN (22:52)
[2023-03-22] MEDS: SODIUM CHLORIDE 0.9% 1,000 ML IV SCH (23:01)
[2023-03-22] MEDS: LACTULOSE 20 GM/30 ML CUP PO SCH (23:03)
[2023-03-23] MEDS: MIDODRINE 5 MG TAB PO SCH ×3 (06:19→17:09)
[2023-03-23] MEDS ORDERED: NON FORMULARY DRUG (Ubidecarenone [Coenzyme Q10] 50 MG Capsule) PO SCH (09:00)
[2023-03-23] MEDS: LACTULOSE 20 GM/30 ML CUP PO SCH ×3 (09:43→20:12)
[2023-03-23] MEDS: levETIRAcetam 500 MG TAB PO SCH ×2 (09:44→20:12)
[2023-03-23] MEDS: POTASSIUM CHLORIDE ER 10 MEQ TAB.ER.PRT PO SCH (09:44)
[2023-03-23] MEDS: RIFAXIMIN 550 MG TABLET PO SCH ×2 (09:44→20:12)
[2023-03-23] MEDS: FLUoxetine HCL 20 MG CAP PO SCH (09:44)
[2023-03-23] MEDS: PANTOPRAZOLE 40 MG TABLET PO SCH (09:44)
[2023-03-23] MEDS: THIAMINE 100 MG TAB PO SCH (09:44)
[2023-03-23] MEDS: MAGNESIUM OXIDE 400 MG TAB PO SCH ×2 (09:44→20:11)
[2023-03-23] MEDS: PHYTONADIONE ORAL 5 MG/5 ML ORAL.SYRG PO SCH (09:45)
[2023-03-23] MEDS: SPIRONOLACTONE 25 MG TAB PO SCH (10:17)
[2023-03-23] MEDS: FUROSEMIDE 40 MG TAB PO SCH ×2 (10:17→15:40)
[2023-03-23] MEDS: SODIUM CHLORIDE 0.9% 1,000 ML IV SCH ×2 (12:41→23:24)
--- NOTE | 2023-03-23 16:37 | P.HPIM ---
History of Present Illness H&P Date: 03/23/23 Chief Complaint: Altered mental status 52-year-old female presents emergency department via EMS for increased lethargy, dehydration. Patient has known liver cirrhosis, liver failure in which she is followed by Dr. Oliveira and [facility]. states that there is no specific treatment at this time there just awaiting possible transplant otherwise just supportive treatment. He states that he is concerned that she is dehydrated and she was unable to keep her medications down she's been requiring frequent paracentesis. He states that her weight has been stable over the last couple days and not specifically swollen in her abdomen. She has not been able take most medications including her lactulose. He does state that she has been more weak over the last 2 weeks and is not significant acute changes tonight. He does state that she is a full code Laboratory review shows WBC of 6.8, hemoglobin 7.2 and platelet count of 29, sodium 134: Present currently BUN/creatinine of 23/1.0, ammonia level of 47 UA is unremarkable Review of Systems ROS unobtainable: due to mental status Past Medical History Past Medical History: Asthma, Liver Disease Additional Past Medical History / Comment(s): ascites,paracentesis 12/28/22, low platelets, previous ETOH abuse, closed head injury, seizures History of Any Multi-Drug Resistant Organisms: None Reported Past Surgical History: No Surgical Hx Reported Additional Past Surgical History / Comment(s): repair to spleen [place] Ruptured spleen in 1988 Past Anesthesia/Blood Transfusion Reactions: No Reported Reaction Additional Past Anesthesia/Blood Transfusion Reaction / Comment(s): Unsure if had blood transfusion in past Past Psychological History: Anxiety, Bipolar, Depression Additional Psychological History / Comment(s): ETOH use Smoking Status: Current every day smoker Past Alcohol Use History: None Reported Additional Past Alcohol Use History / Comment(s): Stated that pt quit drinking in August 2022 Past Drug Use History: None Reported Additional Drug Use History / Comment(s): Marijuana use; Smokes a pack a day of cigarettes - Past Family History Sister(s) Additional Family Medical History / Comment(s): closed head injury Mother Family Medical History: Diabetes Mellitus, Hyperlipidemia Medications and Allergies Home Medications Medication Instructions Recorded Confirmed Type FLUoxetine HCL [PROzac] 40 mg PO DAILY 10/01/22 03/22/23 History Potassium Chloride ER [K-Dur 10] 10 meq PO DAILY 10/01/22 03/22/23 History Thiamine [Vitamin B-1] 100 mg PO DAILY 10/01/22 03/22/23 History Lactulose [Cephulac] 30 gm PO TID #120 ml 10/04/22 03/22/23 Rx Ubidecarenone [Coenzyme Q10] 100 mg PO DAILY 12/02/22 03/22/23 History Phytonadione Oral [Vitamin K Oral] 5 mg PO DAILY #15 ml 12/04/22 03/22/23 Rx levETIRAcetam [Keppra] 500 mg PO Q12HR #60 tab 01/05/23 03/22/23 Rx Spironolactone [Aldactone] 100 mg PO DAILY #30 tab 01/15/23 03/22/23 Rx Pantoprazole Sodium [Protonix] 40 mg PO DAILY 02/27/23 03/22/23 History Midodrine [ProAmatine] 15 mg PO AC-TID 30 Days #270 tab 03/06/23 03/22/23 Rx Rifaximin [Xifaxan] 550 mg PO BID 30 Days #60 tab 03/06/23 03/22/23 Rx Furosemide [Lasix] 40 mg PO BID@0900,1600 30 Days #60 03/11/23 03/22/23 Rx tab Magnesium Oxide [Mag-Ox] 400 mg PO BID 3 Days #6 tab 03/11/23 03/22/23 Rx Allergies Allergy/AdvReac Type Severity Reaction Status Date / Time Penicillins Allergy Swelling Verified 03/22/23 21:43 tongue Sulfa (Sulfonamide Allergy Swelling Verified 03/22/23 21:43 Antibiotics) tongue walnut Allergy Anaphylaxis Verified 03/22/23 21:43 Physical Exam Vitals: Vital Signs Temp Pulse Pulse Resp BP BP BP 03/23/23 07:00 97.9 F 91 16 96/62 03/23/23 02:13 97.7 F 94 19 97/60 03/23/23 01:04 96 17 84/47 03/22/23 23:41 98 18 87/46 03/22/23 22:00 93 17 88/51 03/22/23 21:00 93 16 90/54 03/22/23 20:00 91 18 93/58 03/22/23 19:38 97.6 F 98 16 93/58 Pulse Ox 03/23/23 07:00 98 03/23/23 02:13 100 03/23/23 01:04 100 03/22/23 23:41 100 03/22/23 22:00 96 03/22/23 21:00 96 03/22/23 20:00 94 L 03/22/23 19:38 96 Intake and Output 03/22/23 03/23/23 03/23/23 22:59 06:59 14:59 Other: Voiding Method External Catheter External Catheter # Voids 0 # Bowel Movements 1 Weight 54.431 kg 54.431 kg General appearance: alert, in no apparent distress Head exam: Present: atraumatic, normocephalic, normal inspection Eye exam: Present: PERRL, EOMI, scleral icterus. Absent: conjunctival injection, periorbital swelling ENT exam: Present: mucous membranes dry. Absent: normal exam, mucous membranes moist Neck exam: Present: normal inspection, full ROM. Absent: tenderness, meningismus, lymphadenopathy Respiratory exam: Present: normal lung sounds bilaterally. Absent: respiratory distress, wheezes, rales, rhonchi, stridor Cardiovascular Exam: Present: regular rate, normal rhythm, normal heart sounds. Absent: systolic murmur, diastolic murmur, rubs, gallop, clicks GI/Abdominal exam: Present: soft, normal bowel sounds. Absent: distended, tenderness, guarding, rebound, rigid Neurological exam: Present: alert. Absent: oriented X3 Skin exam: Present: warm, dry, intact. Absent: normal color (Icterus), rash Results CBC & Chem 7: 03/22/23 20:12 03/22/23 20:12 Labs: Abnormal Lab Results - Last 24 Hours (Table) 03/22/23 03/22/23 03/22/23 Range/Units 20:12 20:12 20:12 RBC 1.75 L (3.80-5.40) m/uL Hgb 7.2 L (11.4-16.0) gm/dL Hct 20.9 L (34.0-46.0) % MCV 119.5 H (80.0-100.0) fL MCH 40.4 H (25.0-35.0) pg RDW 20.7 H (11.5-15.5) % Plt Count 29 L (150-450) k/uL Macrocytosis Marked A PT 22.0 H (10.0-12.5) sec INR 2.2 H (<1.2) APTT 36.8 H (22.0-30.0) sec Sodium (137-145) mmol/L Potassium (3.5-5.1) mmol/L Chloride (98-107) mmol/L BUN (7-17) mg/dL Total Bilirubin (0.2-1.3) mg/dL AST (14-36) U/L Alkaline Phosphatase (38-126) U/L Ammonia (<30) umol/L Urine Bilirubin 1+ H (Negative) 03/22/23 03/22/23 Range/Units 20:12 20:12 RBC (3.80-5.40) m/uL Hgb (11.4-16.0) gm/dL Hct (34.0-46.0) % MCV (80.0-100.0) fL MCH (25.0-35.0) pg RDW (11.5-15.5) % Plt Count (150-450) k/uL Macrocytosis PT (10.0-12.5) sec INR (<1.2) APTT (22.0-30.0) sec Sodium 134 L (137-145) mmol/L Potassium 3.3 L (3.5-5.1) mmol/L Chloride 91 L (98-107) mmol/L BUN 23 H (7-17) mg/dL Total Bilirubin 31.2 H* (0.2-1.3) mg/dL AST 47 H (14-36) U/L Alkaline Phosphatase 139 H (38-126) U/L Ammonia 47 H (<30) umol/L Urine Bilirubin (Negative) Assessment and Plan Assessment: 1. Altered mental status/hepatic encephalopathy -- Patient is placed on lactulose 30 g by mouth 3 times a day; continue with home dose of rifaximin 550 mg by mouth twice a day - Patient remains on Lasix 40 mg by mouth twice a day, Aldactone 100 mg daily - We will monitor neuro checks; trend ammonia levels 2. Seizure disorder; Keppra 500 mg twice a day 3. Alcoholic liver disease; patient remains on thiamine and folic acid; currently awaits liver transplant 4. Depression; Prozac 40 mg daily 5. Gastroesophageal reflux disease; Protonix 40 mg daily 6. Coagulopathy; INR is elevated at 2.2; patient received vitamin K in ED DVT prophylaxis; SCDs CODE STATUS; full code
[2023-03-23] MEDS ORDERED: SODIUM CHLORIDE 0.9% 500 ML 250 ML IV ONE (20:32)
[2023-03-24] MEDS: MIDODRINE 5 MG TAB PO SCH ×3 (06:28→17:21)
[2023-03-24] MEDS: levETIRAcetam 500 MG TAB PO SCH ×2 (08:53→22:27)
[2023-03-24] MEDS: FLUoxetine HCL 20 MG CAP PO SCH (08:53)
[2023-03-24] MEDS: LACTULOSE 20 GM/30 ML CUP PO SCH ×3 (08:53→22:33)
[2023-03-24] MEDS: PHYTONADIONE ORAL 5 MG/5 ML ORAL.SYRG PO SCH (08:53)
[2023-03-24] MEDS: MAGNESIUM OXIDE 400 MG TAB PO SCH ×2 (08:53→22:29)
[2023-03-24] MEDS: POTASSIUM CHLORIDE ER 10 MEQ TAB.ER.PRT PO SCH (08:54)
[2023-03-24] MEDS: PANTOPRAZOLE 40 MG TABLET PO SCH ×2 (08:54→22:28)
[2023-03-24] MEDS: RIFAXIMIN 550 MG TABLET PO SCH ×2 (08:54→22:31)
[2023-03-24] MEDS: THIAMINE 100 MG TAB PO SCH (08:54)
[2023-03-24 09:30] LABS: BUN/Creat Ratio 22.86 Ratio (12.00-20.00); Calcium 8.7 mg/dL (8.7-10.3); Carbon Dioxide 26.8 mmol/L (21.6-31.8); Chloride 100 mmol/L (96-109); Glucose 86 mg/dL (70-110); Potassium 2.9 mmol/L (3.5-5.5); Sodium 140 mmol/L (135-145)
[2023-03-24 09:57] LABS: Basophils # (A) 0.02 X 10*3/uL (0.00-0.10); Basophils % (A) 0.3 %; Eosinophils # (A) 0.12 X 10*3/uL (0.04-0.35); Eosinophils % (A) 1.9 %; HCT 18.7 % (37.2-46.3); Immature Platelet Fraction 4.9 % (1.1-6.1); Lymphocytes # (A) 0.82 X 10*3/uL (0.90-5.00); MCHC 32.1 g/dL (32.0-37.0); MCV 130.8 FL (80.0-97.0); Mean Platelet Volume 10.8 FL (9.5-12.2); Monocytes # (A) 0.53 X 10*3/uL (0.20-1.00); Monocytes % (A) 8.4 %; NRBC Per 100 WBC 0.06 X 10*3/uL (0.00-0.01); Neutrophils # (A) 4.68 X 10*3/uL (1.80-7.70); Neutrophils % (A) 74.5 %; Platelet Count 30 X 10*3/uL (140-440); RBC 1.43 X 10*6/uL (4.10-5.20); RDW 23.4 % (11.5-14.5); WBC 6.29 X 10*3/uL (4.50-10.00)
[2023-03-24 10:01] LABS: INR 2.3 sec (0.93-1.11); Prothrombin Time 23.5 sec (9.9-11.9)
[2023-03-24] MEDS ORDERED: Magnesium Replacement Protocol 1 EACH MISC MISCELLANE PRN (10:25)
[2023-03-24] MEDS ORDERED: Potassium Replacement Protocol 1 EACH MISC MISCELLANE PRN (10:25)
[2023-03-24] MEDS: SPIRONOLACTONE 25 MG TAB PO SCH (10:32)
[2023-03-24] MEDS: FUROSEMIDE 40 MG TAB PO SCH ×2 (10:32→16:07)
--- NOTE | 2023-03-24 12:30 | US ---
EXAMINATION TYPE: US abdomen limited DATE OF EXAM: 03/24/2023 COMPARISON: NONE CLINICAL INDICATION: Female, 52 years old with history of ascites; TECHNIQUE: Grayscale imaging of the abdomen pelvis for ascites. FINDINGS: Ascites seen all 4 abdominal quadrants Nurse stated bladder scanner recorded 900mL in patient bladder but could only get 300mL from catheter . Bladder scanned for patients safety - WNL as vis. IMPRESSION: Moderate abdominal ascites.
[2023-03-24] MEDS: POTASSIUM CHLORIDE ER 20 MEQ TAB.ER PO SCH ×3 (13:11→17:21)
[2023-03-24] MEDS: SODIUM CHLORIDE 0.9% 1,000 ML IV SCH (13:11)
--- NOTE | 2023-03-24 16:12 | P.GSCN ---
History of Present Illness Consult date: 03/24/23 Reason for Consult: GI bleed History of present illness: Is a 52-year-old female with end-stage liver disease. Patient is a known cirrhotic. Patient states she was vomiting blood last night at home. Her hemoglobin was 6.6. Patient's early receiving blood transfusion. She denies any significant abdominal pain. Past Medical History Past Medical History: Asthma, Liver Disease Additional Past Medical History / Comment(s): ascites,paracentesis 12/28/22, low platelets, previous ETOH abuse, closed head injury, seizures History of Any Multi-Drug Resistant Organisms: None Reported Past Surgical History: No Surgical Hx Reported Additional Past Surgical History / Comment(s): repair to spleen [place] Ruptured spleen in 1988 Past Anesthesia/Blood Transfusion Reactions: No Reported Reaction Additional Past Anesthesia/Blood Transfusion Reaction / Comm: Unsure if had blood transfusion in past Past Psychological History: Anxiety, Bipolar, Depression Additional Psychological History / Comment(s): ETOH use Smoking Status: Current every day smoker Past Alcohol Use History: None Reported Additional Past Alcohol Use History / Comment(s): Stated that pt quit drinking in August 2022 Past Drug Use History: None Reported Additional Drug Use History / Comment(s): Marijuana use; Smokes a pack a day of cigarettes - Past Family History Sister(s) Additional Family Medical History / Comment(s): closed head injury Mother Family Medical History: Diabetes Mellitus, Hyperlipidemia Medications and Allergies Home Medications Medication Instructions Recorded Confirmed Type FLUoxetine HCL [PROzac] 40 mg PO DAILY 10/01/22 03/22/23 History Potassium Chloride ER [K-Dur 10] 10 meq PO DAILY 10/01/22 03/22/23 History Thiamine [Vitamin B-1] 100 mg PO DAILY 10/01/22 03/22/23 History Lactulose [Cephulac] 30 gm PO TID #120 ml 10/04/22 03/22/23 Rx Ubidecarenone [Coenzyme Q10] 100 mg PO DAILY 12/02/22 03/22/23 History Phytonadione Oral [Vitamin K Oral] 5 mg PO DAILY #15 ml 12/04/22 03/22/23 Rx levETIRAcetam [Keppra] 500 mg PO Q12HR #60 tab 01/05/23 03/22/23 Rx Spironolactone [Aldactone] 100 mg PO DAILY #30 tab 10/19/23 12/24/23 Rx Pantoprazole Sodium [Protonix] 40 mg PO DAILY 02/27/23 03/22/23 History Midodrine [ProAmatine] 15 mg PO AC-TID 30 Days #270 tab 03/06/23 03/22/23 Rx Rifaximin [Xifaxan] 550 mg PO BID 30 Days #60 tab 03/06/23 03/22/23 Rx Furosemide [Lasix] 40 mg PO BID@0900,1600 30 Days #60 03/11/23 03/22/23 Rx tab Magnesium Oxide [Mag-Ox] 400 mg PO BID 3 Days #6 tab 03/11/23 03/22/23 Rx Allergies Allergy/AdvReac Type Severity Reaction Status Date / Time Penicillins Allergy Swelling Verified 03/22/23 21:43 tongue Sulfa (Sulfonamide Allergy Swelling Verified 03/22/23 21:43 Antibiotics) tongue walnut Allergy Anaphylaxis Verified 03/22/23 21:43 Surgical - Exam Vital Signs Temp Pulse Resp BP Pulse Ox 97.6 F 98 16 93/58 96 03/22/23 19:38 03/22/23 19:38 03/22/23 19:38 03/22/23 19:38 03/22/23 19:38 - General Patient looks chronically ill cachectic with obvious jaundice. moderate distress - Eyes icteric - Respiratory normal expansion - Abdomen Abdomen: soft, non tender Results - Labs 03/24/23 06:00 03/24/23 06:00 Abnormal Lab Results - Last 24 Hours (Table) 03/24/23 03/24/23 03/24/23 Range/Units 06:00 06:00 06:00 RBC 1.43 L (4.10-5.20) X 10*6/uL Hgb 6.0 A* (12.0-15.0) g/dL Hct 18.7 A* (37.2-46.3) % MCV 130.8 H (80.0-97.0) FL MCH 42.0 H (27.0-32.0) pg RDW 23.4 H (11.5-14.5) % Plt Count 30 L (140-440) X 10*3/uL Immature Gran # 0.12 H (0.00-0.04) X 10*3/uL Lymphocytes # 0.82 L (0.90-5.00) X 10*3/uL NRBC/100 WBC Diff 0.06 H (0.00-0.01) X 10*3/uL PT 23.5 H (9.9-11.9) sec INR 2.30 H (0.93-1.11) sec Potassium 2.9 L (3.5-5.5) mmol/L Anion Gap 13.20 H (4.00-12.00) mmol/L BUN/Creatinine Ratio 22.86 H (12.00-20.00) Ratio Crossmatch 03/24/23 Range/Units 12:15 RBC (4.10-5.20) X 10*6/uL Hgb (12.0-15.0) g/dL Hct (37.2-46.3) % MCV (80.0-97.0) FL MCH (27.0-32.0) pg RDW (11.5-14.5) % Plt Count (140-440) X 10*3/uL Immature Gran # (0.00-0.04) X 10*3/uL Lymphocytes # (0.90-5.00) X 10*3/uL NRBC/100 WBC Diff (0.00-0.01) X 10*3/uL PT (9.9-11.9) sec INR (0.93-1.11) sec Potassium (3.5-5.5) mmol/L Anion Gap (4.00-12.00) mmol/L BUN/Creatinine Ratio (12.00-20.00) Ratio Crossmatch See Detail Diabetes panel 03/24/23 Range/Units 06:00 Sodium 140 (135-145) mmol/L Potassium 2.9 L (3.5-5.5) mmol/L Chloride 100 (96-109) mmol/L Carbon Dioxide 26.8 (21.6-31.8) mmol/L BUN 16.0 (9.0-27.0) mg/dL Creatinine 0.7 (0.6-1.5) mg/dL Glucose 86 (70-110) mg/dL Calcium 8.7 (8.7-10.3) mg/dL Calcium panel 03/24/23 Range/Units 06:00 Calcium 8.7 (8.7-10.3) mg/dL Pituitary panel 03/24/23 Range/Units 06:00 Sodium 140 (135-145) mmol/L Potassium 2.9 L (3.5-5.5) mmol/L Chloride 100 (96-109) mmol/L Carbon Dioxide 26.8 (21.6-31.8) mmol/L BUN 16.0 (9.0-27.0) mg/dL Creatinine 0.7 (0.6-1.5) mg/dL Glucose 86 (70-110) mg/dL Calcium 8.7 (8.7-10.3) mg/dL Adrenal panel 03/24/23 Range/Units 06:00 Sodium 140 (135-145) mmol/L Potassium 2.9 L (3.5-5.5) mmol/L Chloride 100 (96-109) mmol/L Carbon Dioxide 26.8 (21.6-31.8) mmol/L BUN 16.0 (9.0-27.0) mg/dL Creatinine 0.7 (0.6-1.5) mg/dL Glucose 86 (70-110) mg/dL Calcium 8.7 (8.7-10.3) mg/dL Assessment and Plan Assessment: GI bleed. History of cirrhosis. Patient will need to be transferred due to possible variceal bleed. There is no GI support this week.
--- NOTE | 2023-03-24 18:09 | P.PN ---
Subjective 52-year-old female presents emergency department via EMS for increased lethargy, dehydration. Patient has known liver cirrhosis, liver failure in which she is followed by Dr. Oliveira and [facility]. states that there is no specific treatment at this time there just awaiting possible transplant otherwise just supportive treatment. He states that he is concerned that she is dehydrated and she was unable to keep her medications down she's been requiring frequent paracentesis. He states that her weight has been stable over the last couple days and not specifically swollen in her abdomen. She has not been able take most medications including her lactulose. He does state that she has been more weak over the last 2 weeks and is not significant acute changes tonight. He does state that she is a full code Laboratory review shows WBC of 6.8, hemoglobin 7.2 and platelet count of 29, sodium 134: Present currently BUN/creatinine of 23/1.0, ammonia level of 47 UA is unremarkable 03/24/2023 Patient admitted about 5 days ago for hepatic encephalopathy and she was placed on lactulose and rifaximin. Her mentation is improved today close to baseline and she is awake alert and interactive, she is somewhat slow to respond and mildly drowsy but she is improving. However she vomited blood today and hemoglobin dropped from baseline of 7.2 and 7-8 down to 6.0 today. She is getting vitamin K. Platelet chronically low around 30 K. She is on IV Protonix Consults surgery team who recommended transfer the patient I discussed the case with Dr. Gonzales and he accepted the patient for transfer pending displacement Objective - Vital Signs Vital signs: Vital Signs Temp 97.5 F L 03/24/23 16:10 Pulse 72 03/24/23 16:10 Resp 15 03/24/23 16:10 BP 94/58 03/24/23 16:10 Pulse Ox 100 03/24/23 16:10 FiO2 Intake & Output 03/23/23 03/24/23 03/24/23 18:59 06:59 18:59 Intake Total 0 100 480 Output Total 201 225 350 Balance -201 -125 130 Intake: Oral 0 100 480 Blood Product 0 Rc As-1 Unit 0 [id number] Output: Urine 200 225 350 Straight 350 Stool 1 Other: Voiding Method External Catheter External Catheter External Catheter # Voids 0 - Exam -GENERAL: The patient is alert and oriented x1-2, not in any acute lethargic -HEENT: Pupils are round and equally reacting to light. EOMI. No scleral icterus. No conjunctival pallor. Normocephalic, atraumatic. No pharyngeal erythema. No thyromegaly. Jaundiced with the ossicular and skin CARDIOVASCULAR: S1 and S2 present. No murmurs, rubs, or gallops. PULMONARY: Chest is clear to auscultation, no wheezing , no crackles. -ABDOMEN: Soft, nontender, mildly distended, normoactive bowel sounds. No palpable organomegaly. MUSCULOSKELETAL: No joint swelling or deformity. EXTREMITIES: No cyanosis, clubbing, or pedal edema. NEUROLOGICAL: Gross neurological examination did not reveal any focal deficits. SKIN: No rashes. no petechiae. - Labs CBC & Chem 7: 03/24/23 06:00 03/24/23 06:00 Labs: Abnormal Lab Results - Last 24 Hours (Table) 03/24/23 03/24/23 03/24/23 Range/Units 06:00 06:00 06:00 RBC 1.43 L (4.10-5.20) X 10*6/uL Hgb 6.0 A* (12.0-15.0) g/dL Hct 18.7 A* (37.2-46.3) % MCV 130.8 H (80.0-97.0) FL MCH 42.0 H (27.0-32.0) pg RDW 23.4 H (11.5-14.5) % Plt Count 30 L (140-440) X 10*3/uL Immature Gran # 0.12 H (0.00-0.04) X 10*3/uL Lymphocytes # 0.82 L (0.90-5.00) X 10*3/uL NRBC/100 WBC Diff 0.06 H (0.00-0.01) X 10*3/uL PT 23.5 H (9.9-11.9) sec INR 2.30 H (0.93-1.11) sec Potassium 2.9 L (3.5-5.5) mmol/L Anion Gap 13.20 H (4.00-12.00) mmol/L BUN/Creatinine Ratio 22.86 H (12.00-20.00) Ratio Crossmatch 03/24/23 Range/Units 12:15 RBC (4.10-5.20) X 10*6/uL Hgb (12.0-15.0) g/dL Hct (37.2-46.3) % MCV (80.0-97.0) FL MCH (27.0-32.0) pg RDW (11.5-14.5) % Plt Count (140-440) X 10*3/uL Immature Gran # (0.00-0.04) X 10*3/uL Lymphocytes # (0.90-5.00) X 10*3/uL NRBC/100 WBC Diff (0.00-0.01) X 10*3/uL PT (9.9-11.9) sec INR (0.93-1.11) sec Potassium (3.5-5.5) mmol/L Anion Gap (4.00-12.00) mmol/L BUN/Creatinine Ratio (12.00-20.00) Ratio Crossmatch See Detail Assessment and Plan Assessment: 1. Altered mental status/hepatic encephalopathy -- Patient is placed on lactulose 30 g by mouth 3 times a day; continue with ho me dose of rifaximin 550 mg by mouth twice a day - Patient remains on Lasix 40 mg by mouth twice a day, Aldactone 100 mg daily - We will monitor neuro checks; trend ammonia levels - Patient accepted at [facility] 2. Hematemesis with blood loss anemia -320 units of blood - Monitor hemoglobin -Continue with Protonix. - patient was accepted at [facility] pending bed placement 3. Alcoholic liver disease; patient remains on thiamine and folic acid; currently awaits liver transplant 4. Depression; Prozac 40 mg daily 5. Gastroesophageal reflux disease; Protonix 40 mg daily 6. Coagulopathy; INR is elevated at 2.2; patient received vitamin K in ED DVT prophylaxis; SCDs CODE STATUS; full code
[2023-03-24 22:20] LABS: Anisocytosis Moderate; Basophils % (A) 0 %; Eosinophils # (A) 0.2 k/uL (0-0.7); Eosinophils % (A) 2 %; HCT 21.7 % (34.0-46.0); Hypochromasia Slight; Lymphocytes % (A) 12 %; MCH 41.7 pg (25.0-35.0); MCHC 36.9 g/dL (31.0-37.0); Macrocytosis Marked; Mean Platelet Volume 10.1; Monocytes # (A) 0.5 k/uL (0-1.0); Monocytes % (A) 6 %; Neutrophils # (A) 6.4 k/uL (1.3-7.7); Neutrophils % (A) 76 %; Poikilocytosis Moderate; RBC 1.92 m/uL (3.80-5.40); RDW 23.3 % (11.5-15.5); WBC 8.5 k/uL (3.8-10.6)
[2023-03-24 22:36] LABS: Platelet Count 33 k/uL (150-450)
[2023-03-24 22:37] LABS: MCV 112.9 fL (80.0-100.0)
[2023-03-25] MEDS: MIDODRINE 5 MG TAB PO SCH ×3 (06:46→17:18)
[2023-03-25] MEDS: SODIUM CHLORIDE 0.9% 1,000 ML IV SCH ×2 (06:47→17:18)
[2023-03-25] MEDS: MAGNESIUM OXIDE 400 MG TAB PO SCH ×2 (08:52→22:15)
[2023-03-25] MEDS: levETIRAcetam 500 MG TAB PO SCH ×2 (08:52→22:15)
[2023-03-25] MEDS: FLUoxetine HCL 20 MG CAP PO SCH (08:52)
[2023-03-25] MEDS: THIAMINE 100 MG TAB PO SCH (08:52)
[2023-03-25] MEDS: PANTOPRAZOLE 40 MG TABLET PO SCH (08:52)
[2023-03-25] MEDS: FUROSEMIDE 40 MG TAB PO SCH ×2 (08:52→16:15)
[2023-03-25] MEDS: POTASSIUM CHLORIDE ER 10 MEQ TAB.ER.PRT PO SCH (08:52)
[2023-03-25] MEDS: RIFAXIMIN 550 MG TABLET PO SCH ×2 (08:53→22:15)
[2023-03-25] MEDS: SPIRONOLACTONE 25 MG TAB PO SCH (08:53)
[2023-03-25] MEDS: LACTULOSE 20 GM/30 ML CUP PO SCH ×3 (08:53→22:15)
[2023-03-25 11:11] LABS: Magnesium 1.9 mg/dL (1.5-2.4)
[2023-03-25 11:14] LABS: BUN/Creat Ratio 20.86 Ratio (12.00-20.00); Blood Urea Nitrogen 14.6 mg/dL (9.0-27.0); Calcium 8.1 mg/dL (8.7-10.3); Carbon Dioxide 25.2 mmol/L (21.6-31.8); Chloride 103 mmol/L (96-109); Glucose 91 mg/dL (70-110); Potassium 3.2 mmol/L (3.5-5.5); Sodium 139 mmol/L (135-145)
--- NOTE | 2023-03-25 11:18 | P.PN ---
Subjective Progress Note Date: 03/25/23 Principal diagnosis: Upper GI bleed 52-year-old female came to the hospital with hematemesis, history of known cirrhosis, history of prior varices. No further bleeding since hospitalization. Awaiting transfer for appropriate GI services. Last hemoglobin 8.0. Objective - Vital Signs Vital signs: Vital Signs Temp 97.4 F L 03/25/23 07:00 Pulse 73 03/25/23 07:00 Resp 16 03/25/23 07:00 BP 88/57 03/25/23 07:00 Pulse Ox 100 03/25/23 08:02 FiO2 Intake & Output 03/24/23 03/25/23 03/25/23 18:59 06:59 18:59 Intake Total 790 Output Total 700 1 Balance 90 -1 Intake: Oral 480 Blood Product 310 Rc As-1 Unit 310 [id number] Output: Urine 700 Straight 350 Stool 1 Other: Voiding Method External Catheter External Catheter External Catheter # Voids 2 - Exam Abdomen: Soft, mild distention, nontender - Labs CBC & Chem 7: 03/24/23 21:20 03/25/23 06:32 Labs: Abnormal Lab Results - Last 24 Hours (Table) 03/24/23 03/24/23 03/24/23 Range/Units 12:15 21:20 21:20 RBC 1.92 L (3.80-5.40) m/uL Hgb 8.0 L (11.4-16.0) gm/dL Hct 21.7 L (34.0-46.0) % MCV 112.9 H D (80.0-100.0) fL MCH 41.7 H (25.0-35.0) pg RDW 23.3 H (11.5-15.5) % Plt Count 33 L (150-450) k/uL Macrocytosis Marked A Potassium 3.0 L (3.5-5.1) mmol/L BUN/Creatinine Ratio (12.00-20.00) Ratio Calcium (8.7-10.3) mg/dL Crossmatch See Detail 03/25/23 Range/Units 06:32 RBC (3.80-5.40) m/uL Hgb (11.4-16.0) gm/dL Hct (34.0-46.0) % MCV (80.0-100.0) fL MCH (25.0-35.0) pg RDW (11.5-15.5) % Plt Count (150-450) k/uL Macrocytosis Potassium 3.2 L (3.5-5.1) mmol/L BUN/Creatinine Ratio 20.86 H (12.00-20.00) Ratio Calcium 8.1 L (8.7-10.3) mg/dL Crossmatch Assessment and Plan (1) Anemia Narrative/Plan: 52-year-old female with upper GI bleed. Likely related to underlying varices. Agree with plans for transfer. Ideally this patient would not a been admitted here. Current Visit: Yes Status: Acute Code(s): D64.9 - ANEMIA, UNSPECIFIED SNOMED Code(s): 394344436
[2023-03-25 11:29] LABS: Acanthocytes 2+; Anisocytosis (M) 2+; Basophils # (A) 0.02 X 10*3/uL (0.00-0.10); Basophils % (A) 0.3 %; Eosinophils # (A) 0.21 X 10*3/uL (0.04-0.35); Eosinophils % (A) 3.5 %; HCT 19.8 % (37.2-46.3); HGB 6.6 g/dL (12.0-15.0); Lymphocytes # (A) 0.97 X 10*3/uL (0.90-5.00); MCHC 33.3 g/dL (32.0-37.0); Macrocytosis (M) 3+; Mean Platelet Volume 10.7 FL (9.5-12.2); Monocytes # (A) 0.54 X 10*3/uL (0.20-1.00); Monocytes % (A) 8.9 %; NRBC Per 100 WBC 0.07 X 10*3/uL (0.00-0.01); Neutrophils # (A) 4.18 X 10*3/uL (1.80-7.70); Platelet Count 27 X 10*3/uL (140-440); Polychromasia 2+; RBC 1.65 X 10*6/uL (4.10-5.20); WBC 6.06 X 10*3/uL (4.50-10.00)
[2023-03-25] MEDS: POTASSIUM CHLORIDE ER 20 MEQ TAB.ER PO SCH ×2 (12:26→13:34)
[2023-03-25] MEDS: PHYTONADIONE ORAL 5 MG/5 ML ORAL.SYRG PO SCH (12:26)
[2023-03-25 12:37] LABS: INR 2.29 sec (0.93-1.11); Prothrombin Time 23.4 sec (9.9-11.9)
[2023-03-25] MEDS ORDERED: PHYTONADIONE ORAL 5 MG/5 ML ORAL.SYRG PO STA (14:04)
--- NOTE | 2023-03-25 14:09 | P.PN ---
Subjective 52-year-old female presents emergency department via EMS for increased lethargy, dehydration. Patient has known liver cirrhosis, liver failure in which she is followed by Dr. Oliveira and [facility]. states that there is no specific treatment at this time there just awaiting possible transplant otherwise just supportive treatment. He states that he is concerned that she is dehydrated and she was unable to keep her medications down she's been requiring frequent paracentesis. He states that her weight has been stable over the last couple days and not specifically swollen in her abdomen. She has not been able take most medications including her lactulose. He does state that she has been more weak over the last 2 weeks and is not significant acute changes tonight. He does state that she is a full code Laboratory review shows WBC of 6.8, hemoglobin 7.2 and platelet count of 29, sodium 134: Present currently BUN/creatinine of 23/1.0, ammonia level of 47 UA is unremarkable 03/24/2023 Patient admitted about 5 days ago for hepatic encephalopathy and she was placed on lactulose and rifaximin. Her mentation is improved today close to baseline and she is awake alert and interactive, she is somewhat slow to respond and mildly drowsy but she is improving. However she vomited blood today and hemoglobin dropped from baseline of 7.2 and 7-8 down to 6.0 today. She is getting vitamin K. Platelet chronically low around 30 K. She is on IV Protonix Consults surgery team who recommended transfer the patient I discussed the case with Dr. Gonzales and he accepted the patient for transfer pending displacement 03/25/2030 Patient mentation is still improving but she is still mildly confused and lethargic. She is still jaundiced. No evidence of overt GI bleed or vomiting blood anymore. She got one unit of blood transfusion yesterday and hemoglobin went up to 8.0, this morning came down again to 6.6. INR is 2.2. Therefore going to give 1 unit of blood transfusion, will give extra doses of vitamin K 5 mg on the top of 5 mg she received previously. Doesn't Protonix and switch to IV dosing. Patient is got accepted to [facility] pending placement and bed availability Objective - Vital Signs Vital signs: Vital Signs Temp 97.7 F 03/25/23 13:08 Pulse 68 03/25/23 13:08 Resp 18 03/25/23 13:08 BP 93/53 03/25/23 13:08 Pulse Ox 95 03/25/23 13:08 FiO2 Intake & Output 03/24/23 03/25/23 03/25/23 18:59 06:59 18:59 Intake Total 790 0 Output Total 700 1 Balance 90 -1 0 Intake: Oral 480 Blood Product 310 0 Unit 0 Rc As-1 Unit 310 [id number] Output: Urine 700 Straight 350 Stool 1 Other: Voiding Method External Catheter External Catheter External Catheter # Voids 2 - Exam -GENERAL: The patient is alert and oriented x1-2, not in any acute lethargic -HEENT: Pupils are round and equally reacting to light. EOMI. No scleral icterus. No conjunctival pallor. Normocephalic, atraumatic. No pharyngeal erythema. No thyromegaly. Jaundiced with the ossicular and skin CARDIOVASCULAR: S1 and S2 present. No murmurs, rubs, or gallops. PULMONARY: Chest is clear to auscultation, no wheezing , no crackles. -ABDOMEN: Soft, nontender, mildly distended, normoactive bowel sounds. No palpable organomegaly. MUSCULOSKELETAL: No joint swelling or deformity. EXTREMITIES: No cyanosis, clubbing, or pedal edema. NEUROLOGICAL: Gross neurological examination did not reveal any focal deficits. SKIN: No rashes. no petechiae. - Labs CBC & Chem 7: 03/25/23 06:32 03/25/23 06:32 Labs: Abnormal Lab Results - Last 24 Hours (Table) 03/24/23 03/24/23 03/24/23 Range/Units 12:15 21:20 21:20 RBC 1.92 L (3.80-5.40) m/uL Hgb 8.0 L (11.4-16.0) gm/dL Hct 21.7 L (34.0-46.0) % MCV 112.9 H D (80.0-100.0) fL MCH 41.7 H (25.0-35.0) pg RDW 23.3 H (11.5-15.5) % Plt Count 33 L (150-450) k/uL Immature Gran # (0.00-0.04) X 10*3/uL NRBC/100 WBC Diff (0.00-0.01) X 10*3/uL Polychromasia Anisocytosis (manual) Macrocytosis Marked A Macrocytosis (manual) Acanthocytes (Spur) PT (9.9-11.9) sec INR (0.93-1.11) sec Potassium 3.0 L (3.5-5.1) mmol/L BUN/Creatinine Ratio (12.00-20.00) Ratio Calcium (8.7-10.3) mg/dL Crossmatch See Detail 03/25/23 03/25/23 03/25/23 Range/Units 06:32 06:32 06:32 RBC 1.65 L (3.80-5.40) m/uL Hgb 6.6 A* (11.4-16.0) gm/dL Hct 19.8 A* (34.0-46.0) % MCV 120.0 H (80.0-100.0) fL MCH 40.0 H (25.0-35.0) pg RDW (11.5-15.5) % Plt Count 27 L (150-450) k/uL Immature Gran # 0.14 H (0.00-0.04) X 10*3/uL NRBC/100 WBC Diff 0.07 H (0.00-0.01) X 10*3/uL Polychromasia 2+ A Anisocytosis (manual) 2+ A Macrocytosis Macrocytosis (manual) 3+ A Acanthocytes (Spur) 2+ A PT 23.4 H (9.9-11.9) sec INR 2.29 H (0.93-1.11) sec Potassium 3.2 L (3.5-5.1) mmol/L BUN/Creatinine Ratio 20.86 H (12.00-20.00) Ratio Calcium 8.1 L (8.7-10.3) mg/dL Crossmatch Assessment and Plan Assessment: 1. Altered mental status/hepatic encephalopathy -- Patient is placed on lactulose 30 g by mouth 3 times a day; continue with home dose of rifaximin 550 mg by mouth twice a day - Patient remains on Lasix 40 mg by mouth twice a day, Aldactone 100 mg daily - We will monitor neuro checks; trend ammonia levels - Patient accepted at [facility] [place] 2. Hematemesis with blood loss anemia -320 units of blood - Monitor hemoglobin -Continue with Protonix. - patient was accepted at [facility] pending bed placement 3. Alcoholic liver disease; patient remains on thiamine and folic acid; currently awaits liver transplant 4. Depression; Prozac 40 mg daily 5. Gastroesophageal reflux disease; Protonix 40 mg daily 6. Coagulopathy; INR is elevated at 2.2; patient received vitamin K in ED DVT prophylaxis; SCDs CODE STATUS; full code
[2023-03-25] MEDS: PANTOPRAZOLE 40 MG/10 ML VIAL IVP SCH ×2 (16:15→22:15)
[2023-03-25 23:38] VITALS: RESP 16
[2023-03-26] MEDS: MIDODRINE 5 MG TAB PO SCH ×3 (05:51→18:21)
[2023-03-26 08:58] LABS: ALT 26 U/L (8-44); AST 38 U/L (13-35); Albumin/Globulin Ratio 1.43 Ratio (1.60-3.17); Alkaline Phosphatase 92 U/L (41-126); BUN/Creat Ratio 20.17 Ratio (12.00-20.00); Bilirubin, Conjugated 9.56 mg/dL (0.20-0.40); Bilirubin,Unconjugated 11.74 mg/dL (0.20-1.00); Blood Urea Nitrogen 12.1 mg/dL (9.0-27.0); Calcium 8.2 mg/dL (8.7-10.3); Carbon Dioxide 25.3 mmol/L (21.6-31.8); Chloride 104 mmol/L (96-109); Globulin 2.1 g/dL (1.6-3.3); Glucose 96 mg/dL (70-110); Potassium 3.3 mmol/L (3.5-5.5); Sodium 141 mmol/L (135-145); Total Bilirubin 21.3 mg/dL (0.3-1.2); Total Protein 5.1 g/dL (6.2-8.2)
[2023-03-26] MEDS ORDERED: Potassium Replacement Protocol 1 EACH MISC MISCELLANE PRN (09:06)
[2023-03-26] MEDS: LACTULOSE 20 GM/30 ML CUP PO SCH ×2 (09:13→18:21)
[2023-03-26] MEDS: RIFAXIMIN 550 MG TABLET PO SCH (09:14)
[2023-03-26] MEDS: FLUoxetine HCL 20 MG CAP PO SCH (09:14)
[2023-03-26] MEDS: PANTOPRAZOLE 40 MG/10 ML VIAL IVP SCH (09:14)
[2023-03-26] MEDS: THIAMINE 100 MG TAB PO SCH (09:14)
[2023-03-26] MEDS: POTASSIUM CHLORIDE ER 10 MEQ TAB.ER.PRT PO SCH (09:14)
[2023-03-26] MEDS: MAGNESIUM OXIDE 400 MG TAB PO SCH (09:14)
[2023-03-26] MEDS: SPIRONOLACTONE 25 MG TAB PO SCH (09:14)
[2023-03-26] MEDS: levETIRAcetam 500 MG TAB PO SCH (09:14)
[2023-03-26] MEDS: FUROSEMIDE 40 MG TAB PO SCH ×2 (09:14→18:20)
[2023-03-26 09:17] LABS: INR 2.37 sec (0.93-1.11); Prothrombin Time 24.2 sec (9.9-11.9)
[2023-03-26 10:17] LABS: Basophils # (A) 0.03 X 10*3/uL (0.00-0.10); Basophils % (A) 0.5 %; Eosinophils # (A) 0.18 X 10*3/uL (0.04-0.35); Eosinophils % (A) 3.1 %; HCT 22.6 % (37.2-46.3); HGB 7.6 g/dL (12.0-15.0); Immature Platelet Fraction 4.5 % (1.1-6.1); Lymphocytes # (A) 0.91 X 10*3/uL (0.90-5.00); Lymphocytes % (A) 15.7 %; MCH 37.8 pg (27.0-32.0); MCHC 33.6 g/dL (32.0-37.0); MCV 112.4 FL (80.0-97.0); Mean Platelet Volume 10.8 FL (9.5-12.2); Monocytes # (A) 0.55 X 10*3/uL (0.20-1.00); Monocytes % (A) 9.5 %; NRBC Per 100 WBC 0.05 X 10*3/uL (0.00-0.01); Neutrophils # (A) 3.97 X 10*3/uL (1.80-7.70); Neutrophils % (A) 68.6 %; Platelet Count 28 X 10*3/uL (140-440); RBC 2.01 X 10*6/uL (4.10-5.20); WBC 5.79 X 10*3/uL (4.50-10.00)
--- NOTE | 2023-03-26 11:33 | P.DS ---
Providers Date of admission: 03/23/23 01:00 Attending physician: Erasmo Constantino MD Consults: 03/24/23 10:26 Consult Physician Urgent Consulting Provider: Qamar Pavon Consult Reason/Comments: low hemoglobin Do you want consulting provider notified?: Yes Primary care physician: Kim Gutierrez DO Hospital Course: Diagnoses: 1. Altered mental status/hepatic encephalopathy -- Patient is placed on lactulose 30 g by mouth 3 times a day; continue with home dose of rifaximin 550 mg by mouth twice a day - Improved - Patient accepted at [facility] 2. Hematemesis with blood loss anemia - s/p 2 units of blood - Monitor hemoglobin -Continue with Protonix. - patient was accepted at [facility] pending bed placement 3. Alcoholic liver disease; patient remains on thiamine and folic acid; currently awaits liver transplant 4. Depression; Prozac 40 mg daily 5. Gastroesophageal reflux disease; Protonix 40 mg daily 6. Coagulopathy; INR is elevated at 2.2; patient received vitamin K in ED 7 decompensated liver cirrhosis with ascites Hospital course: 52-year-old female presents emergency department via EMS for increased lethargy, dehydration. Patient has known liver cirrhosis, liver failure in which she is followed by Dr. Oliveira and [facility]. states that there is no specific treatment at this time there just awaiting possible transplant otherwise just supportive treatment. He states that he is concerned that she is dehydrated and she was unable to keep her medications down she's been requiring frequent paracentesis. He states that her weight has been stable over the last couple days and not specifically swollen in her abdomen. She has not been able take most medications including her lactulose. Patient was admitted with hepatic encephalopathy and she was treated with lactulose and she showed interval improvement and her mentation improved currently she is awake and alert only mildly confused but follow commands and shows insight into her illness. She moves extremities equally. However he does ago her hemoglobin dropped from baseline 7-8 down to 6.0 after she vomited blood several times, she given 1 units of blood transfusion and her hemoglobin improved up to 8.0. Yesterday her hemoglobin dropped back to 6.6 and she received another unit of blood and this morning hemoglobin 7.6. She is hemodynamically stable and systolic blood pressure in the 90s. Heart rate in the 70s. Patient is afebrile. She is does not require more oxygen therapy. INR chronically elevated 2.2-2.3, she is on vitamin K 5 mg daily and Zithromax for dose yesterday. She is currently thrombocytopenic with platelet count ranging 27-33k, . No evidence of active bleeding currently but she needs close monitoring. She is mildly hypokalemic on Aldactone. Potassium and replace per protocol. Bilirubin was elevated to 31 on admission, currently at baseline around 20-21. Liver enzymes are normal or mildly elevated. Albumin 3.6, urine analysis negative for infection, alcohol level less than 10. Chest x-ray showing slight increased left pleural effusion with adjacent atelectasis. Because there is no GI coverage in this facility she's going to be transferred to high level of care, patient agrees. I discussed the case with Dr. Forman today who currently accepted the patient under his service Patient is medically stable to be transferred in guarded prognosis. Patient abdomen distended and she might require paracentesis recommended with fresh frozen plasma and vitamin K replacement Physical exam Gen: patient is a AAOx2-3, no distress CVS: S1-S2, RRR, no murmur Lungs: B/L CTA, no wheezing Abdomen: soft, distention, no tenderness, positive bowel sounds Extremity: no leg edema or induration Time spent more than 35 minutes Patient Condition at Discharge: Poor Plan - Discharge Summary New Discharge Prescriptions: No Action FLUoxetine HCL [PROzac] 40 mg PO DAILY Spironolactone [Aldactone] 100 mg PO DAILY #30 tab Pantoprazole Sodium [Protonix] 40 mg PO DAILY Magnesium Oxide [Mag-Ox] 400 mg PO BID 3 Days #6 tab Potassium Chloride ER [K-Dur 10] 10 meq PO DAILY Thiamine [Vitamin B-1] 100 mg PO DAILY Lactulose [Cephulac] 30 gm PO TID #120 ml Ubidecarenone [Coenzyme Q10] 100 mg PO DAILY Phytonadione Oral [Vitamin K Oral] 5 mg PO DAILY #15 ml levETIRAcetam [Keppra] 500 mg PO Q12HR #60 tab Midodrine [ProAmatine] 15 mg PO AC-TID 30 Days #270 tab Rifaximin [Xifaxan] 550 mg PO BID 30 Days #60 tab Furosemide [Lasix] 40 mg PO BID@0900,1600 30 Days #60 tab Discharge Medication List FLUoxetine HCL [PROzac] 40 mg PO DAILY 10/01/22 [History] Potassium Chloride ER [K-Dur 10] 10 meq PO DAILY 10/01/22 [History] Thiamine [Vitamin B-1] 100 mg PO DAILY 10/01/22 [History] Lactulose [Cephulac] 30 gm PO TID #120 ml 10/04/22 [Rx] Ubidecarenone [Coenzyme Q10] 100 mg PO DAILY 12/02/22 [History] Phytonadione Oral [Vitamin K Oral] 5 mg PO DAILY #15 ml 12/04/22 [Rx] levETIRAcetam [Keppra] 500 mg PO Q12HR #60 tab 01/05/23 [Rx] Spironolactone [Aldactone] 100 mg PO DAILY #30 tab 01/15/23 [Rx] Pantoprazole Sodium [Protonix] 40 mg PO DAILY 02/27/23 [History] Midodrine [ProAmatine] 15 mg PO AC-TID 30 Days #270 tab 03/06/23 [Rx] Rifaximin [Xifaxan] 550 mg PO BID 30 Days #60 tab 03/06/23 [Rx] Furosemide [Lasix] 40 mg PO BID@0900,1600 30 Days #60 tab 03/11/23 [Rx] Magnesium Oxide [Mag-Ox] 400 mg PO BID 3 Days #6 tab 03/11/23 [Rx] Follow up Appointment(s)/Referral(s): Kim Gutierrez DO [Primary Care Provider] - 1-2 days
[2023-03-26] MEDS: PHYTONADIONE ORAL 5 MG/5 ML ORAL.SYRG PO SCH (13:32)
[2023-03-26] MEDS: SODIUM CHLORIDE 0.9% 1,000 ML IV SCH (13:34)
[2023-03-26] MEDS ORDERED: FUROSEMIDE 10 MG/ML 4 ML VIAL IV STA (13:59)
[2023-03-26] MEDS ORDERED: SODIUM CHLORIDE 0.9% 1,000 ML IV SCH (14:00)
--- NOTE | 2023-03-26 14:49 | P.PN ---
Subjective Progress Note Date: 03/26/23 Principal diagnosis: Upper GI bleed Patient doing about the same. Mild abdominal bloating complaints. No hematemesis. Hemoglobin 7.6 after 1 unit yesterday. Objective - Vital Signs Vital signs: Vital Signs Temp 98.4 F 03/26/23 07:00 Pulse 72 03/26/23 07:00 Resp 16 03/26/23 07:00 BP 99/57 03/26/23 07:00 Pulse Ox 100 03/26/23 07:59 FiO2 Intake & Output 03/25/23 03/26/23 03/26/23 18:59 06:59 18:59 Intake Total 428 Output Total 550 500 350 Balance -122 -500 -350 Intake: Oral 118 Blood Product 310 Rc As-1 Unit 310 [id number] Output: Urine 550 500 350 Other: Voiding Method External Catheter External Catheter External Catheter # Voids 1 # Bowel Movements 2 - Exam Abdomen: Soft, mild distention, nontender - Labs CBC & Chem 7: 03/26/23 04:28 03/26/23 04:28 Labs: Abnormal Lab Results - Last 24 Hours (Table) 03/24/23 03/26/23 03/26/23 Range/Units 12:15 04:28 04:28 RBC 2.01 L (4.10-5.20) X 10*6/uL Hgb 7.6 L (12.0-15.0) g/dL Hct 22.6 L (37.2-46.3) % MCV 112.4 H (80.0-97.0) FL MCH 37.8 H (27.0-32.0) pg RDW 32.0 H (11.5-14.5) % Plt Count 28 L (140-440) X 10*3/uL Immature Gran # 0.15 H (0.00-0.04) X 10*3/uL NRBC/100 WBC Diff 0.05 H (0.00-0.01) X 10*3/uL PT 24.2 H (9.9-11.9) sec INR 2.37 H (0.93-1.11) sec Potassium (3.5-5.5) mmol/L BUN/Creatinine Ratio (12.00-20.00) Ratio Calcium (8.7-10.3) mg/dL Total Bilirubin (0.3-1.2) mg/dL Conjugated Bilirubin (0.20-0.40) mg/dL Unconjugated Bilirubin (0.20-1.00) mg/dL AST (13-35) U/L Total Protein (6.2-8.2) g/dL Albumin (3.8-4.9) g/dL Albumin/Globulin Ratio (1.60-3.17) Ratio Crossmatch See Detail 03/26/23 Range/Units 04:28 RBC (4.10-5.20) X 10*6/uL Hgb (12.0-15.0) g/dL Hct (37.2-46.3) % MCV (80.0-97.0) FL MCH (27.0-32.0) pg RDW (11.5-14.5) % Plt Count (140-440) X 10*3/uL Immature Gran # (0.00-0.04) X 10*3/uL NRBC/100 WBC Diff (0.00-0.01) X 10*3/uL PT (9.9-11.9) sec INR (0.93-1.11) sec Potassium 3.3 L (3.5-5.5) mmol/L BUN/Creatinine Ratio 20.17 H (12.00-20.00) Ratio Calcium 8.2 L (8.7-10.3) mg/dL Total Bilirubin 21.3 A* (0.3-1.2) mg/dL Conjugated Bilirubin 9.56 H (0.20-0.40) mg/dL Unconjugated Bilirubin 11.74 H (0.20-1.00) mg/dL AST 38 H (13-35) U/L Total Protein 5.1 L (6.2-8.2) g/dL Albumin 3.0 L (3.8-4.9) g/dL Albumin/Globulin Ratio 1.43 L (1.60-3.17) Ratio Crossmatch Assessment and Plan (1) Anemia Narrative/Plan: Patient doing about the same. No significant heavy bleeding. Still recommend transfer for EGD with esophageal variceal banding. Current Visit: Yes Status: Acute Code(s): D64.9 - ANEMIA, UNSPECIFIED SNOMED Code(s): 424610264
[2023-03-26 15:03] VITALS: BP 96/62; PULSE 80; TEMP 97.8
== END 2023-03-26 19:01 | disposition short-term general hospital (02) | DRG 280 ==
LOC: EC 19:37 → 6NMEDSUR 03-23 00:59 → OBSVTOIN 03-23 01:00 → 6NMEDSUR 03-23 01:22
PROVIDERS: ADMIT Internal Medicine; ATTEND Internal Medicine
PROC: 30233N1 Transfusion of Nonautologous Red Blood Cells into Peripheral Vein, Percutaneous Approach (ICD-10-PCS; principal; 2023-03-24)
DX: K76.82 Hepatic encephalopathy (principal); G40.909 Epilepsy, unspecified, not intractable, without status epilepticus; K70.9 Alcoholic liver disease, unspecified; Z20.822 Contact with and (suspected) exposure to COVID-19; D86.9 Sarcoidosis, unspecified; D62 Acute posthemorrhagic anemia; E87.1 Hypo-osmolality and hyponatremia; K21.9 Gastro-esophageal reflux disease without esophagitis; K92.0 Hematemesis; E86.0 Dehydration; D68.9 Coagulation defect, unspecified; R18.8 Other ascites; D69.6 Thrombocytopenia, unspecified; E87.6 Hypokalemia; F17.210 Nicotine dependence, cigarettes, uncomplicated; F31.9 Bipolar disorder, unspecified; F41.9 Anxiety disorder, unspecified; K74.60 Unspecified cirrhosis of liver; Z79.899 Other long term (current) drug therapy
CPT/HCPCS: 36415; 71045; 76705; 80048; 80053; 80076; 80320; 81003; 82140; 83735; 84100; 84132; 84484; 85025; 85610; 85730; 86850; 86900; 86901; 86920; 87635; 94760; 96361; 96374; 99285

== ENCOUNTER 2023-05-19 00:16 | Inpatient (IN) | payer OTHER ==
--- NOTE | 2023-05-19 00:48 | ED ---
Abdominal Pain HPI - General Chief Complaint: Abdominal Pain Stated Complaint: Abd pain Time Seen by Provider: 05/19/23 00:29 Source: patient, EMS, RN notes reviewed, old records reviewed Mode of arrival: EMS Limitations: altered mental status, physical limitation - History of Present Illness Initial Comments: This is a 52-year-old female who is unable to provide history. Patient with significant altered severely altered mental status here in the ER. Patient is unsure why she is here or how she got here. MD Complaint: abdominal pain, other (Altered mental status) -: unknown Location: diffuse Migration to: no migration Severity: severe Severity scale (1-10): 10 Consistency: constant Improves With: nothing Worsens With: nothing Associated Symptoms: nausea, vomiting Treatments Prior to Arrival: other - Related Data Home Medications Medication Instructions Recorded Confirmed Potassium Chloride ER [K-Dur 10] 10 meq PO DAILY 10/01/22 05/19/23 Thiamine [Vitamin B-1] 100 mg PO DAILY 10/01/22 05/19/23 Folic Acid 0.4 mg PO DAILY 05/19/23 05/19/23 Previous Rx's Medication Instructions Recorded Lactulose [Cephulac] 30 gm PO TID #120 ml 10/04/22 levETIRAcetam [Keppra] 500 mg PO Q12HR #60 tab 01/05/23 Spironolactone [Aldactone] 100 mg PO DAILY #30 tab 01/15/23 Midodrine [ProAmatine] 15 mg PO AC-TID 30 Days #270 tab 03/06/23 Rifaximin [Xifaxan] 550 mg PO BID 30 Days #60 tab 03/06/23 Furosemide [Lasix] 40 mg PO BID@0900,1600 30 Days #60 03/11/23 tab Allergies Allergy/AdvReac Type Severity Reaction Status Date / Time Penicillins Allergy Swelling Verified 05/19/23 09:19 tongue Sulfa (Sulfonamide Allergy Swelling Verified 05/19/23 09:19 Antibiotics) tongue walnut Allergy Anaphylaxis Verified 05/19/23 09:19 Review of Systems ROS Statement: Those systems with pertinent positive or pertinent negative responses have been documented in the HPI. ROS Other: All systems not noted in ROS Statement are negative. Past Medical History Past Medical History: Asthma, Liver Disease Additional Past Medical History / Comment(s): ascites,paracentesis 12/28/22, low platelets, previous ETOH abuse, closed head injury, seizures History of Any Multi-Drug Resistant Organisms: None Reported Past Surgical History: No Surgical Hx Reported Additional Past Surgical History / Comment(s): repair to spleen [place] Ruptured spleen in 1988 Past Anesthesia/Blood Transfusion Reactions: No Reported Reaction Additional Past Anesthesia/Blood Transfusion Reaction / Comment(s): Unsure if had blood transfusion in past Past Psychological History: Anxiety, Bipolar, Depression Smoking Status: Current every day smoker Past Alcohol Use History: None Reported Past Drug Use History: None Reported - Past Family History Sister(s) Additional Family Medical History / Comment(s): closed head injury Mother Family Medical History: Diabetes Mellitus, Hyperlipidemia General Exam Limitations: no limitations, altered mental status General appearance: alert, in no apparent distress Head exam: Present: atraumatic, normocephalic, normal inspection Eye exam: Present: normal appearance, PERRL, EOMI. Absent: scleral icterus, conjunctival injection, periorbital swelling ENT exam: Present: normal exam, mucous membranes moist Neck exam: Present: normal inspection. Absent: tenderness, meningismus, lymphadenopathy Respiratory exam: Present: normal lung sounds bilaterally. Absent: respiratory distress, wheezes, rales, rhonchi, stridor Cardiovascular Exam: Present: regular rate, normal rhythm, normal heart sounds. Absent: systolic murmur, diastolic murmur, rubs, gallop, clicks GI/Abdominal exam: Present: soft, normal bowel sounds. Absent: distended, tenderness, guarding, rebound, rigid Extremities exam: Present: normal inspection, full ROM, normal capillary refill. Absent: tenderness, pedal edema, joint swelling, calf tenderness Back exam: Present: normal inspection Neurological exam: Present: alert, oriented X3, CN II-XII intact Psychiatric exam: Present: normal affect, normal mood Skin exam: Present: warm, dry, intact, normal color. Absent: rash Course Vital Signs 05/19/23 05/19/23 05/19/23 00:18 01:40 02:11 Temperature 98.2 F Pulse Rate 124 H 105 H 112 H Pulse Rate [ Pulse Oximetery ] Respiratory 18 18 15 Rate Blood Pressure 111/62 106/69 101/63 Blood Pressure [Left Arm] O2 Sat by Pulse 96 96 100 Oximetry 05/19/23 05/19/23 05/19/23 03:58 07:42 11:29 Temperature 98.5 F Pulse Rate 119 H 114 H 115 H Pulse Rate [ Pulse Oximetery ] Respiratory 16 18 20 Rate Blood Pressure 102/57 114/73 109/80 Blood Pressure [Left Arm] O2 Sat by Pulse 100 100 97 Oximetry 05/19/23 05/19/23 12:09 14:00 Temperature 97.9 F 97.9 F Pulse Rate Pulse Rate [ 115 H 111 H Pulse Oximetery ] Respiratory 18 18 Rate Blood Pressure Blood Pressure 120/81 116/75 [Left Arm] O2 Sat by Pulse 97 99 Oximetry - Reevaluation(s) Reevaluation #1: 05/19/23 02:48 Medical records reviewed Reevaluation #2: 05/19/23 02:49 Patient has no change in symptoms Reevaluation #3: 05/19/23 02:49 Patient informed of results and questions answered Reevaluation #4: Was pt. sent in by a medical professional or institution (, PA, DOCK WORKER, urgent care, hospital, or [place] [facility] facility...) When possible be specific @ -no Did you speak to anyone other than the patient for history (EMS, parent, family, police, friend...)? What history was obtained from this source @ -no Did you review nursing and triage notes (agree or disagree)? Why? @ -agree Are old charts reviewed (outside hosp., previous admission, EMS record, old EKG, old radiological studies, urgent care reports/EKG's, [place] [facility] facility records)? Report findings @ -yes Differential Diagnosis (chest pain, altered mental status, abdominal pain women, abdominal pain men, vaginal bleeding, weakness, fever, dyspnea, syncope, headache, dizziness, GI bleed, back pain, seizure, CVA, palpatations, mental health, musculoskeletal)? @ -prior EKG interpreted by me (3pts min.). @ -no X-rays interpreted by me (1pt min.). @ -no CT interpreted by me (1pt min.). @ -no U/S interpreted by me (1pt. min.). @ -no What testing was considered but not performed or refused? (CT, X-rays, U/S, labs)? Why? @ -none What meds were considered but not given or refused? Why? @ -none Did you discuss the management of the patient with other professionals (professionals i.e. , PA, DOCK WORKER, lab, RT, psych nurse, social welfare research worker, customs verifier, t eacher, chief procurement officer, registered nurse hh case manager)? Give summary @ -no Was smoking cessation discussed for >3mins.? @ -no Was critical care preformed (if so, how long)? @ -no Were there social determinants of health that impacted care today? How? (Homelessness, low income, unemployed, alcoholism, drug addiction, transportation, low edu. Level, literacy, decrease access to med. care, custodial, rehab)? @ -none Was there de-escalation of care discussed even if they declined (Discuss DNR or withdrawal of care, Hospice)? DNR status @ -no What co-morbidities impacted this encounter? (DM, HTN, Smoking, COPD, CAD, Cancer, CVA, ARF, Chemo, Hep., AIDS, mental health diagnosis, sleep apnea, morbid obesity)? @ -none Was patient admitted / discharged? Hospital course, mention meds given and route, prescriptions, significant lab abnormalities, going to OR and other pertinent info. @ - 52 female will need to be admitted for severe altered mental status, significant ascites with abdominal pain and altered mental status Admitted Undiagnosed new problem with uncertain prognosis? @ -no Drug Therapy requiring intensive monitoring for toxicity (Heparin, Nitro, Insulin, Cardizem)? @ -no Were any procedures done? @ -no Diagnosis/symptom? @ -Ascites with abdominal pain Acute, or Chronic, or Acute on Chronic? @ -Acute Uncomplicated (without systemic symptoms) or Complicated (systemic symptoms)? @ -Complicated Side effects of treatment? @ -no Exacerbation, Progression, or Severe Exacerbation? @ -exacerbation Poses a threat to life or bodily function? How? (Chest pain, USA, PR, pneumonia, PE, COPD, DKA, ARF, appy, cholecystitis, CVA, Diverticulitis, Homicidal, Suicidal, threat to staff... and all critical care pts) @ -yes significant end-stage liver disease Reevaluation #5: 05/19/23 00:47 Differential Abdominal Pain Men: Appendicitis, cholecystitis, diverticulosis, ischemic bowel, pancreatitis, hepatitis, UTI, gastroenteritis, AAA, incarcerated hernia, bowel obstruction, constipation, inflammatory bowel, hepatitis, peptic ulcer disease, splenic infarction, perforated viscus, testicular torsion, this is not meant to be an all-inclusive list - Consultations Consultation #1: Spoke with admitting physicians who agreed to admit this patient Medical Decision Making - Medical Decision Making 52 female will need to be admitted for severe altered mental status, significant ascites with abdominal pain and altered mental status - Lab Data Result diagrams: 05/21/23 06:22 05/21/23 06:22 Lab Results 05/19/23 05/19/23 05/19/23 Range/Units 00:54 00:54 00:54 WBC 5.8 (3.8-10.6) k/uL RBC 2.08 L (3.80-5.40) m/uL Hgb 7.9 L (11.4-16.0) gm/dL Hct 23.2 L (34.0-46.0) % MCV 111.5 H (80.0-100.0) fL MCH 38.1 H (25.0-35.0) pg MCHC 34.2 (31.0-37.0) g/dL RDW 20.8 H (11.5-15.5) % Plt Count 31 L (150-450) k/uL MPV 7.7 Neutrophils % 78 % Lymphocytes % 10 % Monocytes % 9 % Eosinophils % 2 % Basophils % 0 % Neutrophils # 4.5 (1.3-7.7) k/uL Lymphocytes # 0.6 L (1.0-4.8) k/uL Monocytes # 0.5 (0-1.0) k/uL Eosinophils # 0.1 (0-0.7) k/uL Basophils # 0.0 (0-0.2) k/uL Manual Slide Review Performed Poikilocytosis (manual Present Anisocytosis Moderate Macrocytosis Marked A Fragmented RBCs Present PT 26.3 H (10.0-12.5) sec INR 2.7 H (<1.2) APTT 34.4 H (22.0-30.0) sec Sodium 128 L (137-145) mmol/L Potassium 4.1 (3.5-5.1) mmol/L Chloride 98 (98-107) mmol/L Carbon Dioxide 24 (22-30) mmol/L Anion Gap 6 mmol/L BUN 19 H (7-17) mg/dL Creatinine 0.65 (0.52-1.04) mg/dL Est GFR (CKD-EPI)AfAm >90 (>60 ml/min/1.73 sqM) Est GFR (CKD-EPI)NonAf >90 (>60 ml/min/1.73 sqM) Glucose 144 H (74-99) mg/dL Plasma Lactic Acid Heladio (0.7-2.0) mmol/L Calcium 8.1 L (8.4-10.2) mg/dL Phosphorus 3.8 (2.5-4.5) mg/dL Magnesium 1.7 (1.6-2.3) mg/dL Total Bilirubin 14.5 H (0.2-1.3) mg/dL AST 50 H (14-36) U/L ALT 40 H (4-34) U/L Alkaline Phosphatase 126 (38-126) U/L Ammonia (<30) umol/L Total Protein 6.6 (6.3-8.2) g/dL Albumin 2.7 L (3.5-5.0) g/dL Amylase 90 (30-110) U/L Lipase 348 H (23-300) U/L 05/19/23 Range/Units 00:54 WBC (3.8-10.6) k/uL RBC (3.80-5.40) m/uL Hgb (11.4-16.0) gm/dL Hct (34.0-46.0) % MCV (80.0-100.0) fL MCH (25.0-35.0) pg MCHC (31.0-37.0) g/dL RDW (11.5-15.5) % Plt Count (150-450) k/uL MPV Neutrophils % % Lymphocytes % % Monocytes % % Eosinophils % % Basophils % % Neutrophils # (1.3-7.7) k/uL Lymphocytes # (1.0-4.8) k/uL Monocytes # (0-1.0) k/uL Eosinophils # (0-0.7) k/uL Basophils # (0-0.2) k/uL Manual Slide Review Poikilocytosis (manual Anisocytosis Macrocytosis Fragmented RBCs PT (10.0-12.5) sec INR (<1.2) APTT (22.0-30.0) sec Sodium (137-145) mmol/L Potassium (3.5-5.1) mmol/L Chloride (98-107) mmol/L Carbon Dioxide (22-30) mmol/L Anion Gap mmol/L BUN (7-17) mg/dL Creatinine (0.52-1.04) mg/dL Est GFR (CKD-EPI)AfAm (>60 ml/min/1.73 sqM) Est GFR (CKD-EPI)NonAf (>60 ml/min/1.73 sqM) Glucose (74-99) mg/dL Plasma Lactic Acid Heladio 1.6 (0.7-2.0) mmol/L Calcium (8.4-10.2) mg/dL Phosphorus (2.5-4.5) mg/dL Magnesium (1.6-2.3) mg/dL Total Bilirubin (0.2-1.3) mg/dL AST (14-36) U/L ALT (4-34) U/L Alkaline Phosphatase (38-126) U/L Ammonia 54 H (<30) umol/L Total Protein (6.3-8.2) g/dL Albumin (3.5-5.0) g/dL Amylase (30-110) U/L Lipase (23-300) U/L Disposition Clinical Impression: Ascites, Cirrhosis of liver, Hepatic encephalopathy, Coagulopathy, Encephalopathy, Jaundice, Dehydration, Abdominal pain Disposition: ADMITTED IP TO THIS HOSP Condition: Good Is patient prescribed a controlled substance at d/c from ED?: No Time of Disposition: 02:35
[2023-05-19 01:06] LABS: Lactic Acid, Venous 1.6 mmol/L (0.7-2.0)
[2023-05-19 01:07] LABS: Potassium 4.1 mmol/L (3.5-5.1)
[2023-05-19 01:08] LABS: ALT 40 U/L (4-34); AST 50 U/L (14-36); African American GFR (CKD) >90 (>60 ml/min/1.73 sqM); Albumin 2.7 g/dL (3.5-5.0); Alkaline Phosphatase 126 U/L (38-126); Amylase 90 U/L (30-110); Anion Gap 6 mmol/L; Blood Urea Nitrogen 19 mg/dL (7-17); Calcium 8.1 mg/dL (8.4-10.2); Carbon Dioxide 24 mmol/L (22-30); Chloride 98 mmol/L (98-107); Glucose 144 mg/dL (74-99); Lipase 348 U/L (23-300); Magnesium 1.7 mg/dL (1.6-2.3); Non-African American GFR(CKD) >90 (>60 ml/min/1.73 sqM); Phosphorus 3.8 mg/dL (2.5-4.5); Sodium 128 mmol/L (137-145); Total Bilirubin 14.5 mg/dL (0.2-1.3); Total Protein 6.6 g/dL (6.3-8.2)
[2023-05-19 01:15] LABS: Anisocytosis Moderate; Basophils % (A) 0 %; Eosinophils # (A) 0.1 k/uL (0-0.7); Eosinophils % (A) 2 %; HCT 23.2 % (34.0-46.0); HGB 7.9 gm/dL (11.4-16.0); Lymphocytes # (A) 0.6 k/uL (1.0-4.8); Lymphocytes % (A) 10 %; MCH 38.1 pg (25.0-35.0); MCHC 34.2 g/dL (31.0-37.0); MCV 111.5 fL (80.0-100.0); Macrocytosis Marked; Mean Platelet Volume 7.7; Monocytes # (A) 0.5 k/uL (0-1.0); Monocytes % (A) 9 %; Neutrophils # (A) 4.5 k/uL (1.3-7.7); Neutrophils % (A) 78 %; RBC 2.08 m/uL (3.80-5.40); RDW 20.8 % (11.5-15.5); WBC 5.8 k/uL (3.8-10.6)
[2023-05-19 01:32] LABS: INR 2.7 (<1.2); Partial Thromboplastin Time 34.4 sec (22.0-30.0); Prothrombin Time 26.3 sec (10.0-12.5)
[2023-05-19 03:21] LABS: Poikilocytosis (M) Present; RBC Fragments Present
[2023-05-19 03:24] LABS: Platelet Count 31 k/uL (150-450)
[2023-05-19] MEDS ORDERED: ONDANSETRON 4 MG/2 ML VIAL IVP PRN (03:34)
[2023-05-19] MEDS ORDERED: MORPHINE SULFATE 4 MG/ML SYRINGE IV PRN (03:34)
[2023-05-19] MEDS ORDERED: LORazepam 2 MG/ML INJ IV PRN ×3 (03:34)
[2023-05-19] MEDS ORDERED: NALOXONE 0.4 MG/ML 1 ML VIAL IV PRN (03:34)
[2023-05-19] MEDS: DEXTROSE 5%-0.45% NACL 1,000 ML IV SCH (04:42)
[2023-05-19] MEDS: THIAMINE 100 MG/ML 2 ML VIAL IM STA (04:46)
[2023-05-19] MEDS: LACTULOSE 20 GM/30 ML CUP PO ONE (04:46)
[2023-05-19] MEDS: LACTULOSE 20 GM/30 ML CUP PO SCH (09:01)
--- NOTE | 2023-05-19 14:29 | P.HPIM ---
History of Present Illness H&P Date: 05/19/23 Patient is a 52-year-old female with history of alcoholic cirrhosis presenting from home with worsening abdominal distention. Patient is a poor historian. Denies any abdominal pain, nausea, vomiting, urinary or bowel complaints. Denies any chest pain or shortness of breath. Smokes half a pack per day. Denies any current alcohol use. In the ED, temperature was 98.2, pulse 124, respiratory rate 18, blood pressure 111/62, saturating at 96% on room air. WBC 5.8, hemoglobin 7.9, platelet 31, I NR 2.7, sodium 128, creatinine 0.65, total bili 14.5, AST 50, ALT 40, lipase 348. Patient was not signed out to the admitting team. She was started on IV Ativan as needed per CIWA score. IR was consulted for paracentesis. Patient being admitted for acute encephalopathy and decompensated liver cirrhosis. Pertinent positives and negatives as discussed in HPI, a complete review of systems was performed and all other systems are negative. Patient seen and examined at bedside. Vital signs reviewed General: nontoxic, no distress, appears at stated age Derm: warm, dry, jaundice Head: atraumatic, normocephalic, symmetric Eyes: EOMI, no lid lag, scleral icterus, pupils equal round reactive to light ENT: Nose and ears atraumatic Neck: No thyromegaly, supple Mouth: no lip lesion, mucus membranes moist Cardiovascular: S1S2 reg, no murmur, no edema Lungs: clear to auscultation bilateral, no rhonchi, no rales, no wheeze, no accessory muscle use Abdominal: soft, distended, nontender to palpation, positive fluid wave Ext: Significant gross muscle atrophy, muscle strength muscle strength 5 out of 5 in all 4 extremities, no contractures Neuro: CN II-XII grossly intact Psych: Alert, oriented to, appropriate affect Assessment/Plan: Acute encephalopathy, likely hepatic Decompensated liver cirrhosis Sinus tachycardia Seizure disorder? -Continue home rifaximin 500 twice daily, also started on lactulose 30 g twice daily, titrate to 2-3 bowel movements per day -Continue Lasix 40 daily, spironolactone 100 mg daily -Paracentesis ordered, blood cultures, cell count, body fluid cultures, total protein, LDH ordered -MELD score 31, 27 to 32% 90-day mortality -Continue Keppra -Patient claims that she does not drink alcohol anymore -On thiamine oral as well as Ativan as needed per CIWA score, monitor for sedation -Ammonia level pending, repeat CBC and CMP tomorrow The patient is admitted with an anticipated greater than 2 midnight stay as inpatient status for evaluation of acute encephalopathy. Surrogate decision-maker: Mother CODE STATUS: Full code DVT prophylaxis: Not indicated Anticipated discharge date: Pending clinical course Anticipated discharge place: Pending clinical course A total of 55 minutes was spent on the care of this complex patient more than 50% of the time was spent in counseling and care coordination. Past Medical History Past Medical History: Asthma, Liver Disease Additional Past Medical History / Comment(s): ascites,paracentesis 12/28/22, low platelets, previous ETOH abuse, closed head injury, seizures History of Any Multi-Drug Resistant Organisms: None Reported Past Surgical History: No Surgical Hx Reported Additional Past Surgical History / Comment(s): repair to spleen [place] Ruptured spleen in 1988 Past Anesthesia/Blood Transfusion Reactions: No Reported Reaction Additional Past Anesthesia/Blood Transfusion Reaction / Comment(s): Unsure if had blood transfusion in past Past Psychological History: Anxiety, Bipolar, Depression Smoking Status: Current every day smoker Past Alcohol Use History: None Reported Past Drug Use History: None Reported - Past Family History Sister(s) Additional Family Medical History / Comment(s): closed head injury Mother Family Medical History: Diabetes Mellitus, Hyperlipidemia Medications and Allergies Home Medications Medication Instructions Recorded Confirmed Type Potassium Chloride ER [K-Dur 10] 10 meq PO DAILY 10/01/22 05/19/23 History Thiamine [Vitamin B-1] 100 mg PO DAILY 10/01/22 05/19/23 History Lactulose [Cephulac] 30 gm PO TID #120 ml 10/04/22 05/19/23 Rx levETIRAcetam [Keppra] 500 mg PO Q12HR #60 tab 01/05/23 05/19/23 Rx Spironolactone [Aldactone] 100 mg PO DAILY #30 tab 01/15/23 05/19/23 Rx Midodrine [ProAmatine] 15 mg PO AC-TID 30 Days #270 tab 03/06/23 05/19/23 Rx Rifaximin [Xifaxan] 550 mg PO BID 30 Days #60 tab 03/06/23 05/19/23 Rx Furosemide [Lasix] 40 mg PO BID@0900,1600 30 Days #60 03/11/23 05/19/23 Rx tab Folic Acid 0.4 mg PO DAILY 05/19/23 05/19/23 History Allergies Allergy/AdvReac Type Severity Reaction Status Date / Time Penicillins Allergy Swelling Verified 05/19/23 09:19 tongue Sulfa (Sulfonamide Allergy Swelling Verified 05/19/23 09:19 Antibiotics) tongue walnut Allergy Anaphylaxis Verified 05/19/23 09:19 Physical Exam Vitals: Vital Signs Temp Pulse Pulse Resp BP BP Pulse Ox 05/19/23 14:00 97.9 F 111 H 18 116/75 99 05/19/23 12:09 97.9 F 115 H 18 120/81 97 05/19/23 11:29 115 H 20 109/80 97 05/19/23 07:42 98.5 F 114 H 18 114/73 100 05/19/23 03:58 119 H 16 102/57 100 05/19/23 02:11 112 H 15 101/63 100 05/19/23 01:40 105 H 18 106/69 96 05/19/23 00:18 98.2 F 124 H 18 111/62 96 Intake and Output 05/18/23 05/19/23 05/19/23 22:59 06:59 14:59 Other: Weight 77.8 kg Results CBC & Chem 7: 05/19/23 00:54 05/19/23 00:54 Labs: Abnormal Lab Results - Last 24 Hours (Table) 05/19/23 05/19/23 05/19/23 Range/Units 00:54 00:54 00:54 RBC 2.08 L (3.80-5.40) m/uL Hgb 7.9 L (11.4-16.0) gm/dL Hct 23.2 L (34.0-46.0) % MCV 111.5 H (80.0-100.0) fL MCH 38.1 H (25.0-35.0) pg RDW 20.8 H (11.5-15.5) % Plt Count 31 L (150-450) k/uL Lymphocytes # 0.6 L (1.0-4.8) k/uL Macrocytosis Marked A PT 26.3 H (10.0-12.5) sec INR 2.7 H (<1.2) APTT 34.4 H (22.0-30.0) sec Sodium 128 L (137-145) mmol/L BUN 19 H (7-17) mg/dL Glucose 144 H (74-99) mg/dL Calcium 8.1 L (8.4-10.2) mg/dL Total Bilirubin 14.5 H (0.2-1.3) mg/dL AST 50 H (14-36) U/L ALT 40 H (4-34) U/L Ammonia (<30) umol/L Albumin 2.7 L (3.5-5.0) g/dL Lipase 348 H (23-300) U/L 05/19/23 Range/Units 00:54 RBC (3.80-5.40) m/uL Hgb (11.4-16.0) gm/dL Hct (34.0-46.0) % MCV (80.0-100.0) fL MCH (25.0-35.0) pg RDW (11.5-15.5) % Plt Count (150-450) k/uL Lymphocytes # (1.0-4.8) k/uL Macrocytosis PT (10.0-12.5) sec INR (<1.2) APTT (22.0-30.0) sec Sodium (137-145) mmol/L BUN (7-17) mg/dL Glucose (74-99) mg/dL Calcium (8.4-10.2) mg/dL Total Bilirubin (0.2-1.3) mg/dL AST (14-36) U/L ALT (4-34) U/L Ammonia 54 H (<30) umol/L Albumin (3.5-5.0) g/dL Lipase (23-300) U/L
[2023-05-19] MEDS: MIDODRINE 5 MG TAB PO SCH (16:59)
[2023-05-19] MEDS: levETIRAcetam 500 MG TAB PO SCH (20:35)
[2023-05-19] MEDS: RIFAXIMIN 550 MG TABLET PO SCH (20:35)
[2023-05-20] MEDS ORDERED: THIAMINE 100 MG TAB PO SCH (09:00)
[2023-05-20] MEDS: SPIRONOLACTONE 25 MG TAB PO SCH (09:30)
[2023-05-20] MEDS: FOLIC ACID 1 MG TAB PO SCH (09:31)
[2023-05-20] MEDS: THIAMINE 100 MG TAB PO SCH (09:31)
[2023-05-20] MEDS: FUROSEMIDE 40 MG TAB PO SCH (09:31)
[2023-05-20 11:16] LABS: Magnesium 1.7 mg/dL (1.5-2.4); Phosphorus 3.1 mg/dL (2.4-5.1)
--- NOTE | 2023-05-20 11:31 | P.PN ---
Subjective Progress Note Date: 05/20/23 Hospital Course: 52-year-old female with history of alcoholic cirrhosis presenting from home with worsening abdominal distention. In the ED, temperature was 98.2, pulse 124, respiratory rate 18, blood pressure 111/62, saturating at 96% on room air. WBC 5.8, hemoglobin 7.9, platelet 31, INR 2.7, sodium 128, creatinine 0.65, total bili 14.5, AST 50, ALT 40, lipase 348. Patient was not signed out to the admitting team. She was started on IV Ativan as needed per CIWA score. IR was consulted for paracentesis. Patient being admitted for acute encephalopathy and decompensated liver cirrhosis needing paracentesis. Subjective: Patient seen and examined at bedside. No acute events overnight. Denies any new complaints. Pertinent positives and negatives as discussed above, a complete review of s ystems was performed and all other systems are negative. Vitals Signs Reviewed. General: nontoxic, no distress, appears older than stated age, chronically ill- appearing Derm: warm, dry, jaundice Head: atraumatic, normocephalic, symmetric Eyes: EOMI, no lid lag, scleral icterus, pupils equal round reactive to light ENT: Nose and ears atraumatic Neck: No thyromegaly, supple Mouth: no lip lesion, mucus membranes moist Cardiovascular: S1S2 reg, no murmur, no edema Lungs: clear to auscultation bilateral, no rhonchi, no rales, no wheeze, no accessory muscle use Abdominal: soft, distended, nontender to palpation, positive fluid wave Ext: Significant gross muscle atrophy, muscle strength muscle strength 5 out of 5 in all 4 extremities, no contractures Neuro: CN II-XII grossly intact Psych: Alert, oriented x 2, appropriate affect Data Reviewed Today: Pertinent Labs: Magnesium 1.7, Phos 3.1, CBC and CMP pending, will be reviewed when available ammonia level down trended to 9 Imaging: No new imaging Assessment and Plan: Acute encephalopathy, likely hepatic Decompensated liver cirrhosis Sinus tachycardia Seizure disorder? Macrocytic anemia, thrombocytopenia Elevated INR -Continue home rifaximin 500 twice daily, also started on lactulose 30 g twice daily, titrate to 2-3 bowel movements per day, ammonia levels have down trended, likely at baseline mental status -Continue Lasix 40 daily, spironolactone 100 mg daily -Continue midodrine 15 AC 3 times daily -Paracentesis pending, blood cultures, cell count, body fluid cultures, total protein, LDH ordered -MELD score 31, 27 to 32% 90-day mortality -Continue Aldo -Patient claims that she does not drink alcohol anymore -On thiamine -Anemia, thrombocytopenia likely in the setting of decompensated liver cirrhosis, no active bleeding -Patient to receive FFP and platelets prior to paracentesis, may need albumin if large-volume paracentesis DVT ppx: Not indicated Code status: Full code Anticipated discharge place: Pending clinical course Anticipated discharge time: Pending clinical course Objective - Vital Signs Vital signs: Vital Signs Temp 98.0 F 05/20/23 10:28 Pulse 109 H 05/20/23 10:28 Resp 20 05/20/23 10:28 BP 98/65 05/20/23 10:28 Pulse Ox 97 05/20/23 10:28 FiO2 Intake & Output 05/19/23 05/20/23 05/20/23 18:59 06:59 18:59 Intake Total 0 Output Total 200 400 Balance -200 -400 0 Weight 77.8 kg Intake: Blood Product 0 Ffp 24 Cpd Unit 0 [id number] Output: Urine 200 400 Other: Voiding Method External Catheter External Catheter # Voids 2 # Bowel Movements 1 1 - Labs CBC & Chem 7: 05/19/23 00:54 05/19/23 00:54
[2023-05-20 11:47] LABS: ALT 40 U/L (8-44); AST 46 U/L (13-35); Albumin/Globulin Ratio 1.15 Ratio (1.60-3.17); Alkaline Phosphatase 93 U/L (41-126); BUN/Creat Ratio 22.67 Ratio (12.00-20.00); Blood Urea Nitrogen 13.6 mg/dL (9.0-27.0); Calcium 8.7 mg/dL (8.7-10.3); Carbon Dioxide 24.1 mmol/L (21.6-31.8); Chloride 96 mmol/L (96-109); Globulin 2.6 g/dL (1.6-3.3); Glucose 96 mg/dL (70-110); Potassium 4.2 mmol/L (3.5-5.5); Sodium 129 mmol/L (135-145); Total Bilirubin 17.2 mg/dL (0.3-1.2); Total Protein 5.6 g/dL (6.2-8.2)
[2023-05-20 15:22] LABS: Acanthocytes 2+; Anisocytosis (M) 2+; Basophils # (A) 0.04 X 10*3/uL (0.00-0.10); Basophils % (A) 0.7 %; Eosinophils # (A) 0.13 X 10*3/uL (0.04-0.35); Eosinophils % (A) 2.4 %; HCT 21.8 % (37.2-46.3); HGB 7.4 g/dL (12.0-15.0); Immature Platelet Fraction 2.8 % (1.1-6.1); Lymphocytes # (A) 0.54 X 10*3/uL (0.90-5.00); MCH 38.1 pg (27.0-32.0); MCHC 33.9 g/dL (32.0-37.0); MCV 112.4 FL (80.0-97.0); Macrocytosis (M) 2+; Monocytes # (A) 0.48 X 10*3/uL (0.20-1.00); Monocytes % (A) 8.9 %; NRBC Per 100 WBC 0 X 10*3/uL (0.00-0.01); Neutrophils # (A) 4.16 X 10*3/uL (1.80-7.70); Neutrophils % (A) 77.1 %; Platelet Count 32 X 10*3/uL (140-440); RBC 1.94 X 10*6/uL (4.10-5.20); RDW 22.4 % (11.5-14.5)
--- NOTE | 2023-05-20 16:01 | US ---
Ultrasound-guided paracentesis. DATE OF EXAM: 05/20/2023 CLINICAL HISTORY: Ascites The procedure was discussed with the patient. The risks, complications, benefits, and alternatives we re discussed and any questions were answered. Informed consent was obtained. The patient was placed s upine on the ultrasound table and prepped and draped in the usual sterile fashion. All elements of maximal barrier technique were utilized. Under ultrasound guidance, access into the right lower quadrant was obtained, via the paracentesis catheter system and direct ultrasound guidanc e. Approximately 9 liters of straw-colored fluid was removed. The patient was stable throughout the proc edure and remained stable upon discharge from Department of Radiology. IMPRESSION: Successful paracentesis under ultrasound guidance.
[2023-05-20] MEDS: ALBUMIN HUMAN 25% 50 ML in EMPTY BAG 1 BAG IVPB SCH (16:12)
[2023-05-21 04:01] LABS: Appearance,BF Clear (Clear)
[2023-05-21 04:31] LABS: Glucose, BF Source Ascities; Glucose, Body Fluid 125 mg/dL; LDH, Body Fluid Source Ascities; T. Protein, Body Fluid Source Ascities; Total Protein, Body Fluid 844 mg/dL
[2023-05-21 07:03] LABS: Anisocytosis Moderate; Basophils % (A) 0 %; Eosinophils # (A) 0.1 k/uL (0-0.7); Eosinophils % (A) 2 %; HCT 22.3 % (34.0-46.0); HGB 7.9 gm/dL (11.4-16.0); Lymphocytes # (A) 0.5 k/uL (1.0-4.8); Lymphocytes % (A) 14 %; MCH 39.5 pg (25.0-35.0); MCHC 35.2 g/dL (31.0-37.0); MCV 112.1 fL (80.0-100.0); Macrocytosis Marked; Mean Platelet Volume 8.7; Monocytes # (A) 0.4 k/uL (0-1.0); Monocytes % (A) 11 %; Neutrophils # (A) 2.6 k/uL (1.3-7.7); Neutrophils % (A) 69 %; Platelet Count 30 k/uL (150-450); Poikilocytosis Slight; RBC 1.99 m/uL (3.80-5.40); RDW 20.2 % (11.5-15.5); WBC 3.8 k/uL (3.8-10.6)
[2023-05-21 07:16] LABS: Anisocytosis (M) Present; Eosinophils # (M) 0.04 k/uL (0-0.7); Lymphocytes # (M) 0.46 k/uL (1.0-4.8); Monocytes # (M) 0.19 k/uL (0-1.0); Neutrophils # (M) 3.12 k/uL (1.3-7.7); Neutrophils % (M) 82 %; Nucleated Red Blood Cells 0 /100 WBC (0-0); Poikilocytosis (M) Present; Total Cells Counted 100
[2023-05-21 07:29] LABS: ALT 37 U/L (4-34); AST 49 U/L (14-36); African American GFR (CKD) >90 (>60 ml/min/1.73 sqM); Albumin 3.1 g/dL (3.5-5.0); Albumin/Globulin Ratio 0.9; Alkaline Phosphatase 89 U/L (38-126); Anion Gap 8 mmol/L; Blood Urea Nitrogen 13 mg/dL (7-17); Calcium 8.8 mg/dL (8.4-10.2); Carbon Dioxide 24 mmol/L (22-30); Chloride 101 mmol/L (98-107); Globulin 3.4 g/dL; Glucose 94 mg/dL (74-99); Magnesium 1.5 mg/dL (1.6-2.3); Non-African American GFR(CKD) >90 (>60 ml/min/1.73 sqM); Potassium 3.5 mmol/L (3.5-5.1); Sodium 133 mmol/L (137-145); Total Protein 6.5 g/dL (6.3-8.2)
[2023-05-21 12:43] VITALS: BP 93/60; PULSE 106; RESP 15; TEMP 98.2
[2023-05-21 14:21] LABS: INR 2.4 (<1.2); Prothrombin Time 24.2 sec (10.0-12.5)
--- NOTE | 2023-05-21 16:56 | P.DS ---
Providers Date of admission: 05/19/23 03:36 Expected date of discharge: 05/21/23 Attending physician: Lit Yao MD Primary care physician: Kim Gutierrez DO Hospital Course: Acute metabolic encephalopathy, likely hepatic Decompensated liver cirrhosis Sinus tachycardia Seizure disorder? Macrocytic anemia, thrombocytopenia Elevated INR Hospital Course: 52-year-old female with history of alcoholic cirrhosis presenting from home with worsening abdominal distention. In the ED, temperature was 98.2, pulse 124, respiratory rate 18, blood pressure 111/62, saturating at 96% on room air. WBC 5.8, hemoglobin 7.9, platelet 31, INR 2.7, sodium 128, creatinine 0.65, total bili 14.5, AST 50, ALT 40, lipase 348. Patient was not signed out to the admitting team. She was started on IV Ativan as needed per CIWA score. IR was consulted for paracentesis. Patient being admitted for acute encephalopathy and decompensated liver cirrhosis needing paracentesis. Pt underwent large volume paracentesis which was negative for concerns of SBP. She rec'd 100g of albumin following procedure. Pts encephalopathy improved with rifaximin and lactulose. She was discharged home with GI f/u. Instructed to continue ETOH cessation and congratulated on her cessation to date, and advised to seek hepatology referral from her GI physician in order to be worked up for Liver transplantation. I spent 32 minutes coordinating this discharge on 05/21 Gen: In NAD, non-toxic HEENT: normocephalic, atraumatic, hearing acuity is intant, mucous membranes moist, , scleral icterus CVS: perfusing all extremities well, no pitting edema, Respiratory: symmetric chest expansion, no accessory muscle use, GI: soft, NTTP, ND, : no suprapubic tenderness, no CVA tenderness MSK/Derm: no rashes, cyanosis, diffuse jaundice Neuro: CN II-XII intact, no motor weakness, Psych: cooperative, euthymic mood, judgment and insight is intact Patient Condition at Discharge: Good Plan - Discharge Summary Discharge Rx Participant: No New Discharge Prescriptions: Continue Spironolactone [Aldactone] 100 mg PO DAILY #30 tab Potassium Chloride ER [K-Dur 10] 10 meq PO DAILY Thiamine [Vitamin B-1] 100 mg PO DAILY Lactulose [Cephulac] 30 gm PO TID #120 ml levETIRAcetam [Keppra] 500 mg PO Q12HR #60 tab Midodrine [ProAmatine] 15 mg PO AC-TID 30 Days #270 tab Rifaximin [Xifaxan] 550 mg PO BID 30 Days #60 tab Furosemide [Lasix] 40 mg PO BID@0900,1600 30 Days #60 tab Folic Acid 0.4 mg PO DAILY Discharge Medication List Potassium Chloride ER [K-Dur 10] 10 meq PO DAILY 10/01/22 [History] Thiamine [Vitamin B-1] 100 mg PO DAILY 10/01/22 [History] Lactulose [Cephulac] 30 gm PO TID #120 ml 10/04/22 [Rx] levETIRAcetam [Keppra] 500 mg PO Q12HR #60 tab 01/05/23 [Rx] Spironolactone [Aldactone] 100 mg PO DAILY #30 tab 01/15/23 [Rx] Midodrine [ProAmatine] 15 mg PO AC-TID 30 Days #270 tab 03/06/23 [Rx] Rifaximin [Xifaxan] 550 mg PO BID 30 Days #60 tab 03/06/23 [Rx] Furosemide [Lasix] 40 mg PO BID@0900,1600 30 Days #60 tab 03/11/23 [Rx] Folic Acid 0.4 mg PO DAILY 05/19/23 [History] Follow up Appointment(s)/Referral(s): Nursing,[place] [NON-STAFF] - 1 Week Juliana Alcantar MD [STAFF PHYSICIAN] - 1 Week (please call the office to schedule a follow up appointment for the paracentesis and liver history. ) Kim Gutierrez DO [Primary Care Provider] - 1-2 days (Office was unable to schedule an appointment, please call the office to schedule a follow up appointment/new patient appointment.) Patient Instructions/Handouts: Ascites (DC) Activity/Diet/Wound Care/Special Instructions: DIET TOLERATED ACITITY lIMITED UNTIL SEEN BY DR. Guerrero Disposition: HOME SELF-CARE
== END 2023-05-21 17:56 | disposition home or self-care (01) | DRG 280 ==
LOC: EC 00:16 → 5NMEDONC 03:36
PROVIDERS: ADMIT Student in an Organized Health Care Education/Training Program; ATTEND Student in an Organized Health Care Education/Training Program
PROC: HZ2ZZZZ Detoxification Services for Substance Abuse Treatment (ICD-10-PCS; principal; 2023-05-20)
PROC: 0W9G3ZZ Drainage of Peritoneal Cavity, Percutaneous Approach (ICD-10-PCS; 2023-05-20)
DX: K70.31 Alcoholic cirrhosis of liver with ascites (principal); K76.82 Hepatic encephalopathy; F41.9 Anxiety disorder, unspecified; F17.210 Nicotine dependence, cigarettes, uncomplicated; D68.9 Coagulation defect, unspecified; D69.59 Other secondary thrombocytopenia; F31.9 Bipolar disorder, unspecified; D53.9 Nutritional anemia, unspecified; E86.0 Dehydration; Z79.899 Other long term (current) drug therapy; J45.909 Unspecified asthma, uncomplicated; Z88.0 Allergy status to penicillin; Z88.2 Allergy status to sulfonamides; Z91.018 Allergy to other foods; Z87.820 Personal history of traumatic brain injury
CPT/HCPCS: 36415; 49083; 80053; 82140; 82150; 82945; 83605; 83615; 83690; 83735; 84100; 84157; 85025; 85610; 85730; 86850; 86900; 86901; 87040; 87070; 87075; 87205; 89050

== ENCOUNTER 2023-06-18 14:34 | Inpatient (IN) | payer OTHER ==
[2023-06-18] MEDS: SODIUM CHLORIDE 0.9% 1,000 ML IV SCH (15:24)
[2023-06-18 15:38] LABS: Glucose,Whole Blood 112 mg/dL (70-110)
[2023-06-18 15:38] LABS: Anisocytosis Slight; Hypochromasia Moderate; MCHC 34.2 g/dL (31.0-37.0); MCV 134.6 fL (80.0-100.0); Macrocytosis Marked; Mean Platelet Volume 9.8; Platelet Count 38 k/uL (150-450); Poikilocytosis Marked; RBC 1.46 m/uL (3.80-5.40); RDW 19.7 % (11.5-15.5)
--- NOTE | 2023-06-18 15:40 | ED ---
Altered Mental Status HPI - General Chief Complaint: Altered Mental Status Stated Complaint: hypotension Time Seen by Provider: 06/18/23 14:40 Source: EMS Mode of arrival: EMS - History of Present Illness Initial Comments: 52-year-old female with past medical history of end-stage liver failure who presents emergency department with altered mental status. History is obtained from and father. Patient has had declining status for the past several weeks. Today the patient was so obtunded that they could not wake her up to take her medications in applesauce. Patient's blood pressure was markedly low at home. She is supposed to take midodrine however has been unable to take any doses today due to her unresponsive state. Patient unable to provide any hi story. She was recently hospitalized at [facility] and went to rehab. They did meet with hospice care however were not ready to sign on yet. They deny that the patient had any injuries. No fevers. HPI is limited - Related Data Home Medications Medication Instructions Recorded Confirmed Potassium Chloride ER [K-Dur 10] 10 meq PO DAILY 10/01/22 06/18/23 Thiamine [Vitamin B-1] 100 mg PO DAILY 10/01/22 06/18/23 Pantoprazole [Protonix] 40 mg PO DAILY 06/18/23 06/18/23 [id number]-[id number] Acid 1 cap PO DAILY 06/18/23 06/18/23 [-U Capsule (formulary)] Previous Rx's Medication Instructions Recorded levETIRAcetam [Keppra] 500 mg PO Q12HR #60 tab 01/05/23 Spironolactone [Aldactone] 100 mg PO DAILY #30 tab 01/15/23 Midodrine [ProAmatine] 15 mg PO AC-TID 30 Days #270 tab 03/06/23 Rifaximin [Xifaxan] 550 mg PO BID 30 Days #60 tab 03/06/23 Furosemide [Lasix] 40 mg PO BID@0900,1600 30 Days #60 03/11/23 tab Allergies Allergy/AdvReac Type Severity Reaction Status Date / Time Penicillins Allergy Swelling Verified 06/18/23 15:53 tongue Sulfa (Sulfonamide Allergy Swelling Verified 06/18/23 15:53 Antibiotics) tongue walnut Allergy Anaphylaxis Verified 06/18/23 15:53 Review of Systems ROS Statement: Those systems with pertinent positive or pertinent negative responses have been documented in the HPI. ROS Other: All systems not noted in ROS Statement are negative. Past Medical History Past Medical History: Asthma, Liver Disease Additional Past Medical History / Comment(s): ascites,paracentesis 12/28/22, low platelets, previous ETOH abuse, closed head injury, seizures History of Any Multi-Drug Resistant Organisms: None Reported Past Surgical History: No Surgical Hx Reported Additional Past Surgical History / Comment(s): repair to spleen [place] Ruptured spleen in 1988 Past Anesthesia/Blood Transfusion Reactions: No Reported Reaction Additional Past Anesthesia/Blood Transfusion Reaction / Comment(s): Unsure if had blood transfusion in past Past Psychological History: Anxiety, Bipolar, Depression Smoking Status: Current every day smoker Past Alcohol Use History: None Reported Past Drug Use History: None Reported - Past Family History Sister(s) Additional Family Medical History / Comment(s): closed head injury Mother Family Medical History: Diabetes Mellitus, Hyperlipidemia General Exam Limitations: altered mental status General appearance: obtunded, cachectic, other (Jaundice) Eye exam: Present: conjunctival injection ENT exam: Present: mucous membranes dry Respiratory exam: Present: normal lung sounds bilaterally. Absent: respiratory distress, wheezes, rales, rhonchi, stridor Cardiovascular Exam: Present: regular rate, normal rhythm, normal heart sounds. Absent: systolic murmur, diastolic murmur, rubs, gallop, clicks GI/Abdominal exam: Present: distended Neurological exam: Present: altered Course Vital Signs 06/18/23 06/18/23 06/18/23 14:39 15:17 16:00 Temperature 97.7 F Pulse Rate 98 102 H 95 Respiratory 20 18 20 Rate Blood Pressure 83/59 89/56 83/55 O2 Sat by Pulse 96 97 Oximetry 06/18/23 06/18/23 06/18/23 18:10 18:22 19:21 Temperature Pulse Rate 93 93 96 Respiratory 20 18 18 Rate Blood Pressure 80/46 75/50 70/52 O2 Sat by Pulse 97 97 Oximetry 06/18/23 06/18/23 19:51 22:00 Temperature Pulse Rate 92 99 Respiratory 16 14 Rate Blood Pressure 68/49 79/50 O2 Sat by Pulse 96 97 Oximetry Medical Decision Making - Medical Decision Making Was pt. sent in by a medical professional or institution (, PA, HRIS SPECIALIST, urgent care, hospital, or retirement...) When possible be specific @ -No Did you speak to anyone other than the patient for history (EMS, parent, family, police, friend...)? What history was obtained from this source @ -Spoke with EMS, and father Did you review nursing and triage notes (agree or disagree)? Why? @ -I reviewed and agree with nursing and triage notes Were old charts reviewed (outside hosp., previous admission, EMS record, old EKG, old radiological studies, urgent care reports/EKG's, retirement records)? Report findings @ -I reviewed patient's recent hospitalization in April Differential Diagnosis (chest pain, altered mental status, abdominal pain women, abdominal pain men, vaginal bleeding, weakness, fever, dyspnea, syncope, headache, dizziness, GI bleed, back pain, seizure, CVA, palpatations, mental health, musculoskeletal)? @ -Differential Altered Mental Status: Hypoglycemia, DKA, hypercapnia, ETOH, overdose, CO poisoning, trauma, myxedema coma, HTN encephalopathy, infection, encephalitis, psychosis, intercranial hemorrhage, hepatic encephalopathy, meningitis, CVA, this is not meant to be an all-inclusive list EKG interpreted by me (3pts min.). @ -Yes and demonstrates sinus rhythm with a rate of 98. Parable 128. QRS 86. QTc of 436. No acute ST segment elevations. ST depression V4 through V6 X-rays interpreted by me (1pt min.). @ -Yes and demonstrates possible left-sided infiltrate CT interpreted by me (1pt min.). @ -None done U/S interpreted by me (1pt. min.). @ -None done What testing was considered but not performed or refused? (CT, X-rays, U/S, labs)? Why? @ -None What meds were considered but not given or refused? Why? @ -Antibiotics, packed red blood cells, vasopressors, rifaximin, lactulose, IV fluids - has opted to make patient hospice care Did you discuss the management of the patient with other professionals (professionals i.e. , PA, HRIS SPECIALIST, lab, RT, psych nurse, licensed social worker, luncheonette operator, teacher, lead security officer, onsite case manager)? Give summary @ -I discussed the patient's case with Dr. Fuentes. Also spoke with Dr. Amaya at [facility]. Was smoking cessation discussed for >3mins.? @ -No Was critical care preformed (if so, how long)? @ -No Were there social determinants of health that impacted care today? How? (Homelessness, low income, unemployed, alcoholism, drug addiction, transportation, low edu. Level, literacy, decrease access to med. care, prison, rehab)? @ -No Was there de-escalation of care discussed even if they declined (Discuss DNR or withdrawal of care, Hospice)? DNR status @ -Yes, would like to make the patient hospice What co-morbidities impacted this encounter? (DM, HTN, Smoking, COPD, CAD, Cancer, CVA, ARF, Chemo, Hep., AIDS, mental health diagnosis, sleep apnea, morbid obesity)? @ -EtOH abuse with liver cirrhosis Was patient admitted / discharged? Hospital course, mention meds given and route, prescriptions, significant lab abnormalities, going to OR and other pertinent info. @ -Upon arrival patient was placed into room 3. Thorough history and physical exam was performed. Patient is completely obtunded and cannot provide a history. She is hypotensive. She was given an IV fluid bolus. Laboratory studies are conducted. Hemoglobin is low. Chest x-ray demonstrates possible pneumonia. Bilirubin is markedly elevated. I discussed the case with Dr. Fuentes who recommended transfer due to no GI coverage. I did call and speak with Dr. Amaya at [facility]. She was agreeable to accept the patient as a transfer however they are extremely limited on beds and do not feel that the patient would get transferred tonight. She does look into the patient's charting. States that the patient is end-stage and [facility] Wright recommended hospice. Family was not ready to sign on at that time. I did call and discussed the case with the patient's . He does eventually present to the hospital. I did discuss hospital transfer however he is agreeable to hospice at this time. He states that he has been referred to hosp[facility] by [facility] as well as the primary care doctor. He understands that the patient has a terminal condition and immediate treatment with blood, antibiotics and IV fluids is only a temporizing measure. He wants the patient to be comfortable at this time. Blood transfusion is canceled. I did call and speak with the hospice nurse. She states that she will be able to evaluate the patient in the morning. I will admit the patient to Dr. Fuentes who was agreeable to the admission. Recommending that the patient not be given opiates. Patient is currently awaiting a bed on the floor with a very guarded prognosis and expectation that she will pass soon Undiagnosed new problem with uncertain prognosis? @ -No Drug Therapy requiring intensive monitoring for toxicity (Heparin, Nitro, Insulin, Cardizem)? @ -No Were any procedures done? @ -No Diagnosis/symptom? @ -Acute encephalopathy, hepatic encephalopathy, pneumonia, hypotension, thrombocytopenia, anemia, history of liver cirrhosis Acute, or Chronic, or Acute on Chronic? @ -Acute on chronic Uncomplicated (without systemic symptoms) or Complicated (systemic symptoms)? @ -Complicated Side effects of treatment? @ -No Exacerbation, Progression, or Severe Exacerbation? @ -No Poses a threat to life or bodily function? How? (Chest pain, [place], ND, pneumonia, PE, COPD, DKA, ARF, appy, cholecystitis, CVA, Diverticulitis, Homicidal, Suicidal, threat to staff... and all critical care pts) @ -Yes patient is expected to pass from this condition - Lab Data Result diagrams: 06/18/23 15:20 06/18/23 15:20 Lab Results 06/18/23 06/18/23 06/18/23 Range/Units 15:20 15:20 15:20 WBC 5.9 (3.8-10.6) k/uL RBC 1.46 L (3.80-5.40) m/uL Hgb 6.7 L* (11.4-16.0) gm/dL Hct 19.6 L* (34.0-46.0) % MCV 134.6 H D (80.0-100.0) fL MCH 46.1 H (25.0-35.0) pg MCHC 34.2 (31.0-37.0) g/dL RDW 19.7 H (11.5-15.5) % Plt Count 38 L (150-450) k/uL MPV 9.8 Neutrophils % (Manual) 85 % Lymphocytes % (Manual) 8 % Monocytes % (Manual) 7 % Neutrophils # (Manual) 5.02 (1.3-7.7) k/uL Lymphocytes # (Manual) 0.47 L (1.0-4.8) k/uL Monocytes # (Manual) 0.41 (0-1.0) k/uL Nucleated RBCs 4 H (0-0) /100 WBC Manual Slide Review Performed Polychromasia Present Hypochromasia Moderate Hypochromasia (manual) Present Poikilocytosis Marked Anisocytosis Slight Anisocytosis (manual) Present Macrocytosis Marked A Target Cells Present PT 26.7 H (10.0-12.5) sec INR 2.7 H (<1.2) APTT 40.6 H (22.0-30.0) sec Sodium 132 L (137-145) mmol/L Potassium 3.6 (3.5-5.1) mmol/L Chloride 100 (98-107) mmol/L Carbon Dioxide 20 L (22-30) mmol/L Anion Gap 12 mmol/L BUN 24 H (7-17) mg/dL Creatinine 0.75 (0.52-1.04) mg/dL Est GFR (CKD-EPI)AfAm >90 (>60 ml/min/1.73 sqM) Est GFR (CKD-EPI)NonAf >90 (>60 ml/min/1.73 sqM) Glucose 106 H (74-99) mg/dL POC Glucose (mg/dL) (70-110) mg/dL POC Glu New Product Trainer ID Calcium 8.3 L (8.4-10.2) mg/dL Total Bilirubin 22.1 H* (0.2-1.3) mg/dL AST 67 H (14-36) U/L ALT 30 (4-34) U/L Alkaline Phosphatase 114 (38-126) U/L Ammonia (<30) umol/L Lactate Dehydrogenase (120-246) U/L Troponin I (0.000-0.034) ng/mL Total Protein 6.4 (6.3-8.2) g/dL Albumin 2.6 L (3.5-5.0) g/dL Urine Color Urine Appearance (Clear) Urine pH (5.0-8.0) Ur Specific [place] (1.001-1.035) Urine Protein (Negative) Urine Glucose (UA) (Negative) Urine Ketones (Negative) Urine Blood (Negative) Urine Nitrite (Negative) Urine Bilirubin (Negative) Urine Urobilinogen (<2.0) mg/dL Ur Leukocyte Esterase (Negative) Urine RBC (0-5) /hpf Urine WBC (0-5) /hpf Ur Squamous Epith Cells (0-4) /hpf Urine Bacteria (None) /hpf Urine Mucus (None) /hpf Serum Alcohol <10 mg/dL Blood Type Blood Type Recheck Bld Type Recheck Status Antibody Screen Crossmatch 06/18/23 06/18/23 06/18/23 Range/Units 15:20 15:20 15:37 WBC (3.8-10.6) k/uL RBC (3.80-5.40) m/uL Hgb (11.4-16.0) gm/dL Hct (34.0-46.0) % MCV (80.0-100.0) fL MCH (25.0-35.0) pg MCHC (31.0-37.0) g/dL RDW (11.5-15.5) % Plt Count (150-450) k/uL MPV Neutrophils % (Manual) % Lymphocytes % (Manual) % Monocytes % (Manual) % Neutrophils # (Manual) (1.3-7.7) k/uL Lymphocytes # (Manual) (1.0-4.8) k/uL Monocytes # (Manual) (0-1.0) k/uL Nucleated RBCs (0-0) /100 WBC Manual Slide Review Polychromasia Hypochromasia Hypochromasia (manual) Poikilocytosis Anisocytosis Anisocytosis (manual) Macrocytosis Target Cells PT (10.0-12.5) sec INR (<1.2) APTT (22.0-30.0) sec Sodium (137-145) mmol/L Potassium (3.5-5.1) mmol/L Chloride (98-107) mmol/L Carbon Dioxide (22-30) mmol/L Anion Gap mmol/L BUN (7-17) mg/dL Creatinine (0.52-1.04) mg/dL Est GFR (CKD-EPI)AfAm (>60 ml/min/1.73 sqM) Est GFR (CKD-EPI)NonAf (>60 ml/min/1.73 sqM) Glucose (74-99) mg/dL POC Glucose (mg/dL) 112 H (70-110) mg/dL POC Glu New Product Trainer ID Sophie Alaniz Calcium (8.4-10.2) mg/dL Total Bilirubin (0.2-1.3) mg/dL AST (14-36) U/L ALT (4-34) U/L Alkaline Phosphatase (38-126) U/L Ammonia 28 (<30) umol/L Lactate Dehydrogenase (120-246) U/L Troponin I 0.387 H* (0.000-0.034) ng/mL Total Protein (6.3-8.2) g/dL Albumin (3.5-5.0) g/dL Urine Color Urine Appearance (Clear) Urine pH (5.0-8.0) Ur Specific [place] (1.001-1.035) Urine Protein (Negative) Urine Glucose (UA) (Negative) Urine Ketones (Negative) Urine Blood (Negative) Urine Nitrite (Negative) Urine Bilirubin (Negative) Urine Urobilinogen (<2.0) mg/dL Ur Leukocyte Esterase (Negative) Urine RBC (0-5) /hpf Urine WBC (0-5) /hpf Ur Squamous Epith Cells (0-4) /hpf Urine Bacteria (None) /hpf Urine Mucus (None) /hpf Serum Alcohol mg/dL Blood Type Blood Type Recheck Bld Type Recheck Status Antibody Screen Crossmatch 06/18/23 06/18/23 06/18/23 Range/Units 17:38 17:44 17:51 WBC (3.8-10.6) k/uL RBC (3.80-5.40) m/uL Hgb (11.4-16.0) gm/dL Hct (34.0-46.0) % MCV (80.0-100.0) fL MCH (25.0-35.0) pg MCHC (31.0-37.0) g/dL RDW (11.5-15.5) % Plt Count (150-450) k/uL MPV Neutrophils % (Manual) % Lymphocytes % (Manual) % Monocytes % (Manual) % Neutrophils # (Manual) (1.3-7.7) k/uL Lymphocytes # (Manual) (1.0-4.8) k/uL Monocytes # (Manual) (0-1.0) k/uL Nucleated RBCs (0-0) /100 WBC Manual Slide Review Polychromasia Hypochromasia Hypochromasia (manual) Poikilocytosis Anisocytosis Anisocytosis (manual) Macrocytosis Target Cells PT (10.0-12.5) sec INR (<1.2) APTT (22.0-30.0) sec Sodium (137-145) mmol/L Potassium (3.5-5.1) mmol/L Chloride (98-107) mmol/L Carbon Dioxide (22-30) mmol/L Anion Gap mmol/L BUN (7-17) mg/dL Creatinine (0.52-1.04) mg/dL Est GFR (CKD-EPI)AfAm (>60 ml/min/1.73 sqM) Est GFR (CKD-EPI)NonAf (>60 ml/min/1.73 sqM) Glucose (74-99) mg/dL POC Glucose (mg/dL) (70-110) mg/dL POC Glu New Product Trainer ID Calcium (8.4-10.2) mg/dL Total Bilirubin (0.2-1.3) mg/dL AST (14-36) U/L ALT (4-34) U/L Alkaline Phosphatase (38-126) U/L Ammonia (<30) umol/L Lactate Dehydrogenase 364 H (120-246) U/L Troponin I (0.000-0.034) ng/mL Total Protein (6.3-8.2) g/dL Albumin (3.5-5.0) g/dL Urine Color Brown Urine Appearance Cloudy H (Clear) Urine pH 6.0 (5.0-8.0) Ur Specific [place] 1.019 (1.001-1.035) Urine Protein Negative (Negative) Urine Glucose (UA) Negative (Negative) Urine Ketones Negative (Negative) Urine Blood Negative (Negative) Urine Nitrite Negative (Negative) Urine Bilirubin 2+ H (Negative) Urine Urobilinogen >12.0 (<2.0) mg/dL Ur Leukocyte Esterase Trace H (Negative) Urine RBC <1 (0-5) /hpf Urine WBC 20 H (0-5) /hpf Ur Squamous Epith Cells 1 (0-4) /hpf Urine Bacteria Many H (None) /hpf Urine Mucus Occasional H (None) /hpf Serum Alcohol mg/dL Blood Type Not Reportable Blood Type Recheck Not Reportable Bld Type Recheck Status Not Reportable Antibody Screen Not Reportable Crossmatch See Detail Disposition Clinical Impression: Hepatic encephalopathy, Decompensation of cirrhosis of liver, Jaundice, Anemia Disposition: ADMITTED IP TO THIS [facility] Condition: Critical Is patient prescribed a controlled substance at d/c from ED?: No Time of Disposition: 18:16 Decision to Admit Reason: Admit from EC Decision Date: 06/18/23 Decision Time: 18:16
[2023-06-18 15:49] LABS: ALT 30 U/L (4-34); AST 67 U/L (14-36); African American GFR (CKD) >90 (>60 ml/min/1.73 sqM); Albumin 2.6 g/dL (3.5-5.0); Alcohol <10 mg/dL; Anion Gap 12 mmol/L; Blood Urea Nitrogen 24 mg/dL (7-17); Calcium 8.3 mg/dL (8.4-10.2); Carbon Dioxide 20 mmol/L (22-30); Chloride 100 mmol/L (98-107); Glucose 106 mg/dL (74-99); Non-African American GFR(CKD) >90 (>60 ml/min/1.73 sqM); Potassium 3.6 mmol/L (3.5-5.1); Sodium 132 mmol/L (137-145)
[2023-06-18 15:50] LABS: HGB 6.7 gm/dL (11.4-16.0); MCH 46.1 pg (25.0-35.0)
[2023-06-18 15:51] LABS: HCT 19.6 % (34.0-46.0)
[2023-06-18 16:15] LABS: INR 2.7 (<1.2); Partial Thromboplastin Time 40.6 sec (22.0-30.0); Prothrombin Time 26.7 sec (10.0-12.5)
[2023-06-18 16:28] LABS: Alkaline Phosphatase 114 U/L (38-126); Total Bilirubin 22.1 mg/dL (0.2-1.3); Total Protein 6.4 g/dL (6.3-8.2)
[2023-06-18 16:31] LABS: Anisocytosis (M) Present; Hypochromasia (M) Present; Lymphocytes # (M) 0.47 k/uL (1.0-4.8); Monocytes # (M) 0.41 k/uL (0-1.0); Neutrophils # (M) 5.02 k/uL (1.3-7.7); Neutrophils % (M) 85 %; Nucleated Red Blood Cells 4 /100 WBC (0-0); Polychromasia Present; Target Cells Present; Total Cells Counted 100; WBC 5.9 k/uL (3.8-10.6)
--- NOTE | 2023-06-18 16:36 | CT ---
EXAMINATION TYPE: CT brain wo con DATE OF EXAM: 06/18/2023 COMPARISON: 01/14/2023 HISTORY: AMS CT DLP: 1187.4 mGycm Automated exposure control for dose reduction was used. FINDINGS: The ventricles, basal cisterns and sulci over convexities are moderately enlarged consistent with mod erate atrophy. There is moderate decreased density in the periventricular white matter consistent wit h moderate chronic ischemic white matter demyelination. There is no mass effect or shift of midline structures. There is no acute intra or extra-axial hemorrhage. Posterior fossa is grossly normal. The intraorbital contents appear normal and symmetric. The mastoid air cells and paranasal sinuses are well aerated. IMPRESSION: 1. Moderate atrophy and chronic ischemic white matter demyelination. 2. No acute bleed or mass effect. 3. No significant interval change. IMPRESSION:
--- NOTE | 2023-06-18 16:47 | XR ---
EXAMINATION: XR chest 2V: 06/18/2023 4:20 PM CLINICAL INDICATION: Cough/pain TECHNIQUE: Departmental protocol COMPARISON: 03/22/2023 FINDINGS / IMPRESSION: There is a large left pleural effusion silhouetting the left hemidiaphragm and providing a homogeneou sly dense left mid and lower lung zone appearance on the frontal radiograph. There is associated airl essness throughout the left mid and lower lung zones, consistent with atelectasis and/or pneumonia. L eft upper lung zone is clear. Right lung appears clear and the right pleural space is negative. The cardiac silhouette is not enlarged. The remainder of the mediastinal silhouette is unremarkable. The skeletal structures and soft tissues are negative for acute findings.
[2023-06-18 17:46] LABS: LDH 364 U/L (120-246)
[2023-06-18] MEDS ORDERED: NALOXONE 0.4 MG/ML 1 ML VIAL IV PRN (18:16)
[2023-06-18] MEDS: LACTULOSE 200 GM/300 ML (FROM 1/2 GAL JUG) RECTAL SCH (18:42)
[2023-06-18 18:59] LABS: Appearance,Urine Cloudy (Clear); Bacteria,Urine Many /hpf; Bilirubin,Urine 2+ (Negative); Blood,Urine Negative (Negative); Color,Urine Brown; Glucose,Urine (UA) Negative (Negative); Ketones,Urine Negative (Negative); Leukocyte Esterase,Urine Trace (Negative); Mucus,Urine Occasional /hpf; Nitrite,Urine Negative (Negative); Protein,Urine Negative (Negative); RBC,Urine <1 /hpf (0-5); Specific Gravity,Urine 1.019 (1.001-1.035); Squamous Epithelial Cell,Urine 1 /hpf (0-4); Urobilinogen,Urine >12.0 mg/dL (<2.0); WBC,Urine 20 /hpf (0-5)
[2023-06-18] MEDS ORDERED: GLYCOPYRROLATE 0.2 MG/ML 2 ML VIAL IVP PRN (23:42)
[2023-06-19 03:33] LABS: GGT <10 U/L (0-38)
--- NOTE | 2023-06-19 12:09 | P.HPIM ---
History of Present Illness H&P Date: 06/19/23 Chief Complaint: Brought by EMS to the ER with obtundation lethargy with the yellowish disco On the physical exam: Patient was obtunded could not give any history Head was normocephalic atraumatic severe dryness of the mouth with secretion discussed with the nursing staff for oral care No hearing devices Skin is yellowish due to her bilirubin 22. Neck was supple no lymphadenopathy no thyromegaly no stiffness Her chest is increased anteroposterior diameter with hyperinflation with a history of chronic smoker, pack per day for more than 30 years Heart was regular sinus rhythm and with the severe hypotension and blood pressure was ranging between 83/55 and she was giving at home medication with applesauce but she had not taken her medication appropriately because of loss of appetite and not eating. GI she had protuberant abdomen with ascites however she had drained in April and she had umbilicus was projection with umbilical hernia She will wear a diaper because of the incontinent of the urine and stools. Extremities she had 1+ edema and positive pulses Musculoskeletal muscle atrophy and cachectic Skin discolored yellowish discoloration deep yellowish to greenish On the left lower extremities she had blistering. She had history of surgery with the mid abdominal scar with a history of rupture spleen was treated in [place]. And the palpation of the liver atrophic. And had previously ultrasound on her last admission was mainly for the ascites. With the underlying liver cirrhosis and portal hypertension. Neurologically: Obtundation lethargy with hepatic encephalopathy and elevated ammonia level. Assessment #1 terminal stage of alcoholic liver disease, decompensation of the alcoholic liver disease Liver cirrhosis end-stage with portal hypertension and ascites 3. Thrombocytopenia, severe anemia, and 4. Normal CT scan of the brain 5. Mild elevation of troponin without chest pain due to effect of end-stage liver disease 6. Severe hypotension with hemodynamically unstable 6. Metabolic encephalopathy. 7. Macrocytic hypochromic anemia associated with alcoholic liver disease 8. Decompensated alcoholic liver disease with cirrhosis with the progression with the failure of previous treatment at [facility]. 9. Failure to thrive with the end-stage Plan: 1. Patient will be transferred to hospice care 2. Patient will be discharged to hospice care at home as discussed with the hospice nurse ALFRED Lowery 3. To be under care of Dr. Patterson, hospitalist physician. Past Medical History Past Medical History: Asthma, Liver Disease Additional Past Medical History / Comment(s): ascites,paracentesis 12/28/22, low platelets, previous ETOH abuse, closed head injury, seizures History of Any Multi-Drug Resistant Organisms: None Reported Past Surgical History: No Surgical Hx Reported Additional Past Surgical History / Comment(s): repair to spleen [place] Ruptured spleen in 1988 Past Anesthesia/Blood Transfusion Reactions: No Reported Reaction Additional Past Anesthesia/Blood Transfusion Reaction / Comment(s): Unsure if had blood transfusion in past Past Psychological History: Anxiety, Bipolar, Depression Smoking Status: Current every day smoker Past Alcohol Use History: None Reported Past Drug Use History: None Reported - Past Family History Sister(s) Additional Family Medical History / Comment(s): closed head injury Mother Family Medical History: Diabetes Mellitus, Hyperlipidemia Medications and Allergies Home Medications Medication Instructions Recorded Confirmed Type Potassium Chloride ER [K-Dur 10] 10 meq PO DAILY 10/01/22 06/18/23 History Thiamine [Vitamin B-1] 100 mg PO DAILY 10/01/22 06/18/23 History levETIRAcetam [Keppra] 500 mg PO Q12HR #60 tab 01/05/23 06/18/23 Rx Spironolactone [Aldactone] 100 mg PO DAILY #30 tab 01/15/23 06/18/23 Rx Midodrine [ProAmatine] 15 mg PO AC-TID 30 Days #270 tab 03/06/23 06/18/23 Rx Rifaximin [Xifaxan] 550 mg PO BID 30 Days #60 tab 03/06/23 06/18/23 Rx Furosemide [Lasix] 40 mg PO BID@0900,1600 30 Days #60 03/11/23 06/18/23 Rx tab Pantoprazole [Protonix] 40 mg PO DAILY 06/18/23 06/18/23 History Zbn-Gvod-Uautu Acid 1 cap PO DAILY 06/18/23 06/18/23 History [-U Capsule (formulary)] Allergies Allergy/AdvReac Type Severity Reaction Status Date / Time Penicillins Allergy Swelling Verified 06/18/23 15:53 tongue Sulfa (Sulfonamide Allergy Swelling Verified 06/18/23 15:53 Antibiotics) tongue walnut Allergy Anaphylaxis Verified 06/18/23 15:53 Physical Exam Vitals: Vital Signs Temp Pulse Resp BP Pulse Ox 06/19/23 11:00 106 H 16 83/49 97 06/19/23 09:58 109 H 18 83/46 94 L 06/19/23 09:00 103 H 16 76/46 94 L 06/19/23 08:00 104 H 13 80/46 93 L 06/19/23 07:00 102 H 14 77/45 99 06/19/23 06:15 97.5 F L 103 H 16 77/45 100 06/19/23 06:00 103 H 16 79/49 100 06/19/23 05:00 102 H 16 77/46 96 06/19/23 03:00 99 15 75/50 97 06/19/23 00:00 100 15 76/47 97 06/18/23 22:00 99 14 79/50 97 06/18/23 19:51 92 16 68/49 96 06/18/23 19:21 96 18 70/52 97 06/18/23 18:22 93 18 75/50 97 06/18/23 18:10 93 20 80/46 06/18/23 16:00 95 20 83/55 06/18/23 15:17 102 H 18 89/56 97 06/18/23 14:39 97.7 F 98 20 83/59 96 Intake and Output 06/18/23 06/19/23 06/19/23 22:59 06:59 14:59 Output Total 160 Balance -160 Output: Urine 160 Straight 160 Results CBC & Chem 7: 06/18/23 15:20 06/18/23 15:20 Labs: Abnormal Lab Results - Last 24 Hours (Table) 06/18/23 06/18/23 06/18/23 Range/Units 15:20 15:20 15:20 RBC 1.46 L (3.80-5.40) m/uL Hgb 6.7 L* (11.4-16.0) gm/dL Hct 19.6 L* (34.0-46.0) % MCV 134.6 H D (80.0-100.0) fL MCH 46.1 H (25.0-35.0) pg RDW 19.7 H (11.5-15.5) % Plt Count 38 L (150-450) k/uL Lymphocytes # (Manual) 0.47 L (1.0-4.8) k/uL Nucleated RBCs 4 H (0-0) /100 WBC Macrocytosis Marked A PT 26.7 H (10.0-12.5) sec INR 2.7 H (<1.2) APTT 40.6 H (22.0-30.0) sec Sodium 132 L (137-145) mmol/L Carbon Dioxide 20 L (22-30) mmol/L BUN 24 H (7-17) mg/dL Glucose 106 H (74-99) mg/dL POC Glucose (mg/dL) (70-110) mg/dL Calcium 8.3 L (8.4-10.2) mg/dL Total Bilirubin 22.1 H* (0.2-1.3) mg/dL AST 67 H (14-36) U/L Lactate Dehydrogenase (120-246) U/L Troponin I (0.000-0.034) ng/mL Albumin 2.6 L (3.5-5.0) g/dL Urine Appearance (Clear) Urine Bilirubin (Negative) Ur Leukocyte Esterase (Negative) Urine WBC (0-5) /hpf Urine Bacteria (None) /hpf Urine Mucus (None) /hpf Crossmatch 06/18/23 06/18/23 06/18/23 Range/Units 15:20 15:37 17:38 RBC (3.80-5.40) m/uL Hgb (11.4-16.0) gm/dL Hct (34.0-46.0) % MCV (80.0-100.0) fL MCH (25.0-35.0) pg RDW (11.5-15.5) % Plt Count (150-450) k/uL Lymphocytes # (Manual) (1.0-4.8) k/uL Nucleated RBCs (0-0) /100 WBC Macrocytosis PT (10.0-12.5) sec INR (<1.2) APTT (22.0-30.0) sec Sodium (137-145) mmol/L Carbon Dioxide (22-30) mmol/L BUN (7-17) mg/dL Glucose (74-99) mg/dL POC Glucose (mg/dL) 112 H (70-110) mg/dL Calcium (8.4-10.2) mg/dL Total Bilirubin (0.2-1.3) mg/dL AST (14-36) U/L Lactate Dehydrogenase 364 H (120-246) U/L Troponin I 0.387 H* (0.000-0.034) ng/mL Albumin (3.5-5.0) g/dL Urine Appearance (Clear) Urine Bilirubin (Negative) Ur Leukocyte Esterase (Negative) Urine WBC (0-5) /hpf Urine Bacteria (None) /hpf Urine Mucus (None) /hpf Crossmatch 06/18/23 06/18/23 Range/Units 17:44 17:51 RBC (3.80-5.40) m/uL Hgb (11.4-16.0) gm/dL Hct (34.0-46.0) % MCV (80.0-100.0) fL MCH (25.0-35.0) pg RDW (11.5-15.5) % Plt Count (150-450) k/uL Lymphocytes # (Manual) (1.0-4.8) k/uL Nucleated RBCs (0-0) /100 WBC Macrocytosis PT (10.0-12.5) sec INR (<1.2) APTT (22.0-30.0) sec Sodium (137-145) mmol/L Carbon Dioxide (22-30) mmol/L BUN (7-17) mg/dL Glucose (74-99) mg/dL POC Glucose (mg/dL) (70-110) mg/dL Calcium (8.4-10.2) mg/dL Total Bilirubin (0.2-1.3) mg/dL AST (14-36) U/L Lactate Dehydrogenase (120-246) U/L Troponin I (0.000-0.034) ng/mL Albumin (3.5-5.0) g/dL Urine Appearance Cloudy H (Clear) Urine Bilirubin 2+ H (Negative) Ur Leukocyte Esterase Trace H (Negative) Urine WBC 20 H (0-5) /hpf Urine Bacteria Many H (None) /hpf Urine Mucus Occasional H (None) /hpf Crossmatch See Detail
[2023-06-19] MEDS: FUROSEMIDE 40 MG TAB PO SCH (12:10)
[2023-06-19] MEDS: PRENATAL VIT-IRON-FOLIC ACID 1 EACH TABLET PO SCH (12:10)
[2023-06-19] MEDS: POTASSIUM CHLORIDE ER 10 MEQ TAB.ER.PRT PO SCH (12:11)
[2023-06-19] MEDS: THIAMINE 100 MG TAB PO SCH (12:11)
[2023-06-19] MEDS: RIFAXIMIN 550 MG TABLET PO SCH (12:11)
[2023-06-19] MEDS: SPIRONOLACTONE 25 MG TAB PO SCH (12:11)
[2023-06-19] MEDS: MIDODRINE 5 MG TAB PO SCH (12:11)
--- NOTE | 2023-06-19 12:39 | P.DS ---
Providers Date of admission: 06/18/23 18:18 Expected date of discharge: 06/19/23 Attending physician: Travon Fuentes Consults: Consulting hospice care who accepted the patient to be discharged today and to be under hospice care with the hospice nurse felicia Lowery RN and the attending for hospice Dr. Luis GONSALES, Patient will be discharged from the ER direct home under hospice care Primary care physician: Travon Fuentes Discharge diagnosis Same as admission diagnosis with the terminal end-stage alcoholic liver cirrhosis Decompensation of alcoholic liver cirrhosis Alcoholic metabolic encephalopathy with obtundation Severe hypotension Severe anemia Macrocytic hypochromic Thrombocytopenia Elevated INR and abnormal coagulopathy secondary to the liver cirrhosis History of seizure disorder Severe generalized weakness. Portal hypertension with ascites and history of bleeding in the past. Repeated recurrent hospitalization with no improvement Failure to thrive. Plan: 1. Referred to hospice care 2. Patient did not have criteria for inpatient hospice and will be discharged home to be followed by in house hospice care with comfort care as well. 3. Patient will be followed also by the hospice physician as discussed with hospice nurse ALFRED Lowery. Patient Condition at Discharge: Critical Plan - Discharge Summary New Discharge Prescriptions: No Action Spironolactone [Aldactone] 100 mg PO DAILY #30 tab Pantoprazole [Protonix] 40 mg PO DAILY Uws-Sayf-Ltozr Acid [-U Capsule (formulary)] 1 cap PO DAILY Potassium Chloride ER [K-Dur 10] 10 meq PO DAILY Thiamine [Vitamin B-1] 100 mg PO DAILY levETIRAcetam [Keppra] 500 mg PO Q12HR #60 tab Midodrine [ProAmatine] 15 mg PO AC-TID 30 Days #270 tab Rifaximin [Xifaxan] 550 mg PO BID 30 Days #60 tab Furosemide [Lasix] 40 mg PO BID@0900,1600 30 Days #60 tab Discharge Medication List Potassium Chloride ER [K-Dur 10] 10 meq PO DAILY 10/01/22 [History] Thiamine [Vitamin B-1] 100 mg PO DAILY 10/01/22 [History] levETIRAcetam [Keppra] 500 mg PO Q12HR #60 tab 01/05/23 [Rx] Spironolactone [Aldactone] 100 mg PO DAILY #30 tab 01/15/23 [Rx] Midodrine [ProAmatine] 15 mg PO AC-TID 30 Days #270 tab 03/06/23 [Rx] Rifaximin [Xifaxan] 550 mg PO BID 30 Days #60 tab 03/06/23 [Rx] Furosemide [Lasix] 40 mg PO BID@0900,1600 30 Days #60 tab 03/11/23 [Rx] Pantoprazole [Protonix] 40 mg PO DAILY 06/18/23 [History] Wkc-Drpx-Adtxk Acid [-U Capsule (formulary)] 1 cap PO DAILY 06/18/23 [History] Follow up Appointment(s)/Referral(s): Travon Fuentes MD [Primary Care Provider] - 1-2 days Jaimee Alex [NON-STAFF] - 06/19/23 Discharge Disposition: HOME WITH HOSPICE
[2023-06-19] MEDS: MORPHINE SULFATE 4 MG/ML SYRINGE IVP STA (13:29)
[2023-06-19] MEDS ORDERED: MORPHINE SULFATE 2 MG/ML SYRINGE IV PRN (14:23)
[2023-06-19] MEDS ORDERED: ATROPINE OPHTH SOLN 1% 5ML BTL SUBLINGUAL PRN (14:23)
[2023-06-19] MEDS ORDERED: ONDANSETRON 4 MG/2 ML VIAL IVP PRN (14:23)
[2023-06-19] MEDS ORDERED: LORazepam 2 MG/ML INJ IV PRN (14:23)
[2023-06-19] MEDS: MORPHINE SULFATE (100 MG/2 ML) 100 MG in SODIUM CHLORIDE 0.9% 100 ML IV SCH (15:26)
[2023-06-20] MEDS: PANTOPRAZOLE 40 MG TABLET PO SCH (08:08)
[2023-06-20 14:33] VITALS: BP 75/47; PULSE 107; RESP 14; TEMP 97.3
--- NOTE | 2023-06-20 14:37 | P.PN ---
Subjective Progress Note Date: 06/20/23 (Comfort care) Principal diagnosis: Diagnosis 1. Alcoholic hepatitis 2. End-stage liver cirrhosis 3. Hepatic encephalopathy with obtundation and not responding 4. Severe anemia secondary to above 5. Ascites with portal hypertension 6. Extreme elevation of bilirubin, jaundiced. 7. AST> more than 2 time ALT 8. Elevated PT, PTT, INR 9. Failure to thrive 10. Hospital agreed for hospice and comfort care 11. Hospice did not accept to the patient due to severe hemodynamic abnormalities with hypotension Progress note Date of service 06/20/[address] Fuentes Patient seen evaluated [id number] Patient obtunded not responding to verbal stimuli with agonal breathing. On exam Vital sign blood pressure 75/47, heart rate 107, oxygen saturation on room air 97%, temperature 97.3 Skin deep yellowish-green with left leg blisters Head normocephalic atraumatic pupil still reactive, sclera is icteric, no infection Oropharynx unable to respond to eating or swallowing do not take any medication, not responding to take any medicine at this time with the end-stage liver disease. Neck no JVD no thyromegaly no lymphadenopathy trachea midline Chest increased anteroposterior diameter with a history of COPD and she had pleural effusion with the associated abdominal situs which was drained in April 1 month ago or less in [facility] with the recovered 9 L. Admission with the hospitalist. Lungs still irrigated in the right lung. Heart regular sinus rhythm with tachycardia patient not awake to complain of anything or chest pain or any other complaint Abdomen: Soft could not palpate enlarged liver however more of cirrhosis, mid abdomen incision through the around the umbilicus down to lower abdomen due to history of splenic rupture and repair in [place] Extremities: Positive pulses 1+ edema blistering on the left leg and could not move her extremities even with pinprick with flaccid She had a CT of the brain on admission was negative. Assessment and discussion. 1. Patient had advanced alcoholic liver disease has been treated since 2011 in [place] and worsening on 2018 2. Information obtained from her who stated that health care in [place] was not helping him or his lives with currently for more than 12 years in [place], but he 2021 and moved with his to [place] and she had been worsening since then and has been from hospital to hospital seen by multiple physicians, he was seen [facility] by several hospitalist as well as referred due to [facility] in [place] which referred her to [facility], could not do any rehabilitation with the progression of her disease and subsequently they sent her to [facility] will also treated her without discussion with her and the regarding of her stages and they told her that she is not fit for transplantation of the liver with her severe disease subsequently she was discharged from [facility] to home Last visit in April this a month ago in [facility] by the hospitalist where the treated the patient aspirated the ascites 9 L and send her home patient progressed severely and looking for a physician until I saw patient in the interview and subsequently patient admitted to the ER Dr. MCLEOD has seen the patient and tried to transfer the patient to [facility] and no GI consulting physician as Dr. Oliveira was not available to them. Subsequently Dr. Haider did spoke with her after could not hold her family her parents, he agreed that the patient need hospice and for that purpose consultation with hospice was obtained Subsequently hospice nurse did see the patient and spoke to me on the phone, and stated that could not accepted the patient as inpatient hospice because did not feel the criteria of hospice inpatient and the will be admitted her to the home hospice and she will related the admission note and requested me to dictate discharge as well as a transfer to hospice care which I did. Subsequently I received a call from [facility] ER nurse stated that patiently need to be admitted, discussed that the patient under hospice now care and they should get the: Sent which the already admitted the consent and agreed to Dr. Fair but they can call him and get consent on the phone and patient could be transferred to the eye between her family with the comfort care I was not notified with the events however the nurse in the ER had talked to the hospice nurse who addresses that the patient hemodynamically unstable could not be transferred to her home and admitted as comfort care to the hospital however they did not call me to let me know that the patient admitted to the hospital under my care. I found today that the patient still in the hospital and I did come and see her and clarify the issue Patient currently on comfort care only with the plan to discontinue all medication except comfort care medication and she is on morphine and Ativan and atropine with the agonal breathing no further laboratories and family has been notified. Plan: Patient expected however may take longer time because of her lung and the heart still valid Tabriz she had a Salvador catheter for comfort as well as morphine for comfort care I did consult social insurance analyst for family support as well and address future plan with the patient . Objective - Vital Signs Vital signs: Vital Signs Temp 97.3 F L 06/20/23 13:53 Pulse 107 H 06/20/23 13:53 Resp 14 06/20/23 13:53 BP 75/47 06/20/23 13:53 Pulse Ox 90 L 06/20/23 13:53 FiO2 Intake & Output 06/19/23 06/20/23 06/20/23 18:59 06:59 18:59 Output Total 300 0 Balance -300 0 Weight 58.967 kg Output: Urine 300 Stool 0 0 Other: Voiding Method Diaper Indwelling Catheter Indwelling Catheter Incontinent - Labs CBC & Chem 7: 06/18/23 15:20 06/18/23 15:20
[2023-06-20] MEDS: MORPHINE SULFATE (100 MG/2 ML) 100 MG in SODIUM CHLORIDE 0.9% 100 ML IV SCH (18:13)
--- NOTE | 2023-06-22 11:48 | P.DS ---
Providers Date of admission: 06/18/23 18:18 Expected date of discharge: 06/21/23 ( 2: 30 9 AM) Attending physician: Travon Fuentes Primary care physician: Travon Fuentes Date of service 06/21/2023 Disposition: Patient was admitted on comfort care with the expectation of Diagnosis: 1. Terminal alcoholic cirrhosis of the liver 2. Alcoholic hepatitis complicated 3. High bilirubin with yellow jaundice 4. Ascites 5. Probably associated with portal hypertension 6. COPD with history of chronic smoking. 7. Coagulation abnormalities with the elevated PT and PTT and INR 8. Hyperbilirubinemia 22 9. History of melena and hematemesis in the past 10. Recurrent admission by several physician and hospitalist. Patient seen in the emergency room by Dr. Fair discussed with her before transferred her to [facility] where she was treated in the past in [facility] and subsequently transferred to rehabilitation in [facility], which they could not perform any rehabilitation due to severe illness and transfer her to [facility] where the treated her and send her home Patient had several admission to [facility] by the history with different physicians and the hospitalist. This is a first-time patient seen by myself and only seen once for interview subsequently patient sent to the ER by her parents by ambulance where patient seen by Dr. Fair ER physicians and talked to her who agreed with hospice Discussion with the Beverley Baer nurse of hospice she indicated that the patient qualify only to home hospice and they will ask me to dictate discharge summary and they will resume order for hospitalist by there are on hospice physician Dr. Smith. Subsequently I received a call from the ER by nurse indicating that the patient unstable hemodynamically to be transferred home to between her family advised to contact the hospice care and subsequently hospice denied the admission to their service and patient admitted to the floor with the comfort care and morphine drip I did follow her on Thursday and I spoke with her who agreed with the process and he understand the patient outcome and she will be dying I was called by the phone Gabriella at 3:00 AM after midnight and the nurse notified me that the patient at 2: 30 9 PM and the family notified. Patient Condition at Discharge: Critical Plan - Discharge Summary New Discharge Prescriptions: No Action Spironolactone [Aldactone] 100 mg PO DAILY #30 tab Pantoprazole [Protonix] 40 mg PO DAILY Wet-Opvt-Dhake Acid [-U Capsule (formulary)] 1 cap PO DAILY Potassium Chloride ER [K-Dur 10] 10 meq PO DAILY Thiamine [Vitamin B-1] 100 mg PO DAILY levETIRAcetam [Keppra] 500 mg PO Q12HR #60 tab Midodrine [ProAmatine] 15 mg PO AC-TID 30 Days #270 tab Rifaximin [Xifaxan] 550 mg PO BID 30 Days #60 tab Furosemide [Lasix] 40 mg PO BID@0900,1600 30 Days #60 tab Discharge Medication List Potassium Chloride ER [K-Dur 10] 10 meq PO DAILY 10/01/22 [History] Thiamine [Vitamin B-1] 100 mg PO DAILY 10/01/22 [History] levETIRAcetam [Keppra] 500 mg PO Q12HR #60 tab 01/05/23 [Rx] Spironolactone [Aldactone] 100 mg PO DAILY #30 tab 01/15/23 [Rx] Midodrine [ProAmatine] 15 mg PO AC-TID 30 Days #270 tab 03/06/23 [Rx] Rifaximin [Xifaxan] 550 mg PO BID 30 Days #60 tab 03/06/23 [Rx] Furosemide [Lasix] 40 mg PO BID@0900,1600 30 Days #60 tab 03/11/23 [Rx] Pantoprazole [Protonix] 40 mg PO DAILY 06/18/23 [History] Rko-Ddlu-Zaoyc Acid [-U Capsule (formulary)] 1 cap PO DAILY 06/18/23 [History] Follow up Appointment(s)/Referral(s): HospiceJaimee [NON-STAFF] - 06/19/23 Travon Fuentes MD [Primary Care Provider] - 1-2 days Discharge Disposition: Care Plan Goals (MU): Patient initially presented to the emergency room with a terminal stage alcoholic hepatitis, liver cirrhosis, yellow jaundice and ascites and hepatic encephalopathy with the severe hypotension, initially patient referred to hospice, accepted her as a home hospice, subsequently refused to continue as patient unstable hemodynamic and patient admitted on comfort care to the hospital. Patient on 06/21/2023 at 2:39 AM with the family notified. - Preliminary Cause of Preliminary Cause of : Terminal alcoholic liver cirrhosis, alcoholic hepatitis, jaundice, hepatic
== END 2023-06-21 02:39 | disposition expired | DRG 862 ==
LOC: EC 14:34 → 3SCARD 18:18 → 5NMEDONC 06-19 14:23
PROVIDERS: ADMIT Internal Medicine; ATTEND Internal Medicine
DX: Z51.5 Encounter for palliative care (principal); I95.9 Hypotension, unspecified; Z66 Do not resuscitate; D68.4 Acquired coagulation factor deficiency; D50.9 Iron deficiency anemia, unspecified; R64 Cachexia; K72.10 Chronic hepatic failure without coma; D69.6 Thrombocytopenia, unspecified; K70.11 Alcoholic hepatitis with ascites; K70.31 Alcoholic cirrhosis of liver with ascites; F10.20 Alcohol dependence, uncomplicated; K76.6 Portal hypertension; G93.41 Metabolic encephalopathy; K76.82 Hepatic encephalopathy; R62.7 Adult failure to thrive; Z68.21 Body mass index [BMI] 21.0-21.9, adult; F17.200 Nicotine dependence, unspecified, uncomplicated; F31.9 Bipolar disorder, unspecified; F41.9 Anxiety disorder, unspecified; G40.909 Epilepsy, unspecified, not intractable, without status epilepticus; Z79.899 Other long term (current) drug therapy; Z88.0 Allergy status to penicillin; Z88.2 Allergy status to sulfonamides; Z28.21 Immunization not carried out because of patient refusal; Z87.19 Personal history of other diseases of the digestive system; Z91.018 Allergy to other foods
CPT/HCPCS: 36415; 70450; 71046; 80053; 80320; 81001; 82140; 82977; 83615; 84484; 85025; 85610; 85730; 86850; 86900; 86901; 87077; 87086; 87186; 93005; 96361; 96365; 96375; 99285